=== PATIENT | female | born 1940 | race Caucasian/White ===

== ENCOUNTER 2017-01-31 07:00 | Day surgery (SDC) | payer MEDICARE, BC ==
[2017-01-28 15:43] VITALS: BMI 34.0
[~2017-01-31 07:00] MED LIST: LACTATED RINGERS 1,000 ML IV SCH
[2017-01-31 07:16] VITALS: TEMP 97.6
[2017-01-31 07:26] LABS: Glucose,Whole Blood 115 mg/dL (75-99)
[2017-01-31] MEDS ORDERED: LACTATED RINGERS 1,000 ML IV ONE (07:26)
[2017-01-31] MEDS ORDERED: PROPOFOL 10 MG/ML 20 ML VIAL IV ONE (07:30)
--- NOTE | 2017-01-31 08:04 | P.PCN ---
Date of Procedure: 01/31/17 Procedure(s) Performed: BRIEF HISTORY: Patient is a 76-year-old pleasant white female, scheduled for an elective colonoscopy as a part of evaluation of change in bowel habits for the last 7 weeks duration. She is been having severe constipation despite laxatives and regular basis. PROCEDURE PERFORMED: Colonoscopy with biopsy. PREOPERATIVE DIAGNOSIS: Change in bowel habits. IV sedation per Anesthesia. PROCEDURE: After informed consent was obtained, the patient, was brought into the endoscopy unit. IV sedation was administered by Anesthesia under continuous monitoring. Digital rectal examination was normal. Initially the Olympus CF- 160 flexible video colonoscope was then inserted in the rectum, gradually advanced into the cecum without any difficulty. Careful examination was performed as the scope was gradually being withdrawn. Ileocecal valve and the appendiceal orifice were visualized and appeared normal. Prep was excellent. Mucosa of the cecum, ascending colon, transverse colon, appeared normal. In the descending colon there was a 5 mm polyp that was removed by biopsy. In the sigmoid colon there was another 5 mm polyp removed by biopsy. Moderate left sided diverticulosis seen. The rest of the descending colon, sigmoid colon, and rectum appeared normal. Retroflexion was performed in the rectum and no lesions were seen. The patient tolerated the procedure well. IMPRESSION: 5 mm descending colon polyp status post removal by biopsy 5 mm sigmoid colon polyp status post removal by biopsy Moderate left sided diverticulosis RECOMMENDATIONS: Findings of this examination were discussed with the patient as well as her family. She was advised to follow with the biopsy results. She will continue with her current laxative regimen. If the biopsy shows tubular adenoma, she can have a repeat colonoscopy in 5 years.
[2017-01-31 08:19] VITALS: BP 165/74; PULSE 54; RESP 18
== END 2017-01-31 08:35 | disposition home or self-care (01) ==
LOC: ORWHC2ENDO 07:00
PROVIDERS: ATTEND Internal Medicine Gastroenterology
DX: D12.5 Benign neoplasm of sigmoid colon (principal); K63.5 Polyp of colon; K57.30 Diverticulosis of large intestine without perforation or abscess without bleeding; K59.00 Constipation, unspecified; I48.91 Unspecified atrial fibrillation; I10 Essential (primary) hypertension; E78.5 Hyperlipidemia, unspecified; Z86.718 Personal history of other venous thrombosis and embolism; Z86.711 Personal history of pulmonary embolism; J44.9 Chronic obstructive pulmonary disease, unspecified; Z99.81 Dependence on supplemental oxygen; F39 Unspecified mood [affective] disorder; K21.9 Gastro-esophageal reflux disease without esophagitis; Z88.0 Allergy status to penicillin; Z79.01 Long term (current) use of anticoagulants; Z79.82 Long term (current) use of aspirin; Z79.899 Other long term (current) drug therapy
CPT/HCPCS: 88305; 45380; J2704

== ENCOUNTER 2017-09-08 10:04 | Emergency (ER) | payer MEDICARE, BC ==
[2017-09-08] MEDS ORDERED: HYDROcodone/APAP 5-325MG 1 EACH TAB PO STA (11:36)
--- NOTE | 2017-09-08 11:40 | ED ---
Extremity Problem HPI - General Chief complaint: Extremity Problem,Nontraumatic Stated complaint: rt knee pain Time Seen by Provider: 09/08/17 10:28 Source: patient Mode of arrival: wheelchair Limitations: no limitations - History of Present Illness Initial comments: Patient is a 77-year-old female with a history of MTHFR mutation, multiple DVTs , pulmonary embolism, and [place] filter, currently under alto, who presents with a chief complaint of right-sided knee and lower leg pain. The patient cannot identify inciting incident or pain. She describes it as sharp, dull, and aching. She states it's worse with movement, alleviated with rest. She's been trying Tylenol for pain relief without effect. Patient denies any swelling , she denies missing any doses of her medication. She denies shortness of breath, or chest pain. - Related Data Home Medications Medication Instructions Recorded Confirmed Atorvastatin Calcium [Lipitor] 10 mg PO HS 01/28/17 09/08/17 Brinzolamide/Brimonidine Tart 1 drop BOTH EYES BID 01/28/17 09/08/17 [Simbrinza 1%-0.2% Eye Drops] Fluticasone/Vilanterol [Breo 1 inhalation PO RT-DAILY 01/28/17 09/08/17 Ellipta 100-25 Mcg Inhaler] Folic Acid 1 mg PO DAILY 01/28/17 09/08/17 Gabapentin [Neurontin] 300 mg PO TID 01/28/17 09/08/17 Losartan Potassium [Cozaar] 25 mg PO QAM 01/28/17 09/08/17 Polyethylene Glycol 3350 [Miralax] 17 gm PO DAILY 01/28/17 09/08/17 Psyllium Husk 100% [Metamucil 1 dose PO DAILY 01/28/17 09/08/17 Packet] Sertraline HCl [Zoloft] 100 mg PO QAM 01/28/17 09/08/17 Travoprost [Travatan Z 0.004%] 1 drop BOTH EYES HS 01/28/17 09/08/17 amLODIPine [Norvasc] 10 mg PO HS 01/28/17 09/08/17 clonazePAM [KlonoPIN] 0.5 mg PO HS 01/28/17 09/08/17 Rivaroxaban [Xarelto] 20 mg PO HS 09/08/17 09/08/17 Previous Rx's Medication Instructions Recorded Acetaminophen [Tylenol Extra 1,000 mg PO Q6H PRN #28 tablet MDD 09/08/17 Strength] 4000 mg HYDROcodone/APAP 5-325MG [[place] 1 tab PO Q6HR PRN 3 Days #12 tab 09/08/17 5-325] Allergies Allergy/AdvReac Type Severity Reaction Status Date / Time Penicillins Allergy Rash/Hives Verified 09/08/17 10:24 Review of Systems ROS Statement: Those systems with pertinent positive or pertinent negative responses have been documented in the HPI. ROS Other: All systems not noted in ROS Statement are negative. Musculoskeletal: Reports: arthralgia Past Medical History Past Medical History: Atrial Fibrillation, Cancer, COPD, Diabetes Mellitus, Deep Vein Thrombosis (DVT), GERD/Reflux, Hyperlipidemia, Hypertension, Pulmonary Embolus (PE) Additional Past Medical History / Comment(s): "stomach pain r/t hernia being bulged out"-currently wearing binder,currently having constipation unable to have bowel movement without laxative,hiatal hernia,uses O2 2L NC @ HS, fall hx, glaucoma fabrizio eyes,MTHFR clotting disorder, hemolyctic anemia,rt breast CA-no rad or chemo,PE x3 episodes last 2015 History of Any Multi-Drug Resistant Organisms: None Reported Past Surgical History: Appendectomy, Hysterectomy Additional Past Surgical History / Comment(s): ross filter,rt mastectomy, spleenectomyn,hernia repair x 2,bowel resection r/t diverticulitis,pericardial window Past Anesthesia/Blood Transfusion Reactions: No Reported Reaction Past Psychological History: Depression Smoking Status: Never smoker Past Alcohol Use History: None Reported Past Drug Use History: None Reported - Past Family History Mother Family Medical History: No Reported History Father Family Medical History: No Reported History General Exam Limitations: no limitations General appearance: alert, in no apparent distress Head exam: Present: atraumatic, normocephalic Eye exam: Present: normal appearance ENT exam: Present: normal exam Neck exam: Present: normal inspection Respiratory exam: Present: normal lung sounds bilaterally. Absent: respiratory distress, wheezes Cardiovascular Exam: Present: normal rhythm, bradycardia, systolic murmur GI/Abdominal exam: Present: soft. Absent: distended, tenderness Rectal exam: Present: deferred Extremities exam: Present: tenderness, calf tenderness, other (Patient has tenderness along the lateral joint line of the right knee. There is some tenderness palpation of the right calf. There is no asymmetry noted.) Back exam: Present: normal inspection Neurological exam: Present: alert, oriented X3 Psychiatric exam: Present: normal affect, normal mood Skin exam: Present: warm, dry, intact Course Vital Signs 09/08/17 09/08/17 10:09 10:59 Temperature 98.2 F Pulse Rate 54 L 56 L Respiratory 20 20 Rate Blood Pressure 127/76 170/69 O2 Sat by Pulse 99 94 L Oximetry Medical Decision Making - Medical Decision Making Patient presents with a chief complaint of right knee pain. She has an extensive history of clotting disorders and DVTs. Patient currently on several toe with a [place] filter. On initial evaluation, vitals are stable, patient is in no acute distress. Patient given one [place] for pain. Patient be evaluated with venous duplex, and right knee x-rays. 1:32 PM X-rays show tricompartmental knee arthritis. Ultrasound does not show any evidence of DVT, however there is a Venegas cyst noted, consistent with history and physical examination. At this time, the patient is instructed to take Tylenol for pain, she was given a prescription for [place], 3 days, and instructed to only use this for severe pain. The patient was instructed to not take additional Tylenol if she was going to take [place]. Patient was instructed to follow up with primary care and orthopedics in 1-2 days, return to the emergency department if symptoms worsen or change. Disposition Clinical Impression: Bakers cyst Disposition: HOME SELF-CARE Condition: Good Prescriptions: Acetaminophen [Tylenol Extra Strength] 1,000 mg PO Q6H PRN #28 tablet MDD 4000 mg PRN Reason: Pain HYDROcodone/APAP 5-325MG [[place] 5-325] 1 tab PO Q6HR PRN 3 Days #12 tab PRN Reason: Severe Pain Is patient prescribed a controlled substance at d/c from ED?: Yes When asked, does pt state using other controlled substances?: No If prescribed controlled substance>3 days was MAPS reviewed?: Prescribed <3 Days If opioid is for acute pain is fill amount 7 days or less?: No If Rx opioid, was Start Talking consent form obtained?: Yes Referrals: Rg Barba DO [Primary Care Provider] - 1-2 days Brandon Reynolds MD [STAFF PHYSICIAN] - 1-2 days Raffaele Dumont MD [STAFF PHYSICIAN] - 1-2 days
--- NOTE | 2017-09-08 11:59 | XR ---
EXAMINATION TYPE: XR knee complete RT DATE OF EXAM: 09/08/2017 COMPARISON: NONE HISTORY: 77-year-old female with right knee pain for 3 days TECHNIQUE: 3 views FINDINGS: There is tricompartmental degenerative spurring with a moderate knee joint effusion. Meniscal chondro calcinosis. Mild extrusion of the body of the medial meniscus. No acute fracture, subluxation, or dis location. Extensor mechanism is intact. Some additional synovial calcifications are noted. IMPRESSION: 1. Tricompartmental osteoarthrosis. Given a moderate knee joint effusion and meniscal chondrocalcinos is/synovial calcification, consider CPPD. 2. The medial meniscus is likely torn as there is mild extrusion of the meniscal body. 3. No acute osseous abnormality seen. Consider MRI to assess for internal derangement.
--- NOTE | 2017-09-08 12:24 | US ---
EXAMINATION TYPE: US venous doppler duplex LE RT DATE OF EXAM: 09/08/2017 12:17 PM COMPARISON: NONE CLINICAL HISTORY: 77-year-old female Right knee Pain. History of DVT per patient, currently taking bl ood thinners SIDE PERFORMED: Right TECHNIQUE: The lower extremity deep venous system is examined utilizing real time linear array sonog nehemiah with graded compression, doppler sonography and color-flow sonography. FINDINGS: VESSELS IMAGED: External Iliac Vein (EIV) Common Femoral Vein Deep Femoral Vein Greater Saphenous Vein * Femoral Vein Popliteal Vein Small Saphenous Vein * Proximal Calf Veins (* superficial vessels) Right Leg: Negative for DVT Biomedical Engineer notes: Within the right popliteal fossa, there is a complex area visualized measuring 5.3 x 1.1 x 1.2 cm, probable venegas's cyst IMPRESSION: 1. No evidence for DVT within the right lower extremity imaged from the groin to the upper calf. 2. Small to moderate-sized complex Venegas's cyst measuring 5.3 x 1.2 cm.
[2017-09-08 13:54] VITALS: BP 184/90; PULSE 78; RESP 16; TEMP 98
== END 2017-09-08 13:55 | disposition home or self-care (01) ==
LOC: EC 10:04
DX: M71.21 Synovial cyst of popliteal space [Baker], right knee (principal); I48.91 Unspecified atrial fibrillation; J44.9 Chronic obstructive pulmonary disease, unspecified; F32.9 Major depressive disorder, single episode, unspecified; E78.5 Hyperlipidemia, unspecified; I10 Essential (primary) hypertension; Z86.711 Personal history of pulmonary embolism; Z86.718 Personal history of other venous thrombosis and embolism; Z85.3 Personal history of malignant neoplasm of breast; Z90.11 Acquired absence of right breast and nipple; Z98.890 Other specified postprocedural states; Z79.01 Long term (current) use of anticoagulants; Z79.51 Long term (current) use of inhaled steroids; Z79.899 Other long term (current) drug therapy; Z88.0 Allergy status to penicillin
CPT/HCPCS: 99284

== ENCOUNTER 2017-09-20 08:24 | Inpatient (IN) | payer MEDICARE, BC ==
[2017-09-20] MEDS ORDERED: ASPIRIN 81 MG PO STA (09:01)
[2017-09-20] MEDS ORDERED: NITROGLYCERIN OINT 1 INCH/GM PACKET TOPICAL STA (09:01)
[2017-09-20 09:23] LABS: Basophils # (A) 0.1 k/uL (0-0.2); Basophils % (A) 1 %; Eosinophils # (A) 0.2 k/uL (0-0.7); Eosinophils % (A) 3 %; HCT 42.6 % (34.0-46.0); HGB 13.7 gm/dL (11.4-16.0); Lymphocytes # (A) 1.8 k/uL (1.0-4.8); Lymphocytes % (A) 20 %; MCH 29.6 pg (25.0-35.0); MCHC 32.1 g/dL (31.0-37.0); MCV 92.4 fL (80.0-100.0); Mean Platelet Volume 8.5; Monocytes # (A) 0.3 k/uL (0-1.0); Monocytes % (A) 4 %; Neutrophils # (A) 6.5 k/uL (1.3-7.7); Neutrophils % (A) 72 %; Platelet Count 364 k/uL (150-450); RBC 4.61 m/uL (3.80-5.40); RDW 13.2 % (11.5-15.5)
--- NOTE | 2017-09-20 09:29 | XR ---
EXAMINATION TYPE: XR chest 2V DATE OF EXAM: 09/20/2017 COMPARISON: NONE HISTORY: Chest pain and shortness of breath TECHNIQUE: Frontal and lateral views of the chest are obtained. FINDINGS: There is volume loss in the right hemithorax, right hemidiaphragm is elevated. Patchy basi lar density is noted. Suspect the heart is enlarged. Patient is rotated. No evident pneumothorax. Pul monary vascularity and jesus within normal limits. There are overlying cardiac leads. Post procedural change noted in the abdomen. IMPRESSION: Rotated expiratory exam. Probable basilar atelectasis, correlate to exclude pneumonia. T here may be cardiomegaly. Follow-up is recommended.
[2017-09-20 09:32] LABS: ALT 28 U/L (9-52); AST 16 U/L (14-36); Albumin 3.6 g/dL (3.5-5.0); Alkaline Phosphatase 99 U/L (38-126); Anion Gap 10 mmol/L; Blood Urea Nitrogen 9 mg/dL (7-17); Calcium 10.1 mg/dL (8.4-10.2); Carbon Dioxide 28 mmol/L (22-30); Chloride 103 mmol/L (98-107); Glucose 127 mg/dL (74-99); Potassium 4.4 mmol/L (3.5-5.1); Sodium 141 mmol/L (137-145); Total Protein 6.3 g/dL (6.3-8.2)
--- NOTE | 2017-09-20 09:41 | ED ---
General Adult HPI - General Chief complaint: Shortness of Breath Stated complaint: SOB/Chest heaviness Time Seen by Provider: 09/20/17 08:25 Source: patient, RN notes reviewed Mode of arrival: wheelchair Limitations: no limitations - History of Present Illness Initial comments: This is a 77-year-old female presents to the emergency department complaining of shoulder pain since Friday however as of yesterday she started having chest pain radiating down her left arm and she feels short of breath and is also nauseated. Patient denies any recent fever chills or cough. Patient denies abdominal pain patient denies nausea vomiting diarrhea. Patient denies any headache patient denies numbness weakness. Patient denies any lightheadedness dizziness or near syncopal episode. Patient states she does have a clotting disorder but she has a [place] filter in as well as on Xarelto. - Related Data Home Medications Medication Instructions Recorded Confirmed Atorvastatin Calcium [Lipitor] 10 mg PO HS 01/28/17 09/08/17 Brinzolamide/Brimonidine Tart 1 drop BOTH EYES BID 01/28/17 09/08/17 [Simbrinza 1%-0.2% Eye Drops] Fluticasone/Vilanterol [Breo 1 inhalation PO RT-DAILY 01/28/17 09/08/17 Ellipta 100-25 Mcg Inhaler] Folic Acid 1 mg PO DAILY 01/28/17 09/08/17 Gabapentin [Neurontin] 300 mg PO TID 01/28/17 09/08/17 Losartan Potassium [Cozaar] 25 mg PO QAM 01/28/17 09/08/17 Polyethylene Glycol 3350 [Miralax] 17 gm PO DAILY 01/28/17 09/08/17 Psyllium Husk 100% [Metamucil 1 dose PO DAILY 01/28/17 09/08/17 Packet] Sertraline HCl [Zoloft] 100 mg PO QAM 01/28/17 09/08/17 Travoprost [Travatan Z 0.004%] 1 drop BOTH EYES HS 01/28/17 09/08/17 amLODIPine [Norvasc] 10 mg PO HS 01/28/17 09/08/17 clonazePAM [KlonoPIN] 0.5 mg PO HS 01/28/17 09/08/17 Rivaroxaban [Xarelto] 20 mg PO HS 09/08/17 09/08/17 Previous Rx's Medication Instructions Recorded Acetaminophen [Tylenol Extra 1,000 mg PO Q6H PRN #28 tablet MDD 09/08/17 Strength] 4000 mg HYDROcodone/APAP 5-325MG [[place] 1 tab PO Q6HR PRN 3 Days #12 tab 09/08/17 5-325] Allergies Allergy/AdvReac Type Severity Reaction Status Date / Time Penicillins Allergy Rash/Hives Verified 09/08/17 10:24 Sulfa (Sulfonamide Allergy Rash/Hives Verified 09/20/17 08:29 Antibiotics) Review of Systems ROS Statement: Those systems with pertinent positive or pertinent negative responses have been documented in the HPI. ROS Other: All systems not noted in ROS Statement are negative. Past Medical History Past Medical History: Atrial Fibrillation, Cancer, COPD, Diabetes Mellitus, Deep Vein Thrombosis (DVT), GERD/Reflux, Hyperlipidemia, Hypertension, Pulmonary Embolus (PE) Additional Past Medical History / Comment(s): "stomach pain r/t hernia being bulged out"-currently wearing binder,currently having constipation unable to have bowel movement without laxative,hiatal hernia,uses O2 2L NC @ HS, fall hx, glaucoma fabrizio eyes,MTHFR clotting disorder, hemolyctic anemia,rt breast CA-no rad or chemo,PE x3 episodes last 2015 History of Any Multi-Drug Resistant Organisms: None Reported Past Surgical History: Appendectomy, Hysterectomy Additional Past Surgical History / Comment(s): [place] filter,rt mastectomy, spleenectomyn,hernia repair x 2,bowel resection r/t diverticulitis,pericardial window Past Anesthesia/Blood Transfusion Reactions: No Reported Reaction Past Psychological History: Depression Smoking Status: Never smoker Past Alcohol Use History: None Reported Past Drug Use History: None Reported - Past Family History Mother Family Medical History: No Reported History Father Family Medical History: No Reported History General Exam - General Exam Comments Initial Comments: GENERAL: Patient is well-developed and well-nourished. Patient is nontoxic and well- hydrated and is in mild distress. ENT: Neck is soft and supple. No significant lymphadenopathy is noted. Oropharynx is clear. Moist mucous membranes. Neck has full range of motion without eliciting any pain. EYES: The sclera were anicteric and conjunctiva were pink and moist. Extraocular movements were intact and pupils were equal round and reactive to light. Eyelids were unremarkable. PULMONARY: Unlabored respirations. Good breath sounds bilaterally. No audible rales rhonchi or wheezing was noted. CARDIOVASCULAR: There is a regular rate and rhythm without any murmurs gallops or rubs. ABDOMEN: Soft and nontender with normal bowel sounds. No palpable organomegaly was noted. There is no palpable pulsatile mass. SKIN: Skin is clear with no lesions or rashes and otherwise unremarkable. NEUROLOGIC: Patient is alert and oriented x3. Cranial nerves II through XII are grossly intact. Motor and sensory are also intact. Normal speech, volume and content. Symmetrical smile. MUSCULOSKELETAL: Normal extremities with adequate strength and full range of motion. No lower extremity swelling or edema. No calf tenderness. LYMPHATICS: No significant lymphadenopathy is noted PSYCHIATRIC: Normal psychiatric evaluation. Normal interpersonal interactions appears functionally intact in deals appropriately with others. No signs of depression. No signs of anxiety Limitations: no limitations Course Vital Signs 09/20/17 09/20/17 08:25 10:30 Temperature 98.1 F Pulse Rate 64 59 L Respiratory 20 20 Rate Blood Pressure 167/71 163/76 O2 Sat by Pulse 96 98 Oximetry Medical Decision Making - Medical Decision Making EKG shows a sinus bradycardia 57 bpm TX interval is on a 54 QRS is 90 QT intervals 454 QTC is 441. EKG shows some inferior lead slight ST segment elevation. Chest x-ray shows no acute abnormality. I spoke with Dr. Ashraf agreed to admit the patient admitted the patient I consult cardiology. - Lab Data Result diagrams: 09/20/17 08:50 09/20/17 08:50 Lab Results 09/20/17 09/20/17 09/20/17 Range/Units 08:50 08:50 08:50 WBC 9.0 (3.8-10.6) k/uL RBC 4.61 (3.80-5.40) m/uL Hgb 13.7 (11.4-16.0) gm/dL Hct 42.6 (34.0-46.0) % MCV 92.4 (80.0-100.0) fL MCH 29.6 (25.0-35.0) pg MCHC 32.1 (31.0-37.0) g/dL RDW 13.2 (11.5-15.5) % Plt Count 364 (150-450) k/uL Neutrophils % 72 % Lymphocytes % 20 % Monocytes % 4 % Eosinophils % 3 % Basophils % 1 % Neutrophils # 6.5 (1.3-7.7) k/uL Lymphocytes # 1.8 (1.0-4.8) k/uL Monocytes # 0.3 (0-1.0) k/uL Eosinophils # 0.2 (0-0.7) k/uL Basophils # 0.1 (0-0.2) k/uL PT (9.0-12.0) sec INR (<1.2) APTT (22.0-30.0) sec D-Dimer (<0.60) mg/L FEU Sodium 141 (137-145) mmol/L Potassium 4.4 (3.5-5.1) mmol/L Chloride 103 (98-107) mmol/L Carbon Dioxide 28 (22-30) mmol/L Anion Gap 10 mmol/L BUN 9 (7-17) mg/dL Creatinine 0.70 (0.52-1.04) mg/dL Est GFR (CKD-EPI)AfAm >90 (>60 ml/min/1.73 sqM) Est GFR (CKD-EPI)NonAf 84 (>60 ml/min/1.73 sqM) Glucose 127 H (74-99) mg/dL Calcium 10.1 (8.4-10.2) mg/dL Magnesium 2.0 (1.6-2.3) mg/dL Total Bilirubin 1.0 (0.2-1.3) mg/dL AST 16 (14-36) U/L ALT 28 (9-52) U/L Alkaline Phosphatase 99 (38-126) U/L Total Creatine Kinase 36 (30-135) U/L CK-MB (CK-2) 1.4 (0.0-2.4) ng/mL CK-MB (CK-2) Rel Index 3.9 Troponin I <0.012 (0.000-0.034) ng/mL Total Protein 6.3 (6.3-8.2) g/dL Albumin 3.6 (3.5-5.0) g/dL 09/20/17 09/20/17 Range/Units 08:50 08:50 WBC (3.8-10.6) k/uL RBC (3.80-5.40) m/uL Hgb (11.4-16.0) gm/dL Hct (34.0-46.0) % MCV (80.0-100.0) fL MCH (25.0-35.0) pg MCHC (31.0-37.0) g/dL RDW (11.5-15.5) % Plt Count (150-450) k/uL Neutrophils % % Lymphocytes % % Monocytes % % Eosinophils % % Basophils % % Neutrophils # (1.3-7.7) k/uL Lymphocytes # (1.0-4.8) k/uL Monocytes # (0-1.0) k/uL Eosinophils # (0-0.7) k/uL Basophils # (0-0.2) k/uL PT 12.5 H (9.0-12.0) sec INR 1.3 H (<1.2) APTT 32.9 H (22.0-30.0) sec D-Dimer 0.39 (<0.60) mg/L FEU Sodium (137-145) mmol/L Potassium (3.5-5.1) mmol/L Chloride (98-107) mmol/L Carbon Dioxide (22-30) mmol/L Anion Gap mmol/L BUN (7-17) mg/dL Creatinine (0.52-1.04) mg/dL Est GFR (CKD-EPI)AfAm (>60 ml/min/1.73 sqM) Est GFR (CKD-EPI)NonAf (>60 ml/min/1.73 sqM) Glucose (74-99) mg/dL Calcium (8.4-10.2) mg/dL Magnesium (1.6-2.3) mg/dL Total Bilirubin (0.2-1.3) mg/dL AST (14-36) U/L ALT (9-52) U/L Alkaline Phosphatase (38-126) U/L Total Creatine Kinase (30-135) U/L CK-MB (CK-2) (0.0-2.4) ng/mL CK-MB (CK-2) Rel Index Troponin I (0.000-0.034) ng/mL Total Protein (6.3-8.2) g/dL Albumin (3.5-5.0) g/dL Disposition Clinical Impression: Unstable angina Disposition: ADMITTED IP TO THIS HOSP Referrals: Rg Barba DO [Primary Care Provider] - 1-2 days Time of Disposition: 10:51
[2017-09-20 09:45] LABS: INR 1.3 (<1.2); Partial Thromboplastin Time 32.9 sec (22.0-30.0); Prothrombin Time 12.5 sec (9.0-12.0)
[2017-09-20 09:56] LABS: Creatine Kinase 36 U/L (30-135)
[2017-09-20 10:09] LABS: Creatine Kinase MB 1.4 ng/mL (0.0-2.4); Troponin I <0.012 ng/mL (0.000-0.034)
[2017-09-20] MEDS ORDERED: HEPARIN SODIUM,PORCINE 5,000 UNIT/ML 1 ML VIAL IV ONE (10:48)
[2017-09-20] MEDS ORDERED: NITROGLYCERIN SL TABS 0.4 MG TAB SUBLINGUAL PRN (10:52)
[2017-09-20] MEDS ORDERED: HEPARIN SOD,PORK IN 0.45% NACL 25,000 UNIT in 0.45% NACL 1 500ML.BAG IV SCH (11:00)
[2017-09-20 15:41] LABS: Creatine Kinase 37 U/L (30-135)
[2017-09-20] MEDS ORDERED: POLYETHYLENE GLYCOL 3350 17 GM POWD.PACK PO PRN (15:51)
[2017-09-20] MEDS ORDERED: PSYLLIUM HUSK 100% 6 GM PACKET PO PRN (15:51)
[2017-09-20 15:55] LABS: Creatine Kinase MB 1.1 ng/mL (0.0-2.4); Troponin I <0.012 ng/mL (0.000-0.034)
[2017-09-20] MEDS: NITROGLYCERIN OINT 1 INCH/GM PACKET TOPICAL SCH ×2 (17:10→17:14)
--- NOTE | 2017-09-20 17:14 | HP ---
HISTORY AND PHYSICAL DATE OF ADMISSION: 09/20/2017 PRESENTING COMPLAINT: Chest pressure. HISTORY OF PRESENTING COMPLAINT: A very pleasant 77-year-old patient who follows Dr. Rg Phipps. 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 Felix out of the [facility]. The patient's chronic stable medical conditions include COPD, GERD, hypertension, hyperlipidemia, abdominal wall hernia, hiatal hernia, does wear oxygen at night, MTHFR mutation and is chronically on Xarelto for history of PE x3. The patient has also had atrial fibrillation. The patient on Friday that is 4 days ago noticed some pain in the neck and the shoulder area and also noticed some left-sided lower chest pain with deep breathing, was diagnosed to have pleurisy by her family doctor, was started on a sulfa drugs, developed hives and then discontinued the same. The patient noticed yesterday that she was short of breath with any increased activity. She was getting chest pressure and symptoms were also going to her shoulder and left arm. She also noticed the blood pressure to be elevated up to 170s at home. Patient did have a cardiac cath over 30 years ago that was negative. Because of these symptoms, she decided to come in to get a cardiac cause ruled out. Initial troponin was negative. Initial EKG was unremarkable. REVIEW OF SYSTEMS: CONSTITUTIONAL: Tired. HEENT: None. RESPIRATORY: Occasional wheezing. CARDIOVASCULAR: As above. GASTROINTESTINAL: Heartburn. GENITOURINARY: None. MUSCULOSKELETAL: None. . DERMATOLOGICAL: HEMATOLOGICAL: None. LYMPHATICS: None. PSYCHIATRY: None. NEUROLOGICAL: None. PAST MEDICAL HISTORY: Past medical history of atrial fibrillation, COPD, PE x3, GERD, hyperlipidemia, hypertension, abdominal wall hernia, he wears binder, constipation, glaucoma bilateral eyes, MTHFR clotting disorder, hemolytic anemia, right breast cancer, no radiation or chemo. Last episode of PE in 2016. PAST SURGICAL HISTORY: Appendectomy, hysterectomy, Ross filter, right mastectomy, splenectomy, hernia repair x2, bowel resection due to diverticulitis, pericardial window. SOCIAL HISTORY: The patient lives at [facility]. Does not smoke or drink alcohol. FAMILY HISTORY: Reviewed noncontributory to presentation. HOME MEDICATIONS: 1. Klonopin 0.5 mg p.o. every 48 hours. 2. Norvasc 10 mg at bedtime. 3. Travatan Z 0.004% 1 drop to both eyes at bedtime. 4. Zoloft 100 mg p.o. daily. 5. Xarelto 20 mg p.o. daily. 6. Metamucil 1 dose daily p.r.n. 7. MiraLAX 17 grams p.o. daily p.r.n. 8. Cozaar 25 mg p.o. daily. 9. Probiotic 1 capsule p.o. daily. 10.Neurontin 300 mg p.o. t.i.d. 11.Lasix 20 mg p.o. daily. 12.Folic acid 1 mg p.o. daily. 13.Breo Ellipta 100/25 one puff daily. 14.Simbrinza 1/0.2% one drop to both eyes b.i.d. 15.Lipitor 10 mg at bedtime. 16.Tylenol Extra Strength. ALLERGIES: Allergies to PENICILLIN and SULFA. PHYSICAL EXAMINATION: On examination, vital signs on presentation, temperature 98.1, pulse 64, respirations 20, blood pressure 167/71, pulse ox 96% on room air. GENERAL APPEARANCE: Well built, BMI 34.8. Lying in bed, not in distress. EYES: Pupils equal, Conjunctivae normal. HENT: External appearance of nose and ears normal. Oral cavity normal. NECK: JVD not raised. Mass not palpable. RESPIRATORY: Effort increased. LUNGS: Slightly decreased breath sounds. Some mild expiratory wheezing. CARDIOVASCULAR: First and second sounds normal. No edema. ABDOMEN: Soft, nontender. Abdominal wall hernia. Liver and spleen not palpable. LYMPHATIC: No lymph nodes palpable in the neck and axillae. PSYCHIATRY: Alert and oriented x3. Mood and affect normal. NEUROLOGICAL: Pupils equal. Cranial nerves grossly intact. Power and sensation grossly intact. INVESTIGATIONS: White count 9, hemoglobin 13.7. Potassium 4.4. BUN and creatinine normal. Troponin x2 negative. EKG normal sinus rhythm. ASSESSMENT: 1. This is a patient who presents with rather cardiac sounding presentation, probably unstable angina whose risk factors include her age, hypertension and MTHFR mutation though patient is chronically on Xarelto. 2. Chronic obstructive pulmonary disease in a nonsmoker. 3. Chronic pulmonary embolism x3 chronically on Xarelto. 4. Gastroesophageal reflux disease. 5. Essential hypertension. 6. Hyperlipidemia. 7. Abdominal wall hernia, chronic. 8. Chronic hypoxic respiratory failure, does use oxygen at night. 9. MTHFR mutation. 10.History of atrial fibrillation, currently in sinus rhythm. PLAN: Nitrates were added. Serial cardiac enzymes were ordered though patient's presentation for 1 week. Troponins already negative. Home medications are resumed. Cardiology is being consulted. Care was discussed with the patient. We will also add breathing treatments. We will order a 2-D echocardiogram. Care was discussed with the patient. MMNIKOSL / IJN: [id number] /
[2017-09-20] MEDS: ACETAMINOPHEN TAB 500 MG TAB PO PRN (17:24)
[2017-09-20] MEDS: GABAPENTIN 300 MG CAP PO SCH ×2 (17:26→20:25)
[2017-09-20] MEDS: RIVAROXABAN 20 MG TAB PO SCH (17:26)
[2017-09-20 17:54] VITALS: BMI 34.0
[2017-09-20] MEDS: ATORVASTATIN 10 MG TAB PO SCH (20:24)
[2017-09-20] MEDS: amLODIPine 10 MG TAB PO SCH (20:24)
[2017-09-20] MEDS: FAMOTIDINE 20 MG TAB PO SCH (20:25)
[2017-09-20] MEDS: BRIMONIDINE TARTRATE 0.2% DROPS 5 ML BTL BOTH EYES SCH (20:34)
[2017-09-20] MEDS: DORZOLAMIDE HCL 2% DROPS 10 ML BTL BOTH EYES SCH (20:34)
[2017-09-20] MEDS: LATANOPROST 0.005% OPHTH DROPS 2.5 ML BTL BOTH EYES SCH (20:34)
[2017-09-20 21:07] LABS: Creatine Kinase 44 U/L (30-135)
[2017-09-20 21:20] LABS: Creatine Kinase MB 0.8 ng/mL (0.0-2.4); Troponin I <0.012 ng/mL (0.000-0.034)
[2017-09-21] MEDS: NITROGLYCERIN OINT 1 INCH/GM PACKET TOPICAL SCH ×5 (00:02→23:26)
[2017-09-21 02:42] LABS: Cholesterol 137 mg/dL (<200); HDL Cholesterol 56 mg/dL (40-60); LDL Cholesterol,Calculated 63 mg/dL (0-99); Triglycerides 92 mg/dL (<150)
[2017-09-21] MEDS: ACETAMINOPHEN TAB 500 MG TAB PO PRN ×2 (06:09→23:25)
[2017-09-21] MEDS: GABAPENTIN 300 MG CAP PO SCH ×3 (08:06→20:19)
[2017-09-21] MEDS: FOLIC ACID 1 MG TAB PO SCH (08:06)
[2017-09-21] MEDS: SERTRALINE 100 MG TAB PO SCH (08:06)
[2017-09-21] MEDS: ASPIRIN 325 MG TAB PO SCH (08:06)
[2017-09-21] MEDS: LOSARTAN 25 MG TAB PO SCH (08:06)
[2017-09-21] MEDS: BRIMONIDINE TARTRATE 0.2% DROPS 5 ML BTL BOTH EYES SCH ×2 (08:07→20:20)
[2017-09-21] MEDS: DORZOLAMIDE HCL 2% DROPS 10 ML BTL BOTH EYES SCH ×2 (08:07→20:20)
[2017-09-21] MEDS: FUROSEMIDE 20 MG TAB PO SCH (08:07)
[2017-09-21] MEDS: FAMOTIDINE 20 MG TAB PO SCH ×2 (08:07→20:19)
[2017-09-21] MEDS: SYMBICORT 80-4.5 MCG INHALER INHALATION SCH ×2 (08:54→20:02)
[2017-09-21] MEDS ORDERED: clonazePAM 0.5 MG TAB PO SCH (09:00)
--- NOTE | 2017-09-21 10:28 | P.CRDCN ---
History of Present Illness Consult date: 09/21/17 Chief complaint: Chest discomfort History of present illness: This is a pleasant 77-year-old female patient who does see a liquor runner out of the town presented to the hospital complaining of chest discomfort. The patient does have an extensive past medical history consistent of paroxysmal atrial fibrillation, chronic obstructive pulmonary disease, hypertension, dyslipidemia, and hypercoagulopathy on oral anticoagulation. She was in her usual state of health until about a week ago when she started experiencing intermittent episodes of chest discomfort patient described the discomfort as a pressure across the chest with radiation to the left arm and with associated shortness of breath. No dizziness or lightheadedness and no sweating. She clearly states that the discomfort is only with exertion and better with resting. The discomfort was severe enough to come to the emergency room yesterday where she was given nitroglycerin patch with significant improvement in her discomfort. She has been pain free since then. The EKG showed sinus rhythm without any significant ST or T-wave abnormalities. 3 sets of cardiac enzymes checked and came in to be unremarkable. The chest x -ray did not show any acute abnormalities. I did advice the patient to undergo a heart catheterization in view of the classical nature of her symptoms which is angina. The patient does have multiple risk factors including hypertension, dyslipidemia, and also she is diabetic. She would like to her daughter before she make a decision. Meanwhile I will continue the current medical treatment with aspirin, metoprolol , and statin. I would also obtain an echocardiogram was Doppler. Past Medical History Past Medical History: Atrial Fibrillation, Cancer, COPD, Diabetes Mellitus, Deep Vein Thrombosis (DVT), GERD/Reflux, Hyperlipidemia, Hypertension, Pulmonary Embolus (PE) Additional Past Medical History / Comment(s): "stomach pain r/t hernia being bulged out"-currently wearing binder,currently having constipation unable to have bowel movement without laxative,hiatal hernia,uses O2 2L NC @ HS, fall hx, glaucoma fabrizio eyes,MTHFR clotting disorder, hemolyctic anemia,rt breast CA-no rad or chemo,PE x3 episodes last 2015 History of Any Multi-Drug Resistant Organisms: None Reported Past Surgical History: Appendectomy, Hysterectomy Additional Past Surgical History / Comment(s): uriah filter,rt mastectomy, spleenectomyn,hernia repair x 2,bowel resection r/t diverticulitis,pericardial window Past Anesthesia/Blood Transfusion Reactions: No Reported Reaction Past Psychological History: Depression Smoking Status: Never smoker Past Alcohol Use History: None Reported Past Drug Use History: None Reported - Past Family History Mother Family Medical History: No Reported History Father Family Medical History: No Reported History Medications and Allergies Home Medications Medication Instructions Recorded Confirmed Type Atorvastatin Calcium [Lipitor] 10 mg PO HS 01/28/17 09/20/17 History Brinzolamide/Brimonidine Tart 1 drop BOTH EYES BID 01/28/17 09/20/17 History [Simbrinza 1%-0.2% Eye Drops] Fluticasone/Vilanterol [Breo 1 puff INHALATION RT-DAILY 01/28/17 09/20/17 History Ellipta 100-25 Mcg Inhaler] Folic Acid 1 mg PO DAILY 01/28/17 09/20/17 History Gabapentin [Neurontin] 300 mg PO TID 01/28/17 09/20/17 History Losartan Potassium [Cozaar] 25 mg PO QAM 01/28/17 09/20/17 History Polyethylene Glycol 3350 [Miralax] 17 gm PO DAILY PRN 01/28/17 09/20/17 History Psyllium Husk 100% [Metamucil 1 dose PO DAILY PRN 01/28/17 09/20/17 History Packet] Sertraline HCl [Zoloft] 100 mg PO QAM 01/28/17 09/20/17 History Travoprost [Travatan Z 0.004%] 1 drop BOTH EYES HS 01/28/17 09/20/17 History amLODIPine [Norvasc] 10 mg PO HS 01/28/17 09/20/17 History clonazePAM [KlonoPIN] 0.5 mg PO Q48H 01/28/17 09/20/17 History Acetaminophen [Tylenol Extra 1,000 mg PO Q6H PRN #28 tablet MDD 09/08/17 Rx Strength] 4000 mg Rivaroxaban [Xarelto] 20 mg PO DAILY@1700 09/08/17 09/20/17 History Furosemide [Lasix] 20 mg PO DAILY 09/20/17 09/20/17 History L.acidoph,Paracasei, B.lactis 1 cap PO DAILY 09/20/17 09/20/17 History [Probiotic] Allergies Allergy/AdvReac Type Severity Reaction Status Date / Time Penicillins Allergy Rash/Hives Verified 09/20/17 12:00 Sulfa (Sulfonamide Allergy Rash/Hives Verified 09/20/17 12:00 Antibiotics) Physical Exam Vitals: Vital Signs Temp Pulse Pulse Resp BP BP Pulse Ox 09/21/17 07:37 99.2 F 70 16 148/62 91 L 09/21/17 04:00 98.6 F 66 16 141/66 96 09/21/17 00:00 97.0 F L 57 L 16 110/46 94 L 09/20/17 20:00 97.7 F 52 L 18 139/72 95 09/20/17 16:00 98.8 F 52 L 16 144/63 96 09/20/17 13:15 97.4 F L 58 L 16 133/65 98 09/20/17 12:21 97.6 F 57 L 18 118/57 94 L 09/20/17 11:00 58 L 20 138/65 97 09/20/17 10:30 59 L 20 163/76 98 Intake and Output 09/20/17 09/21/17 09/21/17 22:59 06:59 14:59 Output Total 1 Balance -1 Output: Urine 1 Other: # Voids 2 Weight 79 kg 79.9 kg - Constitutional General appearance: no acute distress - Respiratory Respiratory: bilateral: CTA - Cardiovascular Rhythm: regular Heart sounds: normal: S1, S2 Abnormal Heart Sounds: systolic murmur Results 09/20/17 08:50 09/20/17 08:50 Cardiac Enzymes 09/20/17 09/20/17 Range/Units 14:44 20:25 CK-MB (CK-2) 1.1 0.8 (0.0-2.4) ng/mL Troponin I <0.012 <0.012 (0.000-0.034) ng/mL Lipids 09/20/17 Range/Units 08:50 Triglycerides 92 (<150) mg/dL Cholesterol 137 (<200) mg/dL HDL Cholesterol 56 (40-60) mg/dL Current Medications Generic Name Dose Route Start Last Admin Trade Name Freq PRN Reason Stop Dose Admin Acetaminophen 1,000 mg 09/20/17 15:51 09/21/17 06:09 Tylenol Tab PO 1,000 mg Q6H PRN Administration MILD Pain Amlodipine Besylate 10 mg 09/20/17 21:00 09/20/17 20:24 Norvasc PO 10 mg HS JOHNY Administration Aspirin 325 mg 09/21/17 09:00 09/21/17 08:06 Aspirin PO 325 mg DAILY JOHNY Administration Atorvastatin Calcium 10 mg 09/20/17 21:00 09/20/17 20:24 Lipitor PO 10 mg HS JOHNY Administration Brimonidine Tartrate 1 drops 09/20/17 21:00 09/21/17 08:07 Alphagan P 0.2% Ophth Soln BOTH EYES 1 drops BID JOHNY Administration Budesonide/Formoterol Fumarate 2 puff 09/21/17 08:00 09/21/17 08:54 Symbicort 80-4.5 Mcg Inhaler INHALATION 2 puff RT-BID JOHNY Administration Clonazepam 0.5 mg 09/21/17 09:00 09/21/17 08:13 Klonopin PO 0.5 mg Q48H JOHNY Administration Dorzolamide HCl 1 drops 09/20/17 21:00 09/21/17 08:07 Trusopt BOTH EYES 1 drops BID JOHNY Administration Famotidine 20 mg 09/20/17 21:00 09/21/17 08:07 Pepcid PO 20 mg BID JOHNY Administration Folic Acid 1 mg 09/21/17 12:00 09/21/17 08:06 Folic Acid PO 1 mg DAILY@1200 JOHNY Administration Furosemide 20 mg 09/21/17 09:00 09/21/17 08:07 Lasix PO 20 mg DAILY JOHNY Administration Gabapentin 300 mg 09/20/17 16:00 09/21/17 08:06 Neurontin PO 300 mg TID JOHNY Administration Lactobacillus Acidoph/Bulgaricus 1 each 09/21/17 09:00 Lactinex PO DAILY JOHNY Latanoprost 1 drops 09/20/17 21:00 09/20/17 20:34 Xalatan 0.005% BOTH EYES 1 drops HS JOHNY Administration Losartan Potassium 25 mg 09/21/17 09:00 09/21/17 08:06 Cozaar PO 25 mg QAM JOHNY Administration Nitroglycerin 1 inch 09/20/17 13:00 09/21/17 06:05 Nitro-Bid Oint TOPICAL 1 inch Q6HR JOHNY Administration Nitroglycerin 0.4 mg 09/20/17 10:52 Nitrostat SUBLINGUAL Q5M PRN Chest Pain Polyethylene Glycol 17 gm 09/20/17 15:51 Miralax PO DAILY PRN Constipation Psyllium Hydrophilic Mucilloid 6 gm 09/20/17 15:51 Metamucil PO DAILY PRN Constipation Rivaroxaban 20 mg 09/20/17 17:00 09/20/17 17:26 Xarelto PO 20 mg DAILY@1700 JOHNY Administration Sertraline HCl 100 mg 09/21/17 09:00 09/21/17 08:06 Zoloft PO 100 mg QAM JOHNY Administration Intake and Output 09/20/17 09/21/17 09/21/17 22:59 06:59 14:59 Output Total 1 Balance -1 Output: Urine 1 Other: # Voids 2 Weight 79 kg 79.9 kg 09/20/17 08:50 09/20/17 08:50 Assessment and Plan Assessment: Assessment #1 intermittent episodes of chest discomfort concerning for angina #2 paroxysmal atrial fibrillation #3 hypertension #4 dyslipidemia #5 diabetes type 2 Plan #1 the patient was ruled out for acute coronary event #2 I did recommend proceeding with heart catheterization in view of the anginal nature of her symptoms #3 I will obtain an echocardiogram was Doppler #4 follow-up with the patient. Thank you for allowing us participate in her care
[2017-09-21] MEDS: LACTOBACILLUS ACIDOPH & BULGAR 1 EACH PACKET PO SCH (12:49)
[2017-09-21] MEDS: RIVAROXABAN 20 MG TAB PO SCH (17:41)
[2017-09-21] MEDS: amLODIPine 10 MG TAB PO SCH (20:19)
[2017-09-21] MEDS: ATORVASTATIN 10 MG TAB PO SCH (20:19)
[2017-09-21] MEDS: LATANOPROST 0.005% OPHTH DROPS 2.5 ML BTL BOTH EYES SCH (20:20)
--- NOTE | 2017-09-22 07:11 | PN ---
PROGRESS NOTE DATE OF SERVICE: 09/21/17 PRESENT COMPLAINT: Chest pressure. INTERVAL HISTORY: The patient presented with unstable angina. I saw her earlier today. The patient had 2 or 3 more episodes of chest pain. Cardiology is planning a cardiac catheterization. She did tell me she had a cardiac cath 3 years ago at [facility]. She remembered. I did convey this to Dr. Rivera. Also told the nurse to get the results from [facility]. REVIEW OF SYSTEMS: Done for constitutional, cardiovascular, GI, pulmonary; relevant findings as above. CURRENT MEDICATIONS: Reviewed. PHYSICAL EXAMINATION: Temperature 99.2, pulse 76, respiratory 16, blood pressure 114/62, pulse ox 91% on room air. GENERAL APPEARANCE: Sitting up on bed, awake. EYES: Pupils equal. Conjunctivae normal. HEENT: External appearance of nose and ears normal. Oral cavity normal. NECK: JVD not raised. Mass not palpable. RESPIRATORY: Effort increased. Lungs, decreased breath sounds. Mild wheezing. CARDIOVASCULAR: First and second sounds, no edema. ABDOMEN: Soft, nontender. Liver and spleen not palpable. Abdominal wall hernia. PSYCHIATRY: Alert and oriented x3. Mood and affect normal. INVESTIGATIONS: Troponin x3 negative. ProBNP is 253. ASSESSMENT: 1. Unstable angina and cardiac sounding presentation. The patient has multiple risk factors. 2. MTHFR mutation with patient is chronically on Xarelto which is now being held. 3. Chronic obstructive pulmonary disease in a nonsmoker. 4. Chronic pulmonary embolism x3 chronically on Xarelto. 5. Gastroesophageal reflux disease. 6. Essential hypertension. 7. Hyperlipidemia. 8. Abdominal wall hernia chronic. 9. Chronic hypoxic respiratory failure, does use oxygen at night. 10.Paroxysmal atrial fibrillation currently in sinus rhythm. PLAN: Care was discussed with the patient. Awaiting a cardiac cath. I did discussed with Dr. Rivera. Will get results from the other hospital that is [facility]. Patient's 2D echocardiogram is pending. MMODL / IJN: [id number] /
[2017-09-22] MEDS: SYMBICORT 80-4.5 MCG INHALER INHALATION SCH ×2 (07:51→19:24)
[2017-09-22] MEDS ORDERED: REGADENOSON 0.4 MG/5 ML SYRINGE IV ONE (08:40)
[2017-09-22] MEDS ORDERED: AMINOPHYLLINE 500 MG/20 ML VIAL IV PRN (08:40)
[2017-09-22] MEDS: NITROGLYCERIN OINT 1 INCH/GM PACKET TOPICAL SCH ×3 (10:50→17:25)
--- NOTE | 2017-09-22 11:30 | NM ---
EXAMINATION TYPE: NM stress lexiscan cardiolite DATE OF EXAM: 09/22/2017 COMPARISON: NONE HISTORY: 77-year-old female with chest pain TECHNIQUE: After the intravenous administration of 11 mCi Tc 99m Sestamibi - Cardiolite resting SPEC T images acquired 45 minutes post injection. The patient received 0.4mg Lexiscan, 25.8 mCi Tc 99m Sestamibi - Stress images obtained [address] injection FINDINGS: Review of stress and rest SPECT images demonstrates fixed perfusion defect along the inferior wall as well as the mid anterior wall. Additional decreased perfusion along the mid to basal lateral wall. P olar maps show small amount of reversibility just adjacent within the mid lateral wall. Gated analysi s shows an estimated left ventricular ejection fraction of 63 %. TID is calculated at 0.76, within no rmal limits. IMPRESSION: 1. Findings show fixed defects, possible old infarcts along the inferior wall as well as the mid ante rior wall. 2. Additional possible old infarct mid to basal lateral wall. Polar maps suggest a small area of ed -infarct reversibility/ischemia at the mid lateral wall just adjacent. This is not as apparent on the gated images. Further EKG and clinical correlation recommended.
--- NOTE | 2017-09-22 12:31 | P.PN ---
Subjective Progress Note Date: 09/22/17 This is a pleasant 77-year-old female patient who does see a sheet rock taper out of the town presented to the hospital complaining of chest discomfort.The patient does have an extensive past medical history consistent of paroxysmal atrial fibrillation, chronic obstructive pulmonary disease, hypertension, dyslipidemia, and hypercoagulopathy on oral anticoagulation.She was in her usual state of health until about a week ago when she started experiencing intermittent episodes of chest discomfort patient described the discomfort as a pressure across the chest with radiation to the left arm and with associated shortness of breath. No dizziness or lightheadedness and no sweating. She clearly states that the discomfort is only with exertion and better with resting. The discomfort was severe enough to come to the emergency room yesterday where she was given nitroglycerin patch with significant improvement in her discomfort. She has been pain free since then.The EKG showed sinus rhythm without any significant ST or T-wave abnormalities. 3 sets of cardiac enzymes checked and came in to be unremarkable. The chest x-ray did not show any acute abnormalities. [facility] from [facility] were reviewed, patient did undergo cardiac catheterization 2 years ago which revealed normal coronary arteries. She denies any chest discomfort today. We will schedule her to undergo a Lexiscan stress test today.. Objective - Vital Signs Vital signs: Vital Signs Temp 97.9 F 09/22/17 09:05 Pulse 50 L 09/22/17 11:55 Resp 16 09/22/17 11:55 BP 152/77 09/22/17 11:55 Pulse Ox 94 L 09/22/17 11:55 Intake & Output 09/21/17 09/22/17 09/22/17 18:59 06:59 18:59 Intake Total 480 Balance 480 Weight 79.5 kg Intake: Oral 480 Other: # Voids 1 1 2 - Exam PHYSICAL EXAMINATION: GENERAL: 77-year-old female in no apparent distress at the time of my examination HEENT: Head is atraumatic, normocephalic. Pupils equal, round. Sclera anicteric. Conjunctiva are clear. Mucous membranes of the mouth are moist. Neck is supple. There is no elevated jugular venous pressure.] bruit is heard. HEART EXAMINATION: Heart S1S2 systolic murmur is heard. CHEST EXAMINATION: Lungs are clear to auscultation and precussion. No chest wall tenderness is noted on palpation or with deep breathing. ABDOMEN: Soft, nontender. Bowel sounds are heard. No organomegaly noted. EXTREMITIES: 2+ peripheral pulses with no evidence of peripheral edema and no calf tenderness noted. NEUROLOGIC patient is awake, alert and oriented ?-3. . - Labs CBC & Chem 7: 09/20/17 08:50 09/20/17 08:50 Assessment and Plan Plan: Assessment and plan #1 intermittent episodes of chest discomfort, concerning for angina. Cardiac catheterization performed at [facility] in 2015 was negative for any significant obstructive coronary artery disease. Patient scheduled today to undergo a Lexiscan stress test. #2 paroxysmal atrial fibrillation #3 hypertension #4 hyperlipidemia #5 diabetes Plan We will review the results of the patient's Lexiscan stress test, if negative the patient may be able to be discharged home from our perspective, if positive , patient may need repeat cardiac catheterization. Further recommendations will be based on these findings and the patient's clinical course. DNP note has been reviewed, I agree with a documented findings and plan of care. Patient was seen and examined.
[2017-09-22] MEDS: ASPIRIN 325 MG TAB PO SCH (12:34)
[2017-09-22] MEDS: DORZOLAMIDE HCL 2% DROPS 10 ML BTL BOTH EYES SCH ×2 (12:34→20:07)
[2017-09-22] MEDS: FUROSEMIDE 20 MG TAB PO SCH (12:35)
[2017-09-22] MEDS: BRIMONIDINE TARTRATE 0.2% DROPS 5 ML BTL BOTH EYES SCH ×2 (12:35→20:06)
[2017-09-22] MEDS: FAMOTIDINE 20 MG TAB PO SCH ×2 (12:35→20:07)
[2017-09-22] MEDS: SERTRALINE 100 MG TAB PO SCH (12:36)
[2017-09-22] MEDS: GABAPENTIN 300 MG CAP PO SCH ×3 (12:36→20:08)
[2017-09-22] MEDS: LACTOBACILLUS ACIDOPH & BULGAR 1 EACH PACKET PO SCH (12:36)
[2017-09-22] MEDS: FOLIC ACID 1 MG TAB PO SCH (12:36)
[2017-09-22] MEDS: LOSARTAN 25 MG TAB PO SCH (12:36)
--- NOTE | 2017-09-22 12:52 | P.STRESS ---
- Stress Test Note Stress Test Results/Findings: Exam Performed: NM stress lexiscan cardiolite Exam Date: 09/22/17 Reason for Exam: Chest Pain Height: 5 ft Weight: 79.5 kg Protocol: Yamile scan Stage: na Duration of Exercise: na Resting Heart Rate: 53 Resting Blood Pressure: 173/63 Maximum Achieved Heart Rate: 94 Maximum Achieved Blood Pressure: 181/50 85% PMHR: na 100% PMHR: na METS: na Technologist Comment: Stress Test Results/Findings: This is a 77-year-old female was admitted to the hospital with complaints of chest pain and shortness of breath. She has a history of hypertension, hypercholesterolemia and also of COPD. Stress data: Baseline EKG showed sinus rhythm with QRS DURATION WITH EARLY REPOLARIZATION CHANGES. Blood pressure at rest is 173/63 with pulse rate of 53. Chest and dose of Lexiscan was infused EKGs taken during and after the infusion did not reveal any changes to suggest ischemia. Final impression: #1. Negative Lexiscan stress test #2. Report on the nuclear images to be given by the radiologist.
[2017-09-22] MEDS: ACETAMINOPHEN TAB 500 MG TAB PO PRN (15:20)
[2017-09-22] MEDS ORDERED: ATORVASTATIN 80 MG TAB PO STA (16:38)
[2017-09-22] MEDS ORDERED: ASPIRIN 325 MG TAB PO STA (16:38)
[2017-09-22] MEDS ORDERED: ALPRAZolam 0.25 MG TAB PO PRN (16:38)
[2017-09-22] MEDS ORDERED: NITROGLYCERIN SL TABS 0.4 MG TAB SUBLINGUAL PRN (16:38)
[2017-09-22] MEDS ORDERED: ALPRAZolam 0.5 MG TAB PO PRN (16:38)
[2017-09-22] MEDS ORDERED: SODIUM CHLORIDE 0.9% 1,000 ML in EMPTY BAG 1 BAG IV ONE (16:38)
[2017-09-22] MEDS: RIVAROXABAN 20 MG TAB PO SCH ×2 (17:25→17:31)
[2017-09-22] MEDS: clonazePAM 0.5 MG TAB PO PRN (17:25)
--- NOTE | 2017-09-22 18:06 | ECHOF ---
Referral Reason:u/a MEASUREMENTS -------- HEIGHT: 152.4 cm WEIGHT: 79.4 kg BP: 139/76 RVIDd: 3.4 cm (< 3.3) IVSd: 1.3 cm (0.6 - 1.1) LVIDd: 4.3 cm (3.9 - 5.3) LVPWd: 1.3 cm (0.6 - 1.1) IVSs: 1.9 cm LVIDs: 2.5 cm LVPWs: 1.6 cm LA Diam: 4.9 cm (2.7 - 3.8) LAESV Index (A-L): 43.21 ml/m Ao Diam: 3.3 cm (2.0 - 3.7) AV Cusp: 2.3 cm (1.5 - 2.6) MV EXCURSION: 11.844 mm (> 18.000) MV EF SLOPE: 32 mm/s (70 - 150) EPSS: 0.6 cm MV E Etd: 1.00 m/s MV DecT: 201 ms MV A Ted: 0.81 m/s MV E/A Ratio: 1.23 AR PHT: 610 ms RAP: 5.00 mmHg RVSP: 37.89 mmHg FINDINGS -------- Sinus rhythm. This was a technically good study. The left ventricular size is normal. There is mild concentric left ventricular hypertrophy. Overa ll left ventricular systolic function is normal with, an EF between 60 - 65 %. The right ventricle is mildly enlarged. LA is severely dilated >40 ml/m2 The right atrium is normal in size. There is mild aortic valve sclerosis. There is moderate aortic regurgitation. Mild mitral annular calcification present. Mild mitral regurgitation is present. Mild tricuspid regurgitation present. There is mild pulmonary hypertension. The right ventricular systolic pressure, as measured by Doppler, is 37.89mmHg. Trace/mild (physiologic) pulmonic regurgitation. The aortic root size is normal. Normal inferior vena cava with normal inspiratory collapse consistent with estimated right atrial pre ssure of 5 mmHg. There is no pericardial effusion. CONCLUSIONS -------- 1. Sinus rhythm. 2. This was a technically good study. 3. The left ventricular size is normal. 4. There is mild concentric left ventricular hypertrophy. 5. Overall left ventricular systolic function is normal with, an EF between 60 - 65 %. 6. The right ventricle is mildly enlarged. 7. LA is severely dilated >40 ml/m2 8. The right atrium is normal in size. 9. There is mild aortic valve sclerosis. 10. There is moderate aortic regurgitation. 11. Mild mitral annular calcification present. 12. Mild mitral regurgitation is present. 13. Mild tricuspid regurgitation present. 14. There is mild pulmonary hypertension. 15. The right ventricular systolic pressure, as measured by Doppler, is 37.89mmHg. 16. Trace/mild (physiologic) pulmonic regurgitation. 17. The aortic root size is normal. 18. Normal inferior vena cava with normal inspiratory collapse consistent with estimated right atrial pressure of 5 mmHg. 19. There is no pericardial effusion. MEDICAL DEVICE SALES: Chelsie Perkins RDCS
[2017-09-22] MEDS ORDERED: HEPARIN SODIUM,PORCINE 5,000 UNIT/ML 1 ML VIAL IV PRN (18:53)
[2017-09-22] MEDS ORDERED: HEPARIN SODIUM,PORCINE 5,000 UNIT/ML 1 ML VIAL IV ONE (18:53)
--- NOTE | 2017-09-22 19:02 | PN ---
PROGRESS NOTE DATE OF SERVICE: 09/22/2017. PRESENTING COMPLAINT: Chest pressure. INTERVAL HISTORY: The patient presented with unstable angina; did undergo a stress test today that showed some wall motion abnormality. Cardiology is planning cardiac catheterization. Patient did have one more episode of chest pain. REVIEW OF SYSTEMS: Done for constitutional, cardiovascular, GI, pulmonary; relevant findings as above. CURRENT MEDICATIONS: Reviewed. PHYSICAL EXAMINATION: Temperature 98.3, pulse 62, respirations 16, blood pressure 145/70, pulse ox 94% on 2 L. GENERAL APPEARANCE: Sitting up. A bit anxious-appearing. EYES: Pupils equal. Conjunctivae normal. HEENT: External appearance of nose and ears normal. Oral cavity normal. NECK: JVD not raised. Mass not palpable. RESPIRATORY: Effort increased. LUNGS: Decreased breath sounds. Mild wheezing. CARDIOVASCULAR: First and second sounds normal. No edema. ABDOMEN: Soft, non-tender. Liver and spleen not palpable. PSYCHIATRY: Alert and oriented x3. Mood and affect normal. INVESTIGATIONS: Troponin x3 negative. Nuclear stress test showed some fixed defects and some wall motion abnormality. ASSESSMENT: 1. Unstable angina with a cardiac-sounding presentation, now showing some wall motion abnormality on the stress test, being scheduled for cardiac catheterization. 2. MTHFR mutation in a patient who is chronically on Xarelto. 3. Chronic obstructive pulmonary disease. 4. Chronic pulmonary embolism, for which patient has chronically been on Xarelto. PE x3. 5. Gastroesophageal reflux disease. 6. Essential hypertension. 7. Hyperlipidemia. 8. Abdominal wall hernia, chronic. 9. Chronic hypoxic respiratory failure; has oxygen at night. 10.Paroxysmal atrial fibrillation, currently in sinus rhythm. PLAN: Care was discussed with the patient. The patient's daughter is going to bring in her abdominal binder from home. Patient is due for a cardiac catheterization in the morning. The patient will be followed closely. MMODL / IJN: [id number] /
[2017-09-22 19:53] LABS: Basophils # (A) 0.1 k/uL (0-0.2); Basophils % (A) 1 %; Eosinophils # (A) 0.4 k/uL (0-0.7); Eosinophils % (A) 4 %; HCT 42.3 % (34.0-46.0); HGB 13.6 gm/dL (11.4-16.0); Lymphocytes # (A) 2.2 k/uL (1.0-4.8); Lymphocytes % (A) 24 %; MCHC 32.2 g/dL (31.0-37.0); MCV 93.3 fL (80.0-100.0); Mean Platelet Volume 7.9; Monocytes # (A) 0.4 k/uL (0-1.0); Monocytes % (A) 5 %; Neutrophils # (A) 6.2 k/uL (1.3-7.7); Neutrophils % (A) 67 %; Platelet Count 394 k/uL (150-450); RBC 4.53 m/uL (3.80-5.40); RDW 13.2 % (11.5-15.5); WBC 9.4 k/uL (3.8-10.6)
[2017-09-22] MEDS: HEPARIN SOD,PORK IN 0.45% NACL 25,000 UNIT in 0.45% NACL 1 500ML.BAG IV SCH (20:02)
[2017-09-22 20:05] LABS: INR 1.1 (<1.2); Partial Thromboplastin Time 24.3 sec (22.0-30.0); Prothrombin Time 10.8 sec (9.0-12.0)
[2017-09-22] MEDS: ATORVASTATIN 10 MG TAB PO SCH (20:06)
[2017-09-22] MEDS: amLODIPine 10 MG TAB PO SCH (20:06)
[2017-09-22] MEDS: LATANOPROST 0.005% OPHTH DROPS 2.5 ML BTL BOTH EYES SCH (20:07)
[2017-09-23] MEDS: NITROGLYCERIN OINT 1 INCH/GM PACKET TOPICAL SCH ×4 (00:44→17:47)
[2017-09-23 05:52] LABS: Glucose,Whole Blood 115 mg/dL (75-99)
[2017-09-23] MEDS: ASPIRIN 325 MG TAB PO SCH (05:52)
[2017-09-23] MEDS: LACTOBACILLUS ACIDOPH & BULGAR 1 EACH PACKET PO SCH (05:54)
[2017-09-23] MEDS: SERTRALINE 100 MG TAB PO SCH (05:55)
[2017-09-23] MEDS: LOSARTAN 25 MG TAB PO SCH (05:55)
[2017-09-23] MEDS: FAMOTIDINE 20 MG TAB PO SCH ×2 (05:55→21:06)
[2017-09-23] MEDS: GABAPENTIN 300 MG CAP PO SCH ×3 (05:56→21:06)
[2017-09-23] MEDS: clonazePAM 0.5 MG TAB PO PRN (05:58)
[2017-09-23 06:51] LABS: Basophils # (A) 0.1 k/uL (0-0.2); Basophils % (A) 1 %; Eosinophils # (A) 0.4 k/uL (0-0.7); Eosinophils % (A) 5 %; HCT 41.3 % (34.0-46.0); HGB 13.3 gm/dL (11.4-16.0); Hypochromasia Slight; Lymphocytes # (A) 2.4 k/uL (1.0-4.8); Lymphocytes % (A) 26 %; MCHC 32.1 g/dL (31.0-37.0); MCV 93.3 fL (80.0-100.0); Monocytes # (A) 0.4 k/uL (0-1.0); Monocytes % (A) 5 %; Neutrophils # (A) 5.6 k/uL (1.3-7.7); Neutrophils % (A) 62 %; Platelet Count 405 k/uL (150-450); RBC 4.43 m/uL (3.80-5.40); RDW 13.2 % (11.5-15.5)
[2017-09-23] MEDS: SYMBICORT 80-4.5 MCG INHALER INHALATION SCH ×2 (07:10→19:59)
[2017-09-23 07:11] LABS: Anion Gap 8 mmol/L; Blood Urea Nitrogen 15 mg/dL (7-17); Calcium 9.7 mg/dL (8.4-10.2); Carbon Dioxide 25 mmol/L (22-30); Chloride 107 mmol/L (98-107); Glucose 117 mg/dL (74-99); Potassium 4.4 mmol/L (3.5-5.1); Sodium 140 mmol/L (137-145)
[2017-09-23] MEDS ORDERED: MIDAZOLAM 2 MG/2 ML VIAL ONE (08:01)
[2017-09-23] MEDS ORDERED: SODIUM CHLORIDE 0.9% 500 ML IV ONE (08:11)
[2017-09-23] MEDS ORDERED: MIDAZOLAM 2 MG/2 ML VIAL IVP ONE ×2 (08:11)
[2017-09-23] MEDS ORDERED: LIDOCAINE 1% INJ 10MG/ML (20 ML MDV) SQ ONE (08:18)
[2017-09-23] MEDS: VERAPAMIL SYRINGE (5 MG/10 ML) INTRAARTER ONE ×2 (08:22→08:33)
[2017-09-23] MEDS ORDERED: HEPARIN SODIUM 1,000 UN/ML (10ML VL) IV ONE (08:23)
[2017-09-23] MEDS ORDERED: RX INFO: IV CONTRAST WAS GIVEN 1 EACH MISC MISCELLANE PRN (08:35)
[2017-09-23] MEDS ORDERED: IOPAMIDOL-370 125ML BTL INJ ONE (08:36)
[2017-09-23] MEDS ORDERED: SODIUM CHLORIDE 0.9% 1,000 ML IV SCH (08:45)
--- NOTE | 2017-09-23 09:06 | CC ---
CARDIAC CATHETERIZATION REPORT DATE OF SERVICE: 09/23/2017 PERFORMING PHYSICIAN: Stefan Rivera MD, net web developer. PROCEDURE PERFORMED: Selective right and left coronary angiogram. INDICATION: This is a pleasant 77-year-old female patient who presented to the hospital with chest discomfort concerning for angina. She does have hypertension and dyslipidemia and prior history of diabetes. She also does have hypercoagulopathy and she is on oral anticoagulation. She underwent a myocardial perfusion imaging stress test and that came in to be abnormal. Because of that, a heart catheterization was recommended. APPROACH: Right radial artery. COMPLICATION: None. LEVEL OF SEDATION: Moderate with sedation length of 18 minutes. PROCEDURE DESCRIPTION: After obtaining an informed consent, the patient was brought to dairy lab technician. The right radial artery was cannulated using micropuncture technique and a micropuncture wire passed easily then I placed a 6-Croat[place] sheath in the right radial artery. Subsequently I gave the patient 2 mg of verapamil IA and 8000 units of heparin IV. I did after that selective right and left coronary angiogram using JR4 and JL3.5 catheters. The procedure was completed without any complication. SELECTIVE CORONARY ANGIOGRAM: 1. The RCA is a large caliber vessel and it is a dominant vessel. The RCA is angiographically normal. It bifurcates distally into PDA and PLV branches and both are angiographically normal. 2. The left main is angiographically normal. It bifurcates into the circumflex and left anterior descending artery. 3. The left circumflex is a large caliber vessel. It is a nondominant vessel. The proximal circumflex is angiographically normal and gives rise into first OM branch which appeared to be angiographically normal. The mid circumflex is normal as well and gives rise into a second OM branch which seems to be angiographically normal. The circumflex continued after that as a small-caliber vessel in the AV groove. 4. The LAD: The proximal LAD is angiographically normal. The mid LAD is tortuous, but angiographically normal and gives rise into a diagonal branch which seems to be angiographically normal. The LAD distally is angiographically normal as well. CONCLUSION: 1. Normal coronary angiogram. 2. Tortuous right and left coronary systems. POSTPROCEDURE MANAGEMENT: 1. Medical treatment. 2. Blood pressure control. 3. Follow up with the patient. MMODL / IJN: [id number] /
[2017-09-23] MEDS: ACETAMINOPHEN TAB 500 MG TAB PO PRN ×2 (11:31→21:07)
[2017-09-23] MEDS: FOLIC ACID 1 MG TAB PO SCH (11:35)
[2017-09-23] MEDS: FUROSEMIDE 20 MG TAB PO SCH (11:36)
[2017-09-23] MEDS: BRIMONIDINE TARTRATE 0.2% DROPS 5 ML BTL BOTH EYES SCH ×2 (11:37→21:04)
[2017-09-23] MEDS: DORZOLAMIDE HCL 2% DROPS 10 ML BTL BOTH EYES SCH ×2 (11:38→21:04)
[2017-09-23] MEDS: RIVAROXABAN 20 MG TAB PO SCH (17:47)
[2017-09-23] MEDS: HEPARIN SOD,PORK IN 0.45% NACL 25,000 UNIT in 0.45% NACL 1 500ML.BAG IV SCH (17:47)
[2017-09-23] MEDS: LATANOPROST 0.005% OPHTH DROPS 2.5 ML BTL BOTH EYES SCH (21:04)
[2017-09-23] MEDS: ATORVASTATIN 10 MG TAB PO SCH (21:06)
[2017-09-23] MEDS: amLODIPine 10 MG TAB PO SCH (21:06)
--- NOTE | 2017-09-23 21:06 | PN ---
PROGRESS NOTE DATE OF SERVICE: 09/23/2017 PRESENTING COMPLAINT: Chest pressure. INTERVAL HISTORY: This patient presented with chest pain, did undergo a cardiac catheterization today that showed normal coronaries. The patient's daughter is present. There was concern if patient's symptoms are psychosomatic because of anxiety. Otherwise, patient is comfortable. REVIEW OF SYSTEMS: Done for constitutional, cardiovascular, GI, pulmonary, psych; relevant findings as above. CURRENT MEDICATIONS: Reviewed. PHYSICAL EXAMINATION: Afebrile. Pulse 53, respiration 16, blood pressure 116/59, pulse ox 95% on 2 L. GENERAL APPEARANCE: Sitting on the edge of bed, comfortable. EYES: Pupils equal. Conjunctivae normal. HEENT: External appearance of nose and ears normal. Oral cavity normal. NECK: JVD not raised. Mass not palpable. RESPIRATORY: Effort increased. LUNGS: Decreased breath sounds. Decreased wheezing. CARDIOVASCULAR: First and second sounds normal. No edema. ABDOMEN: Soft, non-tender. Liver and spleen not palpable. PSYCHIATRY: Alert and oriented x3. Mood and affect mild anxiety. INVESTIGATIONS: White count 9, hemoglobin 13.3, potassium 4.4. ASSESSMENT: 1. Anterior chest wall pain; could be psychosomatic. 2. Cardiac catheterization showing normal coronaries. 3. MTHFR mutation in a patient who is chronically on Xarelto. 4. Chronic obstructive pulmonary disease. 5. Chronic pulmonary embolism, for which patient is chronically on Xarelto. 6. Gastroesophageal reflux disease. 7. Essential hypertension. 8. Hyperlipidemia. 9. Abdominal wall hernia, chronic. 10.Chronic hypoxic respiratory failure; has oxygen at night. 11.Paroxysmal atrial fibrillation, currently in sinus rhythm. PLAN: Patient wants increased dose of Klonopin. I had a very lengthy discussion with the patient and her daughter about lifestyle management to help with stress, and that way it will help to cut back on medications, especially Klonopin. Will set up the patient as outpatient with Psychiatry. Total time spent was about 45 minutes today, with over 30 minutes of discussion. MMODL / IJN: [id number] /
[2017-09-24 06:10] LABS: Basophils # (A) 0.1 k/uL (0-0.2); Basophils % (A) 1 %; Eosinophils # (A) 0.5 k/uL (0-0.7); Eosinophils % (A) 6 %; HCT 44.9 % (34.0-46.0); HGB 13.6 gm/dL (11.4-16.0); Hypochromasia Moderate; Lymphocytes # (A) 2.3 k/uL (1.0-4.8); Lymphocytes % (A) 26 %; MCH 29.4 pg (25.0-35.0); MCHC 30.4 g/dL (31.0-37.0); MCV 96.9 fL (80.0-100.0); Mean Platelet Volume 7.9; Monocytes # (A) 0.5 k/uL (0-1.0); Monocytes % (A) 5 %; Neutrophils # (A) 5.4 k/uL (1.3-7.7); Neutrophils % (A) 61 %; Platelet Count 471 k/uL (150-450); RBC 4.64 m/uL (3.80-5.40); RDW 13.1 % (11.5-15.5); WBC 8.9 k/uL (3.8-10.6)
[2017-09-24] MEDS: FAMOTIDINE 20 MG TAB PO SCH (09:03)
[2017-09-24] MEDS: LACTOBACILLUS ACIDOPH & BULGAR 1 EACH PACKET PO SCH (09:03)
[2017-09-24] MEDS: GABAPENTIN 300 MG CAP PO SCH (09:03)
[2017-09-24] MEDS: LOSARTAN 25 MG TAB PO SCH (09:04)
[2017-09-24] MEDS: SERTRALINE 100 MG TAB PO SCH (09:04)
[2017-09-24] MEDS: FUROSEMIDE 20 MG TAB PO SCH (09:04)
--- NOTE | 2017-09-24 09:32 | P.PN ---
Subjective Progress Note Date: 09/24/17 Principal diagnosis: Unstable angina This is a pleasant 77-year-old female patient who does see a match up worker out of the town presented to the hospital complaining of chest discomfort. The patient does have an extensive past medical history consistent of paroxysmal atrial fibrillation, chronic obstructive pulmonary disease, hypertension, dyslipidemia, and hypercoagulopathy on oral anticoagulation. She was in her usual state of health until about a week ago when she started experiencing intermittent episodes of chest discomfort patient described the discomfort as a pressure across the chest with radiation to the left arm and with associated shortness of breath. No dizziness or lightheadedness and no sweating. She clearly states that the discomfort is only with exertion and better with resting. The discomfort was severe enough to come to the emergency room yesterday where she was given nitroglycerin patch with significant improvement in her discomfort. She has been pain free since then. The EKG showed sinus rhythm without any significant ST or T-wave abnormalities. 3 sets of cardiac enzymes checked and came in to be unremarkable. The chest x -ray did not show any acute abnormalities. The patient underwent a heart catheterization and that revealed normal coronaries. On follow-up with her today, she is asymptomatic from the cardiac standpoint. The patient can be discharged home later on today. Objective - Vital Signs Vital signs: Vital Signs Temp 97 F L 09/23/17 23:30 Pulse 56 L 09/24/17 04:00 Resp 17 09/24/17 04:00 BP 138/69 09/24/17 04:00 Pulse Ox 94 L 09/24/17 04:00 Intake & Output 09/23/17 09/24/17 09/24/17 18:59 06:59 18:59 Intake Total 990 10 240 Balance 990 10 240 Weight 79.9 kg Intake: IV 150 10 0.9 10 Oral 840 240 Other: Voiding Method Toilet Toilet # Voids 2 # Bowel Movements 0 - Constitutional General appearance: Present: no acute distress - Respiratory Respiratory: bilateral: CTA - Cardiovascular Rhythm: regular Heart sounds: normal: S1, S2 - Labs CBC & Chem 7: 09/24/17 05:41 09/23/17 06:12 Labs: Abnormal Lab Results - Last 24 Hours (Table) 09/24/17 Range/Units 05:41 MCHC 30.4 L (31.0-37.0) g/dL Plt Count 471 H (150-450) k/uL Assessment and Plan Assessment: Assessment #1 intermittent episodes of chest discomfort #2 paroxysmal atrial fibrillation #3 hypertension #4 dyslipidemia #5 diabetes type 2 Plan #1 the heart catheterization revealed normal coronaries. #2 the blood pressure and heart rate seems to be under good control #3 from the cardiac standpoint the patient can be discharged home.
[2017-09-24] MEDS: SYMBICORT 80-4.5 MCG INHALER INHALATION SCH (09:37)
[2017-09-24] MEDS: BRIMONIDINE TARTRATE 0.2% DROPS 5 ML BTL BOTH EYES SCH (10:09)
[2017-09-24] MEDS: DORZOLAMIDE HCL 2% DROPS 10 ML BTL BOTH EYES SCH (10:09)
[2017-09-24 10:27] VITALS: TEMP 97.7
[2017-09-24] MEDS: clonazePAM 0.5 MG TAB PO PRN (10:45)
[2017-09-24 10:52] VITALS: BP 145/66; PULSE 46; RESP 14
--- NOTE | 2017-09-24 20:46 | DS ---
DISCHARGE SUMMARY DATE OF ADMISSION: 09/21/17. DATE OF DISCHARGE: 09/24/17. FINAL DIAGNOSES: 1. Anterior chest wall pain could be psychosomatic. 2. MTHFR gene mutation. The patient is chronically on Xarelto. 3. Chronic obstructive pulmonary disease. 4. Chronic pulmonary embolism for which patient is chronically on Xarelto. 5. Gastroesophageal reflux disease. 6. Essential hypertension. 7. Hyperlipidemia. 8. Abdominal wall hernia, chronic. 9. Chronic hypoxic respiratory failure, has oxygen at night. 10.Paroxysmal atrial fibrillation currently in sinus rhythm. HOSPITAL COURSE: This patient with chest pain. Stress tests did show some findings. 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 Coronaries came back to be normal. The patient has slight anxiety because of social issues. The patient does take Klonopin p.r.n. The patient will be kept on a p.r.n. dosage working well for her. She should follow up with a psychiatrist as an outpatient. EXAM: Lungs are clear. Cardiovascular: First and second sounds normal. Care was discussed in detail with the patient. Questions were answered. DISCHARGE MEDICATIONS: 1. Lipitor 10 mg q.h.s. 2. Simbrinza 1%/0.2% 1 drop to both eyes b.i.d. 3. Breo Ellipta 100/25 1 puff daily. 4. Folic acid 1 mg p.o. daily. 5. Neurontin 300 mg p.o. t.i.d. 6. Cozaar 25 mg p.o. daily. 7. MiraLAX 17 g p.o. daily p.r.n. 8. Metamucil 1 dose daily p.r.n. 9. Zoloft 100 mg p.o. daily. 10.Travatan Z 0.004% 1 drop to both eyes q.h.s. 11.Norvasc 10 mg p.o. q.h.s. 12.Tylenol Extra Strength 1000 mg q.6h p.r.n. 13.Xarelto 20 mg p.o. daily. 14.Lasix 20 mg p.o. daily. 15.Probiotic 1 capsule p.o. daily. 16.Pepcid 20 mg p.o. b.i.d. 17.Klonopin 0.5 p.o. every 48 p.r.n. FOLLOWUP: Follow with [facility] in 1 week[address] Follow up with Dr. Raffaele Kamara of psychiatry in 1 week. Follow up with Dr. Rg Phipps 09/29/17. Discussion and discharge planning more than 35 minutes. MMODL / IJN: [id number] /
== END 2017-09-24 15:05 | disposition home or self-care (01) | DRG 287 ==
LOC: EC 08:24 → 6SEL 10:59 → OBSVTOIN 09-21 12:10
PROVIDERS: ADMIT Hospitalist; ATTEND Hospitalist
PROC: B2111ZZ Fluoroscopy of Multiple Coronary Arteries using Low Osmolar Contrast (ICD-10-PCS; principal; 2017-09-23 07:45)
PROC: 4A023N7 Measurement of Cardiac Sampling and Pressure, Left Heart, Percutaneous Approach (ICD-10-PCS; principal; 2017-09-23 07:45)
DX: R07.89 Other chest pain (principal); I27.82 Chronic pulmonary embolism; J96.11 Chronic respiratory failure with hypoxia; E72.12 Methylenetetrahydrofolate reductase deficiency; Q24.5 Malformation of coronary vessels; J44.9 Chronic obstructive pulmonary disease, unspecified; K21.9 Gastro-esophageal reflux disease without esophagitis; I10 Essential (primary) hypertension; I48.0 Paroxysmal atrial fibrillation; E78.5 Hyperlipidemia, unspecified; K43.9 Ventral hernia without obstruction or gangrene; E11.9 Type 2 diabetes mellitus without complications; F41.9 Anxiety disorder, unspecified; H40.9 Unspecified glaucoma; K44.9 Diaphragmatic hernia without obstruction or gangrene; Z79.01 Long term (current) use of anticoagulants; Z99.81 Dependence on supplemental oxygen; Z79.51 Long term (current) use of inhaled steroids; Z79.899 Other long term (current) drug therapy; Z85.3 Personal history of malignant neoplasm of breast; Z90.81 Acquired absence of spleen; Z90.710 Acquired absence of both cervix and uterus; Z90.11 Acquired absence of right breast and nipple; Z90.49 Acquired absence of other specified parts of digestive tract
CPT/HCPCS: 36415; 71046; 78452; 80048; 80053; 80061; 82550; 82553; 83735; 83880; 84484; 85025; 85379; 85610; 85730; 93005; 93017; 93306; 93454; 94640; 94760; 99285

== ENCOUNTER 2019-01-09 13:08 | Emergency (ER) | payer MEDICARE, BC ==
[2019-01-09 13:16] VITALS: TEMP 98.6
[2019-01-09] MEDS ORDERED: SODIUM CHLORIDE 0.9% 1,000 ML IV STA (13:36)
--- NOTE | 2019-01-09 13:43 | ED ---
Chest Pain HPI - General Chief Complaint: Chest Pain Stated Complaint: CHEST DISCOMFORT AND SOB Time Seen by Provider: 01/09/19 13:21 Source: patient, family, RN notes reviewed, old records reviewed Mode of arrival: wheelchair Limitations: no limitations - History of Present Illness Initial Comments: This is a 78-year-old female with a history of a diagnosis of Dr. Alicia reyna who he has had a cardiac cath as well as echocardiogram. Who does have complains the onset last night of some shortness of breath or diaphoresis and midsternal chest discomfort. She states it feels like pressure 4-5/10 severity she is a chronic cough no phlegm production no fevers or chills reported. She states she is very anxious she also noted that she ran out of her Alkermesonopin several days ago. He does have anxiety and believes this may be the cause. MD Complaint: chest pain, other - Related Data Home Medications Medication Instructions Recorded Confirmed Atorvastatin Calcium [Lipitor] 10 mg PO HS 01/28/17 01/09/19 Brinzolamide/Brimonidine Tart 1 drop BOTH EYES BID 01/28/17 01/09/19 [Simbrinza 1%-0.2% Eye Drops] Fluticasone/Vilanterol [Breo 1 puff INHALATION RT-DAILY 01/28/17 01/09/19 Ellipta 100-25 Mcg Inhaler] Gabapentin [Neurontin] 300 mg PO TID 01/28/17 01/09/19 Losartan Potassium [Cozaar] 25 mg PO QAM 01/28/17 01/09/19 Polyethylene Glycol 3350 [Miralax] 17 gm PO DAILY PRN 01/28/17 01/09/19 Psyllium Husk 100% [Metamucil 6 gm PO DAILY PRN 01/28/17 01/09/19 Packet] Sertraline HCl [Zoloft] 100 mg PO QAM 01/28/17 01/09/19 amLODIPine [Norvasc] 10 mg PO HS 01/28/17 01/09/19 Rivaroxaban [Xarelto] 20 mg PO DAILY@1700 09/08/17 01/09/19 Furosemide [Lasix] 20 mg PO BID 09/20/17 01/09/19 Famotidine [Pepcid] 20 mg PO DAILY 01/09/19 01/09/19 Methocarbamol [Robaxin] 500 mg PO BID 01/09/19 01/09/19 Metoprolol Succinate (ER) [Toprol 12.5 mg PO DAILY 01/09/19 01/09/19 Xl] clonazePAM [KlonoPIN] 0.5 mg PO HS 01/09/19 01/09/19 Previous Rx's Medication Instructions Recorded Acetaminophen [Tylenol Extra 1,000 mg PO Q6H PRN #28 tablet 09/08/17 Strength] clonazePAM [KlonoPIN] 0.5 mg PO HS 3 Days #3 tab 01/09/19 Allergies Allergy/AdvReac Type Severity Reaction Status Date / Time Penicillins Allergy Rash/Hives Verified 01/09/19 13:49 Sulfa (Sulfonamide Allergy Rash/Hives Verified 01/09/19 13:49 Antibiotics) Review of Systems ROS Statement: Those systems with pertinent positive or pertinent negative responses have been documented in the HPI. ROS Other: All systems not noted in ROS Statement are negative. EKG Findings - EKG Comments: EKG Findings:: 434/[address] T-wave configuration Past Medical History Past Medical History: Atrial Fibrillation, Cancer, COPD, Diabetes Mellitus, Deep Vein Thrombosis (DVT), GERD/Reflux, Hyperlipidemia, Hypertension, Pulmonary Embolus (PE) Additional Past Medical History / Comment(s): "stomach pain r/t hernia being bulged out"-currently wearing binder,currently having constipation unable to have bowel movement without laxative,hiatal hernia,uses O2 2L NC @ HS, fall hx, glaucoma fabrizio eyes,MTHFR clotting disorder, hemolyctic anemia,rt breast CA-no rad or chemo,PE x3 episodes last 2015 History of Any Multi-Drug Resistant Organisms: None Reported Past Surgical History: Appendectomy, Hysterectomy Additional Past Surgical History / Comment(s): uriah filter,rt mastectomy,spleenectomyn,hernia repair x 2,bowel resection r/t diverticulitis,pericardial window Past Anesthesia/Blood Transfusion Reactions: No Reported Reaction Past Psychological History: Depression Smoking Status: Never smoker Past Alcohol Use History: None Reported Past Drug Use History: None Reported - Past Family History Mother Family Medical History: No Reported History Father Family Medical History: No Reported History General Exam - General Exam Comments Initial Comments: This is a well-developed well-nourished awake alert oriented 3 female Limitations: no limitations General appearance: alert, anxious Head exam: Present: atraumatic, normocephalic, normal inspection Eye exam: Present: normal appearance, PERRL, EOMI. Absent: scleral icterus, conjunctival injection, periorbital swelling ENT exam: Present: normal exam, mucous membranes moist Neck exam: Present: normal inspection. Absent: tenderness, meningismus, ly mphadenopathy Respiratory exam: Present: normal lung sounds bilaterally. Absent: respiratory distress, wheezes, rales, rhonchi, stridor Cardiovascular Exam: Present: normal rhythm, bradycardia, normal heart sounds. Absent: systolic murmur, diastolic murmur, rubs, gallop, clicks GI/Abdominal exam: Present: soft, normal bowel sounds. Absent: distended, tenderness, guarding, rebound, rigid Extremities exam: Present: normal inspection, full ROM, normal capillary refill. Absent: tenderness, pedal edema, joint swelling, calf tenderness Back exam: Present: normal inspection Neurological exam: Present: alert, oriented X3, CN II-XII intact Psychiatric exam: Present: normal affect, normal mood Skin exam: Present: warm, dry, intact, normal color. Absent: rash Course Vital Signs 01/09/19 01/09/19 01/09/19 13:14 14:00 14:02 Temperature 98.6 F Pulse Rate 58 L 49 L Respiratory 16 18 20 Rate Blood Pressure 146/68 168/77 O2 Sat by Pulse 96 97 Oximetry 01/09/19 15:00 Temperature Pulse Rate 48 L Respiratory 18 Rate Blood Pressure 156/83 O2 Sat by Pulse 97 Oximetry - Reevaluation(s) Reevaluation #1: 01/09/19 15:58 She has had no further chest pain while in emergency department. Chest Pain MDM - MDM I did review the imaging and report no acute findings. The presentation consistent with some withdrawal from her Klonopin with anxiety and chest wall pain. She is scheduled see her doctor in the very near future I will write for some Klonopin for her. When 5 mg at bedtime when necessary Disposition Clinical Impression: Chest wall syndrome, Anxiety Disposition: HOME SELF-CARE Condition: Good Instructions (If sedation given, give patient instructions): Costochondritis (ED), Anxiety (ED) Prescriptions: clonazePAM [KlonoPIN] 0.5 mg PO HS 3 Days #3 tab Is patient prescribed a controlled substance at d/c from ED?: Yes When asked, does pt state using other controlled substances?: Yes If prescribed controlled substance>3 days was MAPS reviewed?: Prescribed <3 Days Referrals: Rg Barba DO [Primary Care Provider] - 1-2 days
[2019-01-09 13:58] LABS: Basophils # (A) 0.1 k/uL (0-0.2); Basophils % (A) 1 %; Eosinophils # (A) 0.2 k/uL (0-0.7); Eosinophils % (A) 2 %; HCT 42.4 % (34.0-46.0); HGB 13.5 gm/dL (11.4-16.0); Hypochromasia Slight; Lymphocytes # (A) 2.3 k/uL (1.0-4.8); Lymphocytes % (A) 24 %; MCH 29.6 pg (25.0-35.0); MCHC 31.9 g/dL (31.0-37.0); MCV 92.5 fL (80.0-100.0); Mean Platelet Volume 7.4; Monocytes # (A) 0.4 k/uL (0-1.0); Monocytes % (A) 4 %; Neutrophils # (A) 6.4 k/uL (1.3-7.7); Neutrophils % (A) 68 %; Platelet Count 327 k/uL (150-450); RBC 4.58 m/uL (3.80-5.40); RDW 13.3 % (11.5-15.5); WBC 9.4 k/uL (3.8-10.6)
[2019-01-09 14:10] LABS: ALT 22 U/L (9-52); AST 25 U/L (14-36); African American GFR (CKD) >90 (>60 ml/min/1.73 sqM); Albumin 3.9 g/dL (3.5-5.0); Alkaline Phosphatase 86 U/L (38-126); Anion Gap 7 mmol/L; Blood Urea Nitrogen 14 mg/dL (7-17); Calcium 9.9 mg/dL (8.4-10.2); Carbon Dioxide 30 mmol/L (22-30); Chloride 104 mmol/L (98-107); Creatine Kinase 36 U/L (30-135); Glucose 124 mg/dL (74-99); Non-African American GFR(CKD) 86 (>60 ml/min/1.73 sqM); Potassium 4.3 mmol/L (3.5-5.1); Sodium 141 mmol/L (137-145); Total Bilirubin 0.7 mg/dL (0.2-1.3)
--- NOTE | 2019-01-09 14:15 | XR ---
EXAMINATION TYPE: XR chest 2V DATE OF EXAM: 01/09/2019 COMPARISON: 09/20/2017 HISTORY: Chest pain TECHNIQUE: Frontal and lateral views of the chest are obtained. FINDINGS: There is elevated left and right diaphragm with poor inspiration. There is no heart failur e. Thoracic aorta is atheromatous. There are chest leads. IMPRESSION: Poor inspiration with basilar atelectasis unchanged.
[2019-01-09 14:48] LABS: D-Dimer 0.18 mg/L FEU (<0.60); INR 1.1 (<1.2); Partial Thromboplastin Time 26.5 sec (22.0-30.0); Prothrombin Time 11.7 sec (9.0-12.0)
[2019-01-09 15:05] VITALS: RESP 18
[2019-01-09] MEDS ORDERED: LORazepam 1 MG TAB PO STA (16:08)
[2019-01-09 16:18] VITALS: BP 158/67; PULSE 50
== END 2019-01-09 16:35 | disposition home or self-care (01) ==
LOC: EC 13:08
DX: F41.9 Anxiety disorder, unspecified (principal); R07.1 Chest pain on breathing; I48.91 Unspecified atrial fibrillation; J44.9 Chronic obstructive pulmonary disease, unspecified; E11.9 Type 2 diabetes mellitus without complications; E78.5 Hyperlipidemia, unspecified; I11.9 Hypertensive heart disease without heart failure; I42.9 Cardiomyopathy, unspecified; K21.9 Gastro-esophageal reflux disease without esophagitis; F32.9 Major depressive disorder, single episode, unspecified; Z79.01 Long term (current) use of anticoagulants; Z79.899 Other long term (current) drug therapy; Z79.51 Long term (current) use of inhaled steroids; Z88.0 Allergy status to penicillin; Z88.2 Allergy status to sulfonamides; Z86.711 Personal history of pulmonary embolism; Z86.718 Personal history of other venous thrombosis and embolism; Z85.3 Personal history of malignant neoplasm of breast; Z90.11 Acquired absence of right breast and nipple
CPT/HCPCS: 36415; 71046; 80053; 82550; 83690; 83735; 83880; 84484; 85025; 85379; 85610; 85730; 93005; 96360; 96361; 99285

== ENCOUNTER 2019-01-15 08:34 | Inpatient (IN) | payer MEDICARE, BC ==
[2019-01-15] MEDS ORDERED: ASPIRIN 81 MG PO STA (08:59)
[2019-01-15] MEDS ORDERED: NITROGLYCERIN SL TABS 0.4 MG TAB SUBLINGUAL STA ×3 (08:59)
--- NOTE | 2019-01-15 09:05 | ED ---
General Adult HPI - General Chief complaint: Chest Pain Stated complaint: chest pain Time Seen by Provider: 01/15/19 08:48 Source: patient, RN notes reviewed Mode of arrival: wheelchair Limitations: no limitations - History of Present Illness Initial comments: Patient is a pleasant 78-year-old female presenting to the emergency Department with complaints of chest discomfort. Onset of symptoms was a week ago. Symptoms have been waxing and waning. Discomfort is currently 5/10. No radiation. Discomfort feels like soreness. Patient does have cough that is nonproductive. Patient does feel somewhat short of breath. Patient has some mild nausea, no vomiting. No diaphoresis. Patient was seen in the emergency department last week however cough is developed since that time. No fevers. Chest discomfort does worsen with exertion - Related Data Home Medications Medication Instructions Recorded Confirmed Atorvastatin Calcium [Lipitor] 10 mg PO HS 01/28/17 01/15/19 Gabapentin [Neurontin] 300 mg PO TID 01/28/17 01/15/19 Sertraline HCl [Zoloft] 150 mg PO DAILY 01/28/17 01/15/19 amLODIPine [Norvasc] 10 mg PO HS 01/28/17 01/15/19 Rivaroxaban [Xarelto] 20 mg PO DAILY@1700 09/08/17 01/15/19 Furosemide [Lasix] 20 mg PO BID 09/20/17 01/15/19 Methocarbamol [Robaxin] 500 mg PO BID 01/09/19 01/15/19 Metoprolol Succinate (ER) [Toprol 12.5 mg PO DAILY 01/09/19 01/15/19 Xl] Travoprost [Travatan Z 0.004%] 1 drop BOTH EYES HS 01/15/19 01/15/19 clonazePAM [KlonoPIN] 0.5 mg PO HS 01/15/19 01/15/19 Allergies Allergy/AdvReac Type Severity Reaction Status Date / Time Penicillins Allergy Rash/Hives Verified 01/15/19 10:20 Review of Systems ROS Statement: Those systems with pertinent positive or pertinent negative responses have been documented in the HPI. ROS Other: All systems not noted in ROS Statement are negative. Constitutional: Denies: fever, chills Eyes: Denies: eye pain ENT: Denies: ear pain Respiratory: Reports: cough, dyspnea Cardiovascular: Reports: chest pain Endocrine: Reports: fatigue Gastrointestinal: Denies: abdominal pain Genitourinary: Denies: dysuria Skin: Denies: as per HPI, rash Neurological: Denies: weakness Past Medical History Past Medical History: Atrial Fibrillation, Cancer, COPD, Diabetes Mellitus, Deep Vein Thrombosis (DVT), GERD/Reflux, Hyperlipidemia, Hypertension, Pulmonary Embolus (PE) Additional Past Medical History / Comment(s): "stomach pain r/t hernia being bulged out"-currently wearing binder,currently having constipation unable to have bowel movement without laxative,hiatal hernia,uses O2 2L NC @ HS, fall hx, glaucoma fabrizio eyes,MTHFR clotting disorder, hemolyctic anemia,rt breast CA-no rad or chemo,PE x3 episodes last 2015 History of Any Multi-Drug Resistant Organisms: None Reported Past Surgical History: Appendectomy, Hysterectomy Additional Past Surgical History / Comment(s): uriah filter,rt mastectomy,spleenectomyn,hernia repair x 2,bowel resection r/t diverticulitis,pericardial window Past Anesthesia/Blood Transfusion Reactions: No Reported Reaction Past Psychological History: Depression Smoking Status: Never smoker Past Alcohol Use History: None Reported Past Drug Use History: None Reported - Past Family History Mother Family Medical History: No Reported History Father Family Medical History: No Reported History General Exam Limitations: no limitations General appearance: alert, in no apparent distress Head exam: Present: normocephalic Eye exam: Present: normal appearance, PERRL ENT exam: Present: normal oropharynx Neck exam: Present: normal inspection Respiratory exam: Present: normal lung sounds bilaterally. Absent: chest wall tenderness Cardiovascular Exam: Present: regular rate, normal rhythm Expanded Peripheral pulses: 2+: Radial (R), Radial (L), Posterior Tibialis (R), Posterior Tibialis (L) GI/Abdominal exam: Present: soft. Absent: tenderness Extremities exam: Present: normal inspection. Absent: pedal edema, calf tenderness Neurological exam: Present: alert Psychiatric exam: Present: normal affect, normal mood Skin exam: Present: normal color Course Vital Signs 01/15/19 01/15/19 01/15/19 08:36 09:22 09:27 Temperature 98.4 F Pulse Rate 20 L 53 L Respiratory 56 H 18 22 Rate Blood Pressure 144/65 156/91 O2 Sat by Pulse 98 95 Oximetry 01/15/19 09:28 Temperature Pulse Rate 61 Respiratory 18 Rate Blood Pressure 141/70 O2 Sat by Pulse 94 L Oximetry EKG Findings - EKG Comments: EKG Findings:: Sinus bradycardia 52. WA 154. QRS 90. QT 434. QTC 43. Normal axis. LVH with repolarization changes. Reviewed previous EKG from 01/09/19 Medical Decision Making - Medical Decision Making Patient reevaluated and resting comfortably in bed. Patient symptom-free at this point. Patient and family updated on results and plan. Case was discussed in detail with Dr. Ashraf, who will admit coming for Dr. Phipps. - Lab Data Result diagrams: 01/15/19 09:05 01/15/19 09:05 Lab Results 01/15/19 01/15/19 01/15/19 Range/Units 09:05 09:05 09:05 WBC 8.4 (3.8-10.6) k/uL RBC 4.87 (3.80-5.40) m/uL Hgb 14.4 (11.4-16.0) gm/dL Hct 45.3 (34.0-46.0) % MCV 93.0 (80.0-100.0) fL MCH 29.6 (25.0-35.0) pg MCHC 31.8 (31.0-37.0) g/dL RDW 13.2 (11.5-15.5) % Plt Count 319 (150-450) k/uL Neutrophils % (Manual) 59 % Lymphocytes % (Manual) 28 % Monocytes % (Manual) 12 % Eosinophils % (Manual) 1 % Neutrophils # (Manual) 4.96 (1.3-7.7) k/uL Lymphocytes # (Manual) 2.35 (1.0-4.8) k/uL Monocytes # (Manual) 1.01 H (0-1.0) k/uL Eosinophils # (Manual) 0.08 (0-0.7) k/uL Nucleated RBCs 0 (0-0) /100 WBC Manual Slide Review Performed Hypochromasia Slight Poikilocytosis (manual Present Anisocytosis (manual) Present Target Cells Present Franco-Cliffside Bodies Present PT 11.3 (9.0-12.0) sec INR 1.1 (<1.2) APTT 26.6 (22.0-30.0) sec D-Dimer 0.22 (<0.60) mg/L FEU Sodium (137-145) mmol/L Potassium (3.5-5.1) mmol/L Chloride (98-107) mmol/L Carbon Dioxide (22-30) mmol/L Anion Gap mmol/L BUN (7-17) mg/dL Creatinine (0.52-1.04) mg/dL Est GFR (CKD-EPI)AfAm (>60 ml/min/1.73 sqM) Est GFR (CKD-EPI)NonAf (>60 ml/min/1.73 sqM) Glucose (74-99) mg/dL Calcium (8.4-10.2) mg/dL Magnesium (1.6-2.3) mg/dL Total Bilirubin (0.2-1.3) mg/dL AST (14-36) U/L ALT (9-52) U/L Alkaline Phosphatase (38-126) U/L Troponin I (0.000-0.034) ng/mL NT-Pro-B Natriuret Pep 136 pg/mL Total Protein (6.3-8.2) g/dL Albumin (3.5-5.0) g/dL 01/15/19 01/15/19 Range/Units 09:05 09:05 WBC (3.8-10.6) k/uL RBC (3.80-5.40) m/uL Hgb (11.4-16.0) gm/dL Hct (34.0-46.0) % MCV (80.0-100.0) fL MCH (25.0-35.0) pg MCHC (31.0-37.0) g/dL RDW (11.5-15.5) % Plt Count (150-450) k/uL Neutrophils % (Manual) % Lymphocytes % (Manual) % Monocytes % (Manual) % Eosinophils % (Manual) % Neutrophils # (Manual) (1.3-7.7) k/uL Lymphocytes # (Manual) (1.0-4.8) k/uL Monocytes # (Manual) (0-1.0) k/uL Eosinophils # (Manual) (0-0.7) k/uL Nucleated RBCs (0-0) /100 WBC Manual Slide Review Hypochromasia Poikilocytosis (manual Anisocytosis (manual) Target Cells Franco-Cliffside Bodies PT (9.0-12.0) sec INR (<1.2) APTT (22.0-30.0) sec D-Dimer (<0.60) mg/L FEU Sodium 140 (137-145) mmol/L Potassium 4.2 (3.5-5.1) mmol/L Chloride 104 (98-107) mmol/L Carbon Dioxide 30 (22-30) mmol/L Anion Gap 6 mmol/L BUN 15 (7-17) mg/dL Creatinine 0.67 (0.52-1.04) mg/dL Est GFR (CKD-EPI)AfAm >90 (>60 ml/min/1.73 sqM) Est GFR (CKD-EPI)NonAf 85 (>60 ml/min/1.73 sqM) Glucose 138 H (74-99) mg/dL Calcium 9.9 (8.4-10.2) mg/dL Magnesium 2.0 (1.6-2.3) mg/dL Total Bilirubin 0.8 (0.2-1.3) mg/dL AST 28 (14-36) U/L ALT 23 (9-52) U/L Alkaline Phosphatase 91 (38-126) U/L Troponin I <0.012 (0.000-0.034) ng/mL NT-Pro-B Natriuret Pep pg/mL Total Protein 7.0 (6.3-8.2) g/dL Albumin 3.9 (3.5-5.0) g/dL - Radiology Data Radiology results: image reviewed (Chest x-ray shows no acute process) Disposition Clinical Impression: Chest pain, Dyspnea Disposition: ADMITTED IP TO THIS HOSP Is patient prescribed a controlled substance at d/c from ED?: No Referrals: Rg Barba DO [Primary Care Provider] - 1-2 days Decision Time: 10:39
[2019-01-15 09:24] LABS: HCT 45.3 % (34.0-46.0); HGB 14.4 gm/dL (11.4-16.0); Hypochromasia Slight; MCH 29.6 pg (25.0-35.0); MCHC 31.8 g/dL (31.0-37.0); Mean Platelet Volume 7.4; Platelet Count 319 k/uL (150-450); RBC 4.87 m/uL (3.80-5.40); RDW 13.2 % (11.5-15.5); WBC 8.4 k/uL (3.8-10.6)
--- NOTE | 2019-01-15 09:24 | XR ---
EXAMINATION TYPE: XR chest 2V DATE OF EXAM: 01/15/2019 COMPARISON: Chest x-ray 6 days ago. HISTORY: Intermittent chest pain for one week TECHNIQUE: Frontal and lateral views of the chest are obtained. FINDINGS: Overlying EKG leads. There is chronic parenchymal change with bibasilar linear scarring an d/or atelectasis. There is no suspicious focal air space opacity, pleural effusion, or pneumothorax s een. The cardiac silhouette size is within normal limits with atherosclerotic aorta. The osseous s tructures are intact. IMPRESSION: Chronic changes without acute pulmonary process.
[2019-01-15 09:28] LABS: ALT 23 U/L (9-52); AST 28 U/L (14-36); African American GFR (CKD) >90 (>60 ml/min/1.73 sqM); Albumin 3.9 g/dL (3.5-5.0); Alkaline Phosphatase 91 U/L (38-126); Anion Gap 6 mmol/L; Blood Urea Nitrogen 15 mg/dL (7-17); Calcium 9.9 mg/dL (8.4-10.2); Carbon Dioxide 30 mmol/L (22-30); Chloride 104 mmol/L (98-107); Glucose 138 mg/dL (74-99); Potassium 4.2 mmol/L (3.5-5.1); Sodium 140 mmol/L (137-145); Total Bilirubin 0.8 mg/dL (0.2-1.3)
[2019-01-15 09:40] LABS: D-Dimer 0.22 mg/L FEU (<0.60); INR 1.1 (<1.2); Partial Thromboplastin Time 26.6 sec (22.0-30.0); Prothrombin Time 11.3 sec (9.0-12.0)
[2019-01-15 10:06] LABS: Eosinophils # (M) 0.08 k/uL (0-0.7); Lymphocytes # (M) 2.35 k/uL (1.0-4.8); Monocytes # (M) 1.01 k/uL (0-1.0); Neutrophils % (M) 59 %; Nucleated Red Blood Cells 0 /100 WBC (0-0); Total Cells Counted 100
[2019-01-15 10:07] LABS: Howell-Jolly Bodies Present
[2019-01-15 10:08] LABS: Anisocytosis (M) Present; Poikilocytosis (M) Present; Target Cells Present
[2019-01-15] MEDS ORDERED: NITROGLYCERIN SL TABS 0.4 MG TAB SUBLINGUAL PRN (10:40)
[2019-01-15] MEDS ORDERED: IPRATROPIUM-ALBUTEROL 3 ML NEB INHALATION PRN (10:40)
[2019-01-15 12:17] LABS: Glucose,Whole Blood 108 mg/dL (75-99)
--- NOTE | 2019-01-15 12:39 | P.CNPUL ---
History of Present Illness Consult date: 01/15/19 Requesting physician: Rhett Ashraf Reason for consult: dyspnea Chief complaint: Shortness of breath, chest pain History of present illness: This is a very pleasant 78-year-old female patient who follows with Dr. Phipps as her primary care physician. She has a history of atrial fibrillation, diabetes mellitus, hypertension, hyperlipidemia, right-sided breast cancer no chemoradiation, history of splenectomy, bowel resection. She's had a Ross filter placed. She has a history of multiple pulmonary emboli and DVT in the past. 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 She has been on home oxygen previously just at night however she sustained a fall back in August down the escalator at a casino in [place] and was in [facility]. She did have a computed tomography scan of the chest that was reported as negative. No rib fractures. 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 She follows with Dr. Rivera and in October 2018 had a follow-up echocardiogram with improvement. She was here last week in the emergency room with increasing shortness of breath and anxiety. She had been without her Klonopin which was resumed and she was discharged home. Based on her ongoing shortness of breath she was scheduled to see Dr. Ayers as a new patient in our office on 01/18/2019. She represented to the emergency room here again today with chest pain and shortness of breath. Chest x-ray reveals chronic changes without any acute pulmonary process. D-dimer 0.22. White count 8.4. Hemoglobin 14.4. Sodium 140. Potassium 4.2. Creatinine 0.67. Troponin nega tive. ProBNP 136. Echocardiogram is pending. EKG reveals no acute ST or T wave abnormalities. She is seen today in consultation on the observation unit. She is currently resting in bed. Awake and alert in no acute distress. Her shortness of breath and chest discomfort have been ongoing. She has been told she has chronic bronchitis and is on Breo and Ventolin. She has a nebulizer with nebulized treatments which she did utilize twice yesterday without much improvement. She is currently afebrile. Maintaining good O2 saturations in the mid 90s on 2 L/m per nasal cannula. Hemodynamically stable. Review of Systems REVIEW OF SYSTEMS: CONSTITUTIONAL: Denies any recent significant weight loss or weight gain. EYES: Denies change in vision. EARS, NOSE, MOUTH, THROAT: Denies headaches, denies sore throat. CARDIOVASCULAR: Positive for chest pain, no palpitations or syncopal episodes. RESPIRATORY: Positive for shortness of breath, cough, congestion no hemoptysis. GASTROINTESTINAL: Denies change in appetite, denies abdominal pain GENITOURINARY: Denies hematuria, denies infections. MUSKULOSKELETAL: Denies pain, denies swelling. INTEGUMENTARY: Denies rash, denies eczema. NEUROLOGICAL: Denies recent memory loss, no recent seizure activity. PSYCHIATRIC: Denies anxiety, denies depression. HEMATOLOGIC/LYMPHATIC: Denies anemia, denies enlarged lymph nodes. 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 History of Any Multi-Drug Resistant Organisms: None Reported Past Surgical History: Appendectomy, Breast Surgery, Hysterectomy Additional Past Surgical History / Comment(s): [place] filter, pericardial window, cardiac caths, R mastectomy, colonoscopies/benign polypectomies, bowel resection for diverticulitis, spleenectomy d/t hemolytic anemia, abdominal hernia surgeries/mesh. Past Anesthesia/Blood Transfusion Reactions: No Reported Reaction Smoking Status: Never smoker - Past Family History Mother Family Medical History: Coronary Artery Disease (CAD), Myocardial Infarction (VA) Additional Family Medical History / Comment(s): Mother had rheumatic fever. She had her first VA in her late 30s and of a VA at the age of 54 yrs. Father History Unknown: Yes Family Medical History: No Reported History Additional Family Medical History / Comment(s): Father in a traumatic accident when pt was 6 yrs old. Medications and Allergies Home Medications Medication Instructions Recorded Confirmed Type Atorvastatin Calcium [Lipitor] 10 mg PO HS 01/28/17 01/15/19 History Gabapentin [Neurontin] 300 mg PO TID 01/28/17 01/15/19 History Sertraline HCl [Zoloft] 150 mg PO DAILY 01/28/17 01/15/19 History amLODIPine [Norvasc] 10 mg PO HS 01/28/17 01/15/19 History Rivaroxaban [Xarelto] 20 mg PO DAILY@1700 09/08/17 01/15/19 History Furosemide [Lasix] 20 mg PO BID 09/20/17 01/15/19 History Methocarbamol [Robaxin] 500 mg PO BID 01/09/19 01/15/19 History Metoprolol Succinate (ER) [Toprol 12.5 mg PO DAILY 01/09/19 01/15/19 History Xl] Travoprost [Travatan Z 0.004%] 1 drop BOTH EYES HS 01/15/19 01/15/19 History clonazePAM [KlonoPIN] 0.5 mg PO HS 01/15/19 01/15/19 History Allergies Allergy/AdvReac Type Severity Reaction Status Date / Time Penicillins Allergy Rash/Hives Verified 01/15/19 10:20 Physical Exam Vitals: Vital Signs Temp Pulse Resp BP Pulse Ox 01/15/19 11:30 53 L 13 134/82 95 01/15/19 11:00 48 L 12 120/80 95 01/15/19 10:30 52 L 11 L 100/71 01/15/19 10:00 52 L 14 139/72 95 01/15/19 09:28 61 18 141/70 94 L 01/15/19 09:27 22 01/15/19 09:22 53 L 18 156/91 95 01/15/19 08:47 95 01/15/19 08:36 98.4 F 20 L 56 H 144/65 98 Intake and Output 01/14/19 01/15/19 01/15/19 22:59 06:59 14:59 Other: Weight 83.915 kg GENERAL EXAM: Alert, obese pleasant 78-year-old female patient, on 2 L nasal cannula, comfortable in no apparent distress. HEAD: Normocephalic. EYES: Normal reaction of pupils, equal size. NOSE: Clear with pink turbinates. THROAT: No erythema or exudates. NECK: No masses, no JVD. CHEST: No chest wall deformity. LUNGS: Equal air entry with no crackles, wheeze, rhonchi or dullness. CVS: S1 and S2 normal with no audible murmur, regular rhythm. ABDOMEN: No hepatomegaly, normal bowel sounds, no guarding or rigidity. SPINE: No scoliosis or deformity SKIN: No rashes CENTRAL NERVOUS SYSTEM: No focal deficits, tone is normal in all 4 extremities. EXTREMITIES: There is no peripheral edema. No clubbing, no cyanosis. Peripheral pulses are intact. Results - Laboratory Findings CBC and BMP: 01/15/19 09:05 01/15/19 09:05 PT/INR, D-dimer PT 11.3 sec (9.0-12.0) 01/15/19 09:05 INR 1.1 (<1.2) 01/15/19 09:05 D-Dimer 0.22 mg/L FEU (<0.60) 01/15/19 09:05 Abnormal lab findings: Abnormal Labs 01/15/19 01/15/19 09:05 09:05 Monocytes # (Manual) 1.01 H Glucose 138 H - Diagnostic Findings Chest x-ray: image reviewed Assessment and Plan Assessment: Impression: #1 Atypical chest discomfort of unclear etiology. No acute coronary syndrome. #2 Dyspnea of unclear etiology. The patient does have home oxygen and is on Breo and Ventolin HFA in the outpatient setting and told she has chronic bronchitis. She is a lifelong nonsmoker. #3 History of multiple pulmonary emboli/DVT with MT HFR mutation, previous G reenfield filter placement and currently on Xarelto. D-dimer negative. #4 History of atrial fibrillation. #5 History of Tako Subu syndrome following a fall down an escalator at a casino and was treated in [facility]. August 2018. No coronary artery disease. #6 Hypertension. #7 Hyperlipidemia. #8 History of right-sided breast cancer. No radiation or chemotherapy. #9 splenectomy. #10 History of bowel resection secondary to diverticulitis. #11 History of pericardial window. #12 History of anxiety. Plan: The patient was seen and evaluated by Dr. Benz. Chest x-ray and labs reviewed. Echocardiogram pending. We'll continue with DuoNeb inhalations, add Symbicort. She would benefit from full pulmonary function testing to evaluate the severity of her stated chronic bronchitis/COPD. She is scheduled to see Dr. Ayers in our office on 01/18/2019. We will continue to follow and make further recommendations based on her clinical status. I, the cosigning physician, performed a history & physical examination of the patient. Lungs sounds are clear. Maintaining good O2 saturations in the 90s on 2 L/m per nasal cannula. I discussed the assessment and plan of care with my nurse practitioner, Kristie Cramer. I attest to the above consultation as dictated by her. Time with Patient: Greater than 30
--- NOTE | 2019-01-15 14:14 | P.CRDCN ---
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 She follows in the office with Dr. Rivera. We have been asked to see her in consultation secondary to chest discomfort. She states she started having chest discomfort on Friday of last week. She did come to the emergency department and they thought at that time her chest discomfort was associated with anxiety as she had been out of her Klonopin for 3 days. However as the week progressed she continued to feel chest discomfort associated with exertion and shortness of breath. She started coughing as well with no significant sputum production. She states every time she did light activity such as shucking corn walking to the bathroom or light ambulation arou nd her home she became extremely short of breath. Per the daughter's the shortness of breath came first and then she would describe a tightness in the chest. She does check her pulse ox at home periodically and at times with activities her pulse oxygenation level is 88% on 2 L of oxygen nasal cannula. Her chest pain is not pleuritic and not related to her cough. EKG reveals sinus bradycardia heart rate 52, high lateral T-wave inversion, mild OK depression upsloping. Chest xray is negative for an acute process with chronic parenchymal changes. Laboratory data reviewed, CBC unremarkable, d-dimer 0.22, sodium 140, potassium 4.2, creatinine 0.67, magnesium 2.0, troponin negative 1, CRP 11.7, proBNP 136 At the time of my exam: CONSTITUTIONAL: Denies fever. Denies chills. EYES: Denies blurred vision. Denies vision changes. Denies eye pain. EARS, NOSE, MOUTH & THROAT: Denies headache. Denies sore throat. Denies ear pain. CARDIOVASCULAR: Complains of exertional chest pain. Complains of shortness of breath. Denies orthopnea. Denies PND. Denies palpitations. RESPIRATORY: Complains of cough. GASTROINTESTINAL: Denies abdominal pain. Denies diarrhea. Denies constipation. Denies nausea. Denies vomiting. MUSCULOSKELETAL: Denies myalgias. INTEGUMENTARY: Denies pruitis. Denies rash. NEUROLOGIC: Denies numbness. Denies tingling. Denies weakness. PSYCHIATRIC: Denies anxiety. Denies depression. ENDOCRINE: Denies fatigue. Denies weight change. Denies polydipsia. Denies polyurina. GENITOURINARY: Denies burning, hematuria or urgency with micturation. HEMATOLOGIC: Denies history of anemia. Denies bleeding. Blood pressure 134/82 heart rate 53 afebrile maintaining oxygen saturation on ro om air GENERAL: This is a 78-year-old female in no apparent distress at the time of my examination. HEENT: Head is atraumatic, normocephalic. Pupils are equal, round. Sclerae anicteric. Conjunctivae are clear. Mucous membranes of the mouth are moist. Neck is supple. There is no jugular venous distention. No carotid bruit is heard. LUNGS: Clear to auscultation no wheezes, rales or rhonchi. No chest wall tenderness is noted on palpation or with deep breathing. HEART: Regular rate and rhythm with systolic ejection murmur at the base and left sternal border, no rubs or gallops. S1 and S2 heard. ABDOMEN: Soft, nontender. Bowel sounds are heard. No organomegaly noted. EXTREMITIES: No evidence of peripheral edema and no calf tenderness noted. VASCULAR: Radial and dorsalis pedis pulses palpated, no evidence of clubbing. NEUROLOGIC: Patient is awake, alert and oriented x3. ASSESSMENT Chest pain, suggestive of angina. Recent cardiac catheterization August 2018 at the [facility] revealed normal coronary arteries with evidence of anterior apical and inferior apical hypokinesia suggestive of tach as above syndrome with an ejection fraction of 30%. May be related to vasospasm. Shortness of breath, chronic hypoxic respiratory failure on home oxygen 24 hours a day. Unknown etiology History of takotsubo syndrome 08/2018 in [place]. Diagnosis made at [facility]. Records with Dr. 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 We will initiate on small dose of long acting nitrates for possible vasospasm. Continue to obtain serial cardiac enzymes to rule out an acute event. Echocardiogram has been obtained and will be reviewed. Continue xarelto, amlodipine, atorvastatin and toprol as previously ordered. Thank you kindly for this consultation. Nurse Practitioner note has been reviewed, I agree with a documented findings and plan of care. Patient was seen and examined. 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 History of Any Multi-Drug Resistant Organisms: None Reported Past Surgical History: Appendectomy, Breast Surgery, Hysterectomy Additional Past Surgical History / Comment(s): Ross filter, pericardial window, cardiac caths, R mastectomy, colonoscopies/benign polypectomies, bowel resection for diverticulitis, spleenectomy d/t hemolytic anemia, abdominal juli ia surgeries/mesh. Past Anesthesia/Blood Transfusion Reactions: No Reported Reaction Smoking Status: Never smoker - Past Family History Mother Family Medical History: Coronary Artery Disease (CAD), Myocardial Infarction (NH) Additional Family Medical History / Comment(s): Mother had rheumatic fever. She had her first NH in her late 30s and of a NH at the age of 53 yrs. Father History Unknown: Yes Family Medical History: No Reported History Additional Family Medical History / Comment(s): Father in a traumatic accident when pt was 6 yrs old. Medications and Allergies Home Medications Medication Instructions Recorded Confirmed Type Atorvastatin Calcium [Lipitor] 10 mg PO HS 01/28/17 01/15/19 History Gabapentin [Neurontin] 300 mg PO TID 01/28/17 01/15/19 History Sertraline HCl [Zoloft] 150 mg PO DAILY 01/28/17 01/15/19 History amLODIPine [Norvasc] 10 mg PO HS 01/28/17 01/15/19 History Rivaroxaban [Xarelto] 20 mg PO DAILY@1700 09/08/17 01/15/19 History Furosemide [Lasix] 20 mg PO BID 09/20/17 01/15/19 History Methocarbamol [Robaxin] 500 mg PO BID 01/09/19 01/15/19 History Metoprolol Succinate (ER) [Toprol 12.5 mg PO DAILY 01/09/19 01/15/19 History Xl] Travoprost [Travatan Z 0.004%] 1 drop BOTH EYES HS 01/15/19 01/15/19 History clonazePAM [KlonoPIN] 0.5 mg PO HS 01/15/19 01/15/19 History Allergies Allergy/AdvReac Type Severity Reaction Status Date / Time Penicillins Allergy Rash/Hives Verified 01/15/19 10:20 Physical Exam Vitals: Vital Signs Temp Pulse Resp BP Pulse Ox 01/15/19 11:30 53 L 13 134/82 95 01/15/19 11:00 48 L 12 120/80 95 01/15/19 10:30 52 L 11 L 100/71 01/15/19 10:00 52 L 14 139/72 95 01/15/19 09:28 61 18 141/70 94 L 01/15/19 09:27 22 01/15/19 09:22 53 L 18 156/91 95 01/15/19 08:47 95 01/15/19 08:36 98.4 F 20 L 56 H 144/65 98 Intake and Output 01/14/19 01/15/19 01/15/19 22:59 06:59 14:59 Other: Weight 83.915 kg Results 01/15/19 09:05 01/15/19 09:05 Cardiac Enzymes 01/15/19 01/15/19 Range/Units 09:05 09:05 AST 28 (14-36) U/L Troponin I <0.012 (0.000-0.034) ng/mL Coagulation 01/15/19 Range/Units 09:05 PT 11.3 (9.0-12.0) sec APTT 26.6 (22.0-30.0) sec CBC 01/15/19 Range/Units 09:05 WBC 8.4 (3.8-10.6) k/uL RBC 4.87 (3.80-5.40) m/uL Hgb 14.4 (11.4-16.0) gm/dL Hct 45.3 (34.0-46.0) % Plt Count 319 (150-450) k/uL Comprehensive Metabolic Panel 01/15/19 Range/Units 09:05 Sodium 140 (137-145) mmol/L Potassium 4.2 (3.5-5.1) mmol/L Chloride 104 (98-107) mmol/L Carbon Dioxide 30 (22-30) mmol/L BUN 15 (7-17) mg/dL Creatinine 0.67 (0.52-1.04) mg/dL Glucose 138 H (74-99) mg/dL Calcium 9.9 (8.4-10.2) mg/dL AST 28 (14-36) U/L ALT 23 (9-52) U/L Alkaline Phosphatase 91 (38-126) U/L Total Protein 7.0 (6.3-8.2) g/dL Albumin 3.9 (3.5-5.0) g/dL Current Medications Generic Name Dose Route Start Last Admin Trade Name Freq PRN Reason Stop Dose Admin Albuterol/Ipratropium 3 ml 01/15/19 10:40 Duoneb 0.5 Mg-3 Mg/3 Ml Soln INHALATION RT-Q4H PRN Shortness Of Breath Or Wheezing Aspirin 325 mg 01/16/19 09:00 Aspirin PO DAILY JOHNY Nitroglycerin 0.4 mg 01/15/19 10:40 Nitrostat SUBLINGUAL Q5M PRN Chest Pain Intake and Output 01/14/19 01/15/19 01/15/19 22:59 06:59 14:59 Other: Weight 83.915 kg Patient Weight 01/16/19 06:59 Weight 83.915 kg 01/15/19 09:05 01/15/19 09:05
[2019-01-15] MEDS: ISOSORBIDE MONONITRATE ER 30 MG TAB.ER.24H PO SCH (15:31)
[2019-01-15] MEDS: RIVAROXABAN 20 MG TAB PO SCH (17:06)
[2019-01-15] MEDS: FUROSEMIDE 20 MG TAB PO SCH (17:06)
--- NOTE | 2019-01-15 19:01 | ECHOF ---
Referral Reason:cp,dyspnea MEASUREMENTS -------- HEIGHT: 154.9 cm WEIGHT: 83.9 kg BP: 141/0 RVIDd: 3.3 cm (< 3.3) IVSd: 1.3 cm (0.6 - 1.1) LVIDd: 4.0 cm (3.9 - 5.3) LVPWd: 1.2 cm (0.6 - 1.1) IVSs: 1.7 cm LVIDs: 2.3 cm LVPWs: 1.7 cm LA Diam: 4.1 cm (2.7 - 3.8) LAESV Index (A-L): 33.69 ml/m Ao Diam: 3.0 cm (2.0 - 3.7) AV Cusp: 1.9 cm (1.5 - 2.6) MV EXCURSION: 17.007 mm (> 18.000) MV EF SLOPE: 31 mm/s (70 - 150) EPSS: 1.1 cm MV E Ted: 0.75 m/s MV DecT: 407 ms MV A Ted: 0.88 m/s MV E/A Ratio: 0.85 AR PHT: 804 ms RAP: 5.00 mmHg RVSP: 39.58 mmHg TAPSE: 18.44 mm FINDINGS -------- Resting bradycardia (HR<60bpm). This was a technically good study. The left ventricular size is normal. There is mild concentric left ventricular hypertrophy. Overa ll left ventricular systolic function is normal with, an EF between 60 - 65 %. The diastolic fillin g pattern indicates impaired relaxation 19.24. The right ventricle is mildly enlarged. LA is midly dilated 29-33ml/m2. The right atrium is normal in size. Interatrial and interventricular septum intact. There is mild aortic valve sclerosis. There is mild aortic regurgitation. The mitral valve leaflets are mildly thickened. Mild mitral annular calcification present. Mild m itral regurgitation is present. Moderate tricuspid regurgitation present. There is mild pulmonary hypertension. The right ventric ular systolic pressure, as measured by Doppler, is 39.58mmHg. Moderate pulmonic regurgitation. The aortic root size is normal. Normal inferior vena cava with normal inspiratory collapse consistent with estimated right atrial pre ssure of 5 mmHg. There is no pericardial effusion. CONCLUSIONS -------- 1. Resting bradycardia (HR<60bpm). 2. This was a technically good study. 3. The left ventricular size is normal. 4. There is mild concentric left ventricular hypertrophy. 5. Overall left ventricular systolic function is normal with, an EF between 60 - 65 %. 6. The diastolic filling pattern indicates impaired relaxation 19.24.. 7. The right ventricle is mildly enlarged. 8. LA is midly dilated 29-33ml/m2. 9. The right atrium is normal in size. 10. Interatrial and interventricular septum intact. 11. There is mild aortic valve sclerosis. 12. There is mild aortic regurgitation. 13. The mitral valve leaflets are mildly thickened. 14. Mild mitral annular calcification present. 15. Mild mitral regurgitation is present. 16. Moderate tricuspid regurgitation present. 17. There is mild pulmonary hypertension. 18. The right ventricular systolic pressure, as measured by Doppler, is 39.58mmHg. 19. Moderate pulmonic regurgitation. 20. The aortic root size is normal. 21. Normal inferior vena cava with normal inspiratory collapse consistent with estimated right atrial pressure of 5 mmHg. 22. There is no pericardial effusion. PLASTIC BUBBLE PACKER: Chelsie Perkins RDCS
[2019-01-15 19:28] VITALS: RESP 18
[2019-01-15] MEDS: ATORVASTATIN 10 MG TAB PO SCH (19:35)
[2019-01-15] MEDS: amLODIPine 10 MG TAB PO SCH (19:35)
[2019-01-15] MEDS ORDERED: SYMBICORT 160-4.5 MCG INHALER INHALATION SCH (20:00)
--- NOTE | 2019-01-15 20:07 | P.HPIM ---
History of Present Illness H&P Date: 01/15/19 Chief Complaint: Cough History of presenting complaint: This is a 78-year-old patient of Dr. Rg Phipps. 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 Other chronic stable medical conditions include GERD, hypertension, hyperlipidemia, abdominal wall hernia, chronic hypoxic respiratory failure with oxygen at night, paroxysmal atrial fibrillation. Patient back in September of this year had a normal cardiac catheterization.: The patient is noticed that she has become more and more short of breath. Her cough a bit congested in the chest but not able to expectorate anything. She has had a hoarse voice. Some nausea. No change in bowel or urine. No fever no chills. Appetite is fair. With coughing she's also developed some chest pain that when she coughs. Review of systems: GEN.: Tired EYES: None HEENT: None NECK: None RESPIRATORY: [As above CARDIOVASCULAR: As above GASTROINTESTINAL: None GENITOURINARY: None MUSCULOSKELETAL: Joint pains LYMPHATICS: None HEMATOLOGICAL: None PSYCHIATRY: Slightly anxious NEUROLOGICAL: Uses a walker Past medical history to include: Empty HFR gene mutation, COPD, chronic pulmonary embolism, GERD, essential hypertension, hyperlipidemia, abdominal wall hernia, chronic hypoxic respiratory failure with oxygen at night, paroxysmal atrial fibrillation Social history: Lives at [facility]. Does use a walker. No smoking or alcohol. Physical examination: VITAL SIGNS: 98.4, 20, 156, 140/65, 98% on 2 L GENERAL: BMI 35, sitting up a bit tired. EYES: Pupils equal. Conjunctiva normal. HEENT: External appearance of nose and ears normal, oral cavity grossly normal. NECK: JVD not raised; masses not palpable. HEART: First and second heart sounds are normal; no edema. LUNGS: Respiratory rate increased, diminished breath sounds prolonged expiration and wheezing. ABDOMEN: Soft, nontender, liver spleen not palpable, no masses palpable. PSYCH: Alert and oriented x3; mood and affect normal. NEUROLOGICAL: Cranial nerves grossly intact; no facial asymmetry, power and sensation grossly intact. LYMPHATICS: No lymph nodes palpable in the axilla and neck INVESTIGATIONS, reviewed in the clinical context: White count 8.4 hemoglobin 14.4 potassium 4.2 creatinine 0.67 proBNP 1 36 Troponin I 2 negative 2-D echo shows EF of 60-65% Moderate tricuspid regurgitation, moderate pulmonary regurgitation Chest x-ray film personally reviewed by me-no obvious infiltrate, questionable chronic changes EKG tracing personally reviewed by me-normal sinus rhythm Assessment: -Possible acute viral tracheobronchitis which is lasted for over a week. Causing cough and congestion. there is no sputum expectoration.'s. No fever no chills. Patient is associated laryngitis and pharyngitis. Also seems to be viral. 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 Highly doubt cardiac cause Plan: Patient is started on nebulized bronchodilators, inhaled steroids. Home medications were resumed. Care was discussed at length with patient's daughter the bedside. We'll also give short course of antihistamine decongestant. Lovenox for DVT prophylaxis. 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 History of Any Multi-Drug Resistant Organisms: None Reported Past Surgical History: Appendectomy, Breast Surgery, Hysterectomy Additional Past Surgical History / Comment(s): [place] filter, pericardial window, cardiac caths, R mastectomy, colonoscopies/benign polypectomies, bowel resection for diverticulitis, spleenectomy d/t hemolytic anemia, abdominal hernia surgeries/mesh. Past Anesthesia/Blood Transfusion Reactions: No Reported Reaction Smoking Status: Never smoker - Past Family History Mother Family Medical History: Coronary Artery Disease (CAD), Myocardial Infarction (MD) Additional Family Medical History / Comment(s): Mother had rheumatic fever. She had her first MD in her late 30s and of a MD at the age of 53 yrs. Father History Unknown: Yes Family Medical History: No Reported History Additional Family Medical History / Comment(s): Father in a traumatic accident when pt was 6 yrs old. Medications and Allergies Home Medications Medication Instructions Recorded Confirmed Type Atorvastatin Calcium [Lipitor] 10 mg PO HS 01/28/17 01/15/19 History Gabapentin [Neurontin] 300 mg PO TID 01/28/17 01/15/19 History Sertraline HCl [Zoloft] 150 mg PO DAILY 01/28/17 01/15/19 History amLODIPine [Norvasc] 10 mg PO HS 01/28/17 01/15/19 History Rivaroxaban [Xarelto] 20 mg PO DAILY@1700 09/08/17 01/15/19 History Furosemide [Lasix] 20 mg PO BID 09/20/17 01/15/19 History Methocarbamol [Robaxin] 500 mg PO BID 01/09/19 01/15/19 History Metoprolol Succinate (ER) [Toprol 12.5 mg PO DAILY 01/09/19 01/15/19 History Xl] Travoprost [Travatan Z 0.004%] 1 drop BOTH EYES HS 01/15/19 01/15/19 History clonazePAM [KlonoPIN] 0.5 mg PO HS 01/15/19 01/15/19 History Allergies Allergy/AdvReac Type Severity Reaction Status Date / Time Penicillins Allergy Rash/Hives Verified 01/15/19 10:20 Physical Exam Vitals: Vital Signs Temp Pulse Pulse Resp BP BP Pulse Ox 01/15/19 19:28 98.3 F 44 L 18 136/57 94 L 01/15/19 15:50 98.7 F 50 L 150/72 96 01/15/19 13:14 76 01/15/19 13:05 76 01/15/19 11:44 98.1 F 47 L 16 128/77 93 L 01/15/19 11:30 53 L 13 134/82 95 01/15/19 11:00 48 L 12 120/80 95 01/15/19 10:30 52 L 11 L 100/71 01/15/19 10:00 52 L 14 139/72 95 01/15/19 09:28 61 18 141/70 94 L 01/15/19 09:27 22 01/15/19 09:22 53 L 18 156/91 95 01/15/19 08:47 95 01/15/19 08:36 98.4 F 20 L 56 H 144/65 98 Intake and Output 01/15/19 01/15/19 01/15/19 06:59 14:59 22:59 Other: Weight 83.915 kg Results CBC & Chem 7: 01/15/19 09:05 01/15/19 09:05 Labs: Abnormal Lab Results - Last 24 Hours (Table) 01/15/19 01/15/19 01/15/19 Range/Units 09:05 09:05 09:05 Monocytes # (Manual) 1.01 H (0-1.0) k/uL Glucose 138 H (74-99) mg/dL POC Glucose (mg/dL) (75-99) mg/dL C-Reactive Protein 11.7 H (<10.0) mg/L 01/15/19 Range/Units 12:16 Monocytes # (Manual) (0-1.0) k/uL Glucose (74-99) mg/dL POC Glucose (mg/dL) 108 H (75-99) mg/dL C-Reactive Protein (<10.0) mg/L Thrombosis Risk Factor Assmnt - Choose All That Apply Any of the Below Risk Factors Present?: Yes Each Factor Represents 1 point: Obesity (BMI >25) Other Risk Factors: Yes Each Risk Factor Represents 2 Points: Malignancy Each Risk Factor Represents 3 Points: Age 75 years or older, Family history of DVT/PE, History of DVT/PE Other congenital or acquired thrombophilia - If yes, enter type in comment: No Thrombosis Risk Factor Assessment Total Risk Factor Score: 12 Thrombosis Risk Factor Assessment Level: High Risk
[2019-01-15] MEDS: GABAPENTIN 300 MG CAP PO SCH (20:25)
[2019-01-15] MEDS: METHOCARBAMOL 500 MG TAB PO SCH (20:25)
[2019-01-15] MEDS: clonazePAM 0.5 MG TAB PO SCH (20:26)
[2019-01-15] MEDS: LATANOPROST 0.005% OPHTH DROPS 2.5 ML BTL BOTH EYES SCH (20:26)
[2019-01-15] MEDS: predniSONE 20 MG TAB PO SCH (20:35)
[2019-01-15] MEDS: LORATADINE-PSEUDOEPH 5-120 MG 1 EACH TAB.ER.12H PO SCH (20:36)
[2019-01-15] MEDS: BUDESONIDE 1 MG/2 ML NEBU INHALATION SCH (20:42)
[2019-01-15] MEDS: IPRATROPIUM-ALBUTEROL 3 ML NEB INHALATION SCH ×2 (20:42→23:13)
[2019-01-15] MEDS: FORMOTEROL FUMARATE 20 MCG/2 ML NEBU INHALATION SCH (20:53)
[2019-01-16] MEDS: IPRATROPIUM-ALBUTEROL 3 ML NEB INHALATION SCH ×6 (03:11→23:57)
[2019-01-16 04:05] LABS: Cholesterol 146 mg/dL (<200); HDL Cholesterol 51 mg/dL (40-60); LDL Cholesterol,Calculated 78 mg/dL (0-99); Triglycerides 86 mg/dL (<150)
[2019-01-16] MEDS: BUDESONIDE 1 MG/2 ML NEBU INHALATION SCH ×2 (07:20→19:27)
[2019-01-16] MEDS: FORMOTEROL FUMARATE 20 MCG/2 ML NEBU INHALATION SCH ×2 (07:20→19:27)
--- NOTE | 2019-01-16 08:17 | P.PN ---
Subjective Progress Note Date: 01/16/19 This is a 78-year-old female with history of apical ballooning syndrome is admitted to the hospital with complaints of a tight feeling in the chest. Patient also has some cough and bronchitis-like symptoms. Her cardiac enzymes have been negative. EKGs are negative. Patient was put on Imdur yesterday. Patient symptoms are still continuing and appeared to be atypical. Patient had 2 cardiac catheterizations, the last one being in August of last year which did not reveal any obstructive coronary artery disease. I discussed with the patient and explained that symptoms probably not cardiac in nature. No further cardiac workup is suggested at this time. Patient could be discharged home on medical therapy, When clinically stable. Follow-up with Dr. Bailey Objective - Vital Signs Vital signs: Vital Signs Temp 97.7 F 01/16/19 07:04 Pulse 64 01/16/19 07:40 Resp 18 01/16/19 07:04 BP 154/81 01/16/19 07:04 Pulse Ox 95 01/16/19 07:04 Intake & Output 01/15/19 01/16/19 01/16/19 18:59 06:59 18:59 Intake Total 400 240 Balance 400 240 Weight 83.915 kg Intake: Oral 400 240 Other: Voiding Method Bedside Commode # Voids 1 2 1 - Exam GENERAL EXAM: Patient is alert and oriented and doesn't appear to be in any acute distress HEENT: Normocephalic. Normal reaction of pupils, equal size, normal range of extraocular motion. No erythema or exudates in the throat. NECK: No masses, no nuchal rigidity. CHEST: No chest wall deformity. LUNGS: Equal air entry with no crackles or wheeze. HEART: S1 and S2 normal with no audible mumurs or gallops. Regular rhythm, femorals equal on both sides.. ABDOMEN: No hepatosplenomegaly, normal bowel sounds, no guarding or rigidity. SKIN: No rashes CENTRAL NERVOUS SYSTEM: No focal deficits. EXTREMITIES: No cyanosis, clubbing or edema. - Labs CBC & Chem 7: 01/15/19 09:05 01/15/19 09:05 Labs: Abnormal Lab Results - Last 24 Hours (Table) 01/15/19 01/15/19 01/15/19 Range/Units 09:05 09:05 09:05 Monocytes # (Manual) 1.01 H (0-1.0) k/uL Glucose 138 H (74-99) mg/dL POC Glucose (mg/dL) (75-99) mg/dL C-Reactive Protein 11.7 H (<10.0) mg/L 01/15/19 Range/Units 12:16 Monocytes # (Manual) (0-1.0) k/uL Glucose (74-99) mg/dL POC Glucose (mg/dL) 108 H (75-99) mg/dL C-Reactive Protein (<10.0) mg/L Assessment and Plan (1) Apical ballooning syndrome Current Visit: Yes Status: Acute Code(s): I51.81 - TAKOTSUBO SYNDROME SNOMED Code(s): 739389548 (2) Chest pain Current Visit: Yes Status: Acute Code(s): R07.9 - CHEST PAIN, UNSPECIFIED SNOMED Code(s): 62806583 (3) Anxiety Current Visit: No Status: Acute Code(s): F41.9 - ANXIETY DISORDER, UNSPECIFIED SNOMED Code(s): 81871334 (4) Chest wall syndrome Current Visit: No Status: Acute Code(s): R07.1 - CHEST PAIN ON BREATHING SNOMED Code(s): 299296160 Plan: Cardiac workup so far is negative. No further cardiac testing. Follow-up with Dr. Bailey upon discharge
[2019-01-16] MEDS: METOPROLOL SUCCINATE (ER) 25 MG TAB.ER.24H PO SCH (08:36)
[2019-01-16] MEDS: SERTRALINE 50 MG TAB PO SCH (08:36)
[2019-01-16] MEDS: LORATADINE-PSEUDOEPH 5-120 MG 1 EACH TAB.ER.12H PO SCH ×2 (08:36→19:47)
[2019-01-16] MEDS: METHOCARBAMOL 500 MG TAB PO SCH ×2 (08:36→19:44)
[2019-01-16] MEDS: ISOSORBIDE MONONITRATE ER 30 MG TAB.ER.24H PO SCH (08:38)
[2019-01-16] MEDS: GABAPENTIN 300 MG CAP PO SCH ×3 (08:38→19:43)
[2019-01-16] MEDS: FUROSEMIDE 20 MG TAB PO SCH ×2 (08:38→16:47)
[2019-01-16] MEDS: predniSONE 20 MG TAB PO SCH (08:39)
[2019-01-16] MEDS ORDERED: ASPIRIN 325 MG TAB PO SCH (09:00)
--- NOTE | 2019-01-16 13:58 | P.PN ---
Subjective 78-year-old female admitted for gram asthma exacerbation patient is still having significant wheezing because of which I'll continue with inhalational treatments continue with the systemic steroids. Patient was actually admitted for Rule out acute coronary syndromes like unstable angina which was ruled out cardiology evaluated the patient. Patient doesn't have any pneumonia, patient had history of pulmonary embolism for which patient is on anticoagulation which is being continued. Constitutional: Patient is complaining of tiredness and fatigue Cardio vascular: denied any chest pain, palpitations Gastrointestinal denied any nausea vomiting Pulmonary: Can use to have shortness of breath but much better since admission Neurologic denied any new focal deficits All inpatient medications were reviewed and appropriate changes in these medi cations as dictated in the interval history and assessment and plan. Objective - Vital Signs Vital signs: Vital Signs Temp 97.7 F 01/16/19 11:17 Pulse 76 01/16/19 11:25 Resp 18 01/16/19 12:00 BP 130/68 01/16/19 11:17 Pulse Ox 96 01/16/19 11:17 Intake & Output 01/15/19 01/16/19 01/16/19 18:59 06:59 18:59 Intake Total 400 1140 Output Total 700 Balance 400 440 Weight 83.915 kg Intake: Oral 400 1140 Output: Urine 700 Other: Voiding Method Bedside Commode Bedside Commode # Voids 1 2 1 - Exam PHYSICAL EXAMINATION: GENERAL: The patient is alert and oriented x3, not in any acute distress. Well developed, well nourished. HEENT: Pupils are round and equally reacting to light. EOMI. No scleral icterus. No conjunctival pallor. Normocephalic, atraumatic. No pharyngeal erythema. No thyromegaly. CARDIOVASCULAR: S1 and S2 present. No murmurs, rubs, or gallops. PULMONARY: Fairly good air entry into bilateral lung mcgovern breath some extremity wheezing significant ABDOMEN: Soft, nontender, nondistended, normoactive bowel sounds. No palpable organomegaly. MUSCULOSKELETAL: No joint swelling or deformity. EXTREMITIES: No cyanosis, clubbing, or pedal edema. NEUROLOGICAL: Gross neurological examination did not reveal any focal deficits. SKIN: No rashes. - Labs CBC & Chem 7: 01/15/19 09:05 01/15/19 09:05 Assessment and Plan Plan: -Acute asthma exacerbation continue systemic steroids inhalational treatments and patient appears to have inflammatory bronchitis. We will continue with inhalational treatments and systemic steroids today here possibility of discharge tomorrow -Proximal atrial fibrillation patient is presently rate controlled sinus rhythm continue that correlation -History of PE -Abdominal wall hernia no further intervention at this time -Peripheral neuropathy for which patient is on gabapentin which will be continued -Hyperlipidemia continue with atorvastatin
[2019-01-16] MEDS: RIVAROXABAN 20 MG TAB PO SCH (16:47)
[2019-01-16] MEDS: clonazePAM 0.5 MG TAB PO SCH (19:44)
[2019-01-16] MEDS: amLODIPine 10 MG TAB PO SCH (19:44)
[2019-01-16] MEDS: ATORVASTATIN 10 MG TAB PO SCH (19:44)
[2019-01-16] MEDS: LATANOPROST 0.005% OPHTH DROPS 2.5 ML BTL BOTH EYES SCH (19:45)
[2019-01-17] MEDS: IPRATROPIUM-ALBUTEROL 3 ML NEB INHALATION SCH ×6 (05:37→23:54)
[2019-01-17] MEDS: METHOCARBAMOL 500 MG TAB PO SCH ×2 (08:20→19:26)
[2019-01-17] MEDS: LORATADINE-PSEUDOEPH 5-120 MG 1 EACH TAB.ER.12H PO SCH ×2 (08:20→19:26)
[2019-01-17] MEDS: SERTRALINE 50 MG TAB PO SCH (08:21)
[2019-01-17] MEDS: predniSONE 20 MG TAB PO SCH (08:22)
[2019-01-17] MEDS: FUROSEMIDE 20 MG TAB PO SCH ×2 (08:22→16:52)
[2019-01-17] MEDS: METOPROLOL SUCCINATE (ER) 25 MG TAB.ER.24H PO SCH (08:22)
[2019-01-17] MEDS: GABAPENTIN 300 MG CAP PO SCH ×3 (08:22→19:26)
[2019-01-17] MEDS: ISOSORBIDE MONONITRATE ER 30 MG TAB.ER.24H PO SCH (08:22)
--- NOTE | 2019-01-17 09:04 | P.PN ---
Subjective Progress Note Date: 01/17/19 This is a 78-year-old female with history of apical ballooning syndrome is admitted to the hospital with complaints of a tight feeling in the chest. Patient also has some cough and bronchitis-like symptoms. Her cardiac enzymes have been negative. EKGs are negative. Patient was put on Imdur yesterday. Patient symptoms are still continuing and appeared to be atypical. Patient had 2 cardiac catheterizations, the last one being in August of last year which did not reveal any obstructive coronary artery disease. I discussed with the patient and explained that symptoms probably not cardiac in nature. No further cardiac workup is suggested at this time. Patient could be discharged home on medical therapy, When clinically stable. Follow-up with Dr. Bailey 01/17/2019: Patient is clinically seemed to be same. Complaints of persistent cough and shortness of breath. Intermittent chest tightness. Atypical with a known normal coronary arteries from August of this year. Her echo Cardigan showed normal LV function. A pulmonary consult may be considered for symptoms of persistent cough and bronchitis. We'll be following her on when necessary basis. Follow-up with Dr. Bailey as an outpatient Objective - Vital Signs Vital signs: Vital Signs Temp 98.4 F 01/17/19 07:41 Pulse 88 01/17/19 07:48 Resp 18 01/17/19 07:41 BP 122/64 01/17/19 07:41 Pulse Ox 97 01/17/19 07:41 Intake & Output 01/16/19 01/17/19 01/17/19 18:59 06:59 18:59 Intake Total 1920 Output Total 700 Balance 1220 Intake: Oral 1620 Other 300 Output: Urine 700 Other: Voiding Method Bedside Commode Bedside Commode # Voids 4 1 - Exam GENERAL EXAM: Patient is alert and oriented and doesn't appear to be in any acute distress HEENT: Normocephalic. Normal reaction of pupils, equal size, normal range of extraocular motion. No erythema or exudates in the throat. NECK: No masses, no nuchal rigidity. CHEST: No chest wall deformity. LUNGS: Equal air entry with no crackles or wheeze. HEART: S1 and S2 normal with no audible mumurs or gallops. Regular rhythm, femorals equal on both sides.. ABDOMEN: No hepatosplenomegaly, normal bowel sounds, no guarding or rigidity. SKIN: No rashes CENTRAL NERVOUS SYSTEM: No focal deficits. EXTREMITIES: No cyanosis, clubbing or edema. - Labs CBC & Chem 7: 01/15/19 09:05 01/15/19 09:05 Assessment and Plan (1) Apical ballooning syndrome Current Visit: Yes Status: Acute Code(s): I51.81 - TAKOTSUBO SYNDROME SNOMED Code(s): 840038021 (2) Chest pain Current Visit: Yes Status: Acute Code(s): R07.9 - CHEST PAIN, UNSPECIFIED SNOMED Code(s): 23202865 (3) Anxiety Current Visit: No Status: Acute Code(s): F41.9 - ANXIETY DISORDER, UNSPECIFIED SNOMED Code(s): 28484703 (4) Chest wall syndrome Current Visit: No Status: Acute Code(s): R07.1 - CHEST PAIN ON BREATHING SNOMED Code(s): 242356099 Plan: Patient is cardiac-lew stable. Still having issues with asthma and bronchitis and cough. We'll follow when necessary
[2019-01-17] MEDS: FORMOTEROL FUMARATE 20 MCG/2 ML NEBU INHALATION SCH ×2 (11:05→20:23)
[2019-01-17] MEDS: BUDESONIDE 1 MG/2 ML NEBU INHALATION SCH ×2 (11:06→20:23)
--- NOTE | 2019-01-17 14:19 | XR ---
EXAMINATION TYPE: XR chest 2V DATE OF EXAM: 01/17/2019 COMPARISON: 01/15/2019 HISTORY: Cough and congestion TECHNIQUE: Frontal and lateral views of the chest are obtained. FINDINGS: There is poor inspiration with elevated diaphragms. There is no heart failure. Heart size is normal. There are chest leads. Thoracic aorta is atheromatous. IMPRESSION: Bilateral basilar atelectasis unchanged. No heart failure.
--- NOTE | 2019-01-17 15:27 | P.DS ---
Providers Date of admission: 01/15/19 10:40 Attending physician: Rhett Ashraf Consults: 01/15/19 10:40 Consult Physician Urgent Consulting Provider: Atilio Ayers Consult Reason/Comments: dyspnea Do you want consulting provider notified?: Yes Consult Physician Urgent Consulting Provider: Stefan Rivera Consult Reason/Comments: cp Do you want consulting provider notified?: Yes [facility] Course: 78-year-old female admitted for gram asthma exacerbation patient is still having significant wheezing because of which I'll continue with inhalational treatments continue with the systemic steroids. Patient was actually admitted for Ruled out acute coronary syndromes like unstable angina which was ruled out cardiology evaluated the patient. Patient doesn't have any pneumonia, patient had history of pulmonary embolism for which patient is on anticoagulation which is being continued. 01/17/2019 Patient is saturating well up on amylase and on 2 L which she uses at home. Patient still has some wheeze. Patient will be discharged today. PHYSICAL EXAMINATION: GENERAL: The patient is alert and oriented x3, not in any acute distress. Well developed, well nourished. HEENT: Pupils are round and equally reacting to light. EOMI. No scleral icterus. No conjunctival pallor. Normocephalic, atraumatic. No pharyngeal erythema. No thyromegaly. CARDIOVASCULAR: S1 and S2 present. No murmurs, rubs, or gallops. PULMONARY: Fairly good air entry into bilateral lung mcgovern breath some wheezing, improved compared to yesterday her main concern is cough ABDOMEN: Soft, nontender, nondistended, normoactive bowel sounds. No palpable organomegaly. MUSCULOSKELETAL: No joint swelling or deformity. EXTREMITIES: No cyanosis, clubbing, or pedal edema. NEUROLOGICAL: Gross neurological examination did not reveal any focal deficits. SKIN: No rashes. Assessment and Plan Plan: -Acute asthma exacerbation continue systemic steroids inhalational treatments and patient appears to have inflammatory bronchitis. She will be discharged on oral steroids. -Proximal atrial fibrillation patient is presently rate controlled sinus rhythm -History of PE -Abdominal wall hernia no further intervention at this time -Peripheral neuropathy for which patient is on gabapentin which will be continued -Hyperlipidemia continue with atorvastatin Plan - Discharge Summary Discharge Rx Participant: No New Discharge Prescriptions: New predniSONE 10 mg PO DAILY #30 tab Fluticasone/Vilanterol [Breo Ellipta 100-25 Mcg Inhaler] 1 inhalation PO Q24HR #1 inhaler Famotidine [Pepcid] 20 mg PO BID #30 tablet Albuterol Inhaler [Ventolin Hfa Inhaler] 1 - 2 puff INHALATION RT-Q6H PRN #1 inhaler PRN Reason: Shortness Of Breath Or Wheezing Continue Sertraline HCl [Zoloft] 150 mg PO DAILY Atorvastatin Calcium [Lipitor] 10 mg PO HS Gabapentin [Neurontin] 300 mg PO TID amLODIPine [Norvasc] 10 mg PO HS Rivaroxaban [Xarelto] 20 mg PO DAILY@1700 Furosemide [Lasix] 20 mg PO BID Metoprolol Succinate (ER) [Toprol XL] 12.5 mg PO DAILY Methocarbamol [Robaxin] 500 mg PO BID clonazePAM [KlonoPIN] 0.5 mg PO HS Travoprost [Travatan Z 0.004%] 1 drop BOTH EYES HS Discharge Medication List Atorvastatin Calcium [Lipitor] 10 mg PO HS 01/28/17 [History] Gabapentin [Neurontin] 300 mg PO TID 01/28/17 [History] Sertraline HCl [Zoloft] 150 mg PO DAILY 01/28/17 [History] amLODIPine [Norvasc] 10 mg PO HS 01/28/17 [History] Rivaroxaban [Xarelto] 20 mg PO DAILY@1700 09/08/17 [History] Furosemide [Lasix] 20 mg PO BID 09/20/17 [History] Methocarbamol [Robaxin] 500 mg PO BID 01/09/19 [History] Metoprolol Succinate (ER) [Toprol XL] 12.5 mg PO DAILY 01/09/19 [History] Travoprost [Travatan Z 0.004%] 1 drop BOTH EYES HS 01/15/19 [History] clonazePAM [KlonoPIN] 0.5 mg PO HS 01/15/19 [History] Albuterol Inhaler [Ventolin Hfa Inhaler] 1 - 2 puff INHALATION RT-Q6H PRN #1 inhaler 01/17/19 [Rx] Famotidine [Pepcid] 20 mg PO BID #30 tablet 01/17/19 [Rx] Fluticasone/Vilanterol [Breo Ellipta 100-25 Mcg Inhaler] 1 inhalation PO Q24HR #1 inhaler 01/17/19 [Rx] predniSONE 10 mg PO DAILY #30 tab 01/17/19 [Rx] Follow up Appointment(s)/Referral(s): Rg Barba DO [Primary Care Provider] - 3 Days Discharge Disposition: HOME SELF-CARE
[2019-01-17] MEDS: guaiFENesin SYRUP 100MG/5ML 200 MG/10 ML CUP PO PRN (16:52)
[2019-01-17] MEDS: RIVAROXABAN 20 MG TAB PO SCH (16:52)
[2019-01-17] MEDS: ATORVASTATIN 10 MG TAB PO SCH (19:26)
[2019-01-17] MEDS: LATANOPROST 0.005% OPHTH DROPS 2.5 ML BTL BOTH EYES SCH (19:26)
[2019-01-17] MEDS: amLODIPine 10 MG TAB PO SCH (19:26)
[2019-01-17] MEDS: clonazePAM 0.5 MG TAB PO SCH (19:26)
[2019-01-18] MEDS: guaiFENesin SYRUP 100MG/5ML 200 MG/10 ML CUP PO PRN ×2 (00:15→08:55)
[2019-01-18] MEDS: IPRATROPIUM-ALBUTEROL 3 ML NEB INHALATION SCH ×3 (03:54→11:53)
[2019-01-18] MEDS: FUROSEMIDE 20 MG TAB PO SCH (08:22)
[2019-01-18] MEDS: METHOCARBAMOL 500 MG TAB PO SCH (08:22)
[2019-01-18] MEDS: predniSONE 20 MG TAB PO SCH (08:22)
[2019-01-18] MEDS: METOPROLOL SUCCINATE (ER) 25 MG TAB.ER.24H PO SCH (08:22)
[2019-01-18] MEDS: BUDESONIDE 1 MG/2 ML NEBU INHALATION SCH (08:23)
[2019-01-18] MEDS: GABAPENTIN 300 MG CAP PO SCH (08:23)
[2019-01-18] MEDS: SERTRALINE 50 MG TAB PO SCH (08:23)
[2019-01-18] MEDS: LORATADINE-PSEUDOEPH 5-120 MG 1 EACH TAB.ER.12H PO SCH (08:23)
[2019-01-18] MEDS: FORMOTEROL FUMARATE 20 MCG/2 ML NEBU INHALATION SCH (08:23)
[2019-01-18 11:14] VITALS: BP 147/73; PULSE 69; TEMP 98.6
--- NOTE | 2019-01-18 16:55 | P.DS ---
Providers Date of admission: 01/17/19 16:28 Attending physician: Rhett Ashraf Consults: 01/15/19 10:40 Consult Physician Urgent Consulting Provider: Stefan Rivera Consult Reason/Comments: cp Do you want consulting provider notified?: Yes Consult Physician Urgent Consulting Provider: Atilio Ayers Consult Reason/Comments: dyspnea Do you want consulting provider notified?: Yes [facility] Course: Patient is clinically doing better today wheezing improved patient ended up staying last night here. Patient will be discharged today. Please refer to my dictation of discharge summary from yesterday for further details Plan - Discharge Summary Discharge Rx Participant: No New Discharge Prescriptions: New predniSONE 10 mg PO DAILY #30 tab Fluticasone/Vilanterol [Breo Ellipta 100-25 Mcg Inhaler] 1 inhalation PO Q24HR #1 inhaler Famotidine [Pepcid] 20 mg PO BID #30 tablet Albuterol Inhaler [Ventolin Hfa Inhaler] 1 - 2 puff INHALATION RT-Q6H PRN #1 inhaler PRN Reason: Shortness Of Breath Or Wheezing guaiFENesin-DM 100-10MG/5ML [Robitussin DM] 10 ml PO QID PRN #1 bottle PRN Reason: Cough Continue Sertraline HCl [Zoloft] 150 mg PO DAILY Atorvastatin Calcium [Lipitor] 10 mg PO HS Gabapentin [Neurontin] 300 mg PO TID amLODIPine [Norvasc] 10 mg PO HS Rivaroxaban [Xarelto] 20 mg PO DAILY@1700 Furosemide [Lasix] 20 mg PO BID Metoprolol Succinate (ER) [Toprol XL] 12.5 mg PO DAILY Methocarbamol [Robaxin] 500 mg PO BID clonazePAM [KlonoPIN] 0.5 mg PO HS Travoprost [Travatan Z 0.004%] 1 drop BOTH EYES HS Discharge Medication List Atorvastatin Calcium [Lipitor] 10 mg PO HS 01/28/17 [History] Gabapentin [Neurontin] 300 mg PO TID 01/28/17 [History] Sertraline HCl [Zoloft] 150 mg PO DAILY 01/28/17 [History] amLODIPine [Norvasc] 10 mg PO HS 01/28/17 [History] Rivaroxaban [Xarelto] 20 mg PO DAILY@1700 09/08/17 [History] Furosemide [Lasix] 20 mg PO BID 09/20/17 [History] Methocarbamol [Robaxin] 500 mg PO BID 01/09/19 [History] Metoprolol Succinate (ER) [Toprol XL] 12.5 mg PO DAILY 01/09/19 [History] Travoprost [Travatan Z 0.004%] 1 drop BOTH EYES HS 01/15/19 [History] clonazePAM [KlonoPIN] 0.5 mg PO HS 01/15/19 [History] Albuterol Inhaler [Ventolin Hfa Inhaler] 1 - 2 puff INHALATION RT-Q6H PRN #1 inhaler 01/17/19 [Rx] Famotidine [Pepcid] 20 mg PO BID #30 tablet 01/17/19 [Rx] Fluticasone/Vilanterol [Breo Ellipta 100-25 Mcg Inhaler] 1 inhalation PO Q24HR #1 inhaler 01/17/19 [Rx] guaiFENesin-DM 100-10MG/5ML [Robitussin DM] 10 ml PO QID PRN #1 bottle 01/17/19 [Rx] predniSONE 10 mg PO DAILY #30 tab 01/17/19 [Rx] Follow up Appointment(s)/Referral(s): Rg Barba DO [Primary Care Provider] - 3 Days Atilio Ayers MD [STAFF PHYSICIAN] - As Needed Discharge Disposition: HOME SELF-CARE
== END 2019-01-18 12:45 | disposition home or self-care (01) | DRG 202 ==
LOC: EC 08:34 → 1SOBS 10:40 → OBSVTOIN 01-17 16:28
PROVIDERS: ADMIT Hospitalist; ATTEND Hospitalist
DX: J45.41 Moderate persistent asthma with (acute) exacerbation (principal); J96.11 Chronic respiratory failure with hypoxia; E72.12 Methylenetetrahydrofolate reductase deficiency; I27.82 Chronic pulmonary embolism; E66.9 Obesity, unspecified; Z68.35 Body mass index [BMI] 35.0-35.9, adult; E78.5 Hyperlipidemia, unspecified; F41.9 Anxiety disorder, unspecified; E11.42 Type 2 diabetes mellitus with diabetic polyneuropathy; H40.9 Unspecified glaucoma; I10 Essential (primary) hypertension; I48.0 Paroxysmal atrial fibrillation; J04.0 Acute laryngitis; J44.9 Chronic obstructive pulmonary disease, unspecified; K21.9 Gastro-esophageal reflux disease without esophagitis; K43.9 Ventral hernia without obstruction or gangrene; Z79.01 Long term (current) use of anticoagulants; Z79.899 Other long term (current) drug therapy; Z82.49 Family history of ischemic heart disease and other diseases of the circulatory system; Z85.3 Personal history of malignant neoplasm of breast; Z86.718 Personal history of other venous thrombosis and embolism; Z90.11 Acquired absence of right breast and nipple; Z90.49 Acquired absence of other specified parts of digestive tract; Z90.710 Acquired absence of both cervix and uterus; Z90.81 Acquired absence of spleen; Z99.81 Dependence on supplemental oxygen; Z88.0 Allergy status to penicillin
CPT/HCPCS: 36415; 71046; 80053; 80061; 83735; 83880; 84484; 85025; 85379; 85610; 85652; 85730; 86140; 93005; 93306; 94640; 99285

== ENCOUNTER → 2019-09-08 | Outpatient (CLI) | payer MEDICARE, BC ==
[2019-09-08 09:42] LABS: Basophils # (A) 0.1 k/uL (0-0.2); Basophils % (A) 1 %; Eosinophils # (A) 0.3 k/uL (0-0.7); Eosinophils % (A) 3 %; HCT 44.8 % (34.0-46.0); HGB 13.5 gm/dL (11.4-16.0); Hypochromasia Marked; Lymphocytes # (A) 2.1 k/uL (1.0-4.8); Lymphocytes % (A) 23 %; MCH 28.5 pg (25.0-35.0); MCHC 30.2 g/dL (31.0-37.0); MCV 94.2 fL (80.0-100.0); Mean Platelet Volume 9.3; Monocytes # (A) 0.4 k/uL (0-1.0); Monocytes % (A) 4 %; Neutrophils # (A) 6.5 k/uL (1.3-7.7); Neutrophils % (A) 68 %; Platelet Count 282 k/uL (150-450); RBC 4.76 m/uL (3.80-5.40); RDW 13.8 % (11.5-15.5); WBC 9.5 k/uL (3.8-10.6)
[2019-09-08 19:20] LABS: African American GFR (CKD) 96.2 (60.0-200.0); Albumin/Globulin Ratio 1.9 (1.60-3.17); BUN/Creat Ratio 28.57 Ratio (12.00-20.00); Calcium 9.6 mg/dL (8.7-10.3); Chol/HDL Ratio 2.58; Globulin 2.1 g/dL (1.6-3.3); Magnesium 1.9 mg/dL (1.5-2.4); Potassium 4.2 mmol/L (3.5-5.5); Total Bilirubin 0.9 mg/dL (0.3-1.2); Total Protein 6.1 g/dL (6.2-8.2)
== END | disposition home or self-care (01) ==
LOC: LABWHC1 08:42
PROVIDERS: ATTEND Family Medicine
DX: I10 Essential (primary) hypertension (principal); E78.9 Disorder of lipoprotein metabolism, unspecified
CPT/HCPCS: 36415; 80053; 80061; 83735; 85025

== ENCOUNTER 2019-12-06 10:35 | Emergency (ER) | payer MEDICARE, BC ==
[2019-12-06 10:42] VITALS: TEMP 98.7
[2019-12-06] MEDS ORDERED: ONDANSETRON 4 MG/2 ML VIAL IVP STA (10:58)
[2019-12-06] MEDS ORDERED: SODIUM CHLORIDE 0.9% 1,000 ML IV STA (10:58)
[2019-12-06 11:36] LABS: Basophils # (A) 0.1 k/uL (0-0.2); Basophils % (A) 1 %; Eosinophils # (A) 0.2 k/uL (0-0.7); Eosinophils % (A) 2 %; HCT 47.8 % (34.0-46.0); HGB 14.9 gm/dL (11.4-16.0); Hypochromasia Slight; Lymphocytes % (A) 27 %; MCH 29.1 pg (25.0-35.0); MCHC 31.1 g/dL (31.0-37.0); MCV 93.7 fL (80.0-100.0); Mean Platelet Volume 9.9; Monocytes # (A) 0.5 k/uL (0-1.0); Monocytes % (A) 4 %; Neutrophils # (A) 7.4 k/uL (1.3-7.7); Neutrophils % (A) 65 %; Platelet Count 284 k/uL (150-450); RDW 13.2 % (11.5-15.5); WBC 11.3 k/uL (3.8-10.6)
[2019-12-06 11:46] LABS: Appearance,Urine Clear (Clear); Bacteria,Urine Occasional /hpf; Bilirubin,Urine Negative (Negative); Blood,Urine Small (Negative); Color,Urine Yellow; Glucose,Urine (UA) Negative (Negative); Hyaline Casts,Urine 22 /lpf (0-2); Ketones,Urine Negative (Negative); Leukocyte Esterase,Urine Moderate (Negative); Mucus,Urine Few /hpf; Nitrite,Urine Negative (Negative); Protein,Urine Trace (Negative); RBC,Urine 2 /hpf (0-5); Specific Gravity,Urine 1.022 (1.001-1.035); Squamous Epithelial Cell,Urine <1 /hpf (0-4); Urobilinogen,Urine <2.0 mg/dL (<2.0); WBC,Urine 15 /hpf (0-5)
--- NOTE | 2019-12-06 11:46 | ED ---
General Adult HPI <Saurav Swenson - Last Filed: 12/06/19 14:33> - General Source: patient Mode of arrival: wheelchair Limitations: no limitations <Hema Vides - Last Filed: 12/06/19 14:47> - General Chief complaint: Abdominal Pain Stated complaint: abd pain/nausea Time Seen by Provider: 12/06/19 10:43 - History of Present Illness Initial comments: 79-year-old female presents to the emergency room for a chief complaint of abdominal pain. Patient reports that for the past week she has had nausea on and off. States that her physician saw her about a week ago and scheduled an endoscopy in early December due to concern for ulcers. Patient is not currently taking an antacid but was supposed to be up until one year ago when she was taken off of it. Patient started to develop some generalized abdominal pain in the past couple days as well. She did feel constipated several days ago and dr inking prune juice followed by a normal stool. This morning patient had diarrhea. She has not had any fevers.Patient has no other complaints at this time including shortness of breath, chest pain, headache, or visual changes. (Hema Vides) - Related Data Home Medications Medication Instructions Recorded Confirmed Atorvastatin Calcium [Lipitor] 10 mg PO HS 01/28/17 12/06/19 Gabapentin [Neurontin] 300 mg PO TID 01/28/17 12/06/19 Sertraline HCl [Zoloft] 150 mg PO DAILY 01/28/17 12/06/19 amLODIPine [Norvasc] 10 mg PO HS 01/28/17 12/06/19 Rivaroxaban [Xarelto] 20 mg PO HS 09/08/17 12/06/19 Furosemide [Lasix] 20 mg PO BID 09/20/17 12/06/19 Metoprolol Succinate (ER) [Toprol 12.5 mg PO DAILY 01/09/19 12/06/19 XL] Travoprost [Travatan Z 0.004%] 1 drop BOTH EYES HS 01/15/19 12/06/19 Brinzolamide/Brimonidine Tart 1 drop BOTH EYES BID 12/06/19 12/06/19 [Simbrinza 1%-0.2% Eye Drops] Rivaroxaban [Xarelto] 20 mg PO HS 12/06/19 12/06/19 clonazePAM [KlonoPIN] 0.5 mg PO BID PRN 12/06/19 12/06/19 Previous Rx's Medication Instructions Recorded Cephalexin [Keflex] 500 mg PO Q12H 10 Days #20 cap 12/06/19 Ondansetron [Zofran ODT] 4 mg PO Q8HR PRN #15 tab 12/06/19 Allergies Allergy/AdvReac Type Severity Reaction Status Date / Time Penicillins Allergy Rash/Hives Verified 12/06/19 14:29 Review of Systems ROS Other: All systems not noted in ROS Statement are negative. <Saurav Swenson D - Last Filed: 12/06/19 14:33> ROS Other: All systems not noted in ROS Statement are negative. <Hema Vides P - Last Filed: 12/06/19 14:47> ROS Statement: Those systems with pertinent positive or pertinent negative responses have been documented in the HPI. 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 History of Any Multi-Drug Resistant Organisms: None Reported Past Surgical History: Appendectomy, Breast Surgery, Hysterectomy Additional Past Surgical History / Comment(s): Ross filter, pericardial window, cardiac caths, R mastectomy, colonoscopies/benign polypectomies, bowel resection for diverticulitis, spleenectomy d/t hemolytic anemia, abdominal hernia surgeries/mesh. Past Anesthesia/Blood Transfusion Reactions: No Reported Reaction Past Psychological History: Anxiety, Depression Smoking Status: Never smoker Past Alcohol Use History: None Reported Past Drug Use History: None Reported - Past Family History Mother Family Medical History: Coronary Artery Disease (CAD), Myocardial Infarction (NC) Additional Family Medical History / Comment(s): Mother had rheumatic fever. She had her first NC in her late 30s and of a NC at the age of 53 yrs. Father History Unknown: Yes Family Medical History: No Reported History Additional Family Medical History / Comment(s): Father in a traumatic accident when pt was 6 yrs old. <Hema Vides - Last Filed: 12/06/19 14:47> General Exam Limitations: no limitations General appearance: alert, in no apparent distress Head exam: Present: atraumatic, normocephalic, normal inspection Eye exam: Present: normal appearance, PERRL, EOMI. Absent: scleral icterus, conjunctival injection, periorbital swelling ENT exam: Present: normal exam, mucous membranes moist Neck exam: Present: normal inspection, full ROM. Absent: tenderness, meningismus, lymphadenopathy Respiratory exam: Present: normal lung sounds bilaterally. Absent: respiratory distress, wheezes, rales, rhonchi, stridor Cardiovascular Exam: Present: regular rate, normal rhythm, normal heart sounds. Absent: systolic murmur, diastolic murmur, rubs, gallop, clicks GI/Abdominal exam: Present: soft, tenderness (Minimal left lower quadrant tenderness.), normal bowel sounds. Absent: distended, guarding, rebound, rigid Neurological exam: Present: alert <Hema Vides P - Last Filed: 12/06/19 14:47> Course Vital Signs 12/06/19 12/06/19 10:40 12:22 Temperature 98.7 F Pulse Rate 56 L 49 L Respiratory 18 16 Rate Blood Pressure 140/63 150/62 O2 Sat by Pulse 94 L 99 Oximetry Medical Decision Making - Lab Data Result diagrams: 12/06/19 11:25 12/06/19 11:25 <Saurav Swenson - Last Filed: 12/06/19 14:33> - Lab Data Result diagrams: 12/06/19 11:25 12/06/19 11:25 <Hema Vides - Last Filed: 12/06/19 14:47> - Medical Decision Making PA attestation: I, Dr. Saurav Swenson, personally saw and examined the patient. I have reviewed and agree with the resident/PA findings, including all diagnostic interpretations and treatment plans as written unless otherwise stated. I was present for the reese portions of any procedures performed and inclusive time noted for any critical care statement. Patient was seen along side Hema Berry. Patient is 71-year-old female she presents today for abdominal pain. She states the pain is slightly located to the left abdomen. Her vital signs are stable she is well-appearing at bedside and she started rating oral intake. Her labs are unremarkable. Patient's comfortable at bedside she does not appear to be in significant pain. Benign abdominal examination. Computed tomography scan of the abdomen pelvis was obtained there were some incidental findings with a cystic right ovary that's measuring 7 x 9 cm. There is also a low anterior abdominal hernia at the right of the midline containing several loops of small bowel. No evidence for incarceration. No evidence of bowel obstruction. Pelvic ultrasound was obtained showing a 0.5 cm benign simple right ovarian cysts within except. Patient reevaluated found to be stable medical condition. Her pain seems to be more on the left side as opposed to the right side. There is no evidence of torsion that seen on the ultrasound. Clinically she does not have any torsion- like symptoms times. Case is discussed with Dr. Larose, on-call gynecology who is willing to follow-up with patient on outpatient basis. She is also advised to follow-up with her general surgeon for hernia repair. Patient understands that she has several reasons to have worsening condition and she is advised to come back to the emergency department if she has any worsening abdominal pain, intractable nausea, fevers etc. Patient is agreeable to disposition. (Saurav Swenson) - Lab Data Lab Results 12/06/19 12/06/19 12/06/19 Range/Units 11:25 11:25 11:25 WBC 11.3 H (3.8-10.6) k/uL RBC 5.10 (3.80-5.40) m/uL Hgb 14.9 (11.4-16.0) gm/dL Hct 47.8 H (34.0-46.0) % MCV 93.7 (80.0-100.0) fL MCH 29.1 (25.0-35.0) pg MCHC 31.1 (31.0-37.0) g/dL RDW 13.2 (11.5-15.5) % Plt Count 284 (150-450) k/uL Neutrophils % 65 % Lymphocytes % 27 % Monocytes % 4 % Eosinophils % 2 % Basophils % 1 % Neutrophils # 7.4 (1.3-7.7) k/uL Lymphocytes # 3.0 (1.0-4.8) k/uL Monocytes # 0.5 (0-1.0) k/uL Eosinophils # 0.2 (0-0.7) k/uL Basophils # 0.1 (0-0.2) k/uL Hypochromasia Slight Sodium 139 (137-145) mmol/L Potassium 4.1 (3.5-5.1) mmol/L Chloride 104 (98-107) mmol/L Carbon Dioxide 29 (22-30) mmol/L Anion Gap 6 mmol/L BUN 14 (7-17) mg/dL Creatinine 0.73 (0.52-1.04) mg/dL Est GFR (CKD-EPI)AfAm >90 (>60 ml/min/1.73 sqM) Est GFR (CKD-EPI)NonAf 79 (>60 ml/min/1.73 sqM) Glucose 128 H (74-99) mg/dL Plasma Lactic Acid Guillermo (0.7-2.0) mmol/L Calcium 10.3 H (8.4-10.2) mg/dL Total Bilirubin 1.1 (0.2-1.3) mg/dL AST 31 (14-36) U/L ALT 17 (4-34) U/L Alkaline Phosphatase 85 (38-126) U/L Total Protein 6.7 (6.3-8.2) g/dL Albumin 3.9 (3.5-5.0) g/dL Amylase 35 (30-110) U/L Lipase 31 (23-300) U/L Urine Color Yellow Urine Appearance Clear (Clear) Urine pH 5.0 (5.0-8.0) Ur Specific [place] 1.022 (1.001-1.035) Urine Protein Trace H (Negative) Urine Glucose (UA) Negative (Negative) Urine Ketones Negative (Negative) Urine Blood Small H (Negative) Urine Nitrite Negative (Negative) Urine Bilirubin Negative (Negative) Urine Urobilinogen <2.0 (<2.0) mg/dL Ur Leukocyte Esterase Moderate H (Negative) Urine RBC 2 (0-5) /hpf Urine WBC 15 H (0-5) /hpf Ur Squamous Epith Cells <1 (0-4) /hpf Urine Bacteria Occasional H (None) /hpf Hyaline Casts 22 H (0-2) /lpf Urine Mucus Few H (None) /hpf 12/06/19 Range/Units 11:25 WBC (3.8-10.6) k/uL RBC (3.80-5.40) m/uL Hgb (11.4-16.0) gm/dL Hct (34.0-46.0) % MCV (80.0-100.0) fL MCH (25.0-35.0) pg MCHC (31.0-37.0) g/dL RDW (11.5-15.5) % Plt Count (150-450) k/uL Neutrophils % % Lymphocytes % % Monocytes % % Eosinophils % % Basophils % % Neutrophils # (1.3-7.7) k/uL Lymphocytes # (1.0-4.8) k/uL Monocytes # (0-1.0) k/uL Eosinophils # (0-0.7) k/uL Basophils # (0-0.2) k/uL Hypochromasia Sodium (137-145) mmol/L Potassium (3.5-5.1) mmol/L Chloride (98-107) mmol/L Carbon Dioxide (22-30) mmol/L Anion Gap mmol/L BUN (7-17) mg/dL Creatinine (0.52-1.04) mg/dL Est GFR (CKD-EPI)AfAm (>60 ml/min/1.73 sqM) Est GFR (CKD-EPI)NonAf (>60 ml/min/1.73 sqM) Glucose (74-99) mg/dL Plasma Lactic Acid Guillermo 1.1 (0.7-2.0) mmol/L Calcium (8.4-10.2) mg/dL Total Bilirubin (0.2-1.3) mg/dL AST (14-36) U/L ALT (4-34) U/L Alkaline Phosphatase (38-126) U/L Total Protein (6.3-8.2) g/dL Albumin (3.5-5.0) g/dL Amylase (30-110) U/L Lipase (23-300) U/L Urine Color Urine Appearance (Clear) Urine pH (5.0-8.0) Ur Specific [place] (1.001-1.035) Urine Protein (Negative) Urine Glucose (UA) (Negative) Urine Ketones (Negative) Urine Blood (Negative) Urine Nitrite (Negative) Urine Bilirubin (Negative) Urine Urobilinogen (<2.0) mg/dL Ur Leukocyte Esterase (Negative) Urine RBC (0-5) /hpf Urine WBC (0-5) /hpf Ur Squamous Epith Cells (0-4) /hpf Urine Bacteria (None) /hpf Hyaline Casts (0-2) /lpf Urine Mucus (None) /hpf Disposition <Saurav Swenson - Last Filed: 12/06/19 14:33> Is patient prescribed a controlled substance at d/c from ED?: No Time of Disposition: 14:39 <Hema Vides P - Last Filed: 12/06/19 14:47> Clinical Impression: UTI (urinary tract infection), Ovarian cyst, Hernia, Nausea Disposition: HOME SELF-CARE Condition: Good Instructions (If sedation given, give patient instructions): Urinary Tract Infection in Women (ED) Additional Instructions: Please take Zofran as needed for nausea. Drink plenty of fluids. If you are not able to tolerate oral intake you need to return to the emergency room. Take Keflex for urinary tract infection. Please follow-up with Dr. Larose for ovarian cyst. We did speak with her from the ER and she is aware that you will be calling. Please follow-up with surgeon for hernia repair. We did give you a referral to Dr. Florence. Follow-up with your endoscopy appointment. Take Pepcid twice daily which you have at home. If you have any worsening symptoms, are not able to tolerate oral intake, or have fevers return to the emergency room. Prescriptions: Cephalexin [Keflex] 500 mg PO Q12H 10 Days #20 cap Ondansetron [Zofran ODT] 4 mg PO Q8HR PRN #15 tab PRN Reason: Nausea Referrals: Rg Barba DO [Primary Care Provider] - 1-2 days Rubi Larose MD [STAFF PHYSICIAN] - 1-2 days Alvarado Florence MD [STAFF PHYSICIAN] - 1-2 days
[2019-12-06 11:53] LABS: ALT 17 U/L (4-34); AST 31 U/L (14-36); African American GFR (CKD) >90 (>60 ml/min/1.73 sqM); Albumin 3.9 g/dL (3.5-5.0); Alkaline Phosphatase 85 U/L (38-126); Amylase 35 U/L (30-110); Anion Gap 6 mmol/L; Blood Urea Nitrogen 14 mg/dL (7-17); Calcium 10.3 mg/dL (8.4-10.2); Carbon Dioxide 29 mmol/L (22-30); Chloride 104 mmol/L (98-107); Glucose 128 mg/dL (74-99); Non-African American GFR(CKD) 79 (>60 ml/min/1.73 sqM); Potassium 4.1 mmol/L (3.5-5.1); Sodium 139 mmol/L (137-145); Total Bilirubin 1.1 mg/dL (0.2-1.3); Total Protein 6.7 g/dL (6.3-8.2)
[2019-12-06 12:23] VITALS: PULSE 49; RESP 16
--- NOTE | 2019-12-06 12:34 | CT ---
EXAMINATION TYPE: CT abdomen pelvis w con DATE OF EXAM: 12/06/2019 COMPARISON: None HISTORY: Abd pain/nausea CT DLP: 1462.9 mGycm CONTRAST: CT scan of the abdomen and pelvis is performed without Oral Contrast and with IV Contrast, patient in jected with 100 mL of Isovue 300. FINDINGS: LUNG BASES-: No visible nodule. No infiltrate. LIVER/GB: Is hepatic steatosis. The gallbladder is surgically absent. No space occupying hepatic lesi on. Biliary tree is of normal caliber. PANCREAS: No inflammation. No distinct mass. SPLEEN: Splenectomy changes with small splenule noted left upper quadrant. ADRENALS: No nodule. No thickening. KIDNEYS/BLADDER: No hydronephrosis. No nephrolithiasis. No distinct renal mass. Urinary bladder g rossly unremarkable. BOWEL: Nonvisualization of the appendix. Normal bowel caliber. No inflammation. GENITAL ORGANS: Cystic mass right ovary is nonspecific and measures 6.9 x 8.8 cm. Ultrasound correla tion is advised. Hysterectomy changes noted as well as left oophorectomy change. LYMPH NODES: No greater than 1cm abdominal or pelvic lymph nodes are appreciated. AORTA: No significant abnormality. OSSEOUS STRUCTURES: Severe degenerative change lumbar spine. OTHER: Low anterior abdominal wall hernia to the right of midline contains some several loops of smal l bowel. No evidence for incarceration. IVC filter noted to be in place. IMPRESSION: 1. Cystic mass right ovary is nonspecific and measures 6.9 x 8.8 cm. Ultrasound correlation is advise d. 2.Low anterior abdominal wall hernia to the right of midline contains some several loops of small bow el. No evidence for incarceration.
[2019-12-06] MEDS ORDERED: KETOROLAC 15 MG/ML 1 ML VIAL IVP STA (12:57)
[2019-12-06] MEDS ORDERED: METOCLOPRAMIDE 5 MG/ML 2 ML VIAL IVP STA (12:57)
[2019-12-06] MEDS ORDERED: diphenhydrAMINE 50 MG/ML 1 ML VIAL IVP STA (12:57)
--- NOTE | 2019-12-06 13:36 | US ---
EXAMINATION TYPE: US pelvic complete DATE OF EXAM: 12/06/2019 COMPARISON: CT abdomen and pelvis from earlier today CLINICAL HISTORY: mass R ovary. cystic area noted on recent CT exam, hysterectomy, left oophorectomy TECHNIQUE: Transabdominal (TA). Date of LMP: unknown EXAM MEASUREMENTS: Uterus: Surgically absent Endometrial Stripe: Surgically absent Right Ovary: 8.0 x 9.2 x 6.8cm Left Ovary: Surgically absent 1. Uterus: Surgically absent 2. Endometrium: Surgically absent 3. Right Ovary: little ovarian tissue visualized, large cystic area with septation = 7.1 x 8.5 x 6.4 cm 4. Left Ovary: Surgically absent Spectral, color and waveform doppler imaging shows arterial and venous flow within the right ovary; as visualized - limitations due to little ovarian tissue visualized 5. Bilateral Adnexa: appears wnl Uterus is surgically absent. Left ovary noted surgically absent. No free fluid in pelvis. Correlating with CT there is 7.1 x 8.5 x 0.4 cm oval slightly lobulated thin-walled cyst or cystic le dimitry with thin septa. IMPRESSION: There is a 8.5 cm benign simple right ovarian cyst with thin septa. For lesion greater th an 5 cm, follow-up either in 3-6 months for resolution/re-characterization or in 6-12 months for grow th rate assessment is advised.
[2019-12-06 14:50] VITALS: BP 163/67
[2019-12-06] MEDS ORDERED: HYDROmorphone 0.5 MG/0.5 ML SYRINGE IVP STA (14:51)
[2019-12-06] MEDS ORDERED: ACET/COD 300 MG/30 MG STARTER PACK 6 TAB BTL PO STA (14:51)
== END 2019-12-06 15:30 | disposition home or self-care (01) ==
LOC: EC 10:35
DX: N39.0 Urinary tract infection, site not specified (principal); K43.9 Ventral hernia without obstruction or gangrene; N83.201 Unspecified ovarian cyst, right side; R11.0 Nausea; F41.9 Anxiety disorder, unspecified; F32.9 Major depressive disorder, single episode, unspecified; E78.5 Hyperlipidemia, unspecified; I10 Essential (primary) hypertension; I48.0 Paroxysmal atrial fibrillation; E11.9 Type 2 diabetes mellitus without complications; J44.9 Chronic obstructive pulmonary disease, unspecified; H40.9 Unspecified glaucoma; Z79.01 Long term (current) use of anticoagulants; Z79.899 Other long term (current) drug therapy; Z88.0 Allergy status to penicillin; Z86.711 Personal history of pulmonary embolism; Z86.718 Personal history of other venous thrombosis and embolism; Z85.3 Personal history of malignant neoplasm of breast; Z98.890 Other specified postprocedural states; Z99.81 Dependence on supplemental oxygen; Z90.710 Acquired absence of both cervix and uterus; Z87.19 Personal history of other diseases of the digestive system
CPT/HCPCS: 99284 ×2; 96374 ×2; 96375 ×5; 96361 ×2; 36415; 80053; 82150; 83605; 83690; 85025; 81001; 87086; 93976; 76856; 74177; J1200; J2765; J2405; J1885; J1170; Q9967

== ENCOUNTER 2019-12-24 07:36 | Day surgery (SDC) | payer MEDICARE, BC ==
[2019-12-22 13:51] VITALS: BMI 35.5
[~2019-12-24 07:36] MED LIST changes: +LIDOCAINE 1% (10MG/ML) FOR IV START INTRADERMA PRN
[2019-12-24 08:19] VITALS: RESP 16; TEMP 97.2
[2019-12-24 08:35] LABS: Glucose,Whole Blood 125 mg/dL (75-99)
[2019-12-24] MEDS ORDERED: MIDAZOLAM 2 MG/2 ML VIAL IV ONE (08:37)
[2019-12-24] MEDS ORDERED: LIDOCAINE 1% INJ 10MG/ML (20 ML MDV) ONE (09:11)
[2019-12-24] MEDS ORDERED: PROPOFOL 10 MG/ML 20 ML VIAL IV ONE (09:11)
--- NOTE | 2019-12-24 09:25 | P.PCN ---
Date of Procedure: 12/24/19 Procedure(s) Performed: BRIEF HISTORY: Patient is a 79-year-old, pleasant, white female scheduled for an upper endoscopy as a part of evaluation of epigastric pain, nausea for the last 6 months duration. PROCEDURE PERFORMED: Esophagogastroduodenoscopy biopsy. PREOPERATIVE DIAGNOSIS: Chronic epigastric pain and chronic persistent nausea of 6 months duration. IV sedation per anesthesia. PROCEDURE: After informed consent was obtained, the patient was brought into the endoscopy unit. IV sedation was administered by Anesthesia under continuous monitoring. Initially the Olympus GIF-140 video endoscope was inserted into the mouth. Esophagus intubated without any difficulty. It was gradually advanced into the stomach and duodenum and carefully examined. The bulb and the second part of the duodenum appeared normal. The scope at this time was withdrawn to the stomach, adequately insufflated with air, and upon careful examination, mucosa of the antrum, Mild gastritis and biopsies were done from this area. The body, cardia and the fundus appeared normal. there was a large hiatal hernia noted. The scope was then withdrawn into the esophagus. The GE junction was located at 33 cm from the incisors. The esophagus appeared normal. There were no erosions or ulcerations seen and the patient tolerated the procedure well. IMPRESSION: 1. . Large hiatal hernia. 2. Mild antral gastritis. RECOMMENDATIONS: The findings of this examination were discussed with the patient as well as a family. She was advised to follow up biopsy results. He will continue with small frequent meals and started on omeprazole 20 mg daily. She was briefly educated about antireflux measures.. 79
[2019-12-24 09:43] VITALS: BP 154/57; PULSE 44
== END 2019-12-24 10:00 | disposition home or self-care (01) ==
LOC: ORWHC2ENDO 07:36
PROVIDERS: ATTEND Internal Medicine Gastroenterology
DX: K29.50 Unspecified chronic gastritis without bleeding (principal); K44.9 Diaphragmatic hernia without obstruction or gangrene; I10 Essential (primary) hypertension; E78.5 Hyperlipidemia, unspecified; I48.91 Unspecified atrial fibrillation; J44.9 Chronic obstructive pulmonary disease, unspecified; F32.9 Major depressive disorder, single episode, unspecified; K21.9 Gastro-esophageal reflux disease without esophagitis; Z90.710 Acquired absence of both cervix and uterus; Z98.890 Other specified postprocedural states; Z79.01 Long term (current) use of anticoagulants; Z79.899 Other long term (current) drug therapy; Z88.0 Allergy status to penicillin
CPT/HCPCS: 88305; 43239; J2250; J2001; J2704

== ENCOUNTER 2020-02-09 07:18 | Observation (INO) | payer MEDICARE, BC ==
[2020-02-09] MEDS ORDERED: SODIUM CHLORIDE 0.9% 1,000 ML IV STA (07:40)
--- NOTE | 2020-02-09 07:42 | ED ---
General Adult HPI - General Chief complaint: Chest Pain Stated complaint: Dizziness and palpitations Time Seen by Provider: 02/09/20 07:25 Source: patient Mode of arrival: ambulatory Limitations: no limitations - History of Present Illness Initial comments: Patient is a 79-year-old female with past medical history A. fib, diabetes, hypertension presents emergency Department with reported the patient in chest pain. Patient states that for the past week she has had lightheadedness and palpitations, especially when she lays down. She also reports to right-sided chest wall pain. Pain is been intermittent numbness bothered her last night. Reports when she gets up to ambulate she feels as if she is going to pass out. She sees Dr. Bailey from cardiology. He took her off of the Toprol approximately one week ago. States that she is scheduled to wear a Holter monitor and had an echo next week. Patient denies any nausea or vomiting. No abdominal pain. Denies any changes in her bowel or bladder habits. No recent fevers or chills. Denies cough. She is on anticoagulation has not missed any doses. No other alleviating, precipitating or modifying factors - Related Data Home Medications Medication Instructions Recorded Confirmed Atorvastatin Calcium [Lipitor] 10 mg PO HS 01/28/17 02/09/20 Gabapentin [Neurontin] 300 mg PO TID 01/28/17 02/09/20 Sertraline HCl [Zoloft] 150 mg PO DAILY 01/28/17 02/09/20 amLODIPine [Norvasc] 10 mg PO DAILY 01/28/17 02/09/20 Travoprost [Travatan Z 0.004%] 1 drop BOTH EYES HS 01/15/19 02/09/20 Brinzolamide/Brimonidine Tart 1 drop BOTH EYES BID 12/06/19 02/09/20 [Simbrinza 1%-0.2% Eye Drops] Rivaroxaban [Xarelto] 20 mg PO HS 12/06/19 02/09/20 clonazePAM [KlonoPIN] 0.5 mg PO BID 12/06/19 02/09/20 Albuterol Nebulized [Ventolin 2.5 mg INHALATION RT-QID PRN 02/09/20 02/09/20 Nebulized] Omeprazole 20 mg PO BID 11/18/20 11/18/20 Previous Rx's Medication Instructions Recorded Chlorthalidone [Hygroton] 25 mg PO DAILY #30 tab 02/10/20 Losartan [Cozaar] 50 mg PO DAILY #30 tab 02/10/20 Allergies Allergy/AdvReac Type Severity Reaction Status Date / Time Penicillins Allergy Rash/Hives Verified 02/09/20 08:34 Review of Systems ROS Statement: Those systems with pertinent positive or pertinent negative responses have been documented in the HPI. ROS Other: All systems not noted in ROS Statement are negative. 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 History of Any Multi-Drug Resistant Organisms: None Reported Past Surgical History: Appendectomy, Breast Surgery, Hysterectomy Additional Past Surgical History / Comment(s): Ross filter, pericardial window, cardiac caths, R mastectomy, colonoscopies/benign polypectomies, bowel resection for diverticulitis, spleenectomy d/t hemolytic anemia, abdominal hernia surgeries/mesh. Past Anesthesia/Blood Transfusion Reactions: No Reported Reaction Past Psychological History: Anxiety, Depression Smoking Status: Never smoker Past Alcohol Use History: None Reported Past Drug Use History: None Reported - Past Family History Mother Family Medical History: Coronary Artery Disease (CAD), Myocardial Infarction (MD) Additional Family Medical History / Comment(s): Mother had rheumatic fever. She had her first MD in her late 30s and of a MD at the age of 53 yrs. Father History Unknown: Yes Family Medical History: No Reported History Additional Family Medical History / Comment(s): Father in a traumatic accident when pt was 6 yrs old. General Exam Limitations: no limitations General appearance: alert, in no apparent distress Head exam: Present: atraumatic, normocephalic, normal inspection Eye exam: Present: normal appearance, PERRL, EOMI. Absent: scleral icterus, conjunctival injection, periorbital swelling ENT exam: Present: normal exam, mucous membranes moist Neck exam: Present: normal inspection. Absent: tenderness, meningismus, lymphadenopathy Respiratory exam: Present: normal lung sounds bilaterally. Absent: respiratory distress, wheezes, rales, rhonchi, stridor Cardiovascular Exam: Present: regular rate, normal rhythm, normal heart sounds. Absent: systolic murmur, diastolic murmur, rubs, gallop, clicks GI/Abdominal exam: Present: soft, normal bowel sounds. Absent: distended, tenderness, guarding, rebound, rigid Extremities exam: Present: normal inspection, full ROM, normal capillary refill. Absent: tenderness, pedal edema, joint swelling, calf tenderness Back exam: Present: normal inspection Neurological exam: Present: alert, oriented X3, CN II-XII intact Psychiatric exam: Present: normal affect, normal mood Skin exam: Present: warm, dry, intact, normal color. Absent: rash Course Vital Signs 02/09/20 02/09/20 02/09/20 07:24 08:09 08:59 Temperature 98.4 F Pulse Rate 52 L 57 L Pulse Rate [ 52 L Sitting] Pulse Rate [ 64 Standing] Pulse Rate [ 49 L Supine] Respiratory 16 16 Rate Blood Pressure 95/68 145/65 Blood Pressure 171/72 [Sitting] Blood Pressure 145/65 [Standing] Blood Pressure 158/76 [Supine] O2 Sat by Pulse 97 97 Oximetry 02/09/20 09:51 Temperature 98.1 F Pulse Rate Pulse Rate [ Sitting] Pulse Rate [ Standing] Pulse Rate [ Supine] Respiratory Rate Blood Pressure Blood Pressure [Sitting] Blood Pressure [Standing] Blood Pressure [Supine] O2 Sat by Pulse Oximetry EKG Findings - EKG Comments: EKG Findings:: EKG demonstrates a sinus bradycardia with a ventricular rate of 50. ID interval 166. QRS 100. QTC 459. No acute ST segment elevations or depressions concerning for ischemic changes Medical Decision Making - Medical Decision Making Upon arrival patient is placed into room 15. A thorough history and physical exam was performed. 12-lead EKG was performed. Patient has orthostatics performed which were positive. Laboratory studies were conducted. Potassium low at 3.2 which was replaced. Chest x-ray demonstrates patchy infiltrate right medial lung base. Patient denies any infectious signs. At this time I recommended hospitalization for chest pain, presyncope with orthostatic hypotension. Discussed case with Dr. Ashraf who accepted admission. Patient was taken to the floor in stable condition - Lab Data Result diagrams: 02/10/20 08:47 02/10/20 08:47 Lab Results 02/09/20 02/09/20 02/09/20 Range/Units 07:46 07:46 07:46 WBC 9.4 (3.8-10.6) k/uL RBC 4.71 (3.80-5.40) m/uL Hgb 14.3 (11.4-16.0) gm/dL Hct 44.5 (34.0-46.0) % MCV 94.6 (80.0-100.0) fL MCH 30.3 (25.0-35.0) pg MCHC 32.0 (31.0-37.0) g/dL RDW 12.7 (11.5-15.5) % Plt Count 284 (150-450) k/uL MPV 9.2 Neutrophils % 69 % Lymphocytes % 22 % Monocytes % 4 % Eosinophils % 3 % Basophils % 1 % Neutrophils # 6.5 (1.3-7.7) k/uL Lymphocytes # 2.1 (1.0-4.8) k/uL Monocytes # 0.4 (0-1.0) k/uL Eosinophils # 0.3 (0-0.7) k/uL Basophils # 0.1 (0-0.2) k/uL PT 13.6 H (9.0-12.0) sec INR 1.4 H (<1.2) APTT 28.3 (22.0-30.0) sec Sodium (137-145) mmol/L Potassium (3.5-5.1) mmol/L Chloride (98-107) mmol/L Carbon Dioxide (22-30) mmol/L Anion Gap mmol/L BUN (7-17) mg/dL Creatinine (0.52-1.04) mg/dL Est GFR (CKD-EPI)AfAm (>60 ml/min/1.73 sqM) Est GFR (CKD-EPI)NonAf (>60 ml/min/1.73 sqM) Glucose (74-99) mg/dL Calcium (8.4-10.2) mg/dL Magnesium (1.6-2.3) mg/dL Total Bilirubin (0.2-1.3) mg/dL AST (14-36) U/L ALT (4-34) U/L Alkaline Phosphatase (38-126) U/L Troponin I (0.000-0.034) ng/mL Total Protein (6.3-8.2) g/dL Albumin (3.5-5.0) g/dL TSH (0.465-4.680) mIU/L Urine Color Light Yellow Urine Appearance Clear (Clear) Urine pH 7.0 (5.0-8.0) Ur Specific [place] 1.006 (1.001-1.035) Urine Protein Negative (Negative) Urine Glucose (UA) Negative (Negative) Urine Ketones Negative (Negative) Urine Blood Negative (Negative) Urine Nitrite Negative (Negative) Urine Bilirubin Negative (Negative) Urine Urobilinogen <2.0 (<2.0) mg/dL Ur Leukocyte Esterase Negative (Negative) 02/09/20 02/09/20 Range/Units 07:46 07:46 WBC (3.8-10.6) k/uL RBC (3.80-5.40) m/uL Hgb (11.4-16.0) gm/dL Hct (34.0-46.0) % MCV (80.0-100.0) fL MCH (25.0-35.0) pg MCHC (31.0-37.0) g/dL RDW (11.5-15.5) % Plt Count (150-450) k/uL MPV Neutrophils % % Lymphocytes % % Monocytes % % Eosinophils % % Basophils % % Neutrophils # (1.3-7.7) k/uL Lymphocytes # (1.0-4.8) k/uL Monocytes # (0-1.0) k/uL Eosinophils # (0-0.7) k/uL Basophils # (0-0.2) k/uL PT (9.0-12.0) sec INR (<1.2) APTT (22.0-30.0) sec Sodium 142 (137-145) mmol/L Potassium 3.2 L (3.5-5.1) mmol/L Chloride 104 (98-107) mmol/L Carbon Dioxide 34 H (22-30) mmol/L Anion Gap 4 mmol/L BUN 10 (7-17) mg/dL Creatinine 0.62 (0.52-1.04) mg/dL Est GFR (CKD-EPI)AfAm >90 (>60 ml/min/1.73 sqM) Est GFR (CKD-EPI)NonAf 87 (>60 ml/min/1.73 sqM) Glucose 135 H (74-99) mg/dL Calcium 9.7 (8.4-10.2) mg/dL Magnesium 2.0 (1.6-2.3) mg/dL Total Bilirubin 1.0 (0.2-1.3) mg/dL AST 31 (14-36) U/L ALT 15 (4-34) U/L Alkaline Phosphatase 83 (38-126) U/L Troponin I 0.015 (0.000-0.034) ng/mL Total Protein 6.4 (6.3-8.2) g/dL Albumin 3.7 (3.5-5.0) g/dL TSH 1.120 (0.465-4.680) mIU/L Urine Color Urine Appearance (Clear) Urine pH (5.0-8.0) Ur Specific [place] (1.001-1.035) Urine Protein (Negative) Urine Glucose (UA) (Negative) Urine Ketones (Negative) Urine Blood (Negative) Urine Nitrite (Negative) Urine Bilirubin (Negative) Urine Urobilinogen (<2.0) mg/dL Ur Leukocyte Esterase (Negative) Disposition Clinical Impression: Chest pain, Orthostatic hypotension, Hypokalemia Disposition: ADMITTED IP TO THIS [facility] Condition: Stable Is patient prescribed a controlled substance at d/c from ED?: No Decision to Admit Reason: Admit from EC Decision Date: 02/09/20 Decision Time: 09:16
[2020-02-09 07:55] LABS: Basophils # (A) 0.1 k/uL (0-0.2); Basophils % (A) 1 %; Eosinophils # (A) 0.3 k/uL (0-0.7); Eosinophils % (A) 3 %; HCT 44.5 % (34.0-46.0); HGB 14.3 gm/dL (11.4-16.0); Lymphocytes # (A) 2.1 k/uL (1.0-4.8); Lymphocytes % (A) 22 %; MCH 30.3 pg (25.0-35.0); MCV 94.6 fL (80.0-100.0); Mean Platelet Volume 9.2; Monocytes # (A) 0.4 k/uL (0-1.0); Monocytes % (A) 4 %; Neutrophils # (A) 6.5 k/uL (1.3-7.7); Neutrophils % (A) 69 %; Platelet Count 284 k/uL (150-450); RBC 4.71 m/uL (3.80-5.40); RDW 12.7 % (11.5-15.5); WBC 9.4 k/uL (3.8-10.6)
[2020-02-09 08:04] LABS: ALT 15 U/L (4-34); AST 31 U/L (14-36); African American GFR (CKD) >90 (>60 ml/min/1.73 sqM); Albumin 3.7 g/dL (3.5-5.0); Alkaline Phosphatase 83 U/L (38-126); Anion Gap 4 mmol/L; Blood Urea Nitrogen 10 mg/dL (7-17); Calcium 9.7 mg/dL (8.4-10.2); Carbon Dioxide 34 mmol/L (22-30); Chloride 104 mmol/L (98-107); Glucose 135 mg/dL (74-99); Non-African American GFR(CKD) 87 (>60 ml/min/1.73 sqM); Potassium 3.2 mmol/L (3.5-5.1); Sodium 142 mmol/L (137-145); Total Protein 6.4 g/dL (6.3-8.2)
[2020-02-09 08:07] LABS: INR 1.4 (<1.2); Partial Thromboplastin Time 28.3 sec (22.0-30.0); Prothrombin Time 13.6 sec (9.0-12.0)
--- NOTE | 2020-02-09 08:07 | XR ---
EXAMINATION TYPE: XR chest 2V DATE OF EXAM: 02/09/2020 COMPARISON: 01/17/2019 HISTORY: Shortness of breath TECHNIQUE: Frontal and lateral views of the chest are obtained. FINDINGS: Scattered senescent parenchymal changes noted. Hyperinflation compatible with COPD. Patchy infiltrate right medial lung base may reflect underlying atelectasis or infiltrate. Heart size is stable. Mediastinal structures are stable and grossly unremarkable. No evidence for hilar prominence. Degenerative changes dorsal spine. IMPRESSION: 1. Patchy infiltrate right medial lung base may reflect underlying atelectasis or infiltrate.
[2020-02-09 08:26] LABS: Appearance,Urine Clear (Clear); Bilirubin,Urine Negative (Negative); Blood,Urine Negative (Negative); Color,Urine Light Yellow; Glucose,Urine (UA) Negative (Negative); Ketones,Urine Negative (Negative); Leukocyte Esterase,Urine Negative (Negative); Nitrite,Urine Negative (Negative); Protein,Urine Negative (Negative); Specific Gravity,Urine 1.006 (1.001-1.035); Urobilinogen,Urine <2.0 mg/dL (<2.0)
[2020-02-09] MEDS ORDERED: POTASSIUM CHLORIDE ER 20 MEQ TAB.ER PO STA (08:37)
[2020-02-09] MEDS ORDERED: NALOXONE 0.4 MG/ML 1 ML VIAL IV PRN (09:22)
[2020-02-09] MEDS ORDERED: ALBUTEROL NEBULIZED 2.5 MG/3 ML INHALATION PRN (09:28)
[2020-02-09] MEDS ORDERED: LOSARTAN 25 MG TAB PO SCH (09:30)
[2020-02-09] MEDS ORDERED: SERTRALINE 50 MG TAB PO SCH (09:30)
[2020-02-09] MEDS: amLODIPine 10 MG TAB PO SCH (10:27)
[2020-02-09] MEDS: clonazePAM 0.5 MG TAB PO SCH ×2 (10:27→20:45)
[2020-02-09] MEDS: PANTOPRAZOLE 40 MG TABLET PO SCH (10:28)
--- NOTE | 2020-02-09 11:20 | P.CRDCN ---
History of Present Illness Consult date: 02/09/20 Reason for Consult (text): Dizziness and palpitations Chief complaint: Dizziness, lightheadedness, and palpitations History of present illness: This is a pleasant 9-year-old female who follows regularly with Dr. Bailey in the office. She has history of stress cardiomyopathy in 2019, hyperlipidemia, hypertension, chronic hypoxic respiratory failure on home O2, paroxysmal atrial fibrillation, multiple PEs in the past, history of [place] filter placement, breast cancer, MTHFR gene mutation, pericardial effusion with prior pericardial window, diabetes, chronic bronchitis, anxiety. She follows with Dr. Bailey in the office, recently saw him in August of this year via telephone visit. Patient over the past couple of weeks has been experiencing some symptoms of lightheadedness and dizziness. One week ago she was advised by Dr. Bailey to discontinue the Toprol. Since then the patient states she's having more frequent episodes of dizziness and lightheadedness and she is also noticing palpitations more frequently. Because of this the patient came to the hospital for further evaluation and treatment. Her blood pressure on arrival here 95/68, heart rate in the 50s, temperature 98.4. White blood cell count 9.4, hemoglobin 14.3, platelet count 284. Sodium 142, potassium 3.2, BUN 10, creatinine 0.6. Easy and 2.0 AST and ALT were normal troponin 0.015 TSH level I.1 urinalysis negative. Chest x-ray showed a patchy infiltrate in the right medial lung which may reflect underlying atelectasis or infiltrate. EKG shows a sinus bradycardia with nonspecific ST-T wave changes. Home medications included Klonopin, Norvasc 10 mg daily, Travatan eyedrops, Zoloft, Xarelto 20 mg daily, omeprazole 20 mg twice a day losartan 25 mg daily, Neurontin Lasix 20 mg twice a day, Lipitor 10 mg at at bedtime, Simbrinza eyedrops, and albuterol when necessary. According to the patient, she was scheduled in the next one week to have an echo performed in the office as well as a monitor to be placed. Past Medical History Past Medical History: Atrial Fibrillation, Asthma, Cancer, COPD, Diabetes Mellitus, Deep Vein Thrombosis (DVT), Eye Disorder, GERD/Reflux, Hyperlipidemia, Hypertension, Pneumonia, Pulmonary Embolus (PE) Additional Past Medical History / Comment(s): Paroxysmal afib, pt had traumatic fall 08/2018 and had takoMTHFR gene mutation, PEs x3, DVTs R arm and bilateral legs, hemolytic anemia, pericardial effusion with pericardial window, NIDDM type II-diet controlled now, R breast cancer with mastectomy, bronchitis, bronchial asthma, home oxygen at 2L/NC ATC, diverticulitis with bowel resection, constipation, chronic abdominal hernia, hiatal hernia, bilateral glaucoma, frozen diaphragm History of Any Multi-Drug Resistant Organisms: None Reported Past Surgical History: Appendectomy, Breast Surgery, Hysterectomy Additional Past Surgical History / Comment(s): [place] filter, pericardial window, cardiac caths, R mastectomy, colonoscopies/benign polypectomies, bowel resection for diverticulitis, spleenectomy d/t hemolytic anemia, abdominal he rnia surgeries/mesh. Past Anesthesia/Blood Transfusion Reactions: No Reported Reaction Past Psychological History: Anxiety, Depression Additional Psychological History / Comment(s): Pt resides alone in a senior apartment. She uses oxygen at 2L/NC ATC. She has a glucometer but no supplies any longer-now diabetes is diet controlled. She uses a walker. She no longer drives, family or friends take her to appts. Smoking Status: Never smoker Past Alcohol Use History: None Reported Past Drug Use History: None Reported - Past Family History Mother Family Medical History: Coronary Artery Disease (CAD), Myocardial Infarction (MT) Additional Family Medical History / Comment(s): Mother had rheumatic fever. She had her first MT in her late 30s and of a MT at the age of 53 yrs. Father History Unknown: Yes Family Medical History: No Reported History Additional Family Medical History / Comment(s): Father in a traumatic accident when pt was 6 yrs old. Medications and Allergies Home Medications Medication Instructions Recorded Confirmed Type Atorvastatin Calcium [Lipitor] 10 mg PO HS 01/28/17 02/09/20 History Gabapentin [Neurontin] 300 mg PO TID 01/28/17 02/09/20 History Sertraline HCl [Zoloft] 150 mg PO DAILY 01/28/17 02/09/20 History amLODIPine [Norvasc] 10 mg PO DAILY 01/28/17 02/09/20 History Furosemide [Lasix] 20 mg PO BID 09/20/17 02/09/20 History Travoprost [Travatan Z 0.004%] 1 drop BOTH EYES HS 01/15/19 02/09/20 History Brinzolamide/Brimonidine Tart 1 drop BOTH EYES BID 12/06/19 02/09/20 History [Simbrinza 1%-0.2% Eye Drops] Rivaroxaban [Xarelto] 20 mg PO HS 12/06/19 02/09/20 History clonazePAM [KlonoPIN] 0.5 mg PO BID 12/06/19 02/09/20 History Albuterol Nebulized [Ventolin 2.5 mg INHALATION RT-QID PRN 02/09/20 02/09/20 History Nebulized] Losartan Potassium [Cozaar] 25 mg PO DAILY 02/09/20 02/09/20 History Omeprazole 20 mg PO BID 02/09/20 02/09/20 History Allergies Allergy/AdvReac Type Severity Reaction Status Date / Time Penicillins Allergy Rash/Hives Verified 02/09/20 08:34 Physical Exam Vitals: Vital Signs Temp Pulse Pulse Pulse Pulse Pulse Resp 02/09/20 10:34 02/09/20 10:13 97.4 F L 49 L 18 02/09/20 09:51 98.1 F 02/09/20 08:59 57 L 16 02/09/20 08:09 52 L 64 49 L 02/09/20 07:24 98.4 F 52 L 16 BP BP BP BP BP BP Pulse Ox 02/09/20 10:34 153/67 02/09/20 10:13 181/72 99 02/09/20 09:51 02/09/20 08:59 145/65 97 02/09/20 08:09 171/72 145/65 158/76 02/09/20 07:24 95/68 97 Intake and Output 02/08/20 02/09/20 02/09/20 22:59 06:59 14:59 Other: Weight 81.647 kg PHYSICAL EXAMINATION: GENERAL: 79-year-old female in no acute distress at the time of my examination HEENT: Head is atraumatic, normocephalic. Pupils equal, round. Sclera anicteric. Conjunctiva are clear. Mucous membranes of the mouth are moist. Neck is supple. There is no elevated jugular venous pressure. No carotid bruit is heard. HEART EXAMINATION: S1 S2 1 systolic murmur is heard CHEST EXAMINATION: Lungs are clear to auscultation and precussion. No chest wall tenderness is noted on palpation or with deep breathing. ABDOMEN: Soft, nontender. Bowel sounds are heard. No organomegaly noted. EXTREMITIES: 2+ peripheral pulses with trace evidence of peripheral edema and no calf tenderness noted. NEUROLOGIC patient is awake, alert and oriented 3 . . Results 02/09/20 07:46 02/09/20 07:46 Cardiac Enzymes 02/09/20 02/09/20 Range/Units 07:46 07:46 AST 31 (14-36) U/L Troponin I 0.015 (0.000-0.034) ng/mL Coagulation 02/09/20 Range/Units 07:46 PT 13.6 H (9.0-12.0) sec APTT 28.3 (22.0-30.0) sec CBC 02/09/20 Range/Units 07:46 WBC 9.4 (3.8-10.6) k/uL RBC 4.71 (3.80-5.40) m/uL Hgb 14.3 (11.4-16.0) gm/dL Hct 44.5 (34.0-46.0) % Plt Count 284 (150-450) k/uL Comprehensive Metabolic Panel 02/09/20 Range/Units 07:46 Sodium 142 (137-145) mmol/L Potassium 3.2 L (3.5-5.1) mmol/L Chloride 104 (98-107) mmol/L Carbon Dioxide 34 H (22-30) mmol/L BUN 10 (7-17) mg/dL Creatinine 0.62 (0.52-1.04) mg/dL Glucose 135 H (74-99) mg/dL Calcium 9.7 (8.4-10.2) mg/dL AST 31 (14-36) U/L ALT 15 (4-34) U/L Alkaline Phosphatase 83 (38-126) U/L Total Protein 6.4 (6.3-8.2) g/dL Albumin 3.7 (3.5-5.0) g/dL Current Medications Generic Name Dose Route Start Last Admin Trade Name Freq PRN Reason Stop Dose Admin Albuterol Sulfate 2.5 mg 02/09/20 09:28 Albuterol Nebulized 2.5 Mg/3 Ml INHALATION RT-QID PRN Shortness Of Breath Amlodipine Besylate 10 mg 02/09/20 09:30 02/09/20 10:27 Amlodipine 10 Mg Tab PO Not Given DAILY JOHNY Atorvastatin Calcium 10 mg 02/09/20 21:00 Atorvastatin 10 Mg Tab PO HS JOHNY Brimonidine Tartrate 1 drops 02/09/20 21:00 Brimonidine Tartrate 0.2% Drops 5 Ml Btl BOTH EYES BID JOHNY Clonazepam 0.5 mg 02/09/20 10:30 02/09/20 10:27 Clonazepam 0.5 Mg Tab PO Not Given BID JOHNY Dorzolamide HCl 1 drops 02/09/20 21:00 Dorzolamide Hcl 2% Drops 10 Ml Btl BOTH EYES BID JOHNY Furosemide 20 mg 02/09/20 16:00 Furosemide 20 Mg Tab PO BID@0900,1600 JOHNY Gabapentin 300 mg 02/09/20 16:00 Gabapentin 300 Mg Cap PO TID JOHNY Latanoprost 1 drops 02/09/20 21:00 Latanoprost 0.005% Ophth Drops 2.5 Ml Btl BOTH EYES HS [facility] Losartan Potassium 25 mg 02/09/20 09:30 02/09/20 10:27 Losartan 25 Mg Tab PO Not Given DAILY JOHNY Naloxone HCl 0.2 mg 02/09/20 09:22 Naloxone 0.4 Mg/Ml 1 Ml Vial IV Q2M PRN Opioid Reversal Pantoprazole Sodium 40 mg 02/09/20 09:30 02/09/20 10:28 Pantoprazole 40 Mg Tablet PO Not Given AC-BRKFST JOHNY Rivaroxaban 20 mg 02/09/20 21:00 Rivaroxaban 20 Mg Tab PO HS JOHNY Sertraline HCl 150 mg 02/09/20 09:30 02/09/20 10:27 Sertraline 50 Mg Tab PO Not Given DAILY [facility] Intake and Output 02/08/20 02/09/20 02/09/20 22:59 06:59 14:59 Other: Weight 81.647 kg Patient Weight 02/10/20 06:59 Weight 81.647 kg 02/09/20 07:46 02/09/20 07:46 EKG Interpretations (text) EKG shows a sinus bradycardia with nonspecific ST-T wave changes Assessment and Plan Plan: Assessment and plan #1 symptoms of dizziness and lightheadedness with associated palpitations. EKG shows a sinus bradycardia. Patient's Toprol was recently discontinued one week ago. TSH is normal. #2 chronic hypoxic respiratory failure on home O2 #3 history of stress cardiomyopathy in 2019 #4 paroxysmal atrial fibrillation on Xarelto for anticoagulation #5 history of PE and DVTs in the past, status post [place] filter placement #6 history of pericardial effusion with prior pericardial window in 2016 #7 hypertension #8 hyperlipidemia #9 diabetes #10 obesity #11 normal coronary arteries by cardiac catheterization performed in September 018 Plan We will order an echocardiogram with Doppler study, continue Norvasc, Lipitor, Lasix, losartan, Xarelto. We will continue to hold the patient's beta josé antonio, continue to monitor for any significant tachycardia or bradycardia arrhythmias. Check orthostatic heart rate and blood pressure every shift. Further recommendations to follow. DNP note has been reviewed, I agree with a documented findings and plan of care. Patient was seen and examined.
[2020-02-09 12:17] LABS: Glucose,Whole Blood 112 mg/dL (75-99)
[2020-02-09] MEDS: GABAPENTIN 300 MG CAP PO SCH ×2 (15:23→21:45)
[2020-02-09 15:24] VITALS: RESP 16
[2020-02-09] MEDS ORDERED: FUROSEMIDE 20 MG TAB PO SCH (16:00)
[2020-02-09 16:51] LABS: Glucose,Whole Blood 134 mg/dL (75-99)
--- NOTE | 2020-02-09 17:37 | ECHOF ---
Referral Reason:palpitations MEASUREMENTS -------- HEIGHT: 162.6 cm WEIGHT: 81.6 kg BP: RVIDd: 3.1 cm (< 3.3) IVSd: 1.1 cm (0.6 - 1.1) LVIDd: 4.3 cm (3.9 - 5.3) LVPWd: 1.0 cm (0.6 - 1.1) IVSs: 1.4 cm LVIDs: 2.8 cm LVPWs: 1.6 cm LA Diam: 4.6 cm (2.7 - 3.8) LAESV Index (A-L): 40.13 ml/m Ao Diam: 3.6 cm (2.0 - 3.7) AV Cusp: 2.0 cm (1.5 - 2.6) MV EXCURSION: 16.703 mm (> 18.000) MV EF SLOPE: 56 mm/s (70 - 150) EPSS: 0.4 cm MV E Ted: 0.84 m/s MV DecT: 297 ms MV A Ted: 0.95 m/s MV E/A Ratio: 0.88 AR PHT: 768 ms RAP: 5.00 mmHg RVSP: 46.80 mmHg FINDINGS -------- Resting bradycardia (HR<60bpm). This was a technically good study. The left ventricular size is normal. There is borderline concentric left ventricular hypertrophy. Overall left ventricular systolic function is normal with, an EF between 60 - 65 %. The right ventricle is normal in size. LA is moderately dilated 34-39 ml/m2 The right atrium is normal in size. Interatrial and interventricular septum intact. There is mild aortic valve sclerosis. There is mild aortic regurgitation. The mitral valve leaflets are mildly thickened. Mild mitral annular calcification present. Mild m itral regurgitation is present. Mild tricuspid regurgitation present. There is moderate pulmonary hypertension. The right ventric ular systolic pressure, as measured by Doppler, is 46.80mmHg. Trace/mild (physiologic) pulmonic regurgitation. The aortic root size is normal. Normal inferior vena cava with normal inspiratory collapse consistent with estimated right atrial pre ssure of 5 mmHg. There is no pericardial effusion. CONCLUSIONS -------- 1. The left ventricular size is normal. 2. There is borderline concentric left ventricular hypertrophy. 3. Overall left ventricular systolic function is normal with, an EF between 60 - 65 %. 4. LA is moderately dilated 34-39 ml/m2 5. There is mild aortic valve sclerosis. 6. There is mild aortic regurgitation. 7. The mitral valve leaflets are mildly thickened. 8. Mild mitral annular calcification present. 9. Mild mitral regurgitation is present. 10. Mild tricuspid regurgitation present. 11. There is moderate pulmonary hypertension. 12. The right ventricular systolic pressure, as measured by Doppler, is 46.80mmHg. 13. Trace/mild (physiologic) pulmonic regurgitation. 14. There is no pericardial effusion. PREVENTION SPECIALIST: Chelsie Perkins RDCS
--- NOTE | 2020-02-09 19:49 | P.HPIM ---
History of Present Illness H&P Date: 02/09/20 Chief Complaint: Dizzy History of presenting complaint: This is a 79-year-old patient of Dr. Rg Phipps. 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 Chronic stable medical conditions include MTH FR gene mutation for which patient chronically is Xarelto and patient is also had chronic PE. Other chronic stable medical conditions include GERD, hypertension, hyperlipidemia, abdominal wall he rnia, chronic hypoxic respiratory failure with oxygen at night, paroxysmal atrial fibrillation. [id number] cardiac catheterization.: Patient for 7-10 days has been feeling dizzy lightheaded. Dr. Bailey discontinued patient's metoprolol. Patient continued to feel dizzy tired all week. Other fatigue sleepy. No fever no chills. No cough. Yesterday had gone shopping and developed palpitations. Also noticed some right shoulder discomfort. Leading to precipitating her coming to the ER. Review of systems: GEN.: Tired EYES: None HEENT: None NECK: None RESPIRATORY: [As above CARDIOVASCULAR: As above GASTROINTESTINAL: None GENITOURINARY: None MUSCULOSKELETAL: Joint pains LYMPHATICS: None HEMATOLOGICAL: None PSYCHIATRY: Slightly anxious NEUROLOGICAL: Uses a walker Past medical history to include: MT HFR gene mutation, COPD, chronic pulmonary embolism, GERD, essential hypertension, hyperlipidemia, abdominal wall hernia, chronic hypoxic respiratory failure with oxygen at night, paroxysmal atrial fibrillation, left cardiac catheterization September 2018 Social history: Lives at [facility]. Does use a walker. No smoking or alcohol. Physical examination: VITAL SIGNS: 98.4, 52, 16, 95 x 68, 97% on 2 L GENERAL: BMI 35, sitting up a bit tired. EYES: Pupils equal. Conjunctiva normal. HEENT: External appearance of nose and ears normal, oral cavity grossly normal. NECK: JVD not raised; masses not palpable. HEART: First and second heart sounds are normal; no edema. LUNGS: Respiratory rate increased, diminished breath sounds prolonged expiration and wheezing. ABDOMEN: Soft, nontender, liver spleen not palpable, no masses palpable. PSYCH: Alert and oriented x3; mood and affect normal. NEUROLOGICAL: Cranial nerves grossly intact; no facial asymmetry, power and sensation grossly intact. LYMPHATICS: No lymph nodes palpable in the axilla and neck INVESTIGATIONS, reviewed in the clinical context: White count 9.4 hemoglobin 14.3 platelets 284 potassium 3.2 creatinine 0.62 UA negative EKG tracing personally reviewed by me-normal sinus rhythm with heart rate of 50 Chest x-ray film personally reviewed by me-questionable infiltrate versus venous prominence and possible right diaphragm elevation Assessment: -Patient has been feeling dizzy lightheaded for over a week. Beta josé antonio was discontinued. Continues to feel weak and tired. Found to be bradycardic. Sinus rhythm.. 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 Home medications reviewed. Cartilage he consulted. 2-D echocardiogram was ordered. Continue Xarelto. Check orthostatic. Sniff test will be ordered. Past Medical History Past Medical History: Atrial Fibrillation, Asthma, Cancer, COPD, Diabetes Mellit us, Deep Vein Thrombosis (DVT), Eye Disorder, GERD/Reflux, Hyperlipidemia, Hypertension, Pneumonia, Pulmonary Embolus (PE) Additional Past Medical History / Comment(s): Paroxysmal afib, pt had traumatic fall 08/2018 and had takoMTHFR gene mutation, PEs x3, DVTs R arm and bilateral legs, hemolytic anemia, pericardial effusion with pericardial window, NIDDM type II-diet controlled now, R breast cancer with mastectomy, bronchitis, bronchial asthma, home oxygen at 2L/NC ATC, diverticulitis with bowel resection, constipation, chronic abdominal hernia, hiatal hernia, bilateral glaucoma. History of Any Multi-Drug Resistant Organisms: None Reported Past Surgical History: Appendectomy, Breast Surgery, Hysterectomy Additional Past Surgical History / Comment(s): [place] filter, pericardial window, cardiac caths, R mastectomy, colonoscopies/benign polypectomies, bowel resection for diverticulitis, spleenectomy d/t hemolytic anemia, abdominal hernia surgeries/mesh. Past Anesthesia/Blood Transfusion Reactions: No Reported Reaction Past Psychological History: Anxiety, Depression Smoking Status: Never smoker Past Alcohol Use History: None Reported Past Drug Use History: None Reported - Past Family History Mother Family Medical History: Coronary Artery Disease (CAD), Myocardial Infarction (DE) Additional Family Medical History / Comment(s): Mother had rheumatic fever. She had her first DE in her late 30s and of a DE at the age of 53 yrs. Father History Unknown: Yes Family Medical History: No Reported History Additional Family Medical History / Comment(s): Father in a traumatic accident when pt was 6 yrs old. Medications and Allergies Home Medications Medication Instructions Recorded Confirmed Type Atorvastatin Calcium [Lipitor] 10 mg PO HS 01/28/17 02/09/20 History Gabapentin [Neurontin] 300 mg PO TID 01/28/17 02/09/20 History Sertraline HCl [Zoloft] 150 mg PO DAILY 01/28/17 02/09/20 History amLODIPine [Norvasc] 10 mg PO DAILY 01/28/17 02/09/20 History Furosemide [Lasix] 20 mg PO BID 09/20/17 02/09/20 History Travoprost [Travatan Z 0.004%] 1 drop BOTH EYES HS 01/15/19 02/09/20 History Brinzolamide/Brimonidine Tart 1 drop BOTH EYES BID 12/06/19 02/09/20 History [Simbrinza 1%-0.2% Eye Drops] Rivaroxaban [Xarelto] 20 mg PO HS 12/06/19 02/09/20 History clonazePAM [KlonoPIN] 0.5 mg PO BID 12/06/19 02/09/20 History Albuterol Nebulized [Ventolin 2.5 mg INHALATION RT-QID PRN 02/09/20 02/09/20 History Nebulized] Losartan Potassium [Cozaar] 25 mg PO DAILY 02/09/20 02/09/20 History Omeprazole 20 mg PO BID 02/09/20 02/09/20 History Allergies Allergy/AdvReac Type Severity Reaction Status Date / Time Penicillins Allergy Rash/Hives Verified 02/09/20 08:34 Physical Exam Vitals: Vital Signs Temp Pulse Pulse Pulse Pulse Pulse Resp 02/09/20 10:13 97.4 F L 49 L 18 02/09/20 09:51 98.1 F 02/09/20 08:59 57 L 16 02/09/20 08:09 52 L 64 49 L 02/09/20 07:24 98.4 F 52 L 16 BP BP BP BP BP Pulse Ox 02/09/20 10:13 181/72 99 02/09/20 09:51 02/09/20 08:59 145/65 97 02/09/20 08:09 171/72 145/65 158/76 02/09/20 07:24 95/68 97 Intake and Output 02/08/20 02/09/20 02/09/20 22:59 06:59 14:59 Other: Weight 81.647 kg Results CBC & Chem 7: 02/09/20 07:46 02/09/20 07:46 Labs: Abnormal Lab Results - Last 24 Hours (Table) 02/09/20 02/09/20 Range/Units 07:46 07:46 PT 13.6 H (9.0-12.0) sec INR 1.4 H (<1.2) Potassium 3.2 L (3.5-5.1) mmol/L Carbon Dioxide 34 H (22-30) mmol/L Glucose 135 H (74-99) mg/dL
[2020-02-09] MEDS ORDERED: LOSARTAN 25 MG TAB PO STA (19:51)
[2020-02-09] MEDS: BRIMONIDINE TARTRATE 0.2% DROPS 5 ML BTL BOTH EYES SCH (20:45)
[2020-02-09] MEDS: DORZOLAMIDE HCL 2% DROPS 10 ML BTL BOTH EYES SCH (20:45)
[2020-02-09] MEDS ORDERED: LATANOPROST 0.005% OPHTH DROPS 2.5 ML BTL BOTH EYES SCH (21:00)
[2020-02-09] MEDS ORDERED: ATORVASTATIN 10 MG TAB PO SCH (21:00)
[2020-02-09] MEDS ORDERED: RIVAROXABAN 20 MG TAB PO SCH (21:00)
[2020-02-09 21:45] LABS: Glucose,Whole Blood 122 mg/dL (75-99)
[2020-02-10 06:10] LABS: Glucose,Whole Blood 116 mg/dL (75-99)
[2020-02-10] MEDS: clonazePAM 0.5 MG TAB PO SCH (08:31)
[2020-02-10] MEDS: GABAPENTIN 300 MG CAP PO SCH (08:31)
[2020-02-10] MEDS: amLODIPine 10 MG TAB PO SCH (08:31)
[2020-02-10] MEDS: PANTOPRAZOLE 40 MG TABLET PO SCH (08:32)
[2020-02-10] MEDS: BRIMONIDINE TARTRATE 0.2% DROPS 5 ML BTL BOTH EYES SCH (08:32)
[2020-02-10] MEDS: DORZOLAMIDE HCL 2% DROPS 10 ML BTL BOTH EYES SCH (08:32)
[2020-02-10 08:56] VITALS: BP 149/71; PULSE 47; TEMP 98.1
[2020-02-10] MEDS ORDERED: LOSARTAN 50 MG TAB PO SCH (09:00)
[2020-02-10] MEDS ORDERED: CHLORTHALIDONE 25 MG TAB PO SCH (09:00)
[2020-02-10 09:56] LABS: Basophils # (A) 0.1 k/uL (0-0.2); Basophils % (A) 1 %; Eosinophils # (A) 0.3 k/uL (0-0.7); Eosinophils % (A) 3 %; HCT 46.7 % (34.0-46.0); HGB 14.7 gm/dL (11.4-16.0); Hypochromasia Slight; Lymphocytes # (A) 1.9 k/uL (1.0-4.8); Lymphocytes % (A) 20 %; MCH 30.6 pg (25.0-35.0); MCHC 31.6 g/dL (31.0-37.0); MCV 96.9 fL (80.0-100.0); Mean Platelet Volume 9.8; Monocytes # (A) 0.5 k/uL (0-1.0); Monocytes % (A) 5 %; Neutrophils # (A) 6.7 k/uL (1.3-7.7); Neutrophils % (A) 71 %; Platelet Count 284 k/uL (150-450); RBC 4.82 m/uL (3.80-5.40); RDW 12.7 % (11.5-15.5); WBC 9.5 k/uL (3.8-10.6)
[2020-02-10 10:24] LABS: African American GFR (CKD) >90 (>60 ml/min/1.73 sqM); Anion Gap 6 mmol/L; Blood Urea Nitrogen 13 mg/dL (7-17); Calcium 10.1 mg/dL (8.4-10.2); Carbon Dioxide 32 mmol/L (22-30); Chloride 103 mmol/L (98-107); Glucose 121 mg/dL (74-99); Non-African American GFR(CKD) 82 (>60 ml/min/1.73 sqM); Sodium 141 mmol/L (137-145)
--- NOTE | 2020-02-10 12:19 | PN ---
PROGRESS NOTE A 79-year-old lady who is admitted to the hospital with palpitations and bradycardia was on beta blockers coming in that had been stopped. This morning, she is feeling better. The dizziness that she has had improved. Does not have any orthostatic changes. PHYSICAL EXAM: She is comfortable at rest. Heart rate is 47 beats per minute. Blood pressure is 149/70, respiratory rate is 18. O2 saturation is 97%. Chest exam reveals good air entry bilaterally, heart exam reveals first and second heart sounds. No gallop. Exam of extremities did not reveal any edema. Peripheral pulses are felt. LABS: Show a hemoglobin of 14.7, platelet count is 284. Potassium is low at 3.2 and had been supplemented. Troponin is negative. An echocardiogram shows normal LV function. ASSESSMENT: Palpitations and dizziness. PLAN: Will ambulate her. If she is feeling better, she can be discharged home and have an event monitor to rule out significant bradycardia. MMODL / IJN: [id number] /
[2020-02-10 12:20] LABS: Glucose,Whole Blood 127 mg/dL (75-99)
--- NOTE | 2020-02-10 15:32 | FL ---
Fluoroscopy INDICATION: Right diaphragm paralysis FINDINGS: Fluoroscopy time: 21 seconds. Images obtained: 1. Right diaphragm is minimally higher than the left. With quiet breathing motion there is limited excur dimitry of the right diaphragm. Left diaphragm appears to be normal. With sniffing there is paradoxical motion of the right diaphragm. Left diaphragm has normal motion. IMPRESSIONS: 1. Paradoxical motion right diaphragm during the sniff test compatible with paralysis of the diaphrag m.
--- NOTE | 2020-02-10 23:20 | P.DS ---
Providers Date of admission: 02/09/20 09:22 Expected date of discharge: 02/10/20 Attending physician: Rhett Ashraf Consults: 02/09/20 09:25 Consult Physician Urgent Consulting Provider: [facility] Reason/Comments: acute chest pain, orthostatic hypotension Do you want consulting provider notified?: Yes Primary care physician: [facility] Hospital Course: Chief Complaint: Dizzy History of presenting complaint: This is a 79-year-old patient of Dr. Rg Phipps. 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 Chronic stable medical conditions include MTH FR gene mutation for which patient chronically is Xarelto and patient is also had chronic PE. Other chronic stable medical conditions include GERD, hypertension, hyperlipidemia, abdominal wall he rnia, chronic hypoxic respiratory failure with oxygen at night, paroxysmal atrial fibrillation. [id number] cardiac catheterization.: Patient for 7-10 days has been feeling dizzy lightheaded. Dr. Bailey discontinued patient's metoprolol. Patient continued to feel dizzy tired all week. Other fatigue sleepy. No fever no chills. No cough. Yesterday had gone shopping and developed palpitations. Also noticed some right shoulder discomfort. Leading to precipitating her coming to the ER. Patient is felt to have symptomatic bradycardia from beta blockers. Which has now been stopped for a week. Blood pressures are running high as Norvasc was added. Patient be getting a Holter monitor from cardiology. Follow up with them. Care was discussed the patient. No arrhythmias were noted. If patient remains bradycardic patient may need a pacemaker down the road. 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 Dye Tank Tender: Dr. Padmini Churchill from cardiology Physical examination: VITAL SIGNS: 98.1, 47, 16, 149 with 71, 97% 3 L GENERAL: BMI 35, sitting up a bit tired. EYES: Pupils equal. Conjunctiva normal. HEENT: External appearance of nose and ears normal, oral cavity grossly normal. NECK: JVD not raised; masses not palpable. HEART: First and second heart sounds are normal; no edema. LUNGS: Respiratory rate increased, diminished breath sounds prolonged expiration and wheezing. ABDOMEN: Soft, nontender, liver spleen not palpable, no masses palpable. PSYCH: Alert and oriented x3; mood and affect normal. NEUROLOGICAL: Cranial nerves grossly intact; no facial asymmetry, power and sensation grossly intact. LYMPHATICS: No lymph nodes palpable in the axilla and neck INVESTIGATIONS, reviewed in the clinical context: White count 9.4 hemoglobin 14.3 platelets 284 potassium 3.2 creatinine 0.62 UA negative EKG tracing personally reviewed by me-normal sinus rhythm with heart rate of 50 Chest x-ray film personally reviewed by me-questionable infiltrate versus venous prominence and possible right diaphragm elevation 2-D echocardiogram-EF 60-65%, moderate pulmonary hypertension - Assessment: -Patient has been feeling dizzy lightheaded for over a week. Beta josé antonio was discontinued. Continues to feel weak and tired. Found to be bradycardic. 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 Disposition: Home Patient Condition at Discharge: Stable Plan - Discharge Summary Discharge Rx Participant: No New Discharge Prescriptions: New Losartan [Cozaar] 50 mg PO DAILY #30 tab Chlorthalidone [Hygroton] 25 mg PO DAILY #30 tab Continue Sertraline HCl [Zoloft] 150 mg PO DAILY Atorvastatin Calcium [Lipitor] 10 mg PO HS Gabapentin [Neurontin] 300 mg PO TID amLODIPine [Norvasc] 10 mg PO DAILY Travoprost [Travatan Z 0.004%] 1 drop BOTH EYES HS clonazePAM [KlonoPIN] 0.5 mg PO BID Rivaroxaban [Xarelto] 20 mg PO HS Brinzolamide/Brimonidine Tart [Simbrinza 1%-0.2% Eye Drops] 1 drop BOTH EYES BID Omeprazole 20 mg PO BID Albuterol Nebulized [Ventolin Nebulized] 2.5 mg INHALATION RT-QID PRN PRN Reason: Shortness Of Breath Discontinued Furosemide [Lasix] 20 mg PO BID Losartan Potassium [Cozaar] 25 mg PO DAILY Discharge Medication List Atorvastatin Calcium [Lipitor] 10 mg PO HS 01/28/17 [History] Gabapentin [Neurontin] 300 mg PO TID 01/28/17 [History] Sertraline HCl [Zoloft] 150 mg PO DAILY 01/28/17 [History] amLODIPine [Norvasc] 10 mg PO DAILY 01/28/17 [History] Travoprost [Travatan Z 0.004%] 1 drop BOTH EYES HS 01/15/19 [History] Brinzolamide/Brimonidine Tart [Simbrinza 1%-0.2% Eye Drops] 1 drop BOTH EYES BID 12/06/19 [History] Rivaroxaban [Xarelto] 20 mg PO HS 12/06/19 [History] clonazePAM [KlonoPIN] 0.5 mg PO BID 12/06/19 [History] Albuterol Nebulized [Ventolin Nebulized] 2.5 mg INHALATION RT-QID PRN 02/09/20 [History] Omeprazole 20 mg PO BID 02/09/20 [History] Chlorthalidone [Hygroton] 25 mg PO DAILY #30 tab 02/10/20 [Rx] Losartan [Cozaar] 50 mg PO DAILY #30 tab 02/10/20 [Rx] Follow up Appointment(s)/Referral(s): Stefan Rivera MD [STAFF PHYSICIAN] - 02/22/20 1:00 pm (Appointment from 03/06/20 rescheduled to 02/22/20.) Rg Barba DO [Primary Care Provider] - 1-2 days
== END 2020-02-10 15:49 ==
LOC: EC 07:18 → 3NCARDOBS 09:22 → 1SOBS 16:06
PROVIDERS: ADMIT Hospitalist; ATTEND Hospitalist
DX: R42 Dizziness and giddiness (principal); R53.1 Weakness; R00.1 Bradycardia, unspecified; R07.89 Other chest pain; R00.2 Palpitations; I95.1 Orthostatic hypotension; R20.0 Anesthesia of skin; E11.9 Type 2 diabetes mellitus without complications; I10 Essential (primary) hypertension; I48.0 Paroxysmal atrial fibrillation; E72.12 Methylenetetrahydrofolate reductase deficiency; D58.9 Hereditary hemolytic anemia, unspecified; J44.9 Chronic obstructive pulmonary disease, unspecified; K21.9 Gastro-esophageal reflux disease without esophagitis; E78.5 Hyperlipidemia, unspecified; K59.00 Constipation, unspecified; H40.9 Unspecified glaucoma; F41.9 Anxiety disorder, unspecified; F32.9 Major depressive disorder, single episode, unspecified; E87.6 Hypokalemia; I27.82 Chronic pulmonary embolism; J96.11 Chronic respiratory failure with hypoxia; M25.511 Pain in right shoulder; J45.40 Moderate persistent asthma, uncomplicated; E66.9 Obesity, unspecified; Z68.35 Body mass index [BMI] 35.0-35.9, adult; K43.9 Ventral hernia without obstruction or gangrene; J98.6 Disorders of diaphragm; I27.20 Pulmonary hypertension, unspecified; Z79.01 Long term (current) use of anticoagulants; Z79.899 Other long term (current) drug therapy; Z88.0 Allergy status to penicillin; Z99.81 Dependence on supplemental oxygen; Z91.81 History of falling; Z87.01 Personal history of pneumonia (recurrent); Z86.718 Personal history of other venous thrombosis and embolism; Z85.3 Personal history of malignant neoplasm of breast; Z87.09 Personal history of other diseases of the respiratory system; Z87.19 Personal history of other diseases of the digestive system; Z86.010 Personal history of colon polyps; Z90.11 Acquired absence of right breast and nipple; Z90.49 Acquired absence of other specified parts of digestive tract; Z90.81 Acquired absence of spleen; Z90.710 Acquired absence of both cervix and uterus; Z82.49 Family history of ischemic heart disease and other diseases of the circulatory system
CPT/HCPCS: 96360; 99285; 36415; 93005; 93306; 93270; 80053; 80048; 84443; 83735; 84484; 85025 ×2; 85610; 85730; 81003; 76000; 71046; G0378 ×3

== ENCOUNTER 2020-11-16 14:06 | Inpatient (IN) | payer MEDICARE, BC ==
--- NOTE | 2020-11-16 15:05 | ED ---
SOB HPI - General Chief Complaint: Shortness of Breath Stated Complaint: Back pain, SOB, Time Seen by Provider: 11/16/20 14:10 Source: patient, family Mode of arrival: wheelchair Limitations: no limitations - History of Present Illness Initial Comments: 80 year old female past history of COPD, DVT/PE, MTHFR, paroxysmal A. fib who presents emergency Department with reported right sided flank/back pain. She also has associated shortness of breath. States his been going on for approximately 7 days. She normally wears 2 L of oxygen at night however states that she has been having to use the oxygen during the day. She denies fevers, chills or cough. No sick contacts. Has had multiple DVTs and PEs for which she is on anticoagulation and has a [place] filter. States that she's been taking her xarelto as directed without any missed doses. She denies ripping or tearing sensation to her back. No increased lower extremity swelling. Does ta ke chlorthalidone and recently had her dose decreased as she has been having issues with low blood pressure. 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 She admits that she had some chest pain 2 days ago which has resolved. No active chest pain. Shortness of breath is mostly exertional. No other alleviating, precipitating or modifying factors - Related Data Home Medications Medication Instructions Recorded Confirmed Atorvastatin Calcium [Lipitor] 10 mg PO AC-SUPPER 01/28/17 11/16/20 Gabapentin [Neurontin] 300 mg PO TID 01/28/17 11/16/20 Sertraline HCl [Zoloft] 150 mg PO DAILY 01/28/17 11/16/20 Brinzolamide/Brimonidine Tart 1 drop BOTH EYES BID 12/06/19 11/16/20 [Simbrinza 1%-0.2% Eye Drops] Rivaroxaban [Xarelto] 20 mg PO AC-SUPPER 12/06/19 11/16/20 clonazePAM [KlonoPIN] 0.5 mg PO BID 12/06/19 11/16/20 Betaxolol HCl [Betaxolol HCl 0.5% 1 drop BOTH EYES DAILY 11/16/20 11/16/20 Ophth Soln] Bimatoprost [Lumigan .01% Ophth 1 drop BOTH EYES HS 11/16/20 11/16/20 Soln] Losartan [Cozaar] 50 mg PO DAILY 11/16/20 11/16/20 Previous Rx's Medication Instructions Recorded Chlorthalidone [Hygroton] 25 mg PO DAILY@1200 #0 11/21/20 amLODIPine [Norvasc] 10 mg PO DAILY #30 tab 11/21/20 polyethylene glycoL 3350 [Miralax] 17 gm PO DAILY 11/21/20 predniSONE 10 mg PO DAILY #30 tab 11/21/20 Allergies Allergy/AdvReac Type Severity Reaction Status Date / Time Penicillins Allergy Rash/Hives Verified 11/16/20 15:32 Review of Systems ROS Statement: Those systems with pertinent positive or pertinent negative responses have been documented in the HPI. ROS Other: All systems not noted in ROS Statement are negative. 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 History of Any Multi-Drug Resistant Organisms: None Reported Past Surgical History: Appendectomy, Breast Surgery, Hysterectomy Additional Past Surgical History / Comment(s): [place] filter, pericardial window, cardiac caths, R mastectomy, colonoscopies/benign polypectomies, bowel resection for diverticulitis, spleenectomy d/t hemolytic anemia, abdominal hernia surgeries/mesh. Past Anesthesia/Blood Transfusion Reactions: No Reported Reaction Past Psychological History: Anxiety, Depression Smoking Status: Never smoker Past Alcohol Use History: None Reported Past Drug Use History: None Reported - Past Family History Mother Family Medical History: Coronary Artery Disease (CAD), Myocardial Infarction (OK) Additional Family Medical History / Comment(s): Mother had rheumatic fever. She had her first OK in her late 30s and of a OK at the age of 53 yrs. Father History Unknown: Yes Family Medical History: No Reported History Additional Family Medical History / Comment(s): Father in a traumatic accident when pt was 6 yrs old. General Exam Limitations: no limitations General appearance: alert, in no apparent distress Head exam: Present: atraumatic, normocephalic, normal inspection Eye exam: Present: normal appearance, PERRL, EOMI. Absent: scleral icterus, conjunctival injection, periorbital swelling ENT exam: Present: normal exam, mucous membranes moist Neck exam: Present: normal inspection. Absent: tenderness, meningismus, lymphadenopathy Respiratory exam: Present: normal lung sounds bilaterally. Absent: respiratory distress, wheezes, rales, rhonchi, stridor Cardiovascular Exam: Present: regular rate, normal rhythm, normal heart sounds. Absent: systolic murmur, diastolic murmur, rubs, gallop, clicks GI/Abdominal exam: Present: soft, normal bowel sounds. Absent: distended, tenderness, guarding, rebound, rigid Extremities exam: Present: normal inspection, full ROM, normal capillary refill. Absent: tenderness, pedal edema, joint swelling, calf tenderness Back exam: Present: normal inspection, CVA tenderness (R) Neurological exam: Present: alert, oriented X3, CN II-XII intact Psychiatric exam: Present: normal affect, normal mood Skin exam: Present: warm, dry, intact, normal color. Absent: rash Course Vital Signs 11/16/20 11/16/20 14:07 18:11 Temperature 97.6 F Pulse Rate 58 L 62 Respiratory 18 18 Rate Blood Pressure 103/60 176/66 O2 Sat by Pulse 94 L 96 Oximetry Medical Decision Making - Medical Decision Making Upon arrival patient is placed into room 2. A thorough history and physical exam was performed. Patient remains on 2 L of oxygen. Laboratory studies reveal a d-dimer of 0.41. Troponin 0.044. BNP 537. Chest x-ray is performed which demonstrates patchy basilar opacity on the left which is likely atelectasis. As the patient is a high-risk candidate for DVT and PE I did perform a CT of the chest which demonstrates suboptimal evaluation of the segmental and subsegmental pulmonary arteries however there is no evidence for pulmonary artery embolism in the main pulmonary artery right ulnar artery left coronary artery or proximal aspect of the bilateral lobar arteries. Patient also has cardio megaly with small bilateral pleural effusions. Because of elevated troponin I will continue the patient's Xarelto. Did recommend admission in order to trend her troponins and have cardiology evaluate her. Patient agreed to this. Spoke with Dr. Garzonu admit the patient. She was taken to the floor in stable condition - Lab Data Result diagrams: 11/18/20 12:10 11/18/20 12:10 Lab Results 11/16/20 11/16/20 11/16/20 Range/Units 15:08 15:08 15:08 WBC 9.1 (3.8-10.6) k/uL RBC 4.68 (3.80-5.40) m/uL Hgb 14.4 (11.4-16.0) gm/dL Hct 43.7 (34.0-46.0) % MCV 93.2 (80.0-100.0) fL MCH 30.7 (25.0-35.0) pg MCHC 33.0 (31.0-37.0) g/dL RDW 13.2 (11.5-15.5) % Plt Count 270 (150-450) k/uL MPV 10.2 Neutrophils % 69 % Lymphocytes % 21 % Monocytes % 6 % Eosinophils % 2 % Basophils % 1 % Neutrophils # 6.3 (1.3-7.7) k/uL Lymphocytes # 1.9 (1.0-4.8) k/uL Monocytes # 0.5 (0-1.0) k/uL Eosinophils # 0.2 (0-0.7) k/uL Basophils # 0.1 (0-0.2) k/uL PT 13.0 H (9.0-12.0) sec INR 1.3 H (<1.2) APTT 26.0 (22.0-30.0) sec D-Dimer 0.41 (<0.60) mg/L FEU Sodium 139 (137-145) mmol/L Potassium 3.8 (3.5-5.1) mmol/L Chloride 102 (98-107) mmol/L Carbon Dioxide 25 (22-30) mmol/L Anion Gap 12 mmol/L BUN 24 H (7-17) mg/dL Creatinine 1.03 (0.52-1.04) mg/dL Est GFR (CKD-EPI)AfAm 60 (>60 ml/min/1.73 sqM) Est GFR (CKD-EPI)NonAf 52 (>60 ml/min/1.73 sqM) Glucose 137 H (74-99) mg/dL Plasma Lactic Acid Guillermo (0.7-2.0) mmol/L Calcium 10.4 H (8.4-10.2) mg/dL Magnesium 1.9 (1.6-2.3) mg/dL Total Bilirubin 0.9 (0.2-1.3) mg/dL AST 23 (14-36) U/L ALT 11 (4-34) U/L Alkaline Phosphatase 68 (38-126) U/L Troponin I (0.000-0.034) ng/mL NT-Pro-B Natriuret Pep pg/mL Total Protein 6.7 (6.3-8.2) g/dL Albumin 3.7 (3.5-5.0) g/dL Urine Color Urine Appearance (Clear) Urine pH (5.0-8.0) Ur Specific Cornelius (1.001-1.035) Urine Protein (Negative) Urine Glucose (UA) (Negative) Urine Ketones (Negative) Urine Blood (Negative) Urine Nitrite (Negative) Urine Bilirubin (Negative) Urine Urobilinogen (<2.0) mg/dL Ur Leukocyte Esterase (Negative) Urine RBC (0-5) /hpf Urine WBC (0-5) /hpf 11/16/20 11/16/20 11/16/20 Range/Units 15:08 15:08 15:08 WBC (3.8-10.6) k/uL RBC (3.80-5.40) m/uL Hgb (11.4-16.0) gm/dL Hct (34.0-46.0) % MCV (80.0-100.0) fL MCH (25.0-35.0) pg MCHC (31.0-37.0) g/dL RDW (11.5-15.5) % Plt Count (150-450) k/uL MPV Neutrophils % % Lymphocytes % % Monocytes % % Eosinophils % % Basophils % % Neutrophils # (1.3-7.7) k/uL Lymphocytes # (1.0-4.8) k/uL Monocytes # (0-1.0) k/uL Eosinophils # (0-0.7) k/uL Basophils # (0-0.2) k/uL PT (9.0-12.0) sec INR (<1.2) APTT (22.0-30.0) sec D-Dimer (<0.60) mg/L FEU Sodium (137-145) mmol/L Potassium (3.5-5.1) mmol/L Chloride (98-107) mmol/L Carbon Dioxide (22-30) mmol/L Anion Gap mmol/L BUN (7-17) mg/dL Creatinine (0.52-1.04) mg/dL Est GFR (CKD-EPI)AfAm (>60 ml/min/1.73 sqM) Est GFR (CKD-EPI)NonAf (>60 ml/min/1.73 sqM) Glucose (74-99) mg/dL Plasma Lactic Acid Guillermo 1.7 (0.7-2.0) mmol/L Calcium (8.4-10.2) mg/dL Magnesium (1.6-2.3) mg/dL Total Bilirubin (0.2-1.3) mg/dL AST (14-36) U/L ALT (4-34) U/L Alkaline Phosphatase (38-126) U/L Troponin I 0.044 H* (0.000-0.034) ng/mL NT-Pro-B Natriuret Pep pg/mL Total Protein (6.3-8.2) g/dL Albumin (3.5-5.0) g/dL Urine Color Yellow Urine Appearance Cloudy H (Clear) Urine pH 5.5 (5.0-8.0) Ur Specific Cornelius 1.020 (1.001-1.035) Urine Protein 1+ H (Negative) Urine Glucose (UA) Trace H (Negative) Urine Ketones Negative (Negative) Urine Blood Small H (Negative) Urine Nitrite Negative (Negative) Urine Bilirubin Negative (Negative) Urine Urobilinogen <2.0 (<2.0) mg/dL Ur Leukocyte Esterase Large H (Negative) Urine RBC <1 (0-5) /hpf Urine WBC 3 (0-5) /hpf 11/16/ Range/Units 15:08 WBC (3.8-10.6) k/uL RBC (3.80-5.40) m/uL Hgb (11.4-16.0) gm/dL Hct (34.0-46.0) % MCV (80.0-100.0) fL MCH (25.0-35.0) pg MCHC (31.0-37.0) g/dL RDW (11.5-15.5) % Plt Count (150-450) k/uL MPV Neutrophils % % Lymphocytes % % Monocytes % % Eosinophils % % Basophils % % Neutrophils # (1.3-7.7) k/uL Lymphocytes # (1.0-4.8) k/uL Monocytes # (0-1.0) k/uL Eosinophils # (0-0.7) k/uL Basophils # (0-0.2) k/uL PT (9.0-12.0) sec INR (<1.2) APTT (22.0-30.0) sec D-Dimer (<0.60) mg/L FEU Sodium (137-145) mmol/L Potassium (3.5-5.1) mmol/L Chloride (98-107) mmol/L Carbon Dioxide (22-30) mmol/L Anion Gap mmol/L BUN (7-17) mg/dL Creatinine (0.52-1.04) mg/dL Est GFR (CKD-EPI)AfAm (>60 ml/min/1.73 sqM) Est GFR (CKD-EPI)NonAf (>60 ml/min/1.73 sqM) Glucose (74-99) mg/dL Plasma Lactic Acid Guillermo (0.7-2.0) mmol/L Calcium (8.4-10.2) mg/dL Magnesium (1.6-2.3) mg/dL Total Bilirubin (0.2-1.3) mg/dL AST (14-36) U/L ALT (4-34) U/L Alkaline Phosphatase (38-126) U/L Troponin I (0.000-0.034) ng/mL NT-Pro-B Natriuret Pep 537 pg/mL Total Protein (6.3-8.2) g/dL Albumin (3.5-5.0) g/dL Urine Color Urine Appearance (Clear) Urine pH (5.0-8.0) Ur Specific Cornelius (1.001-1.035) Urine Protein (Negative) Urine Glucose (UA) (Negative) Urine Ketones (Negative) Urine Blood (Negative) Urine Nitrite (Negative) Urine Bilirubin (Negative) Urine Urobilinogen (<2.0) mg/dL Ur Leukocyte Esterase (Negative) Urine RBC (0-5) /hpf Urine WBC (0-5) /hpf - EKG Data EKG Comments: EKG demonstrates a sinus bradycardia with a ventricular rate of 56. HI interval 164. QRS 92. QTC of 430. Q waves with some ST depression in lead 3 and aVF. No acute ST segment elevations Critical Care Time Critical Care Time: Yes Critical Care Time: 32 minutes for diagnosis of nstemi - patient continue on home anticoagulation Disposition Clinical Impression: Dyspnea, Chest pain, NSTEMI (non-ST elevated myocardial infarction) Disposition: ADMITTED IP TO THIS HOSP Condition: Stable Is patient prescribed a controlled substance at d/c from ED?: No Decision to Admit Reason: Admit from EC Decision Date: 11/16/20 Decision Time: 16:52
[2020-11-16 15:31] LABS: Albumin 3.7 g/dL (3.5-5.0); Calcium 10.4 mg/dL (8.4-10.2); Magnesium 1.9 mg/dL (1.6-2.3); Potassium 3.8 mmol/L (3.5-5.1); Total Bilirubin 0.9 mg/dL (0.2-1.3); Total Protein 6.7 g/dL (6.3-8.2)
--- NOTE | 2020-11-16 15:31 | XR ---
EXAMINATION TYPE: XR chest 2V DATE OF EXAM: 11/16/2020 COMPARISON: 02/09/2020 HISTORY: 80 year-old female shortness of breath, difficulty breathing TECHNIQUE: AP and lateral views FINDINGS: Low lung volumes with crowded vascular markings. Interstitial prominence is a chronic appearance. Mil d patchy basilar opacity on the lateral view. No pleural effusion. Heart probably borderline in size. IMPRESSION: Heart probably borderline in size, limited assessment due to hypoventilatory changes and low lung vol umes. There is some patchy basilar opacity on the lateral view probably atelectasis. Correlate to exc lude an early infiltrate.
[2020-11-16 15:37] LABS: INR 1.3 (<1.2)
[2020-11-16 15:49] LABS: Basophils # (A) 0.1 k/uL (0-0.2); Basophils % (A) 1 %; Eosinophils # (A) 0.2 k/uL (0-0.7); Eosinophils % (A) 2 %; HCT 43.7 % (34.0-46.0); HGB 14.4 gm/dL (11.4-16.0); Lymphocytes # (A) 1.9 k/uL (1.0-4.8); Lymphocytes % (A) 21 %; MCH 30.7 pg (25.0-35.0); MCV 93.2 fL (80.0-100.0); Mean Platelet Volume 10.2; Monocytes # (A) 0.5 k/uL (0-1.0); Monocytes % (A) 6 %; Neutrophils # (A) 6.3 k/uL (1.3-7.7); Neutrophils % (A) 69 %; Platelet Count 270 k/uL (150-450); RBC 4.68 m/uL (3.80-5.40); RDW 13.2 % (11.5-15.5); WBC 9.1 k/uL (3.8-10.6)
[2020-11-16 16:15] LABS: Appearance,Urine Cloudy (Clear); Bilirubin,Urine Negative (Negative); Blood,Urine Small (Negative); Color,Urine Yellow; Glucose,Urine (UA) Trace (Negative); Ketones,Urine Negative (Negative); Leukocyte Esterase,Urine Large (Negative); Nitrite,Urine Negative (Negative); PH, Urine 5.5 (5.0-8.0); Protein,Urine 1+ (Negative); RBC,Urine <1 /hpf (0-5); Urobilinogen,Urine <2.0 mg/dL (<2.0); WBC,Urine 3 /hpf (0-5)
[2020-11-16] MEDS ORDERED: NALOXONE 0.4 MG/ML 1 ML VIAL IV PRN (16:52)
[2020-11-16] MEDS ORDERED: ASPIRIN 81 MG PO STA (16:54)
--- NOTE | 2020-11-16 17:57 | CT ---
EXAMINATION TYPE: CT chest angio for PE DATE OF EXAM: 11/16/2020 COMPARISON: None HISTORY: Shortness of breath with right sided posterior chest pain TECHNIQUE: CT scan of the chest for pulmonary embolism was performed with 100 mL of Isovue-370 CT DLP: 265.2 mGycm Automated exposure control for dose reduction was used. FINDINGS: Respiratory motion causes artifact which limits evaluation. There is adequate opacification of the pulmonary trunk. Opacification of the segmental and subsegment al pulmonary arteries is suboptimal due to motion. No filling defects are seen in the interval pulmonary trunk, right or left pulmonary artery or the pr oximal aspect of the bilateral lobar arteries. Segmental and subsegmental pulmonary arteries cannot b e adequately evaluated due to motion. There is very small bilateral right greater than left pleural effusions. There are subsegmental atele ctasis. The trachea Central airways grossly patent. Few prominent mediastinal lymph nodes are noted, no pathologically enlarged lymph nodes or hilar adenopathy. Heart is enlarged in size and there is no pericardial effusion. Contrast refluxes into the inferior vena cava. Thyroid gland is heterogeneous and enlarged. There is generalized osteopenia. There are mild degenerative changes the spine and in both shoulder j oints. The spleen is not visualized in the upper abdomen. IMPRESSION: 1. SUBOPTIMAL EVALUATION OF THE SEGMENTAL AND SUBSEGMENTAL PULMONARY ARTERIES THEREFORE CANNOT EXCLUD E A SMALL PULMONARY ARTERIAL EMBOLISM. 2. NO EVIDENCE FOR PULMONARY ARTERIAL EMBOLISM IN THE MAIN PULMONARY ARTERY, RIGHT PULMONARY ARTERY, LEFT PULMONARY ARTERY OR PROXIMAL ASPECT OF THE BILATERAL LOBAR ARTERIES. 3. CARDIOMEGALY, VERY SMALL BILATERAL PLEURAL EFFUSIONS AND PERHAPS MILD PULMONARY EDEMA ALTHOUGH JOSEFINA LUATION IS EXTREMELY LIMITED DUE TO MOTION. CONTRAST REFLUXES INTO THE INFERIOR VENA CAVA. 4. BIBASILAR OPACITIES, LIKELY ON THE BASIS OF ATELECTASIS THOUGH DUE TO RESPIRATORY MOTION CANNOT EX CLUDE DEVELOPING PNEUMONIA. 5. PULMONARY TRUNK DIAMETER 3.5 CM SUGGESTS PULMONARY HYPERTENSION.
[2020-11-16] MEDS: METOPROLOL SUCCINATE (ER) 25 MG TAB.ER.24H PO SCH (19:36)
[2020-11-16] MEDS: RIVAROXABAN 20 MG TAB PO SCH (19:36)
[2020-11-16] MEDS: GABAPENTIN 300 MG CAP PO SCH (19:37)
[2020-11-16] MEDS: amLODIPine 5 MG TAB PO SCH (19:37)
[2020-11-16] MEDS: ATORVASTATIN 10 MG TAB PO SCH (19:38)
[2020-11-16] MEDS: clonazePAM 0.5 MG TAB PO SCH (19:38)
[2020-11-16] MEDS: BRIMONIDINE TARTRATE 0.2% DROPS 5 ML BTL BOTH EYES SCH (19:39)
[2020-11-16] MEDS: LATANOPROST 0.005% OPHTH DROPS 2.5 ML BTL BOTH EYES SCH (19:39)
[2020-11-16] MEDS: DORZOLAMIDE HCL 2% DROPS 10 ML BTL BOTH EYES SCH (19:39)
--- NOTE | 2020-11-16 23:39 | P.HPIM ---
History of Present Illness H&P Date: 11/16/20 Chief Complaint: Chest pain 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 Patient says that for the past 8 days she has been having pain when she takes deep breath mainly in the posterior lower chest. Pain gets worse with deep breathing. Radiates to the upper back.. Patient has been having worsening shortness of breath as well. Due to worsening symptoms presents to ER for evolution. Denied any complaints of fever or chills.. No cough or sputum production. Denied any was and leg swelling. No dizziness or lightheadedness. Patient states that her chlorthalidone dose was reduced recently and was on follow-up with cardiology due to elevated blood pressure and is being titrated. Patient follows with Dr. Bailey as outpatient and also Dr. Ayers. Chest x-ray showed heart probably borderline size. A limited assessment due to hypoventilatory changes and low lung volumes. There is some patchy basilar opacity on the lateral view probably atelectasis. Correlate to exclude Early infiltrate. EKG showed sinus bradycardia with heart rate 56 Laboratory data showed WBC 9.1 hemoglobin 14.4 and platelets 270 INR 1.3 d-dimer is 0.41 Sodium 139 potassium 3.8 chloride 102 BUN 24 and creatinine 1.03 Calcium 10.4 Troponin 0.044, 0.035 and 0.0-8 axillary abscess are not elevated and proBNP 537 urinalysis showed cloudy, small blood large leukocyte esterase and WBC is 3. Blood pressure was 103/60 and went up to 177/66 on admission. Review of Systems Constitutional: Patient denies any fever or chills . No generalized weakness or weight loss. Abdomen: Patient denied nausea vomiting and diarrhea and abdominal pain. Cardiovascular: Patient denies any chest pain or short of breath no palpitations. Respiratory: patient denied any cough is from production. Does have shortness of breath and pleuritic chest pain. Neurologic: Patient denied any numbness or tingling headache. Musculoskeletal: Patient denies any complaints of joint swelling or deformity. Skin: Negative Psychiatric: Negative Endocrine: No heat or cold intolerance. No recent weight gain. Genitourinary: No dysuria or hematuria. All other 14 point ROS negative except the above Past Medical History Past Medical History: Atrial Fibrillation, Asthma, Cancer, COPD, Diabetes Mellitus, Deep Vein Thrombosis (DVT), Eye Disorder, GERD/Reflux, Hyperlipidemia, Hypertension, Pneumonia, Pulmonary Embolus (PE) Additional Past Medical History / Comment(s): Paroxysmal afib, pt had traumatic fall 08/2018 and had takoMTHFR gene mutation, PEs x3, DVTs R arm and bilateral legs, hemolytic anemia, pericardial effusion with pericardial window, NIDDM type II-diet controlled now, R breast cancer with mastectomy, bronchitis, bronchial asthma, home oxygen at 2L/[place] ATC, diverticulitis with bowel resection, constipation, chronic abdominal hernia, hiatal hernia, bilateral glaucoma. History of Any Multi-Drug Resistant Organisms: None Reported Past Surgical History: Appendectomy, Breast Surgery, Hysterectomy Additional Past Surgical History / Comment(s): [place] filter, pericardial window, cardiac caths, R mastectomy, colonoscopies/benign polypectomies, bowel resection for diverticulitis, spleenectomy d/t hemolytic anemia, abdominal hernia surgeries/mesh. Past Anesthesia/Blood Transfusion Reactions: No Reported Reaction Past Psychological History: Anxiety, Depression Smoking Status: Never smoker Past Alcohol Use History: None Reported Past Drug Use History: None Reported - Past Family History Mother Family Medical History: Coronary Artery Disease (CAD), Myocardial Infarction ( [place]) Additional Family Medical History / Comment(s): Mother had rheumatic fever. She had her first RI in her late 30s and of a RI at the age of 53 yrs. Father History Unknown: Yes Family Medical History: No Reported History Additional Family Medical History / Comment(s): Father in a traumatic accident when pt was 6 yrs old. Medications and Allergies Home Medications Medication Instructions Recorded Confirmed Type Atorvastatin Calcium [Lipitor] 10 mg PO AC-SUPPER 01/28/17 11/16/20 History Gabapentin [Neurontin] 300 mg PO TID 01/28/17 11/16/20 History Sertraline HCl [Zoloft] 150 mg PO DAILY 01/28/17 11/16/20 History Brinzolamide/Brimonidine Tart 1 drop BOTH EYES BID 12/06/19 11/16/20 History [Simbrinza 1%-0.2% Eye Drops] Rivaroxaban [Xarelto] 20 mg PO AC-SUPPER 12/06/19 11/16/20 History clonazePAM [KlonoPIN] 0.5 mg PO BID 12/06/19 11/16/20 History Betaxolol HCl [Betaxolol HCl 0.5% 1 drop BOTH EYES DAILY 11/16/20 11/16/20 History Ophth Soln] Bimatoprost [Lumigan .01% Ophth 1 drop BOTH EYES HS 11/16/20 11/16/20 History Soln] Chlorthalidone [Hygroton] 12.5 mg PO DAILY@1200 11/16/20 11/16/20 History Losartan [Cozaar] 50 mg PO DAILY 11/16/20 11/16/20 History Metoprolol Succinate (ER) [Toprol 12.5 mg PO HS 11/16/20 11/16/20 History Xl] amLODIPine [Norvasc] 5 mg PO HS 11/16/20 11/16/20 History Allergies Allergy/AdvReac Type Severity Reaction Status Date / Time Penicillins Allergy Rash/Hives Verified 11/16/20 15:32 Physical Exam Vitals: Vital Signs Temp Pulse Pulse Resp BP BP Pulse Ox 11/16/20 18:52 98.0 F 52 L 16 177/66 96 11/16/20 18:11 62 18 176/66 96 11/16/20 14:07 97.6 F 58 L 18 103/60 94 L Intake and Output 11/16/20 11/16/20 11/16/20 06:59 14:59 22:59 Output Total 120 Balance -120 Output: Post Void Residual 120 Other: Weight 79.832 kg 79.832 kg PHYSICAL EXAMINATION: Patient is lying in the bed comfortably, no acute distress, awake alert and oriented.. HEENT: Normocephalic. Neck is supple. Pupils reactive. Nostrils clear. Oral cavity is moist. Neck reveals no JVD, carotid bruits, or thyromegaly. CHEST EXAMINATION: Trachea is central. Symmetrical expansion. Right basilar dim inished sounds with mild coarse breath sounds.. No wheezing nonlabored breathing. Catching up breath. CARDIAC: Normal S1, S2 with no gallops. No murmurs ABDOMEN: Soft. Bowel sounds normal. No organomegaly. No abdominal bruits. Extremities: reveal no edema. No clubbing or cyanosis Neurologically awake, alert, oriented x3 with well-coordinated movements. No focal deficits noted Skin: No rash or skin lesions. Psychiatric: Coperative. Nonsuicidal Musculoskeletal: No joint swelling or deformity. Normal range of motion. Results CBC & Chem 7: 11/17/20 07:33 11/17/20 07:33 Labs: Abnormal Lab Results - Last 24 Hours (Table) 11/16/20 11/16/20 11/16/20 Range/Units 15:08 15:08 15:08 PT 13.0 H (9.0-12.0) sec INR 1.3 H (<1.2) BUN 24 H (7-17) mg/dL Glucose 137 H (74-99) mg/dL Calcium 10.4 H (8.4-10.2) mg/dL Troponin I 0.044 H* (0.000-0.034) ng/mL Urine Appearance (Clear) Urine Protein (Negative) Urine Glucose (UA) (Negative) Urine Blood (Negative) Ur Leukocyte Esterase (Negative) 11/16/20 11/16/20 Range/Units 15:08 18:52 PT (9.0-12.0) sec INR (<1.2) BUN (7-17) mg/dL Glucose (74-99) mg/dL Calcium (8.4-10.2) mg/dL Troponin I 0.035 H* (0.000-0.034) ng/mL Urine Appearance Cloudy H (Clear) Urine Protein 1+ H (Negative) Urine Glucose (UA) Trace H (Negative) Urine Blood Small H (Negative) Ur Leukocyte Esterase Large H (Negative) Thrombosis Risk Factor Assmnt - DVT/VTE Prophylaxis DVT/VTE Prophylaxis: Pharmacologic Prophylaxis ordered - Choose All That Apply Any of the Below Risk Factors Present?: Yes Each Factor Represents 1 point: Obesity (BMI >25) Other Risk Factors: Yes Each Risk Factor Represents 3 Points: Age 75 years or older, History of DVT/PE Other congenital or acquired thrombophilia - If yes, enter type in comment: No Thrombosis Risk Factor Assessment Total Risk Factor Score: 7 Thrombosis Risk Factor Assessment Level: High Risk Assessment and Plan Assessment: Pleuritic chest pain likely due to atelectasis. Mildly elevated troponin level. Unlikely ACS. Cranial down now. Small bilateral pleural effusions and mild pulmonary edema on CTA chest. Uncontrolled hypertension Paroxysmal atrial fibrillation on anticoagulation with Eliquis History of DVT/PE. Status post IVC filter placement History of MPHR forging mutation History of right breast cancer with mastectomy Chronic hypoxic respiratory failure on home oxygen 2 L via nasal cannula Bilateral glaucoma Anxiety/depression DVT prophylaxis patient is already on xarelto Plan: Patient will be continued on telemetry monitoring. Serial EKGs and troponins 3. Troponin level is trending down now. Continue with incentive spirometry. CT angiogram showed no evidence of pulmonary embolism. D-dimer is not elevated. Continue with home blood pressure medications and titrate as needed. Continue to follow closely and pulmonary and cardiology was consulted. Time with Patient: Greater than 30
[2020-11-17] MEDS ORDERED: KETOROLAC 15 MG/ML 1 ML VIAL IVP STA (08:13)
[2020-11-17 08:22] LABS: Calcium 10.4 mg/dL (8.4-10.2); Potassium 3.8 mmol/L (3.5-5.1)
[2020-11-17 08:29] LABS: Basophils # (A) 0.1 k/uL (0-0.2); Basophils % (A) 1 %; Eosinophils # (A) 0.6 k/uL (0-0.7); Eosinophils % (A) 5 %; HCT 43.4 % (34.0-46.0); HGB 14.4 gm/dL (11.4-16.0); Lymphocytes # (A) 2.5 k/uL (1.0-4.8); Lymphocytes % (A) 20 %; MCH 31.3 pg (25.0-35.0); MCHC 33.1 g/dL (31.0-37.0); MCV 94.6 fL (80.0-100.0); Mean Platelet Volume 9.9; Monocytes # (A) 0.6 k/uL (0-1.0); Monocytes % (A) 5 %; Neutrophils # (A) 8.7 k/uL (1.3-7.7); Neutrophils % (A) 69 %; Platelet Count 337 k/uL (150-450); RBC 4.59 m/uL (3.80-5.40); RDW 13.1 % (11.5-15.5); WBC 12.6 k/uL (3.8-10.6)
[2020-11-17] MEDS ORDERED: LOSARTAN 50 MG TAB PO SCH (09:00)
[2020-11-17] MEDS ORDERED: DOBUTamine DRIP for NUC MED 500 MG in DEXTROSE/WATER 1 250ML.BAG IV PRN (09:13)
[2020-11-17] MEDS: clonazePAM 0.5 MG TAB PO SCH ×2 (09:45→21:05)
[2020-11-17] MEDS: GABAPENTIN 300 MG CAP PO SCH ×3 (09:45→21:04)
[2020-11-17] MEDS: SERTRALINE 50 MG TAB PO SCH (09:45)
[2020-11-17] MEDS: DORZOLAMIDE HCL 2% DROPS 10 ML BTL BOTH EYES SCH ×2 (10:32→21:06)
[2020-11-17] MEDS: TIMOLOL 0.5% OPHTH DROPS 5 ML BTL BOTH EYES SCH (10:32)
[2020-11-17] MEDS: BRIMONIDINE TARTRATE 0.2% DROPS 5 ML BTL BOTH EYES SCH ×2 (10:33→21:07)
[2020-11-17] MEDS: CHLORTHALIDONE 25 MG TAB PO SCH (11:31)
--- NOTE | 2020-11-17 12:31 | P.CRDCN ---
History of Present Illness Consult date: 11/17/20 History of present illness: HISTORY OF PRESENT ILLNESS: This is a 80-year-old female with a past medical history significant for COPD with home oxygen use, paroxysmal atrial fibrillation, moderate aortic regurgitation, hypertension, and hyperlipidemia. Patient follows in the office with Dr. Rivera. We have been asked to see the patient in consultation for abnormal troponins. Patient examined at the bedside. Patient presented to the hospital with a chief complaint of right flank and back pain for the past week. Patient also reports shortness of breath with exertion for the past week. She states that she wears oxygen at night but over the last week she has been wearing oxygen during the day while when she is walking from room to room in her house due to increased shortness of breath. The patient states she actually feels pretty decent this morning and does not feel short of breath. She states she has been up walking to the bathroom and has done relatively well. She reports having an episode of chest pain 2 days ago that woke her up from a sleep. She states the pain was on the left side of her chest and felt like a pressure sensation. She states it lasted for a couple minutes and then went away on its own. EKG reveals sinus bradycardia with no signs of acute ischemia Chest xray heart probably borderline in size. Patchy basilar opacities at the left lateral view likely atelectasis. Correlate to exclude an early infiltrate Chest CTA: Negative for pulmonary embolism Laboratory data: WBC 12.6. Hemoglobin 14.4. Platelet count 337. Sodium 144. Potassium 3.8. BUN 25. Creatinine 0.85. ProBNP 537. Troponin 0.044. 0.035. 0.028. Current home cardiac medications include amlodipine 5 mg at night, Xarelto 20 mg daily, metoprolol succinate 12.5 mg at night, losartan 50 mg daily, chlorthalidone 12.5 mg daily, and atorvastatin 10 mg daily Most recent echocardiogram obtained in March 2020 revealed normal LV systolic function with [id number] aortic regurgitation Cardiac catheterization history: September 2017 revealing normal coronary arteries REVIEW OF SYSTEMS: At the time of my exam: CONSTITUTIONAL: Denies fever or chills. HEENT: Denies blurred vision, vision changes, or eye pain. Denies hemoptysis CARDIOVASCULAR: Denies chest pain. Denies orthopnea. Denies PND. Denies palpitations RESPIRATORY: Denies shortness of breath. GASTROINTESTINAL: Denies abdominal pain. Denies nausea or vomiting. HEMATOLOGIC: Denies bleeding disorders. GENITOURINARY: Denies any blood in urine. SKIN: Denies pruitis. Denies rash. PHYSICAL EXAM: VITAL SIGNS: Reviewed. GENERAL: Well-developed in no acute distress. HEENT: Head is normocephalic. Pupils are equal, round. Sclerae anicteric. Mucous membranes of the mouth are moist. Neck supple. No JVD or thyromegaly LUNGS: Respirations even and unlabored. Lungs diminished to auscultation bilaterally. HEART: Regular rate and rhythm. S1 and S2 heard. Diastolic murmur noted ABDOMEN: Soft. Nondistended. Nontender. EXTREMITIES: Normal range of motion. No clubbing or cyanosis. Peripheral pulses intact. No lower extremity edema NEUROLOGIC: Awake and alert. Oriented x 3. ASSESSMENT: Dyspnea on exertion 1 week Paroxysmal atrial fibrillation, on anticoagulation with Xarelto Abnormal troponins, not suggestive of acute coronary syndrome COPD with home oxygen use Moderate aortic regurgitation Hypertension Hyperlipidemia PLAN: Resume home cardiac medications Obtain 2-D echo to assess cardiac structure and function Patient to undergo dobutamine stress test today Further recommendations pending patient's course Nurse practitioner note has been reviewed by physician. Signing provider agrees with the documented findings, assessment, and plan of care. Past Medical History Past Medical History: Atrial Fibrillation, Asthma, Cancer, COPD, Diabetes Mellitus, Deep Vein Thrombosis (DVT), Eye Disorder, GERD/Reflux, Hyperlipidemia, Hypertension, Pneumonia, Pulmonary Embolus (PE) Additional Past Medical History / Comment(s): Paroxysmal afib, pt had traumatic fall 08/2018 and had takoMTHFR gene mutation, PEs x3, DVTs R arm and bilateral legs, hemolytic anemia, pericardial effusion with pericardial window, NIDDM type II-diet controlled now, R breast cancer with mastectomy, bronchitis, bronchial asthma, home oxygen at 2L/NC ATC, diverticulitis with bowel resection, consti pation, chronic abdominal hernia, hiatal hernia, bilateral glaucoma. History of Any Multi-Drug Resistant Organisms: None Reported Past Surgical History: Appendectomy, Breast Surgery, Hysterectomy Additional Past Surgical History / Comment(s): [place] filter, pericardial window, cardiac caths, R mastectomy, colonoscopies/benign polypectomies, bowel resection for diverticulitis, spleenectomy d/t hemolytic anemia, abdominal hernia surgeries/mesh. Past Anesthesia/Blood Transfusion Reactions: No Reported Reaction Past Psychological History: Anxiety, Depression Smoking Status: Never smoker Past Alcohol Use History: None Reported Past Drug Use History: None Reported - Past Family History Mother Family Medical History: Coronary Artery Disease (CAD), Myocardial Infarction (KS) Additional Family Medical History / Comment(s): Mother had rheumatic fever. She had her first KS in her late 30s and of a KS at the age of 53 yrs. Father History Unknown: Yes Family Medical History: No Reported History Additional Family Medical History / Comment(s): Father in a traumatic accident when pt was 6 yrs old. Medications and Allergies Home Medications Medication Instructions Recorded Confirmed Type Atorvastatin Calcium [Lipitor] 10 mg PO AC-SUPPER 01/28/17 11/16/20 History Gabapentin [Neurontin] 300 mg PO TID 01/28/17 11/16/20 History Sertraline HCl [Zoloft] 150 mg PO DAILY 01/28/17 11/16/20 History Brinzolamide/Brimonidine Tart 1 drop BOTH EYES BID 12/06/19 11/16/20 History [Simbrinza 1%-0.2% Eye Drops] Rivaroxaban [Xarelto] 20 mg PO AC-SUPPER 12/06/19 11/16/20 History clonazePAM [KlonoPIN] 0.5 mg PO BID 12/06/19 11/16/20 History Betaxolol HCl [Betaxolol HCl 0.5% 1 drop BOTH EYES DAILY 11/16/20 11/16/20 History Ophth Soln] Bimatoprost [Lumigan .01% Ophth 1 drop BOTH EYES HS 11/16/20 11/16/20 History Soln] Chlorthalidone [Hygroton] 12.5 mg PO DAILY@1200 11/16/20 11/16/20 History Losartan [Cozaar] 50 mg PO DAILY 11/16/20 11/16/20 History Metoprolol Succinate (ER) [Toprol 12.5 mg PO HS 11/16/20 11/16/20 History Xl] amLODIPine [Norvasc] 5 mg PO HS 11/16/20 11/16/20 History Allergies Allergy/AdvReac Type Severity Reaction Status Date / Time Penicillins Allergy Rash/Hives Verified 11/16/20 15:32 Physical Exam Vitals: Vital Signs Temp Pulse Pulse Resp BP BP Pulse Ox 11/17/20 11:32 98.2 F 43 L 18 123/60 94 L 11/17/20 08:00 98.4 F 56 L 18 165/73 95 11/17/20 03:50 98 F 61 18 154/66 98 11/16/20 23:05 97.9 F 41 L 17 120/71 97 11/16/20 19:30 98.4 F 50 L 18 147/53 98 11/16/20 18:52 98.0 F 52 L 16 177/66 96 11/16/20 18:11 62 18 176/66 96 11/16/20 14:07 97.6 F 58 L 18 103/60 94 L Intake and Output 11/16/20 11/17/20 11/17/20 22:59 06:59 14:59 Intake Total 24 Output Total 120 600 200 Balance -120 -600 -176 Intake: IV 24 Invasive Line 1 14 Invasive Line 2 10 Output: Urine 600 200 Post Void Residual 120 Other: Voiding Method Toilet Toilet Weight 79.832 kg 80.3 kg Results 11/17/20 07:33 11/17/20 07:33 Cardiac Enzymes 11/16/20 11/16/20 11/16/20 Range/Units 15:08 15:08 18:52 AST 23 (14-36) U/L Troponin I 0.044 H* 0.035 H* (0.000-0.034) ng/mL 11/16/20 Range/Units 20:50 AST (14-36) U/L Troponin I 0.028 (0.000-0.034) ng/mL Coagulation 11/16/20 Range/Units 15:08 PT 13.0 H (9.0-12.0) sec APTT 26.0 (22.0-30.0) sec CBC 11/16/20 11/17/20 Range/Units 15:08 07:33 WBC 9.1 12.6 H (3.8-10.6) k/uL RBC 4.68 4.59 (3.80-5.40) m/uL Hgb 14.4 14.4 (11.4-16.0) gm/dL Hct 43.7 43.4 (34.0-46.0) % Plt Count 270 337 (150-450) k/uL Comprehensive Metabolic Panel 11/16/20 11/17/20 Range/Units 15:08 07:33 Sodium 139 144 (137-145) mmol/L Potassium 3.8 3.8 (3.5-5.1) mmol/L Chloride 102 101 (98-107) mmol/L Carbon Dioxide 25 36 H (22-30) mmol/L BUN 24 H 25 H (7-17) mg/dL Creatinine 1.03 0.85 (0.52-1.04) mg/dL Glucose 137 H 121 H (74-99) mg/dL Calcium 10.4 H 10.4 H (8.4-10.2) mg/dL AST 23 (14-36) U/L ALT 11 (4-34) U/L Alkaline Phosphatase 68 (38-126) U/L Total Protein 6.7 (6.3-8.2) g/dL Albumin 3.7 (3.5-5.0) g/dL Current Medications Generic Name Dose Route Start Last Admin Trade Name Niteshq PRN Reason Stop Dose Admin Amlodipine Besylate 5 mg 11/16/20 21:00 11/16/20 19:37 Amlodipine 5 Mg Tab PO 5 mg HS JOHNY Administration Atorvastatin Calcium 10 mg 11/16/20 18:15 11/16/20 19:38 Atorvastatin 10 Mg Tab PO 10 mg AC-SUPPER JOHNY Administration Brimonidine Tartrate 1 drops 11/16/20 21:00 11/17/20 10:33 Brimonidine Tartrate 0.2% Drops 5 Ml Btl BOTH EYES 1 drops BID JOHNY Administration Chlorthalidone 12.5 mg 11/17/20 12:00 11/17/20 11:31 Chlorthalidone 25 Mg Tab PO 12.5 mg DAILY@1200 JOHNY Administration Clonazepam 0.5 mg 11/16/20 21:00 11/17/20 09:45 Clonazepam 0.5 Mg Tab PO 0.5 mg BID JOHNY Administration Dorzolamide HCl 1 drops 11/16/20 21:00 11/17/20 10:32 Dorzolamide Hcl 2% Drops 10 Ml Btl BOTH EYES 1 drops BID JOHNY Administration Gabapentin 300 mg 11/16/20 22:00 11/17/20 09:45 Gabapentin 300 Mg Cap PO 300 mg TID JOHNY Administration Dobutamine HCl/Dextrose 500 mg 250 mls @ 24.09 mls/hr 11/17/20 09:13 / IV Solution IV 11/17/20 13:13 .[id number] PRN Per Protocol Protocol 10 MCG/KG/MIN Latanoprost 1 drops 11/16/20 21:00 11/16/20 19:39 Latanoprost 0.005% Ophth Drops 2.5 Ml Btl BOTH EYES 1 drops HS JOHNY Administration Losartan Potassium 50 mg 11/17/20 22:10 Losartan 50 Mg Tab PO HS JOHNY Metoprolol Succinate 12.5 mg 11/16/20 21:00 11/16/20 19:36 Metoprolol Succinate (Er) 25 Mg Tab.Er.24h PO 12.5 mg HS JOHNY Administration Naloxone HCl 0.2 mg 11/16/20 16:52 Naloxone 0.4 Mg/Ml 1 Ml Vial IV Q2M PRN Opioid Reversal Rivaroxaban 20 mg 11/16/20 18:15 11/16/20 19:36 Rivaroxaban 20 Mg Tab PO 20 mg AC-SUPPER JOHNY Administration Protocol Sertraline HCl 150 mg 11/17/20 09:00 11/17/20 09:45 Sertraline 50 Mg Tab PO 150 mg DAILY JOHNY Administration Timolol Maleate 1 drops 11/17/20 09:00 11/17/20 10:32 Timolol 0.5% Ophth Drops 5 Ml Btl BOTH EYES 1 drops DAILY JOHNY Administration Intake and Output 11/16/20 11/17/20 11/17/20 22:59 06:59 14:59 Intake Total 24 Output Total 120 600 200 Balance -120 -600 -176 Intake: IV 24 Invasive Line 1 14 Invasive Line 2 10 Output: Urine 600 200 Post Void Residual 120 Other: Voiding Method Toilet Toilet Weight 79.832 kg 80.3 kg 11/17/20 07:33 11/17/20 07:33
--- NOTE | 2020-11-17 14:01 | ECHOF ---
Referral Reason:chest pain, LV function MEASUREMENTS -------- HEIGHT: 154.9 cm WEIGHT: 79.8 kg BP: 154/66 RVIDd: 2.8 cm (< 3.3) IVSd: 1.3 cm (0.6 - 1.1) LVIDd: 4.3 cm (3.9 - 5.3) LVPWd: 1.1 cm (0.6 - 1.1) IVSs: 1.9 cm LVIDs: 2.3 cm LVPWs: 1.7 cm LAESV Index (A-L): 41.17 ml/m Ao Diam: 2.7 cm (2.0 - 3.7) AV Cusp: 1.7 cm (1.5 - 2.6) LA Diam: 4.3 cm (2.7 - 3.8) MV EXCURSION: 17.802 mm (> 18.000) MV EF SLOPE: 32 mm/s (70 - 150) EPSS: 0.2 cm MV E Ted: 0.68 m/s MV DecT: 298 ms MV A Ted: 0.86 m/s MV E/A Ratio: 0.79 AR PHT: 731 ms RAP: 5.00 mmHg RVSP: 38.14 mmHg FINDINGS -------- Resting bradycardia (HR<60bpm). This was a technically adequate study. The left ventricular size is normal. There is mild concentric left ventricular hypertrophy. Overa ll left ventricular systolic function is normal with, an EF between 55 - 60 %. The right ventricle is normal in size. LA is moderately dilated 34-39 ml/m2 The right atrial size is normal. Interatrial and interventricular septum intact. The aortic valve is trileaflet and appears structurally normal. There is mild aortic regurgitation. There is no evidence of aortic stenosis. [id number] mitral regurgitation is present. Mild tricuspid regurgitation present. There is mild pulmonary hypertension. The right ventricular systolic pressure, as measured by Doppler, is 38.14mmHg. Trace/mild (physiologic) pulmonic regurgitation. The aortic root size is normal. IVC Not well visulized. There is no pericardial effusion. CONCLUSIONS -------- 1. The left ventricular size is normal. 2. There is mild concentric left ventricular hypertrophy. 3. Overall left ventricular systolic function is normal with, an EF between 55 - 60 %. 4. LA is moderately dilated 34-39 ml/m2 5. There is mild aortic regurgitation. 6. [id number] mitral regurgitation is present. 7. Mild tricuspid regurgitation present. 8. There is mild pulmonary hypertension. 9. The right ventricular systolic pressure, as measured by Doppler, is 38.14mmHg. 10. Trace/mild (physiologic) pulmonic regurgitation. [employer]TIVE SPECIALIST: Heather Marin RDCS
[2020-11-17] MEDS: RIVAROXABAN 20 MG TAB PO SCH (14:19)
--- NOTE | 2020-11-17 16:35 | ECHOS ---
STRESS ECHOCARDIOGRAM INDICATIONS: Chest pain BASELINE HEART RATE: 47 BASELINE BLOOD PRESSURE: 123/45 MAXIMUM HEART RATE: 104 MAXIMUM BLOOD PRESSURE: 158/56 85% MPHR: 120 100% MPHR: 141 METS: NA MAXIMUM STAGE REACHED: 5 TOTAL EXERCISE TIME: 13:21 CLINICAL INFORMATION: Baseline EKG revealed normal sinus rhythm with minor nonspecific ST abnormality. With the dobutamine administration, heart rate went up to only 104 beats per minute. Patient had glaucoma. Therefore atropine was not given. Inferolateral ST-segment depression was noted and this was not associated with any angina, but there were minor ST-segment changes to begin with. By EKG criteria, this is an inconclusive dobutamine stress test, but ischemia cannot be excluded. Heart rate was only 104. Baseline echo images revealed good wall motion and wall thickening of all segments. At a peak heart rate of 104 beats per minute after dobutamine administration, there was good augmentation of left ventricular wall motion and wall thickening of all segments. This is, however, an inconclusive dobutamine stress echo. FINAL IMPRESSION: Inconclusive dobutamine stress echo with EKG changes of ST-segment depression without angina. If ischemia is strongly suspected, a Lexiscan stress test or coronary angiography is advised. MMODL / IJN: [id number] /
[2020-11-17] MEDS ORDERED: ALPRAZolam 0.25 MG TAB PO PRN (17:10)
[2020-11-17] MEDS: ATORVASTATIN 10 MG TAB PO SCH (17:31)
[2020-11-17] MEDS: KETOROLAC 15 MG/ML 1 ML VIAL IVP PRN (17:40)
[2020-11-17] MEDS ORDERED: KETOROLAC 15 MG/ML 1 ML VIAL IVP SCH (18:00)
--- NOTE | 2020-11-17 18:06 | P.CNPUL ---
History of Present Illness Consult date: 11/17/20 Reason for consult: other Chief complaint: Back pain, chronic hypoxic respiratory failure History of present illness: 80-year-old white female patient with past medical history of paroxysmal atrial fibrillation, previous history of PE and DVT, on Xarelto, history of IVC filter placement, COPD, diabetes mellitus type 2, hypertension, hyperlipidemia, history of right breast cancer with mastectomy, anxiety and depression. Patient came into the emergency department on 11/16/2020 for evaluation of right-sided flank/back pain. Patient had some shortness of breath associated with it. She was describing the pain started approximately 7 days ago. Denies any fever or chills, no cough, patient has a history of multiple DVTs and PEs and she is on chronic anticoagulation in the form of Xarelto. She has been compliant with her medication. No increased lower extremity swelling. Patient also reports low blood pressures lately, she is on chlorthalidone recently her dose had to be adjusted. Also reported some chest pain 2 days prior to presentation. Currently denies any chest pain. Chest x-ray on admission showed low lung volumes, and interstitial prominence which is chronic in appearance, there is mild patchy basilar opacity on the lateral view, no pleural effusion. EKG showed sinus bradycardia with no acute ST or T-wave abnormalities. Admission labs showed a CBC within normal limits, INR is 1.3, d-dimer 0.41, electrolytes are within normal limits, BUN is 24 creatinine is 1.03, lactic acid was 1.7, L FTs were within normal limits, calcium was 10.4, troponin was 0.044, 0.035, 0.0- 8, proBNP was 537, urinalysis showed 1+ protein, trace glucose, large amount of leuks, but no clear evidence of infection. CTA chest showed no evidence of pulmonary embolism. It did show cardiomegaly, very small bilateral pleural effusions and possibly mild pulmonary edema. There were bibasilar opacities likely on the basis of atelectasis. Echocardiogram was obtained showing EF of 55-60%, mild to moderate mitral regurgitation, mild tricuspid regurgitation, mild pulmonary hypertension with right sided pressure 38 mmHg. She was seen by cardiology, he had a dobutamine stress echocardiogram today which was incon clusive with EKG changes of ST segment depression without angina and there is a possibility patient may need heart catheterization. His crit then 2 L of oxygen her pulse ox is 94%, she has been afebrile, the pressure is elevated this afternoon, with a pressure of 180/69. No cough or congestion, no hemoptysis, no phlegm production. Is receiving Toradol for pleuritic chest discomfort Review of Systems All systems: negative Constitutional: Denies chills, Denies fever Eyes: denies blurred vision, denies pain Ears, nose, mouth and throat: Denies headache, Denies sore throat Cardiovascular: Reports chest pain, Denies shortness of breath Respiratory: Denies cough Gastrointestinal: Denies abdominal pain, Denies diarrhea, Denies nausea, Denies vomiting Genitourinary: Denies dysuria, Denies hematuria Musculoskeletal: Denies myalgias Integumentary: Denies pruritus, Denies rash Neurological: Denies numbness, Denies weakness Psychiatric: Denies anxiety, Denies depression Endocrine: Denies fatigue, Denies weight change Past Medical History Past Medical History: Atrial Fibrillation, Asthma, Cancer, COPD, Diabetes Mellitus, Deep Vein Thrombosis (DVT), Eye Disorder, GERD/Reflux, Hyperlipidemia, Hypertension, Pneumonia, Pulmonary Embolus (PE) Additional Past Medical History / Comment(s): Paroxysmal afib, pt had traumatic fall 08/2018 and had takoMTHFR gene mutation, PEs x3, DVTs R arm and bilateral legs, hemolytic anemia, pericardial effusion with pericardial window, NIDDM type II-diet controlled now, R breast cancer with mastectomy, bronchitis, bronchial asthma, home oxygen at 2L/NC ATC, diverticulitis with bowel resection, constipation, chronic abdominal hernia, hiatal hernia, bilateral glaucoma. History of Any Multi-Drug Resistant Organisms: None Reported Past Surgical History: Appendectomy, Breast Surgery, Hysterectomy Additional Past Surgical History / Comment(s): Vinson filter, pericardial w indow, cardiac caths, R mastectomy, colonoscopies/benign polypectomies, bowel resection for diverticulitis, spleenectomy d/t hemolytic anemia, abdominal hernia surgeries/mesh. Past Anesthesia/Blood Transfusion Reactions: No Reported Reaction Past Psychological History: Anxiety, Depression Smoking Status: Never smoker Past Alcohol Use History: None Reported Past Drug Use History: None Reported - Past Family History Mother Family Medical History: Coronary Artery Disease (CAD), Myocardial Infarction (IL) Additional Family Medical History / Comment(s): Mother had rheumatic fever. She had her first IL in her late 30s and of a IL at the age of 54 yrs. Father History Unknown: Yes Family Medical History: No Reported History Additional Family Medical History / Comment(s): Father in a traumatic accident when pt was 6 yrs old. Medications and Allergies Home Medications Medication Instructions Recorded Confirmed Type Atorvastatin Calcium [Lipitor] 10 mg PO AC-SUPPER 01/28/17 11/16/20 History Gabapentin [Neurontin] 300 mg PO TID 01/28/17 11/16/20 History Sertraline HCl [Zoloft] 150 mg PO DAILY 01/28/17 11/16/20 History Brinzolamide/Brimonidine Tart 1 drop BOTH EYES BID 12/06/19 11/16/20 History [Simbrinza 1%-0.2% Eye Drops] Rivaroxaban [Xarelto] 20 mg PO AC-SUPPER 12/06/19 11/16/20 History clonazePAM [KlonoPIN] 0.5 mg PO BID 12/06/19 11/16/20 History Betaxolol HCl [Betaxolol HCl 0.5% 1 drop BOTH EYES DAILY 11/16/20 11/16/20 History Ophth Soln] Bimatoprost [Lumigan .01% Ophth 1 drop BOTH EYES HS 11/16/20 11/16/20 History Soln] Chlorthalidone [Hygroton] 12.5 mg PO DAILY@1200 11/16/20 11/16/20 History Losartan [Cozaar] 50 mg PO DAILY 11/16/20 11/16/20 History Metoprolol Succinate (ER) [Toprol 12.5 mg PO HS 11/16/20 11/16/20 History Xl] amLODIPine [Norvasc] 5 mg PO HS 11/16/20 11/16/20 History Allergies Allergy/AdvReac Type Severity Reaction Status Date / Time Penicillins Allergy Rash/Hives Verified 11/16/20 15:32 Physical Exam Vitals: Vital Signs Temp Pulse Pulse Resp BP BP Pulse Ox 11/17/20 15:30 98.6 F 47 L 18 180/69 94 L 11/17/20 11:32 98.2 F 43 L 18 123/60 94 L 11/17/20 08:00 98.4 F 56 L 18 165/73 95 11/17/20 03:50 98 F 61 18 154/66 98 11/16/20 23:05 97.9 F 41 L 17 120/71 97 11/16/20 19:30 98.4 F 50 L 18 147/53 98 11/16/20 18:52 98.0 F 52 L 16 177/66 96 11/16/20 18:11 62 18 176/66 96 Intake and Output 11/17/20 11/17/20 11/17/20 06:59 14:59 22:59 Intake Total 34 300 Output Total 600 200 600 Balance -600 -166 -300 Intake: IV 34 Invasive Line 1 14 Invasive Line 2 20 Oral 0 300 Output: Urine 600 200 600 Other: Voiding Method Toilet Weight 80.3 kg 80.3 kg GENERAL EXAM: Alert, very pleasant, 80-year-old white female, resting comfortably in bed, on 2 L of oxygen and the pulse ox of 94% comfortable in no apparent distress. HEAD: Normocephalic/atraumatic. EYES: Normal reaction of pupils, equal size. Conjunctiva pink, sclera white. NOSE: Clear with pink turbinates. THROAT: No erythema or exudates. NECK: No masses, no JVD, no thyroid enlargement, no adenopathy. CHEST: No chest wall deformity. Symmetrical expansion. LUNGS: Equal air entry with no crackles, wheeze, rhonchi or dullness. CVS: Regular rate and rhythm, normal S1 and S2, no gallops, no murmurs, no rubs ABDOMEN: Soft, nontender. No hepatosplenomegaly, normal bowel sounds, no guarding or rigidity. EXTREMITIES: No clubbing, no edema, no cyanosis, 2+ pulses and upper and lower extremities. MUSCULOSKELETAL: Muscle strength and tone normal. SPINE: No scoliosis or deformity SKIN: No rashes CENTRAL NERVOUS SYSTEM: Alert and oriented -3. No focal deficits, tone is normal in all 4 extremities. PSYCHIATRIC: Alert and oriented -3. Appropriate affect. Intact judgment and insight. Results - Laboratory Findings CBC and BMP: 11/17/20 07:33 11/17/20 07:33 PT/INR, D-dimer PT 13.0 sec (9.0-12.0) H 11/16/20 15:08 INR 1.3 (<1.2) H 11/16/20 15:08 D-Dimer 0.41 mg/L FEU (<0.60) 11/16/20 15:08 Abnormal lab findings: Abnormal Labs 11/16/20 11/16/20 11/16/20 15:08 15:08 15:08 WBC Neutrophils # PT 13.0 H INR 1.3 H Carbon Dioxide BUN 24 H Glucose 137 H Calcium 10.4 H Troponin I 0.044 H* Urine Appearance Urine Protein Urine Glucose (UA) Urine Blood Ur Leukocyte Esterase 11/16/20 11/16/20 11/17/20 15:08 18:52 07:33 WBC 12.6 H Neutrophils # 8.7 H PT INR Carbon Dioxide BUN Glucose Calcium Troponin I 0.035 H* Urine Appearance Cloudy H Urine Protein 1+ H Urine Glucose (UA) Trace H Urine Blood Small H Ur Leukocyte Esterase Large H 11/17/20 07:33 WBC Neutrophils # PT INR Carbon Dioxide 36 H BUN 25 H Glucose 121 H Calcium 10.4 H Troponin I Urine Appearance Urine Protein Urine Glucose (UA) Urine Blood Ur Leukocyte Esterase - Diagnostic Findings Chest x-ray: report reviewed, image reviewed CT scan - chest: report reviewed, image reviewed Additional studies: EKG reviewed, results the dobutamine stress echo reviewed, echocardiogram results reviewed Assessment and Plan Plan: Assessment: #1. Acute on chronic hypoxic respiratory failure related to atelectasis, and small bilateral pleural effusions. She normally wears 2 L of oxygen for history of COPD #2. Pleuritic chest discomfort, CTA chest was negative for evidence of pulmonary embolism. Patient is on chronic anticoagulation in the form of 0-4 previous history of PE and DVT. Pleurisy possibly related to viral infection #3. History of COPD on home oxygen #4. Paroxysmal atrial fibrillation, currently in sinus rhythm #5. Hypertension #6. Hyperlipidemia #7. History of MTHFR disorder on chronic anticoagulation in the form of Xarelto #8. Diabetes mellitus type 2 #9. History of right-sided breast cancer status post mastectomy #10. History of splenectomy #11. History of bowel resection #12. Previous history of Vinson filter placement Plan: Continue anticoagulation Continue Toradol We will add steroids with IV Solu-Medrol 40 mg every 8 hours Continue breathing treatments Patient is undergoing cardiac evaluation Chest x-ray and CTA chest reviewed Patient has small bilateral pleural effusions, no clear evidence of pneumonia Time with Patient: Greater than 30
[2020-11-17 19:49] LABS: Glucose,Whole Blood 118 mg/dL (75-99)
[2020-11-17] MEDS: INSULIN ASPART (NovoLOG) 100 UNIT/ML VIAL SQ SCH (20:58)
[2020-11-17] MEDS: LOSARTAN 50 MG TAB PO SCH (21:05)
[2020-11-17] MEDS: amLODIPine 5 MG TAB PO SCH (21:05)
[2020-11-17] MEDS: methylPREDNISolone SOD SUCCI 40 MG/ML 1 ML VIAL IV SCH ×2 (21:06→23:40)
[2020-11-17] MEDS: METOPROLOL SUCCINATE (ER) 25 MG TAB.ER.24H PO SCH (21:06)
[2020-11-17] MEDS: LATANOPROST 0.005% OPHTH DROPS 2.5 ML BTL BOTH EYES SCH (21:07)
[2020-11-18] MEDS: KETOROLAC 15 MG/ML 1 ML VIAL IVP PRN ×2 (05:41→20:53)
[2020-11-18 05:49] LABS: Glucose,Whole Blood 167 mg/dL (75-99)
[2020-11-18] MEDS ORDERED: hydrALAZINE HCL 20 MG/ML 1 ML VIAL IVP STA (06:21)
[2020-11-18] MEDS: methylPREDNISolone SOD SUCCI 40 MG/ML 1 ML VIAL IV SCH ×3 (06:36→23:34)
[2020-11-18] MEDS: SERTRALINE 50 MG TAB PO SCH (06:37)
[2020-11-18] MEDS: TIMOLOL 0.5% OPHTH DROPS 5 ML BTL BOTH EYES SCH ×2 (06:37→20:56)
[2020-11-18] MEDS: GABAPENTIN 300 MG CAP PO SCH ×3 (06:37→20:54)
[2020-11-18] MEDS: clonazePAM 0.5 MG TAB PO SCH ×2 (06:37→20:54)
[2020-11-18] MEDS: DORZOLAMIDE HCL 2% DROPS 10 ML BTL BOTH EYES SCH ×2 (06:38→20:56)
[2020-11-18] MEDS: BRIMONIDINE TARTRATE 0.2% DROPS 5 ML BTL BOTH EYES SCH ×2 (06:38→20:57)
[2020-11-18] MEDS: INSULIN ASPART (NovoLOG) 100 UNIT/ML VIAL SQ SCH ×4 (07:37→20:57)
[2020-11-18] MEDS ORDERED: ATORVASTATIN 80 MG TAB PO STA (10:58)
[2020-11-18] MEDS ORDERED: ASPIRIN 325 MG TAB PO STA (10:58)
[2020-11-18] MEDS ORDERED: SODIUM CHLORIDE 0.9% 1,000 ML in EMPTY BAG 1 BAG IV ONE (10:58)
[2020-11-18] MEDS ORDERED: NITROGLYCERIN SL TABS 0.4 MG TAB SUBLINGUAL PRN (10:58)
[2020-11-18] MEDS ORDERED: ALPRAZolam 0.25 MG TAB PO PRN (10:58)
[2020-11-18] MEDS: CHLORTHALIDONE 25 MG TAB PO SCH (11:52)
[2020-11-18 12:13] LABS: Glucose,Whole Blood 150 mg/dL (75-99)
[2020-11-18] MEDS: ALPRAZolam 0.5 MG TAB PO PRN (12:21)
[2020-11-18 12:31] LABS: HCT 43.4 % (34.0-46.0); Hypochromasia Slight; MCHC 32.2 g/dL (31.0-37.0); MCV 96.3 fL (80.0-100.0); Platelet Count 336 k/uL (150-450); RDW 12.9 % (11.5-15.5); WBC 11.5 k/uL (3.8-10.6)
[2020-11-18 12:40] LABS: Albumin 3.6 g/dL (3.5-5.0); Calcium 10.4 mg/dL (8.4-10.2); Potassium 3.9 mmol/L (3.5-5.1); Total Bilirubin 0.5 mg/dL (0.2-1.3); Total Protein 6.6 g/dL (6.3-8.2)
--- NOTE | 2020-11-18 12:46 | XR ---
EXAMINATION TYPE: XR chest 1V portable DATE OF EXAM: 11/18/2020 COMPARISON: 11/16/2020 CT and chest x-ray HISTORY: Chest pain TECHNIQUE: Single frontal view of the chest is obtained. FINDINGS: There are overlying leads and the patient is rotated. Heart is thought likely to be enlarg ed but is obscured. Bibasilar increased attenuation. No evident pneumothorax. Aorta is dense. Promine nce of pulmonary artery may be indicative of pulmonary artery hypertension. IMPRESSION: Correlate for possible basilar atelectasis or pneumonia, possible associated effusions. Suspect cardiomegaly, patient is rotated.
--- NOTE | 2020-11-18 12:56 | P.PN ---
Subjective Progress Note Date: 11/18/20 80-year-old white female patient with past medical history of paroxysmal atrial fibrillation, previous history of PE and DVT, on Xarelto, history of IVC filter placement, COPD, diabetes mellitus type 2, hypertension, hyperlipidemia, history of right breast cancer with mastectomy, anxiety and depression. Patient came into the emergency department on 11/16/2020 for evaluation of right-sided flank/back pain. Patient had some shortness of breath associated with it. She was describing the pain started approximately 7 days ago. Denies any fever or chills, no cough, patient has a history of multiple DVTs and PEs and she is on chronic anticoagulation in the form of Xarelto. She has been compliant with her medication. No increased lower extremity swelling. Patient also reports low blood pressures lately, she is on chlorthalidone recently her dose had to be adjusted. Also reported some chest pain 2 days prior to presentation. Currently denies any chest pain. Chest x-ray on admission showed low lung volumes, and interstitial prominence which is chronic in appearance, there is mild patchy basilar opacity on the lateral view, no pleural effusion. EKG showed sinus bradycardia with no acute ST or T-wave abnormalities. Admission labs showed a CBC within normal limits, INR is 1.3, d-dimer 0.41, electrolytes are within normal limits, BUN is 24 creatinine is 1.03, lactic acid was 1.7, LFTs were within normal limits, calcium was 10.4, troponin was 0.044, 0.035, 0 .0-8, proBNP was 537, urinalysis showed 1+ protein, trace glucose, large amount of leuks, but no clear evidence of infection. CTA chest showed no evidence of pulmonary embolism. It did show cardiomegaly, very small bilateral pleural effusions and possibly mild pulmonary edema. There were bibasilar opacities likely on the basis of atelectasis. Echocardiogram was obtained showing EF of 55-60%, mild to moderate mitral regurgitation, mild tricuspid regurgitation, mild pulmonary hypertension with right sided pressure 38 mmHg. She was seen by cardiology, he had a dobutamine stress echocardiogram today which was inconclusive with EKG changes of ST segment depression without angina and there is a possibility patient may need heart catheterization. His crit then 2 L of oxygen her pulse ox is 94%, she has been afebrile, the pressure is elevated this afternoon, with a pressure of 180/69. No cough or congestion, no hemoptysis, no phlegm production. Is receiving Toradol for pleuritic chest discomfort 11/18/2020, the patient has still having some pleuritic right-sided chest pain. No new complaints otherwise for now. The pain is obviously noncardiac in nature. I think there is a component of pleurisy in this patient. She has been maintained on long-term and coagulation with Xarelto. Furthermore, she was started on IV Solu Medrol for some pleuritis involving the right posterior chest area and this is also evident on the CAT scan of the chest. The plan is also to undergo a cardiac catheterization today and this is a dominant cardiology .. Hemodynamically stable. No new complaints. A repeat chest x-ray was ordered. Meanwhile, the patient has a white cell count of 11.5. Hemoglobin is at 14. BUN is at 36 with a creatinine of 0.7 and normal electrolytes. Objective - Vital Signs Vital signs: Vital Signs Temp 98.4 F 11/18/20 11:59 Pulse 47 L 11/18/20 11:59 Resp 18 11/18/20 11:59 BP 134/73 11/18/20 11:59 Pulse Ox 96 11/18/20 11:59 Intake & Output 11/17/20 11/18/20 11/18/20 18:59 06:59 18:59 Intake Total 594 20 10 Output Total 800 350 Balance -206 -330 10 Weight 80.3 kg 70.5 kg Intake: IV 34 20 10 Invasive Line 1 14 Invasive Line 2 20 20 10 Oral 560 Output: Urine 800 350 Other: Voiding Method Toilet # Voids 1 - Exam GENERAL EXAM: Alert, very pleasant, 80-year-old white female, resting comfortably in bed, on 2 L of oxygen and the pulse ox of 94% comfortable in no apparent distress. HEAD: Normocephalic/atraumatic. EYES: Normal reaction of pupils, equal size. Conjunctiva pink, sclera white. NOSE: Clear with pink turbinates. THROAT: No erythema or exudates. NECK: No masses, no JVD, no thyroid enlargement, no adenopathy. CHEST: No chest wall deformity. Symmetrical expansion. LUNGS: Equal air entry with no crackles, wheeze, rhonchi or dullness. CVS: Regular rate and rhythm, normal S1 and S2, no gallops, no murmurs, no rubs ABDOMEN: Soft, nontender. No hepatosplenomegaly, normal bowel sounds, no guarding or rigidity. EXTREMITIES: No clubbing, no edema, no cyanosis, 2+ pulses and upper and lower extremities. MUSCULOSKELETAL: Muscle strength and tone normal. SPINE: No scoliosis or deformity SKIN: No rashes CENTRAL NERVOUS SYSTEM: Alert and oriented -3. No focal deficits, tone is normal in all 4 extremities. PSYCHIATRIC: Alert and oriented -3. Appropriate affect. Intact judgment and insight. - Labs CBC & Chem 7: 11/18/20 12:10 11/18/20 12:10 Labs: Abnormal Lab Results - Last 24 Hours (Table) 11/17/20 11/18/20 11/18/20 Range/Units 19:48 05:48 12:10 WBC 11.5 H (3.8-10.6) k/uL BUN (7-17) mg/dL Glucose (74-99) mg/dL POC Glucose (mg/dL) 118 H 167 H (75-99) mg/dL Calcium (8.4-10.2) mg/dL 11/18/20 11/18/20 Range/Units 12:10 12:12 WBC (3.8-10.6) k/uL BUN 36 H (7-17) mg/dL Glucose 160 H (74-99) mg/dL POC Glucose (mg/dL) 150 H (75-99) mg/dL Calcium 10.4 H (8.4-10.2) mg/dL Assessment and Plan Plan: #1. Acute on chronic hypoxic respiratory failure related to atelectasis, and small bilateral pleural effusions. She normally wears 2 L of oxygen for history of COPD, the patient is back on 2 L of oxygen by nasal cannula and her acute hypoxemia is improved. #2. Pleuritic chest discomfort, CTA chest was negative for evidence of pulmonary embolism. Patient is on chronic anticoagulation in the form of Xarelto previous history of PE and DVT. Pleurisy possibly related to viral infection as the patient some pleural thickening along the right hemidiaphragm and atherosclerotic and at this point in time. Consider evolving pneumonia. Consider pleuritis. #3. History of COPD on home oxygen #4. Paroxysmal atrial fibrillation, currently in sinus rhythm #5. Hypertension #6. Hyperlipidemia #7. History of MTHFR disorder on chronic anticoagulation in the form of Xarelto #8. Diabetes mellitus type 2 #9. History of right-sided breast cancer status post mastectomy #10. History of splenectomy #11. History of bowel resection #12. Previous history of Ross filter placement Plan: Continue anticoagulation Continue Toradol IV Solu-Medrol 40 mg every 8 hours Continue breathing treatments Patient is undergoing cardiac evaluation today Repeat chest x-ray Medications were reviewed We'll continue to follow
[2020-11-18] MEDS ORDERED: fentaNYL (PF) 50 MCG/ML 2 ML AMP ONE (14:32)
[2020-11-18] MEDS ORDERED: VERAPAMIL 2.5 MG/ML 2 ML AMP ONE (14:32)
[2020-11-18] MEDS ORDERED: LIDOCAINE 1% INJ 10MG/ML (20 ML MDV) ONE (14:32)
[2020-11-18] MEDS ORDERED: IV FLUID CONTINUATION 1,000 ML IV ONE (14:35)
[2020-11-18] MEDS ORDERED: fentaNYL (PF) 50 MCG/ML 2 ML AMP IVP ONE (14:41)
[2020-11-18] MEDS ORDERED: LIDOCAINE 1% INJ 10MG/ML (20 ML MDV) SQ ONE (14:41)
[2020-11-18] MEDS ORDERED: MIDAZOLAM 2 MG/2 ML VIAL IVP ONE (14:46)
[2020-11-18] MEDS ORDERED: VERAPAMIL SYRINGE (5 MG/10 ML) INTRAARTER ONE (14:48)
[2020-11-18] MEDS ORDERED: HEPARIN SODIUM 1,000 UN/ML (10ML VL) ONE (14:51)
[2020-11-18] MEDS ORDERED: HEPARIN SODIUM 1,000 UN/ML (10ML VL) IVP ONE (14:52)
[2020-11-18] MEDS ORDERED: IOPAMIDOL-370 125ML BTL INJ ONE (15:05)
[2020-11-18] MEDS: ATORVASTATIN 10 MG TAB PO SCH (15:08)
[2020-11-18] MEDS ORDERED: RX INFO: IV CONTRAST WAS GIVEN 1 EACH MISC MISCELLANE PRN (15:08)
[2020-11-18] MEDS ORDERED: SODIUM CHLORIDE 0.9% 1,000 ML IV SCH (15:15)
--- NOTE | 2020-11-18 15:33 | CC ---
CARDIAC CATHETERIZATION REPORT Mrs. Castro is a 80-year-old female with a known history of hypertension, history of chronic obstructive lung disease, who presented with symptoms of chest discomfort and mild troponin elevation. She was evaluated by Dr. Churchill and recommendation was made regarding cardiac catheterization. The procedure as well as its risks and complications were discussed with the patient, who was in full understanding and agreement. PROCEDURE: Patient was brought to the clinical laboratory aide in a fasting, semi-sedated state after receiving fentanyl and Benadryl and achieving a moderate conscious sedated state. Using Xylocaine anesthesia and Seldinger technique, a 6-Samoan sheath was introduced in the right radial artery. Selective right and left coronary angiography was performed using 5- Samoan 3.5 bend right and left Sly catheters. Multiple views were taken of the arteries, including hemiaxial views. Following that, a 5-Samoan tight pigtail catheter was introduced into the left ventricle and pressures were calculated. Following that, catheter and sheath were removed. Hemostasis was obtained with deployment of a TR band. There was no immediate complication. Patient was returned to her room in stable condition. Of note, the patient received 3500 units of intravenous heparin as well as intra-arterial verapamil. FINDINGS: LEFT MAIN: This is a large-sized vessel bifurcating into left circumflex and left anterior descending artery. Left main coronary artery has no evidence of high-grade stenosis. LEFT ANTERIOR DESCENDING ARTERY: This is a large-sized vessel reaching to the apex with a wrap around the apex segment. The left anterior descending artery gives rise to two diagonal branches. It has proximally a 10% plaque. The rest of the vessel has no high- grade stenosis. LEFT CIRCUMFLEX: This is a nondominant vessel giving rise to a large obtuse marginal branch. The left circumflex as well as its branches have no evidence of obstructive coronary artery disease. RIGHT CORONARY ARTERY: This is a large dominant vessel bifurcating distally into PDA and posterolateral segment and branches. The right coronary artery is extremely tortuous in the proximal and mid segments. The right coronary artery as well as its branches have no evidence of obstructive coronary artery disease. LEFT VENTRICULOGRAM: Left ventriculogram was not performed. HEMODYNAMICS: There was no gradient across the aortic valve. The left ventricular end- diastolic pressure was 12-16 mmHg. CONCLUSION: 1. Minimal plaque in the proximal LAD. 2. Severely tortuous coronary arteries. 3. Right dominance. RECOMMENDATIONS: In view of findings and anatomy, I have recommended continued medical therapy with the aggressive risk factor modifications that have been initiated. Those findings and recommendation were discussed with the patient and her family, who are in full understanding and agreement. Duration of sedation was 18 minutes. JACOB / HECTOR: [id number] /
[2020-11-18 15:38] LABS: Glucose,Whole Blood 135 mg/dL (75-99)
[2020-11-18 19:49] LABS: Glucose,Whole Blood 209 mg/dL (75-99)
[2020-11-18] MEDS: LOSARTAN 50 MG TAB PO SCH (20:54)
[2020-11-18] MEDS: amLODIPine 5 MG TAB PO SCH (20:56)
[2020-11-18] MEDS: METOPROLOL SUCCINATE (ER) 25 MG TAB.ER.24H PO SCH (20:56)
[2020-11-18] MEDS: LATANOPROST 0.005% OPHTH DROPS 2.5 ML BTL BOTH EYES SCH (21:04)
[2020-11-19 06:07] LABS: Glucose,Whole Blood 167 mg/dL (75-99)
[2020-11-19] MEDS: INSULIN ASPART (NovoLOG) 100 UNIT/ML VIAL SQ SCH ×4 (06:33→22:20)
[2020-11-19] MEDS ORDERED: HEPARIN SODIUM,PORCINE 10,000 UNIT in SODIUM CHLORIDE 0.9% 1,000 ML IRRIGATION PRN (07:00)
[2020-11-19] MEDS ORDERED: HEPARIN SODIUM,PORCINE 2,500 UNIT in SODIUM CHLORIDE 0.9% 250 ML IRRIGATION PRN (07:00)
[2020-11-19] MEDS: DORZOLAMIDE HCL 2% DROPS 10 ML BTL BOTH EYES SCH ×2 (08:39→22:22)
[2020-11-19] MEDS: BRIMONIDINE TARTRATE 0.2% DROPS 5 ML BTL BOTH EYES SCH ×2 (08:39→22:21)
[2020-11-19] MEDS: methylPREDNISolone SOD SUCCI 40 MG/ML 1 ML VIAL IV SCH ×3 (08:40→22:22)
[2020-11-19] MEDS: SERTRALINE 50 MG TAB PO SCH (08:40)
[2020-11-19] MEDS: clonazePAM 0.5 MG TAB PO SCH ×2 (08:40→22:20)
[2020-11-19] MEDS: GABAPENTIN 300 MG CAP PO SCH ×3 (08:40→22:20)
--- NOTE | 2020-11-19 10:20 | P.PN ---
Subjective Progress Note Date: 11/19/20 80-year-old white female patient with past medical history of paroxysmal atrial fibrillation, previous history of PE and DVT, on Xarelto, history of IVC filter placement, COPD, diabetes mellitus type 2, hypertension, hyperlipidemia, history of right breast cancer with mastectomy, anxiety and depression. Patient came into the emergency department on 11/16/2020 for evaluation of right-sided flank/back pain. Patient had some shortness of breath associated with it. She was describing the pain started approximately 7 days ago. Denies any fever or chills, no cough, patient has a history of multiple DVTs and PEs and she is on chronic anticoagulation in the form of Xarelto. She has been compliant with her medication. No increased lower extremity swelling. Patient also reports low blood pressures lately, she is on chlorthalidone recently her dose had to be adjusted. Also reported some chest pain 2 days prior to presentation. Currently denies any chest pain. Chest x-ray on admission showed low lung volumes, and interstitial prominence which is chronic in appearance, there is mild patchy basilar opacity on the lateral view, no pleural effusion. EKG showed sinus bradycardia with no acute ST or T-wave abnormalities. Admission labs showed a CBC within normal limits, INR is 1.3, d-dimer 0.41, electrolytes are within normal limits, BUN is 24 creatinine is 1.03, lactic acid was 1.7, LFTs were within normal limits, calcium was 10.4, troponin was 0.044, 0.035, 0 .0-8, proBNP was 537, urinalysis showed 1+ protein, trace glucose, large amount of leuks, but no clear evidence of infection. CTA chest showed no evidence of pulmonary embolism. It did show cardiomegaly, very small bilateral pleural effusions and possibly mild pulmonary edema. There were bibasilar opacities likely on the basis of atelectasis. Echocardiogram was obtained showing EF of 55-60%, mild to moderate mitral regurgitation, mild tricuspid regurgitation, mild pulmonary hypertension with right sided pressure 38 mmHg. She was seen by cardiology, he had a dobutamine stress echocardiogram today which was inconclusive with EKG changes of ST segment depression without angina and there is a possibility patient may need heart catheterization. His crit then 2 L of oxygen her pulse ox is 94%, she has been afebrile, the pressure is elevated this afternoon, with a pressure of 180/69. No cough or congestion, no hemoptysis, no phlegm production. Is receiving Toradol for pleuritic chest discomfort 11/18/2020, the patient has still having some pleuritic right-sided chest pain. No new complaints otherwise for now. The pain is obviously noncardiac in nature. I think there is a component of pleurisy in this patient. She has been maintained on long-term and coagulation with Xarelto. Furthermore, she was started on IV Solu Medrol for some pleuritis involving the right posterior chest area and this is also evident on the CAT scan of the chest. The plan is also to undergo a cardiac catheterization today and this is a dominant cardiology .. Hemodynamically stable. No new complaints. A repeat chest x-ray was ordered. Meanwhile, the patient has a white cell count of 11.5. Hemoglobin is at 14. BUN is at 36 with a creatinine of 0.7 and normal electrolytes. 11/19/2020, the patient is still having some limited pleuritic chest pain although the symptoms improved. She underwent a cardiac catheterization yesterday and the patient was not found to have any significant CAD. The patient was reassured accordingly and Xarelto will be resumed. The patient remains on IV Solu-Medrol and she is using Toradol on an as needed basis for pain. Otherwise, she is doing well pH is hemodynamically stable. No hemoptysis or any other new complaints otherwise for now. Renal function stable. The chest x-ray will be repeated to rule out any evolving pneumonia in the right lower lobe. No nausea. No vomiting. No altered mentation. Less from today still pending. Objective - Vital Signs Vital signs: Vital Signs Temp 98.2 F 11/19/20 08:16 Pulse 51 L 11/19/20 08:16 Resp 18 11/19/20 08:16 BP 170/70 11/19/20 08:16 Pulse Ox 96 11/19/20 08:16 Intake & Output 11/18/20 11/19/20 11/19/20 18:59 06:59 18:59 Intake Total 660 30 610 Output Total 300 500 Balance 360 -470 610 Weight 79.4 kg Intake: IV 400 30 10 Invasive Line 2 20 30 10 Sodium Chloride 0.9% 1, 280 000 ml In Empty Bag 1 bag @ 1 ML/KG/HR 70.5 mls/hr IV .[id number] ONE Rx#: [id number] Oral 260 600 Output: Urine 300 500 Other: Voiding Method Toilet # Voids 1 - Exam GENERAL EXAM: Alert, very pleasant, 80-year-old white female, resting comfortably in bed, on 2 L of oxygen and the pulse ox of 94% comfortable in no apparent distress. HEAD: Normocephalic/atraumatic. EYES: Normal reaction of pupils, equal size. Conjunctiva pink, sclera white. NOSE: Clear with pink turbinates. THROAT: No erythema or exudates. NECK: No masses, no JVD, no thyroid enlargement, no adenopathy. CHEST: No chest wall deformity. Symmetrical expansion. LUNGS: Equal air entry with no crackles, wheeze, rhonchi or dullness. CVS: Regular rate and rhythm, normal S1 and S2, no gallops, no murmurs, no rubs ABDOMEN: Soft, nontender. No hepatosplenomegaly, normal bowel sounds, no guarding or rigidity. EXTREMITIES: No clubbing, no edema, no cyanosis, 2+ pulses and upper and lower extremities. MUSCULOSKELETAL: Muscle strength and tone normal. SPINE: No scoliosis or deformity SKIN: No rashes CENTRAL NERVOUS SYSTEM: Alert and oriented -3. No focal deficits, tone is normal in all 4 extremities. PSYCHIATRIC: Alert and oriented -3. Appropriate affect. Intact judgment and insight. - Labs CBC & Chem 7: 11/18/20 12:10 11/18/20 12:10 Labs: Abnormal Lab Results - Last 24 Hours (Table) 11/18/20 11/18/20 11/18/20 Range/Units 12:10 12:10 12:12 WBC 11.5 H (3.8-10.6) k/uL BUN 36 H (7-17) mg/dL Glucose 160 H (74-99) mg/dL POC Glucose (mg/dL) 150 H (75-99) mg/dL Calcium 10.4 H (8.4-10.2) mg/dL 11/18/20 11/18/20 11/19/20 Range/Units 15:37 19:47 06:05 WBC (3.8-10.6) k/uL BUN (7-17) mg/dL Glucose (74-99) mg/dL POC Glucose (mg/dL) 135 H 209 H 167 H (75-99) mg/dL Calcium (8.4-10.2) mg/dL Assessment and Plan Plan: #1. Acute on chronic hypoxic respiratory failure related to atelectasis, and small bilateral pleural effusions. She normally wears 2 L of oxygen for history of COPD, the patient is back on 2 L of oxygen by nasal cannula and her acute hypoxemia is improved. #2. Pleuritic chest discomfort, CTA chest was negative for evidence of pulmonary embolism. Patient is on chronic anticoagulation in the form of Xarelto previous history of PE and DVT. Pleurisy possibly related to viral infection as the patient some pleural thickening along the right hemidiaphragm and atherosclerotic and at this point in time. Consider evolving pneumonia. Consider pleuritis. The patient will be kept on IV Solu-Medrol. Repeat chest will be done. Xarelto has been resumed. #3. History of COPD on home oxygen #4. Paroxysmal atrial fibrillation, currently in sinus rhythm #5. Hypertension #6. Hyperlipidemia #7. History of MTHFR disorder on chronic anticoagulation in the form of Xarelto #8. Diabetes mellitus type 2 #9. History of right-sided breast cancer status post mastectomy #10. History of splenectomy #11. History of bowel resection #12. Previous history of Allen filter placement Plan: Cardiac catheterization was noted Continue anticoagulation with xarelto Continue Toradol IV Solu-Medrol 40 mg every 8 hours repeat CXR Continue breathing treatments Medications were reviewed We'll continue to follow
--- NOTE | 2020-11-19 11:09 | P.PN ---
Subjective Progress Note Date: 11/19/20 HISTORY OF PRESENT ILLNESS: This is a 80-year-old female with a past medical history significant for COPD with home oxygen use, paroxysmal atrial fibrillation, moderate aortic regurg itation, hypertension, and hyperlipidemia. Patient follows in the office with Dr. Rivera. We have been asked to see the patient in consultation for abnormal troponins. Patient examined at the bedside. Patient presented to the hospital with a chief complaint of right flank and back pain for the past week. Patient also reports shortness of breath with exertion for the past week. She states that she wears oxygen at night but over the last week she has been wearing oxygen during the day while when she is walking from room to room in her house due to increased shortness of breath. The patient states she actually feels pretty decent this morning and does not feel short of breath. She states she has been up walking to the bathroom and has done relatively well. She reports having an episode of chest pain 2 days ago that woke her up from a sleep. She states the pain was on the left side of her chest and felt like a pressure sensation. She states it lasted for a couple minutes and then went away on its own. EKG reveals sinus bradycardia with no signs of acute ischemia Chest xray heart probably borderline in size. Patchy basilar opacities at the left lateral view likely atelectasis. Correlate to exclude an early infiltrate Chest CTA: Negative for pulmonary embolism Laboratory data: WBC 12.6. Hemoglobin 14.4. Platelet count 337. Sodium 144. Potassium 3.8. BUN 25. Creatinine 0.85. ProBNP 537. Troponin 0.044. 0.035. 0.028. Current home cardiac medications include amlodipine 5 mg at night, Xarelto 20 mg daily, metoprolol succinate 12.5 mg at night, losartan 50 mg daily, chlorthalidone 12.5 mg daily, and atorvastatin 10 mg daily Most recent echocardiogram obtained in March 2020 revealed normal LV systolic function with [id number] aortic regurgitation Cardiac catheterization history: September 2017 revealing normal coronary arteries 11/19/2020 Patient examined this morning at the bedside. She is status post cardiac catheterization with Dr. Sanchez revealing minimal plaque in the LAD with tortuous coronary arteries. Medical management was recommended. Patient currently denies chest pain or pressure. She denies shortness of breath. Blood pressure slightly elevated this morning however previous readings are well controlled with readings of 110/67 and 138/54. Echocardiogram completed revealed ejection fraction 55-60%. Mild aortic regurgitation. [id number] mitral regurgitation. Mild tricuspid regurgitation. Mild pulmonary hypertension. PHYSICAL EXAM: VITAL SIGNS: Reviewed. GENERAL: Well-developed in no acute distress. HEENT: Head is normocephalic. Pupils are equal, round. Sclerae anicteric. Mucous membranes of the mouth are moist. Neck supple. No JVD or thyromegaly LUNGS: Respirations even and unlabored. Lungs diminished to auscultation bilaterally. HEART: Regular rate and rhythm. S1 and S2 heard. Diastolic murmur noted ABDOMEN: Soft. Nondistended. Nontender. EXTREMITIES: Normal range of motion. No clubbing or cyanosis. Peripheral pulses intact. No lower extremity edema. Right radial cath site with pulse present. NEUROLOGIC: Awake and alert. Oriented x 3. ASSESSMENT: Dyspnea on exertion 1 week Paroxysmal atrial fibrillation, on anticoagulation with Xarelto Abnormal troponins, not suggestive of acute coronary syndrome COPD with home oxygen use Moderate aortic regurgitation Hypertension Hyperlipidemia PLAN: Continue current cardiac medications Patient is stable for discharge home today from a cardiac perspective She is to follow up on an outpatient basis with Dr. Rivera Nurse practitioner note has been reviewed by physician. Signing provider agrees with the documented findings, assessment, and plan of care. Objective - Vital Signs Vital signs: Vital Signs Temp 98.2 F 11/19/20 08:16 Pulse 51 L 11/19/20 08:16 Resp 18 11/19/20 08:16 BP 170/70 11/19/20 08:16 Pulse Ox 96 11/19/20 08:16 Intake & Output 11/18/20 11/19/20 11/19/20 18:59 06:59 18:59 Intake Total 660 30 610 Output Total 300 500 Balance 360 -470 610 Weight 79.4 kg Intake: IV 400 30 10 Invasive Line 2 20 30 10 Sodium Chloride 0.9% 1, 280 000 ml In Empty Bag 1 bag @ 1 ML/KG/HR 70.5 mls/hr IV .[id number] ONE Rx#: [id number] Oral 260 600 Output: Urine 300 500 Other: Voiding Method Toilet # Voids 1 - Labs CBC & Chem 7: 11/18/20 12:10 11/18/20 12:10 Labs: Abnormal Lab Results - Last 24 Hours (Table) 11/18/20 11/18/20 11/18/20 Range/Units 12:10 12:10 12:12 WBC 11.5 H (3.8-10.6) k/uL BUN 36 H (7-17) mg/dL Glucose 160 H (74-99) mg/dL POC Glucose (mg/dL) 150 H (75-99) mg/dL Calcium 10.4 H (8.4-10.2) mg/dL 11/18/20 11/18/20 11/19/20 Range/Units 15:37 19:47 06:05 WBC (3.8-10.6) k/uL BUN (7-17) mg/dL Glucose (74-99) mg/dL POC Glucose (mg/dL) 135 H 209 H 167 H (75-99) mg/dL Calcium (8.4-10.2) mg/dL
[2020-11-19 11:28] LABS: Glucose,Whole Blood 149 mg/dL (75-99)
--- NOTE | 2020-11-19 11:43 | XR ---
EXAMINATION TYPE: XR chest 2V DATE OF EXAM: 11/19/2020 COMPARISON: Chest x-ray 11/18/2020 HISTORY: Dyspnea, pneumonia, cough TECHNIQUE: Frontal and lateral views of the chest are obtained. FINDINGS: Bibasilar increased attenuation is present. There is prominence of the aorticopulmonary wi ndow suggesting adenopathy. No evident pneumothorax. Heart is obscured. IMPRESSION: Findings are similar to prior exam. Basilar effusion and associated atelectasis, correla te to exclude pneumonia. Prominence of the pulmonary artery suggests underlying pulmonary artery hype rtension
[2020-11-19] MEDS: CHLORTHALIDONE 25 MG TAB PO SCH (12:44)
[2020-11-19] MEDS: KETOROLAC 15 MG/ML 1 ML VIAL IVP PRN ×2 (12:47→23:14)
[2020-11-19 16:28] LABS: Glucose,Whole Blood 127 mg/dL (75-99)
[2020-11-19] MEDS: ATORVASTATIN 10 MG TAB PO SCH (16:43)
[2020-11-19] MEDS: ALPRAZolam 0.5 MG TAB PO PRN (16:43)
[2020-11-19] MEDS: RIVAROXABAN 20 MG TAB PO SCH (16:43)
[2020-11-19] MEDS: amLODIPine 5 MG TAB PO SCH (16:43)
[2020-11-19] MEDS: LOSARTAN 50 MG TAB PO SCH (16:43)
[2020-11-19] MEDS ORDERED: DOCUSATE 100 MG CAP PO STA (16:44)
[2020-11-19] MEDS: polyethylene glycoL 3350 17 GM POWD.PACK PO SCH (16:53)
[2020-11-19 19:59] LABS: Glucose,Whole Blood 169 mg/dL (75-99)
[2020-11-19] MEDS: METOPROLOL SUCCINATE (ER) 25 MG TAB.ER.24H PO SCH (22:20)
[2020-11-19] MEDS: LATANOPROST 0.005% OPHTH DROPS 2.5 ML BTL BOTH EYES SCH (22:21)
[2020-11-20 06:21] LABS: Glucose,Whole Blood 141 mg/dL (75-99)
[2020-11-20] MEDS: INSULIN ASPART (NovoLOG) 100 UNIT/ML VIAL SQ SCH ×2 (07:13→12:53)
[2020-11-20] MEDS: clonazePAM 0.5 MG TAB PO SCH ×2 (08:01→20:27)
[2020-11-20] MEDS: KETOROLAC 15 MG/ML 1 ML VIAL IVP PRN ×2 (08:01→16:27)
[2020-11-20] MEDS: methylPREDNISolone SOD SUCCI 40 MG/ML 1 ML VIAL IV SCH (08:01)
[2020-11-20] MEDS: SERTRALINE 50 MG TAB PO SCH (08:03)
[2020-11-20] MEDS: GABAPENTIN 300 MG CAP PO SCH ×3 (08:04→20:27)
[2020-11-20] MEDS: polyethylene glycoL 3350 17 GM POWD.PACK PO SCH (08:05)
[2020-11-20] MEDS: BRIMONIDINE TARTRATE 0.2% DROPS 5 ML BTL BOTH EYES SCH ×2 (08:18→20:29)
[2020-11-20] MEDS: TIMOLOL 0.5% OPHTH DROPS 5 ML BTL BOTH EYES SCH (08:18)
[2020-11-20] MEDS: DORZOLAMIDE HCL 2% DROPS 10 ML BTL BOTH EYES SCH ×2 (08:19→20:29)
[2020-11-20] MEDS ORDERED: amLODIPine 5 MG TAB PO STA (11:06)
[2020-11-20] MEDS: CHLORTHALIDONE 25 MG TAB PO SCH (11:20)
[2020-11-20] MEDS: predniSONE 20 MG TAB PO SCH (11:20)
--- NOTE | 2020-11-20 11:49 | P.PN ---
Subjective Progress Note Date: 11/20/20 HISTORY OF PRESENT ILLNESS: This is a 80-year-old female with a past medical history significant for COPD with home oxygen use, paroxysmal atrial fibrillation, moderate aortic regurg itation, hypertension, and hyperlipidemia. Patient follows in the office with Dr. Rivera. We have been asked to see the patient in consultation for abnormal troponins. Patient examined at the bedside. Patient presented to the hospital with a chief complaint of right flank and back pain for the past week. Patient also reports shortness of breath with exertion for the past week. She states that she wears oxygen at night but over the last week she has been wearing oxygen during the day while when she is walking from room to room in her house due to increased shortness of breath. The patient states she actually feels pretty decent this morning and does not feel short of breath. She states she has been up walking to the bathroom and has done relatively well. She reports having an episode of chest pain 2 days ago that woke her up from a sleep. She states the pain was on the left side of her chest and felt like a pressure sensation. She states it lasted for a couple minutes and then went away on its own. EKG reveals sinus bradycardia with no signs of acute ischemia Chest xray heart probably borderline in size. Patchy basilar opacities at the left lateral view likely atelectasis. Correlate to exclude an early infiltrate Chest CTA: Negative for pulmonary embolism Laboratory data: WBC 12.6. Hemoglobin 14.4. Platelet count 337. Sodium 144. Potassium 3.8. BUN 25. Creatinine 0.85. ProBNP 537. Troponin 0.044. 0.035. 0.028. Current home cardiac medications include amlodipine 5 mg at night, Xarelto 20 mg daily, metoprolol succinate 12.5 mg at night, losartan 50 mg daily, chlorthalidone 12.5 mg daily, and atorvastatin 10 mg daily Most recent echocardiogram obtained in March 2020 revealed normal LV systolic function with ausa-fe-rtorzdui aortic regurgitation Cardiac catheterization history: September 2017 revealing normal coronary arteries 11/19/2020 Patient examined this morning at the bedside. She is status post cardiac catheterization with Dr. Sanchez revealing minimal plaque in the LAD with tortuous coronary arteries. Medical management was recommended. Patient currently denies chest pain or pressure. She denies shortness of breath. Blood pressure slightly elevated this morning however previous readings are well controlled with readings of 110/67 and 138/54. Echocardiogram completed revealed ejection fraction 55-60%. Mild aortic regurgitation. Oiui-om-uqoawpix mitral regurgitation. Mild tricuspid regurgitation. Mild pulmonary hypertension. 11/20/2020 Patient examined this might the bedside. Patient denies chest pain or pressure. She denies shortness of breath. Vital signs are stable. PHYSICAL EXAM: VITAL SIGNS: Reviewed. GENERAL: Well-developed in no acute distress. HEENT: Head is normocephalic. Pupils are equal, round. Sclerae anicteric. Mucous membranes of the mouth are moist. Neck supple. No JVD or thyromegaly LUNGS: Respirations even and unlabored. Lungs diminished to auscultation fabrizio aterally. HEART: Regular rate and rhythm. S1 and S2 heard. Diastolic murmur noted ABDOMEN: Soft. Nondistended. Nontender. EXTREMITIES: Normal range of motion. No clubbing or cyanosis. Peripheral p ulses intact. No lower extremity edema. Right radial cath site with pulse present. NEUROLOGIC: Awake and alert. Oriented x 3. ASSESSMENT: Dyspnea on exertion 1 week Paroxysmal atrial fibrillation, on anticoagulation with Xarelto Abnormal troponins, not suggestive of acute coronary syndrome COPD with home oxygen use Moderate aortic regurgitation Hypertension Hyperlipidemia PLAN: Continue current cardiac medications Patient is stable for discharge home today from a cardiac perspective She is to follow up on an outpatient basis with Dr. Rivera Nurse practitioner note has been reviewed by physician. Signing provider agrees with the documented findings, assessment, and plan of care. Objective - Vital Signs Vital signs: Vital Signs Temp 97.2 F L 11/20/20 11:16 Pulse 43 L 11/20/20 11:16 Resp 18 11/20/20 11:16 BP 197/80 11/20/20 11:16 Pulse Ox 96 11/20/20 11:16 Intake & Output 11/19/20 11/20/20 11/20/20 18:59 06:59 18:59 Intake Total 1900 30 120 Output Total 300 200 Balance 1600 -170 120 Weight 79.7 kg Intake: IV 20 30 Invasive Line 2 20 30 Oral 1880 120 Output: Urine 300 200 Other: Voiding Method Toilet # Voids 1 # Bowel Movements 2 - Labs CBC & Chem 7: 11/18/20 12:10 11/18/20 12:10 Labs: Abnormal Lab Results - Last 24 Hours (Table) 11/19/20 11/19/20 11/20/20 Range/Units 16:27 19:57 06:20 POC Glucose (mg/dL) 127 H 169 H 141 H (75-99) mg/dL
--- NOTE | 2020-11-20 11:56 | P.PN ---
Subjective Progress Note Date: 11/17/20 Principal diagnosis: Pleuritic chest pain likely due to atelectasis. Mildly elevated troponin level. Unlikely ACS. Trending down now. 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 Patient says that for the past 8 days she has been having pain when she takes deep breath mainly in the posterior lower chest. Pain gets worse with deep breathing. Radiates to the upper back.. Patient has been having worsening shortness of breath as well. Due to worsening symptoms presents to ER for evolution. Denied any complaints of fever or chills.. No cough or sputum production. Denied any was and leg swelling. No dizziness or lightheadedness. Patient states that her chlorthalidone dose was reduced recently and was on follow-up with cardiology due to elevated blood pressure and is being titrated. Patient follows with Dr. Bailey as outpatient and also Dr. Ayers. Chest x-ray showed heart probably borderline size. A limited assessment due to hypoventilatory changes and low lung volumes. There is some patchy basilar opacity on the lateral view probably atelectasis. Correlate to exclude Early infiltrate. EKG showed sinus bradycardia with heart rate 56 Laboratory data showed WBC 9.1 hemoglobin 14.4 and platelets 270 INR 1.3 d-dimer is 0.41 Sodium 139 potassium 3.8 chloride 102 BUN 24 and creatinine 1.03 Calcium 10.4 Troponin 0.044, 0.035 and 0.0-8 axillary abscess are not elevated and proBNP 537 urinalysis showed cloudy, small blood large leukocyte esterase and WBC is 3. Blood pressure was 103/60 and went up to 177/66 on admission. 11/17/2020 Patient is currently resting in the bed. Right lower chest pain is slightly better compared to yesterday. Encouraged with incentive spirometry. Patient has been afebrile. PICC was seen by pulmonary and recommended to add IV steroids. Toradol when necessary for pain. Cardiology is planning for stress test today. Patient has been afebrile. No nausea vomiting or abdominal pain or diarrhea. No leg swelling. Current medications reviewed. Objective - Vital Signs Vital signs: Vital Signs Temp 98.6 F 11/17/20 15:30 Pulse 47 L 11/17/20 15:30 Resp 18 11/17/20 15:30 BP 180/69 11/17/20 15:30 Pulse Ox 94 L 11/17/20 15:30 Intake & Output 11/17/20 11/17/20 11/18/20 06:59 18:59 06:59 Intake Total 594 Output Total 600 800 Balance -600 -206 Weight 80.3 kg 80.3 kg Intake: IV 34 Invasive Line 1 14 Invasive Line 2 20 Oral 560 Output: Urine 600 800 Other: Voiding Method Toilet - Exam PHYSICAL EXAMINATION: Patient is lying in the bed comfortably, no acute distress, awake alert and oriented.. HEENT: Normocephalic. Neck is supple. Pupils reactive. Nostrils clear. Oral cavity is moist. Neck reveals no JVD, carotid bruits, or thyromegaly. CHEST EXAMINATION: Trachea is central. Symmetrical expansion. Right basilar diminished sounds with mild coarse breath sounds.. No wheezing nonlabored breathing. Catching up breath. CARDIAC: Normal S1, S2 with no gallops. No murmurs ABDOMEN: Soft. Bowel sounds normal. No organomegaly. No abdominal bruits. Extremities: reveal no edema. No clubbing or cyanosis Neurologically awake, alert, oriented x3 with well-coordinated movements. No focal deficits noted Skin: No rash or skin lesions. Psychiatric: Coperative. Nonsuicidal Musculoskeletal: No joint swelling or deformity. Normal range of motion. - Labs CBC & Chem 7: 11/18/20 12:10 11/18/20 12:10 Labs: Abnormal Lab Results - Last 24 Hours (Table) 11/17/20 11/17/20 11/17/20 Range/Units 07:33 07:33 19:48 WBC 12.6 H (3.8-10.6) k/uL Neutrophils # 8.7 H (1.3-7.7) k/uL Carbon Dioxide 36 H (22-30) mmol/L BUN 25 H (7-17) mg/dL Glucose 121 H (74-99) mg/dL POC Glucose (mg/dL) 118 H (75-99) mg/dL Calcium 10.4 H (8.4-10.2) mg/dL Assessment and Plan Assessment: Pleuritic chest pain likely due to atelectasis. Mildly elevated troponin level. Unlikely ACS. Trending down now. Small bilateral pleural effusions and mild pulmonary edema on CTA chest. Uncontrolled hypertension Paroxysmal atrial fibrillation on anticoagulation with Eliquis History of DVT/PE. Status post IVC filter placement History of MPHR forging mutation History of right breast cancer with mastectomy Chronic hypoxic respiratory failure on home oxygen 2 L via nasal cannula Bilateral glaucoma Anxiety/depression DVT prophylaxis patient is already on xarelto Plan: Patient will be continued on telemetry monitoring. Serial EKGs and troponins 3. Troponin level is trending down now. Continue with incentive spirometry. CT angiogram showed no evidence of pulmonary embolism. D-dimer is not elevated. Patient was seen by cardiology and planning for stress test today. Continue with home blood pressure medications and titrate as needed. Continue to follow closely and pulmonary and cardiology was consulted. Time with Patient: Greater than 30
[2020-11-20 11:58] LABS: Glucose,Whole Blood 172 mg/dL (75-99)
--- NOTE | 2020-11-20 11:58 | P.PN ---
Subjective Progress Note Date: 11/18/20 Principal diagnosis: Pleuritic chest pain likely due to atelectasis. Mildly elevated troponin level. Unlikely ACS. Trending down now. 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 Patient says that for the past 8 days she has been having pain when she takes deep breath mainly in the posterior lower chest. Pain gets worse with deep breathing. Radiates to the upper back.. Patient has been having worsening shortness of breath as well. Due to worsening symptoms presents to ER for evolution. Denied any complaints of fever or chills.. No cough or sputum production. Denied any was and leg swelling. No dizziness or lightheadedness. Patient states that her chlorthalidone dose was reduced recently and was on follow-up with cardiology due to elevated blood pressure and is being titrated. Patient follows with Dr. Bailey as outpatient and also Dr. Ayers. Chest x-ray showed heart probably borderline size. A limited assessment due to hypoventilatory changes and low lung volumes. There is some patchy basilar opacity on the lateral view probably atelectasis. Correlate to exclude Early infiltrate. EKG showed sinus bradycardia with heart rate 56 Laboratory data showed WBC 9.1 hemoglobin 14.4 and platelets 270 INR 1.3 d-dimer is 0.41 Sodium 139 potassium 3.8 chloride 102 BUN 24 and creatinine 1.03 Calcium 10.4 Troponin 0.044, 0.035 and 0.0-8 axillary abscess are not elevated and proBNP 537 urinalysis showed cloudy, small blood large leukocyte esterase and WBC is 3. Blood pressure was 103/60 and went up to 177/66 on admission. 11/17/2020 Patient is currently resting in the bed. Right lower chest pain is slightly better compared to yesterday. Encouraged with incentive spirometry. Patient has been afebrile. PICC was seen by pulmonary and recommended to add IV steroids. Toradol when necessary for pain. Cardiology is planning for stress test today. Patient has been afebrile. No nausea vomiting or abdominal pain or diarrhea. No leg swelling. 11/18/2020 Patient is still having right-sided pleuritic chest pain. No complaints of fever or chills. Continue on IV steroids and incentive spirometry. Cardiology is planning for cardiac catheterization today. Dobutamine stress echocardiogram is inconclusive. Next and pulmonary and cardiology is on board. Laboratory data showed there was 11.5 hemoglobin 14 BUN 36 and creatinine 0.7. Hemodynamically stable. Current medications reviewed. Objective - Vital Signs Vital signs: Vital Signs Temp 98.6 F 11/18/20 15:15 Pulse 57 L 11/18/20 20:00 Resp 18 11/18/20 20:00 BP 139/58 11/18/20 20:00 Pulse Ox 96 11/18/20 20:00 Intake & Output 11/18/20 11/18/20 11/19/20 06:59 18:59 06:59 Intake Total 20 660 10 Output Total 350 300 Balance -330 360 10 Weight 70.5 kg Intake: IV 20 400 10 Invasive Line 2 20 20 10 Sodium Chloride 0.9% 1, 280 000 ml In Empty Bag 1 bag @ 1 ML/KG/HR 70.5 mls/hr IV .[id number] ONE Rx#: [id number] Oral 260 Output: Urine 350 300 Other: Voiding Method Toilet Toilet # Voids 1 - Exam PHYSICAL EXAMINATION: Patient is lying in the bed comfortably, no acute distress, awake alert and oriented.. HEENT: Normocephalic. Neck is supple. Pupils reactive. Nostrils clear. Oral cavity is moist. Neck reveals no JVD, carotid bruits, or thyromegaly. CHEST EXAMINATION: Trachea is central. Symmetrical expansion. Right basilar diminished sounds with mild coarse breath sounds.. No wheezing nonlabored breathing. Catching up breath. CARDIAC: Normal S1, S2 with no gallops. No murmurs ABDOMEN: Soft. Bowel sounds normal. No organomegaly. No abdominal bruits. Extremities: reveal no edema. No clubbing or cyanosis Neurologically awake, alert, oriented x3 with well-coordinated movements. No focal deficits noted Skin: No rash or skin lesions. Psychiatric: Coperative. Nonsuicidal Musculoskeletal: No joint swelling or deformity. Normal range of motion. - Labs CBC & Chem 7: 11/18/20 12:10 11/18/20 12:10 Labs: Abnormal Lab Results - Last 24 Hours (Table) 11/18/20 11/18/20 11/18/20 Range/Units 05:48 12:10 12:10 WBC 11.5 H (3.8-10.6) k/uL BUN 36 H (7-17) mg/dL Glucose 160 H (74-99) mg/dL POC Glucose (mg/dL) 167 H (75-99) mg/dL Calcium 10.4 H (8.4-10.2) mg/dL 11/18/20 11/18/20 11/18/20 Range/Units 12:12 15:37 19:47 WBC (3.8-10.6) k/uL BUN (7-17) mg/dL Glucose (74-99) mg/dL POC Glucose (mg/dL) 150 H 135 H 209 H (75-99) mg/dL Calcium (8.4-10.2) mg/dL Assessment and Plan Assessment: Pleuritic chest pain likely due to atelectasis. Mildly elevated troponin level. Unlikely ACS. Trending down now. Small bilateral pleural effusions and mild pulmonary edema on CTA chest. Uncontrolled hypertension Paroxysmal atrial fibrillation on anticoagulation with Eliquis History of DVT/PE. Status post IVC filter placement History of MPHR forging mutation History of right breast cancer with mastectomy Chronic hypoxic respiratory failure on home oxygen 2 L via nasal cannula Bilateral glaucoma Anxiety/depression DVT prophylaxis patient is already on xarelto Plan: Patient will be continued on telemetry monitoring. Serial EKGs and troponins 3. Troponin level is trending down now. Continue with incentive spirometry. CT angiogram showed no evidence of pulmonary embolism. D-dimer is not elevated. Patient was seen by cardiology. Dobutamine stress test is inconclusive. Planning for cardiac catheter patient today. Continue with home blood pressure medications and titrate as needed. Continue to follow closely and pulmonary and cardiology was consulted. Time with Patient: Greater than 30
--- NOTE | 2020-11-20 13:25 | P.PN ---
Subjective Progress Note Date: 11/20/20 Principal diagnosis: Back pain, pleurisy, chronic hypoxic respiratory failure 80-year-old white female patient with past medical history of paroxysmal atrial fibrillation, previous history of PE and DVT, on Xarelto, history of IVC filter placement, COPD, diabetes mellitus type 2, hypertension, hyperlipidemia, history of right breast cancer with mastectomy, anxiety and depression. Patient came into the emergency department on 11/16/2020 for evaluation of right-sided flank/back pain. Patient had some shortness of breath associated with it. She was describing the pain started approximately 7 days ago. Denies any fever or chills, no cough, patient has a history of multiple DVTs and PEs and she is on chronic anticoagulation in the form of Xarelto. She has been compliant with her medication. No increased lower extremity swelling. Patient also reports low blood pressures lately, she is on chlorthalidone recently her dose had to be adjusted. Also reported some chest pain 2 days prior to presentation. Currently denies any chest pain. Chest x-ray on admission showed low lung volumes, and interstitial prominence which is chronic in appearance, there is mild patchy basilar opacity on the lateral view, no pleural effusion. EKG showed sinus bradycardia with no acute ST or T-wave abnormalities. Admission labs showed a CBC within normal limits, INR is 1.3, d-dimer 0.41, electrolytes are within normal limits, BUN is 24 creatinine is 1.03, lactic acid was 1.7, LFTs were within normal limits, calcium was 10.4, troponin was 0.044, 0.035, 0.0-8, proBNP was 537, urinalysis showed 1+ protein, trace glucose, large amount of leuks, but no clear evidence of infection. CTA chest showed no evidence of pulmonary embolism. It did show cardiomegaly, very small bilateral pleural effusions and possibly mild pulmonary edema. There were bibasilar opacities likely on the basis of atelectasis. Echocardiogram was obtained showing EF of 55-60%, mild to moderate mitral regurgitation, mild tricuspid regurgitation, mild pulmonary hypertension with right sided pressure 38 mmHg. She was seen by cardiology, he had a dobutamine stress echocardiogram today which was inco nclusive with EKG changes of ST segment depression without angina and there is a possibility patient may need heart catheterization. His crit then 2 L of oxygen her pulse ox is 94%, she has been afebrile, the pressure is elevated this afternoon, with a pressure of 180/69. No cough or congestion, no hemoptysis, no phlegm production. Is receiving Toradol for pleuritic chest discomfort On 11/20/2020 patient seen in follow-up on selective care unit, she is on 2 L of oxygen pulse ox is 96%, she is hypertensive and her current blood pressure is 197/80, she remains on IV steroids with Solu-Medrol 60 mg every 6 hours, no fever or chills, she is breathing doubly, diuretic chest discomfort has imp roved. Patient is status post cardiac catheterization showed minimal plaque in the proximal LAD, severe tortuous coronary arteries, and medical therapy was recommended. No acute distress overnight, for follow-up chest x-ray yesterday showed basilar effusion and associated atelectasis. There is prominence of the pulmonary artery suggesting underlying pulmonary artery hypertension. No coughing or wheezing. She remains on Xarelto for paroxysmal atrial fibrillation currently in sinus mechanism. Objective - Vital Signs Vital signs: Vital Signs Temp 97.2 F L 11/20/20 11:16 Pulse 43 L 11/20/20 11:16 Resp 18 11/20/20 11:16 BP 197/80 11/20/20 11:16 Pulse Ox 96 11/20/20 11:16 Intake & Output 11/19/20 11/20/20 11/20/20 18:59 06:59 18:59 Intake Total 1900 30 130 Output Total 300 200 Balance 1600 -170 130 Weight 79.7 kg Intake: IV 20 30 10 Invasive Line 2 20 30 10 Oral 1880 120 Output: Urine 300 200 Other: Voiding Method Toilet # Voids 1 # Bowel Movements 2 - Exam GENERAL EXAM: Alert, very pleasant, 80-year-old white female, resting comfortably in bed, on 2 L of oxygen and the pulse ox of 94% comfortable in no apparent distress. HEAD: Normocephalic/atraumatic. EYES: Normal reaction of pupils, equal size. Conjunctiva pink, sclera white. NOSE: Clear with pink turbinates. THROAT: No erythema or exudates. NECK: No masses, no JVD, no thyroid enlargement, no adenopathy. CHEST: No chest wall deformity. Symmetrical expansion. LUNGS: Equal air entry with no crackles, wheeze, rhonchi or dullness. CVS: Regular rate and rhythm, normal S1 and S2, no gallops, no murmurs, no rubs ABDOMEN: Soft, nontender. No hepatosplenomegaly, normal bowel sounds, no guarding or rigidity. EXTREMITIES: No clubbing, no edema, no cyanosis, 2+ pulses and upper and lower extremities. MUSCULOSKELETAL: Muscle strength and tone normal. SPINE: No scoliosis or deformity SKIN: No rashes CENTRAL NERVOUS SYSTEM: Alert and oriented -3. No focal deficits, tone is normal in all 4 extremities. PSYCHIATRIC: Alert and oriented -3. Appropriate affect. Intact judgment and insight. - Labs CBC & Chem 7: 11/18/20 12:10 11/18/20 12:10 Labs: Abnormal Lab Results - Last 24 Hours (Table) 11/19/20 11/19/20 11/20/20 Range/Units 16:27 19:57 06:20 POC Glucose (mg/dL) 127 H 169 H 141 H (75-99) mg/dL 11/20/20 Range/Units 11:48 POC Glucose (mg/dL) 172 H (75-99) mg/dL Assessment and Plan Plan: Assessment: #1. Acute on chronic hypoxic respiratory failure related to atelectasis, and small bilateral pleural effusions. She normally wears 2 L of oxygen for history of COPD #2. Pleuritic chest discomfort, CTA chest was negative for evidence of pulmonary embolism. Patient is on chronic anticoagulation in the form of 0-4 previous history of PE and DVT. Pleurisy possibly related to viral infection as the patient has some pleural thickening along the right hemidiaphragm and atherosclerotic and at this time consider evolving pneumonia. Consider pleuritis. #3. History of COPD on home oxygen #4. Paroxysmal atrial fibrillation, currently in sinus rhythm #5. Hypertension #6. Hyperlipidemia #7. History of MTHFR disorder on chronic anticoagulation in the form of Xarelto #8. Diabetes mellitus type 2 #9. History of right-sided breast cancer status post mastectomy #10. History of splenectomy #11. History of bowel resection #12. Previous history of [place] filter placement Plan: Vital signs have been stable No fever or chills Chest pain has resolved No complaints of back pain We can switch IV steroids to oral prednisone Results a heart catheterization have been noted From pulmonary perspective patient can be cleared for discharge home However she'll be staying until tomorrow for improved blood pressure controlled Outpatient follow-up with Dr. Ayers in the office in 7-10 days I performed a history & physical examination of the patient and discussed their management with my nurse practitioner, Charmaine Rodriguez. I reviewed the nurse pr actitioner's note and agree with the documented findings and plan of care. Lung sounds are positive for diminished breath sounds throughout the lung m[place]. The findings and the impression was discussed with the patient. I attest to the documentation by the nurse practitioner. Time with Patient: Less than 30
[2020-11-20] MEDS: ALPRAZolam 0.5 MG TAB PO PRN (16:26)
[2020-11-20] MEDS: ATORVASTATIN 10 MG TAB PO SCH (16:26)
[2020-11-20] MEDS: RIVAROXABAN 20 MG TAB PO SCH (16:27)
[2020-11-20 17:06] LABS: Glucose,Whole Blood 166 mg/dL (75-99)
--- NOTE | 2020-11-20 17:22 | P.PN ---
Progress Note - Text Progress Note Date: 11/20/20 80-year-old white female patient with past medical history of paroxysmal atrial fibrillation, previous history of PE and DVT, on Xarelto, history of IVC filter placement, COPD, diabetes mellitus type 2, hypertension, hyperlipidemia, history of right breast cancer with mastectomy, anxiety and depression. Patient came into the emergency department on 11/16/2020 for evaluation of right-sided flank/back pain. Patient had some shortness of breath associated with it. She was describing the pain started approximately 7 days ago. Denies any fever or chills, no cough, patient has a history of multiple DVTs and PEs and she is on chronic anticoagulation in the form of Xarelto. She has been compliant with her medication. No increased lower extremity swelling. Patient also reports low blood pressures lately, she is on chlorthalidone recently her dose had to be adjusted. Also reported some chest pain 2 days prior to presentation. Currently denies any chest pain. Chest x-ray on admission showed low lung volumes, and interstitial prominence which is chronic in appearance, there is mild patchy basilar opacity on the lateral view, no pleural effusion. EKG showed sinus bradycardia with no acute ST or T-wave abnormalities. Admission labs showed a CBC within normal limits, INR is 1.3, d-dimer 0.41, electrolytes are within normal limits, BUN is 24 creatinine is 1.03, lactic acid was 1.7, LFTs were within normal limits, calcium was 10.4, troponin was 0.044, 0.035, 0.0-8, proBNP was 537, urinalysis showed 1+ protein, trace glucose, large amount of leuks, but no clear evidence of infection. CTA chest showed no evidence of pulmonary embolism. It did show cardiomegaly, very small bilateral pleural effusions and possibly mild pulmonary edema. There were bibasilar opacities likely on the basis of atelectasis. Echocardiogram was obtained showing EF of 55-60%, mild to moderate mitral regurgitation, mild tricuspid regurgitation, mild pulmonary hypertension with right sided pressure 38 mmHg. She was seen by cardiology, he had a dobutamine stress echocardiogram which was inconclusive with EKG changes of ST segment depression without angina . Cardiac catheterization showed minimal plaque in the proximal LAD. Severely tortuous coronary arteries. Medical management was advocated. 11/20/2020: Sitting up in a chair. Some baseline shortness of breath. 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 Today blood pressures running high. I've added 5 mg of Norvasc in the morning. Care was discussed with Dr. Benton from pulmonary and Dr. Bailey from cardiology. Oral intake fair. Review of systems: Was done for constitutional, cardiovascular, GI, pulmonary. relevant finding as above Active Medications Alprazolam (Alprazolam 0.25 Mg Tab) 0.25 mg PO Q6HR PRN PRN Reason: Mild Anxiety Last Admin: 11/20/20 08:01 Dose: 0.25 mg Documented by: Alprazolam (Alprazolam 0.5 Mg Tab) 0.5 mg PO Q6HR PRN PRN Reason: Moderate Anxiety Last Admin: 11/20/20 16:26 Dose: 0.5 mg Documented by: Amlodipine Besylate (Amlodipine 5 Mg Tab) 5 mg PO [facility] Stop: 11/20/20 23:59 Last Admin: 11/19/20 16:43 Dose: 5 mg Documented by: Amlodipine Besylate (Amlodipine 10 Mg Tab) 10 mg PO DAILY [facility] Atorvastatin Calcium (Atorvastatin 10 Mg Tab) 10 mg PO AC-SUPPER [facility] Last Admin: 11/20/20 16:26 Dose: 10 mg Documented by: Brimonidine Tartrate (Brimonidine Tartrate 0.2% Drops 5 Ml Btl) 1 drops BOTH EYES BID [facility] Last Admin: 11/20/20 08:18 Dose: 1 drops Documented by: Chlorthalidone (Chlorthalidone 25 Mg Tab) 12.5 mg PO DAILY@1200 [facility] Last Admin: 11/20/20 11:20 Dose: 12.5 mg Documented by: Clonazepam (Clonazepam 0.5 Mg Tab) 0.5 mg PO BID [facility] Last Admin: 11/20/20 08:01 Dose: 0.5 mg Documented by: Dorzolamide HCl (Dorzolamide Hcl 2% Drops 10 Ml Btl) 1 drops BOTH EYES BID [facility] Last Admin: 11/20/20 08:19 Dose: 1 drops Documented by: Gabapentin (Gabapentin 300 Mg Cap) 300 mg PO TID [facility] Last Admin: 11/20/20 16:27 Dose: 300 mg Documented by: Ketorolac Tromethamine (Ketorolac 15 Mg/Ml 1 Ml Vial) 15 mg IVP Q6HR PRN PRN Reason: Pain Stop: 11/20/20 17:10 Last Admin: 11/20/20 16:27 Dose: 15 mg Documented by: Latanoprost (Latanoprost 0.005% Ophth Drops 2.5 Ml Btl) 1 drops BOTH EYES HS [facility] Last Admin: 11/19/20 22:21 Dose: 1 drops Documented by: Losartan Potassium (Losartan 50 Mg Tab) 50 mg PO [facility] Last Admin: 11/19/20 16:43 Dose: 50 mg Documented by: Metoprolol Succinate (Metoprolol Succinate (Er) 25 Mg Tab.Er.24h) 12.5 mg PO [facility] Last Admin: 11/19/20 22:20 Dose: 12.5 mg Documented by: Naloxone HCl (Naloxone 0.4 Mg/Ml 1 Ml Vial) 0.2 mg IV Q2M PRN PRN Reason: Opioid Reversal Nitroglycerin (Nitroglycerin Sl Tabs 0.4 Mg Tab) 0.4 mg SUBLINGUAL Q5M PRN PRN Reason: Chest Pain Polyethylene Glycol (Polyethylene Glycol 3350 17 Gm Powd.Pack) 17 gm PO DAILY [facility] Last Admin: 11/20/20 08:05 Dose: 17 gm Documented by: Prednisone (Prednisone 20 Mg Tab) 40 mg PO DAILY [facility] Last Admin: 11/20/20 11:20 Dose: 40 mg Documented by: Rivaroxaban (Rivaroxaban 20 Mg Tab) 20 mg PO W/SUPPER [facility]; Protocol Last Admin: 11/20/20 16:27 Dose: 20 mg Documented by: Sertraline HCl (Sertraline 50 Mg Tab) 150 mg PO DAILY [facility] Last Admin: 11/20/20 08:03 Dose: 150 mg Documented by: Timolol Maleate (Timolol 0.5% Ophth Drops 5 Ml Btl) 1 drops BOTH EYES DAILY [facility] Last Admin: 11/20/20 08:18 Dose: 1 drops Documented by: On examination: VITAL SIGNS: [97.9, 43, 18, 1 97 x 80, 96% on 2 L] GENERAL APPEARANCE: Sitting up in a chair, awake, tired. HEENT: Normal external appearance of nose and ear. Oral cavity normal EYES: Pupils equal. Conjunctiva normal. NECK: JVD not raised. Mass not palpable. RESPIRATORY: Respiratory effort increased. Lungs slightly decreased breath sounds CARDIOVASCULAR: First and second sounds normal. No edema. ABDOMEN: Soft. Liver and spleen not palpable. No tenderness. No mass palpable. PSYCHIATRY: Alert and oriented x3. Mood and affect normal. INVESTIGATIONS, reviewed in the clinical context: Chest x-ray film personally reviewed by me-[November 20]: Elevated right diaphragm WBC 11.5 hemoglobin 14 platelets 336 potassium 3.9 creatinine 0.76 Troponin I 0.044, 0.035, 0.028 ProBNP 537 Cardiac catheterization: Minimal plaque in the proximal LAD. Severely tortuous coronary arteries. Dobutamine echocardiogram: Inconclusive. EKG changes without angina. 2-D echocardiogram: EF 55-60%. [id number] mitral regurgitation Chest CTA: No major pulmonary embolism Assessment and plan: -Acute on chronic hypoxic respiratory failure related to atelectasis -Acute exacerbation Moderate persistent asthma: Improving Bronchodilators. Change IV Solu-Medrol to by mouth prednisone. -Moderate secondary pulmonary hypertension secondary to possibly asthma -MT HFR gene mutation Chronically on xarelto -Chronic pulmonary embolism and DVT patient On xarelto -Chronic hypoxic respiratory failure on home oxygen 2 L, from right diaphragm paralysis and asthma -Chronic abdominal wall hernia Follow clinically -Accelerated hypertension Increase Norvasc to 10 minute ramp in the morning starting tomorrow and adding an additional 5 mg daily. Continue chlorthalidone 12.5 mg daily, Toprol-XL 12.5 mg daily at bedtime, Cozaar 50 mg daily at bedtime -Paroxysmal atrial fibrillation, currently sinus rhythm On xarelto -Troponin anemia likely from hemodynamic mismatch. 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 Incentive spirometry -Anxiety depression Zoloft 1 mg a day -Chronic gait dysfunction Uses a walker at her baseline IV Solu-Medrol cutback to by mouth prednisone. Does also previous sniff test discussed with the patient. Dr. Staley informed. Also discussed with Dr. Bailey. For uncontrolled blood pressure LAD Norvasc 5 mg 1 dose today increased to 10 mg daily starting tomorrow. Discussed with nurse. Hopefully discharge in 24 hours. Total time spent about 45 minutes with over 25 minutes of discussion
[2020-11-20 20:18] LABS: Glucose,Whole Blood 214 mg/dL (75-99)
[2020-11-20] MEDS: LOSARTAN 50 MG TAB PO SCH (20:27)
[2020-11-20] MEDS: amLODIPine 5 MG TAB PO SCH (20:27)
[2020-11-20] MEDS: METOPROLOL SUCCINATE (ER) 25 MG TAB.ER.24H PO SCH (20:28)
[2020-11-20] MEDS: LATANOPROST 0.005% OPHTH DROPS 2.5 ML BTL BOTH EYES SCH (20:29)
[2020-11-21 04:32] VITALS: RESP 16
[2020-11-21 06:03] LABS: Glucose,Whole Blood 105 mg/dL (75-99)
[2020-11-21] MEDS: clonazePAM 0.5 MG TAB PO SCH (08:53)
[2020-11-21] MEDS: polyethylene glycoL 3350 17 GM POWD.PACK PO SCH (08:53)
[2020-11-21] MEDS: GABAPENTIN 300 MG CAP PO SCH (08:53)
[2020-11-21] MEDS: SERTRALINE 50 MG TAB PO SCH (08:53)
[2020-11-21] MEDS: predniSONE 20 MG TAB PO SCH (08:54)
[2020-11-21] MEDS ORDERED: amLODIPine 10 MG TAB PO SCH (09:00)
[2020-11-21] MEDS: DORZOLAMIDE HCL 2% DROPS 10 ML BTL BOTH EYES SCH (09:03)
[2020-11-21] MEDS: BRIMONIDINE TARTRATE 0.2% DROPS 5 ML BTL BOTH EYES SCH (09:03)
[2020-11-21] MEDS: TIMOLOL 0.5% OPHTH DROPS 5 ML BTL BOTH EYES SCH (09:03)
[2020-11-21] MEDS: CHLORTHALIDONE 25 MG TAB PO SCH (11:51)
[2020-11-21 11:53] VITALS: PULSE 41; TEMP 98.6
[2020-11-21 11:59] VITALS: BP 164/66
--- NOTE | 2020-11-21 12:54 | P.PN ---
Subjective Progress Note Date: 11/21/20 Principal diagnosis: Back pain, pleurisy, chronic hypoxic respiratory failure 80-year-old white female patient with past medical history of paroxysmal atrial fibrillation, previous history of PE and DVT, on Xarelto, history of IVC filter placement, COPD, diabetes mellitus type 2, hypertension, hyperlipidemia, history of right breast cancer with mastectomy, anxiety and depression. Patient came into the emergency department on 11/16/2020 for evaluation of right-sided flank/back pain. Patient had some shortness of breath associated with it. She was describing the pain started approximately 7 days ago. Denies any fever or chills, no cough, patient has a history of multiple DVTs and PEs and she is on chronic anticoagulation in the form of Xarelto. She has been compliant with her medication. No increased lower extremity swelling. Patient also reports low blood pressures lately, she is on chlorthalidone recently her dose had to be adjusted. Also reported some chest pain 2 days prior to presentation. Currently denies any chest pain. Chest x-ray on admission showed low lung volumes, and interstitial prominence which is chronic in appearance, there is mild patchy basilar opacity on the lateral view, no pleural effusion. EKG showed sinus bradycardia with no acute ST or T-wave abnormalities. Admission labs showed a CBC within normal limits, INR is 1.3, d-dimer 0.41, electrolytes are within normal limits, BUN is 24 creatinine is 1.03, lactic acid was 1.7, LFTs were within normal limits, calcium was 10.4, troponin was 0.044, 0.035, 0.0-8, proBNP was 537, urinalysis showed 1+ protein, trace glucose, large amount of leuks, but no clear evidence of infection. CTA chest showed no evidence of pulmonary embolism. It did show cardiomegaly, very small bilateral pleural effusions and possibly mild pulmonary edema. There were bibasilar opacities likely on the basis of atelectasis. Echocardiogram was obtained showing EF of 55-60%, mild to moderate mitral regurgitation, mild tricuspid regurgitation, mild pulmonary hypertension with right sided pressure 38 mmHg. She was seen by cardiology, he had a dobutamine stress echocardiogram today which was inco nclusive with EKG changes of ST segment depression without angina and there is a possibility patient may need heart catheterization. His crit then 2 L of oxygen her pulse ox is 94%, she has been afebrile, the pressure is elevated this afternoon, with a pressure of 180/69. No cough or congestion, no hemoptysis, no phlegm production. Is receiving Toradol for pleuritic chest discomfort On 11/20/2020 patient seen in follow-up on selective care unit, she is on 2 L of oxygen pulse ox is 96%, she is hypertensive and her current blood pressure is 197/80, she remains on IV steroids with Solu-Medrol 60 mg every 6 hours, no fever or chills, she is breathing doubly, diuretic chest discomfort has imp roved. Patient is status post cardiac catheterization showed minimal plaque in the proximal LAD, severe tortuous coronary arteries, and medical therapy was recommended. No acute distress overnight, for follow-up chest x-ray yesterday showed basilar effusion and associated atelectasis. There is prominence of the pulmonary artery suggesting underlying pulmonary artery hypertension. No coughing or wheezing. She remains on Xarelto for paroxysmal atrial fibrillation currently in sinus mechanism. On 11/21/2020 patient seen in follow-up on selective care unit, she is alert, in no acute distress, she is currently on 2 L of oxygen pulse ox is 98%, no difficulty breathing, no complaints of chest pain, no pleurisy. She was kept overnight for better blood pressure control,we discontinued her IV steroids, and patient is currently on oral prednisone 40 mg daily, lung sounds are clear, no coughing or wheezing. cardiology is following, her blood pressures currently is 164/66. patient is currently on Norvasc, metoprolol, losartan. she's had no acute events overnight. Objective - Vital Signs Vital signs: Vital Signs Temp 98.6 F 11/21/20 11:00 Pulse 41 L 11/21/20 11:00 Resp 16 11/21/20 11:00 BP 164/66 11/21/20 11:58 Pulse Ox 98 11/21/20 11:00 Intake & Output 11/20/20 11/21/20 11/21/20 18:59 06:59 18:59 Intake Total 1240 30 270 Output Total 1000 Balance 1240 -970 270 Weight 79.8 kg Intake: IV 20 30 10 Invasive Line 2 20 30 10 Oral 1220 260 Output: Urine 1000 Other: Voiding Method Toilet # Voids 300 - Exam GENERAL EXAM: Alert, very pleasant, 80-year-old white female, resting comfortably in bed, on 2 L of oxygen and the pulse ox of 98% comfortable in no apparent distress. HEAD: Normocephalic/atraumatic. EYES: Normal reaction of pupils, equal size. Conjunctiva pink, sclera white. NOSE: Clear with pink turbinates. THROAT: No erythema or exudates. NECK: No masses, no JVD, no thyroid enlargement, no adenopathy. CHEST: No chest wall deformity. Symmetrical expansion. LUNGS: Equal air entry with no crackles, wheeze, rhonchi or dullness. CVS: Regular rate and rhythm, normal S1 and S2, no gallops, no murmurs, no rubs ABDOMEN: Soft, nontender. No hepatosplenomegaly, normal bowel sounds, no guarding or rigidity. EXTREMITIES: No clubbing, no edema, no cyanosis, 2+ pulses and upper and lower extremities. MUSCULOSKELETAL: Muscle strength and tone normal. SPINE: No scoliosis or deformity SKIN: No rashes CENTRAL NERVOUS SYSTEM: Alert and oriented -3. No focal deficits, tone is normal in all 4 extremities. PSYCHIATRIC: Alert and oriented -3. Appropriate affect. Intact judgment and i nsight. - Labs CBC & Chem 7: 11/18/20 12:10 11/18/20 12:10 Labs: Abnormal Lab Results - Last 24 Hours (Table) 11/20/20 11/20/20 11/21/20 Range/Units 16:55 20:17 06:01 POC Glucose (mg/dL) 166 H 214 H 105 H (75-99) mg/dL Assessment and Plan Plan: Assessment: #1. Acute on chronic hypoxic respiratory failure related to atelectasis, and small bilateral pleural effusions. She normally wears 2 L of oxygen for history of COPD #2. Pleuritic chest discomfort, CTA chest was negative for evidence of pulmonary embolism. Patient is on chronic anticoagulation in the form of 0-4 previous history of PE and DVT. Pleurisy possibly related to viral infection as the patient has some pleural thickening along the right hemidiaphragm and atherosclerotic and at this time consider evolving pneumonia. Consider pleuritis. #3. History of COPD on home oxygen #4. Paroxysmal atrial fibrillation, currently in sinus rhythm #5. Hypertension #6. Hyperlipidemia #7. History of MTHFR disorder on chronic anticoagulation in the form of Xarelto #8. Diabetes mellitus type 2 #9. History of right-sided breast cancer status post mastectomy #10. History of splenectomy #11. History of bowel resection #12. Previous history of Ross filter placement Plan: Blood pressure better controlled No shortness of breath No fever or chills No pleurisy No chest pain From pulmonary perspective patient can be cleared for discharge home Outpatient follow-up with Dr. Ayers in the office in 7-10 days I performed a history & physical examination of the patient and discussed their management with my nurse practitioner, Charmaine Rodriguez. I reviewed the nurse practitioner's note and agree with the documented findings and plan of care. Lung sounds are positive for diminished breath sounds throughout the lung mcgovern. The findings and the impression was discussed with the patient. I attest to the documentation by the nurse practitioner. Time with Patient: Less than 30
[2020-11-21 14:54] VITALS: BMI 33.2
--- NOTE | 2020-11-21 19:15 | P.DS ---
Providers Date of admission: 11/16/20 16:53 Expected date of discharge: 11/21/20 Attending physician: Rhett Ashraf Consults: 11/16/20 21:21 Consult Physician Urgent Consulting Provider: Atilio Ayers Consult Reason/Comments: acute/chronic resp insuff Do you want consulting provider notified?: Yes Primary care physician: Rg Barba [facility] Course: 80-year-old white female patient with past medical history of paroxysmal atrial fibrillation, previous history of PE and DVT, on Xarelto, history of IVC filter placement, COPD, diabetes mellitus type 2, hypertension, hyperlipidemia, history of right breast cancer with mastectomy, anxiety and depression. Patient came into the emergency department on 11/16/2020 for evaluation of right-sided flank/back pain. Patient had some shortness of breath associated with it. She was describing the pain started approximately 7 days ago. Denies any fever or chills, no cough, patient has a history of multiple DVTs and PEs and she is on chronic anticoagulation in the form of Xarelto. She has been compliant with her medication. No increased lower extremity swelling. Patient also reports low blood pressures lately, she is on chlorthalidone recently her dose had to be adjusted. Also reported some chest pain 2 days prior to presentation. Currently denies any chest pain. Chest x-ray on admission showed low lung volumes, and interstitial prominence which is chronic in appearance, there is mild patchy basilar opacity on the lateral view, no pleural effusion. EKG showed sinus bradycardia with no acute ST or T-wave abnormalities. Admission labs showed a CBC within normal limits, INR is 1.3, d-dimer 0.41, electrolytes are within normal limits, BUN is 24 creatinine is 1.03, lactic acid was 1.7, LFTs were within normal limits, calcium was 10.4, troponin was 0.044, 0.035, 0.0-8, proBNP was 537, urinalysis showed 1+ protein, trace glucose, large amount of leuks, but no clear evidence of infection. CTA chest showed no evidence of pulmonary embolism. It did show cardiomegaly, very small bilateral pleural effusions and possibly mild pulmonary edema. There were bibasilar opacities likely on the basis of atelectasis. Echocardiogram was obtained showing EF of 55-60%, mild to moderate mitral regurgitation, mild tricuspid regurgitation, mild pulmonary hypertension with right sided pressure 38 mmHg. She was seen by cardiology, he had a dobutamine stress echocardiogram which was inconclusive with EKG changes of ST segment depression without angina . Cardiac catheterization showed minimal plaque in the proximal LAD. Severely tortuous coronary arteries. Medical management was advocated. 11/20/2020: Sitting up in a chair. Some baseline shortness of breath. 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 Today blood pressures running high. I've added 5 mg of Norvasc in the morning. Care was discussed with Dr. Benton from pulmonary and Dr. Bailey from cardiology. Oral intake fair. 11/21/2020: Up in a chair. Oral intake fair. Discharge planning was discussed. Questions answered. Blood pressure better controlled. Because of bradycardia beta josé antonio discontinued. Discussed with Dr. Bailey. She'll follow up with pulmonary. Consultation: Dr. Benton partners from [facility] On examination: VITAL SIGNS: 98.6, 41, 16, 144/68, 98% on 2 L GENERAL APPEARANCE: Sitting up in a chair, awake, HEENT: Normal external appearance of nose and ear. Oral cavity normal EYES: Pupils equal. Conjunctiva normal. NECK: JVD not raised. Mass not palpable. RESPIRATORY: Respiratory effort increased. Lungs slightly decreased breath sounds CARDIOVASCULAR: First and second sounds normal. No edema. ABDOMEN: Soft. Liver and spleen not palpable. No tenderness. No mass palpable. PSYCHIATRY: Alert and oriented x3. Mood and affect normal. INVESTIGATIONS, reviewed in the clinical context: Chest x-ray film personally reviewed by ca-[November 20]: Elevated right diaphragm WBC 11.5 hemoglobin 14 platelets 336 potassium 3.9 creatinine 0.76 Troponin I 0.044, 0.035, 0.028 ProBNP 537 Cardiac catheterization: Minimal plaque in the proximal LAD. Severely tortuous coronary arteries. Dobutamine echocardiogram: Inconclusive. EKG changes without angina. 2-D echocardiogram: EF 55-60%. [id number] mitral regurgitation Chest CTA: No major pulmonary embolism Assessment and plan: -Acute on chronic hypoxic respiratory failure related to atelectasis, right diaphragm paralysis -Acute exacerbation Moderate persistent asthma: Bronchodilators. Change IV Solu-Medrol to by mouth prednisone-taper. -Moderate secondary pulmonary hypertension secondary to possibly asthma -MTHFR gene mutation Chronically on xarelto -Chronic pulmonary embolism and DVT patient On xarelto -Chronic hypoxic respiratory failure on home oxygen 2 L, from right diaphragm paralysis and asthma -Chronic abdominal wall hernia Follow clinically -Accelerated hypertension Norvasc 10 milligrams in the morning Continue chlorthalidone 25 mg daily,, Cozaar 50 mg daily at bedtime -Paroxysmal atrial fibrillation, currently sinus rhythm On xarelto -Sinus bradycardia. Toprol-XL discontinued -Troponinemia likely from hemodynamic mismatch. 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 Incentive spirometry -Anxiety depression Zoloft 150 mg a day -Chronic gait dysfunction Uses a walker at her baseline Disposition: Home Patient Condition at Discharge: Stable Plan - Discharge Summary Discharge Rx Participant: No New Discharge Prescriptions: New polyethylene glycoL 3350 [Miralax] 17 gm PO DAILY amLODIPine [Norvasc] 10 mg PO DAILY #30 tab predniSONE 10 mg PO DAILY #30 tab Continue Sertraline HCl [Zoloft] 150 mg PO DAILY Atorvastatin Calcium [Lipitor] 10 mg PO AC-SUPPER Gabapentin [Neurontin] 300 mg PO TID clonazePAM [KlonoPIN] 0.5 mg PO BID Rivaroxaban [Xarelto] 20 mg PO AC-SUPPER Brinzolamide/Brimonidine Tart [Simbrinza 1%-0.2% Eye Drops] 1 drop BOTH EYES BID Betaxolol HCl [Betaxolol HCl 0.5% Ophth Soln] 1 drop BOTH EYES DAILY Losartan [Cozaar] 50 mg PO DAILY Bimatoprost [Lumigan .01% Ophth Soln] 1 drop BOTH EYES HS Changed Chlorthalidone [Hygroton] 25 mg PO DAILY@1200 #0 Discontinued Metoprolol Succinate (ER) [Toprol Xl] 12.5 mg PO HS amLODIPine [Norvasc] 5 mg PO HS Discharge Medication List Atorvastatin Calcium [Lipitor] 10 mg PO AC-SUPPER 01/28/17 [History] Gabapentin [Neurontin] 300 mg PO TID 01/28/17 [History] Sertraline HCl [Zoloft] 150 mg PO DAILY 01/28/17 [History] Brinzolamide/Brimonidine Tart [Simbrinza 1%-0.2% Eye Drops] 1 drop BOTH EYES BID 12/06/19 [History] Rivaroxaban [Xarelto] 20 mg PO AC-SUPPER 12/06/19 [History] clonazePAM [KlonoPIN] 0.5 mg PO BID 12/06/19 [History] Betaxolol HCl [Betaxolol HCl 0.5% Ophth Soln] 1 drop BOTH EYES DAILY 11/16/20 [History] Bimatoprost [Lumigan .01% Ophth Soln] 1 drop BOTH EYES HS 11/16/20 [History] Losartan [Cozaar] 50 mg PO DAILY 11/16/20 [History] Chlorthalidone [Hygroton] 25 mg PO DAILY@1200 #0 11/21/20 [Rx] amLODIPine [Norvasc] 10 mg PO DAILY #30 tab 11/21/20 [Rx] polyethylene glycoL 3350 [Miralax] 17 gm PO DAILY 11/21/20 [Rx] predniSONE 10 mg PO DAILY #30 tab 11/21/20 [Rx] Follow up Appointment(s)/Referral(s): Stefan Rivera MD [STAFF PHYSICIAN] - 1 Week (Office will call with appt. ) Rg Barba DO [Primary Care Provider] - 1-2 days Atilio Ayers MD [STAFF PHYSICIAN] - 2 Weeks Patient Instructions/Handouts: *Surgery [facility] - After Heart Catheterization - [employer] Instructions, Heart Attack (DC), Heart Healthy Diet (ED), Hypertension (DC) Activity/Diet/Wound Care/Special Instructions: fluid restrict - 1800 cc/day Discharge Disposition: HOME SELF-CARE
== END 2020-11-21 17:11 | disposition home or self-care (01) | DRG 204 ==
LOC: EC 14:06 → 3SCARD 16:53
PROVIDERS: ADMIT Hospitalist; ATTEND Hospitalist
PROC: 4A023N7 Measurement of Cardiac Sampling and Pressure, Left Heart, Percutaneous Approach (ICD-10-PCS; principal; 2020-11-16)
PROC: B2111ZZ Fluoroscopy of Multiple Coronary Arteries using Low Osmolar Contrast (ICD-10-PCS; 2020-11-16)
DX: R07.81 Pleurodynia (principal); D58.9 Hereditary hemolytic anemia, unspecified; J81.1 Chronic pulmonary edema; J96.11 Chronic respiratory failure with hypoxia; J98.11 Atelectasis; K57.92 Diverticulitis of intestine, part unspecified, without perforation or abscess without bleeding; E72.12 Methylenetetrahydrofolate reductase deficiency; K44.9 Diaphragmatic hernia without obstruction or gangrene; E11.9 Type 2 diabetes mellitus without complications; J44.9 Chronic obstructive pulmonary disease, unspecified; E66.9 Obesity, unspecified; E78.5 Hyperlipidemia, unspecified; F41.8 Other specified anxiety disorders; H40.9 Unspecified glaucoma; I10 Essential (primary) hypertension; I27.29 Other secondary pulmonary hypertension; I48.0 Paroxysmal atrial fibrillation; J45.40 Moderate persistent asthma, uncomplicated; J98.6 Disorders of diaphragm; F32.9 Major depressive disorder, single episode, unspecified; F41.9 Anxiety disorder, unspecified; M54.9 Dorsalgia, unspecified; R00.1 Bradycardia, unspecified; Z68.33 Body mass index [BMI] 33.0-33.9, adult; Z79.01 Long term (current) use of anticoagulants; Z79.899 Other long term (current) drug therapy; Z85.3 Personal history of malignant neoplasm of breast; Z86.718 Personal history of other venous thrombosis and embolism; Z90.49 Acquired absence of other specified parts of digestive tract; Z90.11 Acquired absence of right breast and nipple; Z90.710 Acquired absence of both cervix and uterus; Z90.81 Acquired absence of spleen; Z95.828 Presence of other vascular implants and grafts; Z99.81 Dependence on supplemental oxygen; Z86.711 Personal history of pulmonary embolism; Z88.0 Allergy status to penicillin
CPT/HCPCS: 36415; 51798; 71045; 71046; 71275; 80048; 80053; 81001; 83605; 83735; 83880; 84484; 85025; 85027; 85379; 85610; 85730; 93005; 93306; 93351; 93458; 99285

== ENCOUNTER 2020-12-02 07:11 | Inpatient (IN) | payer MEDICARE, BC ==
--- NOTE | 2020-12-02 07:22 | ED ---
General Adult HPI - General Stated complaint: Chest Pain Time Seen by Provider: 12/02/20 07:12 Source: patient, EMS, RN notes reviewed, old records reviewed Mode of arrival: EMS Limitations: no limitations - History of Present Illness Initial comments: Patient is a pleasant 80-year-old female presenting to the emergency Department with chest discomfort. Onset of symptoms was around 2 AM. Discomfort is more right sided. Discomfort is more sharp. Discomfort does increase with deep breaths and position changes. No palpitations. No dyspnea. No nausea or diaphoresis. Patient was in the hospital recently with a mild heart attack and pleurisy per her account. - Related Data Home Medications Medication Instructions Recorded Confirmed Atorvastatin Calcium [Lipitor] 10 mg PO AC-SUPPER 01/28/17 12/02/20 Gabapentin [Neurontin] 300 mg PO TID 01/28/17 12/02/20 Sertraline HCl [Zoloft] 150 mg PO DAILY 01/28/17 12/02/20 Brinzolamide/Brimonidine Tart 1 drop BOTH EYES BID 12/06/19 12/02/20 [Simbrinza 1%-0.2% Eye Drops] Rivaroxaban [Xarelto] 20 mg PO AC-SUPPER 12/06/19 12/02/20 Betaxolol HCl [Betaxolol HCl 0.5% 1 drop BOTH EYES DAILY 11/16/20 12/02/20 Ophth Soln] Bimatoprost [Lumigan .01% Ophth 1 drop BOTH EYES HS 11/16/20 12/02/20 Soln] Losartan [Cozaar] 50 mg PO DAILY 11/16/20 12/02/20 clonazePAM [KlonoPIN] 1 mg PO BID 12/02/20 12/02/20 Previous Rx's Medication Instructions Recorded Chlorthalidone [Hygroton] 25 mg PO DAILY@1200 #0 11/21/20 amLODIPine [Norvasc] 10 mg PO DAILY #30 tab 11/21/20 polyethylene glycoL 3350 [Miralax] 17 gm PO DAILY 11/21/20 Allergies Allergy/AdvReac Type Severity Reaction Status Date / Time Penicillins Allergy Rash/Hives Verified 12/02/20 08:43 Review of Systems ROS Statement: Those systems with pertinent positive or pertinent negative responses have been documented in the HPI. ROS Other: All systems not noted in ROS Statement are negative. Constitutional: Denies: fever Eyes: Denies: eye pain ENT: Denies: ear pain Respiratory: Denies: cough, dyspnea Cardiovascular: Reports: as per HPI, chest pain. 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 History of Any Multi-Drug Resistant Organisms: None Reported Past Surgical History: Appendectomy, Breast Surgery, Hysterectomy Additional Past Surgical History / Comment(s): Ross filter, pericardial window, cardiac caths, R mastectomy, colonoscopies/benign polypectomies, bowel resection for diverticulitis, spleenectomy d/t hemolytic anemia, abdominal hernia surgeries/mesh. Past Anesthesia/Blood Transfusion Reactions: No Reported Reaction Past Psychological History: Anxiety, Depression Smoking Status: Never smoker Past Alcohol Use History: None Reported Past Drug Use History: None Reported - Past Family History Mother Family Medical History: Coronary Artery Disease (CAD), Myocardial Infarction ([place]) Additional Family Medical History / Comment(s): Mother had rheumatic fever. She had her first UT in her late 30s and of a UT at the age of 53 yrs. Father History Unknown: Yes Family Medical History: No Reported History Additional Family Medical History / Comment(s): Father in a traumatic accident when pt was 6 yrs old. General Exam Limitations: no limitations General appearance: alert, in no apparent distress Head exam: Present: atraumatic Eye exam: Present: normal appearance, PERRL ENT exam: Present: normal oropharynx Neck exam: Present: normal inspection Respiratory exam: Present: normal lung sounds bilaterally. Absent: chest wall tenderness Cardiovascular Exam: Present: tachycardia, irregular rhythm Expanded Peripheral pulses: 2+: Radial (R), Radial (L), Dorsalis Pedis (R), Dorsalis Pedis (L) GI/Abdominal exam: Present: soft. Absent: tenderness Extremities exam: Present: normal inspection. Absent: pedal edema, calf tenderness Neurological exam: Present: alert Psychiatric exam: Present: normal affect, normal mood Skin exam: Present: normal color Course Vital Signs 12/02/20 12/02/20 07:14 07:22 Temperature 100.5 F H Pulse Rate 152 H Respiratory 18 Rate Blood Pressure 136/83 O2 Sat by Pulse 93 L Oximetry - Reevaluation(s) Reevaluation #1: 12/02/20 09:01 Patient has converted to normal sinus rhythm on the monitor with rate of 66. Patient was placed on monitor for arrhythmia and to monitor for heart rate. 12/02/20 09:02 Patient does meet sepsis criteria diagnosed at 9 AM. Blood cultures and lactic acid and IV antibiotics will be ordered. EKG Findings - EKG Comments: EKG Findings:: A. fib with RVR, rate 116. QRS 94. QT 366. QTc 508. Left axis. LVH. Lateral ST depression. Medical Decision Making - Medical Decision Making Patient reevaluated and resting comfortably in bed. Patient updated on results and plan. Case is discussed with Dr. Ashraf, who will admit for Dr. Phipps. - Lab Data Result diagrams: 12/02/20 07:31 12/02/20 07:31 Lab Results 12/02/20 12/02/20 12/02/20 Range/Units 07:31 07:31 07:31 WBC 26.3 H (3.8-10.6) k/uL RBC 4.63 (3.80-5.40) m/uL Hgb 14.3 (11.4-16.0) gm/dL Hct 43.4 (34.0-46.0) % MCV 93.7 (80.0-100.0) fL MCH 30.9 (25.0-35.0) pg MCHC 32.9 (31.0-37.0) g/dL RDW 12.8 (11.5-15.5) % Plt Count 388 (150-450) k/uL MPV 8.8 Neutrophils % 83 % Lymphocytes % 12 % Monocytes % 4 % Eosinophils % 2 % Basophils % 0 % Neutrophils # 21.7 H (1.3-7.7) k/uL Lymphocytes # 3.1 (1.0-4.8) k/uL Monocytes # 0.9 (0-1.0) k/uL Eosinophils # 0.4 (0-0.7) k/uL Basophils # 0.1 (0-0.2) k/uL PT 14.0 H (9.0-12.0) sec INR 1.4 H (<1.2) APTT 25.4 (22.0-30.0) sec Sodium 133 L (137-145) mmol/L Potassium 3.6 (3.5-5.1) mmol/L Chloride 97 L (98-107) mmol/L Carbon Dioxide 29 (22-30) mmol/L Anion Gap 7 mmol/L BUN 25 H (7-17) mg/dL Creatinine 0.93 (0.52-1.04) mg/dL Est GFR (CKD-EPI)AfAm 68 (>60 ml/min/1.73 sqM) Est GFR (CKD-EPI)NonAf 59 (>60 ml/min/1.73 sqM) Glucose 178 H (74-99) mg/dL Calcium 10.1 (8.4-10.2) mg/dL Magnesium 1.9 (1.6-2.3) mg/dL Total Bilirubin 1.4 H (0.2-1.3) mg/dL AST 17 (14-36) U/L ALT 15 (4-34) U/L Alkaline Phosphatase 69 (38-126) U/L Troponin I (0.000-0.034) ng/mL Total Protein 6.0 L (6.3-8.2) g/dL Albumin 3.2 L (3.5-5.0) g/dL TSH 2.600 (0.465-4.680) mIU/L Free T4 1.39 (0.78-2.19) ng/dL Urine Color Urine Appearance (Clear) Urine pH (5.0-8.0) Ur Specific E[place] (1.001-1.035) Urine Protein (Negative) Urine Glucose (UA) (Negative) Urine Ketones (Negative) Urine Blood (Negative) Urine Nitrite (Negative) Urine Bilirubin (Negative) Urine Urobilinogen (<2.0) mg/dL Ur Leukocyte Esterase (Negative) Urine RBC (0-5) /hpf Urine WBC (0-5) /hpf Urine Bacteria (None) /hpf Hyaline Casts (0-2) /lpf Urine Mucus (None) /hpf Coronavirus (PCR) (Not Detectd) 12/02/20 12/02/20 12/02/20 Range/Units 07:31 07:31 07:31 WBC (3.8-10.6) k/uL RBC (3.80-5.40) m/uL Hgb (11.4-16.0) gm/dL Hct (34.0-46.0) % MCV (80.0-100.0) fL MCH (25.0-35.0) pg MCHC (31.0-37.0) g/dL RDW (11.5-15.5) % Plt Count (150-450) k/uL MPV Neutrophils % % Lymphocytes % % Monocytes % % Eosinophils % % Basophils % % Neutrophils # (1.3-7.7) k/uL Lymphocytes # (1.0-4.8) k/uL Monocytes # (0-1.0) k/uL Eosinophils # (0-0.7) k/uL Basophils # (0-0.2) k/uL PT (9.0-12.0) sec INR (<1.2) APTT (22.0-30.0) sec Sodium (137-145) mmol/L Potassium (3.5-5.1) mmol/L Chloride (98-107) mmol/L Carbon Dioxide (22-30) mmol/L Anion Gap mmol/L BUN (7-17) mg/dL Creatinine (0.52-1.04) mg/dL Est GFR (CKD-EPI)AfAm (>60 ml/min/1.73 sqM) Est GFR (CKD-EPI)NonAf (>60 ml/min/1.73 sqM) Glucose (74-99) mg/dL Calcium (8.4-10.2) mg/dL Magnesium (1.6-2.3) mg/dL Total Bilirubin (0.2-1.3) mg/dL AST (14-36) U/L ALT (4-34) U/L Alkaline Phosphatase (38-126) U/L Troponin I 0.028 (0.000-0.034) ng/mL Total Protein (6.3-8.2) g/dL Albumin (3.5-5.0) g/dL TSH (0.465-4.680) mIU/L Free T4 (0.78-2.19) ng/dL Urine Color Yellow Urine Appearance Clear (Clear) Urine pH 6.5 (5.0-8.0) Ur Specific Eaton 1.018 (1.001-1.035) Urine Protein Trace H (Negative) Urine Glucose (UA) Negative (Negative) Urine Ketones Negative (Negative) Urine Blood Trace H (Negative) Urine Nitrite Negative (Negative) Urine Bilirubin Negative (Negative) Urine Urobilinogen <2.0 (<2.0) mg/dL Ur Leukocyte Esterase Negative (Negative) Urine RBC 3 (0-5) /hpf Urine WBC 1 (0-5) /hpf Urine Bacteria Rare H (None) /hpf Hyaline Casts 6 H (0-2) /lpf Urine Mucus Occasional H (None) /hpf Coronavirus (PCR) Not Detected (Not Detectd) - Radiology Data Radiology results: image reviewed (Chest x-ray shows right upper lobe infiltrate.) Disposition Clinical Impression: Atrial fibrillation with RVR, Pneumonia, Sepsis Disposition: ADMITTED IP TO THIS HOSP Is patient prescribed a controlled substance at d/c from ED?: No Referrals: Rg Barba DO [Primary Care Provider] - 1-2 days Decision Time: 09:02
[2020-12-02 07:47] LABS: Basophils # (A) 0.1 k/uL (0-0.2); Basophils % (A) 0 %; Eosinophils # (A) 0.4 k/uL (0-0.7); Eosinophils % (A) 2 %; HCT 43.4 % (34.0-46.0); HGB 14.3 gm/dL (11.4-16.0); Lymphocytes # (A) 3.1 k/uL (1.0-4.8); Lymphocytes % (A) 12 %; MCH 30.9 pg (25.0-35.0); MCHC 32.9 g/dL (31.0-37.0); MCV 93.7 fL (80.0-100.0); Mean Platelet Volume 8.8; Monocytes # (A) 0.9 k/uL (0-1.0); Monocytes % (A) 4 %; Neutrophils # (A) 21.7 k/uL (1.3-7.7); Neutrophils % (A) 83 %; Platelet Count 388 k/uL (150-450); RBC 4.63 m/uL (3.80-5.40); RDW 12.8 % (11.5-15.5); WBC 26.3 k/uL (3.8-10.6)
[2020-12-02 07:57] LABS: INR 1.4 (<1.2); Partial Thromboplastin Time 25.4 sec (22.0-30.0)
[2020-12-02 08:18] LABS: Albumin 3.2 g/dL (3.5-5.0); Calcium 10.1 mg/dL (8.4-10.2); Magnesium 1.9 mg/dL (1.6-2.3); Potassium 3.6 mmol/L (3.5-5.1); Total Bilirubin 1.4 mg/dL (0.2-1.3)
[2020-12-02] MEDS: DILTIAZEM 125 MG in SODIUM CHLORIDE 0.9% 100 ML IV SCH ×2 (08:19→09:29)
--- NOTE | 2020-12-02 08:21 | XR ---
EXAMINATION TYPE: XR chest 2V DATE OF EXAM: 12/02/2020 COMPARISON: Chest x-ray November 19, 2020 HISTORY: Dysrhythmia. TECHNIQUE: Frontal and lateral views of the chest are obtained. FINDINGS: There is persistent low lung volumes and bibasilar opacities. New right upper lung opacity . The cardiac silhouette size is stable and within normal limits with atherosclerotic aorta. The os seous structures are demineralized. Partial visualization of malunion healed fracture right proximal humerus. IMPRESSION: Persistent low lung volumes and bibasilar opacities. New right upper lung acute infiltra te.
[2020-12-02 08:33] LABS: T4, Free (Free Thyroxine) 1.39 ng/dL (0.78-2.19)
[2020-12-02 08:49] LABS: Appearance,Urine Clear (Clear); Bacteria,Urine Rare /hpf; Bilirubin,Urine Negative (Negative); Blood,Urine Trace (Negative); Color,Urine Yellow; Glucose,Urine (UA) Negative (Negative); Hyaline Casts,Urine 6 /lpf (0-2); Ketones,Urine Negative (Negative); Leukocyte Esterase,Urine Negative (Negative); Mucus,Urine Occasional /hpf; Nitrite,Urine Negative (Negative); PH, Urine 6.5 (5.0-8.0); Protein,Urine Trace (Negative); RBC,Urine 3 /hpf (0-5); Specific Gravity,Urine 1.018 (1.001-1.035); Urobilinogen,Urine <2.0 mg/dL (<2.0); WBC,Urine 1 /hpf (0-5)
[2020-12-02] MEDS ORDERED: LEVOFLOXACIN 750MG-D5W PMX 750 MG in DEXTROSE/WATER 1 150ML.BAG IVPB STA (09:04)
[2020-12-02] MEDS ORDERED: PNEUMONIA PROTOCOL UTILIZED 1 EACH MISC PO PRN (09:04)
[2020-12-02] MEDS ORDERED: IPRATROPIUM-ALBUTEROL 3 ML NEB INHALATION PRN (09:04)
[2020-12-02] MEDS: SODIUM CHLORIDE 0.9% 1,000 ML IV SCH ×2 (09:38→17:36)
--- NOTE | 2020-12-02 11:40 | P.CNPUL ---
History of Present Illness Consult date: 12/02/20 Requesting physician: Rhett Ashraf Reason for consult: pneumonia Chief complaint: Right sided chest discomfort History of present illness: This is a 80-year-old female whom I was asked to see for acute onset of right- sided chest pain. Patient woke up around 2 AM with chest discomfort in the r ight side. Pain was described as sharp and pleuritic. Worse with coughing and sometimes with certain position changes. Patient also had some shortness of breath, she had previous history of DVT and pulmonary embolism, however she is maintained on Xarelto and she is very compliant with it on a regular basis. Patient also had a previous history of IVC filter placement. Looking back at her previous admission on 11/17, patient presented back then with mostly symptoms of back pain, and shortness of breath. Workup on the last admission included CT angiogram of the chest, and it was negative for pulmonary embolism. On this admission she had a chest x-ray questioning a new infiltrate in the right upper lobe and a small right-sided pleural effusion. Considering the findings patient was admitted and this consult was initiated. Patient is known to have history of DVT pulmonary embolism IVC filter placement COPD diabetes diaphragm paralysis generalized anxiety disorder depressed cancer and previous right-sided mastectomy. On this admission patient was noted to have a WBC of 26.3 hemoglo bin 14.3 electrolytes are normal renal profile is normal, negative PCR for COVID-19 infection Review of Systems Constitutional: Denies chills, Denies fever Eyes: denies blurred vision, denies pain Ears, nose, mouth and throat: Denies headache, Denies sore throat Cardiovascular: Reports chest pain, Denies shortness of breath Respiratory: No cough no wheezing no fever no chills, but she has mostly right- sided chest pain and shortness of breath. Gastrointestinal: As noted in HPI, relatively negative except for some discomfort in the right upper quadrant. Genitourinary: Denies dysuria, Denies hematuria Musculoskeletal: Denies myalgias Integumentary: Denies pruritus, Denies rash Neurological: Denies numbness, Denies weakness Psychiatric: Denies anxiety, Denies depression Endocrine: Denies fatigue, Denies weight change Past Medical History Past Medical History: Atrial Fibrillation, Asthma, Cancer, COPD, Diabetes Mellitus, Deep Vein Thrombosis (DVT), Eye Disorder, GERD/Reflux, Hyperlipidemia, Hypertension, Pneumonia, Pulmonary Embolus (PE) Additional Past Medical History / Comment(s): Paroxysmal afib, pt had traumatic fall 08/2018 and had takoMTHFR gene mutation, PEs x3, DVTs R arm and bilateral legs, hemolytic anemia, pericardial effusion with pericardial window, NIDDM type II-diet controlled now, R breast cancer with mastectomy, bronchitis, bronchial asthma, home oxygen at 2L/[place] ATC, diverticulitis with bowel resection, constipation, chronic abdominal hernia, hiatal hernia, bilateral glaucoma. History of Any Multi-Drug Resistant Organisms: None Reported Past Surgical History: Appendectomy, Breast Surgery, Hysterectomy Additional Past Surgical History / Comment(s): Ross filter, pericardial window, cardiac caths, R mastectomy, colonoscopies/benign polypectomies, bowel resection for diverticulitis, spleenectomy d/t hemolytic anemia, abdominal hernia surgeries/mesh. Past Anesthesia/Blood Transfusion Reactions: No Reported Reaction Past Psychological History: Anxiety, Depression Smoking Status: Never smoker Past Alcohol Use History: None Reported Past Drug Use History: None Reported - Past Family History Mother Family Medical History: Coronary Artery Disease (CAD), Myocardial Infarction ([place]) Additional Family Medical History / Comment(s): Mother had rheumatic fever. She had her first [place] in her late 30s and of a [place] at the age of 53 yrs. Father History Unknown: Yes Family Medical History: No Reported History Additional Family Medical History / Comment(s): Father in a traumatic accident when pt was 6 yrs old. Medications and Allergies Home Medications Medication Instructions Recorded Confirmed Type Atorvastatin Calcium [Lipitor] 10 mg PO AC-SUPPER 01/28/17 12/02/20 History Gabapentin [Neurontin] 300 mg PO TID 01/28/17 12/02/20 History Sertraline HCl [Zoloft] 150 mg PO DAILY 01/28/17 12/02/20 History Brinzolamide/Brimonidine Tart 1 drop BOTH EYES BID 12/06/19 12/02/20 History [Simbrinza 1%-0.2% Eye Drops] Rivaroxaban [Xarelto] 20 mg PO AC-SUPPER 12/06/19 12/02/20 History Betaxolol HCl [Betaxolol HCl 0.5% 1 drop BOTH EYES DAILY 11/16/20 12/02/20 History Ophth Soln] Bimatoprost [Lumigan .01% Ophth 1 drop BOTH EYES HS 11/16/20 12/02/20 History Soln] Losartan [Cozaar] 50 mg PO DAILY 11/16/20 12/02/20 History Chlorthalidone [Hygroton] 25 mg PO DAILY@1200 #0 11/21/20 12/02/20 Rx amLODIPine [Norvasc] 10 mg PO DAILY #30 tab 11/21/20 12/02/20 Rx polyethylene glycoL 3350 [Miralax] 17 gm PO DAILY 11/21/20 12/02/20 Rx clonazePAM [KlonoPIN] 1 mg PO BID 12/02/20 12/02/20 History Allergies Allergy/AdvReac Type Severity Reaction Status Date / Time Penicillins Allergy Rash/Hives Verified 12/02/20 08:43 Physical Exam Vitals: Vital Signs Temp Pulse Resp BP Pulse Ox 12/02/20 09:39 99.8 F H 12/02/20 09:38 68 19 127/56 95 12/02/20 07:22 100.5 F H 12/02/20 07:14 152 H 18 136/83 93 L Intake and Output 12/01/20 12/02/20 12/02/20 22:59 06:59 14:59 Other: Weight 79.379 kg GENERAL EXAM: Revealed 80-year-old female anxious, in no distress. On 2 L nasal cannula with O2 saturation 95%. HEAD: Normocephalic/atraumatic. EENT: PERRLA, EOMI, nonicteric, no neck masses, no JVD, no stridor. CHEST: No chest wall deformity. Symmetrical expansion. LUNGS: Slightly diminished breath sounds and slight dullness at the right base. Otherwise unremarkable. Left side is clear. CVS: Regular rate and rhythm, normal S1 and S2, no gallops, no murmurs, no rubs ABDOMEN: Soft, nontender. No hepatosplenomegaly, normal bowel sounds, no guarding or rigidity. EXTREMITIES: No clubbing, no edema, no cyanosis, 2+ pulses and upper and lower extremities. MUSCULOSKELETAL: Muscle strength and tone normal. SPINE: No scoliosis or deformity SKIN: No rashes CENTRAL NERVOUS SYSTEM: Alert and oriented -3. No focal deficits, tone is normal in all 4 extremities. PSYCHIATRIC: Alert and oriented -3. Appropriate affect. Intact judgment and insight. Results - Laboratory Findings CBC and BMP: 12/02/20 07:31 12/02/20 07:31 PT/INR, D-dimer PT 14.0 sec (9.0-12.0) H 12/02/20 07:31 INR 1.4 (<1.2) H 12/02/20 07:31 Abnormal lab findings: Abnormal Labs 12/02/20 12/02/20 12/02/20 07:31 07:31 07:31 WBC 26.3 H Neutrophils # 21.7 H PT 14.0 H INR 1.4 H Sodium 133 L Chloride 97 L BUN 25 H Glucose 178 H Total Bilirubin 1.4 H Total Protein 6.0 L Albumin 3.2 L Urine Protein Urine Blood Urine Bacteria Hyaline Casts Urine Mucus 12/02/20 07:31 WBC Neutrophils # PT INR Sodium Chloride BUN Glucose Total Bilirubin Total Protein Albumin Urine Protein Trace H Urine Blood Trace H Urine Bacteria Rare H Hyaline Casts 6 H Urine Mucus Occasional H - Diagnostic Findings Chest x-ray: image reviewed (As noted in HPI.Upper lobe infiltrate is noted. Small right-sided pleural effusion is also noted.) Assessment and Plan Assessment: Impression: Possible right upper lobe pneumonia with right-sided pleuritic chest pain and small right-sided parapneumonic effusion. Acute on chronic hypoxic respiratory failure secondary to underlying COPD and chronic bibasilar atelectasis. Recurrent pleuritic chest discomfort, patient had negative workup for pulmonary embolism on the last admission and she is chronically on Xarelto, very compliant with it. Hence recurrent pulmonary embolism is felt to be unlikely. Paroxysmal atrial fibrillation Hypertension History of [place] HFR gene mutation Type 2 diabetes. History of right-sided breast cancer and previous vasectomy History of splenectomy History of bowel resection History of IVC filter placement. Recommendation: Continue anticoagulation therapy Continue antibiotics as ordered by the admitting physician. We'll order pro- calcitonin. Start patient on Solu-Medrol 40 mg IV push every 8 hours Continue updrafts. Consider ultrasound of the chest and if significant effusion is noted I would consider a right-sided thoracentesis however the patient has to come off Xarelto for a couple of days Before thoracentesis. We will continue to follow. Time with Patient: Greater than 30
[2020-12-02 11:45] LABS: Glucose,Whole Blood 125 mg/dL (75-99)
[2020-12-02] MEDS ORDERED: DORZOLAMIDE HCL 2% DROPS 10 ML BTL BOTH EYES SCH (12:00)
[2020-12-02] MEDS ORDERED: amLODIPine 10 MG TAB PO SCH (12:00)
[2020-12-02] MEDS: methylPREDNISolone SOD SUCCI 40 MG/ML 1 ML VIAL IV SCH ×2 (12:29→21:00)
[2020-12-02] MEDS: CHLORTHALIDONE 25 MG TAB PO SCH (12:29)
--- NOTE | 2020-12-02 13:01 | US ---
EXAMINATION TYPE: US chest DATE OF EXAM: 12/02/2020 COMPARISON: Chest x-ray earlier today CLINICAL HISTORY: rt sided effusion. Abnormal x-ray. TECHNIQUE: Targeted ultrasound of the posterior lower right hemithorax EXAM MEASUREMENTS: Right Pleural Effusion pocket size: 1.6 cm Right side NOT marked for possible thoracentesis outside the dept. Pulmonologists are able to review the images in the patient?s EMR. Tiny right pleural effusion on 4 images saved correlates with recent x-ray IMPRESSIONS: As above.
[2020-12-02] MEDS: ACETAMINOPHEN TAB 500 MG TAB PO PRN (15:05)
--- NOTE | 2020-12-02 15:49 | P.HPIM ---
History of Present Illness H&P Date: 12/02/20 Chief Complaint: Right pleuritic chest pain 80-year-old patient, Dr. 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 At her baseline uses a walker. Recently in the hospital and of October: Was admitted with asthma exacerbation. PE was ruled out. Cardiac catheterization showed minimal plaque in the proximal LAD. Severely tortuous coronary arteries. Medical management was advocated Patient is short of breath at baseline. Patient now presents with increasing shortness of breath. Right-sided pleuritic chest pain around the lower side at the rib cage. Slight cough. No chills. Appetite is fair. No edema. No fever no chills. Review of systems: GEN.: Tired EYES: None HEENT: None NECK: None RESPIRATORY: As above CARDIOVASCULAR: None GASTROINTESTINAL: None GENITOURINARY: None MUSCULOSKELETAL: Some joint pains LYMPHATICS: None HEMATOLOGICAL: None PSYCHIATRY: None NEUROLOGICAL: None Past medical history to include: Home oxygen, right diaphragm paralysis, moderate persistent asthma, moderate s econdary pulmonary hypertension, M.D. HF are gene mutation on xarelto, chronic pulmonary embolism and DVT, chronic abdominal wall hernia, hypertension, paroxysmal atrial fibrillation, Social history: Lives alone in the seated apartment. Home oxygen 2 L. Walker. No history of smoking or alcohol Family history: CAD. On examination: VITAL SIGNS: 99.3, 67, 18, 150/76, 93% on 2 L GENERAL APPEARANCE: BMI 33.1, reticulocyte laying in bed, tired some shortness of breath HEENT: Normal external appearance of nose and ear. Oral cavity normal EYES: Pupils equal. Conjunctiva normal. NECK: JVD not raised. Mass not palpable. RESPIRATORY: Respiratory effort increased. Lungs decreased breath sounds CARDIOVASCULAR: First and second sounds normal. No edema. ABDOMEN: Soft. Liver and spleen not palpable. No tenderness. No mass palpable. PSYCHIATRY: Alert and oriented x3. Mood and affect anxious INVESTIGATIONS, reviewed in the clinical context: White count 26.3 hemoglobin 14.3 platelets 388 potassium 3.6 BUN 25 creatinine 0.93 EKG tracing personally reviewed by me-atrial fibrillation, rate 116, some ST segment changes Chest x-ray film personally reviewed by me-elevated right diaphragm. Decreased lung volumes. Possible right-sided infiltrate Further investigations from 2 weeks ago: Cardiac catheterization: Minimal plaque in the proximal LAD. Severely tortuous coronary arteries. 2-D echocardiogram: EF 55-60%. [id number] mitral regurgitation Chest CTA: No major pulmonary embolism Assessment and plan: -Probable right-sided pneumonia. On Levaquin. -Acute exacerbation Moderate persistent asthma: DuoNeb every 4. IV Solu-Medrol -Moderate secondary pulmonary hypertension secondary to possibly asthma -MTHFR gene mutation Chronically on xarelto -Chronic pulmonary embolism and DVT patient On xarelto -Chronic hypoxic respiratory failure on home oxygen 2 L, from right diaphragm paralysis and asthma -Chronic abdominal wall hernia Follow clinically -Essential hypertension Cardizem 30 mg 3 times a day chlorthalidone 25 mg daily,, Cozaar 50 mg daily -Persistent atrial fibrillation, uncontrolled On xarelto. 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 Incentive spirometry -Anxiety depression Zoloft 150 mg a day -Chronic gait dysfunction Uses a walker at her baseline Consultation made to cardiology and pulmonary. Telemetry. Home medications resumed. DuoNeb every 4 and inhaled Pulmicort. Check pro-calcitonin. Past Medical History Past Medical History: Atrial Fibrillation, Asthma, Cancer, COPD, Diabetes Me llitus, Deep Vein Thrombosis (DVT), Eye Disorder, GERD/Reflux, Hyperlipidemia, Hypertension, Pneumonia, Pulmonary Embolus (PE) Additional Past Medical History / Comment(s): Paroxysmal afib, pt had traumatic fall 08/2018 and had takoMTHFR gene mutation, PEs x3, DVTs R arm and bilateral legs, hemolytic anemia, pericardial effusion with pericardial window, NIDDM type II-diet controlled now, R breast cancer with mastectomy, bronchitis, bronchial asthma, home oxygen at 2L/NC ATC, diverticulitis with bowel resection, constipation, chronic abdominal hernia, hiatal hernia, bilateral glaucoma. History of Any Multi-Drug Resistant Organisms: None Reported Past Surgical History: Appendectomy, Breast Surgery, Hysterectomy Additional Past Surgical History / Comment(s): [place] filter, pericardial window, cardiac caths, R mastectomy, colonoscopies/benign polypectomies, bowel resection for diverticulitis, spleenectomy d/t hemolytic anemia, abdominal hernia surgeries/mesh. Past Anesthesia/Blood Transfusion Reactions: No Reported Reaction Past Psychological History: Anxiety, Depression Smoking Status: Never smoker Past Alcohol Use History: None Reported Past Drug Use History: None Reported - Past Family History Mother Family Medical History: Coronary Artery Disease (CAD), Myocardial Infarction (MA) Additional Family Medical History / Comment(s): Mother had rheumatic fever. She had her first MA in her late 30s and of a MA at the age of 53 yrs. Father History Unknown: Yes Family Medical History: No Reported History Additional Family Medical History / Comment(s): Father in a traumatic accident when pt was 6 yrs old. Medications and Allergies Home Medications Medication Instructions Recorded Confirmed Type Atorvastatin Calcium [Lipitor] 10 mg PO AC-SUPPER 01/28/17 12/02/20 History Gabapentin [Neurontin] 300 mg PO TID 01/28/17 12/02/20 History Sertraline HCl [Zoloft] 150 mg PO DAILY 01/28/17 12/02/20 History Brinzolamide/Brimonidine Tart 1 drop BOTH EYES BID 12/06/19 12/02/20 History [Simbrinza 1%-0.2% Eye Drops] Rivaroxaban [Xarelto] 20 mg PO AC-SUPPER 12/06/19 12/02/20 History Betaxolol HCl [Betaxolol HCl 0.5% 1 drop BOTH EYES DAILY 11/16/20 12/02/20 History Ophth Soln] Bimatoprost [Lumigan .01% Ophth 1 drop BOTH EYES HS 11/16/20 12/02/20 History Soln] Losartan [Cozaar] 50 mg PO DAILY 11/16/20 12/02/20 History Chlorthalidone [Hygroton] 25 mg PO DAILY@1200 #0 11/21/20 12/02/20 Rx amLODIPine [Norvasc] 10 mg PO DAILY #30 tab 11/21/20 12/02/20 Rx polyethylene glycoL 3350 [Miralax] 17 gm PO DAILY 11/21/20 12/02/20 Rx clonazePAM [KlonoPIN] 1 mg PO BID 12/02/20 12/02/20 History Allergies Allergy/AdvReac Type Severity Reaction Status Date / Time Penicillins Allergy Rash/Hives Verified 12/02/20 08:43 Physical Exam Vitals: Vital Signs Temp Pulse Resp BP Pulse Ox 12/02/20 09:39 99.8 F H 12/02/20 09:38 68 19 127/56 95 12/02/20 07:22 100.5 F H 12/02/20 07:14 152 H 18 136/83 93 L Intake and Output 12/01/20 12/02/20 12/02/20 22:59 06:59 14:59 Other: Weight 79.379 kg Results CBC & Chem 7: 12/02/20 07:31 12/02/20 07:31 Labs: Abnormal Lab Results - Last 24 Hours (Table) 12/02/20 12/02/20 12/02/20 Range/Units 07:31 07:31 07:31 WBC 26.3 H (3.8-10.6) k/uL Neutrophils # 21.7 H (1.3-7.7) k/uL PT 14.0 H (9.0-12.0) sec INR 1.4 H (<1.2) Sodium 133 L (137-145) mmol/L Chloride 97 L (98-107) mmol/L BUN 25 H (7-17) mg/dL Glucose 178 H (74-99) mg/dL Total Bilirubin 1.4 H (0.2-1.3) mg/dL Total Protein 6.0 L (6.3-8.2) g/dL Albumin 3.2 L (3.5-5.0) g/dL Urine Protein (Negative) Urine Blood (Negative) Urine Bacteria (None) /hpf Hyaline Casts (0-2) /lpf Urine Mucus (None) /hpf 12/02/20 Range/Units 07:31 WBC (3.8-10.6) k/uL Neutrophils # (1.3-7.7) k/uL PT (9.0-12.0) sec INR (<1.2) Sodium (137-145) mmol/L Chloride (98-107) mmol/L BUN (7-17) mg/dL Glucose (74-99) mg/dL Total Bilirubin (0.2-1.3) mg/dL Total Protein (6.3-8.2) g/dL Albumin (3.5-5.0) g/dL Urine Protein Trace H (Negative) Urine Blood Trace H (Negative) Urine Bacteria Rare H (None) /hpf Hyaline Casts 6 H (0-2) /lpf Urine Mucus Occasional H (None) /hpf
[2020-12-02] MEDS: IPRATROPIUM-ALBUTEROL 3 ML NEB INHALATION SCH ×2 (16:23→18:33)
[2020-12-02 16:42] LABS: Glucose,Whole Blood 211 mg/dL (75-99)
--- NOTE | 2020-12-02 16:55 | CONS ---
CONSULTATION Mrs. Castro is a 80-year-old female who is followed by Dr. Phipps and Dr. Rivera who presented with right-sided chest discomfort. The discomfort was sharp, worse with deep breathing and certain positions. She was in the hospital recently with chest pain. She had mild elevation of troponin and underwent cardiac catheterization. She was found to have no evidence of obstructive disease. She has a prior history of pulmonary embolism and a history of IVC filter placement. She has been maintained on chronic anticoagulation. She has a history of paroxysmal atrial fibrillation, and on presentation today she was in atrial fibrillation, but she is back in sinus mechanism. She did not feel the palpitations. She did not feel dizzy, had no syncope. No peripheral edema. No clear PND or orthopnea. Her chest x-ray raised the question of a right upper lobe infiltrate and maybe a pleural effusion. She was seen by Dr. Benz. Her coronary risk factors are positive for hypertension and hyperlipidemia. She is nondiabetic. MEDICATIONS: Her medications include Neurontin, Lipitor 10 mg daily, Lumigan eye drops, chlorthalidone 25 mg daily, losartan 50 mg daily, Xarelto 20 mg daily, sertraline, amlodipine 10 mg daily, clonazepam and MiraLAX. REVIEW OF SYSTEMS: RESPIRATORY SYSTEM: She had dyspnea on exertion. She had the cough. Prior history of pulmonary embolism. GI SYSTEM: No recent GI bleeding. No peptic ulcer disease. SYSTEM: No dysuria or hematuria. NERVOUS SYSTEM: No stroke or seizure. PHYSICAL EXAMINATION: On presentation she was febrile at 100.5. She is 99.3 now. Her blood pressure is in the 150s with a heart rate in the 60s. She was in atrial fibrillation earlier with rapid ventricular response. HEAD: Normocephalic. Eyes: Sclerae anicteric. NECK: Good carotid upstroke. No bruit. No jugular venous distention. LUNGS: No wheezes or rales. There is mild decrease in the breath sounds at the bases and predominantly on the right base. HEART: Regular rate and rhythm. S1, S2 with systolic murmur, ejection type, 2/6. No diastolic murmur. No rub. ABDOMEN: Soft, nontender. Positive bowel sounds. No organomegaly. EXTREMITIES: No edema. LAB DATA: Lab data revealed a hemoglobin of 14.3, white blood cell count of 26.3, BUN and creatinine of 25 and 0.93. Troponin 0.028. TSH is 2.6, magnesium 1.9. She is negative for coronavirus. Her initial EKG revealed atrial fibrillation with rapid ventricular response and nonspecific ST-T wave changes and rare PVCs. IMPRESSION: 1. Right-sided chest discomfort, pleuritic in nature, with febrile episode. Rule out pneumonia. Workup in progress. 2. Pleural effusion. 3. Paroxysmal atrial fibrillation, back in sinus mechanism. 4. No evidence of high-grade coronary artery disease by cardiac catheterization performed recently. 5. Hypertension. 6. Hyperlipidemia. RECOMMENDATIONS: From the cardiac standpoint, will continue present therapy. There is no evidence of active cardiac disease. If she has a further episodes of atrial fibrillation, then further adjustment of her regimen can be made with possible addition of amiodarone. Thank you for this consult. Will follow with you. JACOB / ABBYN: [id number] /
[2020-12-02] MEDS ORDERED: RIVAROXABAN 20 MG TAB PO SCH (17:30)
[2020-12-02] MEDS: ATORVASTATIN 10 MG TAB PO SCH (17:34)
[2020-12-02] MEDS: DILTIAZEM ORAL 30 MG TAB PO SCH ×2 (17:34→21:54)
[2020-12-02] MEDS: GABAPENTIN 300 MG CAP PO SCH ×2 (17:34→21:54)
[2020-12-02] MEDS: INSULIN ASPART (NovoLOG) 100 UNIT/ML VIAL SQ SCH ×2 (17:35→21:05)
[2020-12-02] MEDS: BUDESONIDE 1 MG/2 ML NEBU INHALATION SCH (18:33)
[2020-12-02 20:04] LABS: Glucose,Whole Blood 165 mg/dL (75-99)
[2020-12-02] MEDS: LATANOPROST 0.005% OPHTH DROPS 2.5 ML BTL BOTH EYES SCH (21:00)
[2020-12-02] MEDS: clonazePAM 1 MG TAB PO SCH (21:05)
[2020-12-02] MEDS: BRIMONIDINE TARTRATE 0.2% DROPS 5 ML BTL BOTH EYES SCH (21:05)
[2020-12-03] MEDS: IPRATROPIUM-ALBUTEROL 3 ML NEB INHALATION SCH ×7 (01:15→23:40)
[2020-12-03] MEDS: methylPREDNISolone SOD SUCCI 40 MG/ML 1 ML VIAL IV SCH ×3 (04:02→20:19)
[2020-12-03 06:14] LABS: Glucose,Whole Blood 163 mg/dL (75-99)
[2020-12-03] MEDS: INSULIN ASPART (NovoLOG) 100 UNIT/ML VIAL SQ SCH ×4 (06:18→20:19)
--- NOTE | 2020-12-03 07:11 | XR ---
EXAMINATION TYPE: XR chest 2V DATE OF EXAM: 12/03/2020 COMPARISON: Chest x-ray from yesterday. HISTORY: Pneumonia. TECHNIQUE: Frontal and lateral views of the chest are obtained. FINDINGS: There are persistent low lung volumes and bibasilar opacities. Worsening right-sided pleur al fluid collection. The cardiac silhouette size is stable and within normal limits with atherosclero tic aorta. The osseous structures are demineralized. Partial visualization of malunion healed fract ure right proximal humerus. IMPRESSION: Persistent low lung volumes and bibasilar along with right upper lung acute infiltrates and/or atelectasis redemonstrated and stable. Small to moderate-sized right pleural fluid collection increased from one day earlier.
[2020-12-03] MEDS: BUDESONIDE 1 MG/2 ML NEBU INHALATION SCH ×2 (07:40→19:55)
[2020-12-03] MEDS: clonazePAM 1 MG TAB PO SCH ×2 (07:59→20:19)
[2020-12-03] MEDS: GABAPENTIN 300 MG CAP PO SCH ×3 (08:00→22:01)
[2020-12-03] MEDS: DILTIAZEM ORAL 30 MG TAB PO SCH ×3 (08:00→22:01)
[2020-12-03] MEDS: LOSARTAN 50 MG TAB PO SCH (08:00)
[2020-12-03] MEDS: LEVOFLOXACIN 750 MG TAB PO SCH (08:00)
[2020-12-03] MEDS: SERTRALINE 50 MG TAB PO SCH (08:01)
[2020-12-03] MEDS: polyethylene glycoL 3350 17 GM POWD.PACK PO SCH (08:01)
[2020-12-03] MEDS: DORZOLAMIDE HCL 2% DROPS 10 ML BTL BOTH EYES SCH (08:02)
[2020-12-03] MEDS: BRIMONIDINE TARTRATE 0.2% DROPS 5 ML BTL BOTH EYES SCH ×2 (08:02→20:19)
[2020-12-03] MEDS: TIMOLOL 0.5% OPHTH DROPS 5 ML BTL BOTH EYES SCH (08:03)
[2020-12-03 09:27] LABS: Potassium 3.3 mmol/L (3.5-5.1)
[2020-12-03 11:29] LABS: Glucose,Whole Blood 153 mg/dL (75-99)
[2020-12-03] MEDS: POTASSIUM CHLORIDE ER 20 MEQ TAB.ER PO SCH (11:37)
[2020-12-03] MEDS: CHLORTHALIDONE 25 MG TAB PO SCH (11:37)
[2020-12-03] MEDS: SODIUM CHLORIDE 0.9% 1,000 ML IV SCH (11:38)
--- NOTE | 2020-12-03 12:23 | PN ---
PROGRESS NOTE Mrs. Castro is a 80-year-old female who presented with symptoms of right-sided chest discomfort. She had atrial fibrillation. She is back in sinus mechanism. She continues to have respirophasic right-sided chest discomfort. She denies any dizziness or palpitations. She denies any nausea. The patient continues to be anticoagulated because of the paroxysmal atrial fibrillation. She had a chest x-ray performed that showed loculated effusion. She continues to be on atorvastatin, chlorthalidone, diltiazem 30 mg 3 times a day, Xarelto 20 mg daily, losartan 50 mg daily, in addition to Levaquin. PHYSICAL EXAMINATION: Blood pressure 134/50 with a heart rate in the 70s. Lungs with decreased breath sounds on the right side. HEART: Regular rate and rhythm. S1, S2. No S3. No rub appreciated. ABDOMEN: Soft and nontender. EXTREMITIES: No edema. IMPRESSION: 1. Right-sided chest discomfort, pleuritic. Possible pneumonia. The likelihood of new pulmonary embolism is low. Patient has a history of filter and has been anticoagulated. 2. Paroxysmal atrial fibrillation. 3. Mild coronary artery disease. 4. Hypokalemia. RECOMMENDATIONS: I will replace her potassium. Continue the rest of her medical regimen. She is scheduled to undergo CT scan today and, depending on those findings, further recommendations will be made. MMODL / IJN: [id number] /
[2020-12-03] MEDS ORDERED: LACTULOSE 20 GM/30 ML CUP PO ONE (12:54)
--- NOTE | 2020-12-03 13:07 | CT ---
EXAMINATION TYPE: CT chest angio for PE DATE OF EXAM: 12/03/2020 COMPARISON: Correlation made with CT scan from 11/16/2020. HISTORY: pneumonia, pleurisy, pleural effusion, rule out PE CT DLP: 380.2 mGycm Automated exposure control for dose reduction was used. CONTRAST: CT Chest for pulmonary embolism performed with with IV Contrast, patient injected with 100 mL of Isov ue 370. FINDINGS: LUNGS: The lungs are grossly clear, there is no concerning parenchymal mass or nodule identified. T here is no pleural effusion or pneumothorax seen. The tracheobronchial tree is patent. MEDIASTINUM: There is satisfactory enhancement of the pulmonary artery and its branches, there is no CT evidence for pulmonary embolism. There are no greater than 1 cm hilar or mediastinal lymph nodes. No pericardial effusion is seen. Main pulmonary artery trunk is markedly dilated measuring up to 4 cm suggesting pulmonary hypertensio n. Mild to moderate coronary artery disease is also noted. There is interval development of small left basilar consolidation/atelectasis. Interval development of loculated pleural effusion in the upper lung zones. IMPRESSION: 1. No evidence of pulmonary embolism. 2. Findings suggesting pulmonary hypertension. 3. Loculated pleural effusion and consolidation as noted above.
--- NOTE | 2020-12-03 13:22 | P.PN ---
Subjective Progress Note Date: 12/03/20 Principal diagnosis: Right-sided pleuritic chest pain This is a 80-year-old female whom I was asked to see for acute onset of right- sided chest pain. Patient woke up around 2 AM with chest discomfort in the right side. Pain was described as sharp and pleuritic. Worse with coughing and sometimes with certain position changes. Patient also had some shortness of breath, she had previous history of DVT and pulmonary embolism, however she is maintained on Xarelto and she is very compliant with it on a regular basis. Patient also had a previous history of IVC filter placement. Looking back at her previous admission on 11/17, patient presented back then with mostly symptoms of back pain, and shortness of breath. Workup on the last admission included CT angiogram of the chest, and it was negative for pulmonary embolism. On this admission she had a chest x-ray questioning a new infiltrate in the right upper lobe and a small right-sided pleural effusion. Considering the findings patient was admitted and this consult was initiated. Patient is known to have history of DVT pulmonary embolism IVC filter placement COPD diabetes diaphragm paralysis generalized anxiety disorder depressed cancer and previous right-sided mastectomy. On this admission patient was noted to have a WBC of 26.3 hemoglobin 14.3 electrolytes are normal renal profile is normal, negative PCR for COVID-19 infection On 12/03/2020 patient seen in follow-up on selective care unit, she states the right-sided chest pain is still there but has improved since admission, her chest x-ray today showing persistent low lung volumes, and bibasilar along with right upper lung acute infiltrate and/or atelectasis, small to moderate-sized right pleural fluid collection which is increased from chest x-ray on 12/02/2020. She is currently on 2 L of oxygen pulse ox is 93-94%, afebrile overnight, she continues on Levaquin for antibiotic coverage, she is ALLERGIC to penicillins. She continues on oral anticoagulation with Xarelto and she is on nebulized bronchodilators. CTA chest was completed, showed no evidence of pulmonary embolism, it did show likely with pleural effusion and consolidation in the right chest. Objective - Vital Signs Vital signs: Vital Signs Temp 97.6 F 12/03/20 12:00 Pulse 51 L 12/03/20 12:00 Resp 18 12/03/20 12:00 BP 113/55 12/03/20 12:00 Pulse Ox 93 L 12/03/20 12:00 Intake & Output 12/02/20 12/03/20 12/03/20 18:59 06:59 18:59 Intake Total 220 240 Output Total 400 Balance -180 240 Weight 79.379 kg 80.3 kg Intake: Oral 220 240 Output: Urine 400 Other: Voiding Method Bedside Commode Bedside Commode Bedside Commode # Voids 1 - Exam GENERAL EXAM: Alert, very pleasant, [id number] female patient that is approximately pulse ox 93% comfortable in no apparent distress. HEAD: Normocephalic/atraumatic. EYES: Normal reaction of pupils, equal size. Conjunctiva pink, sclera white. NOSE: Clear with pink turbinates. THROAT: No erythema or exudates. NECK: No masses, no JVD, no thyroid enlargement, no adenopathy. CHEST: No chest wall deformity. Symmetrical expansion. LUNGS: Equal air entry with diminished breath sounds and some crackles on the right CVS: Regular rate and rhythm, normal S1 and S2, no gallops, no murmurs, no rubs ABDOMEN: Soft, nontender. No hepatosplenomegaly, normal bowel sounds, no guarding or rigidity. EXTREMITIES: No clubbing, no edema, no cyanosis, 2+ pulses and upper and lower extremities. MUSCULOSKELETAL: Muscle strength and tone normal. SPINE: No scoliosis or deformity SKIN: No rashes CENTRAL NERVOUS SYSTEM: Alert and oriented -3. No focal deficits, tone is normal in all 4 extremities. PSYCHIATRIC: Alert and oriented -3. Appropriate affect. Intact judgment and insight. - Labs CBC & Chem 7: 12/02/20 07:31 12/03/20 08:33 Labs: Abnormal Lab Results - Last 24 Hours (Table) 12/02/20 12/02/20 12/03/20 Range/Units 16:40 19:43 05:46 Sodium (137-145) mmol/L Potassium (3.5-5.1) mmol/L BUN (7-17) mg/dL Glucose (74-99) mg/dL POC Glucose (mg/dL) 211 H 165 H 163 H (75-99) mg/dL 12/03/20 12/03/20 Range/Units 08:33 11:27 Sodium 135 L (137-145) mmol/L Potassium 3.3 L (3.5-5.1) mmol/L BUN 18 H (7-17) mg/dL Glucose 231 H (74-99) mg/dL POC Glucose (mg/dL) 153 H (75-99) mg/dL Microbiology - Last 24 Hours (Table) 12/02/20 08:07 Blood Culture - Preliminary Blood No Growth after 24 hours 12/02/20 08:00 Blood Culture - Preliminary Blood No Growth after 24 hours Assessment and Plan Plan: Assessment: #1. Possible right upper lobe pneumonia with loculated pleural effusion, rule out possibility of empyema versus malignancy. We'll place consult interventional radiology for pleural fluid drainage and pigtail chest tube catheter placement. Pleural fluid will need to be sent for cultures, and cytology. CT chest was negative for pulmonary embolism #2. Right-sided pleuritic chest pain related to the above #3. Recurrent pleuritic chest discomfort, patient had negative workup for pulmonary embolism, patient is on Xarelto, compliant, patient did have negative cardiac workup as well #4. Paroxysmal atrial fibrillation #5. Hypertension #6. History of MTHFR gene mutation #7. Type 2 diabetes mellitus #8. History of right-sided breast cancer with previous right sided mastectemy #9. History of splenectomy #10. History of bowel resection #11. History of IVC filter placement Plan: Chest x-ray and CTA chest reviewed Patient has a loculated right lung pleural effusions Continue antibiotics We will ask interventional radiology to drain the pleural effusions, possibly place a pigtail chest tube catheter, or to obtain a sample of the pleural fluid for analysis, cultures and cytology Patient could have an empyema. Possibility of malignancy is not excluded in view of her previous history of right-sided breast cancer We'll continue with current medical treatment right now Place Xarelto on hold for possibility of pigtail chest tube catheter placement I performed a history & physical examination of the patient and discussed their management with my nurse practitioner, Charmaine Rodriguez. I reviewed the nurse practitioner's note and agree with the documented findings and plan of care. Lung sounds are positive for diminished breath sounds throughout the lung mcgovern. The findings and the impression was discussed with the patient. I attest to the documentation by the nurse practitioner. Time with Patient: Less than 30
[2020-12-03 13:58] LABS: Total Protein 5.4 g/dL (6.3-8.2)
[2020-12-03 15:35] LABS: Hemoglobin A1C 6.6 % (4.0-6.0)
[2020-12-03 16:28] LABS: Glucose,Whole Blood 149 mg/dL (75-99)
[2020-12-03] MEDS: ATORVASTATIN 10 MG TAB PO SCH (16:43)
[2020-12-03] MEDS: LATANOPROST 0.005% OPHTH DROPS 2.5 ML BTL BOTH EYES SCH (20:19)
[2020-12-03 20:22] LABS: Glucose,Whole Blood 128 mg/dL (75-99)
[2020-12-04] MEDS: methylPREDNISolone SOD SUCCI 40 MG/ML 1 ML VIAL IV SCH ×3 (03:19→20:53)
[2020-12-04] MEDS: IPRATROPIUM-ALBUTEROL 3 ML NEB INHALATION SCH ×6 (03:34→23:45)
[2020-12-04 06:23] LABS: Glucose,Whole Blood 170 mg/dL (75-99)
[2020-12-04] MEDS: INSULIN ASPART (NovoLOG) 100 UNIT/ML VIAL SQ SCH ×4 (06:30→20:53)
[2020-12-04] MEDS: SODIUM CHLORIDE 0.9% 1,000 ML IV SCH (06:33)
[2020-12-04] MEDS: BUDESONIDE 1 MG/2 ML NEBU INHALATION SCH ×2 (07:54→19:37)
[2020-12-04 08:14] LABS: Calcium 10.4 mg/dL (8.4-10.2); Potassium 3.8 mmol/L (3.5-5.1)
[2020-12-04] MEDS: polyethylene glycoL 3350 17 GM POWD.PACK PO SCH (09:19)
[2020-12-04] MEDS: clonazePAM 1 MG TAB PO SCH ×2 (09:20→20:53)
[2020-12-04] MEDS: GABAPENTIN 300 MG CAP PO SCH ×3 (09:20→20:54)
[2020-12-04] MEDS: DILTIAZEM ORAL 30 MG TAB PO SCH ×3 (09:20→20:53)
[2020-12-04] MEDS: LEVOFLOXACIN 750 MG TAB PO SCH (09:20)
[2020-12-04] MEDS: LOSARTAN 50 MG TAB PO SCH (09:20)
[2020-12-04] MEDS: POTASSIUM CHLORIDE ER 20 MEQ TAB.ER PO SCH (09:21)
[2020-12-04] MEDS: BRIMONIDINE TARTRATE 0.2% DROPS 5 ML BTL BOTH EYES SCH ×2 (09:22→20:54)
[2020-12-04] MEDS: DORZOLAMIDE HCL 2% DROPS 10 ML BTL BOTH EYES SCH (09:22)
[2020-12-04] MEDS: SERTRALINE 50 MG TAB PO SCH (09:25)
[2020-12-04] MEDS: TIMOLOL 0.5% OPHTH DROPS 5 ML BTL BOTH EYES SCH (09:29)
[2020-12-04] MEDS ORDERED: LORazepam 0.5 MG TAB PO STA (10:45)
[2020-12-04] MEDS ORDERED: HYDROmorphone 0.5 MG/0.5 ML SYRINGE IVP STA (11:44)
--- NOTE | 2020-12-04 12:10 | XR ---
EXAMINATION TYPE: XR chest 1V portable DATE OF EXAM: 12/04/2020 HISTORY: Thoracentesis COMPARISON: 12/03/2020 TECHNIQUE: Single view of the chest is submitted. FINDINGS: No evidence for a visible pneumothorax. Loculated density right upper lobe persists although appears to be smaller in size. Basilar linear at electasis noted. The heart is stable. Hilar and mediastinal structures are within normal limits. Degenerative changes are seen of the dorsal spine. IMPRESSION: 1. No evidence for pneumothorax.
--- NOTE | 2020-12-04 12:15 | CT ---
EXAMINATION TYPE: CT guided aspiration DATE OF EXAM: 12/04/2020 COMPARISON: 12/03/2020 HISTORY: Right side pleural effusion aspiration. CT DLP: 1753 mGycm The procedure is discussed with the patient, the risks, complications, benefits and alternatives, wer e discussed and any questions were answered. Informed consent was obtained. The patient is placed p angelia on the CT table, prepped and draped in the usual sterile fashion. The tiny fluid collection within the posterior right lung was accessed with a one-step catheter. No s izable aspirate could be obtained. Due to the small size of the collection procedure no sizable aspir ate and could safely be obtained. Therefore, the procedure was discontinued. All elements of maximal barrier technique were utilized. The patient remained stable throughout the procedure with no immedi ate postprocedural complication. IMPRESSION: 1. Sizable nonvascular could be obtained for tiny right-sided pleural effusion.
[2020-12-04 12:24] LABS: Glucose,Whole Blood 191 mg/dL (75-99)
[2020-12-04] MEDS: CHLORTHALIDONE 25 MG TAB PO SCH (12:42)
--- NOTE | 2020-12-04 13:37 | P.PN ---
Subjective Progress Note Date: 12/04/20 Principal diagnosis: Right-sided pleuritic chest pain This is a 80-year-old female whom I was asked to see for acute onset of right- sided chest pain. Patient woke up around 2 AM with chest discomfort in the right side. Pain was described as sharp and pleuritic. Worse with coughing and sometimes with certain position changes. Patient also had some shortness of breath, she had previous history of DVT and pulmonary embolism, however she is maintained on Xarelto and she is very compliant with it on a regular basis. Patient also had a previous history of IVC filter placement. Looking back at her previous admission on 11/17, patient presented back then with mostly symptoms of back pain, and shortness of breath. Workup on the last admission included CT angiogram of the chest, and it was negative for pulmonary embolism. On this admission she had a chest x-ray questioning a new infiltrate in the right upper lobe and a small right-sided pleural effusion. Considering the findings patient was admitted and this consult was initiated. Patient is known to have history of DVT pulmonary embolism IVC filter placement COPD diabetes diaphragm paralysis generalized anxiety disorder depressed cancer and previous right-sided mastectomy. On this admission patient was noted to have a WBC of 26.3 hemoglobin 14.3 electrolytes are normal renal profile is normal, negative PCR for COVID-19 infection On 12/03/2020 patient seen in follow-up on selective care unit, she states the right-sided chest pain is still there but has improved since admission, her chest x-ray today showing persistent low lung volumes, and bibasilar along with right upper lung acute infiltrate and/or atelectasis, small to moderate-sized right pleural fluid collection which is increased from chest x-ray on 12/02/2020. She is currently on 2 L of oxygen pulse ox is 93-94%, afebrile overnight, she continues on Levaquin for antibiotic coverage, she is ALLERGIC to penicillins. She continues on oral anticoagulation with Xarelto and she is on nebulized bronchodilators. CTA chest was completed, showed no evidence of pulmonary embolism, it did show likely with pleural effusion and consolidation in the right chest. On 12/04/2020 patient is seen in follow-up on selective care unit, she states she is overall feeling better, right-sided chest discomfort is improved, she is breathing fairly comfortably, she is awake and alert, oriented 3, she is on 2 L of oxygen pulse ox is 95%, no fever or chills overnight, blood pressure has been stable, occasional cough, with no phlegm production. We consulted interventional radiology for possibility of right-sided pigtail chest tube placement however they felt that fluid pocket was very small and were unable to place a chest tube. We requested that a small sample of pleural fluid, and interventional radiology did attempt that under ultrasound guidance however the fluid pocket was too small even for diagnostic thoracentesis. Patient continues on Levaquin for empiric antibiotic coverage, she is on IV Solu-Medrol, and breathing treatments, Xarelto was placed on hold yesterday for possibility of right-sided thoracentesis or chest tube placement. Today's labs have been reviewed, BNP results are available only, CBC is pending, electrolytes are within normal limits, B1 is 23 creatinine 0.79. Legionella urine antigen was negative, and COVID-19 PCR was negative. Cultures have shown no growth. Objective - Vital Signs Vital signs: Vital Signs Temp 98.1 F 12/04/20 08:00 Pulse 58 L 12/04/20 11:50 Resp 18 12/04/20 11:50 BP 135/67 12/04/20 11:50 Pulse Ox 95 12/04/20 11:50 Intake & Output 12/03/20 12/04/20 12/04/20 18:59 06:59 18:59 Intake Total 1040 240 Output Total 0 Balance 1040 240 Weight 80 kg Intake: Intake, IV Titration 800 Amount Sodium Chloride 0.9% 1, 800 000 ml @ 50 mls/hr IV . Q20H [facility] Rx#:[id number] Oral 240 240 Output: Urine/Stool Mix 0 Other: Voiding Method Bedside Commode Bedside Commode Bedside Commode # Voids 1 1 - Exam GENERAL EXAM: Alert, very pleasant, [id number] female patient on 2 L of oxygen with pulse ox 93% comfortable in no apparent distress. HEAD: Normocephalic/atraumatic. EYES: Normal reaction of pupils, equal size. Conjunctiva pink, sclera white. NOSE: Clear with pink turbinates. THROAT: No erythema or exudates. NECK: No masses, no JVD, no thyroid enlargement, no adenopathy. CHEST: No chest wall deformity. Symmetrical expansion. LUNGS: Equal air entry with diminished breath sounds and some crackles on the right CVS: Regular rate and rhythm, normal S1 and S2, no gallops, no murmurs, no rubs ABDOMEN: Soft, nontender. No hepatosplenomegaly, normal bowel sounds, no guardi ng or rigidity. EXTREMITIES: No clubbing, no edema, no cyanosis, 2+ pulses and upper and lower extremities. MUSCULOSKELETAL: Muscle strength and tone normal. SPINE: No scoliosis or deformity SKIN: No rashes CENTRAL NERVOUS SYSTEM: Alert and oriented -3. No focal deficits, tone is normal in all 4 extremities. PSYCHIATRIC: Alert and oriented -3. Appropriate affect. Intact judgment and insight. - Labs CBC & Chem 7: 12/02/20 07:31 12/04/20 07:26 Labs: Abnormal Lab Results - Last 24 Hours (Table) 12/03/20 12/03/20 12/03/20 Range/Units 08:33 08:33 16:25 BUN (7-17) mg/dL Glucose (74-99) mg/dL POC Glucose (mg/dL) 149 H (75-99) mg/dL Hemoglobin A1c 6.6 H (4.0-6.0) % Calcium (8.4-10.2) mg/dL Total Protein 5.4 L (6.3-8.2) g/dL 12/03/20 12/04/20 12/04/20 Range/Units 19:53 06:10 07:26 BUN 23 H (7-17) mg/dL Glucose 124 H (74-99) mg/dL POC Glucose (mg/dL) 128 H 170 H (75-99) mg/dL Hemoglobin A1c (4.0-6.0) % Calcium 10.4 H (8.4-10.2) mg/dL Total Protein (6.3-8.2) g/dL 12/04/20 Range/Units 12:18 BUN (7-17) mg/dL Glucose (74-99) mg/dL POC Glucose (mg/dL) 191 H (75-99) mg/dL Hemoglobin A1c (4.0-6.0) % Calcium (8.4-10.2) mg/dL Total Protein (6.3-8.2) g/dL Microbiology - Last 24 Hours (Table) 12/02/20 08:00 Blood Culture - Preliminary Blood No Growth after 48 hours 12/02/20 08:07 Blood Culture - Preliminary Blood No Growth after 48 hours Assessment and Plan Plan: Assessment: #1. Possible right upper lobe pneumonia with loculated pleural effusion, rule out possibility of empyema versus malignancy. Interventional radiology was unable to place right-sided pigtail chest tube or obtain pleural fluid for analysis related to small size of the pleural effusion. CT chest was negative for pulmonary embolism #2. Right-sided pleuritic chest pain related to the above #3. Recurrent pleuritic chest discomfort, patient had negative workup for pulmonary embolism, patient is on Xarelto, compliant, patient did have negative cardiac workup as well #4. Paroxysmal atrial fibrillation #5. Hypertension #6. History of MTHFR gene mutation #7. Type 2 diabetes mellitus #8. History of right-sided breast cancer with previous right sided mastectemy #9. History of splenectomy #10. History of bowel resection #11. History of IVC filter placement Plan: Diminished radiology was unable to obtain pleural fluid for analysis We'll continue medical treatment at this time, continue antibiotics IV steroids and bronchodilators We'll resume her home dose Xarelto Clinically she is stable, improving We'll continue to follow her clinical course and make further recommendations I performed a history & physical examination of the patient and discussed their management with my nurse practitioner, Charmaine Rodriguez. I reviewed the nurse practitioner's note and agree with the documented findings and plan of care. Lung sounds are positive for diminished breath sounds throughout the lung mcgovern. The findings and the impression was discussed with the patient. I attest to the documentation by the nurse practitioner. Time with Patient: Less than 30
--- NOTE | 2020-12-04 14:54 | P.PN ---
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 At her baseline uses a walker. Recently in the hospital and of October: Was admitted with asthma exacerbation. PE was ruled out. Cardiac catheterization showed minimal plaque in the proximal LAD. Severely tortuous coronary arteries. Medical management was advocated Patient is short of breath at baseline. Patient now presents with increasing shortness of breath. Right-sided pleuritic chest pain around the lower side at the rib cage. Slight cough. No chills. Appetite is fair. No edema. No fever no chills. December 03: Underwent computed tomography scan of the chest. For possible thoracentesis. Pleuritic pain is better. Breathing is better. Oral intake fair. Family present. On IV Zosyn Review of systems: Was done for constitutional, cardiovascular, GI, pulmonary. relevant finding as above Current medications reviewed in today's electronic records Past medical history to include: Home oxygen, right diaphragm paralysis, moderate persistent asthma, moderate secondary pulmonary hypertension, M.D. HF are gene mutation on xarelto, chronic pulmonary embolism and DVT, chronic abdominal wall hernia, hypertension, paroxysmal atrial fibrillation, Social history: Lives alone in the seated apartment. Home oxygen 2 L. Walker. No history of smoking or alcohol Family history: CAD. On examination: VITAL SIGNS: 98.6, 63, 18, 1:30/68, 94% on 2 L L GENERAL APPEARANCE: Sitting up in bed , decreased shortness of breath HEENT: Normal external appearance of nose and ear. Oral cavity normal EYES: Pupils equal. Conjunctiva normal. NECK: JVD not raised. Mass not palpable. RESPIRATORY: Respiratory effort increased. Lungs decreased breath sounds CARDIOVASCULAR: First and second sounds normal. No edema. ABDOMEN: Soft. Liver and spleen not palpable. No tenderness. No mass palpable. PSYCHIATRY: Alert and oriented x3. Mood and affect anxious INVESTIGATIONS, reviewed in the clinical context: December 03: Potassium 3.3 creatinine 0.79 pro-calcitonin 0.05 White count 26.3 hemoglobin 14.3 platelets 388 potassium 3.6 BUN 25 creatinine 0.93 EKG tracing personally reviewed by me-atrial fibrillation, rate 116, some ST segment changes Chest x-ray film personally reviewed by me-elevated right diaphragm. Decreased lung volumes. Possible right-sided infiltrate Further investigations from 2 weeks ago: Cardiac catheterization: Minimal plaque in the proximal LAD. Severely tortuous coronary arteries. 2-D echocardiogram: EF 55-60%. Gofh-ow-dpljchgh mitral regurgitation Chest CTA: No major pulmonary embolism Assessment and plan: -Probable right-sided pneumonia. On Levaquin. -Right-sided pleuritic chest pain from pneumonia, improving -Acute exacerbation Moderate persistent asthma: Improving DuoNeb every 4. IV Solu-Medrol -Moderate secondary pulmonary hypertension secondary to possibly asthma -MTHFR gene mutation Chronically on xarelto -Chronic pulmonary embolism and DVT patient On xarelto -Chronic hypoxic respiratory failure on home oxygen 2 L, from right diaphragm paralysis and asthma -Chronic abdominal wall hernia Follow clinically -Essential hypertension Cardizem 30 mg 3 times a day chlorthalidone 25 mg daily,, Cozaar 50 mg daily -Persistent atrial fibrillation, uncontrolled On xarelto. 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 Incentive spirometry -Anxiety depression Zoloft 150 mg a day -Chronic gait dysfunction Uses a walker at her baseline Continue bronchodilators, IV steroids. Levaquin. Other medications to continue. Doubt significant pleural effusion. Discussed with the patient.
--- NOTE | 2020-12-04 14:58 | P.PN ---
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 At her baseline uses a walker. Recently in the hospital and of October: Was admitted with asthma exacerbation. PE was ruled out. Cardiac catheterization showed minimal plaque in the proximal LAD. Severely tortuous coronary arteries. Medical management was advocated Patient is short of breath at baseline. Patient now presents with increasing shortness of breath. Right-sided pleuritic chest pain around the lower side at the rib cage. Slight cough. No chills. Appetite is fair. No edema. No fever no chills. December 03: Underwent computed tomography scan of the chest. For possible thoracentesis. Pleuritic pain is better. Breathing is better. Oral intake fair. Family present. On IV Zosyn December 04: Patient went down to interventional radiology for thoracentesis. Because of small pleural effusion no fluid was obtained. Patient right pleuritic chest pain greatly improved. Eating well. Discussed with the patient's family at the bedside. Also the patient. Hopefully discharge tomorrow Review of systems: Was done for constitutional, cardiovascular, GI, pulmonary. relevant finding as above Past medical history to include: Home oxygeActive Medications Acetaminophen (Acetaminophen Tab 500 Mg Tab) 500 mg PO Q6HR PRN PRN Reason: Fever and/ or Pain Last Admin: 12/02/20 15:05 Dose: 500 mg Documented by: Albuterol/Ipratropium (Ipratropium-Albuterol 3 Ml Neb) 3 ml INHALATION RT-Q4H PRN PRN Reason: shortness of breath Albuterol/Ipratropium (Ipratropium-Albuterol 3 Ml Neb) 3 ml INHALATION RT-Q4H JOHNY Last Admin: 12/04/20 12:00 Dose: Not Given Documented by: Atorvastatin Calcium (Atorvastatin 10 Mg Tab) 10 mg PO AC-SUPPER JOHNY Last Admin: 12/03/20 16:43 Dose: 10 mg Documented by: Brimonidine Tartrate (Brimonidine Tartrate 0.2% Drops 5 Ml Btl) 1 drops BOTH EYES BID [facility] Last Admin: 12/04/20 09:22 Dose: 1 drops Documented by: Budesonide (Budesonide 1 Mg/2 Ml Nebu) 1 mg INHALATION RT-BID [facility] Last Admin: 12/04/20 07:54 Dose: 1 mg Documented by: Chlorthalidone (Chlorthalidone 25 Mg Tab) 25 mg PO DAILY@1200 [facility] Last Admin: 12/04/20 12:42 Dose: 25 mg Documented by: Clonazepam (Clonazepam 1 Mg Tab) 1 mg PO BID [facility] Last Admin: 12/04/20 09:20 Dose: 1 mg Documented by: Diltiazem HCl (Diltiazem Oral 30 Mg Tab) 30 mg PO TID [facility] Last Admin: 12/04/20 09:20 Dose: 30 mg Documented by: Dorzolamide HCl (Dorzolamide Hcl 2% Drops 10 Ml Btl) 1 drops BOTH EYES DAILY [facility] Last Admin: 12/04/20 09:22 Dose: 1 drops Documented by: Gabapentin (Gabapentin 300 Mg Cap) 300 mg PO TID [facility] Last Admin: 12/04/20 09:20 Dose: 300 mg Documented by: Sodium Chloride (Saline 0.9%) 1,000 mls @ 50 mls/hr IV .Q20H [facility] Last Admin: 12/04/20 06:33 Dose: 50 mls/hr Documented by: Insulin Aspart (Insulin Aspart (Novolog) 100 Unit/Ml Vial) 0 unit SQ ACHS [facility]; Protocol Last Admin: 12/04/20 12:42 Dose: 5 unit Documented by: Latanoprost (Latanoprost 0.005% Ophth Drops 2.5 Ml Btl) 1 drops BOTH EYES HS [facility] Last Admin: 12/03/20 20:19 Dose: 1 drops Documented by: Levofloxacin (Levofloxacin 750 Mg Tab) 750 mg PO Q48H [facility] Stop: 12/06/20 12:00 Losartan Potassium (Losartan 50 Mg Tab) 50 mg PO DAILY [facility] Last Admin: 12/04/20 09:20 Dose: 50 mg Documented by: Methylprednisolone Sodium Succinate (Methylprednisolone Sod Succi 40 Mg/Ml 1 Ml Vial) 40 mg IV Q8H [facility] Last Admin: 12/04/20 12:42 Dose: 40 mg Documented by: Miscellaneous Information (Pneumonia Protocol Utilized 1 Each Misc) 1 each PO ONCE PRN PRN Reason: Per Protocol Polyethylene Glycol (Polyethylene Glycol 3350 17 Gm Powd.Pack) 17 gm PO DAILY [facility] Last Admin: 12/04/20 09:19 Dose: 17 gm Documented by: Potassium Chloride (Potassium Chloride Er 20 Meq Tab.Er) 20 meq PO DAILY [facility] Last Admin: 12/04/20 09:21 Dose: 20 meq Documented by: Rivaroxaban (Rivaroxaban 20 Mg Tab) 20 mg PO W/SUPPER [facility]; Protocol Sertraline HCl (Sertraline 50 Mg Tab) 150 mg PO DAILY [facility] Last Admin: 12/04/20 09:25 Dose: 150 mg Documented by: Timolol Maleate (Timolol 0.5% Ophth Drops 5 Ml Btl) 1 drops BOTH EYES DAILY [facility] Last Admin: 12/04/20 09:29 Dose: Not Given Documented by: n, right diaphragm paralysis, moderate persistent asthma, moderate secondary pulmonary hypertension, M.D. HF are gene mutation on xarelto, chronic pulmonary embolism and DVT, chronic abdominal wall hernia, hypertension, paroxysmal atrial fibrillation, Social history: Lives alone in the seated apartment. Home oxygen 2 L. Walker. No history of s moking or alcohol Family history: CAD. On examination: VITAL SIGNS: Afebrile, 59, 18, 131/64, 96% on 2 L GENERAL APPEARANCE: Sitting up in bed , decreased shortness of breath HEENT: Normal external appearance of nose and ear. Oral cavity normal EYES: Pupils equal. Conjunctiva normal. NECK: JVD not raised. Mass not palpable. RESPIRATORY: Respiratory effort increased. Lungs decreased breath sounds CARDIOVASCULAR: First and second sounds normal. No edema. ABDOMEN: Soft. Liver and spleen not palpable. No tenderness. No mass palpable. PSYCHIATRY: Alert and oriented x3. Mood and affect anxious INVESTIGATIONS, reviewed in the clinical context: December 03: Potassium 3.3 creatinine 0.79 pro-calcitonin 0.05 White count 26.3 hemoglobin 14.3 platelets 388 potassium 3.6 BUN 25 creatinine 0 .93 EKG tracing personally reviewed by me-atrial fibrillation, rate 116, some ST segment changes Chest x-ray film personally reviewed by me-elevated right diaphragm. Decreased lung volumes. Possible right-sided infiltrate Further investigations from 2 weeks ago: Cardiac catheterization: Minimal plaque in the proximal LAD. Severely tortuous coronary arteries. 2-D echocardiogram: EF 55-60%. Yupi-sq-voosunuc mitral regurgitation Chest CTA: No major pulmonary embolism Assessment and plan: -Probable right-sided pneumonia-much improved. On Levaquin. -Right-sided pleuritic chest pain from pneumonia, improving -Acute exacerbation Moderate persistent asthma: Improving DuoNeb every 4. IV Solu-Medrol -Moderate secondary pulmonary hypertension secondary to possibly asthma -MTHFR gene mutation Chronically on xarelto -Chronic pulmonary embolism and DVT patient On xarelto -Chronic hypoxic respiratory failure on home oxygen 2 L, from right diaphragm paralysis and asthma -Chronic abdominal wall hernia Follow clinically -Essential hypertension Cardizem 30 mg 3 times a day chlorthalidone 25 mg daily,, Cozaar 50 mg daily -Persistent atrial fibrillation, uncontrolled On xarelto. 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 Incentive spirometry -Anxiety depression Zoloft 150 mg a day -Chronic gait dysfunction Uses a walker at her baseline Continue bronchodilators, IV steroids-scale back. Levaquin. Other medications to continue. Discussed with patient and family. Hopefully home tomorrow.
--- NOTE | 2020-12-04 15:28 | P.PN ---
Subjective This is a 80-year-old female with a past medical history of paroxysmal atrial fibrillation on Xarelto, nonobstructive coronary artery disease, COPD with home oxygen use, moderate aortic regurgitation, hypertension, hyperlipidemia, pulmonary embolism with IVC filter placement.. She follows in the office with Dr. Rivera. We have been asked to see the patient in consultation for chest pain. Troponin negative x 1. She had a recent cardiac catheterization in October 2020 which found no evidence of obstructive disease. Echocardiogram in October 2020 revealed EF 55-60%, mild to moderate MR, mild tricuspid regurgitation. Patient seen at bedside, no acute distress. She continues to have intermittent right-sided chest discomfort. Denies any dizziness, palpitations, nausea, lightheadedness. Patient underwent CT-guided aspiration today which could not be obtained due to the size of the right sided pleural effusion being too small. She is currently maintained on atorvastatin 10 mg daily, Cardizem 30 mg 3 times a day, Xarelto 20 mg daily, losartan 50 mg daily. Laboratory data reviewed sodium 139, potassium 3.8, BUN 23, serum creatinine 0.7, COVID-19 PCR negative. Telemetry reviewed patient is currently in sinus mechanism heart rate 50s60s. PHYSICAL EXAM: VITAL SIGNS: Reviewed. GENERAL: Well-developed in no acute distress. HEENT: Neck supple. No JVD or thyromegaly LUNGS: Respirations even and unlabored. Lungs diminished to auscultation bilaterally. HEART: Regular rate and rhythm. S1 and S2 heard. Systolic murmur noted ABDOMEN: Soft. Nondistended. Nontender. EXTREMITIES: Normal range of motion. No clubbing or cyanosis. Peripheral pulses intact. No lower extremity edema NEUROLOGIC: Awake and alert. Oriented x 3. ASSESSMENT: Chest pain, right-sided, appears to be pleuritic in nature. Paroxysmal atrial fibrillation, on anticoagulation with Xarelto COPD with home oxygen use Moderate aortic regurgitation Hypertension Hyperlipidemia Nonobstructive coronary artery disease PLAN: Continue home cardiac medication statin, losartan, Xarelto Discontinue amlodipine Continue Cardizem 30mg TID Xarelto was head for CT guided aspiration and has been restarted From cardiology perspective no further workup at this time. Will follow the patient as needed. Please reconsult if needed. Objective - Vital Signs Vital signs: Vital Signs Temp 98.1 F 12/04/20 08:00 Pulse 58 L 12/04/20 11:50 Resp 18 12/04/20 11:50 BP 135/67 12/04/20 11:50 Pulse Ox 95 12/04/20 11:50 Intake & Output 12/03/20 12/04/20 12/04/20 18:59 06:59 18:59 Intake Total 1040 240 Output Total 0 Balance 1040 240 Weight 80 kg Intake: Intake, IV Titration 800 Amount Sodium Chloride 0.9% 1, 800 000 ml @ 50 mls/hr IV . Q20H [facility] Rx#:[id number] Oral 240 240 Output: Urine/Stool Mix 0 Other: Voiding Method Bedside Commode Bedside Commode Bedside Commode # Voids 1 1 - Labs CBC & Chem 7: 12/02/20 07:31 12/04/20 07:26 Labs: Abnormal Lab Results - Last 24 Hours (Table) 12/03/20 12/03/20 12/03/20 Range/Units 08:33 16:25 19:53 BUN (7-17) mg/dL Glucose (74-99) mg/dL POC Glucose (mg/dL) 149 H 128 H (75-99) mg/dL Hemoglobin A1c 6.6 H (4.0-6.0) % Calcium (8.4-10.2) mg/dL 12/04/20 12/04/20 12/04/20 Range/Units 06:10 07:26 12:18 BUN 23 H (7-17) mg/dL Glucose 124 H (74-99) mg/dL POC Glucose (mg/dL) 170 H 191 H (75-99) mg/dL Hemoglobin A1c (4.0-6.0) % Calcium 10.4 H (8.4-10.2) mg/dL Microbiology - Last 24 Hours (Table) 12/02/20 08:00 Blood Culture - Preliminary Blood No Growth after 48 hours 12/02/20 08:07 Blood Culture - Preliminary Blood No Growth after 48 hours
[2020-12-04] MEDS: ACETAMINOPHEN TAB 500 MG TAB PO PRN (16:21)
[2020-12-04 16:54] LABS: Glucose,Whole Blood 114 mg/dL (75-99)
[2020-12-04] MEDS: RIVAROXABAN 20 MG TAB PO SCH (17:36)
[2020-12-04] MEDS: ATORVASTATIN 10 MG TAB PO SCH (17:36)
[2020-12-04 19:53] LABS: Glucose,Whole Blood 202 mg/dL (75-99)
[2020-12-04] MEDS: LATANOPROST 0.005% OPHTH DROPS 2.5 ML BTL BOTH EYES SCH (20:54)
[2020-12-05] MEDS: IPRATROPIUM-ALBUTEROL 3 ML NEB INHALATION SCH ×5 (04:14→19:56)
[2020-12-05 06:15] LABS: Glucose,Whole Blood 187 mg/dL (75-99)
[2020-12-05] MEDS: INSULIN ASPART (NovoLOG) 100 UNIT/ML VIAL SQ SCH ×4 (06:42→20:30)
[2020-12-05] MEDS: SODIUM CHLORIDE 0.9% 1,000 ML IV SCH (06:43)
[2020-12-05] MEDS: methylPREDNISolone SOD SUCCI 40 MG/ML 1 ML VIAL IV SCH ×2 (08:46→20:40)
[2020-12-05] MEDS: BRIMONIDINE TARTRATE 0.2% DROPS 5 ML BTL BOTH EYES SCH ×2 (08:47→20:28)
[2020-12-05] MEDS: DORZOLAMIDE HCL 2% DROPS 10 ML BTL BOTH EYES SCH (08:47)
[2020-12-05] MEDS: GABAPENTIN 300 MG CAP PO SCH ×3 (08:48→20:39)
[2020-12-05] MEDS: clonazePAM 1 MG TAB PO SCH ×2 (08:48→20:39)
[2020-12-05] MEDS: SERTRALINE 50 MG TAB PO SCH (08:48)
[2020-12-05] MEDS: POTASSIUM CHLORIDE ER 20 MEQ TAB.ER PO SCH (08:48)
[2020-12-05] MEDS: polyethylene glycoL 3350 17 GM POWD.PACK PO SCH (08:48)
[2020-12-05] MEDS: LOSARTAN 50 MG TAB PO SCH (08:48)
[2020-12-05] MEDS: BUDESONIDE 1 MG/2 ML NEBU INHALATION SCH ×2 (08:52→19:56)
[2020-12-05] MEDS: DILTIAZEM ORAL 30 MG TAB PO SCH ×3 (09:43→20:39)
[2020-12-05 11:33] LABS: Glucose,Whole Blood 160 mg/dL (75-99)
[2020-12-05] MEDS: CHLORTHALIDONE 25 MG TAB PO SCH (12:14)
[2020-12-05] MEDS: ACETAMINOPHEN TAB 500 MG TAB PO PRN ×2 (12:14→20:40)
--- NOTE | 2020-12-05 14:02 | P.PN ---
Subjective Progress Note Date: 12/05/20 Principal diagnosis: Right-sided pleuritic chest pain This is a 80-year-old female whom I was asked to see for acute onset of right- sided chest pain. Patient woke up around 2 AM with chest discomfort in the right side. Pain was described as sharp and pleuritic. Worse with coughing and sometimes with certain position changes. Patient also had some shortness of breath, she had previous history of DVT and pulmonary embolism, however she is maintained on Xarelto and she is very compliant with it on a regular basis. Patient also had a previous history of IVC filter placement. Looking back at her previous admission on 11/17, patient presented back then with mostly symptoms of back pain, and shortness of breath. Workup on the last admission included CT angiogram of the chest, and it was negative for pulmonary embolism. On this admission she had a chest x-ray questioning a new infiltrate in the right upper lobe and a small right-sided pleural effusion. Considering the findings patient was admitted and this consult was initiated. Patient is known to have history of DVT pulmonary embolism IVC filter placement COPD diabetes diaphragm paralysis generalized anxiety disorder depressed cancer and previous right-sided mastectomy. On this admission patient was noted to have a WBC of 26.3 hemoglobin 14.3 electrolytes are normal renal profile is normal, negative PCR for COVID-19 infection On 12/03/2020 patient seen in follow-up on selective care unit, she states the right-sided chest pain is still there but has improved since admission, her chest x-ray today showing persistent low lung volumes, and bibasilar along with right upper lung acute infiltrate and/or atelectasis, small to moderate-sized right pleural fluid collection which is increased from chest x-ray on 12/02/2020. She is currently on 2 L of oxygen pulse ox is 93-94%, afebrile overnight, she continues on Levaquin for antibiotic coverage, she is ALLERGIC to penicillins. She continues on oral anticoagulation with Xarelto and she is on nebulized bronchodilators. CTA chest was completed, showed no evidence of pulmonary embolism, it did show likely with pleural effusion and consolidation in the right chest. On 12/04/2020 patient is seen in follow-up on selective care unit, she states she is overall feeling better, right-sided chest discomfort is improved, she is breathing fairly comfortably, she is awake and alert, oriented 3, she is on 2 L of oxygen pulse ox is 95%, no fever or chills overnight, blood pressure has been stable, occasional cough, with no phlegm production. We consulted interventional radiology for possibility of right-sided pigtail chest tube placement however they felt that fluid pocket was very small and were unable to place a chest tube. We requested that a small sample of pleural fluid, and interventional radiology did attempt that under ultrasound guidance however the fluid pocket was too small even for diagnostic thoracentesis. Patient continues on Levaquin for empiric antibiotic coverage, she is on IV Solu-Medrol, and breathing treatments, Xarelto was placed on hold yesterday for possibility of right-sided thoracentesis or chest tube placement. Today's labs have been reviewed, BNP results are available only, CBC is pending, electrolytes are within normal limits, B1 is 23 creatinine 0.79. Legionella urine antigen was negative, and COVID-19 PCR was negative. Cultures have shown no growth. On 12/05/2000 patient seen in follow-up on selective care unit, she is sitting up in the recliner, yesterday interventional radiology was unable to obtain a sample of the pleural fluid from a loculated pleural effusion on the right for analysis. As a result of was restarted last night, her right-sided chest discomfort although improved but not completely resolved. She does have an occasional cough, she is not able to bring up any phlegm, she remains on broad- spectrum antibiotics. She remains on nebulized bronchodilators, blood cultures remain negative Objective - Vital Signs Vital signs: Vital Signs Temp 98.6 F 12/05/20 08:00 Pulse 60 12/05/20 12:49 Resp 18 12/05/20 08:00 BP 134/51 12/05/20 08:00 Pulse Ox 95 12/05/20 10:30 Intake & Output 12/04/20 12/05/20 12/05/20 18:59 06:59 18:59 Intake Total 1350 700 Output Total 1 2 1 Balance 1349 -2 699 Weight 79.5 kg Intake: Intake, IV Titration 150 Amount Sodium Chloride 0.9% 1, 150 000 ml @ 50 mls/hr IV . Q20H JOHNY Rx#:[id number] Oral 1200 700 Output: Stool 1 2 1 Other: Voiding Method Bedside Commode Bedside Commode Bedside Commode # Voids 4 1 1 # Bowel Movements 1 - Exam GENERAL EXAM: Alert, very pleasant, [id number] female patient on 2 L of oxygen with pulse ox 93% comfortable in no apparent distress. HEAD: Normocephalic/atraumatic. EYES: Normal reaction of pupils, equal size. Conjunctiva pink, sclera white. NOSE: Clear with pink turbinates. THROAT: No erythema or exudates. NECK: No masses, no JVD, no thyroid enlargement, no adenopathy. CHEST: No chest wall deformity. Symmetrical expansion. LUNGS: Equal air entry with diminished breath sounds and some crackles on the right CVS: Regular rate and rhythm, normal S1 and S2, no gallops, no murmurs, no rubs ABDOMEN: Soft, nontender. No hepatosplenomegaly, normal bowel sounds, no guarding or rigidity. EXTREMITIES: No clubbing, no edema, no cyanosis, 2+ pulses and upper and lower extremities. MUSCULOSKELETAL: Muscle strength and tone normal. SPINE: No scoliosis or deformity SKIN: No rashes CENTRAL NERVOUS SYSTEM: Alert and oriented -3. No focal deficits, tone is normal in all 4 extremities. PSYCHIATRIC: Alert and oriented -3. Appropriate affect. Intact judgment and insight. - Labs CBC & Chem 7: 12/02/20 07:31 12/04/20 07:26 Labs: Abnormal Lab Results - Last 24 Hours (Table) 12/04/20 12/04/20 12/05/20 Range/Units 16:49 19:48 06:13 POC Glucose (mg/dL) 114 H 202 H 187 H (75-99) mg/dL 12/05/20 Range/Units 11:32 POC Glucose (mg/dL) 160 H (75-99) mg/dL Microbiology - Last 24 Hours (Table) 12/02/20 08:07 Blood Culture - Preliminary Blood No Growth after 72 hours 12/02/20 08:00 Blood Culture - Preliminary Blood No Growth after 72 hours Assessment and Plan Plan: Assessment: #1. Possible right upper lobe pneumonia with loculated pleural effusion, rule out possibility of empyema versus malignancy. Interventional radiology was unable to place right-sided pigtail chest tube or obtain pleural fluid for analysis related to small size of the pleural effusion. CT chest was negative for pulmonary embolism #2. Right-sided pleuritic chest pain related to the above #3. Recurrent pleuritic chest discomfort, patient had negative workup for pulmonary embolism, patient is on Xarelto, compliant, patient did have negative cardiac workup as well #4. Paroxysmal atrial fibrillation #5. Hypertension #6. History of MTHFR gene mutation #7. Type 2 diabetes mellitus #8. History of right-sided breast cancer with previous right sided mastectemy #9. History of splenectomy #10. History of bowel resection #11. History of IVC filter placement Plan: We'll continue medical treatment at this time, continue antibiotics IV steroids and bronchodilators obtain follow-up AP lateral chest x-ray tomorrow morning Continue IV steroids continue oral anticoagulation Clinically she is stable, improving We'll continue to follow her clinical course and make further recommendations I performed a history & physical examination of the patient and discussed their management with my nurse practitioner, Charmaine Rodriguez. I reviewed the nurse practitioner's note and agree with the documented findings and plan of care. Lung sounds are positive for diminished breath sounds throughout the lung mcgovern. The findings and the impression was discussed with the patient. I attest to the documentation by the nurse practitioner. Time with Patient: Less than 30
[2020-12-05 16:43] LABS: Glucose,Whole Blood 192 mg/dL (75-99)
[2020-12-05] MEDS: ATORVASTATIN 10 MG TAB PO SCH (17:05)
[2020-12-05] MEDS: RIVAROXABAN 20 MG TAB PO SCH (17:06)
--- NOTE | 2020-12-05 17:43 | P.PN ---
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 At her baseline uses a walker. Recently in the hospital and of October: Was admitted with asthma exacerbation. PE was ruled out. Cardiac catheterization showed minimal plaque in the proximal LAD. Severely tortuous coronary arteries. Medical management was advocated Patient is short of breath at baseline. Patient now presents with increasing shortness of breath. Right-sided pleuritic chest pain around the lower side at the rib cage. Slight cough. No chills. Appetite is fair. No edema. No fever no chills. December 03: Underwent computed tomography scan of the chest. For possible thoracentesis. Pleuritic pain is better. Breathing is better. Oral intake fair. Family present. On IV Zosyn December 04: Patient went down to interventional radiology for thoracentesis. Because of small pleural effusion no fluid was obtained. Patient right pleuritic chest pain greatly improved. Eating well. Discussed with the patient's family at the bedside. Also the patient. Hopefully discharge tomorrow December 05: Sitting up in chair. Eating. Right-sided pleuritic pain much improved. Breathing better. Appears to be quite at her baseline compared to last admission. No sputum production. No fever. Dr. Benz spoke to the patient and family and wants to watch for another 48 hours. Advised to the patient that sitting up with legs hanging able to the best position for a compromised lungs. Incentive spirometer ordered again. Review of systems: Was done for constitutional, cardiovascular, GI, pulmonary. relevant finding as above Active Medications Acetaminophen (Acetaminophen Tab 500 Mg Tab) 500 mg PO Q6HR PRN PRN Reason: Fever and/ or Pain Last Admin: 12/05/20 12:14 Dose: 500 mg Documented by: Albuterol/Ipratropium (Ipratropium-Albuterol 3 Ml Neb) 3 ml INHALATION RT-Q4H PRN PRN Reason: shortness of breath Albuterol/Ipratropium (Ipratropium-Albuterol 3 Ml Neb) 3 ml INHALATION RT-Q4H [facility] Last Admin: 12/05/20 16:25 Dose: 3 ml Documented by: Atorvastatin Calcium (Atorvastatin 10 Mg Tab) 10 mg PO AC-SUPPER [facility] Last Admin: 12/05/20 17:05 Dose: 10 mg Documented by: Brimonidine Tartrate (Brimonidine Tartrate 0.2% Drops 5 Ml Btl) 1 drops BOTH EYES BID [facility] Last Admin: 12/05/20 08:47 Dose: 1 drops Documented by: Budesonide (Budesonide 1 Mg/2 Ml Nebu) 1 mg INHALATION RT-BID [facility] Last Admin: 12/05/20 08:52 Dose: 1 mg Documented by: Chlorthalidone (Chlorthalidone 25 Mg Tab) 25 mg PO DAILY@1200 [facility] Last Admin: 12/05/20 12:14 Dose: 25 mg Documented by: Clonazepam (Clonazepam 1 Mg Tab) 1 mg PO BID [facility] Last Admin: 12/05/20 08:48 Dose: 1 mg Documented by: Diltiazem HCl (Diltiazem Oral 30 Mg Tab) 30 mg PO TID [facility] Last Admin: 12/05/20 17:05 Dose: 30 mg Documented by: Dorzolamide HCl (Dorzolamide Hcl 2% Drops 10 Ml Btl) 1 drops BOTH EYES DAILY [facility] Last Admin: 12/05/20 08:47 Dose: 1 drops Documented by: Gabapentin (Gabapentin 300 Mg Cap) 300 mg PO TID [facility] Last Admin: 12/05/20 17:06 Dose: 300 mg Documented by: Insulin Aspart (Insulin Aspart (Novolog) 100 Unit/Ml Vial) 0 unit SQ ACHS [facility]; Protocol Last Admin: 12/05/20 17:06 Dose: 5 unit Documented by: Latanoprost (Latanoprost 0.005% Ophth Drops 2.5 Ml Btl) 1 drops BOTH EYES HS [facility] Last Admin: 12/04/20 20:54 Dose: 1 drops Documented by: Levofloxacin (Levofloxacin 750 Mg Tab) 750 mg PO Q48H [facility] Stop: 12/06/20 12:00 Losartan Potassium (Losartan 50 Mg Tab) 50 mg PO DAILY [facility] Last Admin: 12/05/20 08:48 Dose: 50 mg Documented by: Methylprednisolone Sodium Succinate (Methylprednisolone Sod Succi 40 Mg/Ml 1 Ml Vial) 40 mg IV Q12H [facility] Last Admin: 12/05/20 08:46 Dose: 40 mg Documented by: Miscellaneous Information (Pneumonia Protocol Utilized 1 Each [facility] [place]) 1 each PO ONCE PRN PRN Reason: Per Protocol Polyethylene Glycol (Polyethylene Glycol 3350 17 Gm Powd.Pack) 17 gm PO DAILY [facility] Last Admin: 12/05/20 08:48 Dose: 17 gm Documented by: Potassium Chloride (Potassium Chloride Er 20 Meq Tab.Er) 20 meq PO DAILY [facility] Last Admin: 12/05/20 08:48 Dose: 20 meq Documented by: Rivaroxaban (Rivaroxaban 20 Mg Tab) 20 mg PO W/SUPPER [facility]; Protocol Last Admin: 12/05/20 17:06 Dose: 20 mg Documented by: Sertraline HCl (Sertraline 50 Mg Tab) 150 mg PO DAILY [facility] Last Admin: 12/05/20 08:48 Dose: 150 mg Documented by: Timolol Maleate (Timolol 0.5% Ophth Drops 5 Ml Btl) 1 drops BOTH EYES [facility] Past medical history to include: Home oxygen, right diaphragm paralysis, moderate persistent asthma, moderate secondary pulmonary hypertension, M.D. HF are gene mutation on xarelto, chronic pulmonary embolism and DVT, chronic abdominal wall hernia, hypertension, paroxysmal atrial fibrillation, Social history: Lives alone in the seated apartment. Home oxygen 2 L. Walker. No history of smoking or alcohol Family history: CAD. On examination: VITAL SIGNS: 97.8, 54, 19, 121/70, 95% on 2 L GENERAL APPEARANCE: Sitting up in a chair, improved shortness of breath HEENT: Normal external appearance of nose and ear. Oral cavity normal EYES: Pupils equal. Conjunctiva normal. NECK: JVD not raised. Mass not palpable. RESPIRATORY: Respiratory effort increased. Lungs decreased breath sounds CARDIOVASCULAR: First and second sounds normal. No edema. ABDOMEN: Soft. Liver and spleen not palpable. No tenderness. No mass palpable. PSYCHIATRY: Alert and oriented x3. Mood and affect anxious INVESTIGATIONS, reviewed in the clinical context: December 03: Potassium 3.3 creatinine 0.79 pro-calcitonin 0.05 White count 26.3 hemoglobin 14.3 platelets 388 potassium 3.6 BUN 25 creatinine 0.93 EKG tracing personally reviewed by me-atrial fibrillation, rate 116, some ST segment changes Chest x-ray film personally reviewed by me-elevated right diaphragm. Decreased lung volumes. Possible right-sided infiltrate Further investigations from 2 weeks ago: Cardiac catheterization: Minimal plaque in the proximal LAD. Severely tortuous coronary arteries. 2-D echocardiogram: EF 55-60%. [id number] mitral regurgitation Chest CTA: No major pulmonary embolism Assessment and plan: -Probable right-sided pneumonia-much improved. On Levaquin. -Right-sided pleuritic chest pain from pneumonia, much improved -Acute exacerbation Moderate persistent asthma: Improving DuoNeb every 4. IV Solu-Medrol decreased -Moderate secondary pulmonary hypertension secondary to possibly asthma -MTHFR gene mutation Chronically on xarelto -Chronic pulmonary embolism and DVT patient On xarelto -Chronic hypoxic respiratory failure on home oxygen 2 L, from right diaphragm paralysis and asthma -Chronic abdominal wall hernia Follow clinically -Essential hypertension Cardizem 30 mg 3 times a day chlorthalidone 25 mg daily,, Cozaar 50 mg daily -Persistent atrial fibrillation, uncontrolled On xarelto. 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 Incentive spirometry -Anxiety depression Zoloft 150 mg a day -Chronic gait dysfunction Uses a walker at her baseline Patient doing much better. Quite back to baseline per last admission. Has a talk with the patient and family. Discharge when patient felt to be stable per pulmonary.
[2020-12-05 19:50] LABS: Glucose,Whole Blood 143 mg/dL (75-99)
[2020-12-05] MEDS: LATANOPROST 0.005% OPHTH DROPS 2.5 ML BTL BOTH EYES SCH (20:28)
[2020-12-05] MEDS: TIMOLOL 0.5% OPHTH DROPS 5 ML BTL BOTH EYES SCH (20:28)
[2020-12-06] MEDS: IPRATROPIUM-ALBUTEROL 3 ML NEB INHALATION SCH ×5 (03:36→19:52)
[2020-12-06 06:07] LABS: Glucose,Whole Blood 161 mg/dL (75-99)
[2020-12-06] MEDS: INSULIN ASPART (NovoLOG) 100 UNIT/ML VIAL SQ SCH ×4 (06:31→21:31)
[2020-12-06] MEDS: BUDESONIDE 1 MG/2 ML NEBU INHALATION SCH ×2 (07:26→19:52)
--- NOTE | 2020-12-06 07:57 | XR ---
EXAMINATION TYPE: XR chest 2V DATE OF EXAM: 12/06/2020 COMPARISON: 12/04/2020 INDICATION: Pneumonia TECHNIQUE: Frontal and lateral views of the chest are obtained. FINDINGS: The heart size is normal. The pulmonary vasculature is normal. There is a stable appearance of the right lung opacities compatible with effusion. IMPRESSION: 1. Stable lung opacities on the right. Correlate for atelectasis, pneumonia, and/or effusion
[2020-12-06] MEDS: GABAPENTIN 300 MG CAP PO SCH ×3 (08:40→21:32)
[2020-12-06] MEDS: SERTRALINE 50 MG TAB PO SCH (08:40)
[2020-12-06] MEDS: DILTIAZEM ORAL 30 MG TAB PO SCH ×3 (08:40→21:32)
[2020-12-06] MEDS: POTASSIUM CHLORIDE ER 20 MEQ TAB.ER PO SCH (08:41)
[2020-12-06] MEDS: polyethylene glycoL 3350 17 GM POWD.PACK PO SCH (08:41)
[2020-12-06] MEDS: LOSARTAN 50 MG TAB PO SCH (08:41)
[2020-12-06] MEDS: methylPREDNISolone SOD SUCCI 40 MG/ML 1 ML VIAL IV SCH ×2 (08:41→21:44)
[2020-12-06] MEDS: clonazePAM 1 MG TAB PO SCH ×2 (08:41→21:32)
[2020-12-06] MEDS: DORZOLAMIDE HCL 2% DROPS 10 ML BTL BOTH EYES SCH (08:43)
[2020-12-06] MEDS: BRIMONIDINE TARTRATE 0.2% DROPS 5 ML BTL BOTH EYES SCH ×2 (08:43→21:33)
[2020-12-06] MEDS ORDERED: LEVOFLOXACIN 750 MG TAB PO SCH (09:00)
[2020-12-06 11:54] LABS: Glucose,Whole Blood 166 mg/dL (75-99)
--- NOTE | 2020-12-06 12:38 | US ---
EXAMINATION TYPE: US chest DATE OF EXAM: 12/06/2020 COMPARISON: CT & Xray CLINICAL HISTORY: pleural effusion. TECHNIQUE: Targeted ultrasound of the posterior lower bilateral hemithoraces EXAM MEASUREMENTS: Right Pleural Effusion pocket size: 1.1 cm Right skin surface to fluid distance: 3.4 cm Left Pleural Effusion pocket size: not appreciated Pulmonologists are able to review the images in the patient?s EMR. IMPRESSIONS: Small right pleural effusion.
[2020-12-06] MEDS: CHLORTHALIDONE 25 MG TAB PO SCH (12:55)
--- NOTE | 2020-12-06 13:19 | P.PN ---
Subjective Progress Note Date: 12/06/20 Principal diagnosis: Right-sided pleuritic chest pain This is a 80-year-old female whom I was asked to see for acute onset of right- sided chest pain. Patient woke up around 2 AM with chest discomfort in the right side. Pain was described as sharp and pleuritic. Worse with coughing and sometimes with certain position changes. Patient also had some shortness of breath, she had previous history of DVT and pulmonary embolism, however she is maintained on Xarelto and she is very compliant with it on a regular basis. Patient also had a previous history of IVC filter placement. Looking back at her previous admission on 11/17, patient presented back then with mostly symptoms of back pain, and shortness of breath. Workup on the last admission included CT angiogram of the chest, and it was negative for pulmonary embolism. On this admission she had a chest x-ray questioning a new infiltrate in the right upper lobe and a small right-sided pleural effusion. Considering the findings patient was admitted and this consult was initiated. Patient is known to have history of DVT pulmonary embolism IVC filter placement COPD diabetes diaphragm paralysis generalized anxiety disorder depressed cancer and previous right-sided mastectomy. On this admission patient was noted to have a WBC of 26.3 hemoglobin 14.3 electrolytes are normal renal profile is normal, negative PCR for COVID-19 infection On 12/03/2020 patient seen in follow-up on selective care unit, she states the right-sided chest pain is still there but has improved since admission, her chest x-ray today showing persistent low lung volumes, and bibasilar along with right upper lung acute infiltrate and/or atelectasis, small to moderate-sized right pleural fluid collection which is increased from chest x-ray on 12/02/2020. She is currently on 2 L of oxygen pulse ox is 93-94%, afebrile overnight, she continues on Levaquin for antibiotic coverage, she is ALLERGIC to penicillins. She continues on oral anticoagulation with Xarelto and she is on nebulized bronchodilators. CTA chest was completed, showed no evidence of pulmonary embolism, it did show likely with pleural effusion and consolidation in the right chest. On 12/04/2020 patient is seen in follow-up on selective care unit, she states she is overall feeling better, right-sided chest discomfort is improved, she is breathing fairly comfortably, she is awake and alert, oriented 3, she is on 2 L of oxygen pulse ox is 95%, no fever or chills overnight, blood pressure has been stable, occasional cough, with no phlegm production. We consulted interventional radiology for possibility of right-sided pigtail chest tube placement however they felt that fluid pocket was very small and were unable to place a chest tube. We requested that a small sample of pleural fluid, and interventional radiology did attempt that under ultrasound guidance however the fluid pocket was too small even for diagnostic thoracentesis. Patient continues on Levaquin for empiric antibiotic coverage, she is on IV Solu-Medrol, and breathing treatments, Xarelto was placed on hold yesterday for possibility of right-sided thoracentesis or chest tube placement. Today's labs have been reviewed, BNP results are available only, CBC is pending, electrolytes are within normal limits, B1 is 23 creatinine 0.79. Legionella urine antigen was negative, and COVID-19 PCR was negative. Cultures have shown no growth. On 12/05/2000 patient seen in follow-up on selective care unit, she is sitting up in the recliner, yesterday interventional radiology was unable to obtain a sample of the pleural fluid from a loculated pleural effusion on the right for analysis. As a result of was restarted last night, her right-sided chest discomfort although improved but not completely resolved. She does have an occasional cough, she is not able to bring up any phlegm, she remains on broad- spectrum antibiotics. She remains on nebulized bronchodilators, blood cultures remain negative On 12/06/2020 patient seen in follow-up on selective care unit, today's chest x- ray shows lung opacities on the right, that possibly may have been creased from most previous chest x-ray. She remains on 2 L of oxygen, pulse ox is 95%, she has been afebrile, right-sided pleurisy has not resolved but somewhat improved since admission. Vital signs stable. Objective - Vital Signs Vital signs: Vital Signs Temp 97.6 F 12/06/20 11:13 Pulse 62 12/06/20 11:22 Resp 16 12/06/20 11:13 BP 126/56 12/06/20 11:13 Pulse Ox 95 12/06/20 11:13 Intake & Output 12/05/20 12/06/20 12/06/20 18:59 06:59 18:59 Intake Total 700 480 Output Total 2 2 Balance 698 478 Intake: Oral 700 480 Output: Stool 2 2 Other: Voiding Method Bedside Commode Bedside Commode # Voids 1 3 - Exam GENERAL EXAM: Alert, very pleasant, [id number] female patient on 2 L of oxygen with pulse ox 93% comfortable in no apparent distress. HEAD: Normocephalic/atraumatic. EYES: Normal reaction of pupils, equal size. Conjunctiva pink, sclera white. NOSE: Clear with pink turbinates. THROAT: No erythema or exudates. NECK: No masses, no JVD, no thyroid enlargement, no adenopathy. CHEST: No chest wall deformity. Symmetrical expansion. LUNGS: Equal air entry with diminished breath sounds and some crackles on the right CVS: Regular rate and rhythm, normal S1 and S2, no gallops, no murmurs, no rubs ABDOMEN: Soft, nontender. No hepatosplenomegaly, normal bowel sounds, no guarding or rigidity. EXTREMITIES: No clubbing, no edema, no cyanosis, 2+ pulses and upper and lower extremities. MUSCULOSKELETAL: Muscle strength and tone normal. SPINE: No scoliosis or deformity SKIN: No rashes CENTRAL NERVOUS SYSTEM: Alert and oriented -3. No focal deficits, tone is normal in all 4 extremities. PSYCHIATRIC: Alert and oriented -3. Appropriate affect. Intact judgment and insight. - Labs CBC & Chem 7: 12/02/20 07:31 12/04/20 07:26 Labs: Abnormal Lab Results - Last 24 Hours (Table) 12/05/20 12/05/20 12/06/20 Range/Units 16:42 19:49 06:07 POC Glucose (mg/dL) 192 H 143 H 161 H (75-99) mg/dL 12/06/20 Range/Units 11:46 POC Glucose (mg/dL) 166 H (75-99) mg/dL Microbiology - Last 24 Hours (Table) 12/02/20 08:07 Blood Culture - Preliminary Blood No Growth after 96 hours 12/02/20 08:00 Blood Culture - Preliminary Blood No Growth after 96 hours Assessment and Plan Plan: Assessment: #1. Possible right upper lobe pneumonia with loculated pleural effusion, rule out possibility of empyema versus malignancy. Interventional radiology was unable to place right-sided pigtail chest tube or obtain pleural fluid for analysis related to small size of the pleural effusion. CT chest was negative for pulmonary embolism #2. Right-sided pleuritic chest pain related to the above #3. Recurrent pleuritic chest discomfort, patient had negative workup for p ulmonary embolism, patient is on Xarelto, compliant, patient did have negative cardiac workup as well #4. Paroxysmal atrial fibrillation #5. Hypertension #6. History of MTHFR gene mutation #7. Type 2 diabetes mellitus #8. History of right-sided breast cancer with previous right sided mastectemy #9. History of splenectomy #10. History of bowel resection #11. History of IVC filter placement Plan: Today's chest x-ray was reviewed, and we feel that appearance of right-sided densities may have increased, Ultrasound of the chest has been ordered and reviewed however still not showing a sizable pleural effusion pocket for drainage We'll continue with current medical treatment Continue antibiotics and steroids We were hoping to be able to drain some of the pleural fluid from the right chest for diagnostic purposes We'll place the patient back on Xarelto We'll continue to follow Follow-up basic labs in the morning I performed a history & physical examination of the patient and discussed their management with my nurse practitioner, Charmaine Rodriguez. I reviewed the nurse pra ctitioner's note and agree with the documented findings and plan of care. Lung sounds are positive for diminished breath sounds throughout the lung mcgovern. The findings and the impression was discussed with the patient. I attest to the documentation by the nurse practitioner. Time with Patient: Less than 30
[2020-12-06] MEDS: ACETAMINOPHEN TAB 500 MG TAB PO PRN (14:56)
--- NOTE | 2020-12-06 15:34 | P.PN ---
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 At her baseline uses a walker. Recently in the hospital and of October: Was admitted with asthma exacerbation. PE was ruled out. Cardiac catheterization showed minimal plaque in the proximal LAD. Severely tortuous coronary arteries. Medical management was advocated Patient is short of breath at baseline. Patient now presents with increasing shortness of breath. Right-sided pleuritic chest pain around the lower side at the rib cage. Slight cough. No chills. Appetite is fair. No edema. No fever no chills. December 03: Underwent computed tomography scan of the chest. For possible thoracentesis. Pleuritic pain is better. Breathing is better. Oral intake fair. Family present. On IV Zosyn December 04: Patient went down to interventional radiology for thoracentesis. Because of small pleural effusion no fluid was obtained. Patient right pleuritic chest pain greatly improved. Eating well. Discussed with the patient's family at the bedside. Also the patient. Hopefully discharge tomorrow December 05: Sitting up in chair. Eating. Right-sided pleuritic pain much improved. Breathing better. Appears to be quite at her baseline compared to last admission. No sputum production. No fever. Dr. Benz spoke to the patient and family and wants to watch for another 48 hours. Advised to the patient that sitting up with legs hanging able to the best position for a compromised lungs. Incentive spirometer ordered again. December 06: Sitting up in a chair. Eating lunch. Minimal cough. Ultrasound of the chest has been ordered by pulmonary. Further plan depending upon results. No other new issues. No fever. Review of systems: Was done for constitutional, cardiovascular, GI, pulmonary. relevant finding as above Active Medications Acetaminophen (Acetaminophen Tab 500 Mg Tab) 500 mg PO Q6HR PRN PRN Reason: Fever and/ or Pain Last Admin: 12/06/20 14:56 Dose: 500 mg Documented by: Albuterol/Ipratropium (Ipratropium-Albuterol 3 Ml Neb) 3 ml INHALATION RT-Q4H PRN PRN Reason: shortness of breath Albuterol/Ipratropium (Ipratropium-Albuterol 3 Ml Neb) 3 ml INHALATION RT-Q4H [facility] Last Admin: 12/06/20 11:11 Dose: 3 ml Documented by: Atorvastatin Calcium (Atorvastatin 10 Mg Tab) 10 mg PO AC-SUPPER [facility] Last Admin: 12/05/20 17:05 Dose: 10 mg Documented by: Brimonidine Tartrate (Brimonidine Tartrate 0.2% Drops 5 Ml Btl) 1 drops BOTH EYES BID [facility] Last Admin: 12/06/20 08:43 Dose: 1 drops Documented by: Budesonide (Budesonide 1 Mg/2 Ml Nebu) 1 mg INHALATION RT-BID [facility] Last Admin: 12/06/20 07:26 Dose: 1 mg Documented by: Chlorthalidone (Chlorthalidone 25 Mg Tab) 25 mg PO DAILY@1200 [facility] Last Admin: 12/06/20 12:55 Dose: 25 mg Documented by: Clonazepam (Clonazepam 1 Mg Tab) 1 mg PO BID [facility] Last Admin: 12/06/20 08:41 Dose: 1 mg Documented by: Diltiazem HCl (Diltiazem Oral 30 Mg Tab) 30 mg PO TID [facility] Last Admin: 12/06/20 14:56 Dose: 30 mg Documented by: Dorzolamide HCl (Dorzolamide Hcl 2% Drops 10 Ml Btl) 1 drops BOTH EYES DAILY [facility] Last Admin: 12/06/20 08:43 Dose: 1 drops Documented by: Gabapentin (Gabapentin 300 Mg Cap) 300 mg PO TID [facility] Last Admin: 12/06/20 14:57 Dose: 300 mg Documented by: Insulin Aspart (Insulin Aspart (Novolog) 100 Unit/Ml Vial) 0 unit SQ ACHS [facility]; Protocol Last Admin: 12/06/20 12:55 Dose: 3 unit Documented by: Latanoprost (Latanoprost 0.005% Ophth Drops 2.5 Ml Btl) 1 drops BOTH EYES HS [facility] Last Admin: 12/05/20 20:28 Dose: 1 drops Documented by: Levofloxacin (Levofloxacin 750 Mg Tab) 750 mg PO Q48H [facility] Losartan Potassium (Losartan 50 Mg Tab) 50 mg PO DAILY [facility] Last Admin: 12/06/20 08:41 Dose: 50 mg Documented by: Methylprednisolone Sodium Succinate (Methylprednisolone Sod Succi 40 Mg/Ml 1 Ml Vial) 40 mg IV Q12H [facility] Last Admin: 12/06/20 08:41 Dose: 40 mg Documented by: Miscellaneous Information (Pneumonia Protocol Utilized [address] [facility]) 1 each PO ONCE PRN PRN Reason: Per Protocol Polyethylene Glycol (Polyethylene Glycol 3350 17 Gm Powd.Pack) 17 gm PO DAILY [facility] Last Admin: 12/06/20 08:41 Dose: 17 gm Documented by: Potassium Chloride (Potassium Chloride Er 20 Meq Tab.Er) 20 meq PO DAILY [facility] Last Admin: 12/06/20 08:41 Dose: 20 meq Documented by: Rivaroxaban (Rivaroxaban 20 Mg Tab) 20 mg PO W/SUPPER [facility]; Protocol Sertraline HCl (Sertraline 50 Mg Tab) 150 mg PO DAILY [facility] Last Admin: 12/06/20 08:40 Dose: 150 mg Documented by: Timolol Maleate (Timolol 0.5% Ophth Drops 5 Ml Btl) 1 drops BOTH EYES HS [facility] Last Admin: 12/05/20 20:28 Dose: 1 drops Documented by: Past medical history to include: Home oxygen, right diaphragm paralysis, moderate persistent asthma, moderate secondary pulmonary hypertension, M.D. HF are gene mutation on xarelto, chronic pulmonary embolism and DVT, chronic abdominal wall hernia, hypertension, paroxysmal atrial fibrillation, Social history: Lives alone in the seated apartment. Home oxygen 2 L. Walker. No history of smoking or alcohol Family history: CAD. On examination: VITAL SIGNS: 98.2, 57, 16, 138/76, 94% room air GENERAL APPEARANCE: Sitting up in a chair, looking better HEENT: Normal external appearance of nose and ear. Oral cavity normal EYES: Pupils equal. Conjunctiva normal. NECK: JVD not raised. Mass not palpable. RESPIRATORY: Respiratory effort increased. Lungs decreased breath sounds CARDIOVASCULAR: First and second sounds normal. No edema. ABDOMEN: Soft. Liver and spleen not palpable. No tenderness. No mass palpable. PSYCHIATRY: Alert and oriented x3. Mood and affect anxious INVESTIGATIONS, reviewed in the clinical context: Chest ultrasound [12/06]: Minimal fluid December 03: Potassium 3.3 creatinine 0.79 pro-calcitonin 0.05 White count 26.3 hemoglobin 14.3 platelets 388 potassium 3.6 BUN 25 creatinine 0.93 EKG tracing personally reviewed by me-atrial fibrillation, rate 116, some ST segment changes Chest x-ray film personally reviewed by me-elevated right diaphragm. Decreased lung volumes. Possible right-sided infiltrate Further investigations from 2 weeks ago: Cardiac catheterization: Minimal plaque in the proximal LAD. Severely tortuous coronary arteries. 2-D echocardiogram: EF 55-60%. [id number] mitral regurgitation Chest CTA: No major pulmonary embolism Assessment and plan: -Probable right-sided pneumonia-much improved. On Levaquin. -Right-sided pleuritic chest pain from pneumonia, much improved -Acute exacerbation Moderate persistent asthma: Improving DuoNeb every 4. IV Solu-Medrol decreased -Moderate secondary pulmonary hypertension secondary to possibly asthma -MTHFR gene mutation Chronically on xarelto -Chronic pulmonary embolism and DVT patient On xarelto -Chronic hypoxic respiratory failure on home oxygen 2 L, from right diaphragm paralysis and asthma -Chronic abdominal wall hernia Follow clinically -Essential hypertension Cardizem 30 mg 3 times a day chlorthalidone 25 mg daily,, Cozaar 50 mg daily -Persistent atrial fibrillation, uncontrolled On xarelto. 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 Incentive spirometry -Anxiety depression Zoloft 150 mg a day -Chronic gait dysfunction Uses a walker at her baseline Repeat ultrasound showing minimal fluid. Continue current medications. Patient should be able to be discharged home and felt okay by pulmonary. We'll switch to oral prednisone in the morning.
[2020-12-06 17:01] LABS: Glucose,Whole Blood 123 mg/dL (75-99)
[2020-12-06] MEDS: ATORVASTATIN 10 MG TAB PO SCH (18:02)
[2020-12-06] MEDS: RIVAROXABAN 20 MG TAB PO SCH (18:02)
[2020-12-06 20:14] LABS: Glucose,Whole Blood 163 mg/dL (75-99)
[2020-12-06] MEDS: LATANOPROST 0.005% OPHTH DROPS 2.5 ML BTL BOTH EYES SCH (21:34)
[2020-12-06] MEDS: TIMOLOL 0.5% OPHTH DROPS 5 ML BTL BOTH EYES SCH (21:35)
[2020-12-07] MEDS: IPRATROPIUM-ALBUTEROL 3 ML NEB INHALATION SCH ×6 (00:16→23:52)
[2020-12-07 06:20] LABS: Glucose,Whole Blood 180 mg/dL (75-99)
[2020-12-07] MEDS: INSULIN ASPART (NovoLOG) 100 UNIT/ML VIAL SQ SCH ×4 (06:31→20:24)
[2020-12-07 06:38] LABS: Basophils % (A) 0 %; Eosinophils % (A) 0 %; HCT 38.6 % (34.0-46.0); HGB 12.3 gm/dL (11.4-16.0); Hypochromasia Slight; Lymphocytes # (A) 0.6 k/uL (1.0-4.8); Lymphocytes % (A) 4 %; MCH 30.9 pg (25.0-35.0); MCHC 31.8 g/dL (31.0-37.0); MCV 97.2 fL (80.0-100.0); Mean Platelet Volume 8.8; Monocytes # (A) 0.5 k/uL (0-1.0); Monocytes % (A) 3 %; Neutrophils # (A) 13.8 k/uL (1.3-7.7); Neutrophils % (A) 93 %; Platelet Count 306 k/uL (150-450); RBC 3.98 m/uL (3.80-5.40); RDW 12.7 % (11.5-15.5); WBC 14.9 k/uL (3.8-10.6)
[2020-12-07] MEDS: BUDESONIDE 1 MG/2 ML NEBU INHALATION SCH ×2 (07:56→20:39)
[2020-12-07] MEDS: DILTIAZEM ORAL 30 MG TAB PO SCH ×3 (08:09→22:00)
[2020-12-07] MEDS: LOSARTAN 50 MG TAB PO SCH (08:09)
[2020-12-07] MEDS: clonazePAM 1 MG TAB PO SCH ×2 (08:09→20:29)
[2020-12-07] MEDS: predniSONE 20 MG TAB PO SCH (08:09)
[2020-12-07] MEDS: GABAPENTIN 300 MG CAP PO SCH ×3 (08:09→22:00)
[2020-12-07] MEDS: BRIMONIDINE TARTRATE 0.2% DROPS 5 ML BTL BOTH EYES SCH ×2 (08:10→20:30)
[2020-12-07] MEDS: DORZOLAMIDE HCL 2% DROPS 10 ML BTL BOTH EYES SCH (08:10)
[2020-12-07] MEDS: SERTRALINE 50 MG TAB PO SCH (08:10)
[2020-12-07] MEDS: polyethylene glycoL 3350 17 GM POWD.PACK PO SCH (08:10)
[2020-12-07] MEDS: POTASSIUM CHLORIDE ER 20 MEQ TAB.ER PO SCH (08:10)
[2020-12-07 08:19] LABS: Albumin 2.5 g/dL (3.5-5.0); Calcium 9.9 mg/dL (8.4-10.2); Potassium 4.1 mmol/L (3.5-5.1); Total Bilirubin 0.5 mg/dL (0.2-1.3); Total Protein 5.1 g/dL (6.3-8.2)
[2020-12-07] MEDS ORDERED: FUROSEMIDE 10 MG/ML 4 ML VIAL IV STA (10:11)
[2020-12-07] MEDS: CHLORTHALIDONE 25 MG TAB PO SCH (10:55)
[2020-12-07 11:50] LABS: Glucose,Whole Blood 163 mg/dL (75-99)
--- NOTE | 2020-12-07 13:43 | P.PN ---
Subjective Progress Note Date: 12/07/20 Principal diagnosis: Right-sided pleuritic chest pain This is a 80-year-old female whom I was asked to see for acute onset of right- sided chest pain. Patient woke up around 2 AM with chest discomfort in the right side. Pain was described as sharp and pleuritic. Worse with coughing and sometimes with certain position changes. Patient also had some shortness of breath, she had previous history of DVT and pulmonary embolism, however she is maintained on Xarelto and she is very compliant with it on a regular basis. Patient also had a previous history of IVC filter placement. Looking back at her previous admission on 11/17, patient presented back then with mostly symptoms of back pain, and shortness of breath. Workup on the last admission included CT angiogram of the chest, and it was negative for pulmonary embolism. On this admission she had a chest x-ray questioning a new infiltrate in the right upper lobe and a small right-sided pleural effusion. Considering the findings patient was admitted and this consult was initiated. Patient is known to have history of DVT pulmonary embolism IVC filter placement COPD diabetes diaphragm paralysis generalized anxiety disorder depressed cancer and previous right-sided mastectomy. On this admission patient was noted to have a WBC of 26.3 hemoglobin 14.3 electrolytes are normal renal profile is normal, negative PCR for COVID-19 infection On 12/03/2020 patient seen in follow-up on selective care unit, she states the right-sided chest pain is still there but has improved since admission, her chest x-ray today showing persistent low lung volumes, and bibasilar along with right upper lung acute infiltrate and/or atelectasis, small to moderate-sized right pleural fluid collection which is increased from chest x-ray on 12/02/2020. She is currently on 2 L of oxygen pulse ox is 93-94%, afebrile overnight, she continues on Levaquin for antibiotic coverage, she is ALLERGIC to penicillins. She continues on oral anticoagulation with Xarelto and she is on nebulized bronchodilators. CTA chest was completed, showed no evidence of pulmonary embolism, it did show likely with pleural effusion and consolidation in the right chest. On 12/04/2020 patient is seen in follow-up on selective care unit, she states she is overall feeling better, right-sided chest discomfort is improved, she is breathing fairly comfortably, she is awake and alert, oriented 3, she is on 2 L of oxygen pulse ox is 95%, no fever or chills overnight, blood pressure has been stable, occasional cough, with no phlegm production. We consulted interventional radiology for possibility of right-sided pigtail chest tube placement however they felt that fluid pocket was very small and were unable to place a chest tube. We requested that a small sample of pleural fluid, and interventional radiology did attempt that under ultrasound guidance however the fluid pocket was too small even for diagnostic thoracentesis. Patient continues on Levaquin for empiric antibiotic coverage, she is on IV Solu-Medrol, and breathing treatments, Xarelto was placed on hold yesterday for possibility of right-sided thoracentesis or chest tube placement. Today's labs have been reviewed, BNP results are available only, CBC is pending, electrolytes are within normal limits, B1 is 23 creatinine 0.79. Legionella urine antigen was negative, and COVID-19 PCR was negative. Cultures have shown no growth. On 12/05/2000 patient seen in follow-up on selective care unit, she is sitting up in the recliner, yesterday interventional radiology was unable to obtain a sample of the pleural fluid from a loculated pleural effusion on the right for analysis. As a result of was restarted last night, her right-sided chest discomfort although improved but not completely resolved. She does have an occasional cough, she is not able to bring up any phlegm, she remains on broad- spectrum antibiotics. She remains on nebulized bronchodilators, blood cultures remain negative On 12/06/2020 patient seen in follow-up on [facility] care unit, today's chest x- ray shows lung opacities on the right, that possibly may have been creased from most previous chest x-ray. She remains on 2 L of oxygen, pulse ox is 95%, she has been afebrile, right-sided pleurisy has not resolved but somewhat improved since admission. Vital signs stable. On 12/07/2020 patient seen in follow-up on selective care unit. She is resting in bed, she is feeling comfortable, she is currently intubated of oxygen pulse ox is 94%, she states she still hurts in the right lateral chest with deep breathing and coughing, but overall she is feeling better, no acute events overnight, no fever or chills. Yesterday it repeat ultrasound and chest did not show a sizable pleural effusion pocket for drainage. We restarted her chronic anticoagulation with Xarelto. At this time she remains on prednisone 40 mg daily, and she remains on antibiotics in the form of Levaquin 750 mg every 48 hours, we will give her a dose of IV Lasix. Objective - Vital Signs Vital signs: Vital Signs Temp 98.5 F 12/07/20 07:56 Pulse 56 L 12/07/20 11:29 Resp 16 12/07/20 11:08 BP 139/65 12/07/20 11:08 Pulse Ox 95 12/07/20 11:08 Intake & Output 12/06/20 12/07/20 12/07/20 18:59 06:59 18:59 Intake Total 240 240 Output Total 881 Balance 240 -881 240 Weight 78.7 kg Intake: Oral 240 240 Output: Urine 880 Stool 1 Other: Voiding Method Bedside Commode # Voids 3 3 # Bowel Movements 1 1 - Exam GENERAL EXAM: Alert, very pleasant, [id number] female patient on 2 L of oxygen with pulse ox 93% comfortable in no apparent distress. HEAD: Normocephalic/atraumatic. EYES: Normal reaction of pupils, equal size. Conjunctiva pink, sclera white. NOSE: Clear with pink turbinates. THROAT: No erythema or exudates. NECK: No masses, no JVD, no thyroid enlargement, no adenopathy. CHEST: No chest wall deformity. Symmetrical expansion. LUNGS: Equal air entry with diminished breath sounds and some crackles on the right CVS: Regular rate and rhythm, normal S1 and S2, no gallops, no murmurs, no rubs ABDOMEN: Soft, nontender. No hepatosplenomegaly, normal bowel sounds, no guarding or rigidity. EXTREMITIES: No clubbing, no edema, no cyanosis, 2+ pulses and upper and lower extremities. MUSCULOSKELETAL: Muscle strength and tone normal. SPINE: No scoliosis or deformity SKIN: No rashes CENTRAL NERVOUS SYSTEM: Alert and oriented -3. No focal deficits, tone is normal in all 4 extremities. PSYCHIATRIC: Alert and oriented -3. Appropriate affect. Intact judgment and insight. - Labs CBC & Chem 7: 12/07/20 06:06 12/07/20 06:06 Labs: Abnormal Lab Results - Last 24 Hours (Table) 12/06/20 12/06/20 12/07/20 Range/Units 16:50 20:13 06:06 WBC (3.8-10.6) k/uL Neutrophils # (1.3-7.7) k/uL Lymphocytes # (1.0-4.8) k/uL Carbon Dioxide 32 H (22-30) mmol/L BUN 28 H (7-17) mg/dL Glucose 203 H (74-99) mg/dL POC Glucose (mg/dL) 123 H 163 H (75-99) mg/dL AST 13 L (14-36) U/L Total Protein 5.1 L (6.3-8.2) g/dL Albumin 2.5 L (3.5-5.0) g/dL 12/07/20 12/07/20 12/07/20 Range/Units 06:06 06:19 11:47 WBC 14.9 H (3.8-10.6) k/uL Neutrophils # 13.8 H (1.3-7.7) k/uL Lymphocytes # 0.6 L (1.0-4.8) k/uL Carbon Dioxide (22-30) mmol/L BUN (7-17) mg/dL Glucose (74-99) mg/dL POC Glucose (mg/dL) 180 H 163 H (75-99) mg/dL AST (14-36) U/L Total Protein (6.3-8.2) g/dL Albumin (3.5-5.0) g/dL Microbiology - Last 24 Hours (Table) 12/02/20 08:07 Blood Culture - Preliminary Blood No Growth after 120 hours 12/02/20 08:00 Blood Culture - Preliminary Blood No Growth after 120 hours Assessment and Plan Plan: Assessment: #1. Possible right upper lobe pneumonia with loculated pleural effusion, rule out possibility of empyema versus malignancy. Interventional radiology was unable to place right-sided pigtail chest tube or obtain pleural fluid for analysis related to small size of the pleural effusion. CT chest was negative for pulmonary embolism #2. Right-sided pleuritic chest pain related to the above #3. Recurrent pleuritic chest discomfort, patient had negative workup for pulmonary embolism, patient is on Xarelto, compliant, patient did have negative cardiac workup as well #4. Paroxysmal atrial fibrillation #5. Hypertension #6. History of MTHFR gene mutation #7. Type 2 diabetes mellitus #8. History of right-sided breast cancer with previous right sided mastectemy #9. History of splenectomy #10. History of bowel resection #11. History of IVC filter placement Plan: Continue antibiotics Continue oral prednisone We'll give the patient a dose of IV Lasix Vital signs have been stable, patient has been afebrile Yesterday's chest ultrasound failed to reveal a sizable pleural effusion pocket for drainage We'll continue medical treating the patient increase activity as tolerated, Follow-up chest x-ray in the morning I performed a history & physical examination of the patient and discussed their management with my nurse practitioner, Charmaine Rodriguez. I reviewed the nurse practitioner's note and agree with the documented findings and plan of care. Lung sounds are positive for diminished breath sounds throughout the lung mcg[place]. The findings and the impression was discussed with the patient. I attest to the documentation by the nurse practitioner. Time with Patient: Less than 30
[2020-12-07 16:39] LABS: Glucose,Whole Blood 177 mg/dL (75-99)
[2020-12-07] MEDS: RIVAROXABAN 20 MG TAB PO SCH (16:51)
[2020-12-07] MEDS: ATORVASTATIN 10 MG TAB PO SCH (16:51)
--- NOTE | 2020-12-07 17:11 | P.PN ---
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 At her baseline uses a walker. Recently in the hospital and of October: Was admitted with asthma exacerbation. PE was ruled out. Cardiac catheterization showed minimal plaque in the proximal LAD. Severely tortuous coronary arteries. Medical management was advocated Patient is short of breath at baseline. Patient now presents with increasing shortness of breath. Right-sided pleuritic chest pain around the lower side at the rib cage. Slight cough. No chills. Appetite is fair. No edema. No fever no chills. December 03: Underwent computed tomography scan of the chest. For possible thoracentesis. Pleuritic pain is better. Breathing is better. Oral intake fair. Family present. On IV Zosyn December 04: Patient went down to interventional radiology for thoracentesis. Because of small pleural effusion no fluid was obtained. Patient right pleuritic chest pain greatly improved. Eating well. Discussed with the patient's family at the bedside. Also the patient. Hopefully discharge tomorrow December 05: Sitting up in chair. Eating. Right-sided pleuritic pain much improved. Breathing better. Appears to be quite at her baseline compared to last admission. No sputum production. No fever. Dr. Benz spoke to the patient and family and wants to watch for another 48 hours. Advised to the patient that sitting up with legs hanging able to the best position for a compromised lungs. Incentive spirometer ordered again. December 06: Sitting up in a chair. Eating lunch. Minimal cough. Ultrasound of the chest has been ordered by pulmonary. Further plan depending upon results. No other new issues. No fever. December 07: Sitting up in a chair. Breathing better. Minimal cough. No fever no chills. Repeat chest ultrasound showed minimal pleural effusion. Review of systems: Was done for constitutional, cardiovascular, GI, pulmonary. relevant finding as above Active Medications Acetaminophen (Acetaminophen Tab 500 Mg Tab) 500 mg PO Q6HR PRN PRN Reason: Fever and/ or Pain Last Admin: 12/06/20 14:56 Dose: 500 mg Documented by: Albuterol/Ipratropium (Ipratropium-Albuterol 3 Ml Neb) 3 ml INHALATION RT-Q4H PRN PRN Reason: shortness of breath Albuterol/Ipratropium (Ipratropium-Albuterol 3 Ml Neb) 3 ml INHALATION RT-Q4H [facility] Last Admin: 12/07/20 16:22 Dose: 3 ml Documented by: Atorvastatin Calcium (Atorvastatin 10 Mg Tab) 10 mg PO AC-SUPPER [facility] Last Admin: 12/07/20 16:51 Dose: 10 mg Documented by: Brimonidine Tartrate (Brimonidine Tartrate 0.2% Drops 5 Ml Btl) 1 drops BOTH EYES BID [facility] Last Admin: 12/07/20 08:10 Dose: 1 drops Documented by: Budesonide (Budesonide 1 Mg/2 Ml Nebu) 1 mg INHALATION RT-BID [facility] Last Admin: 12/07/20 07:56 Dose: 1 mg Documented by: Chlorthalidone (Chlorthalidone 25 Mg Tab) 25 mg PO DAILY@1200 [facility] Last Admin: 12/07/20 10:55 Dose: 25 mg Documented by: Clonazepam (Clonazepam 1 Mg Tab) 1 mg PO BID [facility] Last Admin: 12/07/20 08:09 Dose: 1 mg Documented by: Diltiazem HCl (Diltiazem Oral 30 Mg Tab) 30 mg PO TID [facility] Last Admin: 12/07/20 15:24 Dose: 30 mg Documented by: Dorzolamide HCl (Dorzolamide Hcl 2% Drops 10 Ml Btl) 1 drops BOTH EYES DAILY [facility] Last Admin: 12/07/20 08:10 Dose: 1 drops Documented by: Gabapentin (Gabapentin 300 Mg Cap) 300 mg PO TID [facility] Last Admin: 12/07/20 15:24 Dose: 300 mg Documented by: Insulin Aspart (Insulin Aspart (Novolog) 100 Unit/Ml Vial) 0 unit SQ ACHS [facility]; Protocol Last Admin: 12/07/20 16:51 Dose: 4 unit Documented by: Latanoprost (Latanoprost 0.005% Ophth Drops 2.5 Ml Btl) 1 drops BOTH EYES HS [facility] Last Admin: 12/06/20 21:34 Dose: 1 drops Documented by: Levofloxacin (Levofloxacin 750 Mg Tab) 750 mg PO Q48H [facility] Losartan Potassium (Losartan 50 Mg Tab) 50 mg PO DAILY [facility] Last Admin: 12/07/20 08:09 Dose: 50 mg Documented by: Miscellaneous Information (Pneumonia Protocol [facility] 1 each PO ONCE PRN PRN Reason: Per Protocol Polyethylene Glycol (Polyethylene Glycol 3350 17 Gm Powd.Pack) 17 gm PO DAILY [facility] Last Admin: 12/07/20 08:10 Dose: 17 gm Documented by: Potassium Chloride (Potassium Chloride Er 20 Meq Tab.Er) 20 meq PO DAILY [facility] Last Admin: 12/07/20 08:10 Dose: 20 meq Documented by: Prednisone (Prednisone 20 Mg Tab) 40 mg PO DAILY [facility] Last Admin: 12/07/20 08:09 Dose: 40 mg Documented by: Rivaroxaban (Rivaroxaban 20 Mg Tab) 20 mg PO W/SUPPER [facility]; Protocol Last Admin: 12/07/20 16:51 Dose: 20 mg Documented by: Sertraline HCl (Sertraline 50 Mg Tab) 150 mg PO DAILY [facility] Last Admin: 12/07/20 08:10 Dose: 150 mg Documented by: Timolol Maleate (Timolol 0.5% Ophth Drops 5 Ml Btl) 1 drops BOTH EYES HS [facility] Last Admin: 12/06/20 21:35 Dose: 1 drops Documented by: Past medical history to include: Home oxygen, right diaphragm paralysis, moderate persistent asthma, moderate secondary pulmonary hypertension, M.D. HF are gene mutation on xarelto, chronic pulmonary embolism and DVT, chronic abdominal wall hernia, hypertension, paroxysmal atrial fibrillation, Social history: Lives alone in the seated apartment. Home oxygen 2 L. Walker. No history of smoking or alcohol Family history: CAD. On examination: VITAL SIGNS: 97.6, 57, 16, 160/70, 95% on 2 L GENERAL APPEARANCE: Sitting up in a chair, bed to HEENT: Normal external appearance of nose and ear. Oral cavity normal EYES: Pupils equal. Conjunctiva normal. NECK: JVD not raised. Mass not palpable. RESPIRATORY: Respiratory effort increased. Lungs decreased breath sounds CARDIOVASCULAR: First and second sounds normal. No edema. ABDOMEN: Soft. Liver and spleen not palpable. No tenderness. No mass palpable. PSYCHIATRY: Alert and oriented x3. Mood and affect anxious INVESTIGATIONS, reviewed in the clinical context: December 07: WBC 14.9 hemoglobin 12.3 potassium 4.1 crit and 0.87 Chest ultrasound [12/06]: Minimal fluid December 03: Potassium 3.3 creatinine 0.79 pro-calcitonin 0.05 White count 26.3 hemoglobin 14.3 platelets 388 potassium 3.6 BUN 25 creatinine 0.93 EKG tracing personally reviewed by me-atrial fibrillation, rate 116, some ST segment changes Chest x-ray film personally reviewed by me-elevated right diaphragm. Decreased lung volumes. Possible right-sided infiltrate Further investigations from 2 weeks ago: Cardiac catheterization: Minimal plaque in the proximal LAD. Severely tortuous coronary arteries. 2-D echocardiogram: EF 55-60%. [id number] mitral regurgitation Chest CTA: No major pulmonary embolism Assessment and plan: -Probable right-sided pneumonia-much improved. On Levaquin. -Right-sided pleuritic chest pain from pneumonia, much improved -Acute exacerbation Moderate persistent asthma: Improving DuoNeb every 4. IV Solu-Medrol -Moderate secondary pulmonary hypertension secondary to possibly asthma -MTHFR gene mutation Chronically on xarelto -Chronic pulmonary embolism and DVT patient On xarelto -Chronic hypoxic respiratory failure on home oxygen 2 L, from right diaphragm paralysis and asthma -Chronic abdominal wall hernia Follow clinically -Essential hypertension Cardizem 30 mg 3 times a day chlorthalidone 25 mg daily,, Cozaar 50 mg daily -Persistent atrial fibrillation, uncontrolled On xarelto. 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 Incentive spirometry -Anxiety depression Zoloft 150 mg a day -Chronic gait dysfunction Uses a walker at her baseline Continue current medication treatment plan. Discussed with patient. DC when okay with pulmonary.
[2020-12-07 20:05] LABS: Glucose,Whole Blood 127 mg/dL (75-99)
[2020-12-07] MEDS: TIMOLOL 0.5% OPHTH DROPS 5 ML BTL BOTH EYES SCH (20:31)
[2020-12-07] MEDS: LATANOPROST 0.005% OPHTH DROPS 2.5 ML BTL BOTH EYES SCH (20:31)
[2020-12-08] MEDS: IPRATROPIUM-ALBUTEROL 3 ML NEB INHALATION SCH ×5 (04:15→20:12)
[2020-12-08 06:15] LABS: Glucose,Whole Blood 122 mg/dL (75-99)
[2020-12-08] MEDS: INSULIN ASPART (NovoLOG) 100 UNIT/ML VIAL SQ SCH ×4 (06:16→20:45)
--- NOTE | 2020-12-08 07:14 | XR ---
EXAMINATION TYPE: XR chest 2V DATE OF EXAM: 12/08/2020 COMPARISON: 12/06/2020 TECHNIQUE: PA and lateral views submitted. HISTORY: Shortness of breath FINDINGS: Stable bilateral consolidation and small Limited inspiration. Heart size stable. No pneumothorax. Art hropathy shoulders. Small exostosis involving the proximal right humerus. Hypertrophic change of the spine. Atherosclerotic change aorta. IMPRESSION: 1. Small bilateral pleural effusion and basilar infiltrate.
[2020-12-08] MEDS: BUDESONIDE 1 MG/2 ML NEBU INHALATION SCH ×2 (08:25→20:12)
[2020-12-08] MEDS: DORZOLAMIDE HCL 2% DROPS 10 ML BTL BOTH EYES SCH (08:35)
[2020-12-08] MEDS: BRIMONIDINE TARTRATE 0.2% DROPS 5 ML BTL BOTH EYES SCH ×2 (08:35→20:45)
[2020-12-08] MEDS: polyethylene glycoL 3350 17 GM POWD.PACK PO SCH (08:36)
[2020-12-08] MEDS: SERTRALINE 50 MG TAB PO SCH (08:36)
[2020-12-08] MEDS: DILTIAZEM ORAL 30 MG TAB PO SCH ×3 (08:37→20:45)
[2020-12-08] MEDS: clonazePAM 1 MG TAB PO SCH ×2 (08:37→20:45)
[2020-12-08] MEDS: LOSARTAN 50 MG TAB PO SCH (08:37)
[2020-12-08] MEDS: predniSONE 20 MG TAB PO SCH (08:37)
[2020-12-08] MEDS: LEVOFLOXACIN 750 MG TAB PO SCH (08:37)
[2020-12-08] MEDS: GABAPENTIN 300 MG CAP PO SCH ×3 (08:37→20:45)
[2020-12-08] MEDS: POTASSIUM CHLORIDE ER 20 MEQ TAB.ER PO SCH (08:37)
[2020-12-08 11:24] LABS: Glucose,Whole Blood 165 mg/dL (75-99)
[2020-12-08] MEDS: FUROSEMIDE 20 MG TAB PO SCH (11:48)
[2020-12-08] MEDS: CHLORTHALIDONE 25 MG TAB PO SCH (11:48)
[2020-12-08 13:46] VITALS: BMI 32.9
--- NOTE | 2020-12-08 14:35 | P.PN ---
Subjective Progress Note Date: 12/08/20 Principal diagnosis: Right-sided pleuritic chest pain with right pleural effusion possibly parapneumonic. This is a 80-year-old female whom I was asked to see for acute onset of right- sided chest pain. Patient woke up around 2 AM with chest discomfort in the right side. Pain was described as sharp and pleuritic. Worse with coughing and sometimes with certain position changes. Patient also had some shortness of breath, she had previous history of DVT and pulmonary embolism, however she is maintained on Xarelto and she is very compliant with it on a regular basis. Patient also had a previous history of IVC filter placement. Looking back at her previous admission on 11/17, patient presented back then with mostly symptoms of back pain, and shortness of breath. Workup on the last admission included CT angiogram of the chest, and it was negative for pulmonary embolism. On this admission she had a chest x-ray questioning a new infiltrate in the right upper lobe and a small right-sided pleural effusion. Considering the findings patient was admitted and this consult was initiated. Patient is known to have history of DVT pulmonary embolism IVC filter placement COPD diabetes diaphragm paralysis generalized anxiety disorder depressed cancer and previous right-sided mastectomy. On this admission patient was noted to have a WBC of 26.3 hemoglobin 14.3 electrolytes are normal renal profile is normal, negative PCR for COVID-19 infection On 12/03/2020 patient seen in follow-up on selective care unit, she states the right-sided chest pain is still there but has improved since admission, her chest x-ray today showing persistent low lung volumes, and bibasilar along with right upper lung acute infiltrate and/or atelectasis, small to moderate-sized right pleural fluid collection which is increased from chest x-ray on 12/02/2020. She is currently on 2 L of oxygen pulse ox is 93-94%, afebrile overnight, she continues on Levaquin for antibiotic coverage, she is ALLERGIC to penicillins. She continues on oral anticoagulation with Xarelto and she is on nebulized bronchodilators. CTA chest was completed, showed no evidence of pulmonary embolism, it did show likely with pleural effusion and consolidation in the right chest. On 12/04/2020 patient is seen in follow-up on selective care unit, she states she is overall feeling better, right-sided chest discomfort is improved, she is breathing fairly comfortably, she is awake and alert, oriented 3, she is on 2 L of oxygen pulse ox is 95%, no fever or chills overnight, blood pressure has been stable, occasional cough, with no phlegm production. We consulted interventional radiology for possibility of right-sided pigtail chest tube placement however they felt that fluid pocket was very small and were unable to place a chest tube. We requested that a small sample of pleural fluid, and interventional radiology did attempt that under ultrasound guidance however the fluid pocket was too small even for diagnostic thoracentesis. Patient continues on Levaquin for empiric antibiotic coverage, she is on IV Solu-Medrol, and breathing treatments, Xarelto was placed on hold yesterday for possibility of right-sided thoracentesis or chest tube placement. Today's labs have been reviewed, BNP results are available only, CBC is pending, electrolytes are within normal limits, B1 is 23 creatinine 0.79. Legionella urine antigen was negative, and COVID-19 PCR was negative. Cultures have shown no growth. On 12/05/2000 patient seen in follow-up on selective care unit, she is sitting up in the recliner, yesterday interventional radiology was unable to obtain a sample of the pleural fluid from a loculated pleural effusion on the right for analysis. As a result of was restarted last night, her right-sided chest discomfort although improved but not completely resolved. She does have an occasional cough, she is not able to bring up any phlegm, she remains on broad- spectrum antibiotics. She remains on nebulized bronchodilators, blood cultures remain negative On 12/06/2020 patient seen in follow-up on selective care unit, today's chest x- ray shows lung opacities on the right, that possibly may have been creased from most previous chest x-ray. She remains on 2 L of oxygen, pulse ox is 95%, she has been afebrile, right-sided pleurisy has not resolved but somewhat improved since admission. Vital signs stable. On 12/07/2020 patient seen in follow-up on selective care unit. She is resting in bed, she is feeling comfortable, she is currently intubated of oxygen pulse ox is 94%, she states she still hurts in the right lateral chest with deep breathing and coughing, but overall she is feeling better, no acute events overnight, no fever or chills. Yesterday it repeat ultrasound and chest did not show a sizable pleural effusion pocket for drainage. We restarted her chronic anticoagulation with Xarelto. At this time she remains on prednisone 40 mg daily, and she remains on antibiotics in the form of Levaquin 750 mg every 48 hours, we will give her a dose of IV Lasix. Reevaluated today on 12/08/2020, patient is doing much better today, breathing a lot easier. We gave the patient a dose of Lasix yesterday, and she remains on antibiotics, remains on Solu-Medrol, today I discussed the condition with her admitting physician, and suggested oral steroids, oral antibiotics, and if she continues to do well, we could potentially consider discharging the patient home in the next 24-48 hours. Clinically the patient is doing much better, and her chest x-ray is showing improvement in her pleural effusion on the right side. We'll see count is 14.9 hemoglobin is 12.3 left lites are normal renal profile is normal pro-calcitonin is extremely low, 0.02. Objective - Vital Signs Vital signs: Vital Signs Temp 98.5 F 12/08/20 12:46 Pulse 71 12/08/20 13:26 Resp 16 12/08/20 13:26 BP 118/57 12/08/20 12:46 Pulse Ox 97 12/08/20 12:46 Intake & Output 12/07/20 12/08/20 12/08/20 18:59 06:59 18:59 Intake Total 480 720 Output Total 1400 751 2 Balance -920 -751 718 Weight 79.1 kg 79.1 kg Intake: Oral 480 720 Output: Urine 1400 750 Stool 1 2 Other: Voiding Method Bedside Commode Bedside Commode # Voids 2 1 # Bowel Movements 1 - Exam GENERAL EXAM: Revealed a very pleasant 80-year-old female in no distress. HEAD: Normocephalic/atraumatic. ENT: PERRLA, EOMI, anicteric, dry mucous membranes, no neck masses, no JVD, no stridor. CHEST: No chest wall deformity. Symmetrical expansion. LUNGS: Equal air entry crackles at the right base persists. CVS: Regular rate and rhythm, normal S1 and S2, no gallops, no murmurs, no rubs ABDOMEN: Soft, nontender. No hepatosplenomegaly, normal bowel sounds, no guarding or rigidity. EXTREMITIES: No clubbing, no edema, no cyanosis, 2+ pulses and upper and lower extremities. MUSCULOSKELETAL: Muscle strength and tone normal. SKIN: No rashes CENTRAL NERVOUS SYSTEM: Alert and oriented -3. No gross focal deficit. PSYCHIATRIC: Normal mood affect and normal mental status examination - Labs CBC & Chem 7: 12/07/20 06:06 12/07/20 06:06 Labs: Abnormal Lab Results - Last 24 Hours (Table) 12/07/20 12/07/20 12/08/20 Range/Units 16:38 20:05 06:14 POC Glucose (mg/dL) 177 H 127 H 122 H (75-99) mg/dL 12/08/20 Range/Units 11:22 POC Glucose (mg/dL) 165 H (75-99) mg/dL Microbiology - Last 24 Hours (Table) 12/02/20 08:00 Blood Culture - Final Blood No Growth after 144 hours 12/02/20 08:07 Blood Culture - Final Blood No Growth after 144 hours Assessment and Plan Assessment: #1. Possible right upper lobe pneumonia with loculated pleural effusion, rule out possibility of empyema versus malignancy. Interventional radiology was unable to place right-sided pigtail chest tube or obtain pleural fluid for analysis related to small size of the pleural effusion. CT chest was negative for pulmonary embolism #2. Right-sided pleuritic chest pain secondary to right-sided pleural effusion #3. Recurrent pleuritic chest discomfort, patient had negative workup for pulmonary embolism, patient is on Xarelto, compliant, patient did have negative cardiac workup as well #4. Paroxysmal atrial fibrillation #5. Hypertension #6. History of MTHFR gene mutation #7. Type 2 diabetes mellitus #8. History of right-sided breast cancer with previous right sided mastectemy #9. History of splenectomy #10. History of bowel resection #11. History of IVC filter placement Recommendation: Oral prednisone. Oral antibiotics. Gentle diuresis. Consider discharge planning in the next 24-48 hours. Discussed her condition with the admitting physician/Dr. Ashraf. Repeat chest x-ray in a.m. Time with Patient: Less than 30
[2020-12-08 16:46] LABS: Glucose,Whole Blood 209 mg/dL (75-99)
[2020-12-08] MEDS: ATORVASTATIN 10 MG TAB PO SCH (17:10)
[2020-12-08] MEDS: RIVAROXABAN 20 MG TAB PO SCH (17:10)
--- NOTE | 2020-12-08 19:20 | P.PN ---
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 At her baseline uses a walker. Recently in the hospital and of October: Was admitted with asthma exacerbation. PE was ruled out. Cardiac catheterization showed minimal plaque in the proximal LAD. Severely tortuous coronary arteries. Medical management was advocated Patient is short of breath at baseline. Patient now presents with increasing shortness of breath. Right-sided pleuritic chest pain around the lower side at the rib cage. Slight cough. No chills. Appetite is fair. No edema. No fever no chills. December 03: Underwent computed tomography scan of the chest. For possible thoracentesis. Pleuritic pain is better. Breathing is better. Oral intake fair. Family present. On IV Zosyn December 04: Patient went down to interventional radiology for thoracentesis. Because of small pleural effusion no fluid was obtained. Patient right pleuritic chest pain greatly improved. Eating well. Discussed with the patient's family at the bedside. Also the patient. Hopefully discharge tomorrow December 05: Sitting up in chair. Eating. Right-sided pleuritic pain much improved. Breathing better. Appears to be quite at her baseline compared to last admission. No sputum production. No fever. Dr. Benz spoke to the patient and family and wants to watch for another 48 hours. Advised to the patient that sitting up with legs hanging able to the best position for a compromised lungs. Incentive spirometer ordered again. December 06: Sitting up in a chair. Eating lunch. Minimal cough. Ultrasound of the chest has been ordered by pulmonary. Further plan depending upon results. No other new issues. No fever. December 07: Sitting up in a chair. Breathing better. Minimal cough. No fever no chills. Repeat chest ultrasound showed minimal pleural effusion. December 08: Breathing stable. Minimal chronic pain. Greatly improved. Oral intake fair. Reclining in bed. Discussed Dr. Benz. We'll change IV Solu- Medrol to prednisone. Was given IV Lasix per Dr. Benz yesterday. Review of systems: Was done for constitutional, cardiovascular, GI, pulmonary. relevant finding as above Active Medications Acetaminophen (Acetaminophen Tab 500 Mg Tab) 500 mg PO Q6HR PRN PRN Reason: Fever and/ or Pain Last Admin: 12/06/20 14:56 Dose: 500 mg Documented by: Albuterol/Ipratropium (Ipratropium-Albuterol 3 Ml Neb) 3 ml INHALATION RT-Q4H PRN PRN Reason: shortness of breath Albuterol/Ipratropium (Ipratropium-Albuterol 3 Ml Neb) 3 ml INHALATION RT-Q4H [facility] Last Admin: 12/08/20 16:14 Dose: 3 ml Documented by: Atorvastatin Calcium (Atorvastatin 10 Mg Tab) 10 mg PO AC-SUPPER [facility] Last Admin: 12/08/20 17:10 Dose: 10 mg Documented by: Brimonidine Tartrate (Brimonidine Tartrate 0.2% Drops 5 Ml Btl) 1 drops BOTH EYES BID [facility] Last Admin: 12/08/20 08:35 Dose: 1 drops Documented by: Budesonide (Budesonide 1 Mg/2 Ml Nebu) 1 mg INHALATION RT-BID [facility] Last Admin: 12/08/20 08:25 Dose: 1 mg Documented by: Chlorthalidone (Chlorthalidone 25 Mg Tab) 25 mg PO DAILY@1200 [facility] Last Admin: 12/08/20 11:48 Dose: 25 mg Documented by: Clonazepam (Clonazepam 1 Mg Tab) 1 mg PO BID [facility] Last Admin: 12/08/20 08:37 Dose: 1 mg Documented by: Diltiazem HCl (Diltiazem Oral 30 Mg Tab) 30 mg PO TID [facility] Last Admin: 12/08/20 15:24 Dose: 30 mg Documented by: Dorzolamide HCl (Dorzolamide Hcl 2% Drops 10 Ml Btl) 1 drops BOTH EYES DAILY [facility] Last Admin: 12/08/20 08:35 Dose: 1 drops Documented by: Furosemide (Furosemide 20 Mg Tab) 20 mg PO DAILY [facility] Last Admin: 12/08/20 11:48 Dose: 20 mg Documented by: Gabapentin (Gabapentin 300 Mg Cap) 300 mg PO TID [facility] Last Admin: 12/08/20 15:24 Dose: 300 mg Documented by: Insulin Aspart (Insulin Aspart (Novolog) 100 Unit/Ml Vial) 0 unit SQ ACHS [facility]; Protocol Last Admin: 12/08/20 17:10 Dose: 6 unit Documented by: Latanoprost (Latanoprost 0.005% Ophth Drops 2.5 Ml Btl) 1 drops BOTH EYES HS [facility] Last Admin: 12/07/20 20:31 Dose: 1 drops Documented by: Levofloxacin (Levofloxacin 750 Mg Tab) 750 mg PO Q48H [facility] Last Admin: 12/08/20 08:37 Dose: 750 mg Documented by: Losartan Potassium (Losartan 50 Mg Tab) 50 mg PO DAILY [facility] Last Admin: 12/08/20 08:37 Dose: 50 mg Documented by: Miscellaneous Information (Pneumonia Protocol Utilized 1 Each [facility]) 1 each PO ONCE PRN PRN Reason: Per Protocol Polyethylene Glycol (Polyethylene Glycol 3350 17 Gm Powd.Pack) 17 gm PO DAILY [facility] Last Admin: 12/08/20 08:36 Dose: 17 gm Documented by: Potassium Chloride (Potassium Chloride Er 20 Meq Tab.Er) 20 meq PO DAILY [facility] Last Admin: 12/08/20 08:37 Dose: 20 meq Documented by: Prednisone (Prednisone 20 Mg Tab) 40 mg PO DAILY [facility] Last Admin: 12/08/20 08:37 Dose: 40 mg Documented by: Rivaroxaban (Rivaroxaban 20 Mg Tab) 20 mg PO W/SUPPER [facility]; Protocol Last Admin: 12/08/20 17:10 Dose: 20 mg Documented by: Sertraline HCl (Sertraline 50 Mg Tab) 150 mg PO DAILY [facility] Last Admin: 12/08/20 08:36 Dose: 150 mg Documented by: Timolol Maleate (Timolol 0.5% Ophth Drops 5 Ml Btl) 1 drops BOTH EYES HS [facility] Last Admin: 12/07/20 20:31 Dose: 1 drops Documented by: Past medical history to include: Home oxygen, right diaphragm paralysis, moderate persistent asthma, moderate secondary pulmonary hypertension, M.D. HF are gene mutation on xarelto, chronic pulmonary embolism and DVT, chronic abdominal wall hernia, hypertension, paroxysmal atrial fibrillation, Social history: Lives alone in the seated apartment. Home oxygen 2 L. Walker. No history of smoking or alcohol Family history: CAD. On examination: VITAL SIGNS: 97.7, 65, 16, 1 21 x 63, 95% on 2 L GENERAL APPEARANCE: Sitting up in a chair, bed to HEENT: Normal external appearance of nose and ear. Oral cavity normal EYES: Pupils equal. Conjunctiva normal. NECK: JVD not raised. Mass not palpable. RESPIRATORY: Respiratory effort increased. Lungs decreased breath sounds CARDIOVASCULAR: First and second sounds normal. No edema. ABDOMEN: Soft. Liver and spleen not palpable. No tenderness. No mass palpable. PSYCHIATRY: Alert and oriented x3. Mood and affect anxious INVESTIGATIONS, reviewed in the clinical context: December 07: WBC 14.9 hemoglobin 12.3 potassium 4.1 crit and 0.87 Chest ultrasound [12/06]: Minimal fluid December 03: Potassium 3.3 creatinine 0.79 pro-calcitonin 0.05 White count 26.3 hemoglobin 14.3 platelets 388 potassium 3.6 BUN 25 creatinine 0.93 EKG tracing personally reviewed by me-atrial fibrillation, rate 116, some ST segment changes Chest x-ray film personally reviewed by me-elevated right diaphragm. Decreased lung volumes. Possible right-sided infiltrate Further investigations from 2 weeks ago: Cardiac catheterization: Minimal plaque in the proximal LAD. Severely tortuous coronary arteries. 2-D echocardiogram: EF 55-60%. [id number] mitral regurgitation Chest CTA: No major pulmonary embolism Assessment and plan: -Probable right-sided pneumonia-much improved. On Levaquin. -Right-sided pleuritic chest pain from pneumonia, much improved -Acute exacerbation Moderate persistent asthma: Improving DuoNeb 4 times a day. IV Wuls-[id number] to by mouth prednisone -Moderate secondary pulmonary hypertension secondary to possibly asthma -MTHFR gene mutation Chronically on xarelto -Chronic pulmonary embolism and DVT patient On xarelto -Chronic hypoxic respiratory failure on home oxygen 2 L, from right diaphragm paralysis and asthma -Chronic abdominal wall hernia Follow clinically -Essential hypertension Cardizem 30 mg 3 times a day chlorthalidone 25 mg daily,, Cozaar 50 mg daily -Persistent atrial fibrillation, uncontrolled On xarelto. 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 Incentive spirometry -Anxiety depression Zoloft 150 mg a day -Chronic gait dysfunction Uses a walker at her baseline Decreased DuoNeb to 4 times a day. Change IV Solu-Medrol to by mouth prednisone. Other medications to continue. Patient to be discharged been stable with pulmonary.
[2020-12-08 20:02] LABS: Glucose,Whole Blood 153 mg/dL (75-99)
[2020-12-08] MEDS: LATANOPROST 0.005% OPHTH DROPS 2.5 ML BTL BOTH EYES SCH (20:46)
[2020-12-08] MEDS: TIMOLOL 0.5% OPHTH DROPS 5 ML BTL BOTH EYES SCH (20:46)
[2020-12-09 06:18] LABS: Glucose,Whole Blood 121 mg/dL (75-99)
[2020-12-09] MEDS: INSULIN ASPART (NovoLOG) 100 UNIT/ML VIAL SQ SCH ×4 (06:27→20:41)
[2020-12-09] MEDS: polyethylene glycoL 3350 17 GM POWD.PACK PO SCH (08:15)
[2020-12-09] MEDS: GABAPENTIN 300 MG CAP PO SCH ×3 (08:16→20:58)
[2020-12-09] MEDS: clonazePAM 1 MG TAB PO SCH ×2 (08:16→20:58)
[2020-12-09] MEDS: predniSONE 20 MG TAB PO SCH (08:16)
[2020-12-09] MEDS: SERTRALINE 50 MG TAB PO SCH (08:16)
[2020-12-09] MEDS: POTASSIUM CHLORIDE ER 20 MEQ TAB.ER PO SCH (08:16)
[2020-12-09] MEDS: DILTIAZEM ORAL 30 MG TAB PO SCH ×3 (08:16→20:58)
[2020-12-09] MEDS: LOSARTAN 50 MG TAB PO SCH (08:16)
[2020-12-09] MEDS: FUROSEMIDE 20 MG TAB PO SCH (08:16)
[2020-12-09] MEDS: DORZOLAMIDE HCL 2% DROPS 10 ML BTL BOTH EYES SCH (08:17)
[2020-12-09] MEDS: BRIMONIDINE TARTRATE 0.2% DROPS 5 ML BTL BOTH EYES SCH ×2 (08:17→20:57)
[2020-12-09] MEDS: BUDESONIDE 1 MG/2 ML NEBU INHALATION SCH ×2 (09:00→19:32)
[2020-12-09] MEDS: IPRATROPIUM-ALBUTEROL 3 ML NEB INHALATION SCH ×4 (09:01→19:32)
[2020-12-09] MEDS: ACETAMINOPHEN TAB 500 MG TAB PO PRN (10:30)
[2020-12-09] MEDS: CHLORTHALIDONE 25 MG TAB PO SCH (10:30)
[2020-12-09 10:31] LABS: Calcium 9.6 mg/dL (8.4-10.2); Potassium 3.7 mmol/L (3.5-5.1)
--- NOTE | 2020-12-09 11:35 | XR ---
EXAMINATION TYPE: XR chest 1V portable DATE OF EXAM: 12/09/2020 COMPARISON: 12/08/2020 HISTORY: 80 years Female. STUDY INDICATION GIVEN: pneumonia . TECHNIQUE: Portable Chest radiograph IMPRESSION: Low lung volumes which accentuate interstitial markings. Stable bibasilar opacities which could be on the basis of atelectasis and/or pneumonic infiltrate. Tr gt bilateral left greater than right pleural effusion without significant change.No pneumothorax. Evaluation of the cardiomediastinal silhouette is difficult. No acute osseous abnormality. Osseous structures are unchanged since yesterday. Atherosclerotic calcifications are seen in the aorta.
[2020-12-09 11:48] LABS: Glucose,Whole Blood 200 mg/dL (75-99)
--- NOTE | 2020-12-09 12:12 | P.PN ---
Subjective Progress Note Date: 12/09/20 Principal diagnosis: Right-sided pleuritic chest pain This is a 80-year-old female whom I was asked to see for acute onset of right- sided chest pain. Patient woke up around 2 AM with chest discomfort in the right side. Pain was described as sharp and pleuritic. Worse with coughing and sometimes with certain position changes. Patient also had some shortness of breath, she had previous history of DVT and pulmonary embolism, however she is maintained on Xarelto and she is very compliant with it on a regular basis. Patient also had a previous history of IVC filter placement. Looking back at her previous admission on 11/17, patient presented back then with mostly symptoms of back pain, and shortness of breath. Workup on the last admission included CT angiogram of the chest, and it was negative for pulmonary embolism. On this admission she had a chest x-ray questioning a new infiltrate in the right upper lobe and a small right-sided pleural effusion. Considering the findings patient was admitted and this consult was initiated. Patient is known to have history of DVT pulmonary embolism IVC filter placement COPD diabetes diaphragm paralysis generalized anxiety disorder depressed cancer and previous right-sided mastectomy. On this admission patient was noted to have a WBC of 26.3 hemoglobin 14.3 electrolytes are normal renal profile is normal, negative PCR for COVID-19 infection On 12/03/2020 patient seen in follow-up on selective care unit, she states the right-sided chest pain is still there but has improved since admission, her chest x-ray today showing persistent low lung volumes, and bibasilar along with right upper lung acute infiltrate and/or atelectasis, small to moderate-sized right pleural fluid collection which is increased from chest x-ray on 12/02/2020. She is currently on 2 L of oxygen pulse ox is 93-94%, afebrile overnight, she continues on Levaquin for antibiotic coverage, she is ALLERGIC to penicillins. She continues on oral anticoagulation with Xarelto and she is on nebulized bronchodilators. CTA chest was completed, showed no evidence of pulmonary embolism, it did show likely with pleural effusion and consolidation in the right chest. On 12/04/2020 patient is seen in follow-up on selective care unit, she states she is overall feeling better, right-sided chest discomfort is improved, she is breathing fairly comfortably, she is awake and alert, oriented 3, she is on 2 L of oxygen pulse ox is 95%, no fever or chills overnight, blood pressure has been stable, occasional cough, with no phlegm production. We consulted interventional radiology for possibility of right-sided pigtail chest tube placement however they felt that fluid pocket was very small and were unable to place a chest tube. We requested that a small sample of pleural fluid, and interventional radiology did attempt that under ultrasound guidance however the fluid pocket was too small even for diagnostic thoracentesis. Patient continues on Levaquin for empiric antibiotic coverage, she is on IV Solu-Medrol, and breathing treatments, Xarelto was placed on hold yesterday for possibility of right-sided thoracentesis or chest tube placement. Today's labs have been reviewed, BNP results are available only, CBC is pending, electrolytes are within normal limits, B1 is 23 creatinine 0.79. Legionella urine antigen was negative, and COVID-19 PCR was negative. Cultures have shown no growth. On 12/05/2000 patient seen in follow-up on selective care unit, she is sitting up in the recliner, yesterday interventional radiology was unable to obtain a sample of the pleural fluid from a loculated pleural effusion on the right for analysis. As a result of was restarted last night, her right-sided chest discomfort although improved but not completely resolved. She does have an occasional cough, she is not able to bring up any phlegm, she remains on broad- spectrum antibiotics. She remains on nebulized bronchodilators, blood cultures remain negative On 12/06/2020 patient seen in follow-up on [facility] care [facility], today's chest x- ray shows lung opacities on the right, that possibly may have been creased from most previous chest x-ray. She remains on 2 L of oxygen, pulse ox is 95%, she has been afebrile, right-sided pleurisy has not resolved but somewhat improved since admission. Vital signs stable. On 12/07/2020 patient seen in follow-up on selective care unit. She is resting in bed, she is feeling comfortable, she is currently intubated of oxygen pulse ox is 94%, she states she still hurts in the right lateral chest with deep breathing and coughing, but overall she is feeling better, no acute events overnight, no fever or chills. Yesterday it repeat ultrasound and chest did not show a sizable pleural effusion pocket for drainage. We restarted her chronic anticoagulation with Xarelto. At this time she remains on prednisone 40 mg daily, and she remains on antibiotics in the form of Levaquin 750 mg every 48 hours, we will give her a dose of IV Lasix. On 12/09/2020 patient seen in follow-up on selective care unit. She states she still having some mild chest discomfort with deep breathing on the right side of her chest, otherwise appears to be in no acute distress, does not appear to be in any respiratory distress, she is on 2 L of oxygen pulse ox 95%, she is afebrile, hemodynamically she is stable, follow-up chest x-rays pending for today, she remains on Levaquin for antibiotic coverage, we also had a maintenance dose of oral Lasix 20 mg yesterday, her steroids have been transitioned to oral prednisone, she is on chronic anticoagulation in the form of 0 out of 4 previous history of pulmonary embolism and DVT. Today's labs have been reviewed, sodium is 135, potassium 3.7, chloride is 97, CO2 33, B1 is 34 creatinine is 1.05. Blood cultures have been negative. Objective - Vital Signs Vital signs: Vital Signs Temp 98.1 F 12/09/20 10:09 Pulse 67 12/09/20 10:12 Resp 17 12/09/20 10:12 BP 141/76 12/09/20 10:09 Pulse Ox 95 12/09/20 10:09 Intake & Output 12/08/20 12/09/20 12/09/20 18:59 06:59 18:59 Intake Total 900 900 Output Total 2 401 2 Balance 898 -401 898 Weight 79.1 kg 75.8 kg Intake: Oral 900 900 Output: Urine 400 Stool 2 1 2 Other: Voiding Method Bedside Commode Bedside Commode Bedside Commode # Voids 2 2 # Bowel Movements 1 - Exam GENERAL EXAM: Alert, very pleasant, [id number] female patient on 2 L of oxygen with pulse ox 93% comfortable in no apparent distress. HEAD: Normocephalic/atraumatic. EYES: Normal reaction of pupils, equal size. Conjunctiva pink, sclera white. NOSE: Clear with pink turbinates. THROAT: No erythema or exudates. NECK: No masses, no JVD, no thyroid enlargement, no adenopathy. CHEST: No chest wall deformity. Symmetrical expansion. LUNGS: Equal air entry with diminished breath sounds and some crackles on the right CVS: Regular rate and rhythm, normal S1 and S2, no gallops, no murmurs, no rubs ABDOMEN: Soft, nontender. No hepatosplenomegaly, normal bowel sounds, no guarding or rigidity. EXTREMITIES: No clubbing, no edema, no cyanosis, 2+ pulses and upper and lower extremities. MUSCULOSKELETAL: Muscle strength and tone normal. SPINE: No scoliosis or deformity SKIN: No rashes CENTRAL NERVOUS SYSTEM: Alert and oriented -3. No focal deficits, tone is normal in all 4 extremities. PSYCHIATRIC: Alert and oriented -3. Appropriate affect. Intact judgment and insight. - Labs CBC & Chem 7: 12/07/20 06:06 12/09/20 09:15 Labs: Abnormal Lab Results - Last 24 Hours (Table) 12/08/20 12/08/20 12/09/20 Range/Units 16:44 20:01 06:17 Sodium (137-145) mmol/L Chloride (98-107) mmol/L Carbon Dioxide (22-30) mmol/L BUN (7-17) mg/dL Creatinine (0.52-1.04) mg/dL Glucose (74-99) mg/dL POC Glucose (mg/dL) 209 H 153 H 121 H (75-99) mg/dL 12/09/20 12/09/20 Range/Units 09:15 11:45 Sodium 135 L (137-145) mmol/L Chloride 97 L (98-107) mmol/L Carbon Dioxide 33 H (22-30) mmol/L BUN 34 H (7-17) mg/dL Creatinine 1.05 H (0.52-1.04) mg/dL Glucose 236 H (74-99) mg/dL POC Glucose (mg/dL) 200 H (75-99) mg/dL Microbiology - Last 24 Hours (Table) 12/02/20 08:00 Blood Culture - Final Blood No Growth after 144 hours 12/02/20 08:07 Blood Culture - Final Blood No Growth after 144 hours Assessment and Plan Plan: Assessment: #1. Possible right upper lobe pneumonia with loculated pleural effusion, rule out possibility of empyema versus malignancy. Interventional radiology was unable to place right-sided pigtail chest tube or obtain pleural fluid for analysis related to small size of the pleural effusion. CT chest was negative for pulmonary embolism #2. Right-sided pleuritic chest pain related to the above #3. Recurrent pleuritic chest discomfort, patient had negative workup for pulmo nary embolism, patient is on Xarelto, compliant, patient did have negative cardiac workup as well #4. Paroxysmal atrial fibrillation #5. Hypertension #6. History of MTHFR gene mutation #7. Type 2 diabetes mellitus #8. History of right-sided breast cancer with previous right sided mastectemy #9. History of splenectomy #10. History of bowel resection #11. History of IVC filter placement Plan: Obtain follow-up chest x-ray today Still having some mild mild right-sided pleuritic chest pain with deep breathing Continue antibiotics Continue oral prednisone Continue oral Lasix Continue monitoring accurate intake and output Wean FiO2 Increase activity as tolerated I performed a history & physical examination of the patient and discussed their management with my nurse practitioner, Charmaine Rodriguez. I reviewed the nurse practitioner's note and agree with the documented findings and plan of care. Lung sounds are positive for diminished breath sounds throughout the lung mcgovern. The findings and the impression was discussed with the patient. I attest to the documentation by the nurse practitioner. Time with Patient: Less than 30
--- NOTE | 2020-12-09 14:32 | P.PN ---
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 At her baseline uses a walker. Recently in the hospital and of October: Was admitted with asthma exacerbation. PE was ruled out. Cardiac catheterization showed minimal plaque in the proximal LAD. Severely tortuous coronary arteries. Medical management was advocated Patient is short of breath at baseline. Patient now presents with increasing shortness of breath. Right-sided pleuritic chest pain around the lower side at the rib cage. Slight cough. No chills. Appetite is fair. No edema. No fever no chills. December 03: Underwent computed tomography scan of the chest. For possible thoracentesis. Pleuritic pain is better. Breathing is better. Oral intake fair. Family present. On IV Zosyn December 04: Patient went down to interventional radiology for thoracentesis. Because of small pleural effusion no fluid was obtained. Patient right pleuritic chest pain greatly improved. Eating well. Discussed with the patient's family at the bedside. Also the patient. Hopefully discharge tomorrow December 05: Sitting up in chair. Eating. Right-sided pleuritic pain much improved. Breathing better. Appears to be quite at her baseline compared to last admission. No sputum production. No fever. Dr. Benz spoke to the patient and family and wants to watch for another 48 hours. Advised to the patient that sitting up with legs hanging able to the best position for a compromised lungs. Incentive spirometer ordered again. December 06: Sitting up in a chair. Eating lunch. Minimal cough. Ultrasound of the chest has been ordered by pulmonary. Further plan depending upon results. No other new issues. No fever. December 07: Sitting up in a chair. Breathing better. Minimal cough. No fever no chills. Repeat chest ultrasound showed minimal pleural effusion. December 08: Breathing stable. Minimal chronic pain. Greatly improved. Oral intake fair. Reclining in bed. Discussed Dr. Benz. We'll change IV Solu- Medrol to prednisone. Was given IV Lasix per Dr. Benz yesterday. December 09: Reclining in bed. No right pleuritic pain. Breathing better. Oral intake fair. On oral prednisone. Oral Levaquin Review of systems: Was done for constitutional, cardiovascular, GI, pulmonary. relevant finding as above Active Medications Acetaminophen (Acetaminophen Tab 500 Mg Tab) 500 mg PO Q6HR PRN PRN Reason: Fever and/ or Pain Last Admin: 12/09/20 10:30 Dose: 500 mg Documented by: Albuterol/Ipratropium (Ipratropium-Albuterol 3 Ml Neb) 3 ml INHALATION RT-Q4H PRN PRN Reason: shortness of breath Albuterol/Ipratropium (Ipratropium-Albuterol 3 Ml Neb) 3 ml INHALATION RT-QID [facility] Last Admin: 12/09/20 12:40 Dose: 3 ml Documented by: Atorvastatin Calcium (Atorvastatin 10 Mg Tab) 10 mg PO AC-SUPPER [facility] Last Admin: 12/08/20 17:10 Dose: 10 mg Documented by: Brimonidine Tartrate (Brimonidine Tartrate 0.2% Drops 5 Ml Btl) 1 drops BOTH EYES BID [facility] Last Admin: 12/09/20 08:17 Dose: 1 drops Documented by: Budesonide (Budesonide 1 Mg/2 Ml Nebu) 1 mg INHALATION RT-BID [facility] Last Admin: 12/09/20 09:00 Dose: 1 mg Documented by: Chlorthalidone (Chlorthalidone 25 Mg Tab) 25 mg PO DAILY@1200 [facility] Last Admin: 12/09/20 10:30 Dose: 25 mg Documented by: Clonazepam (Clonazepam 1 Mg Tab) 1 mg PO BID [facility] Last Admin: 12/09/20 08:16 Dose: 1 mg Documented by: Diltiazem HCl (Diltiazem Oral 30 Mg Tab) 30 mg PO TID [facility] Last Admin: 12/09/20 08:16 Dose: 30 mg Documented by: Dorzolamide HCl (Dorzolamide Hcl 2% Drops 10 Ml Btl) 1 drops BOTH EYES DAILY [facility] Last Admin: 12/09/20 08:17 Dose: 1 drops Documented by: Furosemide (Furosemide 20 Mg Tab) 20 mg PO DAILY [facility] Last Admin: 12/09/20 08:16 Dose: 20 mg Documented by: Gabapentin (Gabapentin 300 Mg Cap) 300 mg PO TID [facility] Last Admin: 12/09/20 08:16 Dose: 300 mg Documented by: Insulin Aspart (Insulin Aspart (Novolog) 100 Unit/Ml Vial) 0 unit SQ ACHS [facility]; Protocol Last Admin: 12/09/20 11:56 Dose: 5 unit Documented by: Latanoprost (Latanoprost 0.005% Ophth Drops 2.5 Ml Btl) 1 drops BOTH EYES HS [facility] Last Admin: 12/08/20 20:46 Dose: 1 drops Documented by: Levofloxacin (Levofloxacin 750 Mg Tab) 750 mg PO Q48H [facility] Last Admin: 12/08/20 08:37 Dose: 750 mg Documented by: Losartan Potassium (Losartan 50 Mg Tab) 50 mg PO DAILY [facility] Last Admin: 12/09/20 08:16 Dose: 50 mg Documented by: Miscellaneous Information (Pneumonia Protocol Utilized 1 Each Misc) 1 each PO ONCE PRN PRN Reason: Per Protocol Polyethylene Glycol (Polyethylene Glycol 3350 17 Gm Powd.Pack) 17 gm PO DAILY [facility] Last Admin: 12/09/20 08:15 Dose: 17 gm Documented by: Potassium Chloride (Potassium Chloride Er 20 Meq Tab.Er) 20 meq PO DAILY [facility] Last Admin: 12/09/20 08:16 Dose: 20 meq Documented by: Prednisone (Prednisone 20 Mg Tab) 40 mg PO DAILY [facility] Last Admin: 12/09/20 08:16 Dose: 40 mg Documented by: Rivaroxaban (Rivaroxaban 20 Mg Tab) 20 mg PO W/SUPPER [facility]; Protocol Last Admin: 12/08/20 17:10 Dose: 20 mg Documented by: Sertraline HCl (Sertraline 50 Mg Tab) 150 mg PO DAILY [facility] Last Admin: 12/09/20 08:16 Dose: 150 mg Documented by: Timolol Maleate (Timolol 0.5% Ophth Drops 5 Ml Btl) 1 drops BOTH EYES HS [facility] Last Admin: 12/08/20 20:46 Dose: 1 drops Documented by: Past medical history to include: Home oxygen, right diaphragm paralysis, moderate persistent asthma, moderate secondary pulmonary hypertension, M.D. HF are gene mutation on xarelto, chronic pulmonary embolism and DVT, chronic abdominal wall hernia, hypertension, paroxysmal atrial fibrillation, Social history: Lives alone in the seated apartment. Home oxygen 2 L. Walker. No history of smoking or alcohol Family history: CAD. On examination: VITAL SIGNS: 98, 65, 18, 150-64, 93% on 2 L GENERAL APPEARANCE: Reclining in bed, comfortable awake HEENT: Normal external appearance of nose and ear. Oral cavity normal EYES: Pupils equal. Conjunctiva normal. NECK: JVD not raised. Mass not palpable. RESPIRATORY: Respiratory effort increased. Lungs decreased breath sounds , right basal crackles CARDIOVASCULAR: First and second sounds normal. No edema. ABDOMEN: Soft. Liver and spleen not palpable. No tenderness. No mass palpable. PSYCHIATRY: Alert and oriented x3. Mood and affect anxious INVESTIGATIONS, reviewed in the clinical context: December 09: Potassium 3.7 bicarb 33 creatinine 1.05 December 07: WBC 14.9 hemoglobin 12.3 potassium 4.1 crit and 0.87 Chest ultrasound [12/06]: Minimal fluid December 03: Potassium 3.3 creatinine 0.79 pro-calcitonin 0.05 White count 26.3 hemoglobin 14.3 platelets 388 potassium 3.6 BUN 25 creatinine 0.93 EKG tracing personally reviewed by me-atrial fibrillation, rate 116, some ST segment changes Chest x-ray film personally reviewed by me-elevated right diaphragm. Decreased lung volumes. Possible right-sided infiltrate Further investigations from 2 weeks ago: Cardiac catheterization: Minimal plaque in the proximal LAD. Severely tortuous coronary arteries. 2-D echocardiogram: EF 55-60%. [id number] mitral regurgitation Chest CTA: No major pulmonary embolism Assessment and plan: -Probable right-sided pneumonia-much improved. On Levaquin. -Right-sided pleuritic chest pain from pneumonia, much improved -Acute exacerbation Moderate persistent asthma: Improving DuoNeb 4 times a day. IV [id number] to by mouth prednisone -Moderate secondary pulmonary hypertension secondary to possibly asthma -MTHFR gene mutation Chronically on xarelto -Chronic pulmonary embolism and DVT patient On xarelto -Chronic hypoxic respiratory failure on home oxygen 2 L, from right diaphragm paralysis and asthma -Chronic abdominal wall hernia Follow clinically -Essential hypertension Cardizem 30 mg 3 times a day chlorthalidone 25 mg daily,, Cozaar 50 mg daily -Persistent atrial fibrillation, uncontrolled On xarelto. 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 Incentive spirometry -Anxiety depression Zoloft 150 mg a day -Chronic gait dysfunction Uses a walker at her baseline Patient on oral prednisone and Levaquin. Other medications to continue. DuoNeb. Using incentive spirometry. DC when okay with pulmonary. Discussed with patient.
[2020-12-09 16:56] LABS: Glucose,Whole Blood 217 mg/dL (75-99)
[2020-12-09] MEDS: RIVAROXABAN 20 MG TAB PO SCH (17:06)
[2020-12-09] MEDS: ATORVASTATIN 10 MG TAB PO SCH (17:07)
[2020-12-09 20:38] LABS: Glucose,Whole Blood 121 mg/dL (75-99)
[2020-12-09] MEDS: LATANOPROST 0.005% OPHTH DROPS 2.5 ML BTL BOTH EYES SCH (20:57)
[2020-12-09] MEDS: TIMOLOL 0.5% OPHTH DROPS 5 ML BTL BOTH EYES SCH (20:57)
[2020-12-10 06:14] LABS: Glucose,Whole Blood 95 mg/dL (75-99)
[2020-12-10] MEDS: INSULIN ASPART (NovoLOG) 100 UNIT/ML VIAL SQ SCH ×2 (06:21→12:06)
[2020-12-10 07:21] VITALS: RESP 16; TEMP 98
[2020-12-10] MEDS: BUDESONIDE 1 MG/2 ML NEBU INHALATION SCH (08:12)
[2020-12-10] MEDS: IPRATROPIUM-ALBUTEROL 3 ML NEB INHALATION SCH ×2 (08:12→11:37)
[2020-12-10] MEDS: polyethylene glycoL 3350 17 GM POWD.PACK PO SCH (08:33)
[2020-12-10] MEDS: clonazePAM 1 MG TAB PO SCH (08:34)
[2020-12-10] MEDS: DORZOLAMIDE HCL 2% DROPS 10 ML BTL BOTH EYES SCH (08:34)
[2020-12-10] MEDS: FUROSEMIDE 20 MG TAB PO SCH (08:34)
[2020-12-10] MEDS: LEVOFLOXACIN 750 MG TAB PO SCH (08:34)
[2020-12-10] MEDS: SERTRALINE 50 MG TAB PO SCH (08:34)
[2020-12-10] MEDS: LOSARTAN 50 MG TAB PO SCH (08:34)
[2020-12-10] MEDS: DILTIAZEM ORAL 30 MG TAB PO SCH (08:34)
[2020-12-10] MEDS: predniSONE 20 MG TAB PO SCH (08:34)
[2020-12-10] MEDS: POTASSIUM CHLORIDE ER 20 MEQ TAB.ER PO SCH (08:34)
[2020-12-10] MEDS: GABAPENTIN 300 MG CAP PO SCH (08:34)
[2020-12-10] MEDS: BRIMONIDINE TARTRATE 0.2% DROPS 5 ML BTL BOTH EYES SCH (08:35)
[2020-12-10] MEDS: ACETAMINOPHEN TAB 500 MG TAB PO PRN (08:38)
[2020-12-10] MEDS: CHLORTHALIDONE 25 MG TAB PO SCH (11:15)
[2020-12-10 11:20] VITALS: BP 131/64
[2020-12-10 11:48] VITALS: PULSE 62
[2020-12-10 12:03] LABS: Glucose,Whole Blood 225 mg/dL (75-99)
--- NOTE | 2020-12-10 14:12 | P.DS ---
Providers Date of admission: 12/02/20 09:04 Expected date of discharge: 12/10/20 Attending physician: Rhett Ashraf Consults: 12/02/20 09:04 Consult Physician Routine Consulting Provider: Atilio Ayers Consult Reason/Comments: pneumonia Do you want consulting provider notified?: Yes 12/02/20 09:05 Consult Physician Routine Consulting Provider: Chente Churchill Consult Reason/Comments: a fib, cp Do you want consulting provider notified?: Yes Primary care physician: Rg Barba [facility] Course: Chief Complaint: Right pleuritic chest pain 80-year-old patient, Dr. 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 At her baseline uses a walker. Recently in the hospital and of October: Was admitted with asthma exacerbation. PE was ruled out. Cardiac catheterization showed minimal plaque in the proximal LAD. Severely tortuous coronary arteries. Medical management was advocated Patient is short of breath at baseline. Patient now presents with increasing shortness of breath. Right-sided pleuritic chest pain around the lower side at the rib cage. Slight cough. No chills. Appetite is fair. No edema. No fever no chills. December 03: Underwent computed tomography scan of the chest. For possible thoracentesis. Pleuritic pain is better. Breathing is better. Oral intake fair. Family present. On IV Zosyn December 04: Patient went down to interventional radiology for thoracentesis. Because of small pleural effusion no fluid was obtained. Patient right pleur itic chest pain greatly improved. Eating well. Discussed with the patient's family at the bedside. Also the patient. Hopefully discharge tomorrow December 05: Sitting up in chair. Eating. Right-sided pleuritic pain much improved. Breathing better. Appears to be quite at her baseline compared to last admission. No sputum production. No fever. Dr. Benz spoke to the patient and family and wants to watch for another 48 hours. Advised to the patient that sitting up with legs hanging able to the best position for a compromised lungs. Incentive spirometer ordered again. December 06: Sitting up in a chair. Eating lunch. Minimal cough. Ultrasound of the chest has been ordered by pulmonary. Further plan depending upon results. No other new issues. No fever. December 07: Sitting up in a chair. Breathing better. Minimal cough. No fever no chills. Repeat chest ultrasound showed minimal pleural effusion. December 08: Breathing stable. Minimal chronic pain. Greatly improved. Oral intake fair. Reclining in bed. Discussed Dr. Benz. We'll change IV Solu- Medrol to prednisone. Was given IV Lasix per Dr. Benz yesterday. December 09: Reclining in bed. No right pleuritic pain. Breathing better. Oral intake fair. On oral prednisone. Oral Levaquin December 10: Stable. Fair oral intake. Seen by pulmonary. To be discharged on Ventolin, prednisone. Discussed with patient. Consultation: Dr. Benz in partners from pulmonary Dr. Sanchez from cardiology Past medical history to include: Home oxygen, right diaphragm paralysis, moderate persistent asthma, moderate secondary pulmonary hypertension, M.D. HF are gene mutation on xarelto, chronic pulmonary embolism and DVT, chronic abdominal wall hernia, hypertension, paroxysmal atrial fibrillation, Social history: Lives alone in the seated apartment. Home oxygen 2 L. Walker. No history of smoking or alcohol Family history: CAD. On examination: VITAL SIGNS: 98, 61, 16, 1 31 x 64, 98% on 2 L GENERAL APPEARANCE: Reclining in bed, comfortable awake HEENT: Normal external appearance of nose and ear. Oral cavity normal EYES: Pupils equal. Conjunctiva normal. NECK: JVD not raised. Mass not palpable. RESPIRATORY: Respiratory effort increased. Lungs decreased breath sounds , right basal crackles CARDIOVASCULAR: First and second sounds normal. No edema. ABDOMEN: Soft. Liver and spleen not palpable. No tenderness. No mass palpable. PSYCHIATRY: Alert and oriented x3. Mood and affect anxious INVESTIGATIONS, reviewed in the clinical context: December 09: Potassium 3.7 bicarb 33 creatinine 1.05 December 07: WBC 14.9 hemoglobin 12.3 potassium 4.1 crit and 0.87 Chest ultrasound [12/06]: Minimal fluid December 03: Potassium 3.3 creatinine 0.79 pro-calcitonin 0.05 White count 26.3 hemoglobin 14.3 platelets 388 potassium 3.6 BUN 25 creatinine 0.93 EKG tracing personally reviewed by me-atrial fibrillation, rate 116, some ST segment changes Chest x-ray film personally reviewed by me-elevated right diaphragm. Decreased lung volumes. Possible right-sided infiltrate Further investigations from 2 weeks ago: Cardiac catheterization: Minimal plaque in the proximal LAD. Severely tortuous coronary arteries. 2-D echocardiogram: EF 55-60%. [id number] mitral regurgitation Chest CTA: No major pulmonary embolism Assessment and plan: -Probable right-sided pneumonia-much improved. Completed course of Levaquin -Right-sided pleuritic chest pain from pneumonia, much improved -Acute exacerbation Moderate persistent asthma: Improving DuoNeb 4 times a day. IV [id number] to by mouth prednisone -Moderate secondary pulmonary hypertension secondary to possibly asthma -MTHFR gene mutation Chronically on xarelto -Chronic pulmonary embolism and DVT patient On xarelto -Chronic hypoxic respiratory failure on home oxygen 2 L, from right diaphragm paralysis and asthma -Chronic abdominal wall hernia Follow clinically -Essential hypertension Cardizem 30 mg 3 times a day chlorthalidone 25 mg daily,, Cozaar 50 mg daily -Persistent atrial fibrillation, uncontrolled On xarelto. 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 Incentive spirometry -Anxiety depression Zoloft 150 mg a day -Chronic gait dysfunction Uses a walker at her baseline Disposition: Home Plan - Discharge Summary Discharge Rx Participant: No New Discharge Prescriptions: New Albuterol Nebulized [Ventolin Nebulized] 2.5 mg INHALATION TID 6 Days #90 ml Diltiazem Oral [Cardizem*] 30 mg PO TID #90 tab predniSONE 10 mg PO DAILY #30 tab Continue Sertraline HCl [Zoloft] 150 mg PO DAILY Atorvastatin Calcium [Lipitor] 10 mg PO AC-SUPPER Gabapentin [Neurontin] 300 mg PO TID Rivaroxaban [Xarelto] 20 mg PO AC-SUPPER Brinzolamide/Brimonidine Tart [Simbrinza 1%-0.2% Eye Drops] 1 drop BOTH EYES BID Betaxolol HCl [Betaxolol HCl 0.5% Ophth Soln] 1 drop BOTH EYES DAILY Losartan [Cozaar] 50 mg PO DAILY Bimatoprost [Lumigan .01% Ophth Soln] 1 drop BOTH EYES HS Chlorthalidone [Hygroton] 25 mg PO DAILY@1200 #0 clonazePAM [KlonoPIN] 1 mg PO BID polyethylene glycoL 3350 [Miralax] 17 gm PO DAILY Discontinued amLODIPine [Norvasc] 10 mg PO DAILY #30 tab Discharge Medication List Atorvastatin Calcium [Lipitor] 10 mg PO AC-SUPPER 01/28/17 [History] Gabapentin [Neurontin] 300 mg PO TID 01/28/17 [History] Sertraline HCl [Zoloft] 150 mg PO DAILY 01/28/17 [History] Brinzolamide/Brimonidine Tart [Simbrinza 1%-0.2% Eye Drops] 1 drop BOTH EYES BID 12/06/19 [History] Rivaroxaban [Xarelto] 20 mg PO AC-SUPPER 12/06/19 [History] Betaxolol HCl [Betaxolol HCl 0.5% Ophth Soln] 1 drop BOTH EYES DAILY 11/16/20 [History] Bimatoprost [Lumigan .01% Ophth Soln] 1 drop BOTH EYES HS 11/16/20 [History] Losartan [Cozaar] 50 mg PO DAILY 11/16/20 [History] Chlorthalidone [Hygroton] 25 mg PO DAILY@1200 #0 11/21/20 [Rx] polyethylene glycoL 3350 [Miralax] 17 gm PO DAILY 11/21/20 [Rx] clonazePAM [KlonoPIN] 1 mg PO BID 12/02/20 [History] Albuterol Nebulized [Ventolin Nebulized] 2.5 mg INHALATION TID 6 Days #90 ml 12/05/20 [Rx] Diltiazem Oral [Cardizem*] 30 mg PO TID #90 tab 12/05/20 [Rx] predniSONE 10 mg PO DAILY #30 tab 12/05/20 [Rx] Follow up Appointment(s)/Referral(s): [employer] [Other] - 1 Week Stefan Rivera MD [STAFF PHYSICIAN] - 2 Weeks [facility], [NON-STAFF] - Rg Barba DO [Primary Care Provider] - 1-2 days Patient Instructions/Handouts: Bronchiolitis (DC), Pneumonitis (DC)
--- NOTE | 2020-12-10 14:15 | P.PN ---
Subjective Progress Note Date: 12/10/20 Principal diagnosis: Right-sided pleuritic chest pain with right pleural effusion possibly parapneumonic. This is a 80-year-old female whom I was asked to see for acute onset of right- sided chest pain. Patient woke up around 2 AM with chest discomfort in the right side. Pain was described as sharp and pleuritic. Worse with coughing and sometimes with certain position changes. Patient also had some shortness of breath, she had previous history of DVT and pulmonary embolism, however she is maintained on Xarelto and she is very compliant with it on a regular basis. Patient also had a previous history of IVC filter placement. Looking back at her previous admission on 11/17, patient presented back then with mostly symptoms of back pain, and shortness of breath. Workup on the last admission included CT angiogram of the chest, and it was negative for pulmonary embolism. On this admission she had a chest x-ray questioning a new infiltrate in the right upper lobe and a small right-sided pleural effusion. Considering the findings patient was admitted and this consult was initiated. Patient is known to have history of DVT pulmonary embolism IVC filter placement COPD diabetes diaphragm paralysis generalized anxiety disorder depressed cancer and previous right-sided mastectomy. On this admission patient was noted to have a WBC of 26.3 hemoglobin 14.3 electrolytes are normal renal profile is normal, negative PCR for COVID-19 infection On 12/03/2020 patient seen in follow-up on selective care unit, she states the right-sided chest pain is still there but has improved since admission, her chest x-ray today showing persistent low lung volumes, and bibasilar along with right upper lung acute infiltrate and/or atelectasis, small to moderate-sized right pleural fluid collection which is increased from chest x-ray on 12/02/2020. She is currently on 2 L of oxygen pulse ox is 93-94%, afebrile overnight, she continues on Levaquin for antibiotic coverage, she is ALLERGIC to penicillins. She continues on oral anticoagulation with Xarelto and she is on nebulized bronchodilators. CTA chest was completed, showed no evidence of pulmonary embolism, it did show likely with pleural effusion and consolidation in the right chest. On 12/04/2020 patient is seen in follow-up on selective care unit, she states she is overall feeling better, right-sided chest discomfort is improved, she is breathing fairly comfortably, she is awake and alert, oriented 3, she is on 2 L of oxygen pulse ox is 95%, no fever or chills overnight, blood pressure has been stable, occasional cough, with no phlegm production. We consulted interventional radiology for possibility of right-sided pigtail chest tube placement however they felt that fluid pocket was very small and were unable to place a chest tube. We requested that a small sample of pleural fluid, and interventional radiology did attempt that under ultrasound guidance however the fluid pocket was too small even for diagnostic thoracentesis. Patient continues on Levaquin for empiric antibiotic coverage, she is on IV Solu-Medrol, and breathing treatments, Xarelto was placed on hold yesterday for possibility of right-sided thoracentesis or chest tube placement. Today's labs have been reviewed, BNP results are available only, CBC is pending, electrolytes are within normal limits, B1 is 23 creatinine 0.79. Legionella urine antigen was negative, and COVID-19 PCR was negative. Cultures have shown no growth. On 12/05/2000 patient seen in follow-up on selective care unit, she is sitting up in the recliner, yesterday interventional radiology was unable to obtain a sample of the pleural fluid from a loculated pleural effusion on the right for analysis. As a result of was restarted last night, her right-sided chest discomfort although improved but not completely resolved. She does have an occasional cough, she is not able to bring up any phlegm, she remains on broad- spectrum antibiotics. She remains on nebulized bronchodilators, blood cultures remain negative On 12/06/2020 patient seen in follow-up on selective care unit, today's chest x- ray shows lung opacities on the right, that possibly may have been creased from most previous chest x-ray. She remains on 2 L of oxygen, pulse ox is 95%, she has been afebrile, right-sided pleurisy has not resolved but somewhat improved since admission. Vital signs stable. On 12/07/2020 patient seen in follow-up on selective care unit. She is resting in bed, she is feeling comfortable, she is currently intubated of oxygen pulse ox is 94%, she states she still hurts in the right lateral chest with deep breathing and coughing, but overall she is feeling better, no acute events overnight, no fever or chills. Yesterday it repeat ultrasound and chest did not show a sizable pleural effusion pocket for drainage. We restarted her chronic anticoagulation with Xarelto. At this time she remains on prednisone 40 mg daily, and she remains on antibiotics in the form of Levaquin 750 mg every 48 hours, we will give her a dose of IV Lasix. Reevaluated today on 12/08/2020, patient is doing much better today, breathing a lot easier. We gave the patient a dose of Lasix yesterday, and she remains on antibiotics, remains on Solu-Medrol, today I discussed the condition with her admitting physician, and suggested oral steroids, oral antibiotics, and if she continues to do well, we could potentially consider discharging the patient home in the next 24-48 hours. Clinically the patient is doing much better, and her chest x-ray is showing improvement in her pleural effusion on the right side. We'll see count is 14.9 hemoglobin is 12.3 left lites are normal renal profile is normal pro-calcitonin is extremely low, 0.02. Patient was reevaluated today on 12/10/2020, patient is doing great, hardly any cough no wheezing no shortness of breath. No chest pain. No chest x-ray today, however her chest x-ray yesterday showed definite improvement in her pleural effusions and in her questionable infiltrate. Labs today were basically unremarkable including a relatively normal basic metabolic profile, normal renal profile. And there is no CBC done today. Objective - Vital Signs Vital signs: Vital Signs Temp 98 F 12/10/20 11:19 Pulse 62 12/10/20 11:47 Resp 16 12/10/20 11:43 BP 131/64 12/10/20 11:19 Pulse Ox 98 12/10/20 11:19 Intake & Output 12/09/20 12/10/20 12/10/20 18:59 06:59 18:59 Intake Total 2160 120 Output Total 802 1000 1700 Balance 1358 -1000 -1580 Weight 75.5 kg Intake: Oral 2160 120 Output: Urine 300 700 Stool 502 1000 1000 Other: Voiding Method Bedside Commode Bedside Commode Bedside Commode # Voids 1 1 1 # Bowel Movements 1 1 1 - Exam GENERAL EXAM: Revealed a very pleasant 80-year-old female in no distress. On 2 L nasal cannula. HEAD: Normocephalic/atraumatic. ENT: PERRLA, EOMI, anicteric, dry mucous membranes, no neck masses, no JVD, no stridor. CHEST: No chest wall deformity. Symmetrical expansion. LUNGS: Equal air entry crackles at the right base persists. CVS: Regular rate and rhythm, normal S1 and S2, no gallops, no murmurs, no rubs ABDOMEN: Soft, nontender. No hepatosplenomegaly, normal bowel sounds, no guarding or rigidity. EXTREMITIES: No clubbing, no edema, no cyanosis, 2+ pulses and upper and lower extremities. MUSCULOSKELETAL: Muscle strength and tone normal. SKIN: No rashes CENTRAL NERVOUS SYSTEM: Alert and oriented -3. No gross focal deficit. PSYCHIATRIC: Normal mood affect and normal mental status examination - Labs CBC & Chem 7: 12/07/20 06:06 12/09/20 09:15 Labs: Abnormal Lab Results - Last 24 Hours (Table) 12/09/20 12/09/20 12/10/20 Range/Units 16:55 20:37 12:02 POC Glucose (mg/dL) 217 H 121 H 225 H (75-99) mg/dL Assessment and Plan Assessment: #1. Possible right upper lobe pneumonia with loculated pleural effusion, rule out possibility of empyema versus malignancy. Interventional radiology was unable to place right-sided pigtail chest tube or obtain pleural fluid for analysis related to small size of the pleural effusion. CT chest was negative for pulmonary embolism #2. Right-sided pleuritic chest pain secondary to right-sided pleural effusion #3. Recurrent pleuritic chest discomfort, patient had negative workup for pulmonary embolism, patient is on Xarelto, compliant, patient did have negative cardiac workup as well #4. Paroxysmal atrial fibrillation #5. Hypertension #6. History of MTHFR gene mutation #7. Type 2 diabetes mellitus #8. History of right-sided breast cancer with previous right sided mastectemy #9. History of splenectomy #10. History of bowel resection #11. History of IVC filter placement Recommendation: Oral prednisone. Oral antibiotics. Continue diuretics orally at home. Consider discharge planning today if cleared by the admitting physician. Time with Patient: Less than 30
== END 2020-12-10 14:25 | disposition home or self-care (01) | DRG 193 ==
LOC: EC 07:11 → 3SCARD 09:04
PROVIDERS: ADMIT Hospitalist; ATTEND Hospitalist
PROC: 0W9930Z Drainage of Right Pleural Cavity with Drainage Device, Percutaneous Approach (ICD-10-PCS; principal; 2020-12-04)
DX: J18.9 Pneumonia, unspecified organism (principal); J96.21 Acute and chronic respiratory failure with hypoxia; J44.0 Chronic obstructive pulmonary disease with (acute) lower respiratory infection; E72.12 Methylenetetrahydrofolate reductase deficiency; I48.19 Other persistent atrial fibrillation; J45.41 Moderate persistent asthma with (acute) exacerbation; Z20.822 Contact with and (suspected) exposure to COVID-19; J98.11 Atelectasis; D58.9 Hereditary hemolytic anemia, unspecified; J90 Pleural effusion, not elsewhere classified; I27.82 Chronic pulmonary embolism; E11.9 Type 2 diabetes mellitus without complications; E66.9 Obesity, unspecified; E78.5 Hyperlipidemia, unspecified; E87.6 Hypokalemia; F41.1 Generalized anxiety disorder; F41.8 Other specified anxiety disorders; I10 Essential (primary) hypertension; R26.9 Unspecified abnormalities of gait and mobility; F32.9 Major depressive disorder, single episode, unspecified; K43.9 Ventral hernia without obstruction or gangrene; I25.10 Atherosclerotic heart disease of native coronary artery without angina pectoris; I27.29 Other secondary pulmonary hypertension; J98.6 Disorders of diaphragm; Z68.33 Body mass index [BMI] 33.0-33.9, adult; Z79.01 Long term (current) use of anticoagulants; Z79.899 Other long term (current) drug therapy; Z85.3 Personal history of malignant neoplasm of breast; Z86.718 Personal history of other venous thrombosis and embolism; Z88.0 Allergy status to penicillin; Z90.11 Acquired absence of right breast and nipple; Z90.49 Acquired absence of other specified parts of digestive tract; Z90.710 Acquired absence of both cervix and uterus; Z90.81 Acquired absence of spleen; Z95.828 Presence of other vascular implants and grafts; Z99.81 Dependence on supplemental oxygen; Z87.19 Personal history of other diseases of the digestive system; Z87.01 Personal history of pneumonia (recurrent)
CPT/HCPCS: 36415; 71045; 71046; 71275; 76604; 77012; 80048; 80053; 81001; 83036; 83605; 83615; 83735; 84145; 84155; 84439; 84443; 84481; 84484; 85025; 85610; 85730; 87040; 87449; 87635; 93005; 94640; 94760; 96365; 99285; 99291

== ENCOUNTER 2021-09-26 12:35 | Emergency (ER) | payer MEDICARE, BC ==
[2021-09-26 12:59] VITALS: TEMP 98.2
[2021-09-26] MEDS ORDERED: MORPHINE SULFATE 4 MG/ML SYRINGE IV STA (13:17)
[2021-09-26] MEDS ORDERED: SODIUM CHLORIDE 0.9% 500 ML 500 ML IV STA (13:17)
[2021-09-26] MEDS ORDERED: ONDANSETRON 4 MG/2 ML VIAL IVP STA (13:17)
[2021-09-26 13:49] LABS: Basophils # (A) 0.1 k/uL (0-0.2); Basophils % (A) 1 %; Eosinophils # (A) 0.1 k/uL (0-0.7); Eosinophils % (A) 2 %; HCT 39.4 % (34.0-46.0); HGB 12.8 gm/dL (11.4-16.0); Hypochromasia Slight; Lymphocytes # (A) 2.2 k/uL (1.0-4.8); Lymphocytes % (A) 29 %; MCH 30.7 pg (25.0-35.0); MCHC 32.4 g/dL (31.0-37.0); MCV 94.6 fL (80.0-100.0); Mean Platelet Volume 9.3; Monocytes # (A) 0.3 k/uL (0-1.0); Monocytes % (A) 4 %; Neutrophils # (A) 4.9 k/uL (1.3-7.7); Neutrophils % (A) 64 %; Platelet Count 259 k/uL (150-450); RBC 4.16 m/uL (3.80-5.40); RDW 12.8 % (11.5-15.5); WBC 7.7 k/uL (3.8-10.6)
[2021-09-26 13:57] LABS: INR 1.3 (<1.2); Partial Thromboplastin Time 28.7 sec (22.0-30.0); Prothrombin Time 13.3 sec (9.0-12.0)
[2021-09-26 14:06] LABS: Calcium 9.6 mg/dL (8.4-10.2); Total Protein 6.9 g/dL (6.3-8.2)
[2021-09-26 14:14] LABS: Potassium 3.6 mmol/L (3.5-5.1)
--- NOTE | 2021-09-26 14:45 | ED ---
General Adult HPI - General Source: patient, RN notes reviewed, old records reviewed Mode of arrival: wheelchair Limitations: no limitations <Jone Kamara - Last Filed: 09/26/21 14:42> <Saurav Swenson - Last Filed: 09/26/21 16:40> - General Chief complaint: Abdominal Pain Stated complaint: Costipation/L side pain Time Seen by Provider: 09/26/21 13:02 - History of Present Illness Initial comments: Patient is an 81-year-old female with past medical history remarkable for atrial flutter fibrillation on blood thinners, COPD, diabetes, hypertension, multiple prior abdominal surgeries including resection who presents emergency Department complaining of decreased bowel movements. Does have a history of a small bowel obstruction and this is what she is concerned with. Last normal bowel movement was over 5 days ago. Has attempted enemas, stool softeners with some small amounts of loose stool but states she still feels constipated. Is complaining of generalized abdominal discomfort but primarily left lower quadrant abdominal pain. Denies any fevers or chills. Denies any upper abdominal pain. Denies any chest pain, shortness of breath. No nausea. No other acute complaint at this time. The vaginal discharge or bleeding. No urinary complaints. Presents for further evaluation at this time. Surgeon that performed prior abdominal surgeries is unknown, as it occurred many years ago.Patient also endorses bilateral hip pain following a fall from kneeling height multiple days ago. She is uncertain if this is related. (Jone Kamara) - Related Data Home Medications Medication Instructions Recorded Confirmed Atorvastatin Calcium [Lipitor] 10 mg PO AC-SUPPER 01/28/17 12/02/20 Gabapentin [Neurontin] 300 mg PO TID 01/28/17 12/02/20 Sertraline HCl [Zoloft] 150 mg PO DAILY 01/28/17 12/02/20 Brinzolamide/Brimonidine Tart 1 drop BOTH EYES BID 12/06/19 12/02/20 [Simbrinza 1%-0.2% Eye Drops] Rivaroxaban [Xarelto] 20 mg PO AC-SUPPER 12/06/19 12/02/20 Betaxolol HCl [Betaxolol HCl 0.5% 1 drop BOTH EYES DAILY 11/16/20 12/02/20 Oph Soln] Bimatoprost [Lumigan 0.01% Ophth 1 drop BOTH EYES HS 11/16/20 12/02/20 Soln] Losartan [Cozaar] 50 mg PO DAILY 11/16/20 12/02/20 clonazePAM [KlonoPIN] 1 mg PO BID 12/02/20 12/02/20 Previous Rx's Medication Instructions Recorded Chlorthalidone [Hygroton] 25 mg PO DAILY@1200 #0 11/21/20 polyethylene glycoL 3350 [Miralax] 17 gm PO DAILY 11/21/20 Diltiazem Oral [Cardizem*] 30 mg PO TID #90 tab 12/05/20 predniSONE 10 mg PO DAILY #30 tab 12/05/20 Albuterol Nebulized [Ventolin 2.5 mg INHALATION TID #90 ml 12/11/20 Nebulized] Allergies Allergy/AdvReac Type Severity Reaction Status Date / Time Penicillins Allergy Rash/Hives Verified 09/26/21 12:59 Review of Systems ROS Other: All systems not noted in ROS Statement are negative. <Jone Kamara - Last Filed: 09/26/21 14:42> ROS Other: All systems not noted in ROS Statement are negative. <Saurav Swenson - Last Filed: 09/26/21 16:40> ROS Statement: Those systems with pertinent positive or pertinent negative responses have been documented in the HPI. Review of Systems: CONST: Denies fever EYES: Denies blurry vision ENT: Denies nasal congestion C/V: Denies Chest pain RESP: Denies shortness of breath GI: Endorses abdominal pain : Denies dysuria SKIN: Denies rash. MSK: Denies joint pain. NEURO: Denies headache (Jone Kamara) Past Medical History Past Medical History: Atrial Fibrillation, Asthma, Cancer, COPD, Diabetes Mellitus, Deep Vein Thrombosis (DVT), Eye Disorder, GERD/Reflux, Hyperlipidemia, Hypertension, Pneumonia, Pulmonary Embolus (PE) Additional Past Medical History / Comment(s): Paroxysmal afib, pt had traumatic fall 08/2018 and had takoMTHFR gene mutation, PEs x3, DVTs R arm and bilateral legs, hemolytic anemia, pericardial effusion with pericardial window, NIDDM type II-diet controlled now, R breast cancer with mastectomy, bronchitis, bronchial asthma, home oxygen at 2L/NC ATC, diverticulitis with bowel resection, constipation, chronic abdominal hernia, hiatal hernia, bilateral glaucoma. History of Any Multi-Drug Resistant Organisms: None Reported Past Surgical History: Appendectomy, Breast Surgery, Hysterectomy Additional Past Surgical History / Comment(s): Lisle filter, pericardial window, cardiac caths, R mastectomy, colonoscopies/benign polypectomies, bowel resection for diverticulitis, spleenectomy d/t hemolytic anemia, abdominal hernia surgeries/mesh. Past Anesthesia/Blood Transfusion Reactions: No Reported Reaction Additional Past Anesthesia/Blood Transfusion Reaction / Comment(s): trouble coming out of anesthesia. hemolytic anemia. Past Psychological History: Anxiety, Depression Smoking Status: Never smoker Past Alcohol Use History: None Reported Past Drug Use History: None Reported - Past Family History Mother Family Medical History: Coronary Artery Disease (CAD), Myocardial Infarction (KS) Additional Family Medical History / Comment(s): Mother had rheumatic fever. She had her first KS in her late 30s and of a KS at the age of 53 yrs. Father History Unknown: Yes Family Medical History: No Reported History Additional Family Medical History / Comment(s): Father in a traumatic accident when pt was 6 yrs old. <Jone Kamara - Last Filed: 09/26/21 14:42> General Exam Limitations: no limitations <Jone Kamara - Last Filed: 09/26/21 14:42> - General Exam Comments Initial Comments: General: Appears in no acute distress. HEAD: Normal with no signs of head trauma. EYES: PERRLA, EOMI, conjunctiva normal, no discharge. ENT: Hearing grossly intact, normal oropharynx. RESPIRATORY: Clear breath sounds bilaterally. No wheezes, rales, or rhonchi. C/V: Regular rate and rhythm. S1 and S2 auscultated, no edema, peripheral pulses 2+ and intact throughout ABD: Abdomen is soft, nondistended. Tender to palpation in all 4 quadrant. No guarding. No rebound tenderness, no peritoneal signs. EXT: Normal range of motion, no obvious deformity.Pelvis is stable. Mild tenderness to palpation over the lateral aspects of each hip. Left is worse than right. No midline lumbar spine tenderness to palpation. SKIN: No rashes or lesions observed on exposed skin. NEURO: Alert and oriented x 4. Cranial nerves II-XII intact. No focal sensory or strength deficits. (Jone Kamara) Course Vital Signs 09/26/21 09/26/21 12:56 15:53 Temperature 98.2 F Pulse Rate 53 L 96 Respiratory 16 16 Rate Blood Pressure 108/54 155/44 O2 Sat by Pulse 95 96 Oximetry Medical Decision Making - Lab Data Result diagrams: 09/26/21 13:38 09/26/21 13:32 <Jone Kamara - Last Filed: 09/26/21 14:42> - Lab Data Result diagrams: 09/26/21 13:38 09/26/21 13:32 <Saurav Swenson - Last Filed: 09/26/21 16:40> - Medical Decision Making Based on the patient's presentation and physical exam, I'm concerned for acute abdominal process for this patient. She will require CT and we will obtain abdominal laboratory studies. She was in agreement with this plan. Patient also had a small fall and therefore we will obtain bilateral hip x-rays as well. Laboratory studies were remarkable for a slightly elevated carbon dioxide of 35 which is her baseline. She is on oxygen at home which she is currently and is not requiring any extra. Lactic acid is within normal limits. Remainder of labs are relatively unremarkable. At this time and is in a makeshift. X-rays as well as CT imaging are still pending. Patient will be signed out to oncoming physician Dr. Swenson for further care. (Jone Kamara) Patient is sent out to me by previous shift physician, Dr. Kamara. Patient is an 81-year-old female presents with abdominal symptoms for approximately 4 days. Patient has history of abdominal issues. Plan at sign out was to follow-up with pending CT imaging. Vital signs reviewed found to be within acceptable limits. Labs are also within acceptable limits. Computed tomography scan of the abdomen and pelvis shows no acute intra- abdominal processes. Patient was reevaluated at bedside for 40 p.m. Jacinta been stable medical condition. She is feeling anxious. Physical examination at the bedside does show palpatory tenderness along the left hip. She does not have any findings of occult fracture on her hip x-rays. She did report falling recently. Left hip is likely secondary to muscle contusion versus muscular strain. Patient's abdomen is soft. She does complain constipation. Treatment options were discussed she is agreeable to taking home small amounts of GoLYTELY to assist with constipation. Family at the bedside is agreeable with plan. Patient will be discharged. (Saurav Swenson) - Lab Data Lab Results 09/26/21 09/26/21 09/26/21 Range/Units 13:32 13:32 13:32 WBC (3.8-10.6) k/uL RBC (3.80-5.40) m/uL Hgb (11.4-16.0) gm/dL Hct (34.0-46.0) % MCV (80.0-100.0) fL MCH (25.0-35.0) pg MCHC (31.0-37.0) g/dL RDW (11.5-15.5) % Plt Count (150-450) k/uL MPV Neutrophils % % Lymphocytes % % Monocytes % % Eosinophils % % Basophils % % Neutrophils # (1.3-7.7) k/uL Lymphocytes # (1.0-4.8) k/uL Monocytes # (0-1.0) k/uL Eosinophils # (0-0.7) k/uL Basophils # (0-0.2) k/uL Hypochromasia PT 13.3 H (9.0-12.0) sec INR 1.3 H (<1.2) APTT 28.7 (22.0-30.0) sec Sodium 135 L (137-145) mmol/L Potassium 3.6 (3.5-5.1) mmol/L Chloride 97 L (98-107) mmol/L Carbon Dioxide 35 H (22-30) mmol/L Anion Gap 3 mmol/L BUN 21 H (7-17) mg/dL Creatinine 0.94 (0.52-1.04) mg/dL Est GFR (CKD-EPI)AfAm 66 (>60 ml/min/1.73 sqM) Est GFR (CKD-EPI)NonAf 58 (>60 ml/min/1.73 sqM) Glucose 108 H (74-99) mg/dL Plasma Lactic Acid Guillermo 1.1 (0.7-2.0) mmol/L Calcium 9.6 (8.4-10.2) mg/dL Total Bilirubin 1.0 (0.2-1.3) mg/dL AST 26 (14-36) U/L ALT 15 (4-34) U/L Alkaline Phosphatase 65 (38-126) U/L Total Protein 6.9 (6.3-8.2) g/dL Albumin 4.0 (3.5-5.0) g/dL Amylase 43 (30-110) U/L Lipase 41 (23-300) U/L Urine Color Urine Appearance (Clear) Urine pH (5.0-8.0) Ur Specific Brewster (1.001-1.035) Urine Protein (Negative) Urine Glucose (UA) (Negative) Urine Ketones (Negative) Urine Blood (Negative) Urine Nitrite (Negative) Urine Bilirubin (Negative) Urine Urobilinogen (<2.0) mg/dL Ur Leukocyte Esterase (Negative) 09/26/21 09/26/21 Range/Units 13:38 15:53 WBC 7.7 (3.8-10.6) k/uL RBC 4.16 (3.80-5.40) m/uL Hgb 12.8 (11.4-16.0) gm/dL Hct 39.4 (34.0-46.0) % MCV 94.6 (80.0-100.0) fL MCH 30.7 (25.0-35.0) pg MCHC 32.4 (31.0-37.0) g/dL RDW 12.8 (11.5-15.5) % Plt Count 259 (150-450) k/uL MPV 9.3 Neutrophils % 64 % Lymphocytes % 29 % Monocytes % 4 % Eosinophils % 2 % Basophils % 1 % Neutrophils # 4.9 (1.3-7.7) k/uL Lymphocytes # 2.2 (1.0-4.8) k/uL Monocytes # 0.3 (0-1.0) k/uL Eosinophils # 0.1 (0-0.7) k/uL Basophils # 0.1 (0-0.2) k/uL Hypochromasia Slight PT (9.0-12.0) sec INR (<1.2) APTT (22.0-30.0) sec Sodium (137-145) mmol/L Potassium (3.5-5.1) mmol/L Chloride (98-107) mmol/L Carbon Dioxide (22-30) mmol/L Anion Gap mmol/L BUN (7-17) mg/dL Creatinine (0.52-1.04) mg/dL Est GFR (CKD-EPI)AfAm (>60 ml/min/1.73 sqM) Est GFR (CKD-EPI)NonAf (>60 ml/min/1.73 sqM) Glucose (74-99) mg/dL Plasma Lactic Acid Guillermo (0.7-2.0) mmol/L Calcium (8.4-10.2) mg/dL Total Bilirubin (0.2-1.3) mg/dL AST (14-36) U/L ALT (4-34) U/L Alkaline Phosphatase (38-126) U/L Total Protein (6.3-8.2) g/dL Albumin (3.5-5.0) g/dL Amylase (30-110) U/L Lipase (23-300) U/L Urine Color Light Yellow Urine Appearance Clear (Clear) Urine pH 6.0 (5.0-8.0) Ur Specific Brewster 1.012 (1.001-1.035) Urine Protein Negative (Negative) Urine Glucose (UA) Negative (Negative) Urine Ketones Negative (Negative) Urine Blood Negative (Negative) Urine Nitrite Negative (Negative) Urine Bilirubin Negative (Negative) Urine Urobilinogen <2.0 (<2.0) mg/dL Ur Leukocyte Esterase Negative (Negative) Disposition <Jone Kamara - Last Filed: 09/26/21 14:42> Is patient prescribed a controlled substance at d/c from ED?: No Time of Disposition: 16:40 <Saurav Swenson - Last Filed: 09/26/21 16:40> Clinical Impression: Constipation, Hip strain Disposition: HOME SELF-CARE Condition: Fair Instructions (If sedation given, give patient instructions): Constipation (ED) Referrals: Rg Braba DO [Primary Care Provider] - 1-2 days
--- NOTE | 2021-09-26 15:34 | CT ---
EXAMINATION TYPE: CT abdomen pelvis w con CT DLP: 1328.7 mGycm, Automated exposure control for dose reduction was used. DATE OF EXAM: 09/26/2021 3:18 PM COMPARISON: CT abdomen pelvis most recent from 12/06/2019. CLINICAL INDICATION:Female, 81 years old with history of abdominal pain, acute, nonlocalized; abdomin al pain, constipation TECHNIQUE: Standard CT of the abdomen and pelvis following the administration of 80 cc of Isovue 30 0 IV contrast material. Coronal and sagittal reformats were performed. FINDINGS: LOWER CHEST: The pulmonary trunk is enlarged measuring up to 3.9 cm, previously 3.5 cm in 2020. Juliane l valve annular calcifications. There is an elevated right diaphragm. ABDOMEN LIVER: The liver is a heterogenous appearance GALLBLADDER AND BILE DUCTS: Gallbladder is surgically absent with mild intrahepatic and extra hepatic biliary dilatation likely physiologic and a postcholecystectomy change. No evidence of choledocholit hiasis. PANCREAS: Unremarkable. SPLEEN: Unremarkable. ADRENAL GLANDS: Unremarkable. KIDNEYS AND URETERS: No evidence of hydronephrosis or renal calculus. The ureters are unremarkable. Bilateral extrarenal pelves. Bilateral probable renal cysts. Right renal cyst measuring 1.6 cm PELVIS BLADDER: Unremarkable REPRODUCTIVE: Unremarkable. ABDOMEN & PELVIS STOMACH AND BOWEL: Scattered diverticula are noted throughout the colon. No evidence of bowel obstruc tion. There is a small stool burden throughout the colon. PERITONEUM: No evidence of pneumoperitoneum or free fluid. VASCULATURE: No evidence of aortic aneurysm. IVC filter in place. Scattered atherosclerosis of the ar terial vasculature. MUSCULOSKELETAL: No acute osseous abnormalities. Multilevel degenerative changes are seen throughout the spine. LYMPH NODES: No gross evidence for lymphadenopathy. SOFT TISSUE/ABDOMINAL WALL: Ventral wall hernia containing loops of small bowel. No evidence of bowel obstruction or evidence for bowel wall thickening to suggest angulation. This measures up to 3.1 cm at the neck IMPRESSION: 1. Findings suggestive of pulmonary hypertension with passive congestion of the liver. No additional finding within the abdomen or pelvis to explain the patient's abdominal pain. 2. Large ventral wall hernia containing loops of small bowel. 3. Small stool burden throughout the colon. 4. Colonic diverticulosis.
--- NOTE | 2021-09-26 15:34 | XR ---
EXAMINATION TYPE: XR chest 1V portable DATE OF EXAM: 09/26/2021 COMPARISON: Chest x-ray December 09, 2020 HISTORY: Recent fall injury with pain. TECHNIQUE: Single frontal view of the chest is obtained. FINDINGS: There are low lung volumes with focal right basilar linear scarring and/or atelectasis. Th ere is patchy left basilar opacity consistent with acute infiltrate and/or atelectasis. The cardiac silhouette size is stable and within normal limits. The osseous structures are demineralized. IMPRESSION: Lower lung volumes and chronic changes with persistent left basilar opacity. Recurrent a cute infiltrate at this level cannot be excluded.
--- NOTE | 2021-09-26 15:36 | XR ---
EXAMINATION TYPE: XR Hip Bilateral and AP pelvis DATE OF EXAM: 09/26/2021 COMPARISON: CT abdomen and pelvis same date. HISTORY: Fall injury with pain TECHNIQUE: A single AP view of the pelvis is obtained. Two views of the bilateral hips are obtained. FINDINGS: There is no acute fracture/dislocation evident in the pelvis. Moderate axial joint space l oss in both hips is present with mild acetabular spurring. Sacroiliac joints show some asymmetric mil d to moderate right-sided narrowing. Pubic symphysis is intact. Occasional scattered overlying pelvic phlebolith. Two views of bilateral hips show no acute fracture or dislocation. No suspicious focal lytic or scle rotic lesion seen in the proximal femurs bilaterally. The overlying soft tissue is unremarkable. IMPRESSION: There is no acute fracture or dislocation in the pelvis or either hip.
[2021-09-26 16:12] LABS: Appearance,Urine Clear (Clear); Bilirubin,Urine Negative (Negative); Blood,Urine Negative (Negative); Color,Urine Light Yellow; Glucose,Urine (UA) Negative (Negative); Ketones,Urine Negative (Negative); Leukocyte Esterase,Urine Negative (Negative); Nitrite,Urine Negative (Negative); Protein,Urine Negative (Negative); Specific Gravity,Urine 1.012 (1.001-1.035); Urobilinogen,Urine <2.0 mg/dL (<2.0)
[2021-09-26] MEDS ORDERED: LORazepam 2 MG/ML INJ IV STA (16:38)
[2021-09-26] MEDS ORDERED: LIDOCAINE 5% PATCH TOPICAL STA (16:38)
[2021-09-26] MEDS ORDERED: PEG 3350-NA SULF,BICARB,CL/KCL 4,000 ML BOTTLE PO ONE (16:45)
[2021-09-26 17:06] VITALS: BP 187/89; PULSE 56; RESP 18
== END 2021-09-26 17:14 | disposition home or self-care (01) ==
LOC: EC 12:35
DX: S39.012A Strain of muscle, fascia and tendon of lower back, initial encounter (principal); K59.00 Constipation, unspecified; J44.9 Chronic obstructive pulmonary disease, unspecified; E11.9 Type 2 diabetes mellitus without complications; K21.9 Gastro-esophageal reflux disease without esophagitis; E78.5 Hyperlipidemia, unspecified; I10 Essential (primary) hypertension; Z88.0 Allergy status to penicillin; X58.XXXA Exposure to other specified factors, initial encounter
CPT/HCPCS: 36415; 80053; 82150; 83605; 83690; 85025; 85610; 85730; 81003; 73521; 71045; 74177; 96374; 96361; 96375; 99284; J2060; J2270; J2405; Q9967

== ENCOUNTER 2021-11-27 12:12 | Emergency (ER) | payer MEDICARE, BC ==
[2021-11-27 12:39] VITALS: BP 142/55; PULSE 50; RESP 22; TEMP 98.3
--- NOTE | 2021-11-27 20:17 | ED ---
General Adult HPI - General Chief complaint: Shortness of Breath Stated complaint: COVID+, SOB Time Seen by Provider: 11/27/21 19:46 Source: patient, RN notes reviewed Mode of arrival: ambulatory Limitations: no limitations - History of Present Illness Initial comments: This is an 81 year old female who presents to the Emergency Department from home with complaints of worsening shortness of breath with activity. Patient states she tested positive for COVID on 11-22-21 and was prescribed Paxlovid which she took as directed (last dose taken today). States she does wear oxygen at home at 2L with a typical pulse ox of 94%-96%. States she has a history of COPD and a partially paralyzed diaphragm which makes it difficult for her to cough and predisposed to pneumonia. Also states she has history of A.Fib and pulmonary emboli so takes Xarelto daily. Reports a normal heart rate of 42-55 bpm. Denies fever, chills, headache, dizziness, chest pain, abdominal pain, nausea, vomiting, diarrhea, dysuria, and lower extremity edema. - Related Data Home Medications Medication Instructions Recorded Confirmed Atorvastatin Calcium [Lipitor] 10 mg PO AC-SUPPER 01/28/17 12/02/20 Gabapentin [Neurontin] 300 mg PO TID 01/28/17 12/02/20 Sertraline HCl [Zoloft] 150 mg PO DAILY 01/28/17 12/02/20 Brinzolamide/Brimonidine Tart 1 drop BOTH EYES BID 12/06/19 12/02/20 [Simbrinza 1%-0.2% Eye Drops] Rivaroxaban [Xarelto] 20 mg PO AC-SUPPER 12/06/19 12/02/20 Betaxolol HCl [Betaxolol HCl 0.5% 1 drop BOTH EYES DAILY 11/16/20 12/02/20 Ophth Soln] Bimatoprost [Lumigan 0.01% Ophth 1 drop BOTH EYES HS 11/16/20 12/02/20 Soln] Losartan [Cozaar] 50 mg PO DAILY 11/16/20 12/02/20 clonazePAM [KlonoPIN] 1 mg PO BID 12/02/20 12/02/20 Previous Rx's Medication Instructions Recorded Chlorthalidone [Hygroton] 25 mg PO DAILY@1200 #0 11/21/20 polyethylene glycoL 3350 [Miralax] 17 gm PO DAILY 11/21/20 Diltiazem Oral [Cardizem*] 30 mg PO TID #90 tab 12/05/20 predniSONE 10 mg PO DAILY #30 tab 12/05/20 Albuterol Nebulized [Ventolin 2.5 mg INHALATION TID #90 ml 12/11/20 Nebulized] dexAMETHasone [Decadron] 6 mg PO DAILY #10 tablet 11/28/21 Allergies Allergy/AdvReac Type Severity Reaction Status Date / Time Penicillins Allergy Rash/Hives Verified 11/27/21 12:39 Review of Systems ROS Statement: Those systems with pertinent positive or pertinent negative responses have been documented in the HPI. ROS Other: All systems not noted in ROS Statement are negative. 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 History of Any Multi-Drug Resistant Organisms: None Reported Past Surgical History: Appendectomy, Breast Surgery, Hysterectomy Additional Past Surgical History / Comment(s): Ross filter, pericardial window, cardiac caths, R mastectomy, colonoscopies/benign polypectomies, bowel resection for diverticulitis, spleenectomy d/t hemolytic anemia, abdominal hernia surgeries/mesh. Past Anesthesia/Blood Transfusion Reactions: No Reported Reaction Additional Past Anesthesia/Blood Transfusion Reaction / Comment(s): trouble coming out of anesthesia. hemolytic anemia. Past Psychological History: Anxiety, Depression Smoking Status: Never smoker Past Alcohol Use History: None Reported Past Drug Use History: None Reported - Past Family History Mother Family Medical History: Coronary Artery Disease (CAD), Myocardial Infarction (PR) Additional Family Medical History / Comment(s): Mother had rheumatic fever. She had her first PR in her late 30s and of a PR at the age of 53 yrs. Father History Unknown: Yes Family Medical History: No Reported History Additional Family Medical History / Comment(s): Father in a traumatic accident when pt was 6 yrs old. General Exam Limitations: no limitations (Well-developed, well-nourished female in no acute distress. ) General appearance: alert, in no apparent distress ENT exam: Present: normal exam, normal oropharynx, mucous membranes moist Neck exam: Present: normal inspection, full ROM. Absent: tenderness, meningismus, lymphadenopathy Respiratory exam: Present: normal lung sounds bilaterally, other (wearing oxygen via NC at 2L per home regimen). Absent: respiratory distress, wheezes, rales, rhonchi, stridor, chest wall tenderness Cardiovascular Exam: Present: normal rhythm, bradycardia, normal heart sounds GI/Abdominal exam: Present: soft, normal bowel sounds. Absent: distended, tenderness, guarding, rebound, rigid Extremities exam: Present: normal inspection, full ROM, normal capillary refill. Absent: pedal edema Back exam: Present: normal inspection. Absent: CVA tenderness (R), CVA tenderness (L) Neurological exam: Present: alert, oriented X3, CN II-XII intact Psychiatric exam: Present: normal affect, normal mood Skin exam: Present: warm, dry, intact, normal color. Absent: rash Course Vital Signs 11/27/21 12:36 Temperature 98.3 F Pulse Rate 50 L Respiratory 22 Rate Blood Pressure 142/55 O2 Sat by Pulse 93 L Oximetry - Reevaluation(s) Reevaluation #1: 11/28/21 02:00 Discussed admission for observation versus discharge home at length with patient and daughter. Discussed pros and cons and explored patient's concerns at length. Shared decision making with patient and daughter- she will be discharged home with strict return parameters and close follow up. Medical Decision Making - Medical Decision Making This is an 81-year-old female with multiple comorbidities including home oxygen dependency who is COVID positve presenting to the emergency department with shortness of breath. Upon exam, patient is well appearing and in no acute distress. Lungs sounds are clear to auscultation. Patient is wearing oxygen at 2 L via nasal cannula with pulse ox 94%. She is bradycardic which is normal for her; no chest pain or palpitations. Laboratory studies were obtained showing no significant change from her baseline. Her COVID test is positive. Troponin is slightly elevated, though this appears consistent when compared with her previous visits. EKG shows nonspecific ST and T-wave changes. Patient is not experiencing any chest pain or palpitations therefore this is likely reactive given her ongoing infection. Chest x-ray does show diminished lung volume which is expected given patient's mildly impaired diaphragm. Patient has been up to the bathroom several times without significant increase in shortness of breath. We discussed inpatient hospitalization versus discharge home and patient prefers to go home. Strict return parameters were discussed in detail. Encouraged to follow-up with her family doctor via telephone or video visit. Decadron prescribed. Reiterated the importance of use of inhaler or nebulizer. Patient and daughter verbalized understanding and agreed with this plan. Attending: Nichole. - Lab Data Result diagrams: 11/27/21 19:47 11/27/21 19:47 Lab Results 11/27/21 11/27/21 11/27/21 Range/Units 19:47 19:47 19:47 WBC 7.3 (3.8-10.6) k/uL RBC 4.74 (3.80-5.40) m/uL Hgb 13.9 (11.4-16.0) gm/dL Hct 45.6 (34.0-46.0) % MCV 96.2 (80.0-100.0) fL MCH 29.3 (25.0-35.0) pg MCHC 30.4 L (31.0-37.0) g/dL RDW 13.1 (11.5-15.5) % Plt Count 233 (150-450) k/uL MPV 10.3 Neutrophils % 44 % Lymphocytes % 46 % Monocytes % 4 % Eosinophils % 2 % Basophils % 1 % Neutrophils # 3.2 (1.3-7.7) k/uL Lymphocytes # 3.3 (1.0-4.8) k/uL Monocytes # 0.3 (0-1.0) k/uL Eosinophils # 0.2 (0-0.7) k/uL Basophils # 0.1 (0-0.2) k/uL Hypochromasia Moderate PT 13.7 H (9.0-12.0) sec INR 1.3 H (<1.2) APTT 32.1 H (22.0-30.0) sec D-Dimer <0.17 (<0.60) mg/L FEU Sodium (137-145) mmol/L Potassium (3.5-5.1) mmol/L Chloride (98-107) mmol/L Carbon Dioxide (22-30) mmol/L Anion Gap mmol/L BUN (7-17) mg/dL Creatinine (0.52-1.04) mg/dL Est GFR (CKD-EPI)AfAm (>60 ml/min/1.73 sqM) Est GFR (CKD-EPI)NonAf (>60 ml/min/1.73 sqM) Glucose (74-99) mg/dL Plasma Lactic Acid Guillermo (0.7-2.0) mmol/L Calcium (8.4-10.2) mg/dL Magnesium (1.6-2.3) mg/dL Total Bilirubin (0.2-1.3) mg/dL AST (14-36) U/L ALT (4-34) U/L Alkaline Phosphatase (38-126) U/L Troponin I 0.046 H* (0.000-0.034) ng/mL C-Reactive Protein (<1.0) mg/dL Total Protein (6.3-8.2) g/dL Albumin (3.5-5.0) g/dL Procalcitonin (0.02-0.09) ng/mL Coronavirus (PCR) (Not Detectd) 11/27/21 11/27/21 11/27/21 Range/Units 19:47 19:47 20:31 WBC (3.8-10.6) k/uL RBC (3.80-5.40) m/uL Hgb (11.4-16.0) gm/dL Hct (34.0-46.0) % MCV (80.0-100.0) fL MCH (25.0-35.0) pg MCHC (31.0-37.0) g/dL RDW (11.5-15.5) % Plt Count (150-450) k/uL MPV Neutrophils % % Lymphocytes % % Monocytes % % Eosinophils % % Basophils % % Neutrophils # (1.3-7.7) k/uL Lymphocytes # (1.0-4.8) k/uL Monocytes # (0-1.0) k/uL Eosinophils # (0-0.7) k/uL Basophils # (0-0.2) k/uL Hypochromasia PT (9.0-12.0) sec INR (<1.2) APTT (22.0-30.0) sec D-Dimer (<0.60) mg/L FEU Sodium 139 (137-145) mmol/L Potassium 3.4 L (3.5-5.1) mmol/L Chloride 92 L (98-107) mmol/L Carbon Dioxide 34 H (22-30) mmol/L Anion Gap 13 mmol/L BUN 31 H (7-17) mg/dL Creatinine 0.87 (0.52-1.04) mg/dL Est GFR (CKD-EPI)AfAm 73 (>60 ml/min/1.73 sqM) Est GFR (CKD-EPI)NonAf 63 (>60 ml/min/1.73 sqM) Glucose 94 (74-99) mg/dL Plasma Lactic Acid Guillermo 1.1 (0.7-2.0) mmol/L Calcium 10.0 (8.4-10.2) mg/dL Magnesium 1.6 (1.6-2.3) mg/dL Total Bilirubin 0.6 (0.2-1.3) mg/dL AST 31 (14-36) U/L ALT 17 (4-34) U/L Alkaline Phosphatase 63 (38-126) U/L Troponin I (0.000-0.034) ng/mL C-Reactive Protein 0.6 (<1.0) mg/dL Total Protein 6.9 (6.3-8.2) g/dL Albumin 4.2 (3.5-5.0) g/dL Procalcitonin (0.02-0.09) ng/mL Coronavirus (PCR) Detected A (Not Detectd) 11/27/21 Range/Units 21:10 WBC (3.8-10.6) k/uL RBC (3.80-5.40) m/uL Hgb (11.4-16.0) gm/dL Hct (34.0-46.0) % MCV (80.0-100.0) fL MCH (25.0-35.0) pg MCHC (31.0-37.0) g/dL RDW (11.5-15.5) % Plt Count (150-450) k/uL MPV Neutrophils % % Lymphocytes % % Monocytes % % Eosinophils % % Basophils % % Neutrophils # (1.3-7.7) k/uL Lymphocytes # (1.0-4.8) k/uL Monocytes # (0-1.0) k/uL Eosinophils # (0-0.7) k/uL Basophils # (0-0.2) k/uL Hypochromasia PT (9.0-12.0) sec INR (<1.2) APTT (22.0-30.0) sec D-Dimer (<0.60) mg/L FEU Sodium (137-145) mmol/L Potassium (3.5-5.1) mmol/L Chloride (98-107) mmol/L Carbon Dioxide (22-30) mmol/L Anion Gap mmol/L BUN (7-17) mg/dL Creatinine (0.52-1.04) mg/dL Est GFR (CKD-EPI)AfAm (>60 ml/min/1.73 sqM) Est GFR (CKD-EPI)NonAf (>60 ml/min/1.73 sqM) Glucose (74-99) mg/dL Plasma Lactic Acid Guillermo (0.7-2.0) mmol/L Calcium (8.4-10.2) mg/dL Magnesium (1.6-2.3) mg/dL Total Bilirubin (0.2-1.3) mg/dL AST (14-36) U/L ALT (4-34) U/L Alkaline Phosphatase (38-126) U/L Troponin I (0.000-0.034) ng/mL C-Reactive Protein (<1.0) mg/dL Total Protein (6.3-8.2) g/dL Albumin (3.5-5.0) g/dL Procalcitonin 0.03 (0.02-0.09) ng/mL Coronavirus (PCR) (Not Detectd) - EKG Data EKG shows normal: sinus rhythm Rate: bradycardia EKG Comments: EKG obtained at 2132 shows sinus bradycardia with nonspecific ST and T-wave abnormality. Ventricular rate 45, GA interval 206, QRS duration 101, QT/QTC 387/341. Interpretation borderline ECG. - Radiology Data Radiology results: report reviewed, image reviewed Two-view chest x-ray was obtained. Report was reviewed in its entirety. Impression per Dr. Johnson is diminished lung volumes. Subsegmental changes posteriorly on the lower lobes on the lateral projection is suggested at the left lung base on the frontal projection. Differential consideration includes subsegmental atelectasis or infection. No other definite focal airspace consolidation. No pleural effusion or pneumothorax. Disposition Clinical Impression: Shortness of breath, COVID-19 Disposition: HOME SELF-CARE Condition: Stable Instructions (If sedation given, give patient instructions): Coronavirus Disease 2019 (COVID-19) Additional Instructions: Use your albuterol inhaler every 4-6 hours while awake. You are being prescribed Decadron which is a steroid. Continue your home medication regimen as prescribed Keep all scheduled follow-up appointments. Do not hesitate to return to the emergency department with any worsening shortness of breath, chest pain, or difficulty breathing Prescriptions: dexAMETHasone [Decadron] 6 mg PO DAILY #10 tablet Is patient prescribed a controlled substance at d/c from ED?: No Referrals: Rg Barba DO [Primary Care Provider] - 1-2 days Time of Disposition: 02:23
[2021-11-27 20:42] LABS: INR 1.3 (<1.2); Partial Thromboplastin Time 32.1 sec (22.0-30.0); Prothrombin Time 13.7 sec (9.0-12.0)
[2021-11-27 20:46] LABS: Basophils # (A) 0.1 k/uL (0-0.2); Basophils % (A) 1 %; Eosinophils # (A) 0.2 k/uL (0-0.7); Eosinophils % (A) 2 %; HCT 45.6 % (34.0-46.0); HGB 13.9 gm/dL (11.4-16.0); Hypochromasia Moderate; Lymphocytes # (A) 3.3 k/uL (1.0-4.8); Lymphocytes % (A) 46 %; MCH 29.3 pg (25.0-35.0); MCHC 30.4 g/dL (31.0-37.0); MCV 96.2 fL (80.0-100.0); Mean Platelet Volume 10.3; Monocytes # (A) 0.3 k/uL (0-1.0); Monocytes % (A) 4 %; Neutrophils # (A) 3.2 k/uL (1.3-7.7); Neutrophils % (A) 44 %; Platelet Count 233 k/uL (150-450); RBC 4.74 m/uL (3.80-5.40); RDW 13.1 % (11.5-15.5); WBC 7.3 k/uL (3.8-10.6)
[2021-11-27 23:16] LABS: Albumin 4.2 g/dL (3.5-5.0); C Reactive Protein 0.6 mg/dL (<1.0); Magnesium 1.6 mg/dL (1.6-2.3); Potassium 3.4 mmol/L (3.5-5.1); Total Bilirubin 0.6 mg/dL (0.2-1.3); Total Protein 6.9 g/dL (6.3-8.2)
--- NOTE | 2021-11-28 01:23 | XR ---
EXAM: XR Chest, 2 Views CLINICAL HISTORY: covid SOB TECHNIQUE: Frontal and lateral views of the chest. COMPARISON: No relevant prior studies available. FINDINGS: Lungs: Diminished lung volumes. Subsegmental changes posteriorly in the lower lobes on the lateral projection is suggested at the left lung base on the frontal projection. No other definite focal airspace consolidation. The pulmonary vasculature is unremarkable. Pleural space: Unremarkable. No pneumothorax. No large pleural effusion. Heart: Unremarkable. No cardiomegaly. Mediastinum: No significant abnormality, accounting for limitations with poor inspiratory effort. The trachea is midline. Bones/joints: Unremarkable. IMPRESSION: Diminished lung volumes. Subsegmental changes posteriorly in the lower lobes on the lateral projection is suggested at the left lung base on the frontal projection. Differential consideration includes subsegmental atelectasis or infection. No other definite focal airspace consolidation. No pleural effusion or pneumothorax.
== END 2021-11-28 02:41 | disposition home or self-care (01) ==
LOC: EC 12:12
DX: U07.1 COVID-19 (principal); J44.9 Chronic obstructive pulmonary disease, unspecified; K21.9 Gastro-esophageal reflux disease without esophagitis; E11.9 Type 2 diabetes mellitus without complications; E78.5 Hyperlipidemia, unspecified; I10 Essential (primary) hypertension; Z79.83 Long term (current) use of bisphosphonates; Z88.0 Allergy status to penicillin
CPT/HCPCS: 36415; 71046; 80053; 83605; 83735; 84145; 84484; 85025; 85379; 85610; 85730; 86140; 87635; 93005; 99285

== ENCOUNTER 2022-03-01 00:04 | Inpatient (IN) | payer MEDICARE, BC ==
[2022-03-01] MEDS ORDERED: MORPHINE SULFATE 2 MG/ML SYRINGE IVP STA (00:18)
[2022-03-01] MEDS ORDERED: ONDANSETRON 4 MG/2 ML VIAL IVP STA ×2 (00:18→03:33)
[2022-03-01] MEDS ORDERED: SODIUM CHLORIDE 0.9% 1,000 ML IV STA (00:18)
[2022-03-01] MEDS ORDERED: PANTOPRAZOLE 40 MG/10 ML VIAL IVP STA (00:18)
--- NOTE | 2022-03-01 00:35 | ED ---
Abdominal Pain HPI - General Source: patient, family, RN notes reviewed Mode of arrival: EMS - History of Present Illness MD Complaint: abdominal pain Location: periumbilical, LLQ, RLQ Associated Symptoms: nausea, vomiting, constipation <Lucrecia Mohr - Last Filed: 03/01/22 04:31> <KamronCathy Joshua - Last Filed: 03/12/22 01:15> - General Chief Complaint: Abdominal Pain Stated Complaint: Abd Pain Time Seen by Provider: 03/01/22 00:05 - History of Present Illness Initial Comments: This is an 81-year-old female who presents to the emergency department for abdominal pain. States that around 6 PM last night, she started to develop pain in the mid to lower abdomen. States that she was eating spaghetti, and the pain became severe almost immediately afterwards. She feels like for the last couple of weeks she has also been constipated. She has a history of diverticulitis, but states that the pain is worse this time. Due to her recurrent episodes of diverticulitis, she subsequently required a partial colon resection many years ago. She feels like she has to vomit, but has only been dry heaving. Denies any fevers, chills, sore throat, cough, dyspnea, chest pain, palpitations, diarrhea, back pain, or headaches. (Lucrecia Mohr) - Related Data Home Medications Medication Instructions Recorded Confirmed Atorvastatin Calcium [Lipitor] 10 mg PO AC-SUPPER 01/28/17 03/07/22 Gabapentin [Neurontin] 300 mg PO BID 01/28/17 03/07/22 Sertraline HCl [Zoloft] 150 mg PO DAILY 01/28/17 03/07/22 Brinzolamide/Brimonidine Tart 1 drop BOTH EYES BID 12/06/19 03/07/22 [Simbrinza 1%-0.2% Eye Drops] Rivaroxaban [Xarelto] 20 mg PO AC-SUPPER 12/06/19 03/07/22 Betaxolol HCl [Betaxolol HCl 0.5% 1 drop BOTH EYES DAILY 11/16/20 03/07/22 Ophth Soln] Bimatoprost [Lumigan 0.01% Ophth 1 drop BOTH EYES HS 11/16/20 03/07/22 Soln] Losartan [Cozaar] 50 mg PO DAILY 11/16/20 03/07/22 clonazePAM [KlonoPIN] 1 mg PO BID 12/02/20 03/07/22 Albuterol Inhaler [Ventolin Hfa 2 puff INHALATION RT-QID PRN 03/01/22 03/07/22 Inhaler] Chlorthalidone [Hygroton] 25 mg PO DAILY 03/01/22 03/07/22 Previous Rx's Medication Instructions Recorded Diltiazem Oral [Cardizem*] 30 mg PO TID #90 tab 12/05/20 Allergies Allergy/AdvReac Type Severity Reaction Status Date / Time Penicillins Allergy Rash/Hives Verified 03/01/22 08:13 Review of Systems ROS Other: All systems not noted in ROS Statement are negative. <Lucrecia Mohr - Last Filed: 03/01/22 04:31> ROS Other: All systems not noted in ROS Statement are negative. <Cathy Lundy - Last Filed: 03/12/22 01:15> ROS Statement: Those systems with pertinent positive or pertinent negative responses have been documented in the HPI. 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 History of Any Multi-Drug Resistant Organisms: None Reported Past Surgical History: Appendectomy, Breast Surgery, Hysterectomy Additional Past Surgical History / Comment(s): Ross filter, pericardial window, cardiac caths, R mastectomy, colonoscopies/benign polypectomies, bowel resection for diverticulitis, spleenectomy d/t hemolytic anemia, abdominal hernia surgeries/mesh. Past Anesthesia/Blood Transfusion Reactions: No Reported Reaction Additional Past Anesthesia/Blood Transfusion Reaction / Comment(s): trouble coming out of anesthesia. hemolytic anemia. Past Psychological History: Anxiety, Depression Smoking Status: Never smoker Past Alcohol Use History: None Reported Past Drug Use History: None Reported - Past Family History Mother Family Medical History: Coronary Artery Disease (CAD), Myocardial Infarction (AZ) Additional Family Medical History / Comment(s): Mother had rheumatic fever. She had her first AZ in her late 30s and of a AZ at the age of 53 yrs. Father History Unknown: Yes Family Medical History: No Reported History Additional Family Medical History / Comment(s): Father in a traumatic accident when pt was 6 yrs old. <Lucrecia Mohr - Last Filed: 03/01/22 04:31> General Exam General appearance: alert, in distress Head exam: Present: atraumatic, normocephalic, normal inspection Respiratory exam: Present: normal lung sounds bilaterally. Absent: respiratory distress, wheezes, rales, rhonchi, stridor Cardiovascular Exam: Present: regular rate, normal rhythm, normal heart sounds. Absent: systolic murmur, diastolic murmur, rubs, gallop, clicks GI/Abdominal exam: Present: soft, tenderness (diffuse), guarding, hypoactive bowel sounds. Absent: distended Neurological exam: Present: alert, oriented X3, CN II-XII intact Psychiatric exam: Present: normal affect, normal mood Skin exam: Present: warm, dry, intact, normal color. Absent: rash <Lucrecia Mohr - Last Filed: 03/01/22 04:31> Course Vital Signs 03/01/22 03/01/22 03/01/22 00:16 00:19 03:24 Temperature 97.8 F Pulse Rate 59 L 62 Respiratory 22 18 Rate Blood Pressure 178/69 191/95 O2 Sat by Pulse 95 96 Oximetry 03/01/22 03/01/22 03/01/22 07:47 11:02 16:00 Temperature Pulse Rate 64 69 68 Respiratory 18 15 15 Rate Blood Pressure 198/76 197/80 198/93 O2 Sat by Pulse 96 96 97 Oximetry 03/01/22 18:22 Temperature Pulse Rate 65 Respiratory 17 Rate Blood Pressure 188/88 O2 Sat by Pulse 97 Oximetry Medical Decision Making - Lab Data Result diagrams: 03/01/22 00:28 03/01/22 00:28 - Radiology Data Radiology results: report reviewed, image reviewed <Lucrecia Mohr - Last Filed: 03/01/22 04:31> - Lab Data Result diagrams: 03/07/22 06:03 03/07/22 06:03 <Guy Lundyah Joshua - Last Filed: 03/12/22 01:15> - Medical Decision Making This is an 81-year-old female who presents to the emergency department for abdominal pain. Lab work reveals leukocytosis and an elevated troponin. When compared to prior values, she does have a history of elevated troponins in the past. Her EKG reveals no acute ST elevations or depressions. Patient also denies any chest pain or shortness of breath. Computed tomography scan of the abdomen and pelvis obtained, on my interpretation there are multiple dilated small bowel loops suggestive of an obstruction. Radiology notes that this is most likely a partial mechanical obstruction. Due to the leukocytosis, patient was started on IV antibiotics with Flagyl and cefepime with blood cultures obtained prior. Patient will be admitted to medicine with general surgery consult for partial small bowel obstruction. Patient placed on NPO status for the mean time. This case was discussed in detail with the attending ED physician. Presentation, findings, and treatment plan discussed in detail as well. (Lucrecia Mohr) - Lab Data Lab Results 03/01/22 03/01/22 03/01/22 Range/Units 00:28 00:28 00:28 WBC 18.0 H (3.8-10.6) k/uL RBC 4.47 (3.80-5.40) m/uL Hgb 13.5 (11.4-16.0) gm/dL Hct 42.6 (34.0-46.0) % MCV 95.4 (80.0-100.0) fL MCH 30.2 (25.0-35.0) pg MCHC 31.7 (31.0-37.0) g/dL RDW 13.5 (11.5-15.5) % Plt Count 280 (150-450) k/uL MPV 12.3 Neutrophils % 78 % Lymphocytes % 16 % Monocytes % 5 % Eosinophils % 1 % Basophils % 0 % Neutrophils # 14.1 H (1.3-7.7) k/uL Lymphocytes # 2.8 (1.0-4.8) k/uL Monocytes # 0.8 (0-1.0) k/uL Eosinophils # 0.2 (0-0.7) k/uL Basophils # 0.1 (0-0.2) k/uL Hypochromasia Marked Sodium 144 (137-145) mmol/L Potassium 3.6 (3.5-5.1) mmol/L Chloride 101 (98-107) mmol/L Carbon Dioxide 36 H (22-30) mmol/L Anion Gap 7 mmol/L BUN 14 (7-17) mg/dL Creatinine 0.86 (0.52-1.04) mg/dL Est GFR (CKD-EPI)AfAm 74 (>60 ml/min/1.73 sqM) Est GFR (CKD-EPI)NonAf 65 (>60 ml/min/1.73 sqM) Glucose 159 H (74-99) mg/dL Plasma Lactic Acid Guillermo 0.9 (0.7-2.0) mmol/L Calcium 10.8 H (8.4-10.2) mg/dL Total Bilirubin 0.7 (0.2-1.3) mg/dL AST 21 (14-36) U/L ALT 16 (4-34) U/L Alkaline Phosphatase 74 (38-126) U/L Troponin I (0.000-0.034) ng/mL Total Protein 6.9 (6.3-8.2) g/dL Albumin 4.1 (3.5-5.0) g/dL Amylase 51 (30-110) U/L Lipase 33 (23-300) U/L 03/01/22 Range/Units 00:28 WBC (3.8-10.6) k/uL RBC (3.80-5.40) m/uL Hgb (11.4-16.0) gm/dL Hct (34.0-46.0) % MCV (80.0-100.0) fL MCH (25.0-35.0) pg MCHC (31.0-37.0) g/dL RDW (11.5-15.5) % Plt Count (150-450) k/uL MPV Neutrophils % % Lymphocytes % % Monocytes % % Eosinophils % % Basophils % % Neutrophils # (1.3-7.7) k/uL Lymphocytes # (1.0-4.8) k/uL Monocytes # (0-1.0) k/uL Eosinophils # (0-0.7) k/uL Basophils # (0-0.2) k/uL Hypochromasia Sodium (137-145) mmol/L Potassium (3.5-5.1) mmol/L Chloride (98-107) mmol/L Carbon Dioxide (22-30) mmol/L Anion Gap mmol/L BUN (7-17) mg/dL Creatinine (0.52-1.04) mg/dL Est GFR (CKD-EPI)AfAm (>60 ml/min/1.73 sqM) Est GFR (CKD-EPI)NonAf (>60 ml/min/1.73 sqM) Glucose (74-99) mg/dL Plasma Lactic Acid Giullermo (0.7-2.0) mmol/L Calcium (8.4-10.2) mg/dL Total Bilirubin (0.2-1.3) mg/dL AST (14-36) U/L ALT (4-34) U/L Alkaline Phosphatase (38-126) U/L Troponin I 0.066 H* (0.000-0.034) ng/mL Total Protein (6.3-8.2) g/dL Albumin (3.5-5.0) g/dL Amylase (30-110) U/L Lipase (23-300) U/L - EKG Data EKG Comments: Sinus rhythm. Normal axis. Ventricular rate 69 beats per minute, MN interval 188 ms, QRS duration 98 ms, QTC 447 ms. EKG interpreted by myself and ED attending. (Lucrecia Mohr) Disposition <Lucrecia Mohr - Last Filed: 03/01/22 04:31> <Cathy Lundy - Last Filed: 03/12/22 01:15> Clinical Impression: SBO (small bowel obstruction), Leukocytosis Disposition: ADMITTED IP TO THIS HOSP
[2022-03-01 01:09] LABS: Albumin 4.1 g/dL (3.5-5.0); Calcium 10.8 mg/dL (8.4-10.2); Potassium 3.6 mmol/L (3.5-5.1); Total Bilirubin 0.7 mg/dL (0.2-1.3); Total Protein 6.9 g/dL (6.3-8.2)
--- NOTE | 2022-03-01 01:18 | CT ---
EXAMINATION TYPE: CT abdomen pelvis wo con DATE OF EXAM: 03/01/2022 COMPARISON: 09/26/2021 HISTORY: ABD PAIN W/ N/V. UNABLE TO HAVE BM. CT DLP: 785.4 mGycm Automated exposure control for dose reduction was used. There is bilateral lower lobe pulmonary airspace infiltrates and atelectasis. Heart is enlarged. Stom ach is large. Spleen appears absent. There is no discrete liver mass. No evidence of pancreatic mass. The bowel is nondilated. There is no adrenal mass. Kidneys of normal size. No hydronephrosis. There is 2 cm cortical cyst post erior right kidney. Ureters are not dilated. There is inferior vena cava filter. No retroperitoneal a denopathy. There are numerous dilated air and fluid-filled small bowel loops in the mid abdomen. The distal small bowel is not dilated. There are some sigmoid diverticula. There is large lower abdominal broad-based ventral hernia containing multiple loops of bowel. Small bowel transition point not seen. Small bowel dilated up to 3.4 cm. No free air. No definite asc ites fluid. The lumbar spine is intact. No compression fracture. Bony pelvis is intact. The hip joint s are intact. Appendix upper limit of normal size with no sign of any inflammatory changes around the appendix. IMPRESSION: Dilated small bowel with fluid levels and consistent with partial mechanical small bowel obstruction and appears new compared to old exam. Infiltrate and atelectasis at both lung bases which is increased slightly compared to old exam Broad-based lower abdominal ventral hernia. Hernia unchanged
[2022-03-01] MEDS ORDERED: HYDROmorphone 0.5 MG/0.5 ML SYRINGE IVP STA ×2 (01:22→03:33)
[2022-03-01 01:56] LABS: Basophils # (A) 0.1 k/uL (0-0.2); Basophils % (A) 0 %; Eosinophils # (A) 0.2 k/uL (0-0.7); Eosinophils % (A) 1 %; HCT 42.6 % (34.0-46.0); HGB 13.5 gm/dL (11.4-16.0); Hypochromasia Marked; Lymphocytes # (A) 2.8 k/uL (1.0-4.8); Lymphocytes % (A) 16 %; MCH 30.2 pg (25.0-35.0); MCHC 31.7 g/dL (31.0-37.0); MCV 95.4 fL (80.0-100.0); Mean Platelet Volume 12.3; Monocytes # (A) 0.8 k/uL (0-1.0); Monocytes % (A) 5 %; Neutrophils # (A) 14.1 k/uL (1.3-7.7); Neutrophils % (A) 78 %; Platelet Count 280 k/uL (150-450); RBC 4.47 m/uL (3.80-5.40); RDW 13.5 % (11.5-15.5)
[2022-03-01] MEDS ORDERED: CEFEPIME 2 GM in SODIUM CHLORIDE 0.9% 100 ML IVPB SCH (03:00)
[2022-03-01] MEDS: metroNIDAZOLE-NS PMX 500 MG in SALINE 1 100ML.BAG IVPB SCH ×3 (03:57→18:12)
[2022-03-01] MEDS ORDERED: KETOROLAC 15 MG/ML 1 ML VIAL IVP PRN (03:59)
[2022-03-01] MEDS ORDERED: ONDANSETRON 4 MG/2 ML VIAL IVP PRN (03:59)
[2022-03-01] MEDS ORDERED: NALOXONE 0.4 MG/ML 1 ML VIAL IV PRN (03:59)
[2022-03-01] MEDS: HYDROmorphone 1 MG/ML 1 ML SYRINGE IVP PRN ×5 (07:40→23:52)
[2022-03-01] MEDS: PANTOPRAZOLE 40 MG/10 ML VIAL IV SCH (09:26)
--- NOTE | 2022-03-01 12:33 | XR ---
EXAMINATION TYPE: XR chest 1V portable DATE OF EXAM: 03/01/2022 CLINICAL HISTORY: NG tube insertion. TECHNIQUE: Single AP portable upright view of the chest is obtained. COMPARISON: Chest x-ray from November 27, 2021 FINDINGS: Persistent low lung volumes with more prominent bibasilar opacities suggesting worsening a telectasis and/or acute infiltrate. Cardiac silhouette size stable and mildly enlarged with atheroscl erotic change aortic knob. Osseous structures are demineralized. 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 There is a new nasogastric tube projecting below diaphragm into slightly di stended stomach with air-fluid level. IMPRESSION: As above.
[2022-03-01] MEDS: ONDANSETRON 4 MG/2 ML VIAL IVP PRN ×2 (13:10→23:56)
--- NOTE | 2022-03-01 13:52 | P.GSCN ---
History of Present Illness Consult date: 03/01/22 History of present illness: CHIEF COMPLAINT: Abdominal pain HISTORY OF PRESENT ILLNESS: This is a 81-year-old female who presented with complaints of abdominal pain. She reports that the pain started after dinner last night around 6:00. She reports that her whole abdomen hurts. She has been nauseated. Denies any vomiting. Her last bowel movement was loose and was 2 days ago. She is no longer having any flatus. She does report that her abdomen was very distended on admission and the distention has decreased since yesterday. She has been requiring pain medicine and nausea medicine regularly. Patient denies any prior history of bowel obstruction. She has a history of constipation. She had a computed tomography scan abdomen and pelvis showing partial mechanical small bowel obstruction and an abdominal ventral hernia. She does have a significant surgical history for a ventral hernia repair 3, hysterectomy, bowel resection due to diverticulitis and appendectomy. Patient's is on Xarelto due to prior history of PE, DVT and A. fib. Patient also reports that she's been told that she is a poor surgical candidate due to her COPD and age. Surgical service has been consulted regarding possible partial mechanical small bowel obstruction. Patient had elevated blood pressures and WBC on admission. Patient seen and examined with Dr. cottrell PAST MEDICAL HISTORY: Frozen diaphragm. Atrial Fibrillation, Asthma, Cancer, COPD, Diabetes Mellitus, Deep Vein Thrombosis (DVT), Eye Disorder, GERD/Reflux, Hyperlipidemia, Hypertension, Pneumonia, Pulmonary Embolus (PE),MTHFR gene mutation, right breast cancer with mastectomy, diverticulitis with bowel resection, constipation PAST SURGICAL HISTORY: See below MEDICATIONS: See below ALLERGIES: See below SOCIAL HISTORY: No illicit drug use. REVIEW OF SYSTEMS: CONSTITUTIONAL: Denies fever or chills. HEENT: Denies blurred vision, vision changes, or eye pain. Denies hemoptysis CARDIOVASCULAR: Denies chest pain or pressure. RESPIRATORY: No shortness of breath. GASTROINTESTINAL: See HPI for pertinent findings HEMATOLOGIC: Denies bleeding disorders. GENITOURINARY: Denies any blood in urine or increased urinary frequency. SKIN: Denies pruitis. Denies rash. PHYSICAL EXAM: VITAL SIGNS: Reviewed GENERAL: Well-developed in no acute distress. HEENT: No sclera icterus. Extraocular movements grossly intact. Moist buccal mucosa. Head is atraumatic, normocephalic. No nasal drainage. ABDOMEN: Soft. Distended. Tenderness with palpation of the right mid abdomen old midline scar NEUROLOGIC: Alert and oriented. Cranial nerves II through XII grossly intact. LABORATORY DATA: WBC is 18 Hgb 13.5 platelets 280 Sodium is 144 potassium 3.6 creatinine 0.86 Lactic acid 0.9 Total bilirubin 0.7 AST 21 ALT 16 alk phos 74 Troponin 0.066 Lipase 33 IMAGING: Computed tomography scan of pelvis dilated small bowel with fluid levels consistent with partial mechanical small bowel obstruction. Infiltrate and atelectasis at both lung bases which is increased compared to old exam. Broad b ased lower abdominal ventral hernia. Hernia unchanged. ASSESSMENT: 1. Suspect mechanical small bowel obstruction. Patient has had no BMs and no flatus 2. Ventral abdominal hernia 3. Multiple abdominal surgeries PLAN: -NG tube placed for decompression -Keep patient nothing by mouth -Continue conservative management -Continue to monitor -Continue IV fluids -Continue antiemetics -Continue pain medication as needed -Ativan as needed for anxiety -Continue antiemetics as needed -Patient has history of COPD. Consult pulmonary service for pulmonary risk assessment in case patient requires surgical intervention. -Continue to hold Xarelto Physician Umbrella Finisher note has been reviewed by physician. Signing provider agrees with the documented findings, assessment, and plan of care. 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 History of Any Multi-Drug Resistant Organisms: None Reported Past Surgical History: Appendectomy, Breast Surgery, Hysterectomy Additional Past Surgical History / Comment(s): [place] filter, pericardial window, cardiac caths, R mastectomy, colonoscopies/benign polypectomies, bowel resection for diverticulitis, spleenectomy d/t hemolytic anemia, abdominal hernia surgeries/mesh. Past Anesthesia/Blood Transfusion Reactions: No Reported Reaction Additional Past Anesthesia/Blood Transfusion Reaction / Comm: trouble coming out of anesthesia. hemolytic anemia. Past Psychological History: Anxiety, Depression Smoking Status: Never smoker Past Alcohol Use History: None Reported Past Drug Use History: None Reported - Past Family History Mother Family Medical History: Coronary Artery Disease (CAD), Myocardial Infarction (NV) Additional Family Medical History / Comment(s): Mother had rheumatic fever. She had her first NV in her late 30s and of a NV at the age of 53 yrs. Father History Unknown: Yes Family Medical History: No Reported History Additional Family Medical History / Comment(s): Father in a traumatic accident when pt was 6 yrs old. Medications and Allergies Home Medications Medication Instructions Recorded Confirmed Type Atorvastatin Calcium [Lipitor] 10 mg PO AC-SUPPER 01/28/17 03/01/22 History Gabapentin [Neurontin] 300 mg PO BID 01/28/17 03/01/22 History Sertraline HCl [Zoloft] 150 mg PO DAILY 01/28/17 03/01/22 History Brinzolamide/Brimonidine Tart 1 drop BOTH EYES BID 12/06/19 03/01/22 History [Simbrinza 1%-0.2% Eye Drops] Rivaroxaban [Xarelto] 20 mg PO AC-SUPPER 12/06/19 03/01/22 History Betaxolol HCl [Betaxolol HCl 0.5% 1 drop BOTH EYES DAILY 11/16/20 03/01/22 History Ophth Soln] Bimatoprost [Lumigan 0.01% Ophth 1 drop BOTH EYES HS 11/16/20 03/01/22 History Soln] Losartan [Cozaar] 50 mg PO DAILY 11/16/20 03/01/22 History clonazePAM [KlonoPIN] 1 mg PO BID 12/02/20 03/01/22 History Diltiazem Oral [Cardizem*] 30 mg PO TID #90 tab 12/05/20 03/01/22 Rx Albuterol Inhaler [Ventolin Hfa 2 puff INHALATION RT-QID PRN 03/01/22 03/01/22 History Inhaler] Chlorthalidone [Hygroton] 25 mg PO DAILY 03/01/22 03/01/22 History Allergies Allergy/AdvReac Type Severity Reaction Status Date / Time Penicillins Allergy Rash/Hives Verified 03/01/22 08:13 Surgical - Exam Vital Signs Temp Pulse Resp Pulse Ox 97.8 F 59 L 22 95 03/01/22 00:16 03/01/22 00:16 03/01/22 00:16 03/01/22 00:16 Results - Labs 03/01/22 00:28 03/01/22 00:28 Abnormal Lab Results - Last 24 Hours (Table) 03/01/22 03/01/22 03/01/22 Range/Units 00:28 00:28 00:28 WBC 18.0 H (3.8-10.6) k/uL Neutrophils # 14.1 H (1.3-7.7) k/uL Carbon Dioxide 36 H (22-30) mmol/L Glucose 159 H (74-99) mg/dL Calcium 10.8 H (8.4-10.2) mg/dL Troponin I 0.066 H* (0.000-0.034) ng/mL Diabetes panel 03/01/22 Range/Units 00:28 Sodium 144 (137-145) mmol/L Potassium 3.6 (3.5-5.1) mmol/L Chloride 101 (98-107) mmol/L Carbon Dioxide 36 H (22-30) mmol/L BUN 14 (7-17) mg/dL Creatinine 0.86 (0.52-1.04) mg/dL Glucose 159 H (74-99) mg/dL Calcium 10.8 H (8.4-10.2) mg/dL AST 21 (14-36) U/L ALT 16 (4-34) U/L Alkaline Phosphatase 74 (38-126) U/L Total Protein 6.9 (6.3-8.2) g/dL Albumin 4.1 (3.5-5.0) g/dL Calcium panel 03/01/22 Range/Units 00:28 Calcium 10.8 H (8.4-10.2) mg/dL Albumin 4.1 (3.5-5.0) g/dL Pituitary panel 03/01/22 Range/Units 00:28 Sodium 144 (137-145) mmol/L Potassium 3.6 (3.5-5.1) mmol/L Chloride 101 (98-107) mmol/L Carbon Dioxide 36 H (22-30) mmol/L BUN 14 (7-17) mg/dL Creatinine 0.86 (0.52-1.04) mg/dL Glucose 159 H (74-99) mg/dL Calcium 10.8 H (8.4-10.2) mg/dL Adrenal panel 03/01/22 Range/Units 00:28 Sodium 144 (137-145) mmol/L Potassium 3.6 (3.5-5.1) mmol/L Chloride 101 (98-107) mmol/L Carbon Dioxide 36 H (22-30) mmol/L BUN 14 (7-17) mg/dL Creatinine 0.86 (0.52-1.04) mg/dL Glucose 159 H (74-99) mg/dL Calcium 10.8 H (8.4-10.2) mg/dL Total Bilirubin 0.7 (0.2-1.3) mg/dL AST 21 (14-36) U/L ALT 16 (4-34) U/L Alkaline Phosphatase 74 (38-126) U/L Total Protein 6.9 (6.3-8.2) g/dL Albumin 4.1 (3.5-5.0) g/dL
[2022-03-01] MEDS: CEFEPIME 2 GM in SODIUM CHLORIDE 0.9% 100 ML IVPB SCH (14:21)
[2022-03-01] MEDS: SODIUM CHLORIDE 0.9% 1,000 ML IV SCH (14:21)
[2022-03-01] MEDS: LOSARTAN 50 MG TAB PO SCH (16:53)
[2022-03-01] MEDS: DILTIAZEM ORAL 30 MG TAB PO SCH ×2 (16:53→23:11)
--- NOTE | 2022-03-01 17:04 | P.HPIM ---
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 At her baseline uses a walker, but goes outside.. Patient is 3 weeks been having trouble with constipation. Has gone to her PCP trying different laxatives. Decreased appetite. Patient's had previous abdominal surgery with 3 abdominal hernias and a mesh placement has been told to have any further surgeries. Yesterday started out with increasing abdominal pain rather severe. Dry heaving. No fever no chills. Review of systems: GEN.: Tired EYES: None HEENT: None NECK: None RESPIRATORY: As above CARDIOVASCULAR: None GASTROINTESTINAL: None GENITOURINARY: None MUSCULOSKELETAL: Some joint pains LYMPHATICS: None HEMATOLOGICAL: None PSYCHIATRY: None NEUROLOGICAL: None Past medical history to include: Home oxygen, right diaphragm paralysis, moderate persistent asthma, moderate secondary pulmonary hypertension, M.D. HF are gene mutation on xarelto, chronic pulmonary embolism and DVT, chronic abdominal wall hernia, hypertension, paroxysmal atrial fibrillation, Social history: Lives alone in the seated apartment. Home oxygen 2 L. Walker. No history of smoking or alcohol Family history: CAD. On examination: VITAL SIGNS: 97.8, 64, 18, 198 with 76, 96% on 2 L GENERAL APPEARANCE: Reclining in bed, uncomfortable, HEENT: Normal external appearance of nose and ear. Oral cavity dry. NG tube to suction EYES: Pupils equal. Conjunctiva normal. NECK: JVD not raised. Mass not palpable. RESPIRATORY: Respiratory effort increased. Lungs decreased breath sounds CARDIOVASCULAR: First and second sounds normal. No edema. ABDOMEN: Soft. Tender, no guarding rigidity, abdominal wall hernia, it was not palpable, MUSCULAR skeletal: Evidence of OA in several joints NEUROLOGICAL: Cranial nerves grossly intact. Poor sensation grossly intact.. PSYCHIATRY: Alert and oriented x3. Mood and affect anxious INVESTIGATIONS, reviewed in the clinical context: White count 18 hemoglobin 13.5 platelets 280 sodium 144 percussion 3.6 creatinine 0.86 Troponin I 0.066 EKG tracing personally reviewed by me-normal sinus rhythm. Rate 69 Chest x-ray film personally reviewed by me-expiratory. Some diaphragm elevation. CT abdomen and pelvis without contrast: Hernia unchanged. Dilated small bowel with fluid levels consistent with partial mechanical small bowel obstruction. [place] to be new 2020: Cardiac catheterization: Minimal plaque in the proximal LAD. Severely tortuous coronary arteries. 2-D echocardiogram: EF 55-60%. Oxal-gf-cniuregu mitral regurgitation Assessment and plan: -Acute partial small bowel obstruction. Patient with having problems with constipation last 2 weeks. Started of his significant pain yesterday. NG tube to suction - -Moderate persistent asthma: Improving DuoNeb 4 times a day. IV [id number] to by mouth prednisone -Moderate secondary pulmonary hypertension secondary to possibly asthma -MTHFR gene mutation hOld xarelto. Subcu Lovenox 80 mg every 12 -Chronic pulmonary embolism and DVT patient Hold xarelto. Lovenox -Chronic hypoxic respiratory failure on home oxygen 2 L, from right diaphragm paralysis and asthma Supplement oxygen -Chronic abdominal wall hernia, but prior 3 repairs -Essential hypertension Cardizem 30 mg 3 times a day chlorthalidone 25 mg daily,, Cozaar 50 mg daily -Paroxysmal atrial fibrillation, currently in sinus rhythm On xarelto. 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 -Anxiety depression Zoloft 150 mg a day -Chronic gait dysfunction Uses a walker at her baseline Surgery consulted. NG tube to suction. Oral medications through a G-tube. Subcu Lovenox. DuoNeb. Care was discussed with the patient and daughter the bedside. 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 History of Any Multi-Drug Resistant Organisms: None Reported Past Surgical History: Appendectomy, Breast Surgery, Hysterectomy Additional Past Surgical History / Comment(s): [place] filter, pericardial window, cardiac caths, R mastectomy, colonoscopies/benign polypectomies, bowel resection for diverticulitis, spleenectomy d/t hemolytic anemia, abdominal hernia surgeries/mesh. Past Anesthesia/Blood Transfusion Reactions: No Reported Reaction Additional Past Anesthesia/Blood Transfusion Reaction / Comment(s): trouble coming out of anesthesia. hemolytic anemia. Past Psychological History: Anxiety, Depression Smoking Status: Never smoker Past Alcohol Use History: None Reported Past Drug Use History: None Reported - Past Family History Mother Family Medical History: Coronary Artery Disease (CAD), Myocardial Infarction (CT) Additional Family Medical History / Comment(s): Mother had rheumatic fever. She had her first CT in her late 30s and of a CT at the age of 54 yrs. Father History Unknown: Yes Family Medical History: No Reported History Additional Family Medical History / Comment(s): Father in a traumatic accident when pt was 6 yrs old. Medications and Allergies Home Medications Medication Instructions Recorded Confirmed Type Atorvastatin Calcium [Lipitor] 10 mg PO AC-SUPPER 01/28/17 03/01/22 History Gabapentin [Neurontin] 300 mg PO BID 01/28/17 03/01/22 History Sertraline HCl [Zoloft] 150 mg PO DAILY 01/28/17 03/01/22 History Brinzolamide/Brimonidine Tart 1 drop BOTH EYES BID 12/06/19 03/01/22 History [Simbrinza 1%-0.2% Eye Drops] Rivaroxaban [Xarelto] 20 mg PO AC-SUPPER 12/06/19 03/01/22 History Betaxolol HCl [Betaxolol HCl 0.5% 1 drop BOTH EYES DAILY 11/16/20 03/01/22 History Ophth Soln] Bimatoprost [Lumigan 0.01% Ophth 1 drop BOTH EYES HS 11/16/20 03/01/22 History Soln] Losartan [Cozaar] 50 mg PO DAILY 11/16/20 03/01/22 History clonazePAM [KlonoPIN] 1 mg PO BID 12/02/20 03/01/22 History Diltiazem Oral [Cardizem*] 30 mg PO TID #90 tab 12/05/20 03/01/22 Rx Albuterol Inhaler [Ventolin Hfa 2 puff INHALATION RT-QID PRN 03/01/22 03/01/22 History Inhaler] Chlorthalidone [Hygroton] 25 mg PO DAILY 03/01/22 03/01/22 History Allergies Allergy/AdvReac Type Severity Reaction Status Date / Time Penicillins Allergy Rash/Hives Verified 03/01/22 08:13 Physical Exam Vitals: Vital Signs Temp Pulse Resp BP Pulse Ox 03/01/22 11:02 69 15 197/80 96 03/01/22 07:47 64 18 198/76 96 03/01/22 03:24 62 18 191/95 96 03/01/22 00:19 178/69 03/01/22 00:16 97.8 F 59 L 22 95 Intake and Output 02/28/22 03/01/22 03/01/22 22:59 06:59 14:59 Other: Weight 79.379 kg Results CBC & Chem 7: 03/01/22 00:28 03/01/22 00:28 Labs: Abnormal Lab Results - Last 24 Hours (Table) 03/01/22 03/01/22 03/01/22 Range/Units 00:28 00:28 00:28 WBC 18.0 H (3.8-10.6) k/uL Neutrophils # 14.1 H (1.3-7.7) k/uL Carbon Dioxide 36 H (22-30) mmol/L Glucose 159 H (74-99) mg/dL Calcium 10.8 H (8.4-10.2) mg/dL Troponin I 0.066 H* (0.000-0.034) ng/mL
--- NOTE | 2022-03-01 17:38 | P.CNPUL ---
History of Present Illness Consult date: 03/01/22 Requesting physician: Rg Barba Reason for consult: other Chief complaint: Bowel obstruction. History of present illness: Pulmonary consult dated 03/01/2022. 81-year-old female who presents to the emergency department, on March 01, complaining of abdominal pain. The patient's abdominal pain apparently developed about 24 hours prior to admission. More recently, she has been constipated, and she's been trying a number different things to relieve her constipation. The patient was seen in the ER, and also seen by surgery in the ER. I was asked to see her for preoperative clearance. The daughter, who I spoke with, would prefer not putting her mother to any surgery. For the patient , and the patient's daughter, surgery would be the last resort we had some sort of procedure a couple years at [facility], and almost . The patient also sees my partner in the office, for some chronic hypoxemic respiratory failure, and diaphragm dysfunction. She is a lifelong nonsmoker, and does have evidence of COPD on PFTs, with an FEV1 percent at 63. She does use oxygen at 2 L, /. Currently, she is getting saline at 75 mL an hour. There is an NG tube in place. White count 18, hemoglobin 13.5, hematocrit 42.6, and platelet count 280,000. Sodium 144, potassium 3.6, chlorides 101, CO2 36, BUN 14, and creatinine 0.86. Troponin was 0.066. CT of the abdomen and pelvis showed dilated small bowel with air-fluid levels consistent with partial mechanical small bowel obstruction. In addition, there is infiltrate and atelectasis at both lung bases. Finally, there is a broad-based lower abdominal ventral hernia. Chest x-rays consistent with low lung volumes, basilar atelectasis, or infiltrate, and elevated diaphragms. Review of Systems REVIEW OF SYSTEMS: CONSTITUTIONAL: [Negative.] NEUROLOGIC: [ Negative.] HEENT: [ Negative.] CARDIAC: [Negative.] PULMONARY: Chronic but stable shortness of breath. GI: Constipation. Abdominal pain. : [Negative.] RHEUMATOLOGIC: [ Negative.] IMMUNOLOGIC: [ Negative.] ENDOCRINE: [Negative. 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 History of Any Multi-Drug Resistant Organisms: None Reported Past Surgical History: Appendectomy, Breast Surgery, Hysterectomy Additional Past Surgical History / Comment(s): Ross filter, pericardial window, cardiac caths, R mastectomy, colonoscopies/benign polypectomies, bowel resection for diverticulitis, spleenectomy d/t hemolytic anemia, abdominal hernia surgeries/mesh. Past Anesthesia/Blood Transfusion Reactions: No Reported Reaction Additional Past Anesthesia/Blood Transfusion Reaction / Comment(s): trouble coming out of anesthesia. hemolytic anemia. Past Psychological History: Anxiety, Depression Smoking Status: Never smoker Past Alcohol Use History: None Reported Past Drug Use History: None Reported - Past Family History Mother Family Medical History: Coronary Artery Disease (CAD), Myocardial Infarction (ID) Additional Family Medical History / Comment(s): Mother had rheumatic fever. She had her first ID in her late 30s and of a ID at the age of 53 yrs. Father History Unknown: Yes Family Medical History: No Reported History Additional Family Medical History / Comment(s): Father in a traumatic accident when pt was 6 yrs old. Medications and Allergies Home Medications Medication Instructions Recorded Confirmed Type Atorvastatin Calcium [Lipitor] 10 mg PO AC-SUPPER 01/28/17 03/01/22 History Gabapentin [Neurontin] 300 mg PO BID 01/28/17 03/01/22 History Sertraline HCl [Zoloft] 150 mg PO DAILY 01/28/17 03/01/22 History Brinzolamide/Brimonidine Tart 1 drop BOTH EYES BID 12/06/19 03/01/22 History [Simbrinza 1%-0.2% Eye Drops] Rivaroxaban [Xarelto] 20 mg PO AC-SUPPER 12/06/19 03/01/22 History Betaxolol HCl [Betaxolol HCl 0.5% 1 drop BOTH EYES DAILY 11/16/20 03/01/22 History Ophth Soln] Bimatoprost [Lumigan 0.01% Ophth 1 drop BOTH EYES HS 11/16/20 03/01/22 History Soln] Losartan [Cozaar] 50 mg PO DAILY 11/16/20 03/01/22 History clonazePAM [KlonoPIN] 1 mg PO BID 12/02/20 03/01/22 History Diltiazem Oral [Cardizem*] 30 mg PO TID #90 tab 12/05/20 03/01/22 Rx Albuterol Inhaler [Ventolin Hfa 2 puff INHALATION RT-QID PRN 03/01/22 03/01/22 History Inhaler] Chlorthalidone [Hygroton] 25 mg PO DAILY 03/01/22 03/01/22 History Allergies Allergy/AdvReac Type Severity Reaction Status Date / Time Penicillins Allergy Rash/Hives Verified 03/01/22 08:13 Physical Exam Osteopathic Statement: *. No significant issues noted on an osteopathic structural exam other than those noted in the History and Physical/Consult. Vitals: Vital Signs Temp Pulse Resp BP Pulse Ox 03/01/22 11:02 69 15 197/80 96 03/01/22 07:47 64 18 198/76 96 03/01/22 03:24 62 18 191/95 96 03/01/22 00:19 178/69 03/01/22 00:16 97.8 F 59 L 22 95 Intake and Output 03/01/22 03/01/22 03/01/22 06:59 14:59 22:59 Other: Weight 79.379 kg No acute distress, oriented 3. NG tube in place. Patient on 2 L of oxygen. No respiratory difficulty, or use of accessory muscles. HEENT examination is grossly unremarkable. NG tube in place. Neck supple. Full range of motion. No adenopathy thyromegaly or neck vein distention. Cardiovascular examination reveals regular rhythm rate. S1-S2 normal. No S3 or S4. No discernible murmur noted. Heart rate 69 bpm. Lungs reveal mostly clear breath sounds. Few scattered rhonchi. No wheezes or crackles. Breath sounds equal bilaterally. Abdomen soft with diminished bowel sounds. Mild tenderness on palpation. Extremities are intact. No cyanosis clubbing or edema. Skin is without rash or lesion. Neurologic examination is brief but nonfocal. Results - Laboratory Findings CBC and BMP: 03/01/22 00:28 03/01/22 00:28 Abnormal lab findings: Abnormal Labs 03/01/22 03/01/22 03/01/22 00:28 00:28 00:28 WBC 18.0 H Neutrophils # 14.1 H Carbon Dioxide 36 H Glucose 159 H Calcium 10.8 H Troponin I 0.066 H* - Diagnostic Findings Chest x-ray: image reviewed Assessment and Plan Assessment: Abdominal pain, and constipation, related to a partial small bowel obstruction. History of chronic hypoxemic respiratory failure, secondary to COPD, and diaphragm dysfunction. History of hyperlipidemia. History of atrial fibrillation. History of diabetes mellitus. History of deep venous thrombosis and pulmonary embolism. History of GERD. History of MTHFR gene mutation. Multiple other medical problems and comorbidities. Plan: Plan dated 03/01/2022. The patient is extremely high risk for any surgical procedure. The family and the patient agree that conservative measures and conservative treatment should be instituted. They mention that a couple years back, she almost at [facility], following a surgical procedure. The details of that are not known. In addition, the patient has chronic hypoxemic respiratory failure, and uses oxygen, at 2 L, 24/7. We will continue to follow and make recommendations along the way. Prognosis is guarded. Time with Patient: Greater than 30
[2022-03-01] MEDS: IPRATROPIUM-ALBUTEROL 3 ML NEB INHALATION SCH ×2 (20:19→20:20)
[2022-03-01 20:34] LABS: Glucose,Whole Blood 136 mg/dL (70-110)
[2022-03-01 22:50] LABS: Appearance,Urine Clear (Clear); Bacteria,Urine Rare /hpf; Bilirubin,Urine Negative (Negative); Blood,Urine Trace (Negative); Color,Urine Yellow; Glucose,Urine (UA) Negative (Negative); Hyaline Casts,Urine 1 /lpf (0-2); Ketones,Urine Trace (Negative); Leukocyte Esterase,Urine Moderate (Negative); Mucus,Urine Rare /hpf; Nitrite,Urine Negative (Negative); PH, Urine 5.5 (5.0-8.0); Protein,Urine Trace (Negative); RBC,Urine 3 /hpf (0-5); Specific Gravity,Urine 1.027 (1.001-1.035); Squamous Epithelial Cell,Urine 1 /hpf (0-4); Urobilinogen,Urine <2.0 mg/dL (<2.0); WBC,Urine 11 /hpf (0-5)
[2022-03-01] MEDS: clonazePAM 1 MG TAB PO SCH (23:11)
[2022-03-01] MEDS: ENOXAPARIN 80 MG/0.8 ML SYRINGE SQ SCH (23:11)
[2022-03-01] MEDS: DORZOLAMIDE HCL 2% DROPS 10 ML BTL BOTH EYES SCH (23:12)
[2022-03-01] MEDS: LATANOPROST 0.005% OPHTH DROPS 2.5 ML BTL BOTH EYES SCH (23:12)
[2022-03-02] MEDS: metroNIDAZOLE-NS PMX 500 MG in SALINE 1 100ML.BAG IVPB SCH ×3 (01:10→17:16)
[2022-03-02] MEDS: CEFEPIME 2 GM in SODIUM CHLORIDE 0.9% 100 ML IVPB SCH ×2 (03:18→14:01)
[2022-03-02] MEDS: SODIUM CHLORIDE 0.9% 1,000 ML IV SCH ×2 (03:19→16:11)
[2022-03-02] MEDS: HYDROmorphone 1 MG/ML 1 ML SYRINGE IVP PRN ×4 (03:20→19:45)
[2022-03-02 05:49] LABS: Glucose,Whole Blood 120 mg/dL (70-110)
[2022-03-02] MEDS: INSULIN ASPART (NovoLOG) 100 UNIT/ML VIAL SQ SCH ×4 (05:50→21:08)
[2022-03-02 07:25] LABS: Basophils % (A) 0 %; Eosinophils # (A) 0.1 k/uL (0-0.7); Eosinophils % (A) 1 %; HCT 41.5 % (34.0-46.0); HGB 12.7 gm/dL (11.4-16.0); Hypochromasia Marked; Lymphocytes # (A) 1.8 k/uL (1.0-4.8); Lymphocytes % (A) 13 %; MCH 30.2 pg (25.0-35.0); MCHC 30.6 g/dL (31.0-37.0); MCV 98.9 fL (80.0-100.0); Mean Platelet Volume 10.6; Monocytes # (A) 0.9 k/uL (0-1.0); Monocytes % (A) 7 %; Neutrophils # (A) 10.2 k/uL (1.3-7.7); Neutrophils % (A) 78 %; Platelet Count 280 k/uL (150-450); RDW 13.1 % (11.5-15.5); WBC 13.1 k/uL (3.8-10.6)
[2022-03-02] MEDS: IPRATROPIUM-ALBUTEROL 3 ML NEB INHALATION SCH ×3 (08:27→21:22)
[2022-03-02] MEDS: PANTOPRAZOLE 40 MG/10 ML VIAL IV SCH (09:44)
[2022-03-02] MEDS: ENOXAPARIN 80 MG/0.8 ML SYRINGE SQ SCH ×2 (09:46→21:22)
[2022-03-02] MEDS: SERTRALINE 50 MG TAB PO SCH (09:47)
[2022-03-02] MEDS: clonazePAM 1 MG TAB PO SCH ×2 (09:48→23:07)
[2022-03-02] MEDS: DILTIAZEM ORAL 30 MG TAB PO SCH ×3 (09:48→21:22)
[2022-03-02] MEDS: LOSARTAN 50 MG TAB PO SCH (09:48)
[2022-03-02] MEDS: DORZOLAMIDE HCL 2% DROPS 10 ML BTL BOTH EYES SCH ×2 (09:49→21:22)
[2022-03-02] MEDS: ONDANSETRON 4 MG/2 ML VIAL IVP PRN ×3 (10:11→21:22)
[2022-03-02] MEDS: TIMOLOL 0.5% OPHTH DROPS 5 ML BTL BOTH EYES SCH (10:45)
--- NOTE | 2022-03-02 11:05 | P.PN ---
Progress Note - Text Progress Note Date: 03/02/22 Patient states her abdominal pain feels better today. She has had some output through NG tube. The night nurse concerned that there was some blood in the NG tube. However this morning there is no blood seen. On exam vital signs appear stable. Abdomen soft. There is a large mouth incisional hernia. The abdomen is soft. Resolving partial small bowel obstruction. Patient remained nothing by mouth with NG tube for now. We will start diet once her bowel function returns.
[2022-03-02 11:49] LABS: Glucose,Whole Blood 118 mg/dL (70-110)
--- NOTE | 2022-03-02 13:38 | P.PN ---
Subjective Progress Note Date: 03/02/22 81-year-old female who presents to the emergency department, on March 01, complaining of abdominal pain. The patient's abdominal pain apparently developed about 24 hours prior to admission. More recently, she has been constipated, and she's been trying a number different things to relieve her constipation. The patient was seen in the ER, and also seen by surgery in the ER. I was asked to see her for preoperative clearance. The daughter, who I spoke with, would prefer not putting her mother to any surgery. For the patient, and the patient's daughter, surgery would be the last resort we had so me sort of procedure a couple years at [facility], and almost . The patient also sees my partner in the office, for some chronic hypoxemic respiratory failure, and diaphragm dysfunction. She is a lifelong nonsmoker, and does have evidence of COPD on PFTs, with an FEV1 percent at 63. She does use oxygen at 2 L, 24/7. Currently, she is getting saline at 75 mL an hour. There is an NG tube in place. White count 18, hemoglobin 13.5, hematocrit 42.6, and platelet count 280,000. Sodium 144, potassium 3.6, chlorides 101, CO2 36, BUN 14, and creatinine 0.86. Troponin was 0.066. CT of the abdomen and pelvis showed dilated small bowel with air-fluid levels consistent with partial mechanical small bowel obstruction. In addition, there is infiltrate and atelectasis at both lung bases. Finally, there is a broad-based lower abdominal ventral hernia. Chest x-rays consistent with low lung volumes, basilar atelectasis, or infiltrate, and elevated diaphragms. The patient is seen today 03/02/2022 in follow-up on the regular medical floor. She is resting comfortably in bed. Awake and alert in no acute distress. She is maintaining O2 saturations in the 90s on 3 L/m per nasal cannula. Denies any significant abdominal discomfort. Nasogastric tube remains in place. Normal saline at 75 ML's per hour. White count 13.1. Hemoglobin 12.7. She remains on cefepime and Flagyl. Continue bronchodilators. Objective - Vital Signs Vital signs: Vital Signs Temp 98.5 F 03/02/22 09:40 Pulse 70 03/02/22 11:56 Resp 17 03/02/22 09:40 BP 143/74 03/02/22 09:40 Pulse Ox 95 03/02/22 09:40 FiO2 Intake & Output 03/01/22 03/02/22 03/02/22 18:59 06:59 18:59 Output Total 1025 Balance -1025 Weight 79.379 kg Output: Gastric Drainage 200 Urine 825 Straight 125 Uretheral (Frias) 175 Other: Voiding Method Bedpan # Voids 1 - Exam GENERAL EXAM: Alert, pleasant 81-year-old female, on 3 L, fairly comfortable in no apparent distress. HEAD: Normocephalic. EYES: Normal reaction of pupils, equal size. NOSE: Nasogastric tube secured in place. Clear with pink turbinates. THROAT: No erythema or exudates. NECK: No masses, no JVD. CHEST: No chest wall deformity. LUNGS: Equal air entry with no crackles, wheeze, rhonchi or dullness. CVS: S1 and S2 normal with no audible murmur, regular rhythm. ABDOMEN: Soft. Incisional hernia. No hepatosplenomegaly, hypoactive bowel sounds, no guarding or rigidity. SPINE: No scoliosis or deformity SKIN: No rashes CENTRAL NERVOUS SYSTEM: No focal deficits, tone is normal in all 4 extremities. EXTREMITIES: There is no peripheral edema. No clubbing, no cyanosis. Peripheral pulses are intact. - Labs CBC & Chem 7: 03/02/22 06:49 03/01/22 00:28 Labs: Abnormal Lab Results - Last 24 Hours (Table) 03/01/22 03/01/22 03/02/22 Range/Units 20:32 22:30 05:47 WBC (3.8-10.6) k/uL MCHC (31.0-37.0) g/dL Neutrophils # (1.3-7.7) k/uL POC Glucose (mg/dL) 136 H 120 H (70-110) mg/dL Urine Protein Trace H (Negative) Urine Ketones Trace H (Negative) Urine Blood Trace H (Negative) Ur Leukocyte Esterase Moderate H (Negative) Urine WBC 11 H (0-5) /hpf Urine Bacteria Rare H (None) /hpf Urine Mucus Rare H (None) /hpf 03/02/22 03/02/22 Range/Units 06:49 11:43 WBC 13.1 H (3.8-10.6) k/uL MCHC 30.6 L (31.0-37.0) g/dL Neutrophils # 10.2 H (1.3-7.7) k/uL POC Glucose (mg/dL) 118 H (70-110) mg/dL Urine Protein (Negative) Urine Ketones (Negative) Urine Blood (Negative) Ur Leukocyte Esterase (Negative) Urine WBC (0-5) /hpf Urine Bacteria (None) /hpf Urine Mucus (None) /hpf Assessment and Plan Assessment: Abdominal pain, and constipation, related to a partial small bowel obstruction. Nasogastric tube remains in place. History of chronic hypoxemic respiratory failure, secondary to COPD, and diaphragm dysfunction. History of hyperlipidemia. History of atrial fibrillation. History of diabetes mellitus. History of deep venous thrombosis and pulmonary embolism. History of GERD. History of MTHFR gene mutation. Multiple other medical problems and comorbidities. Plan: The patient was seen and evaluated Medications and labs reviewed Continue on cefepime and Flagyl Remains nothing by mouth with NG tube in place Surgical services following We will continue to follow I have personally seen and examined the patient, performed the documentation and the assessment and plan as written. Number of minutes spent on the visit: 10.
--- NOTE | 2022-03-02 16:17 | P.PN ---
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 At her baseline uses a walker, but goes outside.. Patient is 3 weeks been having trouble with constipation. Has gone to her PCP trying different laxatives. Decreased appetite. Patient's had previous abdominal surgery with 3 abdominal hernias and a mesh placement has been told to have any further surgeries. Yesterday started out with increasing abdominal pain rather severe. Dry heaving. No fever no chills. Admitted with partial small bowel obstruction. NG tube placed. 03/02/2022: NG tube to suction continues. Decreased abdominal pain. No factors. No BM. IV fluids. Nothing by mouth. Active Medications Albuterol/Ipratropium (Ipratropium-Albuterol 3 Ml Neb) 3 ml INHALATION RT-TID [facility] Last Admin: 03/02/22 11:54 Dose: 3 ml Clonazepam (Clonazepam 1 Mg Tab) 1 mg PO BID [facility] Last Admin: 03/02/22 09:48 Dose: 1 mg Diltiazem HCl (Diltiazem Oral 30 Mg Tab) 30 mg PO TID [facility] Last Admin: 03/02/22 16:11 Dose: 30 mg Dorzolamide HCl (Dorzolamide Hcl 2% Drops 10 Ml Btl) 1 drops BOTH EYES BID [facility] Last Admin: 03/02/22 09:49 Dose: 1 drops Enoxaparin Sodium (Enoxaparin 80 Mg/0.8 Ml Syringe) 80 mg SQ Q12HR [facility] Last Admin: 03/02/22 09:46 Dose: 80 mg Hydromorphone HCl (Hydromorphone 0.5 Mg/0.5 Ml Syringe) 0.5 mg IVP Q3HR PRN PRN Reason: Moderate Pain (Scale 4 to 6) Hydromorphone HCl (Hydromorphone 1 Mg/Ml 1 Ml Syringe) 1 mg IVP Q3HR PRN PRN Reason: Severe Pain (Scale 7 to 10) Last Admin: 03/02/22 13:57 Dose: 1 mg Metronidazole 500 mg/ IV (Solution) 100 mls @ 100 mls/hr IVPB Q8H [facility]; Protocol Last Admin: 03/02/22 09:47 Dose: 100 mls/hr Cefepime HCl 2 gm/ Sodium (Chloride) 100 mls @ 200 mls/hr IVPB Q12H [facility]; Protocol Last Admin: 03/02/22 14:01 Dose: 200 mls/hr Sodium Chloride (Saline 0.9%) 1,000 mls @ 75 mls/hr IV [id number] [facility] Last Admin: 03/02/22 16:11 Dose: 75 mls/hr Insulin Aspart (Insulin Aspart (Novolog) 100 Unit/Ml Vial) 0 unit SQ ACHS [facility]; Protocol Last Admin: 03/02/22 12:12 Dose: Not Given Ketorolac Tromethamine (Ketorolac 15 Mg/Ml 1 Ml Vial) 15 mg IVP Q6HR PRN PRN Reason: Moderate Pain (Scale 4 to 6) Stop: 03/04/22 04:01 Latanoprost (Latanoprost 0.005% Ophth Drops 2.5 Ml Btl) 1 drops BOTH EYES HS [facility] Last Admin: 03/01/22 23:12 Dose: 1 drops Lorazepam (Lorazepam 2 Mg/Ml Inj) 0.5 mg IV Q6HR PRN PRN Reason: Anxiety Losartan Potassium (Losartan 50 Mg Tab) 50 mg PO DAILY [facility] Last Admin: 03/02/22 09:48 Dose: 50 mg Naloxone HCl (Naloxone 0.4 Mg/Ml 1 Ml Vial) 0.2 mg IV Q2M PRN PRN Reason: Opioid Reversal Ondansetron HCl (Ondansetron 4 Mg/2 Ml Vial) 4 mg IVP Q6HR PRN PRN Reason: Nausea And Vomiting Last Admin: 03/02/22 16:11 Dose: 4 mg Pantoprazole Sodium (Pantoprazole 40 Mg/10 Ml Vial) 40 mg IV DAILY [facility] Last Admin: 03/02/22 09:44 Dose: 40 mg Sertraline HCl (Sertraline 50 Mg Tab) 150 mg PO DAILY [facility] Last Admin: 03/02/22 09:47 Dose: 150 mg Timolol Maleate (Timolol 0.5% Ophth Drops 5 Ml Btl) 1 drops BOTH EYES DAILY [facility] Last Admin: 03/02/22 10:45 Dose: 1 drops Past medical history to include: Home oxygen, right diaphragm paralysis, moderate persistent asthma, moderate secondary pulmonary hypertension, M.D. HF are gene mutation on xarelto, chronic pulmonary embolism and DVT, chronic abdominal wall hernia, hypertension, paroxysmal atrial fibrillation, Social history: Lives alone in the seated apartment. Home oxygen 2 L. Walker. No history of smoking or alcohol Family history: CAD. On examination: VITAL SIGNS: 98.6, 68, 18, 122/69, 97% on 3 L GENERAL APPEARANCE: Reclining in bed, not in distress HEENT: Normal external appearance of nose and ear. Oral cavity dry. NG tube to suction EYES: Pupils equal. Conjunctiva normal. NECK: JVD not raised. Mass not palpable. RESPIRATORY: Respiratory effort increased. Lungs decreased breath sounds CARDIOVASCULAR: First and second sounds normal. No edema. ABDOMEN: Soft. Mild Tender, no guarding rigidity, abdominal wall hernia, it was not palpable, hyperactive bowel sounds MUSCULAR skeletal: Evidence of OA in several joints NEUROLOGICAL: Cranial nerves grossly intact. Poor sensation grossly intact.. PSYCHIATRY: Alert and oriented x3. Mood and affect anxious INVESTIGATIONS, reviewed in the clinical context: 03/02/2022: White count 13.1 hemoglobin 12.7 platelets 280 White count 18 hemoglobin 13.5 platelets 280 sodium 144 percussion 3.6 creatinine 0.86 Troponin I 0.066 EKG tracing personally reviewed by me-normal sinus rhythm. Rate 69 Chest x-ray film personally reviewed by me-expiratory. Some diaphragm elevation. CT abdomen and pelvis without contrast: Hernia unchanged. Dilated small bowel with fluid levels consistent with partial mechanical small bowel obstruction. [place] to be new 2020: Cardiac catheterization: Minimal plaque in the proximal LAD. Severely tortuous coronary arteries. 2-D echocardiogram: EF 55-60%. [id number] mitral regurgitation Assessment and plan: -Acute partial small bowel obstruction. : Slow to respond NG tube to suction -Moderate persistent asthma DuoNeb 4 times a day. -Moderate secondary pulmonary hypertension secondary to possibly asthma -MTHFR gene mutation hOld xarelto. Subcu Lovenox 80 mg every 12 -Chronic pulmonary embolism and DVT patient Hold xarelto. Lovenox -Chronic hypoxic respiratory failure on home oxygen 2 L, from right diaphragm paralysis and asthma Supplement oxygen -Chronic abdominal wall hernia, with prior 3 repairs with mesh -Essential hypertension Cardizem 30 mg 3 times a day , Cozaar 50 mg daily -Paroxysmal atrial fibrillation, currently in sinus rhythm On xarelto. 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 -Anxiety depression Zoloft 150 mg a day -Chronic gait dysfunction Uses a walker at her baseline Continue NG tube to suction. Oral medications through a G-tube. Subcu Lovenox. DuoNeb. Care was discussed with the patient
[2022-03-02 16:36] LABS: Glucose,Whole Blood 122 mg/dL (70-110)
[2022-03-02 20:10] LABS: Glucose,Whole Blood 111 mg/dL (70-110)
[2022-03-02] MEDS: LORazepam 2 MG/ML INJ IV PRN (20:27)
[2022-03-02] MEDS: LATANOPROST 0.005% OPHTH DROPS 2.5 ML BTL BOTH EYES SCH (21:22)
[2022-03-03] MEDS: metroNIDAZOLE-NS PMX 500 MG in SALINE 1 100ML.BAG IVPB SCH ×3 (01:08→17:26)
[2022-03-03] MEDS: HYDROmorphone 1 MG/ML 1 ML SYRINGE IVP PRN ×2 (01:23→05:05)
[2022-03-03] MEDS: CEFEPIME 2 GM in SODIUM CHLORIDE 0.9% 100 ML IVPB SCH ×2 (02:32→14:01)
[2022-03-03] MEDS: ONDANSETRON 4 MG/2 ML VIAL IVP PRN (05:06)
[2022-03-03 05:54] LABS: Glucose,Whole Blood 117 mg/dL (70-110)
[2022-03-03] MEDS: INSULIN ASPART (NovoLOG) 100 UNIT/ML VIAL SQ SCH ×4 (06:09→20:41)
[2022-03-03] MEDS: SODIUM CHLORIDE 0.9% 1,000 ML IV SCH ×2 (06:10→17:09)
[2022-03-03] MEDS: SERTRALINE 50 MG TAB PO SCH (07:44)
[2022-03-03] MEDS: clonazePAM 1 MG TAB PO SCH ×2 (07:45→20:26)
[2022-03-03] MEDS: LOSARTAN 50 MG TAB PO SCH (07:45)
[2022-03-03] MEDS: DILTIAZEM ORAL 30 MG TAB PO SCH ×2 (07:46→15:16)
[2022-03-03] MEDS: PANTOPRAZOLE 40 MG/10 ML VIAL IV SCH (07:46)
[2022-03-03] MEDS: ENOXAPARIN 80 MG/0.8 ML SYRINGE SQ SCH ×2 (07:46→20:26)
[2022-03-03] MEDS: IPRATROPIUM-ALBUTEROL 3 ML NEB INHALATION SCH ×3 (07:47→18:52)
[2022-03-03] MEDS: DORZOLAMIDE HCL 2% DROPS 10 ML BTL BOTH EYES SCH ×2 (08:15→20:26)
[2022-03-03] MEDS: TIMOLOL 0.5% OPHTH DROPS 5 ML BTL BOTH EYES SCH (08:15)
--- NOTE | 2022-03-03 11:00 | P.PN ---
Progress Note - Text Progress Note Date: 03/03/22 The patient states she feels slightly better today. Her nasogastric tube drainage has decreased. She put out 150 mL overnight. She denies any flatus. On exam vital signs are stable. Abdomen is soft. Multiple healed laparoscopic scars there is a large incisional hernia which is soft. Resolving partial small bowel obstruction. Patient will continue nasogastric decompression until she has significant bowel function.
[2022-03-03 12:25] LABS: Glucose,Whole Blood 112 mg/dL (70-110)
[2022-03-03] MEDS: LORazepam 2 MG/ML INJ IV PRN (12:45)
--- NOTE | 2022-03-03 13:26 | P.PN ---
Subjective Progress Note Date: 03/03/22 Principal diagnosis: Abdominal pain. 81-year-old female who presents to the emergency department, on March 01, complaining of abdominal pain. The patient's abdominal pain apparently developed about 24 hours prior to admission. More recently, she has been constipated, and she's been trying a number different things to relieve her constipation. The patient was seen in the ER, and also seen by surgery in the ER. I was asked to see her for preoperative clearance. The daughter, who I spoke with, would prefer not putting her mother to any surgery. For the patient, and the patient's daughter, surgery would be the last resort we had some sort of procedure a couple years at [facility], and almost . The patient also sees my partner in the office, for some chronic hypoxemic respiratory failure, and diaphragm dysfunction. She is a lifelong nonsmoker, and does have evidence of COPD on PFTs, with an FEV1 percent at 63. She does use oxygen at 2 L, 24/7. Currently, she is getting saline at 75 mL an hour. There is an NG tube in place. White count 18, hemoglobin 13.5, hematocrit 42.6, and platelet count 280,000. Sodium 144, potassium 3.6, chlorides 101, CO2 36, BUN 14, and creatinine 0.86. Troponin was 0.066. CT of the abdomen and pelvis showed dilated small bowel with air-fluid levels consistent with partial mechanical small bowel obstruction. In addition, there is infiltrate and atelectasis at both lung bases. Finally, there is a broad- based lower abdominal ventral hernia. Chest x-rays consistent with low lung volumes, basilar atelectasis, or infiltrate, and elevated diaphragms. The patient is seen today 03/02/2022 in follow-up on the regular medical floor. She is resting comfortably in bed. Awake and alert in no acute distress. She is maintaining O2 saturations in the 90s on 3 L/m per nasal cannula. Denies any significant abdominal discomfort. Nasogastric tube remains in place. Normal saline at 75 ML's per hour. White count 13.1. Hemoglobin 12.7. She remains on cefepime and Flagyl. Continue bronchodilators. Progress note dated 03/03/2022. The patient is seen today in room 472. She was initially seen by our team down in the emergency room. She came into the emergency room with complaints of abdominal distention and pain, and constipation. Currently, she is on saline at 75 mL an hour. She's on nasal oxygen at 2 L, and she has an NG tube in place. She's had very little output from the NG tube overnight, according to the nurse. No new laboratory data today. Lab data from the day before, have been reviewed. Objective - Vital Signs Vital signs: Vital Signs Temp 98.5 F 03/03/22 08:00 Pulse 76 03/03/22 12:19 Resp 17 03/03/22 08:00 BP 179/77 03/03/22 08:00 Pulse Ox 96 03/03/22 08:00 FiO2 Intake & Output 03/02/22 03/03/22 03/03/22 18:59 06:59 18:59 Intake Total 0 Output Total 475 500 Balance -475 -500 Intake: Oral 0 Output: Gastric Drainage 150 Urine 325 500 Other: Voiding Method Indwelling Catheter Indwelling Catheter Indwelling Catheter - Exam No acute distress, oriented 3. The patient is a bit sleepy, but does arouse. Nasal O2 noted. In addition, the patient has an NG tube in. HEENT examination is grossly unremarkable. Neck supple. Full range of motion. No adenopathy thyromegaly or neck vein distention. Cardiovascular examination reveals regular rhythm rate. S1-S2 normal. No S3 or S4. No discernible murmur noted. Heart rate 76 bpm. Lungs reveal mostly clear breath sounds. Scattered rhonchi are noted. No wheezes or crackles. 3 L saturation is 96%. Abdomen soft, without tenderness or mass. Extremities are intact. No cyanosis clubbing or edema. Skin is without rash or lesion. Neurologic examination is brief but nonfocal. - Labs CBC & Chem 7: 03/02/22 06:49 03/01/22 00:28 Labs: Abnormal Lab Results - Last 24 Hours (Table) 03/02/22 03/02/22 03/03/22 Range/Units 16:34 20:06 05:52 POC Glucose (mg/dL) 122 H 111 H 117 H (70-110) mg/dL 03/03/22 Range/Units 12:22 POC Glucose (mg/dL) 112 H (70-110) mg/dL Microbiology - Last 24 Hours (Table) 03/01/22 22:30 Urine Culture - Preliminary Urine,Voided Assessment and Plan Assessment: Abdominal pain, and constipation, related to a partial small bowel obstruction. History of chronic hypoxemic respiratory failure, secondary to COPD, and diaphragm dysfunction. History of hyperlipidemia. History of atrial fibrillation. History of diabetes mellitus. History of deep venous thrombosis and pulmonary embolism. History of GERD. History of MTHFR gene mutation. Multiple other medical problems and comorbidities. Plan: Plan dated 03/01/2022. The patient is extremely high risk for any surgical procedure. The family and the patient agree that conservative measures and conservative treatment should be instituted. They mention that a couple years back, she almost at [facility], following a surgical procedure. The details of that are not known. In addition, the patient has chronic hypoxemic respiratory failure, and uses oxygen, at 2 L, 24/7. We will continue to follow and make recommendations along the way. Prognosis is guarded. Plan dated 03/03/2022. The plan here is conservative management. The patient made it very clear along with her daughter, that they did not want surgery, unless it was the last option. They want to do everything short of surgery. Currently, the patient appears reasonably stable. She is on oxygen, and has an NG tube in place. She's getting fluids. She has not had a bowel movement. Very little to no output from the NG tube overnight according to the nurse. Time with Patient: Less than 30
--- NOTE | 2022-03-03 16:08 | P.PN ---
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 At her baseline uses a walker, but goes outside.. Patient is 3 weeks been having trouble with constipation. Has gone to her PCP trying different laxatives. Decreased appetite. Patient's had previous abdominal surgery with 3 abdominal hernias and a mesh placement has been told to have any further surgeries. Yesterday started out with increasing abdominal pain rather severe. Dry heaving. No fever no chills. Admitted with partial small bowel obstruction. NG tube placed. 03/02/2022: NG tube to suction continues. Decreased abdominal pain. No factors. No BM. IV fluids. Nothing by mouth. 03/03/2022: NG tube suction continues. Had some epistaxis earlier. We'll put local ointment. Patient earlier this month had epistaxis with cauterization. Has passed some flatus. No BM. Active Medications Albuterol/Ipratropium (Ipratropium-Albuterol 3 Ml Neb) 3 ml INHALATION RT-TID [facility] Last Admin: 03/03/22 12:08 Dose: 3 ml Clonazepam (Clonazepam 1 Mg Tab) 1 mg PO BID [facility] Last Admin: 03/03/22 07:45 Dose: 1 mg Diltiazem HCl (Diltiazem Oral 30 Mg Tab) 30 mg PO TID [facility] Last Admin: 03/03/22 15:16 Dose: 30 mg Dorzolamide HCl (Dorzolamide Hcl 2% Drops 10 Ml Btl) 1 drops BOTH EYES BID [facility] Last Admin: 03/03/22 08:15 Dose: 1 drops Enoxaparin Sodium (Enoxaparin 80 Mg/0.8 Ml Syringe) 80 mg SQ Q12HR [facility] Last Admin: 03/03/22 07:46 Dose: 80 mg Hydromorphone HCl (Hydromorphone 0.5 Mg/0.5 Ml Syringe) 0.5 mg IVP Q3HR PRN PRN Reason: Moderate Pain (Scale 4 to 6) Hydromorphone HCl (Hydromorphone 1 Mg/Ml 1 Ml Syringe) 1 mg IVP Q3HR PRN PRN Reason: Severe Pain (Scale 7 to 10) Last Admin: 03/03/22 05:05 Dose: 1 mg Metronidazole 500 mg/ IV (Solution) 100 mls @ 100 mls/hr IVPB Q8H [facility]; Protocol Last Admin: 03/03/22 09:27 Dose: 100 mls/hr Cefepime HCl 2 gm/ Sodium (Chloride) 100 mls @ 200 mls/hr IVPB Q12H [facility]; Protocol Last Admin: 03/03/22 14:01 Dose: 200 mls/hr Sodium Chloride (Saline 0.9%) 1,000 mls @ 75 mls/hr IV .[id number] [facility] Last Admin: 03/03/22 06:10 Dose: 75 mls/hr Insulin Aspart (Insulin Aspart (Novolog) 100 Unit/Ml Vial) 0 unit SQ ACHS [facility]; Protocol Last Admin: 03/03/22 12:28 Dose: Not Given Ketorolac Tromethamine (Ketorolac 15 Mg/Ml 1 Ml Vial) 15 mg IVP Q6HR PRN PRN Reason: Moderate Pain (Scale 4 to 6) Stop: 03/04/22 04:01 Latanoprost (Latanoprost 0.005% Ophth Drops 2.5 Ml Btl) 1 drops BOTH EYES HS [facility] Last Admin: 03/02/22 21:22 Dose: 1 drops Lorazepam (Lorazepam 2 Mg/Ml Inj) 0.5 mg IV Q6HR PRN PRN Reason: Anxiety Last Admin: 03/03/22 12:45 Dose: 0.5 mg Losartan Potassium (Losartan 50 Mg Tab) 50 mg PO DAILY [facility] Last Admin: 03/03/22 07:45 Dose: 50 mg Naloxone HCl (Naloxone 0.4 Mg/Ml 1 Ml Vial) 0.2 mg IV Q2M PRN PRN Reason: Opioid Reversal Ondansetron HCl (Ondansetron 4 Mg/2 Ml Vial) 4 mg IVP Q6HR PRN PRN Reason: Nausea And Vomiting Last Admin: 03/03/22 05:06 Dose: 4 mg Pantoprazole Sodium (Pantoprazole 40 Mg/10 Ml Vial) 40 mg IV DAILY [facility] Last Admin: 03/03/22 07:46 Dose: 40 mg Sertraline HCl (Sertraline 50 Mg Tab) 150 mg PO DAILY [facility] Last Admin: 03/03/22 07:44 Dose: 150 mg Timolol Maleate (Timolol 0.5% Ophth Drops 5 Ml Btl) 1 drops BOTH EYES DAILY [facility] Last Admin: 03/03/22 08:15 Dose: 1 drops Past medical history to include: Home oxygen, right diaphragm paralysis, moderate persistent asthma, moderate secondary pulmonary hypertension, M.D. HF are gene mutation on xarelto, chronic pulmonary embolism and DVT, chronic abdominal wall hernia, hypertension, paroxysmal atrial fibrillation, Social history: Lives alone in the seated apartment. Home oxygen 2 L. Walker. No history of smoking or alcohol Family history: CAD. On examination: VITAL SIGNS: 98.5, 69, 16, 16 6 x 80, 94% on 3 L GENERAL APPEARANCE: Reclining in bed, not in distress HEENT: Normal external appearance of nose and ear. Oral cavity dry. NG tube to suction EYES: Pupils equal. Conjunctiva normal. NECK: JVD not raised. Mass not palpable. RESPIRATORY: Respiratory effort increased. Lungs decreased breath sounds CARDIOVASCULAR: First and second sounds normal. No edema. ABDOMEN: Soft. Mild Tender, no guarding rigidity, abdominal wall hernia, it was not palpable, hyperactive bowel sounds MUSCULAR skeletal: Evidence of OA in several joints NEUROLOGICAL: Cranial nerves grossly intact. Poor sensation grossly intact.. PSYCHIATRY: Alert and oriented x3. Mood and affect anxious INVESTIGATIONS, reviewed in the clinical context: 03/02/2022: White count 13.1 hemoglobin 12.7 platelets 280 White count 18 hemoglobin 13.5 platelets 280 sodium 144 percussion 3.6 creatinine 0.86 Troponin I 0.066 EKG tracing personally reviewed by me-normal sinus rhythm. Rate 69 Chest x-ray film personally reviewed by me-expiratory. Some diaphragm elevation. CT abdomen and pelvis without contrast: Hernia unchanged. Dilated small bowel with fluid levels consistent with partial mechanical small bowel obstruction. [place] to be new 2020: Cardiac catheterization: Minimal plaque in the proximal LAD. Severely tortuous coronary arteries. 2-D echocardiogram: EF 55-60%. [id number] mitral regurgitation Assessment and plan: -Acute partial small bowel obstruction. : Slow to respond NG tube to suction -Moderate persistent asthma DuoNeb 4 times a day. -Moderate secondary pulmonary hypertension secondary to possibly asthma -MTHFR gene mutation hOld xarelto. Subcu Lovenox 80 mg every 12 -Chronic pulmonary embolism and DVT patient Hold xarelto. Lovenox -Chronic hypoxic respiratory failure on home oxygen 2 L, from right diaphragm paralysis and asthma Supplement oxygen -Chronic abdominal wall hernia, with prior 3 repairs with mesh -Essential hypertension Cardizem 30 mg 3 times a day , Cozaar 50 mg daily -Paroxysmal atrial fibrillation, currently in sinus rhythm On xarelto currently on Lovenox. 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 -Anxiety depression Zoloft 150 mg a day -Chronic gait dysfunction Uses a walker at her baseline Continue NG tube to suction. Oral medications through a G-tube. Subcu Lovenox. DuoNeb. Topical nasal ointment for prevention of epistaxis. Check labs.
[2022-03-03 16:50] LABS: Glucose,Whole Blood 109 mg/dL (70-110)
[2022-03-03] MEDS: DILTIAZEM ORAL 60 MG TAB PO SCH (20:25)
[2022-03-03] MEDS: LATANOPROST 0.005% OPHTH DROPS 2.5 ML BTL BOTH EYES SCH (20:26)
[2022-03-03 20:32] LABS: Glucose,Whole Blood 119 mg/dL (70-110)
[2022-03-03] MEDS: HYDROmorphone 0.5 MG/0.5 ML SYRINGE IVP PRN (21:24)
[2022-03-03] MEDS: METOPROLOL TARTRATE 25 MG TAB PO SCH (22:25)
[2022-03-04] MEDS: CEFEPIME 2 GM in SODIUM CHLORIDE 0.9% 100 ML IVPB SCH ×2 (02:57→16:10)
[2022-03-04] MEDS: HYDROmorphone 0.5 MG/0.5 ML SYRINGE IVP PRN ×2 (02:58→10:18)
[2022-03-04] MEDS: ONDANSETRON 4 MG/2 ML VIAL IVP PRN (02:58)
[2022-03-04] MEDS: metroNIDAZOLE-NS PMX 500 MG in SALINE 1 100ML.BAG IVPB SCH ×3 (03:35→19:14)
[2022-03-04 06:26] LABS: Glucose,Whole Blood 123 mg/dL (70-110)
[2022-03-04] MEDS: INSULIN ASPART (NovoLOG) 100 UNIT/ML VIAL SQ SCH ×4 (06:37→20:49)
[2022-03-04 07:28] LABS: African American GFR (CKD) 80 (>60 ml/min/1.73 sqM); Anion Gap 4 mmol/L; Blood Urea Nitrogen 19 mg/dL (7-17); Calcium 9.1 mg/dL (8.4-10.2); Carbon Dioxide 34 mmol/L (22-30); Chloride 104 mmol/L (98-107); Glucose 112 mg/dL (74-99); Non-African American GFR(CKD) 69 (>60 ml/min/1.73 sqM); Potassium 2.8 mmol/L (3.5-5.1); Sodium 142 mmol/L (137-145)
[2022-03-04] MEDS: IPRATROPIUM-ALBUTEROL 3 ML NEB INHALATION SCH ×3 (07:55→19:40)
[2022-03-04] MEDS ORDERED: POTASSIUM CHLORIDE ER 20 MEQ TAB.ER PO SCH (08:00)
--- NOTE | 2022-03-04 08:53 | P.CRDCN ---
History of Present Illness Consult date: 03/04/22 Requesting physician: Rhett Ashraf Consult reason: atrial flutter History of present illness: HISTORY OF PRESENT ILLNESS: This is an 81-year-old female patient of Dr. Rivera with a past medical history significant for COPD with chronic hypoxic respiratory failure on home O2, paroxysmal atrial fibrillation, moderate aortic regurgitation, hypertension, and hyperlipidemia. We have been asked to see the patient in consultation for atrial flutter. Patient examined at the bedside. Patient presented to the hospital with a chief complaint of constipation secondary to partial small bowel obstruction. Last evening, patient developed irregular heartbeat running between 115 140. EKG was obtained which revealed atypical atrial flutter and thus a cardiology consult was placed. Patient is asymptomatic. She is currently on subcu Lovenox. There is no plan for surgical intervention. EKG from 03/01 reveals sinus bradycardia at 69 bpm, no acute ischemic changes. Repeat EKG from 03/03 reveals atypical atrial flutter Chest xray revealed bibasilar opacities suggesting worsening atelectasis and/or acute infiltrate. Laboratory data: WBC 13.1, hemoglobin 12.7, platelet count 280. Potassium 2.8, CO2 34, BUN 19 and creatinine 0.8. Troponin 0.066. Potassium replacement has been ordered of 80 mEq by general surgery. Current home cardiac medications include atorvastatin 10 mg with supper, Hygr oton 25 mg daily, Cardizem 30 mg 3 times daily, losartan 59 g daily, Xarelto 20 mg with supper Most recent echocardiogram obtained in October 2020 revealed normal LV systolic function with [id number] mitral regurgitation, mild tricuspid, mild aortic regurgitation Cardiac catheterization history: October 2020 revealed minimal plaque in the proximal LAD, severely tortuous coronary arteries, right dominance REVIEW OF SYSTEMS: At the time of my exam: CONSTITUTIONAL: Denies fever or chills. HEENT: Denies blurred vision, vision changes, or eye pain. Denies hemoptysis CARDIOVASCULAR: Denies chest pain. Denies orthopnea. Denies PND. Denies palpitations RESPIRATORY: Denies shortness of breath. GASTROINTESTINAL: Reports abdominal pain. Denies nausea or vomiting. HEMATOLOGIC: Denies bleeding disorders. GENITOURINARY: Denies any blood in urine. SKIN: Denies pruitis. Denies rash. PHYSICAL EXAM: VITAL SIGNS: Reviewed. GENERAL: Well-developed in no acute distress. HEENT: Head is normocephalic. Pupils are equal, round. Sclerae anicteric. Mucous membranes of the mouth are moist. Neck supple. No JVD or thyromegaly LUNGS: Respirations even and unlabored. Lungs bilateral expiratory wheeze bilaterally. HEART: Regular rate and rhythm. S1 and S2 heard. Diastolic murmur noted ABDOMEN: Soft. Nondistended. Nontender. EXTREMITIES: Normal range of motion. No clubbing or cyanosis. Peripheral pulses intact. No lower extremity edema NEUROLOGIC: Awake and alert. Oriented x 3. ASSESSMENT: Atypical atrial flutter Paroxysmal atrial fibrillation, on anticoagulation with Xarelto Partial small bowel obstruction COPD with chronic hypoxic respiratory failure Mild aortic regurgitation Hypertension Hyperlipidemia PLAN: Resume patient on Xarelto once cleared by general surgery Continue patient on Cardizem and increase dose of 60 mg 3 times daily, patient has been started on Lopressor 25 mg twice daily Continue blood pressure medications Further recommendations pending patient's course Nurse practitioner note has been reviewed by physician. Signing provider agrees with the documented findings, assessment, and plan of care. Past Medical History Past Medical History: Atrial Fibrillation, Asthma, Cancer, COPD, Diabetes M ellitus, Deep Vein Thrombosis (DVT), Eye Disorder, GERD/Reflux, Hyperlipidemia, Hypertension, Pneumonia, Pulmonary Embolus (PE), Seizure Disorder Additional Past Medical History / Comment(s): Paroxysmal afib, pt had traumatic fall 08/2018 and had takoMTHFR gene mutation, PEs x3, DVTs R arm and bilateral legs, hemolytic anemia, pericardial effusion with pericardial window, NIDDM type II-diet controlled now, R breast cancer with mastectomy, bronchitis, bronchial asthma, home oxygen at 2L/NC ATC, diverticulitis with bowel resection, constipation, chronic abdominal hernia, hiatal hernia, bilateral glaucoma, had 1 seizure in past when young History of Any Multi-Drug Resistant Organisms: None Reported Past Surgical History: Appendectomy, Breast Surgery, Hysterectomy Additional Past Surgical History / Comment(s): Ross filter, pericardial window, cardiac caths, R mastectomy, colonoscopies/benign polypectomies, bowel resection for diverticulitis, spleenectomy d/t hemolytic anemia, abdominal hernia surgeries/mesh. Past Anesthesia/Blood Transfusion Reactions: No Reported Reaction Additional Past Anesthesia/Blood Transfusion Reaction / Comment(s): trouble coming out of anesthesia. hemolytic anemia. Past Psychological History: Anxiety, Depression Additional Psychological History / Comment(s): Pt resides alone in a senior apartment. She uses oxygen at 2L/NC ATC. She has a glucometer but no supplies any longer-now diabetes is diet controlled. She uses a walker. She no longer drives, family or friends take her to appts. Smoking Status: Never smoker Past Alcohol Use History: None Reported Past Drug Use History: None Reported - Past Family History Mother Family Medical History: Coronary Artery Disease (CAD), Myocardial Infarction (NH) Additional Family Medical History / Comment(s): Mother had rheumatic fever. She had her first NH in her late 30s and of a NH at the age of 54 yrs. Father History Unknown: Yes Family Medical History: No Reported History Additional Family Medical History / Comment(s): Father in a traumatic accident when pt was 6 yrs old. Medications and Allergies Home Medications Medication Instructions Recorded Confirmed Type Atorvastatin Calcium [Lipitor] 10 mg PO AC-SUPPER 01/28/17 03/01/22 History Gabapentin [Neurontin] 300 mg PO BID 01/28/17 03/01/22 History Sertraline HCl [Zoloft] 150 mg PO DAILY 01/28/17 03/01/22 History Brinzolamide/Brimonidine Tart 1 drop BOTH EYES BID 12/06/19 03/01/22 History [Simbrinza 1%-0.2% Eye Drops] Rivaroxaban [Xarelto] 20 mg PO AC-SUPPER 12/06/19 03/01/22 History Betaxolol HCl [Betaxolol HCl 0.5% 1 drop BOTH EYES DAILY 11/16/20 03/01/22 History Ophth Soln] Bimatoprost [Lumigan 0.01% Ophth 1 drop BOTH EYES HS 11/16/20 03/01/22 History Soln] Losartan [Cozaar] 50 mg PO DAILY 11/16/20 03/01/22 History clonazePAM [KlonoPIN] 1 mg PO BID 12/02/20 03/01/22 History Diltiazem Oral [Cardizem*] 30 mg PO TID #90 tab 12/05/20 03/01/22 Rx Albuterol Inhaler [Ventolin Hfa 2 puff INHALATION RT-QID PRN 03/01/22 03/01/22 History Inhaler] Chlorthalidone [Hygroton] 25 mg PO DAILY 03/01/22 03/01/22 History Allergies Allergy/AdvReac Type Severity Reaction Status Date / Time Penicillins Allergy Rash/Hives Verified 03/01/22 08:13 Physical Exam Vitals: Vital Signs Temp Pulse Pulse Pulse Resp BP Pulse Ox 03/04/22 07:57 64 03/04/22 03:06 64 03/04/22 00:23 98.2 F 51 L 18 136/83 94 L 03/03/22 20:00 116 H 20 03/03/22 19:02 97.9 F 74 116 H 20 160/79 97 03/03/22 18:53 69 03/03/22 14:00 98.5 F 69 16 166/80 94 L 03/03/22 12:19 76 03/03/22 12:10 70 Intake and Output 03/03/22 03/04/22 03/04/22 22:59 06:59 14:59 Output Total 800 425 Balance -800 -425 Output: Urine 800 425 Other: Voiding Method Indwelling Catheter Results 03/02/22 06:49 03/04/22 06:07 Comprehensive Metabolic Panel 03/04/22 Range/Units 06:07 Sodium 142 (137-145) mmol/L Potassium 2.8 L (3.5-5.1) mmol/L Chloride 104 (98-107) mmol/L Carbon Dioxide 34 H (22-30) mmol/L BUN 19 H (7-17) mg/dL Creatinine 0.81 (0.52-1.04) mg/dL Glucose 112 H (74-99) mg/dL Calcium 9.1 (8.4-10.2) mg/dL Current Medications Generic Name Dose Route Start Last Admin Trade Name Freq PRN Reason Stop Dose Admin Albuterol/Ipratropium 3 ml 03/01/22 17:15 03/04/22 07:55 Ipratropium-Albuterol 3 Ml Neb INHALATION 3 ml RT-TID JOHNY Administration Clonazepam 1 mg 03/01/22 21:00 03/03/22 20:26 Clonazepam 1 Mg Tab PO 1 mg BID JOHNY Administration Diltiazem HCl 60 mg 03/03/22 22:00 03/03/22 20:25 Diltiazem Oral 60 Mg Tab PO 60 mg TID JOHNY Administration Dorzolamide HCl 1 drops 03/01/22 21:00 03/03/22 20:26 Dorzolamide Hcl 2% Drops 10 Ml Btl BOTH EYES 1 drops BID JOHNY Administration Enoxaparin Sodium 80 mg 03/01/22 21:00 03/03/22 20:26 Enoxaparin 80 Mg/0.8 Ml Syringe SQ 80 mg Q12HR JOHNY Administration Hydromorphone HCl 0.5 mg 03/01/22 03:59 03/04/22 02:58 Hydromorphone 0.5 Mg/0.5 Ml Syringe IVP 0.5 mg Q3HR PRN Administration Moderate Pain (Scale 4 to 6) Hydromorphone HCl 1 mg 03/01/22 03:59 03/03/22 05:05 Hydromorphone 1 Mg/Ml 1 Ml Syringe IVP 1 mg Q3HR PRN Administration Severe Pain (Scale 7 to 10) Metronidazole 500 mg/ IV 100 mls @ 100 mls/hr 03/01/22 02:00 03/04/22 03:35 Solution IVPB 100 mls/hr Q8H [facility] Administration Protocol Cefepime HCl 2 gm/ Sodium 100 mls @ 200 mls/hr 03/01/22 15:00 03/04/22 02:57 Chloride IVPB 200 mls/hr Q12H [facility] Administration Protocol Sodium Chloride 1,000 mls @ 75 mls/hr 03/01/22 14:00 03/03/22 17:09 Saline 0.9% IV Not Given .[id number] [facility] Insulin Aspart 0 unit 03/02/22 07:30 03/04/22 06:37 Insulin Aspart (Novolog) 100 Unit/Ml Vial SQ Not Given ACHS [facility] Protocol Latanoprost 1 drops 03/01/22 21:00 03/03/22 20:26 Latanoprost 0.005% Ophth Drops 2.5 Ml Btl BOTH EYES 1 drops HS JOHNY Administration Lorazepam 0.5 mg 03/01/22 12:15 03/03/22 12:45 Lorazepam 2 Mg/Ml Inj IV 0.5 mg Q6HR PRN Administration Anxiety Losartan Potassium 50 mg 03/01/22 15:45 03/03/22 07:45 Losartan 50 Mg Tab PO 50 mg DAILY JOHNY Administration Metoprolol Tartrate 25 mg 03/03/22 22:15 03/03/22 22:25 Metoprolol Tartrate 25 Mg Tab PO 25 mg BID JOHNY Administration Naloxone HCl 0.2 mg 03/01/22 03:59 Naloxone 0.4 Mg/Ml 1 Ml Vial IV Q2M PRN Opioid Reversal Ondansetron HCl 4 mg 03/01/22 10:30 03/04/22 02:58 Ondansetron 4 Mg/2 Ml Vial IVP 4 mg Q6HR PRN Administration Nausea And Vomiting Pantoprazole Sodium 40 mg 03/01/22 09:00 03/03/22 07:46 Pantoprazole 40 Mg/10 Ml Vial IV 40 mg DAILY JOHNY Administration Potassium Chloride 40 meq 03/04/22 08:00 Potassium Chloride Er 20 Meq Tab.Er PO 03/04/22 10:01 Q2HR JOHNY Sertraline HCl 150 mg 03/02/22 09:00 03/03/22 07:44 Sertraline 50 Mg Tab PO 150 mg DAILY JOHNY Administration Timolol Maleate 1 drops 03/02/22 09:00 03/03/22 08:15 Timolol 0.5% Ophth Drops 5 Ml Btl BOTH EYES 1 drops DAILY JOHNY Administration Intake and Output 03/03/22 03/04/22 03/04/22 22:59 06:59 14:59 Output Total 800 425 Balance -800 -425 Output: Urine 800 425 Other: Voiding Method Indwelling Catheter 03/02/22 06:49 03/04/22 06:07
[2022-03-04 09:25] LABS: Basophils # (A) 0.1 k/uL (0-0.2); Basophils % (A) 1 %; Eosinophils # (A) 0.2 k/uL (0-0.7); Eosinophils % (A) 1 %; HCT 37.7 % (34.0-46.0); HGB 11.7 gm/dL (11.4-16.0); Hypochromasia Marked; Lymphocytes % (A) 13 %; MCH 30.3 pg (25.0-35.0); MCHC 30.9 g/dL (31.0-37.0); Mean Platelet Volume 12.6; Monocytes % (A) 6 %; Neutrophils # (A) 11.5 k/uL (1.3-7.7); Neutrophils % (A) 77 %; Platelet Count 249 k/uL (150-450); RBC 3.84 m/uL (3.80-5.40); RDW 13.2 % (11.5-15.5); WBC 14.9 k/uL (3.8-10.6)
[2022-03-04] MEDS: ACETAMINOPHEN IV (For NPO) 1,000 MG in EMPTY BAG 1 BAG IVPB SCH ×3 (10:24→22:55)
[2022-03-04] MEDS: SERTRALINE 50 MG TAB PO SCH (10:24)
[2022-03-04] MEDS: PANTOPRAZOLE 40 MG/10 ML VIAL IV SCH (10:24)
[2022-03-04] MEDS: DILTIAZEM ORAL 60 MG TAB PO SCH ×3 (10:25→22:55)
[2022-03-04] MEDS: LOSARTAN 50 MG TAB PO SCH (10:25)
[2022-03-04] MEDS: ENOXAPARIN 80 MG/0.8 ML SYRINGE SQ SCH (10:25)
[2022-03-04] MEDS: clonazePAM 1 MG TAB PO SCH ×2 (10:25→20:55)
[2022-03-04] MEDS: METOPROLOL TARTRATE 25 MG TAB PO SCH ×2 (10:25→20:55)
[2022-03-04] MEDS: POTASSIUM BICARBONATE/CIT AC 20 MEQ TABLET.EFF PO SCH ×2 (10:27→12:59)
[2022-03-04 12:17] LABS: Glucose,Whole Blood 142 mg/dL (70-110)
[2022-03-04] MEDS: TIMOLOL 0.5% OPHTH DROPS 5 ML BTL BOTH EYES SCH (12:58)
[2022-03-04] MEDS: DORZOLAMIDE HCL 2% DROPS 10 ML BTL BOTH EYES SCH ×2 (12:59→20:56)
[2022-03-04] MEDS: SODIUM CHLORIDE 0.9% 1,000 ML IV SCH ×2 (13:00→22:53)
--- NOTE | 2022-03-04 14:57 | P.PN ---
Subjective Progress Note Date: 03/04/22 CHIEF COMPLAINT: Abdominal pain HISTORY OF PRESENT ILLNESS: Patient hospitalized with a partial small bowel obstruction. Last night patient went into atrial flutter with rapid ventricular response. Cardiology consulted. They've adjusted medications. Patient's heart rate has improved. NG tube 350 ML bilious output this morning. Patient reports having flatus. Denies any bowel movements. Reports decreased abdominal pain. She remains nothing by mouth. Afebrile. WBC is 13.1 up to 14.2 Hgb 11.7 platelets 249 sodium is 142 potassium is 2.8 creatinine 0.81 PHYSICAL EXAM: VITAL SIGNS: Reviewed. GENERAL: Well-developed in no acute distress. HEENT: No sclera icterus. Extraocular movements grossly intact. Moist buccal mucosa. Head is atraumatic, normocephalic. ABDOMEN: Soft. Mildly distended. Diffuse tenderness NEUROLOGIC: Alert and oriented. Cranial nerves II through XII grossly intact. ASSESSMENT: 1. Partial small bowel obstruction 2. Hypokalemia PLAN: -Discontinue NG tube -Keep patient nothing by mouth -Potassium placed. Repeat labs in a.m. -Continue to hold Xarelto in case patient requires surgical intervention -Encouraged patient to increase activity level -IV Tylenol added for pain control Physician Road Test Examiner note has been reviewed by physician. Signing provider agrees with the documented findings, assessment, and plan of care. Objective - Vital Signs Vital signs: Vital Signs Temp 99.1 F 03/04/22 07:18 Pulse 64 03/04/22 11:20 Resp 17 03/04/22 07:18 BP 172/70 03/04/22 07:18 Pulse Ox 91 L 03/04/22 07:18 FiO2 Intake & Output 03/03/22 03/04/22 03/04/22 18:59 06:59 18:59 Output Total 800 425 Balance -800 -425 Output: Urine 800 425 Other: Voiding Method Indwelling Catheter Indwelling Catheter Indwelling Catheter - Labs CBC & Chem 7: 03/04/22 06:07 03/04/22 06:07 Labs: Abnormal Lab Results - Last 24 Hours (Table) 03/03/22 03/04/22 03/04/22 Range/Units 20:30 06:07 06:07 WBC 14.9 H (3.8-10.6) k/uL MCHC 30.9 L (31.0-37.0) g/dL Neutrophils # 11.5 H (1.3-7.7) k/uL Potassium 2.8 L (3.5-5.1) mmol/L Carbon Dioxide 34 H (22-30) mmol/L BUN 19 H (7-17) mg/dL Glucose 112 H (74-99) mg/dL POC Glucose (mg/dL) 119 H (70-110) mg/dL 03/04/22 03/04/22 Range/Units 06:24 12:14 WBC (3.8-10.6) k/uL MCHC (31.0-37.0) g/dL Neutrophils # (1.3-7.7) k/uL Potassium (3.5-5.1) mmol/L Carbon Dioxide (22-30) mmol/L BUN (7-17) mg/dL Glucose (74-99) mg/dL POC Glucose (mg/dL) 123 H 142 H (70-110) mg/dL Microbiology - Last 24 Hours (Table) 03/01/22 22:30 Urine Culture - Final Urine,Voided
[2022-03-04 16:49] LABS: Glucose,Whole Blood 115 mg/dL (70-110)
[2022-03-04] MEDS ORDERED: RIVAROXABAN 20 MG TAB PO SCH (17:30)
--- NOTE | 2022-03-04 17:37 | P.PN ---
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 At her baseline uses a walker, but goes outside.. Patient is 3 weeks been having trouble with constipation. Has gone to her PCP trying different laxatives. Decreased appetite. Patient's had previous abdominal surgery with 3 abdominal hernias and a mesh placement has been told to have any further surgeries. Yesterday started out with increasing abdominal pain rather severe. Dry heaving. No fever no chills. Admitted with partial small bowel obstruction. NG tube placed. 03/02/2022: NG tube to suction continues. Decreased abdominal pain. No factors. No BM. IV fluids. Nothing by mouth. 03/03/2022: NG tube suction continues. Had some epistaxis earlier. We'll put local ointment. Patient earlier this month had epistaxis with cauterization. Has passed some flatus. No BM. 03/04/2022: NG tube to suction continues. No flatus. In bed. No nausea vomiting. Patient went into atrial flutter fibrillation uncontrolled. Cardizem increased to 60 mg 2 times a day. Continue IV cefepime IV Flagyl. Active Medications Albuterol/Ipratropium (Ipratropium-Albuterol 3 Ml Neb) 3 ml INHALATION RT-TID [facility] Last Admin: 03/04/22 11:12 Dose: 3 ml Clonazepam (Clonazepam 1 Mg Tab) 1 mg PO BID [facility] Last Admin: 03/04/22 10:25 Dose: 1 mg Diltiazem HCl (Diltiazem Oral 60 Mg Tab) 60 mg PO TID [facility] Last Admin: 03/04/22 16:10 Dose: 60 mg Dorzolamide HCl (Dorzolamide Hcl 2% Drops 10 Ml Btl) 1 drops BOTH EYES BID [facility] Last Admin: 03/04/22 12:59 Dose: 1 drops Hydromorphone HCl (Hydromorphone 0.5 Mg/0.5 Ml Syringe) 0.5 mg IVP Q3HR PRN PRN Reason: Moderate Pain (Scale 4 to 6) Last Admin: 03/04/22 10:18 Dose: 0.5 mg Hydromorphone HCl (Hydromorphone 1 Mg/Ml 1 Ml Syringe) 1 mg IVP Q3HR PRN PRN Reason: Severe Pain (Scale 7 to 10) Last Admin: 03/03/22 05:05 Dose: 1 mg Metronidazole 500 mg/ IV (Solution) 100 mls @ 100 mls/hr IVPB Q8H [facility]; Protocol Last Admin: 03/04/22 10:27 Dose: 100 mls/hr Cefepime HCl 2 gm/ Sodium (Chloride) 100 mls @ 200 mls/hr IVPB Q12H [facility]; Protocol Last Admin: 03/04/22 16:10 Dose: 200 mls/hr Sodium Chloride (Saline 0.9%) 1,000 mls @ 75 mls/hr IV .[id number] [facility] Last Admin: 03/04/22 13:00 Dose: Not Given Acetaminophen 1,000 mg/ IV (Solution) 100 mls @ 400 mls/hr IVPB Q6H [facility] Stop: 03/05/22 04:14 Last Admin: 03/04/22 16:10 Dose: 400 mls/hr Insulin Aspart (Insulin Aspart (Novolog) 100 Unit/Ml Vial) 0 unit SQ ACHS [facility]; Protocol Last Admin: 03/04/22 13:01 Dose: Not Given Latanoprost (Latanoprost 0.005% Ophth Drops 2.5 Ml Btl) 1 drops BOTH EYES HS [facility] Last Admin: 03/03/22 20:26 Dose: 1 drops Lorazepam (Lorazepam 2 Mg/Ml Inj) 0.5 mg IV Q6HR PRN PRN Reason: Anxiety Last Admin: 03/03/22 12:45 Dose: 0.5 mg Losartan Potassium (Losartan 50 Mg Tab) 50 mg PO DAILY [facility] Last Admin: 03/04/22 10:25 Dose: 50 mg Metoprolol Tartrate (Metoprolol Tartrate 25 Mg Tab) 25 mg PO BID [facility] Last Admin: 03/04/22 10:25 Dose: 25 mg Naloxone HCl (Naloxone 0.4 Mg/Ml 1 Ml Vial) 0.2 mg IV Q2M PRN PRN Reason: Opioid Reversal Ondansetron HCl (Ondansetron 4 Mg/2 Ml Vial) 4 mg IVP Q6HR PRN PRN Reason: Nausea And Vomiting Last Admin: 03/04/22 02:58 Dose: 4 mg Pantoprazole Sodium (Pantoprazole 40 Mg/10 Ml Vial) 40 mg IV DAILY [facility] Last Admin: 03/04/22 10:24 Dose: 40 mg Sertraline HCl (Sertraline 50 Mg Tab) 150 mg PO DAILY [facility] Last Admin: 03/04/22 10:24 Dose: 150 mg Timolol Maleate (Timolol 0.5% Ophth Drops 5 Ml Btl) 1 drops BOTH EYES DAILY [facility] Last Admin: 03/04/22 12:58 Dose: 1 drops Past medical history to include: Home oxygen, right diaphragm paralysis, moderate persistent asthma, moderate secondary pulmonary hypertension, M.D. HF are gene mutation on xarelto, chronic pulmonary embolism and DVT, chronic abdominal wall hernia, hypertension, paroxysmal atrial fibrillation, Social history: Lives alone in the seated apartment. Home oxygen 2 L. Walker. No history of smoking or alcohol Family history: CAD. On examination: VITAL SIGNS: 99.1, 62, 17, 1 72 x 70, 91% on 3 L GENERAL APPEARANCE: Reclining in bed, not in distress HEENT: Normal external appearance of nose and ear. Oral cavity dry. NG tube to suction EYES: Pupils equal. Conjunctiva normal. NECK: JVD not raised. Mass not palpable. RESPIRATORY: Respiratory effort increased. Lungs decreased breath sounds CARDIOVASCULAR: Heart sounds irregular No edema. ABDOMEN: Soft. Mild Tender, no guarding rigidity, abdominal wall hernia, it was not palpable, hyperactive bowel sounds MUSCULAR skeletal: Evidence of OA in several joints NEUROLOGICAL: Cranial nerves grossly intact. Poor sensation grossly intact.. PSYCHIATRY: Alert and oriented x3. Mood and affect anxious INVESTIGATIONS, reviewed in the clinical context: 03/04/2022: Obesity 14.9 hemoglobin 11.7 potassium 2.8 BUN 19 creatinine 0.81 03/02/2022: White count 13.1 hemoglobin 12.7 platelets 280 White count 18 hemoglobin 13.5 platelets 280 sodium 144 percussion 3.6 creatinine 0.86 Troponin I 0.066 EKG tracing personally reviewed by me-normal sinus rhythm. Rate 69 Chest x-ray film personally reviewed by me-expiratory. Some diaphragm elevation. CT abdomen and pelvis without contrast: Hernia unchanged. Dilated small bowel with fluid levels consistent with partial mechanical small bowel obstruction. [place] to be new 2020: Cardiac catheterization: Minimal plaque in the proximal LAD. Severely tortuous coronary arteries. 2-D echocardiogram: EF 55-60%. [id number] mitral regurgitation Assessment and plan: -Acute partial small bowel obstruction. : Not improving NG tube to suction. Empirically on IV Flagyl and IV cefepime. -Moderate persistent asthma DuoNeb 4 times a day. -Moderate secondary pulmonary hypertension secondary to possibly asthma -MTHFR gene mutation hOld xarelto. Subcu Lovenox 80 mg every 12 -Chronic pulmonary embolism and DVT patient Hold xarelto. Lovenox -Chronic hypoxic respiratory failure on home oxygen 2 L, from right diaphragm paralysis and asthma Supplement oxygen -Chronic abdominal wall hernia, with prior 3 repairs with mesh -Essential hypertension Cardizem 30 mg 3 times a day , Cozaar 50 mg daily -Paroxysmal atrial fibrillation, went into rapid ventricular rate. On xarelto currently on Lovenox. Increased Cardizem 60 mg 3 times a day. Seen by cardiology. 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 -Anxiety depression Zoloft 150 mg a day -Chronic gait dysfunction Uses a walker at her baseline Continue NG tube to suction. Oral medications through a G-tube. Subcu Lovenox. DuoNeb. Topical nasal ointment for prevention of epistaxis. Cardizem increased by cardiology to 60 mg 3 times a day.
--- NOTE | 2022-03-04 19:01 | P.PN ---
Subjective Progress Note Date: 03/04/22 81-year-old female patient who has been hospitalized with abdominal pain and bowel obstruction. Patient is also known to have COPD and chronic respiratory insufficiency. For now, the patient has NG tube in place. NG tube is to suction the patient is no flatness. No nausea or emesis. Abdomen is slightly distended. The patient remains on IV cefepime and Flagyl. The patient did go into atrial fibrillation with rapid ventricular response and the patient is being seen by cardiology and the patient is currently on oral Cardizem and Lovenox. The patient's heart is improved. NG tube is in place. There is a total of 350 cc of bilious output this am The patient has known history of chronic bronchial asthma with COPD in addition to right diaphragmatic paralysis. The patient is obese and has chronic hypoxic respiratory failure maintained on oxygen at 2 L/m nasal Cannula. Labs from today, the white cell count is 14.9, BUN is at 19 with a creatinine of 0.8 and a sodium level of 142 Objective - Vital Signs Vital signs: Vital Signs Temp 99.1 F 03/04/22 07:18 Pulse 64 03/04/22 11:20 Resp 17 03/04/22 07:18 BP 172/70 03/04/22 07:18 Pulse Ox 91 L 03/04/22 07:18 FiO2 Intake & Output 03/03/22 03/04/22 03/04/22 18:59 06:59 18:59 Output Total 800 425 Balance -800 -425 Output: Urine 800 425 Other: Voiding Method Indwelling Catheter Indwelling Catheter Indwelling Catheter - Exam No acute distress, oriented 3. The patient is a bit sleepy, but does arouse. Nasal O2 noted. In addition, the patient has an NG tube in place , on 3 liters [place] HEENT examination is grossly unremarkable. Neck supple. Full range of motion. No adenopathy thyromegaly or neck vein distention. Cardiovascular examination reveals regular rhythm rate. S1-S2 normal. No S3 or S4. No discernible murmur noted. Heart rate 76 bpm. Lungs reveal mostly clear breath sounds. Scattered rhonchi are noted. No wheezes or crackles. Abdomen soft, without tenderness or mass. Extremities are intact. No cyanosis clubbing or edema. Skin is without rash or lesion. Neurologic examination is brief but nonfocal. - Labs CBC & Chem 7: 03/04/22 06:07 03/04/22 06:07 Labs: Abnormal Lab Results - Last 24 Hours (Table) 03/03/22 03/04/22 03/04/22 Range/Units 20:30 06:07 06:07 WBC 14.9 H (3.8-10.6) k/uL MCHC 30.9 L (31.0-37.0) g/dL Neutrophils # 11.5 H (1.3-7.7) k/uL Potassium 2.8 L (3.5-5.1) mmol/L Carbon Dioxide 34 H (22-30) mmol/L BUN 19 H (7-17) mg/dL Glucose 112 H (74-99) mg/dL POC Glucose (mg/dL) 119 H (70-110) mg/dL 03/04/22 03/04/22 Range/Units 06:24 12:14 WBC (3.8-10.6) k/uL MCHC (31.0-37.0) g/dL Neutrophils # (1.3-7.7) k/uL Potassium (3.5-5.1) mmol/L Carbon Dioxide (22-30) mmol/L BUN (7-17) mg/dL Glucose (74-99) mg/dL POC Glucose (mg/dL) 123 H 142 H (70-110) mg/dL Microbiology - Last 24 Hours (Table) 03/01/22 22:30 Urine Culture - Final Urine,Voided Assessment and Plan Plan: Abdominal pain, and constipation, related to a partial small bowel obstruction.NGT is still in place and output was noted and gen surgery is on the case History of chronic hypoxemic respiratory failure, secondary to COPD, and diaphragm dysfunction. History of hyperlipidemia. History of atrial fibrillation. History of diabetes mellitus. History of deep venous thrombosis and pulmonary embolism. History of GERD. History of MTHFR gene mutation. Multiple other medical problems and comorbidities. Plan: Continue bowel rest NG tube Monitor output Continue same antibiotics Respiratory status is stable We'll follow
[2022-03-04 19:52] LABS: Glucose,Whole Blood 127 mg/dL (70-110)
[2022-03-04] MEDS: LATANOPROST 0.005% OPHTH DROPS 2.5 ML BTL BOTH EYES SCH (20:56)
[2022-03-05] MEDS: metroNIDAZOLE-NS PMX 500 MG in SALINE 1 100ML.BAG IVPB SCH ×3 (02:49→17:16)
[2022-03-05] MEDS: CEFEPIME 2 GM in SODIUM CHLORIDE 0.9% 100 ML IVPB SCH ×2 (04:07→16:35)
[2022-03-05] MEDS: ACETAMINOPHEN IV (For NPO) 1,000 MG in EMPTY BAG 1 BAG IVPB SCH (04:47)
[2022-03-05 06:03] LABS: Glucose,Whole Blood 115 mg/dL (70-110)
[2022-03-05] MEDS: INSULIN ASPART (NovoLOG) 100 UNIT/ML VIAL SQ SCH ×4 (06:17→21:12)
[2022-03-05] MEDS: IPRATROPIUM-ALBUTEROL 3 ML NEB INHALATION SCH ×3 (08:24→21:15)
[2022-03-05] MEDS: DILTIAZEM ORAL 60 MG TAB PO SCH ×3 (08:35→21:26)
[2022-03-05] MEDS: clonazePAM 1 MG TAB PO SCH ×2 (08:35→21:26)
[2022-03-05] MEDS: DORZOLAMIDE HCL 2% DROPS 10 ML BTL BOTH EYES SCH ×2 (08:36→21:26)
[2022-03-05] MEDS: SERTRALINE 50 MG TAB PO SCH (08:36)
[2022-03-05] MEDS: METOPROLOL TARTRATE 25 MG TAB PO SCH ×2 (08:36→21:26)
[2022-03-05] MEDS: PANTOPRAZOLE 40 MG/10 ML VIAL IV SCH (08:36)
[2022-03-05] MEDS: LOSARTAN 50 MG TAB PO SCH (08:36)
[2022-03-05] MEDS: TIMOLOL 0.5% OPHTH DROPS 5 ML BTL BOTH EYES SCH (08:37)
[2022-03-05 09:07] LABS: Basophils # (A) 0.1 k/uL (0-0.2); Basophils % (A) 1 %; Eosinophils # (A) 0.3 k/uL (0-0.7); Eosinophils % (A) 3 %; HCT 36.7 % (34.0-46.0); HGB 11.2 gm/dL (11.4-16.0); Hypochromasia Marked; Lymphocytes # (A) 1.8 k/uL (1.0-4.8); Lymphocytes % (A) 17 %; MCH 29.5 pg (25.0-35.0); MCHC 30.6 g/dL (31.0-37.0); MCV 96.5 fL (80.0-100.0); Mean Platelet Volume 12.6; Monocytes # (A) 0.6 k/uL (0-1.0); Monocytes % (A) 5 %; Neutrophils # (A) 8.1 k/uL (1.3-7.7); Neutrophils % (A) 74 %; Platelet Count 239 k/uL (150-450); RBC 3.81 m/uL (3.80-5.40); RDW 13.4 % (11.5-15.5)
[2022-03-05] MEDS: SODIUM CHLORIDE 0.9% 1,000 ML IV SCH (10:53)
[2022-03-05 11:08] LABS: African American GFR (CKD) 99.4 (60.0-200.0); Anion Gap 8.5 mmol/L (10.00-18.00); BUN/Creat Ratio 41.52 Ratio (12.00-20.00); Blood Urea Nitrogen 25.2 mg/dL (9.0-27.0); Calcium 9.5 mg/dL (8.7-10.3); Carbon Dioxide 31.5 mmol/L (20.0-27.5); Non-African American GFR(CKD) 85.8 (60.0-200.0); Potassium 3.6 mmol/L (3.5-5.5)
--- NOTE | 2022-03-05 11:41 | P.PN ---
Subjective Progress Note Date: 03/05/22 HISTORY OF PRESENT ILLNESS: This is an 81-year-old female patient of Dr. Rivera with a past medical history significant for COPD with chronic hypoxic respiratory failure on home O2, pa roxysmal atrial fibrillation, moderate aortic regurgitation, hypertension, and hyperlipidemia. We have been asked to see the patient in consultation for atrial flutter. Patient examined at the bedside. Patient presented to the hospital with a chief complaint of constipation secondary to partial small bowel obstruction. Last evening, patient developed irregular heartbeat running between 115 140. EKG was obtained which revealed atypical atrial flutter and thus a cardiology consult was placed. Patient is asymptomatic. She is currently on subcu Lovenox. There is no plan for surgical intervention. EKG from 03/01 reveals sinus bradycardia at 69 bpm, no acute ischemic changes. Repeat EKG from 03/03 reveals atypical atrial flutter Chest xray revealed bibasilar opacities suggesting worsening atelectasis and/or acute infiltrate. Laboratory data: WBC 13.1, hemoglobin 12.7, platelet count 280. Potassium 2.8, CO2 34, BUN 19 and creatinine 0.8. Troponin 0.066. Potassium replacement has been ordered of 80 mEq by general surgery. Current home cardiac medications include atorvastatin 10 mg with supper, [place] 25 mg daily, Cardizem 30 mg 3 times daily, losartan 59 g daily, Xarelto 20 mg with supper Most recent echocardiogram obtained in October 2020 revealed normal LV systolic function with [id number] mitral regurgitation, mild tricuspid, mild aortic regurgitation Cardiac catheterization history: October 2020 revealed minimal plaque in the proximal LAD, severely tortuous coronary arteries, right dominance 03/05 Patient does not have NG tube and but is nothing by mouth with plan to start full liquid diet for lunch today. Recommend patient be resumed on Xarelto once cleared by general surgery. Patient denies having any chest pain or shortness of breath. groundwater monitoring technician has been a sinus rhythm. REVIEW OF SYSTEMS: At the time of my exam: CONSTITUTIONAL: Denies fever or chills. HEENT: Denies blurred vision, vision changes, or eye pain. Denies hemoptysis CARDIOVASCULAR: Denies chest pain. Denies orthopnea. Denies PND. Denies palpit ations RESPIRATORY: Denies shortness of breath. GASTROINTESTINAL: Reports abdominal pain. Denies nausea or vomiting. HEMATOLOGIC: Denies bleeding disorders. GENITOURINARY: Denies any blood in urine. SKIN: Denies pruitis. Denies rash. PHYSICAL EXAM: VITAL SIGNS: Reviewed. GENERAL: Well-developed in no acute distress. HEENT: Head is normocephalic. Pupils are equal, round. Sclerae anicteric. Mucous membranes of the mouth are moist. Neck supple. No JVD or thyromegaly LUNGS: Respirations even and unlabored. Lungs bilateral expiratory wheeze bilaterally. HEART: Regular rate and rhythm. S1 and S2 heard. Diastolic murmur noted ABDOMEN: Soft. Nondistended. Nontender. EXTREMITIES: Normal range of motion. No clubbing or cyanosis. Peripheral pulses intact. No lower extremity edema NEUROLOGIC: Awake and alert. Oriented x 3. ASSESSMENT: Atypical atrial flutter Paroxysmal atrial fibrillation, on anticoagulation with Xarelto, currently in sinus rhythm Partial small bowel obstruction COPD with chronic hypoxic respiratory failure Mild aortic regurgitation Hypertension Hyperlipidemia PLAN: Resume patient on Xarelto once cleared by general surgery Continue patient on Cardizem at increased dose of 60 mg 3 times daily, patient continued on Lopressor 25 mg twice daily Continue blood pressure medications Further recommendations pending patient's course Nurse practitioner note has been reviewed by physician. Signing provider agrees with the documented findings, assessment, and plan of care. Objective - Vital Signs Vital signs: Vital Signs Temp 98.7 F 03/05/22 02:00 Pulse 78 03/05/22 08:37 Resp 15 03/05/22 02:00 BP 173/61 03/05/22 02:00 Pulse Ox 97 03/05/22 02:00 FiO2 Intake & Output 03/04/22 03/05/22 03/05/22 18:59 06:59 18:59 Intake Total 1300 Output Total 700 875 Balance -700 425 Intake: Intake, IV Titration 1300 Amount ACETAMINOPHEN IV (For NPO 200 ) 1,000 mg In Empty Bag 1 bag @ 400 mls/hr IVPB Q6H [facility] Rx#:[id number] Cefepime 2 gm In Sodium 100 Chloride 0.9% 100 ml @ 200 mls/hr IVPB Q12H [facility] Rx#:[id number] Sodium Chloride 0.9% 1, 900 000 ml @ 75 mls/hr IV . [id number] [facility] Rx#:[id number]-NS PMX 500 100 mg In Saline 1 100ml.bag @ 100 mls/hr IVPB Q8H [facility] Rx#:[id number] Output: Urine 700 875 Other: Voiding Method Indwelling Catheter Indwelling Catheter - Labs CBC & Chem 7: 03/05/22 07:53 03/05/22 07:53 Labs: Abnormal Lab Results - Last 24 Hours (Table) 03/04/22 03/04/22 03/04/22 Range/Units 06:07 12:14 16:48 WBC 14.9 H (3.8-10.6) k/uL MCHC 30.9 L (31.0-37.0) g/dL Neutrophils # 11.5 H (1.3-7.7) k/uL POC Glucose (mg/dL) 142 H 115 H (70-110) mg/dL 03/04/22 03/05/22 Range/Units 19:50 06:02 WBC (3.8-10.6) k/uL MCHC (31.0-37.0) g/dL Neutrophils # (1.3-7.7) k/uL POC Glucose (mg/dL) 127 H 115 H (70-110) mg/dL
[2022-03-05 12:06] LABS: Glucose,Whole Blood 114 mg/dL (70-110)
--- NOTE | 2022-03-05 14:24 | P.PN ---
Subjective Progress Note Date: 03/05/22 81-year-old female who presents to the emergency department, on March 01, complaining of abdominal pain. The patient's abdominal pain apparently developed about 24 hours prior to admission. More recently, she has been constipated, and she's been trying a number different things to relieve her constipation. The patient was seen in the ER, and also seen by surgery in the ER. I was asked to see her for preoperative clearance. The daughter, who I spoke with, would prefer not putting her mother to any surgery. For the patient, and the patient's daughter, surgery would be the last resort we had so me sort of procedure a couple years at [facility], and almost . The patient also sees my partner in the office, for some chronic hypoxemic respiratory failure, and diaphragm dysfunction. She is a lifelong nonsmoker, and does have evidence of COPD on PFTs, with an FEV1 percent at 63. She does use oxygen at 2 L, 24/7. Currently, she is getting saline at 75 mL an hour. There is an NG tube in place. White count 18, hemoglobin 13.5, hematocrit 42.6, and platelet count 280,000. Sodium 144, potassium 3.6, chlorides 101, CO2 36, BUN 14, and creatinine 0.86. Troponin was 0.066. CT of the abdomen and pelvis showed dilated small bowel with air-fluid levels consistent with partial mechanical small bowel obstruction. In addition, there is infiltrate and atelectasis at both lung bases. Finally, there is a broad-based lower abdominal ventral hernia. Chest x-rays consistent with low lung volumes, basilar atelectasis, or infiltrate, and elevated diaphragms. The patient is seen today 03/02/2022 in follow-up on the regular medical floor. She is resting comfortably in bed. Awake and alert in no acute distress. She is maintaining O2 saturations in the 90s on 3 L/m per nasal cannula. Denies any significant abdominal discomfort. Nasogastric tube remains in place. Normal saline at 75 ML's per hour. White count 13.1. Hemoglobin 12.7. She remains on cefepime and Flagyl. Continue bronchodilators. The patient is seen today 03/05/2022 in follow-up on the regular medical floor. She is resting comfortably in bed. Awake and alert in no acute distress. Her nasogastric tube has been removed. The plan is to initiate clear liquid diet. Urine culture reveals no growth. White count 11.0. Hemoglobin 11.2. Sodium 147. Potassium 3.6. BUN 25. Creatinine 0.6. Glucose 122. She is continued on antibiotics in the form of cefepime and Flagyl. Continued on [place] [place] hodilators. Objective - Vital Signs Vital signs: Vital Signs Temp 98.5 F 03/05/22 08:00 Pulse 49 L 03/05/22 11:45 Resp 16 03/05/22 08:00 BP 179/62 03/05/22 08:00 Pulse Ox 97 03/05/22 08:25 FiO2 Intake & Output 03/04/22 03/05/22 03/05/22 18:59 06:59 18:59 Intake Total 1300 Output Total 700 875 Balance -700 425 Intake: Intake, IV Titration 1300 Amount ACETAMINOPHEN IV (For NPO 200 ) 1,000 mg In Empty Bag 1 bag @ 400 mls/hr IVPB Q6H [facility] Rx#:[id number] Cefepime 2 gm In Sodium 100 Chloride 0.9% 100 ml @ 200 mls/hr IVPB Q12H [facility] Rx#:[id number] Sodium Chloride 0.9% 1, 900 000 ml @ 75 mls/hr IV . [id number] [facility] Rx#:[id number] metroNIDAZOLE-NS PMX 500 100 mg In Saline 1 100ml.bag @ 100 mls/hr IVPB Q8H [facility] Rx#:[id number] Output: Urine 700 875 Other: Voiding Method Indwelling Catheter Indwelling Catheter Indwelling Catheter - Exam GENERAL EXAM: Alert, pleasant 81-year-old female, on 2 L nasal cannula, fairly comfortable in no apparent distress. HEAD: Normocephalic. EYES: Normal reaction of pupils, equal size. NOSE: Nasogastric tube secured in place. Clear with pink turbinates. THROAT: No erythema or exudates. NECK: No masses, no JVD. CHEST: No chest wall deformity. LUNGS: Equal air entry with few scattered rhonchi. CVS: S1 and S2 normal with no audible murmur, regular rhythm. ABDOMEN: Soft. Incisional hernia. No hepatosplenomegaly, hypoactive bowel sounds, no guarding or rigidity. SPINE: No scoliosis or deformity SKIN: No rashes CENTRAL NERVOUS SYSTEM: No focal deficits, tone is normal in all 4 extremities. EXTREMITIES: There is no peripheral edema. No clubbing, no cyanosis. Perip heral pulses are intact. - Labs CBC & Chem 7: 03/05/22 07:53 03/05/22 07:53 Labs: Abnormal Lab Results - Last 24 Hours (Table) 03/04/22 03/04/22 03/05/22 Range/Units 16:48 19:50 06:02 WBC (3.8-10.6) k/uL Hgb (11.4-16.0) gm/dL MCHC (31.0-37.0) g/dL Neutrophils # (1.3-7.7) k/uL Sodium (135-145) mmol/L Carbon Dioxide (20.0-27.5) mmol/L Anion Gap (10.00-18.00) mmol/L BUN/Creatinine Ratio (12.00-20.00) Ratio Glucose (70-110) mg/dL POC Glucose (mg/dL) 115 H 127 H 115 H (70-110) mg/dL 03/05/22 03/05/22 03/05/22 Range/Units 07:53 07:53 12:05 WBC 11.0 H (3.8-10.6) k/uL Hgb 11.2 L (11.4-16.0) gm/dL MCHC 30.6 L (31.0-37.0) g/dL Neutrophils # 8.1 H (1.3-7.7) k/uL Sodium 147 H (135-145) mmol/L Carbon Dioxide 31.5 H (20.0-27.5) mmol/L Anion Gap 8.50 L (10.00-18.00) mmol/L BUN/Creatinine Ratio 41.52 H (12.00-20.00) Ratio Glucose 122 H (70-110) mg/dL POC Glucose (mg/dL) 114 H (70-110) mg/dL Assessment and Plan Assessment: Abdominal pain, and constipation, related to a partial small bowel obstruction. Nasogastric tube is been removed, to start clear liquids. History of chronic hypoxemic respiratory failure, secondary to COPD, and diaphragm dysfunction. History of hyperlipidemia. History of atrial fibrillation. History of diabetes mellitus. History of deep venous thrombosis and pulmonary embolism. History of GERD. History of MTHFR gene mutation. Multiple other medical problems and comorbidities. Plan: The patient was seen and evaluated Medications and labs reviewed Continue on cefepime and Flagyl We will continue to follow I have personally seen and examined the patient, performed the documentation and the assessment and plan as written. Number of minutes spent on the visit: 10. Joint evaluation that was done along with the nurse practitioner. Again the above-mentioned plan. Evaluation was done in more than 20 minutes
[2022-03-05] MEDS ORDERED: ACETAMINOPHEN TAB 325 MG TAB PO PRN (14:36)
--- NOTE | 2022-03-05 14:38 | P.PN ---
Subjective Progress Note Date: 03/05/22 CHIEF COMPLAINT: Abdominal pain HISTORY OF PRESENT ILLNESS: Patient hospitalized with a partial small bowel obstruction. Patient reports having flatus. She reports decrease in abdominal pain and nausea. No bowel movement yet. Afebrile. She is followed by cardiology and pulmonary service. Afebrile WBC is down from 14.9-11 Hgb 11.2 platelets 239 sodium is 147 potassium 3.6 Patient seen and examined with Dr. cottrell PHYSICAL EXAM: VITAL SIGNS: Reviewed. GENERAL: Well-developed in no acute distress. HEENT: No sclera icterus. Extraocular movements grossly intact. Moist buccal mucosa. Head is atraumatic, normocephalic. ABDOMEN: Soft. Mildly distended. Nontender NEUROLOGIC: Alert and oriented. Cranial nerves II through XII grossly intact. ASSESSMENT: 1. Partial small bowel obstruction improving 2. Hypokalemia PLAN: -Start full liquid diet -Encouraged patient to ambulate -Consult PT OT -Consult social work for possible ECF placement -Continue to hold Xarelto in case patient requires surgical intervention -Encouraged patient to increase activity level -Tylenol added as needed for pain -Subcu heparin added for DVT prophylaxis Physician Faucet Polisher note has been reviewed by physician. Signing provider agrees with the documented findings, assessment, and plan of care. Objective - Vital Signs Vital signs: Vital Signs Temp 98.5 F 03/05/22 08:00 Pulse 49 L 03/05/22 11:45 Resp 16 03/05/22 08:00 BP 179/62 03/05/22 08:00 Pulse Ox 97 03/05/22 08:25 FiO2 Intake & Output 03/04/22 03/05/22 03/05/22 18:59 06:59 18:59 Intake Total 1300 Output Total 700 875 Balance -700 425 Intake: Intake, IV Titration 1300 Amount ACETAMINOPHEN IV (For NPO 200 ) 1,000 mg In Empty Bag 1 bag @ 400 mls/hr IVPB Q6H [facility] Rx#:[id number] Cefepime 2 gm In Sodium 100 Chloride 0.9% 100 ml @ 200 mls/hr IVPB Q12H [facility] Rx#:[id number] Sodium Chloride 0.9% 1, 900 000 ml @ 75 mls/hr IV . [id number] [facility] Rx#:[id number] metroNIDAZOLE-NS PMX 500 100 mg In Saline 1 100ml.bag @ 100 mls/hr IVPB Q8H [facility] Rx#:[id number] Output: Urine 700 875 Other: Voiding Method Indwelling Catheter Indwelling Catheter Indwelling Catheter - Labs CBC & Chem 7: 03/05/22 07:53 03/05/22 07:53 Labs: Abnormal Lab Results - Last 24 Hours (Table) 03/04/22 03/04/22 03/05/22 Range/Units 16:48 19:50 06:02 WBC (3.8-10.6) k/uL Hgb (11.4-16.0) gm/dL MCHC (31.0-37.0) g/dL Neutrophils # (1.3-7.7) k/uL Sodium (135-145) mmol/L Carbon Dioxide (20.0-27.5) mmol/L Anion Gap (10.00-18.00) mmol/L BUN/Creatinine Ratio (12.00-20.00) Ratio Glucose (70-110) mg/dL POC Glucose (mg/dL) 115 H 127 H 115 H (70-110) mg/dL 03/05/22 03/05/22 03/05/22 Range/Units 07:53 07:53 12:05 WBC 11.0 H (3.8-10.6) k/uL Hgb 11.2 L (11.4-16.0) gm/dL MCHC 30.6 L (31.0-37.0) g/dL Neutrophils # 8.1 H (1.3-7.7) k/uL Sodium 147 H (135-145) mmol/L Carbon Dioxide 31.5 H (20.0-27.5) mmol/L Anion Gap 8.50 L (10.00-18.00) mmol/L BUN/Creatinine Ratio 41.52 H (12.00-20.00) Ratio Glucose 122 H (70-110) mg/dL POC Glucose (mg/dL) 114 H (70-110) mg/dL
[2022-03-05 16:56] LABS: Glucose,Whole Blood 145 mg/dL (70-110)
--- NOTE | 2022-03-05 17:17 | P.PN ---
Progress Note - Text Progress Note Date: 03/05/22 Chief Complaint: Abdominal pain Very pleasant 80-year-old patient, Dr. Rg Phipps with past medical history of paroxysmal atrial fibrillation, previous history of PE and DVT, on Xarelto, history of IVC filter placement, COPD, diabetes mellitus type 2, hypertension, h yperlipidemia, history of right breast cancer with mastectomy, anxiety and depression, right diaphragm paralysis. At her baseline uses a walker, but goes outside.. Patient is 3 weeks been having trouble with constipation. Has gone to her PCP trying different laxatives. Decreased appetite. Patient's had previous abdominal surgery with 3 abdominal hernias and a mesh placement has been told to have any further surgeries. Yesterday started out with increasing abdominal pain rather severe. Dry heaving. No fever no chills. Admitted with partial small bowel obstruction. NG tube placed. 03/02/2022: NG tube to suction continues. Decreased abdominal pain. No factors. No BM. IV fluids. Nothing by mouth. 03/03/2022: NG tube suction continues. Had some epistaxis earlier. We'll put local ointment. Patient earlier this month had epistaxis with cauterization. Has passed some flatus. No BM. 03/04/2022: NG tube to suction continues. No flatus. In bed. No nausea vomiting. Patient went into atrial flutter fibrillation uncontrolled. Cardizem increased to 60 mg 3 times a day. Continue IV cefepime IV Flagyl. 03/05/2022: NG tube was discontinued. Yesterday. Given clear liquids. Today started on full liquids by surgery. Has passed flatus. Tired. Heart rate controlled Active Medications Acetaminophen (Acetaminophen Tab 325 Mg Tab) 650 mg PO Q6HR PRN PRN Reason: Fever and/ or mild Pain Albuterol/Ipratropium (Ipratropium-Albuterol 3 Ml Neb) 3 ml INHALATION RT-TID [facility] Last Admin: 03/05/22 11:34 Dose: 3 ml Clonazepam (Clonazepam 1 Mg Tab) 1 mg PO BID [facility] Last Admin: 03/05/22 08:35 Dose: 1 mg Diltiazem HCl (Diltiazem Oral 60 Mg Tab) 60 mg PO TID [facility] Last Admin: 03/05/22 16:35 Dose: 60 mg Dorzolamide HCl (Dorzolamide Hcl 2% Drops 10 Ml Btl) 1 drops BOTH EYES BID [facility] Last Admin: 03/05/22 08:36 Dose: 1 drops Heparin Sodium (Porcine) (Heparin Sodium,Porcine/Pf 5,000 Unit/0.5 Ml Syringe) 5,000 unit SQ Q12HR [facility] Hydromorphone HCl (Hydromorphone 0.5 Mg/0.5 Ml Syringe) 0.5 mg IVP Q3HR PRN PRN Reason: Moderate Pain (Scale 4 to 6) Last Admin: 03/04/22 10:18 Dose: 0.5 mg Hydromorphone HCl (Hydromorphone 1 Mg/Ml 1 Ml Syringe) 1 mg IVP Q3HR PRN PRN Reason: Severe Pain (Scale 7 to 10) Last Admin: 03/03/22 05:05 Dose: 1 mg Metronidazole 500 mg/ IV (Solution) 100 mls @ 100 mls/hr IVPB Q8H [facility]; Protocol Last Admin: 03/05/22 10:53 Dose: 100 mls/hr Cefepime HCl 2 gm/ Sodium (Chloride) 100 mls @ 200 mls/hr IVPB Q12H [facility]; Protocol Last Admin: 03/05/22 16:35 Dose: 200 mls/hr Sodium Chloride (Saline 0.9%) 1,000 mls @ 75 mls/hr IV .[id number] [facility] Last Admin: 03/05/22 10:53 Dose: 75 mls/hr Insulin Aspart (Insulin Aspart (Novolog) 100 Unit/Ml Vial) 0 unit SQ ACHS [facility]; Protocol Last Admin: 03/05/22 17:13 Dose: Not Given Latanoprost (Latanoprost 0.005% Ophth Drops 2.5 Ml Btl) 1 drops BOTH EYES HS [facility] Last Admin: 03/04/22 20:56 Dose: 1 drops Lorazepam (Lorazepam 2 Mg/Ml Inj) 0.5 mg IV Q6HR PRN PRN Reason: Anxiety Last Admin: 03/03/22 12:45 Dose: 0.5 mg Losartan Potassium (Losartan 50 Mg Tab) 50 mg PO DAILY [facility] Last Admin: 03/05/22 08:36 Dose: 50 mg Metoprolol Tartrate (Metoprolol Tartrate 25 Mg Tab) 25 mg PO BID [facility] Last Admin: 03/05/22 08:36 Dose: 25 mg Naloxone HCl (Naloxone 0.4 Mg/Ml 1 Ml Vial) 0.2 mg IV Q2M PRN PRN Reason: Opioid Reversal Ondansetron HCl (Ondansetron 4 Mg/2 Ml Vial) 4 mg IVP Q6HR PRN PRN Reason: Nausea And Vomiting Last Admin: 03/04/22 02:58 Dose: 4 mg Pantoprazole Sodium (Pantoprazole 40 Mg/10 Ml Vial) 40 mg IV DAILY [facility] Last Admin: 03/05/22 08:36 Dose: 40 mg Sertraline HCl (Sertraline 50 Mg Tab) 150 mg PO DAILY [facility] Last Admin: 03/05/22 08:36 Dose: 150 mg Timolol Maleate (Timolol 0.5% Ophth Drops 5 Ml Btl) 1 drops BOTH EYES DAILY [facility] Last Admin: 03/05/22 08:37 Dose: 1 drops Past medical history to include: Home oxygen, right diaphragm paralysis, moderate persistent asthma, moderate secondary pulmonary hypertension, M.D. HF are gene mutation on xarelto, chronic pulmonary embolism and DVT, chronic abdominal wall hernia, hypertension, paroxysmal atrial fibrillation, Social history: Lives alone in the seated apartment. Home oxygen 2 L. Walker. No history of smoking or alcohol Family history: CAD. On examination: VITAL SIGNS: 98.5, 98, 179/62, 97% on 2 L GENERAL APPEARANCE: Reclining in bed, tired HEENT: Normal external appearance of nose and ear. Oral cavity dry. EYES: Pupils equal. Conjunctiva normal. NECK: JVD not raised. Mass not palpable. RESPIRATORY: Respiratory effort increased. Lungs decreased breath sounds CARDIOVASCULAR: Heart sounds irregular No edema. ABDOMEN: Soft. Mild Tender, no guarding rigidity, abdominal wall hernia, it was not palpable, hyperactive bowel sounds MUSCULAR skeletal: Evidence of OA in several joints NEUROLOGICAL: Cranial nerves grossly intact. Poor sensation grossly intact.. PSYCHIATRY: Alert and oriented x3. Mood and affect anxious INVESTIGATIONS, reviewed in the clinical context: 03/05/2022: White count 11.2 progression 3.6 creatinine 0.6 03/04/2022: Obesity 14.9 hemoglobin 11.7 potassium 2.8 BUN 19 creatinine 0.81 03/02/2022: White count 13.1 hemoglobin 12.7 platelets 280 White count 18 hemoglobin 13.5 platelets 280 sodium 144 percussion 3.6 creatinine 0.86 Troponin I 0.066 EKG tracing personally reviewed by me-normal sinus rhythm. Rate 69 Chest x-ray film personally reviewed by me-expiratory. Some diaphragm elevation. CT abdomen and pelvis without contrast: Hernia unchanged. Dilated small bowel with fluid levels consistent with partial mechanical small bowel obstruction. [place] to be new 2020: Cardiac catheterization: Minimal plaque in the proximal LAD. Severely tortuous coronary arteries. 2-D echocardiogram: EF 55-60%. [id number] mitral regurgitation Assessment and plan: -Acute partial small bowel obstruction. : Lately better NG tube continued. Empirically on IV Flagyl and IV cefepime. For liquid start ed by surgery -Moderate persistent asthma DuoNeb 4 times a day. -Moderate secondary pulmonary hypertension secondary to possibly asthma -MTHFR gene mutation hOld xarelto. Subcu Lovenox 80 mg every 12 -Chronic pulmonary embolism and DVT patient Hold xarelto. Lovenox -Chronic hypoxic respiratory failure on home oxygen 2 L, from right diaphragm paralysis and asthma Supplement oxygen -Chronic abdominal wall hernia, with prior 3 repairs with mesh -Essential hypertension Cardizem 60 mg 3 times a day , Cozaar 50 mg daily -Paroxysmal atrial fibrillation, went into rapid ventricular rate. On xarelto currently on Lovenox. Increased Cardizem 60 mg 3 times a day. Seen by cardiology. 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 -Anxiety depression Zoloft 150 mg a day -Chronic gait dysfunction Uses a walker at her baseline NG tube discontinued yesterday. Advanced to full liquid diet. Had flatus.
[2022-03-05] MEDS: ONDANSETRON 4 MG/2 ML VIAL IVP PRN (19:26)
[2022-03-05 20:57] LABS: Glucose,Whole Blood 147 mg/dL (70-110)
[2022-03-05] MEDS: HEPARIN SODIUM,PORCINE/PF 5,000 UNIT/0.5 ML SYRINGE SQ SCH (21:25)
[2022-03-05] MEDS: LATANOPROST 0.005% OPHTH DROPS 2.5 ML BTL BOTH EYES SCH (21:26)
[2022-03-06] MEDS: SODIUM CHLORIDE 0.9% 1,000 ML IV SCH ×2 (00:59→13:59)
[2022-03-06] MEDS: ONDANSETRON 4 MG/2 ML VIAL IVP PRN ×3 (01:50→15:45)
[2022-03-06] MEDS: metroNIDAZOLE-NS PMX 500 MG in SALINE 1 100ML.BAG IVPB SCH ×3 (01:51→17:33)
[2022-03-06] MEDS: LORazepam 2 MG/ML INJ IV PRN ×2 (03:09→15:46)
[2022-03-06] MEDS: CEFEPIME 2 GM in SODIUM CHLORIDE 0.9% 100 ML IVPB SCH ×2 (03:14→15:45)
[2022-03-06 06:02] LABS: Glucose,Whole Blood 127 mg/dL (70-110)
[2022-03-06] MEDS: INSULIN ASPART (NovoLOG) 100 UNIT/ML VIAL SQ SCH ×4 (06:27→21:02)
[2022-03-06 08:36] LABS: Basophils % (A) 0 %; Eosinophils # (A) 0.2 k/uL (0-0.7); Eosinophils % (A) 1 %; HCT 39.6 % (34.0-46.0); HGB 12.5 gm/dL (11.4-16.0); Hypochromasia Moderate; Lymphocytes # (A) 1.8 k/uL (1.0-4.8); Lymphocytes % (A) 13 %; MCH 30.2 pg (25.0-35.0); MCHC 31.7 g/dL (31.0-37.0); MCV 95.3 fL (80.0-100.0); Monocytes # (A) 0.6 k/uL (0-1.0); Monocytes % (A) 4 %; Neutrophils # (A) 10.9 k/uL (1.3-7.7); Neutrophils % (A) 80 %; Platelet Count 258 k/uL (150-450); RBC 4.15 m/uL (3.80-5.40); RDW 12.9 % (11.5-15.5); WBC 13.5 k/uL (3.8-10.6)
[2022-03-06] MEDS: DILTIAZEM ORAL 60 MG TAB PO SCH ×3 (08:47→21:11)
[2022-03-06] MEDS: clonazePAM 1 MG TAB PO SCH ×2 (08:47→21:11)
[2022-03-06] MEDS: HEPARIN SODIUM,PORCINE/PF 5,000 UNIT/0.5 ML SYRINGE SQ SCH ×2 (08:48→21:11)
[2022-03-06] MEDS: LOSARTAN 50 MG TAB PO SCH (08:48)
[2022-03-06] MEDS: PANTOPRAZOLE 40 MG/10 ML VIAL IV SCH (08:48)
[2022-03-06] MEDS: SERTRALINE 50 MG TAB PO SCH (08:48)
[2022-03-06] MEDS: METOPROLOL TARTRATE 25 MG TAB PO SCH ×2 (08:48→21:11)
[2022-03-06] MEDS: DORZOLAMIDE HCL 2% DROPS 10 ML BTL BOTH EYES SCH ×2 (08:48→21:11)
[2022-03-06] MEDS: TIMOLOL 0.5% OPHTH DROPS 5 ML BTL BOTH EYES SCH (08:49)
[2022-03-06 08:54] LABS: African American GFR (CKD) >90 (>60 ml/min/1.73 sqM); Anion Gap 4 mmol/L; Blood Urea Nitrogen 16 mg/dL (7-17); Calcium 9.2 mg/dL (8.4-10.2); Carbon Dioxide 33 mmol/L (22-30); Chloride 103 mmol/L (98-107); Glucose 136 mg/dL (74-99); Non-African American GFR(CKD) 88 (>60 ml/min/1.73 sqM); Potassium 2.8 mmol/L (3.5-5.1); Sodium 140 mmol/L (137-145)
[2022-03-06] MEDS: IPRATROPIUM-ALBUTEROL 3 ML NEB INHALATION SCH ×3 (09:33→20:20)
[2022-03-06] MEDS ORDERED: Potassium Replacement Protocol 1 EACH MISC MISCELLANE PRN (10:14)
[2022-03-06] MEDS: ACETAMINOPHEN IV (For NPO) 1,000 MG in EMPTY BAG 1 BAG IVPB SCH ×3 (10:34→22:38)
[2022-03-06] MEDS: POTASSIUM BICARBONATE/CIT AC 20 MEQ TABLET.EFF PO SCH ×3 (11:07→13:58)
[2022-03-06] MEDS: IOPAMIDOL CONTRAST (ORAL USE) VIAL PO PRN ×2 (11:07→12:01)
[2022-03-06 11:53] LABS: Glucose,Whole Blood 135 mg/dL (70-110)
--- NOTE | 2022-03-06 13:55 | CT ---
"EXAMINATION TYPE: CT abdomen pelvis wo con DATE OF EXAM: 03/06/2022 HISTORY: Abdominal pain and distention CT DLP: 930.2 mGycm. Automated Exposure Control for Dose Reduction was Utilized. TECHNIQUE: CT scan of the abdomen and pelvis is performed with oral but without IV contrast. COMPARISON: CT abdomen and pelvis 5 days ago FINDINGS: Within the limitations of a non-contrast study, the following observations are made. LUNG BASES: Tiny bilateral pleural effusions. There is left basilar atelectasis and/or consolidation. Elevated right hemidiaphragm. Cardiomegaly with moderate to severe left atrial dilatation. LIVER/GB: No significant abnormality is appreciated. PANCREAS: No significant abnormality is seen. SPLEEN: No significant abnormality is seen. ADRENALS: No significant abnormality is seen. KIDNEYS: No renal stones or hydronephrosis is seen bilaterally. There is 1.9 cm simple appearing thin -walled cyst in the right kidney axial image 37. Nonspecific perinephric fat stranding redemonstrated . BOWEL: Large hiatal hernia or intrathoracic stomach redemonstrated. Contrast-filled stomach with air- fluid level again seen. Contrast extends into nondistended duodenal sweep. There are dilated contrast -filled small bowel loops with air-fluid levels in the left abdomen. There are dilated fluid-filled s mall bowel loops in the right lower abdomen/pelvis extending to level of the ventral wall hernia wher e there is abrupt transition to nondistended small bowel loop. Nondistended bowel loops in the pelvis are seen extending to the rectum. Diverticula seen in the right-sided colon. Nondistended terminal i leum. Small bowel loops dilated up to 3.9 cm. Focal calcification at this level axial image 73 redemo nstrated. GENITAL ORGANS: Uterus is surgically absent or markedly atrophic. LYMPH NODES: No greater than 1cm abdominal or pelvic lymph nodes are appreciated. OSSEOUS STRUCTURES: Moderate axial joint space loss in both hips with acetabular spurring. Facet arth ropathy lower lumbar levels. OTHER: Thin-walled fluid collection in the pelvis redemonstrated measuring 12.2 x 9.9 cm axial image 72. Etiology uncertain. Possible distended bladder suspected collapsed bladder axial image 81. Infrar enal IVC redemonstrated. No free air. Occasional scattered tiny pelvic phlebolith. Mild to moderate c alcified plaque of the aorta extends into branch vessels. No free air currently. Mild subcutaneous ed alexy inferiorly is now present. IMPRESSION: 1. There is high-grade distal small bowel obstruction with transition point at the right pelvic ventr al wall hernia perhaps on the basis of focal adhesion. Critical results communicated to patient's nurse via telephone at time of dictation. A Yellow level critical message alert has been initiated for Rhett Ashraf MD via the [employer] 36 0 | Critical Results System on 03/06/2022 1:53 PM. This message alert has been sent to Rhett Ashraf MD via the preferences provided by the clinician for the receipt of Radiology Critical Findings. In ssage ID [id number]."
[2022-03-06 14:52] VITALS: BMI 33.0
--- NOTE | 2022-03-06 15:33 | P.PN ---
Subjective Progress Note Date: 03/06/22 81-year-old female who presents to the emergency department, on March 01, complaining of abdominal pain. The patient's abdominal pain apparently developed about 24 hours prior to admission. More recently, she has been constipated, and she's been trying a number different things to relieve her constipation. The patient was seen in the ER, and also seen by surgery in the ER. I was asked to see her for preoperative clearance. The daughter, who I spoke with, would prefer not putting her mother to any surgery. For the patient, and the patient's daughter, surgery would be the last resort we had so me sort of procedure a couple years at [facility], and almost . The patient also sees my partner in the office, for some chronic hypoxemic respiratory failure, and diaphragm dysfunction. She is a lifelong nonsmoker, and does have evidence of COPD on PFTs, with an FEV1 percent at 63. She does use oxygen at 2 L, 24/7. Currently, she is getting saline at 75 mL an hour. There is an NG tube in place. White count 18, hemoglobin 13.5, hematocrit 42.6, and platelet count 280,000. Sodium 144, potassium 3.6, chlorides 101, CO2 36, BUN 14, and creatinine 0.86. Troponin was 0.066. CT of the abdomen and pelvis showed dilated small bowel with air-fluid levels consistent with partial mechanical small bowel obstruction. In addition, there is infiltrate and atelectasis at both lung bases. Finally, there is a broad-based lower abdominal ventral hernia. Chest x-rays consistent with low lung volumes, basilar atelectasis, or infiltrate, and elevated diaphragms. The patient is seen today 03/02/2022 in follow-up on the regular medical floor. She is resting comfortably in bed. Awake and alert in no acute distress. She is maintaining O2 saturations in the 90s on 3 L/m per nasal cannula. Denies any significant abdominal discomfort. Nasogastric tube remains in place. Normal saline at 75 ML's per hour. White count 13.1. Hemoglobin 12.7. She remains on cefepime and Flagyl. Continue bronchodilators. The patient is seen today 03/05/2022 in follow-up on the regular medical floor. She is resting comfortably in bed. Awake and alert in no acute distress. Her nasogastric tube has been removed. The plan is to initiate clear liquid diet. Urine culture reveals no growth. White count 11.0. Hemoglobin 11.2. Sodium 147. Potassium 3.6. BUN 25. Creatinine 0.6. Glucose 122. She is continued on antibiotics in the form of cefepime and Flagyl. Continued on [facility] hodilators. The patient is seen today 03/06/2022 in follow-up on the regular medical floor. She is currently sitting up in a chair at the bedside. Her family is present. She is maintaining good O2 saturations in the mid 90s on 2 L/m per nasal cannula. She's been afebrile. She denies any worsening shortness of breath, cough or congestion. She is however having some recurrent abdominal discomfort. Urine culture revealed no growth. White count 13.5. Hemoglobin 12.5. Sodium 140. Potassium 2.8. BUN 16. Creatinine 0.57. Glucose 136. Potassium has been replaced. She remains on cefepime and Flagyl. Follow-up computed tomography scan of the abdomen and pelvis reveals a large hiatal hernia or intrathoracic stomach we demonstrated. There is a high-grade distal small bowel obstruction with transition point at the right pelvic ventral wall hernia perhaps on the basis of focal adhesion. Objective - Vital Signs Vital signs: Vital Signs Temp 98.1 F 03/06/22 14:00 Pulse 47 L 03/06/22 14:00 Resp 16 03/06/22 14:00 BP 196/76 03/06/22 14:00 Pulse Ox 96 03/06/22 14:00 FiO2 Intake & Output 03/05/22 03/06/22 03/06/22 18:59 06:59 18:59 Output Total 575 1500 Balance -575 -1500 Weight 79.379 kg Output: Urine 575 1500 Uretheral (Frias) 1500 Other: Voiding Method Indwelling Catheter Indwelling Catheter # Voids 1 # Bowel Movements 1 - Exam GENERAL EXAM: Alert, pleasant 81-year-old female, on 2 L nasal cannula, fairly comfortable in no apparent distress. HEAD: Normocephalic. EYES: Normal reaction of pupils, equal size. NOSE: Clear with pink turbinates. THROAT: No erythema or exudates. NECK: No masses, no JVD. CHEST: No chest wall deformity. LUNGS: Equal air entry with few scattered rhonchi. CVS: S1 and S2 normal with no audible murmur, regular rhythm. ABDOMEN: Soft. Incisional hernia. Some tenderness on palpation today. No hepatosplenomegaly, hypoactive bowel sounds, no guarding or rigidity. SPINE: No scoliosis or deformity SKIN: No rashes CENTRAL NERVOUS SYSTEM: No focal deficits, tone is normal in all 4 extremities. EXTREMITIES: There is no peripheral edema. No clubbing, no cyanosis. Peripheral pulses are intact. - Labs CBC & Chem 7: 03/06/22 08:15 03/06/22 08:15 Labs: Abnormal Lab Results - Last 24 Hours (Table) 03/05/22 03/05/22 03/06/22 Range/Units 16:54 20:55 06:00 WBC (3.8-10.6) k/uL Neutrophils # (1.3-7.7) k/uL Potassium (3.5-5.1) mmol/L Carbon Dioxide (22-30) mmol/L Glucose (74-99) mg/dL POC Glucose (mg/dL) 145 H 147 H 127 H (70-110) mg/dL 03/06/22 03/06/22 03/06/22 Range/Units 08:15 08:15 11:52 WBC 13.5 H (3.8-10.6) k/uL Neutrophils # 10.9 H (1.3-7.7) k/uL Potassium 2.8 L (3.5-5.1) mmol/L Carbon Dioxide 33 H (22-30) mmol/L Glucose 136 H (74-99) mg/dL POC Glucose (mg/dL) 135 H (70-110) mg/dL Assessment and Plan Assessment: Abdominal pain, and constipation, related to a partial small bowel obstruction. She developed some abdominal discomfort again today 03/06/2022. Follow-up CAT scan of the abdomen and pelvis reveals a high-grade distal small bowel obstruction with transition point at the right pelvic ventral wall hernia perhaps on the basis of focal adhesion. History of chronic hypoxemic respiratory failure, secondary to COPD, and diaphragm dysfunction. History of hyperlipidemia. History of atrial fibrillation. History of diabetes mellitus. History of deep venous thrombosis and pulmonary embolism. History of GERD. History of MTHFR gene mutation. Multiple other medical problems and comorbidities. Plan: The patient was seen and evaluated Medications and labs reviewed Continue on cefepime and Flagyl Computed tomography scan reviewed Plan is for possible surgery tomorrow for her small bowel obstruction Currently stable and on 2 L nasal cannula Family is at the bedside We will continue to follow I have personally seen and examined the patient, performed the documentation and the assessment and plan as written. Number of minutes spent on the visit: 10. This is a joint evaluation that was done along with DIVISION SUPERVISOR. The patient was seen and evaluated personally. I reviewed and discussed the the above-mentioned plan with the patient and the DIVISION SUPERVISOR. This evaluation was done in more than 20 minutes. I agree to the above-mentioned evaluation, information and planning.
--- NOTE | 2022-03-06 15:58 | P.PN ---
Subjective Progress Note Date: 03/06/22 CHIEF COMPLAINT: Abdominal pain HISTORY OF PRESENT ILLNESS: Patient hospitalized with a partial small bowel obstruction. Patient had worsening abdominal pain and abdominal distention. She stopped passing gas. She did have a small bowel movement yesterday. However since then patient condition has worsened. She's been having nausea and dry heaves. She reports that she feels like how she felt when she presented to the ER. Afebrile. WBC is up from 11-13.5 hemoglobin 12.5 platelets 258 sodium is 140 potassium is 2.8 creatinine 0.57 C omputed tomography scan abdomen and pelvis completed this morning showing high-grade distal small bowel obstruction with transition point at the right pelvic ventral wall hernia perhaps on the basis of focal adhesion Patient seen and examined with Dr. cottrell PHYSICAL EXAM: VITAL SIGNS: Reviewed. GENERAL: Well-developed in no acute distress. HEENT: No sclera icterus. Extraocular movements grossly intact. Moist buccal mucosa. Head is atraumatic, normocephalic. ABDOMEN: Abdomen becoming more distended. Tenderness right lower abdomen NEUROLOGIC: Alert and oriented. Cranial nerves II through XII grossly intact. ASSESSMENT: 1. High-grade distal small bowel obstruction 2. Hypokalemia PLAN: -Computed tomography scan showing evidence of high-grade distal small bowel resection. Patient scheduled for exploratory laparotomy tomorrow with Dr. johanna hernandes -NG tube placed for decompression -Keep patient nothing by mouth -IV Tylenol added for pain -Continue supportive care -Continue IV fluids -Replace potassium -Continue to hold Xarelto in case patient requires surgical intervention -Subcu heparin added for DVT prophylaxis Physician Display Associate note has been reviewed by physician. Signing provider agrees with the documented findings, assessment, and plan of care. Objective - Vital Signs Vital signs: Vital Signs Temp 98.1 F 03/06/22 14:00 Pulse 47 L 03/06/22 14:00 Resp 16 03/06/22 14:00 BP 196/76 03/06/22 14:00 Pulse Ox 96 03/06/22 14:00 FiO2 Intake & Output 03/05/22 03/06/22 03/06/22 18:59 06:59 18:59 Output Total 575 1500 Balance -575 -1500 Weight 79.379 kg Output: Urine 575 1500 Uretheral (Frias) 1500 Other: Voiding Method Indwelling Catheter Indwelling Catheter # Voids 1 # Bowel Movements 1 - Labs CBC & Chem 7: 03/06/22 08:15 03/06/22 08:15 Labs: Abnormal Lab Results - Last 24 Hours (Table) 03/05/22 03/05/22 03/06/22 Range/Units 16:54 20:55 06:00 WBC (3.8-10.6) k/uL Neutrophils # (1.3-7.7) k/uL Potassium (3.5-5.1) mmol/L Carbon Dioxide (22-30) mmol/L Glucose (74-99) mg/dL POC Glucose (mg/dL) 145 H 147 H 127 H (70-110) mg/dL 03/06/22 03/06/22 03/06/22 Range/Units 08:15 08:15 11:52 WBC 13.5 H (3.8-10.6) k/uL Neutrophils # 10.9 H (1.3-7.7) k/uL Potassium 2.8 L (3.5-5.1) mmol/L Carbon Dioxide 33 H (22-30) mmol/L Glucose 136 H (74-99) mg/dL POC Glucose (mg/dL) 135 H (70-110) mg/dL
[2022-03-06 16:35] LABS: Glucose,Whole Blood 120 mg/dL (70-110)
--- NOTE | 2022-03-06 17:53 | P.PN ---
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 At her baseline uses a walker, but goes outside.. Patient is 3 weeks been having trouble with constipation. Has gone to her PCP trying different laxatives. Decreased appetite. Patient's had previous abdominal surgery with 3 abdominal hernias and a mesh placement has been told to have any further surgeries. Yesterday started out with increasing abdominal pain rather severe. Dry heaving. No fever no chills. Admitted with partial small bowel obstruction. NG tube placed. 03/02/2022: NG tube to suction continues. Decreased abdominal pain. No factors. No BM. IV fluids. Nothing by mouth. 03/03/2022: NG tube suction continues. Had some epistaxis earlier. We'll put local ointment. Patient earlier this month had epistaxis with cauterization. Has passed some flatus. No BM. 03/04/2022: NG tube to suction continues. No flatus. In bed. No nausea vomiting. Patient went into atrial flutter fibrillation uncontrolled. Cardizem increased to 60 mg 3 times a day. Continue IV cefepime IV Flagyl. 03/05/2022: NG tube was discontinued. Yesterday. Given clear liquids. Today started on full liquids by surgery. Has passed flatus. Tired. Heart rate controlled 03/06/2022: Computed tomography scan done today again shows high-grade distal small bowel obstruction. Patient's 2 daughters at the bedside. Discussed with the patient and 2 daughters. Patient is a high risk for surgery but no other option. NG tube is being reordered by surgery. Possible surgery tomorrow. Active Medications Acetaminophen (Acetaminophen Tab 325 Mg Tab) 650 mg PO Q6HR PRN PRN Reason: Fever and/ or mild Pain Albuterol/Ipratropium (Ipratropium-Albuterol 3 Ml Neb) 3 ml INHALATION RT-TID JOHNY Last Admin: 03/06/22 12:05 Dose: Not Given Clonazepam (Clonazepam 1 Mg Tab) 1 mg PO BID [facility] Last Admin: 03/06/22 08:47 Dose: 1 mg Diltiazem HCl (Diltiazem Oral 60 Mg Tab) 60 mg PO TID [facility] Last Admin: 03/06/22 15:45 Dose: Not Given Dorzolamide HCl (Dorzolamide Hcl 2% Drops 10 Ml Btl) 1 drops BOTH EYES BID [facility] Last Admin: 03/06/22 08:48 Dose: 1 drops Heparin Sodium (Porcine) (Heparin Sodium,Porcine/Pf 5,000 Unit/0.5 Ml Syringe) 5,000 unit SQ Q12HR [facility] Last Admin: 03/06/22 08:48 Dose: 5,000 unit Hydromorphone HCl (Hydromorphone 0.5 Mg/0.5 Ml Syringe) 0.5 mg IVP Q3HR PRN PRN Reason: Moderate Pain (Scale 4 to 6) Last Admin: 03/04/22 10:18 Dose: 0.5 mg Hydromorphone HCl (Hydromorphone 1 Mg/Ml 1 Ml Syringe) 1 mg IVP Q3HR PRN PRN Reason: Severe Pain (Scale 7 to 10) Last Admin: 03/03/22 05:05 Dose: 1 mg Metronidazole 500 mg/ IV (Solution) 100 mls @ 100 mls/hr IVPB Q8H [facility]; Protocol Last Admin: 03/06/22 17:33 Dose: Not Given Cefepime HCl 2 gm/ Sodium (Chloride) 100 mls @ 200 mls/hr IVPB Q12H [facility]; Protocol Last Admin: 03/06/22 15:45 Dose: 200 mls/hr Sodium Chloride (Saline 0.9%) 1,000 mls @ 75 mls/hr IV .[id number] [facility] Last Admin: 03/06/22 13:59 Dose: 75 mls/hr Acetaminophen 1,000 mg/ IV (Solution) 100 mls @ 400 mls/hr IVPB Q6H [facility] Stop: 03/07/22 05:14 Last Admin: 03/06/22 17:29 Dose: 400 mls/hr Insulin Aspart (Insulin Aspart (Novolog) 100 Unit/Ml Vial) 0 unit SQ ACHS [facility]; Protocol Last Admin: 03/06/22 17:15 Dose: Not Given Latanoprost (Latanoprost 0.005% Ophth Drops 2.5 Ml Btl) 1 drops BOTH EYES HS [facility] Last Admin: 03/05/22 21:26 Dose: 1 drops Lorazepam (Lorazepam 2 Mg/Ml Inj) 0.5 mg IV Q6HR PRN PRN Reason: Anxiety Last Admin: 03/06/22 15:46 Dose: 0.5 mg Losartan Potassium (Losartan 50 Mg Tab) 50 mg PO DAILY [facility] Last Admin: 03/06/22 08:48 Dose: 50 mg Metoprolol Tartrate (Metoprolol Tartrate 25 Mg Tab) 25 mg PO BID [facility] Last Admin: 03/06/22 08:48 Dose: 25 mg Miscellaneous Information (Potassium Replacement Protocol 1 Each Misc) 1 each MISCELLANE DAILY PRN; Protocol PRN Reason: Per Protocol Naloxone HCl (Naloxone 0.4 Mg/Ml 1 Ml Vial) 0.2 mg IV Q2M PRN PRN Reason: Opioid Reversal Ondansetron HCl (Ondansetron 4 Mg/2 Ml Vial) 4 mg IVP Q6HR PRN PRN Reason: Nausea And Vomiting Last Admin: 03/06/22 15:45 Dose: 4 mg Pantoprazole Sodium (Pantoprazole 40 Mg/10 Ml Vial) 40 mg IV DAILY [facility] Last Admin: 03/06/22 08:48 Dose: 40 mg Sertraline HCl (Sertraline 50 Mg Tab) 150 mg PO DAILY [facility] Last Admin: 03/06/22 08:48 Dose: 150 mg Timolol Maleate (Timolol 0.5% Ophth Drops 5 Ml Btl) 1 drops BOTH EYES DAILY [facility] Last Admin: 03/06/22 08:49 Dose: 1 drops Past medical history to include: Home oxygen, right diaphragm paralysis, moderate persistent asthma, moderate secondary pulmonary hypertension, M.D. HF are gene mutation on xarelto, chronic pulmonary embolism and DVT, chronic abdominal wall hernia, hypertension, paroxysmal atrial fibrillation, Social history: Lives alone in the seated apartment. Home oxygen 2 L. Walker. No history of smoking or alcohol Family history: CAD. On examination: VITAL SIGNS: 98.4, 106, 17, 165/109, 93% on 2 L GENERAL APPEARANCE: Reclining in bed, tired HEENT: Normal external appearance of nose and ear. Oral cavity dry. EYES: Pupils equal. Conjunctiva normal. NECK: JVD not raised. Mass not palpable. RESPIRATORY: Respiratory effort increased. Lungs decreased breath sounds CARDIOVASCULAR: Heart sounds irregular No edema. ABDOMEN: Soft. Mild Tender, no guarding rigidity, abdominal wall hernia, sluggish bowel sounds MUSCULAR skeletal: Evidence of OA in several joints NEUROLOGICAL: Cranial nerves grossly intact. Poor sensation grossly intact.. PSYCHIATRY: Alert and oriented x3. Mood and affect anxious INVESTIGATIONS, reviewed in the clinical context: 03/06/2022: WBC 13.5 hemoglobin 12.5 platelets 258 potassium 2.8 creatinine 0.57 03/05/2022: White count 11.2 progression 3.6 creatinine 0.6 03/04/2022: Obesity 14.9 hemoglobin 11.7 potassium 2.8 BUN 19 creatinine 0.81 03/02/2022: White count 13.1 hemoglobin 12.7 platelets 280 White count 18 hemoglobin 13.5 platelets 280 sodium 144 percussion 3.6 creatinine 0.86 Troponin I 0.066 EKG tracing personally reviewed by me-normal sinus rhythm. Rate 69 Chest x-ray film personally reviewed by me-expiratory. Some diaphragm elevation. CT abdomen and pelvis without contrast: Hernia unchanged. Dilated small bowel with fluid levels consistent with partial mechanical small bowel obstruction. Rake to be new 2020: Cardiac catheterization: Minimal plaque in the proximal LAD. Severely tortuous coronary arteries. 2-D echocardiogram: EF 55-60%. [id number] mitral regurgitation Assessment and plan: -Acute distal high-grade small bowel obstruction. : Worsening NG tube to be placed again. Empirically on IV Flagyl and IV cefepime. Discussed with patient. Possible surgery tomorrow. -Moderate persistent asthma DuoNeb 4 times a day. -Moderate secondary pulmonary hypertension secondary to possibly asthma -MTHFR gene mutation hOld xarelto. Subcu Lovenox 80 mg every 12 -Chronic pulmonary embolism and DVT patient Hold xarelto. Lovenox -Chronic hypoxic respiratory failure on home oxygen 2 L, from right diaphragm paralysis and asthma Supplement oxygen -Chronic abdominal wall hernia, with prior 3 repairs with mesh -Essential hypertension Cardizem 60 mg 3 times a day , Cozaar 50 mg daily -Paroxysmal atrial fibrillation, went into rapid ventricular rate. On xarelto currently on Lovenox. Increased Cardizem 60 mg 3 times a day. Seen by cardiology. 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 -Anxiety depression Zoloft 150 mg a day -Chronic gait dysfunction Uses a walker at her baseline Given the high-grade distal small bowel obstruction. Even though patient is a high risk for surgery surgeries on the only alternative. Discussed with the patient and daughter the bedside. NG tube being replaced by surgery.
[2022-03-06] MEDS: LACTATED RINGERS 1,000 ML IV SCH (19:34)
[2022-03-06 21:03] LABS: Glucose,Whole Blood 126 mg/dL (70-110)
[2022-03-06] MEDS: LATANOPROST 0.005% OPHTH DROPS 2.5 ML BTL BOTH EYES SCH (21:11)
[2022-03-07] MEDS: LACTATED RINGERS 1,000 ML IV SCH ×2 (03:05→08:27)
[2022-03-07] MEDS: metroNIDAZOLE-NS PMX 500 MG in SALINE 1 100ML.BAG IVPB SCH ×2 (03:05→09:30)
[2022-03-07] MEDS: CEFEPIME 2 GM in SODIUM CHLORIDE 0.9% 100 ML IVPB SCH ×2 (04:10→14:05)
[2022-03-07 05:55] LABS: Glucose,Whole Blood 117 mg/dL (70-110)
[2022-03-07] MEDS: ACETAMINOPHEN IV (For NPO) 1,000 MG in EMPTY BAG 1 BAG IVPB SCH (06:02)
[2022-03-07] MEDS: INSULIN ASPART (NovoLOG) 100 UNIT/ML VIAL SQ SCH ×2 (06:05→12:00)
[2022-03-07 06:46] LABS: Basophils # (A) 0.1 k/uL (0-0.2); Basophils % (A) 0 %; Eosinophils # (A) 0.2 k/uL (0-0.7); Eosinophils % (A) 2 %; HCT 38.8 % (34.0-46.0); HGB 11.5 gm/dL (11.4-16.0); Hypochromasia Marked; Lymphocytes # (A) 1.8 k/uL (1.0-4.8); Lymphocytes % (A) 14 %; MCH 28.6 pg (25.0-35.0); MCHC 29.7 g/dL (31.0-37.0); MCV 96.5 fL (80.0-100.0); Monocytes # (A) 0.6 k/uL (0-1.0); Monocytes % (A) 5 %; Neutrophils # (A) 10.3 k/uL (1.3-7.7); Neutrophils % (A) 79 %; Platelet Count 227 k/uL (150-450); RBC 4.02 m/uL (3.80-5.40); RDW 13.2 % (11.5-15.5); WBC 13.2 k/uL (3.8-10.6)
[2022-03-07 07:10] LABS: African American GFR (CKD) >90 (>60 ml/min/1.73 sqM); Anion Gap 4 mmol/L; Blood Urea Nitrogen 20 mg/dL (7-17); Calcium 9.3 mg/dL (8.4-10.2); Carbon Dioxide 31 mmol/L (22-30); Chloride 104 mmol/L (98-107); Glucose 121 mg/dL (74-99); Non-African American GFR(CKD) 86 (>60 ml/min/1.73 sqM); Potassium 3.4 mmol/L (3.5-5.1); Sodium 139 mmol/L (137-145)
[2022-03-07] MEDS ORDERED: POTASSIUM CHLORIDE 20 MEQ in WATER FOR INJECTION 1 100ML.BAG IVPB STA (07:58)
[2022-03-07] MEDS: ONDANSETRON 4 MG/2 ML VIAL IVP PRN ×2 (08:21→13:30)
[2022-03-07] MEDS: PANTOPRAZOLE 40 MG/10 ML VIAL IV SCH (08:23)
[2022-03-07] MEDS: LOSARTAN 50 MG TAB PO SCH (08:24)
[2022-03-07] MEDS: METOPROLOL TARTRATE 25 MG TAB PO SCH (08:24)
[2022-03-07] MEDS: SERTRALINE 50 MG TAB PO SCH (08:24)
[2022-03-07] MEDS: clonazePAM 1 MG TAB PO SCH (08:24)
[2022-03-07] MEDS: DILTIAZEM ORAL 60 MG TAB PO SCH (08:25)
[2022-03-07] MEDS: DORZOLAMIDE HCL 2% DROPS 10 ML BTL BOTH EYES SCH (08:25)
[2022-03-07] MEDS: TIMOLOL 0.5% OPHTH DROPS 5 ML BTL BOTH EYES SCH (08:25)
[2022-03-07] MEDS ORDERED: POTASSIUM BICARBONATE/CIT AC 20 MEQ TABLET.EFF PO ONE (08:44)
[2022-03-07] MEDS: HYDROmorphone 0.5 MG/0.5 ML SYRINGE IVP PRN (08:46)
[2022-03-07] MEDS: HEPARIN SODIUM,PORCINE/PF 5,000 UNIT/0.5 ML SYRINGE SQ SCH (08:47)
[2022-03-07 11:52] LABS: Glucose,Whole Blood 120 mg/dL (70-110)
[2022-03-07] MEDS: HYDROmorphone 1 MG/ML 1 ML SYRINGE IVP PRN ×2 (12:05→14:35)
[2022-03-07] MEDS: IPRATROPIUM-ALBUTEROL 3 ML NEB INHALATION SCH ×2 (12:25→12:26)
--- NOTE | 2022-03-07 14:24 | P.PN ---
Subjective Progress Note Date: 03/07/22 CHIEF COMPLAINT: Abdominal pain HISTORY OF PRESENT ILLNESS: Patient hospitalized with a partial small bowel obstruction. Patient had worsening abdominal pain with nausea and dry heaves yesterday. Repeat computed tomography scan has shown evidence of a high-grade bowel obstruction. Initially patient was scheduled for exploratory laparotomy today with Dr. cottrell. However patient and family are wishing to proceed with comfort care measures. Patient does not want to proceed with surgical intervent ion. She does have a complex medical history. And patient has stated that she does not want to be on the ventilator after surgery. Patient continues to have abdominal pain. The pain medication is helping. NG tube output 400 bilious output through the night. Blood pressure has been elevated. Afebrile. WBC 13.5 Hgb 11.5 platelets 227 sodium 139 potassium 3.4 creatinine 0.62 Patient seen and examined with Dr. cottrell PHYSICAL EXAM: VITAL SIGNS: Reviewed. GENERAL: Well-developed in no acute distress. HEENT: No sclera icterus. Extraocular movements grossly intact. Moist buccal mucosa. Head is atraumatic, normocephalic. ABDOMEN: Distended with mid abdominal tenderness NEUROLOGIC: Alert and oriented. Cranial nerves II through XII grossly intact. ASSESSMENT: 1. High-grade distal small bowel obstruction 2. Hypokalemia PLAN: -Surgery has been canceled today. Patient and family are wishing to proceed with comfort care. Dr. Cottrell had long discussion with patient and family regarding surgical intervention for the bowel obstruction. Patient was informed that her bowel obstruction would not improve and she would not survive without surgery. Patient reports that she did not want to proceed with surgery. She did not want to be put on the ventilator and did not want to go through the possible postoperative risks or complications. -Patient's CODE STATUS has been changed to no code -Comfort Care measures have been initiated -Hospice consulted -Case discussed with medical service -Continue pain meds as needed -Continue anxiety meds as needed -Continue antiemetics as needed -Subcu heparin added for DVT prophylaxis Phys[employer] note has been reviewed by physician. Signing provider agrees with the documented findings, assessment, and plan of care. Objective - Vital Signs Vital signs: Vital Signs Temp 98.1 F 03/07/22 08:00 Pulse 55 L 03/07/22 08:00 Resp 16 03/07/22 08:00 BP 204/81 03/07/22 08:00 Pulse Ox 95 03/07/22 08:00 FiO2 Intake & Output 03/06/22 03/07/22 03/07/22 18:59 06:59 18:59 Output Total 1500 325 Balance -1500 -325 Weight 79.379 kg 79.379 kg Output: Urine 1500 325 Uretheral (Frias) 1500 Other: Voiding Method Indwelling Catheter - Labs CBC & Chem 7: 03/07/22 06:03 03/07/22 06:03 Labs: Abnormal Lab Results - Last 24 Hours (Table) 03/06/22 03/06/22 03/07/22 Range/Units 16:33 21:02 05:54 WBC (3.8-10.6) k/uL MCHC (31.0-37.0) g/dL Neutrophils # (1.3-7.7) k/uL Potassium (3.5-5.1) mmol/L Carbon Dioxide (22-30) mmol/L BUN (7-17) mg/dL Glucose (74-99) mg/dL POC Glucose (mg/dL) 120 H 126 H 117 H (70-110) mg/dL 03/07/22 03/07/22 03/07/22 Range/Units 06:03 06:03 11:51 WBC 13.2 H (3.8-10.6) k/uL MCHC 29.7 L (31.0-37.0) g/dL Neutrophils # 10.3 H (1.3-7.7) k/uL Potassium 3.4 L (3.5-5.1) mmol/L Carbon Dioxide 31 H (22-30) mmol/L BUN 20 H (7-17) mg/dL Glucose 121 H (74-99) mg/dL POC Glucose (mg/dL) 120 H (70-110) mg/dL
[2022-03-07 14:25] VITALS: BP 185/79; PULSE 95; RESP 18; TEMP 98.4
--- NOTE | 2022-03-07 14:35 | P.PN ---
Subjective Progress Note Date: 03/07/22 HISTORY OF PRESENT ILLNESS: This is an 81-year-old female patient of Dr. Rivera with a past medical history significant for COPD with chronic hypoxic respiratory failure on home O2, pa roxysmal atrial fibrillation, moderate aortic regurgitation, hypertension, and hyperlipidemia. We have been asked to see the patient in consultation for atrial flutter. Patient examined at the bedside. Patient presented to the hospital with a chief complaint of constipation secondary to partial small bowel obstruction. Last evening, patient developed irregular heartbeat running between 115 140. EKG was obtained which revealed atypical atrial flutter and thus a cardiology consult was placed. Patient is asymptomatic. She is currently on subcu Lovenox. There is no plan for surgical intervention. EKG from 03/01 reveals sinus bradycardia at 69 bpm, no acute ischemic changes. Repeat EKG from 03/03 reveals atypical atrial flutter Chest xray revealed bibasilar opacities suggesting worsening atelectasis and/or acute infiltrate. Laboratory data: WBC 13.1, hemoglobin 12.7, platelet count 280. Potassium 2.8, CO2 34, BUN 19 and creatinine 0.8. Troponin 0.066. Potassium replacement has been ordered of 80 mEq by general surgery. Current home cardiac medications include atorvastatin 10 mg with supper, Hygroton 25 mg daily, Cardizem 30 mg 3 times daily, losartan 59 g daily, Xarelto 20 mg with supper Most recent echocardiogram obtained in October 2020 revealed normal LV systolic function with [id number] mitral regurgitation, mild tricuspid, mild aortic regurgitation Cardiac catheterization history: October 2020 revealed minimal plaque in the proximal LAD, severely tortuous coronary arteries, right dominance 03/05 Patient does not have NG tube and but is nothing by mouth with plan to start full liquid diet for lunch today. Recommend patient be resumed on Xarelto once cleared by general surgery. Patient denies having any chest pain or shortness of breath. cafeteria monitor has been a sinus rhythm. 03/06 Patient does not have NG tube in today. cafeteria monitor remained sinus rhythm. We'll continue to recommend patient resume Xarelto once cleared by general surgery. REVIEW OF SYSTEMS: At the time of my exam: CONSTITUTIONAL: Denies fever or chills. HEENT: Denies blurred vision, vision changes, or eye pain. Denies hemoptysis CARDIOVASCULAR: Denies chest pain. Denies orthopnea. Denies PND. Denies palpitations RESPIRATORY: Denies shortness of breath. GASTROINTESTINAL: Reports abdominal pain. Denies nausea or vomiting. HEMATOLOGIC: Denies bleeding disorders. GENITOURINARY: Denies any blood in urine. SKIN: Denies pruitis. Denies rash. PHYSICAL EXAM: VITAL SIGNS: Reviewed. GENERAL: Well-developed in no acute distress. HEENT: Head is normocephalic. Pupils are equal, round. Sclerae anicteric. LUNGS: Respirations even and unlabored. Lungs few bilateral expiratory wheeze bilaterally. HEART: Regular rate and rhythm. S1 and S2 heard. Diastolic murmur noted ABDOMEN: Soft. Nondistended. Nontender. EXTREMITIES: Normal range of motion. No clubbing or cyanosis. Peripheral pulses intact. No lower extremity edema NEUROLOGIC: Awake and alert. Oriented x 3. ASSESSMENT: Atypical atrial flutter Paroxysmal atrial fibrillation, on anticoagulation with Xarelto, currently in sinus rhythm Partial small bowel obstruction COPD with chronic hypoxic respiratory failure Mild aortic regurgitation Hypertension Hyperlipidemia PLAN: Resume patient on Xarelto once cleared by general surgery Continue patient on Cardizem at increased dose of 60 mg 3 times daily, patient continued on Lopressor 25 mg twice daily Continue blood pressure medications Further recommendations pending patient's course Nurse practitioner note has been reviewed by physician. Signing provider agrees with the documented findings, assessment, and plan of care. Objective - Vital Signs Vital signs: Vital Signs Temp 98.1 F 03/07/22 08:00 Pulse 55 L 03/07/22 08:00 Resp 16 03/07/22 08:00 BP 204/81 03/07/22 08:00 Pulse Ox 95 03/07/22 08:00 FiO2 Intake & Output 03/06/22 03/07/22 03/07/22 18:59 06:59 18:59 Output Total 1500 325 Balance -1500 -325 Weight 79.379 kg 79.379 kg Output: Urine 1500 325 Uretheral (Frias) 1500 Other: Voiding Method Indwelling Catheter - Labs CBC & Chem 7: 03/07/22 06:03 03/07/22 06:03 Labs: Abnormal Lab Results - Last 24 Hours (Table) 03/06/22 03/06/22 03/07/22 Range/Units 16:33 21:02 05:54 WBC (3.8-10.6) k/uL MCHC (31.0-37.0) g/dL Neutrophils # (1.3-7.7) k/uL Potassium (3.5-5.1) mmol/L Carbon Dioxide (22-30) mmol/L BUN (7-17) mg/dL Glucose (74-99) mg/dL POC Glucose (mg/dL) 120 H 126 H 117 H (70-110) mg/dL 03/07/22 03/07/22 03/07/22 Range/Units 06:03 06:03 11:51 WBC 13.2 H (3.8-10.6) k/uL MCHC 29.7 L (31.0-37.0) g/dL Neutrophils # 10.3 H (1.3-7.7) k/uL Potassium 3.4 L (3.5-5.1) mmol/L Carbon Dioxide 31 H (22-30) mmol/L BUN 20 H (7-17) mg/dL Glucose 121 H (74-99) mg/dL POC Glucose (mg/dL) 120 H (70-110) mg/dL
--- NOTE | 2022-03-07 14:37 | P.PN ---
Subjective Progress Note Date: 03/07/22 HISTORY OF PRESENT ILLNESS: This is an 81-year-old female patient of Dr. Rivera with a past medical history significant for COPD with chronic hypoxic respiratory failure on home O2, pa roxysmal atrial fibrillation, moderate aortic regurgitation, hypertension, and hyperlipidemia. We have been asked to see the patient in consultation for atrial flutter. Patient examined at the bedside. Patient presented to the hospital with a chief complaint of constipation secondary to partial small bowel obstruction. Last evening, patient developed irregular heartbeat running between 115 140. EKG was obtained which revealed atypical atrial flutter and thus a cardiology consult was placed. Patient is asymptomatic. She is currently on subcu Lovenox. There is no plan for surgical intervention. EKG from 03/01 reveals sinus bradycardia at 69 bpm, no acute ischemic changes. Repeat EKG from 03/03 reveals atypical atrial flutter Chest xray revealed bibasilar opacities suggesting worsening atelectasis and/or acute infiltrate. Laboratory data: WBC 13.1, hemoglobin 12.7, platelet count 280. Potassium 2.8, CO2 34, BUN 19 and creatinine 0.8. Troponin 0.066. Potassium replacement has been ordered of 80 mEq by general surgery. Current home cardiac medications include atorvastatin 10 mg with supper, Hygroton 25 mg daily, Cardizem 30 mg 3 times daily, losartan 59 g daily, Xarelto 20 mg with supper Most recent echocardiogram obtained in October 2020 revealed normal LV systolic function with [id number] mitral regurgitation, mild tricuspid, mild aortic regurgitation Cardiac catheterization history: October 2020 revealed minimal plaque in the proximal LAD, severely tortuous coronary arteries, right dominance 03/05 Patient does not have NG tube and but is nothing by mouth with plan to start full liquid diet for lunch today. Recommend patient be resumed on Xarelto once cleared by general surgery. Patient denies having any chest pain or shortness of breath. school bus monitor has been a sinus rhythm. 03/06 Patient does not have NG tube in today. school bus monitor remained sinus rhythm. We'll continue to recommend patient resume Xarelto once cleared by general surgery. 03/07 The patient now has an NG tube replaced. She has family members at the bedside state that patient has been transitioned to palliative care. school bus monitor remained sinus rhythm. REVIEW OF SYSTEMS: At the time of my exam: CONSTITUTIONAL: Denies fever or chills. HEENT: Denies blurred vision, vision changes, or eye pain. Denies hemoptysis CARDIOVASCULAR: Denies chest pain. Denies orthopnea. Denies PND. Denies palpitations RESPIRATORY: Denies shortness of breath. GASTROINTESTINAL: Reports abdominal pain. Denies nausea or vomiting. HEMATOLOGIC: Denies bleeding disorders. GENITOURINARY: Denies any blood in urine. SKIN: Denies pruitis. Denies rash. PHYSICAL EXAM: VITAL SIGNS: Reviewed. GENERAL: Well-developed in no acute distress. HEENT: Head is normocephalic. Pupils are equal, round. Sclerae anicteric. LUNGS: Respirations even and unlabored. Lungs few bilateral expiratory wheeze bilaterally. HEART: Regular rate and rhythm. S1 and S2 heard. Diastolic murmur noted ABDOMEN: Soft. Nondistended. Nontender. EXTREMITIES: Normal range of motion. No clubbing or cyanosis. Peripheral pulses intact. No lower extremity edema NEUROLOGIC: Awake and alert. Oriented x 3. ASSESSMENT: Atypical atrial flutter Paroxysmal atrial fibrillation, on anticoagulation with Xarelto, currently in sinus rhythm Partial small bowel obstruction COPD with chronic hypoxic respiratory failure Mild aortic regurgitation Hypertension Hyperlipidemia PLAN: Resume patient on Xarelto once cleared by general surgery Continue patient on Cardizem at increased dose of 60 mg 3 times daily, patient continued on Lopressor 25 mg twice daily Continue blood pressure medications Cardiology will sign off case and follow on an as-needed basis. Nurse practitioner note has been reviewed by physician. Signing provider agrees with the documented findings, assessment, and plan of care. Objective - Vital Signs Vital signs: Vital Signs Temp 98.4 F 03/07/22 14:00 Pulse 95 03/07/22 14:00 Resp 18 03/07/22 14:00 BP 185/79 03/07/22 14:00 Pulse Ox 97 03/07/22 14:00 FiO2 Intake & Output 03/06/22 03/07/22 03/07/22 18:59 06:59 18:59 Intake Total 100 Output Total 1500 325 Balance -1500 -325 100 Weight 79.379 kg 79.379 kg Intake: Intake, IV Titration 100 Amount metroNIDAZOLE-NS PMX 500 100 mg In Saline 1 100ml.bag @ 100 mls/hr IVPB Q8H [facility] Rx#:[id number] Output: Urine 1500 325 Uretheral (Frias) 1500 Other: Voiding Method Indwelling Catheter Indwelling Catheter - Labs CBC & Chem 7: 03/07/22 06:03 03/07/22 06:03 Labs: Abnormal Lab Results - Last 24 Hours (Table) 03/06/22 03/06/22 03/07/22 Range/Units 16:33 21:02 05:54 WBC (3.8-10.6) k/uL MCHC (31.0-37.0) g/dL Neutrophils # (1.3-7.7) k/uL Potassium (3.5-5.1) mmol/L Carbon Dioxide (22-30) mmol/L BUN (7-17) mg/dL Glucose (74-99) mg/dL POC Glucose (mg/dL) 120 H 126 H 117 H (70-110) mg/dL 03/07/22 03/07/22 03/07/22 Range/Units 06:03 06:03 11:51 WBC 13.2 H (3.8-10.6) k/uL MCHC 29.7 L (31.0-37.0) g/dL Neutrophils # 10.3 H (1.3-7.7) k/uL Potassium 3.4 L (3.5-5.1) mmol/L Carbon Dioxide 31 H (22-30) mmol/L BUN 20 H (7-17) mg/dL Glucose 121 H (74-99) mg/dL POC Glucose (mg/dL) 120 H (70-110) mg/dL
--- NOTE | 2022-03-07 15:11 | P.PN ---
Subjective Progress Note Date: 03/07/22 81-year-old female who presents to the emergency department, on March 01, complaining of abdominal pain. The patient's abdominal pain apparently developed about 24 hours prior to admission. More recently, she has been constipated, and she's been trying a number different things to relieve her constipation. The patient was seen in the ER, and also seen by surgery in the ER. I was asked to see her for preoperative clearance. The daughter, who I spoke with, would prefer not putting her mother to any surgery. For the patient, and the patient's daughter, surgery would be the last resort we had so me sort of procedure a couple years at [facility], and almost . The patient also sees my partner in the office, for some chronic hypoxemic respiratory failure, and diaphragm dysfunction. She is a lifelong nonsmoker, and does have evidence of COPD on PFTs, with an FEV1 percent at 63. She does use oxygen at 2 L, 24/7. Currently, she is getting saline at 75 mL an hour. There is an NG tube in place. White count 18, hemoglobin 13.5, hematocrit 42.6, and platelet count 280,000. Sodium 144, potassium 3.6, chlorides 101, CO2 36, BUN 14, and creatinine 0.86. Troponin was 0.066. CT of the abdomen and pelvis showed dilated small bowel with air-fluid levels consistent with partial mechanical small bowel obstruction. In addition, there is infiltrate and atelectasis at both lung bases. Finally, there is a broad-based lower abdominal ventral hernia. Chest x-rays consistent with low lung volumes, basilar atelectasis, or infiltrate, and elevated diaphragms. The patient is seen today 03/02/2022 in follow-up on the regular medical floor. She is resting comfortably in bed. Awake and alert in no acute distress. She is maintaining O2 saturations in the 90s on 3 L/m per nasal cannula. Denies any significant abdominal discomfort. Nasogastric tube remains in place. Normal saline at 75 ML's per hour. White count 13.1. Hemoglobin 12.7. She remains on cefepime and Flagyl. Continue bronchodilators. The patient is seen today 03/05/2022 in follow-up on the regular medical floor. She is resting comfortably in bed. Awake and alert in no acute distress. Her nasogastric tube has been removed. The plan is to initiate clear liquid diet. Urine culture reveals no growth. White count 11.0. Hemoglobin 11.2. Sodium 147. Potassium 3.6. BUN 25. Creatinine 0.6. Glucose 122. She is continued on antibiotics in the form of cefepime and Flagyl. Continued on [facility] hodilators. The patient is seen today 03/06/2022 in follow-up on the regular medical floor. She is currently sitting up in a chair at the bedside. Her family is present. She is maintaining good O2 saturations in the mid 90s on 2 L/m per nasal cannula. She's been afebrile. She denies any worsening shortness of breath, cough or congestion. She is however having some recurrent abdominal discomfort. Urine culture revealed no growth. White count 13.5. Hemoglobin 12.5. Sodium 140. Potassium 2.8. BUN 16. Creatinine 0.57. Glucose 136. Potassium has been replaced. She remains on cefepime and Flagyl. Follow-up computed tomography scan of the abdomen and pelvis reveals a large hiatal hernia or intrathoracic stomach we demonstrated. There is a high-grade distal small bowel obstruction with transition point at the right pelvic ventral wall hernia perhaps on the basis of focal adhesion. 03/07/2022, the patient is being seen for a follow-up. As mentioned earlier, the patient is a high-grade small bowel obstruction, and the patient was unable to tolerate removal of the G-tube. NG tube was accordingly be inserted. Reviewed the CAT scan of the abdomen and pelvis and the patient has a high-grade distal small bowel obstruction with transition point in the right pelvic ventral wall hernia probably related to have focal adhesion. There was also taken wall fluid collection the pelvis measuring 12 x 10 cm in size. Etiology was uncertain. Possible distended bladder suspected. Infrarenal IVC was removed demonstrated. No evidence of any free air within the abdomen. There was also tiny support of his lung bases along with some atelectatic changes and a chronic right hemidiaphragmatic elevation. The patient is nothing by mouth. The patient's WBC count of 15.2 with hemoglobin 11.5 and a platelet count of 227. The ends of 20 with a creatinine of 0.6 and sodium is at 139. Glucose is at 120. The patient remains on IV cefepime and Flagyl. Is awake and alert and she is communicating she's taken Dilaudid for pain control. Family is at the bedside and I had a lengthy discussion with the family. Obviously, the family is very much consented outcome of the surgery is going to be poor and the patient may not be able to survive the postoperative course and even possibly unable to come off the mechanical ventilator. Noted the patient has chronic respiratory insufficiency, hypoventilation, and diaphragmatic weakness causing obvious respiratory compromise. Her performance of functional status is also extremely weak and poor. Family is inclined towards comfort care measures/hospice. The final decision has not been made yet. Objective - Vital Signs Vital signs: Vital Signs Temp 98.4 F 03/07/22 14:00 Pulse 95 03/07/22 14:00 Resp 18 03/07/22 14:00 BP 185/79 03/07/22 14:00 Pulse Ox 97 03/07/22 14:00 FiO2 Intake & Output 03/06/22 03/07/22 03/07/22 18:59 06:59 18:59 Intake Total 100 Output Total 1500 325 Balance -1500 -325 100 Weight 79.379 kg 79.379 kg Intake: Intake, IV Titration 100 Amount metroNIDAZOLE-NS PMX 500 100 mg In Saline 1 100ml.bag @ 100 mls/hr IVPB Q8H [facility] Rx#:[id number] Output: Urine 1500 325 Uretheral (Frias) 1500 Other: Voiding Method Indwelling Catheter Indwelling Catheter - Exam GENERAL EXAM: Alert, pleasant 81-year-old female, on 2 L nasal cannula, fairly comfortable in no apparent distress. The NG tube was currently in place. The patient not having any significant respiratory distress. HEAD: Normocephalic. EYES: Normal reaction of pupils, equal size. NOSE: Clear with pink turbinates. THROAT: No erythema or exudates. NECK: No masses, no JVD. CHEST: No chest wall deformity. LUNGS: Equal air entry with few scattered rhonchi. CVS: S1 and S2 normal with no audible murmur, regular rhythm. ABDOMEN: Soft. Incisional hernia. Some tenderness on palpation today. No hepatosplenomegaly, absent bowel sounds, no guarding or rigidity. There is mild direct abdominal tenderness. No rebound tenderness. No guarding. SPINE: No scoliosis or deformity SKIN: No rashes CENTRAL NERVOUS SYSTEM: No focal deficits, tone is normal in all 4 extremities. EXTREMITIES: There is no peripheral edema. No clubbing, no cyanosis. Peripheral pulses are intact. - Labs CBC & Chem 7: 03/07/22 06:03 03/07/22 06:03 Labs: Abnormal Lab Results - Last 24 Hours (Table) 03/06/22 03/06/22 03/07/22 Range/Units 16:33 21:02 05:54 WBC (3.8-10.6) k/uL MCHC (31.0-37.0) g/dL Neutrophils # (1.3-7.7) k/uL Potassium (3.5-5.1) mmol/L Carbon Dioxide (22-30) mmol/L BUN (7-17) mg/dL Glucose (74-99) mg/dL POC Glucose (mg/dL) 120 H 126 H 117 H (70-110) mg/dL 03/07/22 03/07/22 03/07/22 Range/Units 06:03 06:03 11:51 WBC 13.2 H (3.8-10.6) k/uL MCHC 29.7 L (31.0-37.0) g/dL Neutrophils # 10.3 H (1.3-7.7) k/uL Potassium 3.4 L (3.5-5.1) mmol/L Carbon Dioxide 31 H (22-30) mmol/L BUN 20 H (7-17) mg/dL Glucose 121 H (74-99) mg/dL POC Glucose (mg/dL) 120 H (70-110) mg/dL Assessment and Plan Assessment: High-grade small bowel obstruction, distally with significant abdominal pain and the location of the small bowel. The patient is currently nothing by mouth and the patient has an NG tube for abdominal decompression. General surgery is on the case. The ventral hernia may be the culprit for causing this bowel obstruction. Please refer to the details of the CAT scan of the abdomen and surgical consultation. The patient has a high-grade small bowel obstruction with transition point in the right pelvic ventral wall hernia. There could be also possibility of an adhesion in the same location. History of chronic hypoxemic respiratory failure, secondary to COPD, and diaphragm dysfunction. History of hyperlipidemia. History of atrial fibrillation. History of diabetes mellitus. History of deep venous thrombosis and pulmonary embolism. History of GERD. History of MTHFR gene mutation. Multiple other medical problems and comorbidities. Plan: I do share the patient's family is concerned of her inability to survive the surgery. Obviously this may end up being a lengthy surgery requiring extensive lysis of adhesions, bowel resection and repair of a hernia. There is obviously a previous history of having respiratory insufficiency including respiratory failure, intubation mechanical ventilation. The outcomes of her surgery may not be also favorable based on endoscopic examination of the surgery. I would have the family have further discussion with general surgery regarding the outcomes of surgery. All the pulmonary standpoint, obviously she carries a high risk of developing postoperative already complications due to her age, comorbidities, type of surgery and chronic respiratory insufficiency as discussed above. I have shared this with the family. The family is inclined towards comfort care measures. The patient was seen and evaluated Medications and labs reviewed Continue on cefepime and Flagyl Computed tomography scan reviewed Plan is for possible surgery tomorrow for her small bowel obstruction Currently stable and on 2 L nasal cannula Family is at the bedside We will continue to follow Prognosis poor. We'll continue to follow.
--- NOTE | 2022-03-07 17:25 | P.DS ---
Providers Date of admission: 03/01/22 03:59 Expected date of discharge: 03/07/22 Attending physician: Rhett Ashraf Consults: 03/01/22 12:05 Consult Physician Routine Consulting Provider: Kevyn Staley Consult Reason/Comments: pulmonary clearance Do you want consulting provider notified?: Yes 03/01/22 12:13 Consult Physician Routine Consulting Provider: Alvarado Florence Consult Reason/Comments: partial mechanical SBO Do you want consulting provider notified?: Already Contacted 03/03/22 19:33 Consult Physician Stat Consulting Provider: Stefan Rivera Consult Reason/Comments: A. 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 At her baseline uses a walker, but goes outside.. Patient is 3 weeks been having trouble with constipation. Has gone to her PCP trying different laxatives. Decreased appetite. Patient's had previous abdominal surgery with 3 abdominal hernias and a mesh placement has been told to have any further surgeries. Yesterday started out with increasing abdominal pain rather severe. Dry heaving. No fever no chills. Admitted with partial small bowel obstruction. NG tube placed. 03/02/2022: NG tube to suction continues. Decreased abdominal pain. No factors. No BM. IV fluids. Nothing by mouth. 03/03/2022: NG tube suction continues. Had some epistaxis earlier. We'll put local ointment. Patient earlier this month had epistaxis with cauterization. Has passed some flatus. No BM. 03/04/2022: NG tube to suction continues. No flatus. In bed. No nausea vomiting. Patient went into atrial flutter fibrillation uncontrolled. Cardizem increased to 60 mg 3 times a day. Continue IV cefepime IV Flagyl. 03/05/2022: NG tube was discontinued. Yesterday. Given clear liquids. Today started on full liquids by surgery. Has passed flatus. Tired. Heart rate controlled 03/06/2022: Computed tomography scan done today again shows high-grade distal small bowel obstruction. Patient's 2 daughters at the bedside. Discussed with the patient and 2 daughters. Patient is a high risk for surgery but no other option. NG tube is being reordered by surgery. Possible surgery tomorrow. 03/07/2022: NG tube in place. Abdominal pain. Getting IV Dilaudid. Patient has decided not for any surgery. Wants to go comfort care. [facility] hospice is being consulted. Questions answered Today's medications reviewed Past medical history to include: Home oxygen, right diaphragm paralysis, moderate persistent asthma, moderate secondary pulmonary hypertension, M.D. HF are gene mutation on xarelto, chronic pulmonary embolism and DVT, chronic abdominal wall hernia, hypertension, paroxysmal atrial fibrillation, Social history: Lives alone in the seated apartment. Home oxygen 2 L. Walker. No history of smoking or alcohol Family history: CAD. On examination: VITAL SIGNS: 98.1, 81, 16, 1 3685, 95% room air GENERAL APPEARANCE: Reclining in bed, tired HEENT: Normal external appearance of nose and ear. Oral cavity dry. NG tube to suction EYES: Pupils equal. Conjunctiva normal. NECK: JVD not raised. Mass not palpable. RESPIRATORY: Respiratory effort increased. Lungs decreased breath sounds CARDIOVASCULAR: Heart sounds irregular No edema. ABDOMEN: Soft. Tender, no guarding rigidity, abdominal wall hernia, sluggish bowel sounds MUSCULAR skeletal: Evidence of OA in several joints NEUROLOGICAL: Cranial nerves grossly intact. Poor sensation grossly intact.. PSYCHIATRY: Alert and oriented x3. Mood and affect anxious INVESTIGATIONS, reviewed in the clinical context: 03/06/2022: WBC 13.5 hemoglobin 12.5 platelets 258 potassium 2.8 creatinine 0.57 03/05/2022: White count 11.2 progression 3.6 creatinine 0.6 03/04/2022: Obesity 14.9 hemoglobin 11.7 potassium 2.8 BUN 19 creatinine 0.81 03/02/2022: White count 13.1 hemoglobin 12.7 platelets 280 White count 18 hemoglobin 13.5 platelets 280 sodium 144 percussion 3.6 creatinine 0.86 Troponin I 0.066 EKG tracing personally reviewed by me-normal sinus rhythm. Rate 69 Chest x-ray film personally reviewed by me-expiratory. Some diaphragm elevation. CT abdomen and pelvis without contrast: Hernia unchanged. Dilated small bowel with fluid levels consistent with partial mechanical small bowel obstruction. [place] to be new 2020: Cardiac catheterization: Minimal plaque in the proximal LAD. Severely tortuous coronary arteries. 2-D echocardiogram: EF 55-60%. [id number] mitral regurgitation Assessment and plan: -Acute distal high-grade small bowel obstruction. : Not improving NG tube to suction. Empirically on IV Flagyl and IV cefepime. Patient does not want surgery -Moderate persistent asthma DuoNeb 4 times a day. -Moderate secondary pulmonary hypertension secondary to possibly asthma -MTHFR gene mutation hOld xarelto. Subcu Lovenox 80 mg every 12 -Chronic pulmonary embolism and DVT patient Hold xarelto. Lovenox -Chronic hypoxic respiratory failure on home oxygen 2 L, from right diaphragm paralysis and asthma Supplement oxygen -Chronic abdominal wall hernia, with prior 3 repairs with mesh -Essential hypertension Cardizem 60 mg 3 times a day , Cozaar 50 mg daily -Paroxysmal atrial fibrillation, went into rapid ventricular rate. On xarelto currently on Lovenox. Increased Cardizem 60 mg 3 times a day. Seen by cardiology. 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 -Anxiety depression Zoloft 150 mg a day -Chronic gait dysfunction Uses a walker at her baseline -DO NOT RESUSCITATE Discussed with Dr. Andujar. Patient does not want surgery. Comfort care. Consult hospice for GIP. Advance care planning: Discussed with the patient and daughter is at the bedside. Patient has decided against surgery. End-of-life care discussed. Patient really Dilaudid dr Ativan for anxiety and scopolamine patch if needed. NG tube to remain for symptom control. Questions are answered. Patient is comfortable with her decision. Comfort care. Time spent about 25 minutes Plan - Discharge Summary Discharge Rx Participant: No New Discharge Prescriptions: No Action Sertraline HCl [Zoloft] 150 mg PO DAILY Atorvastatin Calcium [Lipitor] 10 mg PO AC-SUPPER Gabapentin [Neurontin] 300 mg PO BID Rivaroxaban [Xarelto] 20 mg PO AC-SUPPER Brinzolamide/Brimonidine Tart [Simbrinza 1%-0.2% Eye Drops] 1 drop BOTH EYES BID Betaxolol HCl [Betaxolol HCl 0.5% Ophth Soln] 1 drop BOTH EYES DAILY Losartan [Cozaar] 50 mg PO DAILY Bimatoprost [Lumigan 0.01% Ophth Soln] 1 drop BOTH EYES HS clonazePAM [KlonoPIN] 1 mg PO BID Diltiazem Oral [Cardizem*] 30 mg PO TID #90 tab Albuterol Inhaler [Ventolin Hfa Inhaler] 2 puff INHALATION RT-QID PRN PRN Reason: Shortness Of Breath Chlorthalidone [Hygroton] 25 mg PO DAILY Discharge Medication List Atorvastatin Calcium [Lipitor] 10 mg PO AC-SUPPER 01/28/17 [History] Gabapentin [Neurontin] 300 mg PO BID 01/28/17 [History] Sertraline HCl [Zoloft] 150 mg PO DAILY 01/28/17 [History] Brinzolamide/Brimonidine Tart [Simbrinza 1%-0.2% Eye Drops] 1 drop BOTH EYES BID 12/06/19 [History] Rivaroxaban [Xarelto] 20 mg PO AC-SUPPER 12/06/19 [History] Betaxolol HCl [Betaxolol HCl 0.5% Ophth Soln] 1 drop BOTH EYES DAILY 11/16/20 [History] Bimatoprost [Lumigan 0.01% Ophth Soln] 1 drop BOTH EYES HS 11/16/20 [History] Losartan [Cozaar] 50 mg PO DAILY 11/16/20 [History] clonazePAM [KlonoPIN] 1 mg PO BID 12/02/20 [History] Diltiazem Oral [Cardizem*] 30 mg PO TID #90 tab 12/05/20 [Rx] Albuterol Inhaler [Ventolin Hfa Inhaler] 2 puff INHALATION RT-QID PRN 03/01/22 [History] Chlorthalidone [Hygroton] 25 mg PO DAILY 03/01/22 [History] Follow up Appointment(s)/Referral(s): Stefan Rivera MD [STAFF PHYSICIAN] - 1 Week Rg Barba DO [Primary Care Provider] - 1-2 days Discharge Disposition: [facility] TO [facility]
== END 2022-03-07 15:08 | disposition hospice, home (50) | DRG 389 ==
LOC: EC 00:04 → 4SSUR 03:59
PROVIDERS: ADMIT Hospitalist; ATTEND Hospitalist
PROC: 0D9670Z Drainage of Stomach with Drainage Device, Via Natural or Artificial Opening (ICD-10-PCS; principal; 2022-03-01)
DX: K56.690 Other partial intestinal obstruction (principal); E72.12 Methylenetetrahydrofolate reductase deficiency; I27.82 Chronic pulmonary embolism; J96.11 Chronic respiratory failure with hypoxia; I82.509 Chronic embolism and thrombosis of unspecified deep veins of unspecified lower extremity; I48.4 Atypical atrial flutter; J98.11 Atelectasis; I27.29 Other secondary pulmonary hypertension; G40.909 Epilepsy, unspecified, not intractable, without status epilepticus; E11.9 Type 2 diabetes mellitus without complications; I10 Essential (primary) hypertension; J44.9 Chronic obstructive pulmonary disease, unspecified; J45.40 Moderate persistent asthma, uncomplicated; Z68.33 Body mass index [BMI] 33.0-33.9, adult; E66.9 Obesity, unspecified; K44.9 Diaphragmatic hernia without obstruction or gangrene; F32.A Depression, unspecified; I08.3 Combined rheumatic disorders of mitral, aortic and tricuspid valves; J98.6 Disorders of diaphragm; I48.0 Paroxysmal atrial fibrillation; Z66 Do not resuscitate; Z51.5 Encounter for palliative care; E78.5 Hyperlipidemia, unspecified; R77.8 Other specified abnormalities of plasma proteins; K43.2 Incisional hernia without obstruction or gangrene; M15.9 Polyosteoarthritis, unspecified; F41.9 Anxiety disorder, unspecified; I25.10 Atherosclerotic heart disease of native coronary artery without angina pectoris; R26.9 Unspecified abnormalities of gait and mobility; K21.9 Gastro-esophageal reflux disease without esophagitis; R00.1 Bradycardia, unspecified; E87.6 Hypokalemia; R04.0 Epistaxis; Z95.828 Presence of other vascular implants and grafts; Z99.81 Dependence on supplemental oxygen; Z90.49 Acquired absence of other specified parts of digestive tract; Z79.899 Other long term (current) drug therapy; Z79.891 Long term (current) use of opiate analgesic; Z79.01 Long term (current) use of anticoagulants; Z79.51 Long term (current) use of inhaled steroids; Z88.0 Allergy status to penicillin; Z85.3 Personal history of malignant neoplasm of breast; Z90.11 Acquired absence of right breast and nipple; Z90.81 Acquired absence of spleen; Z93.1 Gastrostomy status; Z98.61 Coronary angioplasty status; Z87.19 Personal history of other diseases of the digestive system
CPT/HCPCS: 36415; 71045; 74176; 80048; 80053; 81001; 82150; 83605; 83690; 84132; 84484; 85025; 87086; 93005; 94640; 94760; 96361; 96365; 96375; 96376; 99285

== ENCOUNTER 2022-03-07 14:47 | Inpatient (IN) | payer MEDICAID ==
[2022-03-07] MEDS ORDERED: ONDANSETRON 4 MG/2 ML VIAL IVP PRN (15:00)
[2022-03-07] MEDS ORDERED: SCOPOLAMINE 1 MG/72 HR PATCH TRANSDERM SCH (15:00)
[2022-03-07] MEDS ORDERED: MORPHINE SULFATE 2 MG/ML SYRINGE IV PRN (15:00)
[2022-03-07] MEDS ORDERED: ACETAMINOPHEN SUPPOSITORY 650 MG SUPP RECTAL PRN (15:00)
[2022-03-07] MEDS ORDERED: LORazepam 2 MG/ML INJ IV PRN (15:00)
[2022-03-07] MEDS: MORPHINE SULFATE (100 MG/2 ML) 100 MG in SODIUM CHLORIDE 0.9% 100 ML IV SCH (15:59)
[2022-03-07] MEDS ORDERED: PANTOPRAZOLE 40 MG/10 ML VIAL IVP PRN (23:03)
[2022-03-08] MEDS: GLYCOPYRROLATE 0.2 MG/ML 2 ML VIAL IVP PRN ×2 (09:25→20:54)
--- NOTE | 2022-03-08 15:16 | P.PN ---
Progress Note - Text Progress Note Date: 03/08/22 Presenting complaint: Lethargic Hospital course: Patient under GIP/inpatient hospice Comfort care measures. Patient is planning a bit. Lethargic. NG tube in place. Morphine drip. Several family members at the bedside. Patient appears comfortable. Questions answered. On examination: Lethargic Respiration: Increased, decreased breath sounds NG tube Appears comfortable End-of-life care. Comfort measures. Including morphine drip, Ativan when necessary, scopolamine patch
[2022-03-08] MEDS: MORPHINE SULFATE (100 MG/2 ML) 100 MG in SODIUM CHLORIDE 0.9% 100 ML IV SCH (21:07)
[2022-03-09] MEDS: GLYCOPYRROLATE 0.2 MG/ML 2 ML VIAL IVP PRN ×2 (03:14→09:51)
[2022-03-09 07:42] VITALS: PULSE 64
[2022-03-09 09:33] VITALS: RESP 20
--- NOTE | 2022-03-09 10:31 | P.HPIM ---
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 At her baseline uses a walker, but goes outside.. Patient is 3 weeks been having trouble with constipation. Has gone to her PCP trying different laxatives. Decreased appetite. Patient's had previous abdo erika surgery with 3 abdominal hernias and a mesh placement has been told to have any further surgeries. Yesterday started out with increasing abdominal pain rather severe. Dry heaving. No fever no chills. Admitted with partial small bowel obstruction. NG tube placed. 03/02/2022: NG tube to suction continues. Decreased abdominal pain. No factors. No BM. IV fluids. Nothing by mouth. 03/03/2022: NG tube suction continues. Had some epistaxis earlier. We'll put local ointment. Patient earlier this month had epistaxis with cauterization. Has passed some flatus. No BM. 03/04/2022: NG tube to suction continues. No flatus. In bed. No nausea vomiting. Patient went into atrial flutter fibrillation uncontrolled. Cardizem increased to 60 mg 3 times a day. Continue IV cefepime IV Flagyl. 03/05/2022: NG tube was discontinued. Yesterday. Given clear liquids. Today started on full liquids by surgery. Has passed flatus. Tired. Heart rate controlled 03/06/2022: Computed tomography scan done today again shows high-grade distal small bowel obstruction. Patient's 2 daughters at the bedside. Discussed with the patient and 2 daughters. Patient is a high risk for surgery but no other option. NG tube is being reordered by surgery. Possible surgery tomorrow. 03/07/2022: NG tube in place. Abdominal pain. Getting IV Dilaudid. Patient has decided not for any surgery. Wants to go comfort care. [facility] hospice is being consulted. Questions answered 03/08/2022: [facility]:(Start covering Dr. Ashraf today ) patient is lying in bed, does not look in distress, nonresponsive, NG tube in place. Morphine drip is running. Family and DrShahram at bedside and all questions answered Eventually patient at 10:13 Physical exam -Gen: patient is a unresponsive, NG tube in place CVS: S1-S2, RRR, no murmur Lungs: B/L CTA, no wheezing Abdomen: soft, no distention, no tenderness, positive bowel sounds Extremity: no leg edema or induration Time spent more than 35 minutes Past Medical History Past Medical History: Atrial Fibrillation, Asthma, Cancer, COPD, Diabetes Aileen litus, Deep Vein Thrombosis (DVT), Eye Disorder, GERD/Reflux, Hyperlipidemia, Hypertension, Pneumonia, Pulmonary Embolus (PE), Seizure Disorder Additional Past Medical History / Comment(s): Paroxysmal afib, pt had traumatic fall 08/2018 and had takoMTHFR gene mutation, PEs x3, DVTs R arm and bilateral legs, hemolytic anemia, pericardial effusion with pericardial window, NIDDM type II-diet controlled now, R breast cancer with mastectomy, bronchitis, bronchial asthma, home oxygen at 2L/[place] ATC, diverticulitis with bowel resection, constipation, chronic abdominal hernia, hiatal hernia, bilateral glaucoma, had 1 seizure in past when young History of Any Multi-Drug Resistant Organisms: None Reported Past Surgical History: Appendectomy, Breast Surgery, Hysterectomy Additional Past Surgical History / Comment(s): Ross filter, pericardial window, cardiac caths, R mastectomy, colonoscopies/benign polypectomies, bowel resection for diverticulitis, spleenectomy d/t hemolytic anemia, abdominal hernia surgeries/mesh. Past Anesthesia/Blood Transfusion Reactions: No Reported Reaction Additional Past Anesthesia/Blood Transfusion Reaction / Comment(s): trouble coming out of anesthesia. hemolytic anemia. Past Psychological History: Anxiety, Depression Additional Psychological History / Comment(s): Pt resides alone in a senior apartment. She uses oxygen at 2L/NC ATC. She has a glucometer but no supplies any longer-now diabetes is diet controlled. She uses a walker. She no longer drives, family or friends take her to appts. Smoking Status: Never smoker Past Alcohol Use History: None Reported Past Drug Use History: None Reported - Past Family History Mother Family Medical History: Coronary Artery Disease (CAD), Myocardial Infarction (MT) Additional Family Medical History / Comment(s): Mother had rheumatic fever. She had her first MT in her late 30s and of a MT at the age of 54 yrs. Father History Unknown: Yes Family Medical History: No Reported History Additional Family Medical History / Comment(s): Father in a traumatic accident when pt was 6 yrs old. Medications and Allergies Home Medications Medication Instructions Recorded Confirmed Type Atorvastatin Calcium [Lipitor] 10 mg PO AC-SUPPER 01/28/17 03/07/22 History Gabapentin [Neurontin] 300 mg PO BID 01/28/17 03/07/22 History Sertraline HCl [Zoloft] 150 mg PO DAILY 01/28/17 03/07/22 History Brinzolamide/Brimonidine Tart 1 drop BOTH EYES BID 12/06/19 03/07/22 History [Simbrinza 1%-0.2% Eye Drops] Rivaroxaban [Xarelto] 20 mg PO AC-SUPPER 12/06/19 03/07/22 History Betaxolol HCl [Betaxolol HCl 0.5% 1 drop BOTH EYES DAILY 11/16/20 03/07/22 History Ophth Soln] Bimatoprost [Lumigan 0.01% Ophth 1 drop BOTH EYES HS 11/16/20 03/07/22 History Soln] Losartan [Cozaar] 50 mg PO DAILY 11/16/20 03/07/22 History clonazePAM [KlonoPIN] 1 mg PO BID 12/02/20 03/07/22 History Diltiazem Oral [Cardizem*] 30 mg PO TID #90 tab 12/05/20 03/07/22 Rx Albuterol Inhaler [Ventolin Hfa 2 puff INHALATION RT-QID PRN 03/01/22 03/07/22 History Inhaler] Chlorthalidone [Hygroton] 25 mg PO DAILY 03/01/22 03/07/22 History Allergies Allergy/AdvReac Type Severity Reaction Status Date / Time Penicillins Allergy Rash/Hives Verified 03/01/22 08:13 Physical Exam Vitals: Vital Signs Pulse Resp 03/09/22 09:33 20 03/09/22 07:41 64 18 03/09/22 06:18 12 03/09/22 04:48 12 03/09/22 03:50 16 03/09/22 02:00 20 03/08/22 19:29 14 Intake and Output 03/08/22 03/09/22 03/09/22 22:59 06:59 14:59 Intake Total 71.4 34.467 23.45 Balance 71.4 34.467 23.45 Intake: Intake, IV Titration 71.4 34.467 23.45 Amount Morphine Sulfate (100 mg/ 71.4 34.467 23.45 2 ml) 100 mg In Sodium Chloride 0.9% 100 ml @ 1 MG/HR 1.02 mls/hr IV . Q24H [facility] Rx#:[id number] Other: Voiding Method Indwelling Catheter
--- NOTE | 2022-03-09 10:32 | P.DS ---
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 At her baseline uses a walker, but goes outside.. Patient is 3 weeks been having trouble with constipation. Has gone to her PCP trying different laxatives. Decreased appetite. Patient's had previous abdo erika surgery with 3 abdominal hernias and a mesh placement has been told to have any further surgeries. Yesterday started out with increasing abdominal pain rather severe. Dry heaving. No fever no chills. Admitted with partial small bowel obstruction. NG tube placed. 03/02/2022: NG tube to suction continues. Decreased abdominal pain. No factors. No BM. IV fluids. Nothing by mouth. 03/03/2022: NG tube suction continues. Had some epistaxis earlier. We'll put local ointment. Patient earlier this month had epistaxis with cauterization. Has passed some flatus. No BM. 03/04/2022: NG tube to suction continues. No flatus. In bed. No nausea vomiting. Patient went into atrial flutter fibrillation uncontrolled. Cardizem increased to 60 mg 3 times a day. Continue IV cefepime IV Flagyl. 03/05/2022: NG tube was discontinued. Yesterday. Given clear liquids. Today started on full liquids by surgery. Has passed flatus. Tired. Heart rate controlled 03/06/2022: Computed tomography scan done today again shows high-grade distal small bowel obstruction. Patient's 2 daughters at the bedside. Discussed with the patient and 2 daughters. Patient is a high risk for surgery but no other option. NG tube is being reordered by surgery. Possible surgery tomorrow. 03/07/2022: NG tube in place. Abdominal pain. Getting IV Dilaudid. Patient has decided not for any surgery. Wants to go comfort care. [facility] hospice is being consulted. Questions answered 03/08/2022: Patient was [facility] 03/09/2012:(Start covering Dr. Ashraf today ) patient is lying in bed, does not look in distress, nonresponsive, NG tube in place. Morphine drip is running. Family and DrShahram at bedside and all questions answered Eventually patient at 10:13 Physical exam -Gen: patient is a unresponsive, NG tube in place CVS: S1-S2, RRR, no murmur Lungs: B/L CTA, no wheezing Abdomen: soft, no distention, no tenderness, positive bowel sounds Extremity: no leg edema or induration Time spent more than 35 minutes Plan - Discharge Summary New Discharge Prescriptions: No Action Sertraline HCl [Zoloft] 150 mg PO DAILY Atorvastatin Calcium [Lipitor] 10 mg PO AC-SUPPER Gabapentin [Neurontin] 300 mg PO BID Rivaroxaban [Xarelto] 20 mg PO AC-SUPPER Brinzolamide/Brimonidine Tart [Simbrinza 1%-0.2% Eye Drops] 1 drop BOTH EYES BID Betaxolol HCl [Betaxolol HCl 0.5% Ophth Soln] 1 drop BOTH EYES DAILY Losartan [Cozaar] 50 mg PO DAILY Bimatoprost [Lumigan 0.01% Ophth Soln] 1 drop BOTH EYES HS clonazePAM [KlonoPIN] 1 mg PO BID Diltiazem Oral [Cardizem*] 30 mg PO TID #90 tab Albuterol Inhaler [Ventolin Hfa Inhaler] 2 puff INHALATION RT-QID PRN PRN Reason: Shortness Of Breath Chlorthalidone [Hygroton] 25 mg PO DAILY Discharge Medication List Atorvastatin Calcium [Lipitor] 10 mg PO AC-SUPPER 01/28/17 [History] Gabapentin [Neurontin] 300 mg PO BID 01/28/17 [History] Sertraline HCl [Zoloft] 150 mg PO DAILY 01/28/17 [History] Brinzolamide/Brimonidine Tart [Simbrinza 1%-0.2% Eye Drops] 1 drop BOTH EYES BID 12/06/19 [History] Rivaroxaban [Xarelto] 20 mg PO AC-SUPPER 12/06/19 [History] Betaxolol HCl [Betaxolol HCl 0.5% Ophth Soln] 1 drop BOTH EYES DAILY 11/16/20 [History] Bimatoprost [Lumigan 0.01% Ophth Soln] 1 drop BOTH EYES HS 11/16/20 [History] Losartan [Cozaar] 50 mg PO DAILY 11/16/20 [History] clonazePAM [KlonoPIN] 1 mg PO BID 12/02/20 [History] Diltiazem Oral [Cardizem*] 30 mg PO TID #90 tab 12/05/20 [Rx] Albuterol Inhaler [Ventolin Hfa Inhaler] 2 puff INHALATION RT-QID PRN 03/01/22 [History] Chlorthalidone [Hygroton] 25 mg PO DAILY 03/01/22 [History]
== END 2022-03-09 15:10 | disposition expired | DRG 951 ==
LOC: 4SSUR 15:09
PROVIDERS: ADMIT Hospitalist; ATTEND Hospitalist
DX: Z51.5 Encounter for palliative care (principal); K56.600 Partial intestinal obstruction, unspecified as to cause; E72.12 Methylenetetrahydrofolate reductase deficiency; I27.82 Chronic pulmonary embolism; I82.503 Chronic embolism and thrombosis of unspecified deep veins of lower extremity, bilateral; J96.11 Chronic respiratory failure with hypoxia; D58.9 Hereditary hemolytic anemia, unspecified; I48.92 Unspecified atrial flutter; Z66 Do not resuscitate; J45.40 Moderate persistent asthma, uncomplicated; I27.20 Pulmonary hypertension, unspecified; K43.9 Ventral hernia without obstruction or gangrene; I10 Essential (primary) hypertension; I48.0 Paroxysmal atrial fibrillation; E66.01 Morbid (severe) obesity due to excess calories; Z68.33 Body mass index [BMI] 33.0-33.9, adult; F41.9 Anxiety disorder, unspecified; F32.A Depression, unspecified; J98.6 Disorders of diaphragm; G40.909 Epilepsy, unspecified, not intractable, without status epilepticus; K59.00 Constipation, unspecified; K21.9 Gastro-esophageal reflux disease without esophagitis; E78.5 Hyperlipidemia, unspecified; H40.9 Unspecified glaucoma; E11.9 Type 2 diabetes mellitus without complications; J44.9 Chronic obstructive pulmonary disease, unspecified; Z99.81 Dependence on supplemental oxygen; Z88.0 Allergy status to penicillin; Z79.899 Other long term (current) drug therapy; Z79.01 Long term (current) use of anticoagulants; Z90.11 Acquired absence of right breast and nipple; Z85.3 Personal history of malignant neoplasm of breast; Z87.01 Personal history of pneumonia (recurrent); Z91.81 History of falling; Z90.49 Acquired absence of other specified parts of digestive tract